=== PATIENT | male | born 1950 | race Caucasian/White ===

== ENCOUNTER → 2017-02-10 | Outpatient (CLI) | payer MEDICAID ==
[2017-02-10 12:23] LABS: CHCM 33.2; HCT 53.5 % (39.0-53.0); HDW 2.64; HGB 17.7 gm/dL (13.0-17.5); MCV 93.9 fL (80.0-100.0); RDW 13.4 % (11.5-15.5); WBC 8.7 k/uL (3.8-10.6)
[2017-02-10 12:38] LABS: ALT 35 U/L (21-72); AST 35 U/L (17-59); Alkaline Phosphatase 53 U/L (38-126); Anion Gap 10 mmol/L; Blood Urea Nitrogen 19 mg/dL (9-20); Calcium 9.7 mg/dL (8.4-10.2); Carbon Dioxide 26 mmol/L (22-30); Chloride 106 mmol/L (98-107); Cholesterol 259 mg/dL (<200); Glucose 112 mg/dL (74-99); HDL Cholesterol 76 mg/dL (40-60); Non-African American GFR(MDRD) >60 (>60 ml/min/1.73 sqM); Potassium 4.6 mmol/L (3.5-5.1); Sodium 142 mmol/L (137-145); Total Bilirubin 0.8 mg/dL (0.2-1.3); Triglycerides 206 mg/dL (<150)
== END ==
LOC: LABWHC1 12:04
PROVIDERS: ATTEND Nurse Practitioner Family
DX: E55.9 Vitamin D deficiency, unspecified (principal); R53.83 Other fatigue; E11.9 Type 2 diabetes mellitus without complications
CPT/HCPCS: 36415; 80053; 80061; 82306; 84439; 84443; 84481; 85027

== ENCOUNTER → 2017-03-01 | Outpatient (CLI) | payer MEDICAID ==
--- NOTE | 2017-03-02 11:13 | ECHOF ---
Referral Reason:R01.1 undiagnosed cardiac murmur MEASUREMENTS -------- HEIGHT: 170.2 cm WEIGHT: 108.9 kg BP: 120/80 RVIDd: 2.9 cm (< 3.3) IVSd: 1.4 cm (0.6 - 1.1) LVIDd: 4.9 cm (3.9 - 5.3) LVPWd: 1.3 cm (0.6 - 1.1) IVSs: 1.7 cm LVIDs: 3.5 cm LVPWs: 1.1 cm LA Diam: 4.0 cm (2.7 - 3.8) Ao Diam: 3.4 cm (2.0 - 3.7) AV Cusp: 1.0 cm (1.5 - 2.6) LA Diam: 4.0 cm (2.7 - 3.8) MV EXCURSION: 17.961 mm (> 18.000) MV EF SLOPE: 83 mm/s (70 - 150) EPSS: 0.6 cm MV E Bradley: 0.69 m/s MV A Bradley: 1.04 m/s MV E/A Ratio: 0.66 AV maxP.88 mmHg AV meanP.27 mmHg RAP: 5.00 mmHg RVSP: 18.48 mmHg FINDINGS -------- Sinus rhythm. This was a technically adequate study. There is moderate concentric left ventricular hypertrophy. Overall left ventricular systolic function is normal with, an EF between 55 - 60 %. The right ventricle is normal in size. The left atrial size is normal. The right atrial size is normal. Moderate to severe aortic stenosis with peak/mean pressure gradient of 67.88mmHg / 37.27mmHg, the aortic valve area by continuity equation is 1.0cm. Mild mitral annular calcification present. No mitral regurgitation. Mild tricuspid regurgitation present. There is no evidence of pulmonary hypertension. The right ventricular systolic pressure, as measured by Doppler, is 18.48mmHg. There is no pulmonic regurgitation present. The aortic root size is normal. There is no pericardial effusion. CONCLUSIONS -------- 1. There is moderate concentric left ventricular hypertrophy. 2. Moderate to severe aortic stenosis with peak/mean pressure gradient of 67.88mmHg / 37.27mmHg, the aortic valve area by continuity equation is 1.0cm. 3. Mild mitral annular calcification present. 4. No mitral regurgitation. 5. Mild tricuspid regurgitation present. 6. There is no evidence of pulmonary hypertension. 7. The right ventricular systolic pressure, as measured by Doppler, is 18.48mmHg. ECONOMIC SPECIALIST: Mila Mcclure RDCS
== END | disposition home or self-care (01) ==
LOC: RADECHMAIN 14:50
PROVIDERS: ATTEND Family Medicine
DX: I35.0 Nonrheumatic aortic (valve) stenosis (principal); I07.1 Rheumatic tricuspid insufficiency; I35.8 Other nonrheumatic aortic valve disorders
CPT/HCPCS: 93306

== ENCOUNTER → 2017-05-14 | Outpatient (CLI) | payer MEDICAID ==
[2017-05-14 17:59] LABS: Hepatitis C Virus IgG Ab Negative (Negative); Hepatitis C Virus IgG Index 0.08
[2017-05-14 18:08] LABS: Vitamin B12 >1000 pg/mL (239-931)
[2017-05-14 18:35] LABS: Hemoglobin A1C 6.5 % (4.2-6.1)
== END | disposition home or self-care (01) ==
LOC: LABWHC1 16:34
PROVIDERS: ATTEND Family Medicine
DX: Z00.01 Encounter for general adult medical examination with abnormal findings (principal); E11.9 Type 2 diabetes mellitus without complications; R53.83 Other fatigue; Z12.5 Encounter for screening for malignant neoplasm of prostate; Z13.818 Encounter for screening for other digestive system disorders
CPT/HCPCS: 86803; 82607; 83036; 36415; G0103

== ENCOUNTER → 2017-07-07 | Outpatient (CLI) | payer MEDICAID ==
[2017-07-07 09:04] LABS: CHCM 33.8; HCT 49.8 % (39.0-53.0); HDW 2.85; HGB 16.7 gm/dL (13.0-17.5); MCH 31.9 pg (25.0-35.0); MCHC 33.5 g/dL (31.0-37.0); MCV 95.2 fL (80.0-100.0); Mean Platelet Volume 8.8; RBC 5.24 m/uL (4.30-5.90); RDW 14.2 % (11.5-15.5); WBC 8.7 k/uL (3.8-10.6)
[2017-07-07 09:13] LABS: ALT 33 U/L (21-72); AST 25 U/L (17-59); Alkaline Phosphatase 64 U/L (38-126); Anion Gap 10 mmol/L; Blood Urea Nitrogen 11 mg/dL (9-20); Calcium 9.3 mg/dL (8.4-10.2); Carbon Dioxide 25 mmol/L (22-30); Chloride 105 mmol/L (98-107); Cholesterol 250 mg/dL (<200); Creatine Kinase 172 U/L (55-170); Glucose 162 mg/dL (74-99); HDL Cholesterol 75 mg/dL (40-60); Non-African American GFR(MDRD) >60 (>60 ml/min/1.73 sqM); Potassium 4.5 mmol/L (3.5-5.1); Sodium 140 mmol/L (137-145); Total Bilirubin 0.6 mg/dL (0.2-1.3); Total Protein 7.3 g/dL (6.3-8.2)
== END ==
LOC: LABWHC1 07:49
PROVIDERS: ATTEND Internal Medicine Cardiovascular Disease
DX: E78.2 Mixed hyperlipidemia (principal); I10 Essential (primary) hypertension; I25.118 Atherosclerotic heart disease of native coronary artery with other forms of angina pectoris; R00.2 Palpitations; R94.31 Abnormal electrocardiogram [ECG] [EKG]; I25.728 Atherosclerosis of autologous artery coronary artery bypass graft(s) with other forms of angina pectoris
CPT/HCPCS: 36415; 80053; 80061; 82550; 84443; 85027

== ENCOUNTER → 2017-09-07 | Outpatient (CLI) | payer MEDICAID ==
--- NOTE | 2017-09-07 10:06 | CT ---
EXAMINATION TYPE: CT sinus wo con DATE OF EXAM: 09/07/2017 COMPARISON: CT orbits dated 04/05/2010 HISTORY: Chronic sinusitis CT DLP: 593.60 mGycm. Automated Exposure Control for Dose Reduction was Utilized. TECHNIQUE: CT scan of the sinuses is performed without contrast, axial images are obtained, coronal r eformatted images are also reviewed. FINDINGS: Bilateral antrostomy defects are seen with patent ostiomeatal complexes. There is left midd le and inferior nasal turbinate mucosal hypertrophy that is nonobstructive. Postsurgical changes also seen of the maxilla with persistent maxillary spine nonunited fracture. Heterotopic ossification of the inferior lateral wall of the right maxillary sinuses likely from prior fracture. Small polypoid m ucosal thickening is present of the anterior right maxillary sinus emanating from the inferior orbita l wall measuring 4 mm. There is expansion of the left posterior ethmoid air cell with focal erosive c omponent superiorly on series 6 image 26 that have progressed from the prior exam of 2009. No gross evidence of current meningeal thickening or intracranial adjacent abscess. This soft tissue lesion is expansile measuring 1.4 x 1.8 x 1.1 cm and transverse by anterior posterior by craniocaudal dimensio n. This previously measured approximately 1.4 x 0.9 x 1.0 cm on the exam of 04/05/2010. Remaining para nasal sinuses are well aerated other than an aplastic left frontal sinus. Note is made of a left middle cranial fossa extra-axial fluid attenuated mass, probable arachnoid cys t with impression and mass effect upon the left temporal lobe. Incidental note is made of atheromatou s calcifications of the intracranial vasculature. IMPRESSION: 1. Expansile left posterior ethmoid air cell lesion measuring 1.4 x 1.8 x 1.1 cm with focal area of c ortical erosion of the calvarium. No gross evidence of current meningeal thickening or intracranial a djacent abscess. This most likely represents a mucocele although other etiologies are possible. 2. Postoperative changes of the maxillary bone and maxillary sinuses. Ostiomeatal complexes are paten t. 4 mm area of polypoid right maxillary mucosal thickening is seen. Remaining paranasal sinuses are well aerated. 3. Stable extra-axial middle cranial fossa fluid attenuated left probable arachnoid cyst. A [place] message has been communicated to John Castanon DO via the [employer] Critical Result system on 09/07/2017 10:04 AM, Message ID [id number].
== END ==
LOC: RADCTMAIN 08:53
PROVIDERS: ATTEND Otolaryngology
DX: J34.89 Other specified disorders of nose and nasal sinuses (principal); Z98.890 Other specified postprocedural states
CPT/HCPCS: 70486

== ENCOUNTER → 2017-11-15 | Outpatient (CLI) | payer MEDICAID ==
[2017-11-15 08:20] LABS: HGB 15.8 gm/dL (13.0-17.5); MCH 30.1 pg (25.0-35.0); MCHC 32.3 g/dL (31.0-37.0); MCV 93.3 fL (80.0-100.0); Mean Platelet Volume 8.2; Platelet Count 270 k/uL (150-450); RBC 5.25 m/uL (4.30-5.90); RDW 12.9 % (11.5-15.5); WBC 9.2 k/uL (3.8-10.6)
[2017-11-15 08:46] LABS: ALT 30 U/L (21-72); AST 25 U/L (17-59); Albumin 4.1 g/dL (3.5-5.0); Alkaline Phosphatase 70 U/L (38-126); Anion Gap 11 mmol/L; Blood Urea Nitrogen 13 mg/dL (9-20); Calcium 9.9 mg/dL (8.4-10.2); Carbon Dioxide 26 mmol/L (22-30); Chloride 103 mmol/L (98-107); Cholesterol 277 mg/dL (<200); Creatine Kinase 109 U/L (55-170); Glucose 165 mg/dL (74-99); HDL Cholesterol 74 mg/dL (40-60); LDL Cholesterol,Calculated 180 mg/dL (0-99); Potassium 4.6 mmol/L (3.5-5.1); Sodium 140 mmol/L (137-145); Total Bilirubin 0.5 mg/dL (0.2-1.3); Triglycerides 115 mg/dL (<150)
== END | disposition home or self-care (01) ==
LOC: LABWHC1 07:34
PROVIDERS: ATTEND Internal Medicine Cardiovascular Disease
DX: E78.2 Mixed hyperlipidemia (principal); E11.69 Type 2 diabetes mellitus with other specified complication; I25.728 Atherosclerosis of autologous artery coronary artery bypass graft(s) with other forms of angina pectoris; I10 Essential (primary) hypertension; R00.2 Palpitations
CPT/HCPCS: 36415; 80053; 80061; 82550; 84443; 85027

== ENCOUNTER → 2018-03-20 | Outpatient (CLI) | payer MEDICARE ==
[2018-03-20 14:14] LABS: HCT 46.8 % (39.0-53.0); HGB 15.6 gm/dL (13.0-17.5); MCH 30.2 pg (25.0-35.0); MCHC 33.4 g/dL (31.0-37.0); MCV 90.6 fL (80.0-100.0); Mean Platelet Volume 8.5; Platelet Count 218 k/uL (150-450); RBC 5.17 m/uL (4.30-5.90); RDW 13.2 % (11.5-15.5)
[2018-03-20 14:27] LABS: ALT 34 U/L (21-72); AST 24 U/L (17-59); Albumin 4.1 g/dL (3.5-5.0); Alkaline Phosphatase 63 U/L (38-126); Anion Gap 11 mmol/L; Blood Urea Nitrogen 12 mg/dL (9-20); Calcium 9.1 mg/dL (8.4-10.2); Carbon Dioxide 25 mmol/L (22-30); Chloride 102 mmol/L (98-107); Glucose 155 mg/dL (74-99); Potassium 4.2 mmol/L (3.5-5.1); Sodium 138 mmol/L (137-145); Total Bilirubin 0.6 mg/dL (0.2-1.3); Total Protein 6.6 g/dL (6.3-8.2)
[2018-03-20 22:28] LABS: Hemoglobin A1C 7.7 % (4.0-6.0)
== END | disposition home or self-care (01) ==
LOC: LABWHC1 12:48
PROVIDERS: ATTEND Internal Medicine Cardiovascular Disease
DX: E11.69 Type 2 diabetes mellitus with other specified complication (principal); I25.118 Atherosclerotic heart disease of native coronary artery with other forms of angina pectoris; E78.2 Mixed hyperlipidemia; I10 Essential (primary) hypertension; E55.9 Vitamin D deficiency, unspecified
CPT/HCPCS: 36415; 80053; 82306; 83036; 85027

== ENCOUNTER → 2018-04-17 | Outpatient (CLI) | payer MEDICARE ==
[2018-04-17 13:41] LABS: Cholesterol 236 mg/dL (<200); HDL Cholesterol 61 mg/dL (40-60); LDL Cholesterol,Calculated 137 mg/dL (0-99); Triglycerides 192 mg/dL (<150)
== END | disposition home or self-care (01) ==
LOC: LABWHC1 11:54
PROVIDERS: ATTEND Family Medicine
DX: Z00.01 Encounter for general adult medical examination with abnormal findings (principal); I25.10 Atherosclerotic heart disease of native coronary artery without angina pectoris; E78.5 Hyperlipidemia, unspecified; Z12.5 Encounter for screening for malignant neoplasm of prostate
CPT/HCPCS: 36415; 80061

== ENCOUNTER → 2019-02-24 | Outpatient (CLI) | payer MEDICARE ==
[2019-02-24 07:23] LABS: Basophils # (A) 0.1 k/uL (0-0.2); Basophils % (A) 1 %; Eosinophils # (A) 0.3 k/uL (0-0.7); Eosinophils % (A) 3 %; HCT 49.5 % (39.0-53.0); HGB 16.3 gm/dL (13.0-17.5); Lymphocytes # (A) 2.9 k/uL (1.0-4.8); Lymphocytes % (A) 32 %; MCH 30.7 pg (25.0-35.0); MCHC 32.9 g/dL (31.0-37.0); MCV 93.2 fL (80.0-100.0); Mean Platelet Volume 8.1; Monocytes # (A) 0.6 k/uL (0-1.0); Monocytes % (A) 7 %; Neutrophils # (A) 4.9 k/uL (1.3-7.7); Neutrophils % (A) 55 %; Platelet Count 234 k/uL (150-450); RBC 5.31 m/uL (4.30-5.90)
[2019-02-24 09:43] LABS: T4, Free (Free Thyroxine) 0.89 ng/dL (0.78-2.19)
== END | disposition home or self-care (01) ==
LOC: LABWHC1 06:54
PROVIDERS: ATTEND Psychiatry & Neurology Neurology
DX: E11.9 Type 2 diabetes mellitus without complications (principal); Z79.899 Other long term (current) drug therapy
CPT/HCPCS: 36415; 82306; 84439; 84443; 84481; 85025

== ENCOUNTER → 2019-07-07 | Outpatient (CLI) | payer MEDICARE ==
[2019-07-07 16:16] LABS: African American GFR (CKD) 106.4 (60.0-200.0); Albumin 4.5 g/dL (3.80-4.90); Albumin/Globulin Ratio 2.25 (1.60-3.17); BUN/Creat Ratio 16.25 Ratio (12.00-20.00); Calcium 9.7 mg/dL (8.7-10.3); Chol/HDL Ratio 3.44; LDL Cholesterol,Calculated 134.8 mg/dL (0.0-131.0); Potassium 4.4 mmol/L (3.5-5.5); Total Bilirubin 0.8 mg/dL (0.2-1.2); Total Protein 6.5 g/dL (6.2-8.2); VLDL Calculation 41.2 mg/dL (5.00-40.00)
[2019-07-07 19:48] LABS: Hemoglobin A1C 7.1 % (4.0-6.0)
== END | disposition home or self-care (01) ==
LOC: LABWHC1 07:16
PROVIDERS: ATTEND Family Medicine
DX: Z12.5 Encounter for screening for malignant neoplasm of prostate (principal); R53.83 Other fatigue; E55.9 Vitamin D deficiency, unspecified; Z00.01 Encounter for general adult medical examination with abnormal findings; E78.5 Hyperlipidemia, unspecified; E11.65 Type 2 diabetes mellitus with hyperglycemia; M54.5 Low back pain; I35.0 Nonrheumatic aortic (valve) stenosis; I25.10 Atherosclerotic heart disease of native coronary artery without angina pectoris
CPT/HCPCS: 36415; 80053; 80061; 82306; 82533; 83036; 84153; 84443

== ENCOUNTER 2019-09-06 09:04 | Inpatient (IN) | payer MEDICARE ==
[2019-09-06] MEDS ORDERED: SODIUM CHLORIDE 0.9% 1,000 ML IV STA (09:30)
[2019-09-06 10:02] LABS: Basophils # (A) 0.2 k/uL (0-0.2); Basophils % (A) 1 %; Eosinophils # (A) 0.5 k/uL (0-0.7); Eosinophils % (A) 4 %; HCT 47.2 % (39.0-53.0); HGB 15.7 gm/dL (13.0-17.5); Lymphocytes # (A) 2.7 k/uL (1.0-4.8); Lymphocytes % (A) 23 %; MCH 31.2 pg (25.0-35.0); MCHC 33.3 g/dL (31.0-37.0); MCV 93.8 fL (80.0-100.0); Mean Platelet Volume 8.5; Monocytes # (A) 0.9 k/uL (0-1.0); Monocytes % (A) 8 %; Neutrophils # (A) 7.4 k/uL (1.3-7.7); Neutrophils % (A) 62 %; Platelet Count 257 k/uL (150-450); RBC 5.03 m/uL (4.30-5.90); RDW 12.6 % (11.5-15.5); WBC 11.9 k/uL (3.8-10.6)
[2019-09-06 10:11] LABS: ALT 37 U/L (21-72); AST 29 U/L (17-59); African American GFR (CKD) >90 (>60 ml/min/1.73 sqM); Albumin 4.1 g/dL (3.5-5.0); Alkaline Phosphatase 55 U/L (38-126); Anion Gap 7 mmol/L; Blood Urea Nitrogen 15 mg/dL (9-20); Calcium 9.5 mg/dL (8.4-10.2); Carbon Dioxide 27 mmol/L (22-30); Chloride 105 mmol/L (98-107); Glucose 173 mg/dL (74-99); INR 0.9 (<1.2); Non-African American GFR(CKD) 86 (>60 ml/min/1.73 sqM); Potassium 4.1 mmol/L (3.5-5.1); Prothrombin Time 9.5 sec (9.0-12.0); Sodium 139 mmol/L (137-145); Total Bilirubin 0.5 mg/dL (0.2-1.3)
--- NOTE | 2019-09-06 10:25 | ED ---
Dizziness HPI - General Source: patient, RN notes reviewed, old records reviewed Mode of arrival: wheelchair Limitations: no limitations <Diana Hendrickson - Last Filed: 09/06/19 11:41> <Raheem Walters - Last Filed: 09/06/19 12:12> - General Chief Complaint: Syncope Stated Complaint: syncope Time Seen by Provider: 09/06/19 09:22 - History of Present Illness Initial Comments: This patient's a 69-year-old male with a history of coronary artery disease, CABG in 1999, splenectomy sinus surgery and jaw surgery. He presents today for frequent episodes of syncope. Patient reports that he had one last night where he was starting to feel dizzy and lightheaded, passed out landing on the ground for approximately 10 minutes. He complains that he's been having some headaches. He denies any chest pain prior to the syncopal episodes. He states that he does have a headache at that time and has some abnormal breathing. Patient reports that he has not followed with a clinical informatics educator since his CABG in 1999. He has a history of diabetes and is on metformin. Incidental note Patient states that he's also been dealing with "a parasite infection". Patient states that he has a open wound over his mid back which she believes he pulled a parasite from. Patient states that he's had this for 2 weeks. States his ever had any symptoms like this before. He also states that he thinks that there is a parasite infection over his right eye brow. (Diana Hendrickson) - Related Data Home Medications Medication Instructions Recorded Confirmed metFORMIN HCL 1,000 mg PO BID 10/11/14 09/06/19 Calcium Carbonate [Calcium] 600 mg PO DAILY 09/06/19 09/06/19 Cholecalciferol [Vitamin D3 (25 1,000 unit PO DAILY 09/06/19 09/06/19 Mcg = 1000 Iu)] Gelatin 650mg 1,300 mg PO DAILY 09/06/19 09/06/19 Krill Oil 500 mg PO DAILY 09/06/19 09/06/19 Magnesium 200 mg PO DAILY 09/06/19 09/06/19 Milk Thistle 150 mg PO DAILY 09/06/19 09/06/19 [place]-3 Fatty Acids [[place]-3] 1,000 mg PO DAILY 09/06/19 09/06/19 Ubidecarenone [Co Q-10] 100 mg PO DAILY 09/06/19 09/06/19 Vitamin B Complex 1 cap PO DAILY 09/06/19 09/06/19 Allergies Allergy/AdvReac Type Severity Reaction Status Date / Time No Known Allergies Allergy Verified 09/06/19 11:05 Review of Systems ROS Other: All systems not noted in ROS Statement are negative. <Diana Hendrickson - Last Filed: 09/06/19 11:41> ROS Other: All systems not noted in ROS Statement are negative. <Raheem Walters - Last Filed: 09/06/19 12:12> ROS Statement: Those systems with pertinent positive or pertinent negative responses have been documented in the HPI. Past Medical History Past Medical History: Coronary Artery Disease (CAD) Additional Past Medical History / Comment(s): itp, History of Any Multi-Drug Resistant Organisms: None Reported Past Surgical History: Appendectomy, Coronary Bypass/CABG Additional Past Surgical History / Comment(s): spleenectomy, sinus surgery, jaw surgery Past Psychological History: No Psychological Hx Reported Smoking Status: Never smoker <Diana Hendrickson - Last Filed: 09/06/19 11:41> General Exam Limitations: no limitations General appearance: alert, in no apparent distress Head exam: Present: atraumatic, normocephalic, normal inspection Eye exam: Present: normal appearance, PERRL, EOMI. Absent: scleral icterus, conjunctival injection, periorbital swelling ENT exam: Present: normal exam, mucous membranes moist Neck exam: Present: normal inspection Respiratory exam: Present: normal lung sounds bilaterally. Absent: respiratory distress, wheezes, rales, rhonchi, stridor Cardiovascular Exam: Present: normal rhythm, systolic murmur. Absent: regular rate (Systolic murmur), normal heart sounds, diastolic murmur, rubs, gallop, clicks GI/Abdominal exam: Present: soft, normal bowel sounds. Absent: distended, tenderness, guarding, rebound, rigid Extremities exam: Present: normal inspection, full ROM, normal capillary refill. Absent: tenderness, pedal edema, joint swelling, calf tenderness Back exam: Present: normal inspection, other (small area of open wound over lower thoracic and lumbar spine. No abscess or purulent drainage) Neurological exam: Present: alert, oriented X3, CN II-XII intact Psychiatric exam: Present: normal affect, normal mood Skin exam: Present: warm, dry, intact, normal color. Absent: rash <Diana Hendrickson - Last Filed: 09/06/19 11:41> - General Exam Comments Initial Comments: 69-year-old male. No distress. (Diana Hendrickson) Course <RomeoRaheem - Last Filed: 09/06/19 12:12> Vital Signs 09/06/19 09/06/19 09/06/19 09:06 09:43 10:09 Temperature 98.1 F 98.3 F Pulse Rate 88 87 Respiratory 16 20 20 Rate Blood Pressure 138/82 149/87 O2 Sat by Pulse 96 93 L Oximetry 09/06/19 11:30 Temperature Pulse Rate 74 Respiratory 18 Rate Blood Pressure 129/79 O2 Sat by Pulse 95 Oximetry - Reevaluation(s) Reevaluation #1: Physician medical support assistant supervision: I proceeded [id number] evaluation the patient patient did present with complaints of frequent syncopal episodes. Patient will be admitted he currently is awake alert oriented. I did discuss the case with Dr. Carolee flowers. Cardiology and neurology will be consulted. (Raheem Walters) Medical Decision Making - Lab Data Result diagrams: 09/06/19 09:35 09/06/19 09:35 - Radiology Data Radiology results: report reviewed <Diana Hendrickson - Last Filed: 09/06/19 11:41> - Lab Data Result diagrams: 09/06/19 09:35 09/06/19 09:35 <RomeoRaheem - Last Filed: 09/06/19 12:12> - Medical Decision Making is a 69-year-old male presents for his pharmacy of multiple syncopal episodes over the past few weeks. He reports that sometimes he is had a syncopal episode On the ground for a few minutes before he regained his strength to stand up again. He does report he had one yesterday and a positive loss consciousness. Patient CT of the brain was reviewed and negative for any acute process at this time. Evidence of sinus disease. EKG was performed shows no significant ST elevations at this time but some irregularity. No. The previous EKG to compare from. Blood work was reviewed. Evidence of an elevated troponin of 0.049. He denies any chest pain at this moment in time. Patient was started on heparin, given aspirin in the emergency department. He complained of some nausea today. He does have a history of CABG performed 1999 but does not members who his clinical informatics educator was. We discussed that we would admit the Patient with consult to cardiology and neurology for the syncopal episodes and NSTEMI. Patient is agreeable to this plan. (Diana Hendrickson) - Lab Data Lab Results 09/06/19 09/06/19 09/06/19 Range/Units 09:35 09:35 09:35 WBC 11.9 H (3.8-10.6) k/uL RBC 5.03 (4.30-5.90) m/uL Hgb 15.7 (13.0-17.5) gm/dL Hct 47.2 (39.0-53.0) % MCV 93.8 (80.0-100.0) fL MCH 31.2 (25.0-35.0) pg MCHC 33.3 (31.0-37.0) g/dL RDW 12.6 (11.5-15.5) % Plt Count 257 (150-450) k/uL Neutrophils % 62 % Lymphocytes % 23 % Monocytes % 8 % Eosinophils % 4 % Basophils % 1 % Neutrophils # 7.4 (1.3-7.7) k/uL Lymphocytes # 2.7 (1.0-4.8) k/uL Monocytes # 0.9 (0-1.0) k/uL Eosinophils # 0.5 (0-0.7) k/uL Basophils # 0.2 (0-0.2) k/uL PT 9.5 (9.0-12.0) sec INR 0.9 (<1.2) APTT 24.0 (22.0-30.0) sec Sodium 139 (137-145) mmol/L Potassium 4.1 (3.5-5.1) mmol/L Chloride 105 (98-107) mmol/L Carbon Dioxide 27 (22-30) mmol/L Anion Gap 7 mmol/L BUN 15 (9-20) mg/dL Creatinine 0.91 (0.66-1.25) mg/dL Est GFR (CKD-EPI)AfAm >90 (>60 ml/min/1.73 sqM) Est GFR (CKD-EPI)NonAf 86 (>60 ml/min/1.73 sqM) Glucose 173 H (74-99) mg/dL Calcium 9.5 (8.4-10.2) mg/dL Magnesium 2.0 (1.6-2.3) mg/dL Total Bilirubin 0.5 (0.2-1.3) mg/dL AST 29 (17-59) U/L ALT 37 (21-72) U/L Alkaline Phosphatase 55 (38-126) U/L Troponin I (0.000-0.034) ng/mL Total Protein 7.0 (6.3-8.2) g/dL Albumin 4.1 (3.5-5.0) g/dL Urine Color Urine Appearance (Clear) Urine pH (5.0-8.0) Ur Specific [place] (1.001-1.035) Urine Protein (Negative) Urine Glucose (UA) (Negative) Urine Ketones (Negative) Urine Blood (Negative) Urine Nitrite (Negative) Urine Bilirubin (Negative) Urine Urobilinogen (<2.0) mg/dL Ur Leukocyte Esterase (Negative) 09/06/19 09/06/19 Range/Units 09:35 09:43 WBC (3.8-10.6) k/uL RBC (4.30-5.90) m/uL Hgb (13.0-17.5) gm/dL Hct (39.0-53.0) % MCV (80.0-100.0) fL MCH (25.0-35.0) pg MCHC (31.0-37.0) g/dL RDW (11.5-15.5) % Plt Count (150-450) k/uL Neutrophils % % Lymphocytes % % Monocytes % % Eosinophils % % Basophils % % Neutrophils # (1.3-7.7) k/uL Lymphocytes # (1.0-4.8) k/uL Monocytes # (0-1.0) k/uL Eosinophils # (0-0.7) k/uL Basophils # (0-0.2) k/uL PT (9.0-12.0) sec INR (<1.2) APTT (22.0-30.0) sec Sodium (137-145) mmol/L Potassium (3.5-5.1) mmol/L Chloride (98-107) mmol/L Carbon Dioxide (22-30) mmol/L Anion Gap mmol/L BUN (9-20) mg/dL Creatinine (0.66-1.25) mg/dL Est GFR (CKD-EPI)AfAm (>60 ml/min/1.73 sqM) Est GFR (CKD-EPI)NonAf (>60 ml/min/1.73 sqM) Glucose (74-99) mg/dL Calcium (8.4-10.2) mg/dL Magnesium (1.6-2.3) mg/dL Total Bilirubin (0.2-1.3) mg/dL AST (17-59) U/L ALT (21-72) U/L Alkaline Phosphatase (38-126) U/L Troponin I 0.047 H* (0.000-0.034) ng/mL Total Protein (6.3-8.2) g/dL Albumin (3.5-5.0) g/dL Urine Color Yellow Urine Appearance Clear (Clear) Urine pH 5.5 (5.0-8.0) Ur Specific [place] 1.015 (1.001-1.035) Urine Protein Negative (Negative) Urine Glucose (UA) Negative (Negative) Urine Ketones Negative (Negative) Urine Blood Negative (Negative) Urine Nitrite Negative (Negative) Urine Bilirubin Negative (Negative) Urine Urobilinogen <2.0 (<2.0) mg/dL Ur Leukocyte Esterase Negative (Negative) 09/06/19 10:25 EKG shows normal sinus rhythm, inferior infarct age undetermined. Anterior infarct age undetermined. Ventricular rate of 91 bpm. Vitals 184 ms. QRS ration is 102 ms. QT QTc is 360/442 ms. (Diana Hendrickson) - Radiology Data Chest x-ray shows cardiomegaly. CT of the brain shows no acute intracranial abnormality. Probable arachnoid cyst in the anterior left middle cerebral canal fossa. Degenerative changes. Chronic mucoperiosteal thickening involving the ethmoid air cells. CT of the cervical spine shows no acute osseous lesion. Degenerative changes noted. (Diana Hendrickson) Critical Care Time Critical Care Time: Yes Total Critical Care Time: 30 <Diana Hendrickson - Last Filed: 09/06/19 11:41> Critical Care Time: Greater than 30 minutes was spent managing patient's care with critical care time used putting Patient on heparin after finding Patient has an unsteady interretptingg EKG and imaging reports. (Diana Hendrickson) Disposition Is patient prescribed a controlled substance at d/c from ED?: No Time of Disposition: 11:44 <Diana Hendrickson - Last Filed: 09/06/19 11:41> <Raheem Walters - Last Filed: 09/06/19 12:12> Clinical Impression: Syncope, NSTEMI (non-ST elevated myocardial infarction), Back wound, Diabetes Disposition: ADMITTED IP TO THIS HOSP Condition: Stable Referrals: Timo Mayorga III, MD [Primary Care Provider] - 1-2 days
[2019-09-06] MEDS ORDERED: ASPIRIN 81 MG PO STA (10:36)
[2019-09-06] MEDS ORDERED: ONDANSETRON 4 MG/2 ML VIAL IVP STA ×2 (10:36→11:48)
--- NOTE | 2019-09-06 10:53 | CT ---
EXAMINATION TYPE: CT brain lois cerna DATE OF EXAM: 09/06/2019 COMPARISON: NONE HISTORY: Syncopal episodes CT DLP: 1572 mGycm Automated exposure control for dose reduction was used. TECHNIQUE: CT scan of the head and cervical spine are performed without contrast. FINDINGS: BRAIN: There is a fluid collection anterior left temporal horn likely representing a arachnoid cyst. There is mild, generalized changes of sulcal prominence and ventriculomegaly, compatible with atrophi c change. There is mild, diffuse periventricular white matter lucency, compatible with chronic white matter ischemic change. There is no acute focal lesion, mass effect or midline shift identified. I do not see evidence of intracranial blood. There is mucoperiosteal thickening involving the ethmoid sinuses bilaterally. The mastoid air cells a re clear. The bony calvarium is intact. IMPRESSION: 1. NO ACUTE INTRACRANIAL ABNORMALITY. 2. PROBABLE ARACHNOID CYST IN THE ANTERIOR LEFT MIDDLE CRANIAL FOSSA. 3. DEGENERATIVE CHANGE. 4. CHRONIC MUCOPERIOSTEAL THICKENING INVOLVING THE ETHMOID AIR CELLS. CERVICAL SPINE: Visualized portions of the lungs are clear. Prevertebral soft tissues are normal. There is a reversal of the normal cervical lordosis. Vertebral body height and alignment are maintain ed. There is diffuse degenerative disc disease and hypertrophic spondylosis with relative sparing of C2-3 and C3-4. The vertebral joint disease present at these levels. There is facet arthropathy presen t bilaterally at C2-3 and C3-4 and to a lesser extent C4-5. No fractures are seen. IMPRESSION: 1. NO ACUTE OSSEOUS LESION. 2. DEGENERATIVE CHANGE.
[2019-09-06 10:57] LABS: Appearance,Urine Clear (Clear); Bilirubin,Urine Negative (Negative); Blood,Urine Negative (Negative); Color,Urine Yellow; Glucose,Urine (UA) Negative (Negative); Ketones,Urine Negative (Negative); Leukocyte Esterase,Urine Negative (Negative); Nitrite,Urine Negative (Negative); PH, Urine 5.5 (5.0-8.0); Protein,Urine Negative (Negative); Specific Gravity,Urine 1.015 (1.001-1.035); Urobilinogen,Urine <2.0 mg/dL (<2.0)
--- NOTE | 2019-09-06 11:16 | XR ---
EXAMINATION TYPE: XR chest 2V DATE OF EXAM: 09/06/2019 HISTORY: pain. REFERENCE: Previous study dated 07/07/2012. FINDINGS: The heart is enlarged. The lungs are clear. Pleural spaces are clear. IMPRESSION: CARDIOMEGALY.
[2019-09-06] MEDS ORDERED: HEPARIN SODIUM,PORCINE 5,000 UNIT/ML 1 ML VIAL IV PRN (11:18)
[2019-09-06] MEDS ORDERED: HEPARIN SODIUM,PORCINE 5,000 UNIT/ML 1 ML VIAL IV ONE (11:18)
[2019-09-06] MEDS: HEPARIN SOD,PORK IN 0.45% NACL 25,000 UNIT in 0.45% NACL 1 250ML.BAG IV SCH (11:43)
[2019-09-06] MEDS ORDERED: NITROGLYCERIN SL TABS 0.4 MG TAB SUBLINGUAL PRN (11:45)
[2019-09-06 13:40] LABS: Glucose,Whole Blood 114 mg/dL (75-99)
--- NOTE | 2019-09-06 14:35 | P.CRDCN ---
History of Present Illness Consult date: 09/06/19 History of present illness: This is a 69-year-old gentleman with history of coronary bypass surgery in 2000 with the MARTE graft to the LAD and known aortic stenosis, comes here with complaints of exertional syncopal episodes. Patient claims that when he does any exertional activity like climbing stairs, he feels lightheaded and passed out. He came to the emergency room today with an episode of syncope lasting about 510 minutes. His EKGs showed evidence of possible old myocardial infarction. Did not complain of any chest pain or palpitations. His cardiac enzymes showed abnormal troponin value. At the time of my examination patient is comfortable. He claims that for years ago he had a 3-D echocardiogram by a copy camera operator in [place] who told him that his valve was not significant enough at the time. Clinically he does have significant murmur in the aortic area consistent with severe aortic stenosis. An echocardiogram done in 2017 in this hospital showed evidence of at least moderate to severe aortic stenosis. We'll proceed with echo and if necessary DAMARI examination. Most probably may need a cardiac catheterization and possible aortic valve replacement. Review of Systems As per the chart Past Medical History Past Medical History: Coronary Artery Disease (CAD) Additional Past Medical History / Comment(s): itp, History of Any Multi-Drug Resistant Organisms: None Reported Past Surgical History: Appendectomy, Coronary Bypass/CABG Additional Past Surgical History / Comment(s): spleenectomy, sinus surgery, jaw surgery Past Psychological History: No Psychological Hx Reported Smoking Status: Never smoker Medications and Allergies Home Medications Medication Instructions Recorded Confirmed Type metFORMIN HCL 1,000 mg PO BID 10/11/14 09/06/19 History Calcium Carbonate [Calcium] 600 mg PO DAILY 09/06/19 09/06/19 History Cholecalciferol [Vitamin D3 (25 1,000 unit PO DAILY 09/06/19 09/06/19 History Mcg = 1000 Iu)] Gelatin 650mg 1,300 mg PO DAILY 09/06/19 09/06/19 History Krill Oil 500 mg PO DAILY 09/06/19 09/06/19 History Magnesium 200 mg PO DAILY 09/06/19 09/06/19 History Milk Thistle 150 mg PO DAILY 09/06/19 09/06/19 History Woody-3 Fatty Acids [Woody-3] 1,000 mg PO DAILY 09/06/19 09/06/19 History Ubidecarenone [Co Q-10] 100 mg PO DAILY 09/06/19 09/06/19 History Vitamin B Complex 1 cap PO DAILY 09/06/19 09/06/19 History Allergies Allergy/AdvReac Type Severity Reaction Status Date / Time No Known Allergies Allergy Verified 09/06/19 11:05 Physical Exam Vitals: Vital Signs Temp Pulse Resp BP Pulse Ox 09/06/19 13:00 79 122/74 95 09/06/19 12:30 79 121/72 93 L 09/06/19 12:00 77 118/68 95 09/06/19 11:30 74 18 129/79 95 09/06/19 10:09 20 09/06/19 09:43 98.3 F 87 20 149/87 93 L 09/06/19 09:06 98.1 F 88 16 138/82 96 Intake and Output 09/05/19 09/06/19 09/06/19 22:59 06:59 14:59 Other: Weight 106.594 kg GENERAL EXAM: Patient is alert and oriented and doesn't appear to be in any acute distress HEENT: Normocephalic. Normal reaction of pupils, equal size, normal range of extraocular motion. No erythema or exudates in the throat. NECK: No masses, no nuchal rigidity. CHEST: No chest wall deformity. LUNGS: Equal air entry with no crackles or wheeze. HEART: S1 and S2 normal. Loud systolic murmur in the aortic area ABDOMEN: No hepatosplenomegaly, normal bowel sounds, no guarding or rigidity. SKIN: No rashes CENTRAL NERVOUS SYSTEM: No focal deficits. EXTREMITIES: No cyanosis, clubbing or edema. Results 09/06/19 09:35 09/06/19 09:35 Cardiac Enzymes 09/06/19 09/06/19 Range/Units 09:35 09:35 AST 29 (17-59) U/L Troponin I 0.047 H* (0.000-0.034) ng/mL Coagulation 09/06/19 Range/Units 09:35 PT 9.5 (9.0-12.0) sec APTT 24.0 (22.0-30.0) sec CBC 09/06/19 Range/Units 09:35 WBC 11.9 H (3.8-10.6) k/uL RBC 5.03 (4.30-5.90) m/uL Hgb 15.7 (13.0-17.5) gm/dL Hct 47.2 (39.0-53.0) % Plt Count 257 (150-450) k/uL Comprehensive Metabolic Panel 09/06/19 Range/Units 09:35 Sodium 139 (137-145) mmol/L Potassium 4.1 (3.5-5.1) mmol/L Chloride 105 (98-107) mmol/L Carbon Dioxide 27 (22-30) mmol/L BUN 15 (9-20) mg/dL Creatinine 0.91 (0.66-1.25) mg/dL Glucose 173 H (74-99) mg/dL Calcium 9.5 (8.4-10.2) mg/dL AST 29 (17-59) U/L ALT 37 (21-72) U/L Alkaline Phosphatase 55 (38-126) U/L Total Protein 7.0 (6.3-8.2) g/dL Albumin 4.1 (3.5-5.0) g/dL Current Medications Generic Name Dose Route Start Last Admin Trade Name Freq PRN Reason Stop Dose Admin Aspirin 325 mg 09/07/19 09:00 Aspirin PO DAILY [facility] Heparin Sodium (Porcine) 0 unit 09/06/19 11:18 Heparin IV PER PROTOCOL PRN Low PTT Protocol Heparin Sodium/Sodium Chloride 250 mls @ 9.967 mls/hr 09/06/19 11:30 09/06/19 11:43 25,000 unit/ Sodium Chloride IV 9.35 units/kg/hr .Q24H MASSIMO 9.967 mls/hr Administration Protocol 9.35 UNITS/KG/HR Nitroglycerin 0.4 mg 09/06/19 11:45 Nitrostat SUBLINGUAL Q5M PRN Chest Pain Intake and Output 09/05/19 09/06/19 09/06/19 22:59 06:59 14:59 Other: Weight 106.594 kg Patient Weight 09/07/19 06:59 Weight 106.594 kg 09/06/19 09:35 09/06/19 09:35 EKG Interpretations (text) Sinus rhythm with possible old inferior wall FL Assessment and Plan (1) Recurrent syncope Current Visit: Yes Status: Acute Code(s): R55 - SYNCOPE AND COLLAPSE SNOMED Code(s): 119779813 (2) Severe aortic stenosis Current Visit: Yes Status: Acute Code(s): I35.0 - NONRHEUMATIC AORTIC (VALVE) STENOSIS SNOMED Code(s): 64369807 (3) Troponin level elevated Current Visit: Yes Status: Acute Code(s): R79.89 - OTHER SPECIFIED ABNORMAL FINDINGS OF BLOOD CHEMISTRY SNOMED Code(s): 481965608 Plan: We will continue to monitor him for any arrhythmias. We'll get an echocardiogram. Will follow [facility] enzymes studies. Most probably need a DAMARI and cardiac cath and possible aortic valve replacement
--- NOTE | 2019-09-06 15:52 | P.CNNES ---
History of Present Illness Consult date: 09/06/19 History of Present Illness: Mr. Joseph Nelson is a 69-year-old male who was seen in neurologic consultation regarding syncope, on 09/06/2019. The patient reports that his episodes of syncope have occurred following and associated with exertion. He notices that when he is climbing the stairs becomes short of breath. He then notices he feels as if everything goes limp. He sometimes falls to the floor. He does not always lose consciousness. Mr. Nelson notices that when he falls to the floor and often will take several minutes before he is able to move his arms and legs and actually get up. Other times when he passes out, he has awakened to found that he has lost control of his bowels. He denies loss of bladder control. He denies tongue biting. He denies postictal confusion. Mr. Nelson notes that he become short of breath and has pain with inspiration. The symptoms are prior to his loss of consciousness or falling to the floor. Mr. Dominick mobley notes that for the past couple of weeks he has been having headaches. He denies a history of headaches. He is also concerned about his neck. He reports having a bulging disc in his neck. He says he has been "squeezing" the muscles of his neck. He wonders if he has caused pinching of the nerve in his neck. Mr. Nelson denies visual changes. He denies difficulty swallowing. He does feel as if he is having difficulty with memory and word finding. Mr. Nelson reports having low back pain and knee pain, therefore he uses a cane for assistance with ambulation. He also reports difficulty with balance. Review of Systems In addition to that noted in history of chief complaint, the patient reports hiatal hernia and wonders if this is interfering with his breathing. He also complains of rashes on his low back and under his arms. He reports cysts on various locations of his body. Past Medical History Past Medical History: Coronary Artery Disease (CAD), Diabetes Mellitus, Hyperlipidemia, Sleep Apnea/CPAP/BIPAP Additional Past Medical History / Comment(s): itp, History of Any Multi-Drug Resistant Organisms: None Reported Past Surgical History: Appendectomy, Coronary Bypass/CABG Additional Past Surgical History / Comment(s): spleenectomy, sinus surgery, jaw surgery Past Psychological History: No Psychological Hx Reported Smoking Status: Never smoker Medications and Allergies Home Medications Medication Instructions Recorded Confirmed Type metFORMIN HCL 1,000 mg PO BID 10/11/14 09/06/19 History Calcium Carbonate [Calcium] 600 mg PO DAILY 09/06/19 09/06/19 History Cholecalciferol [Vitamin D3 (25 1,000 unit PO DAILY 09/06/19 09/06/19 History Mcg = 1000 Iu)] Gelatin 650mg 1,300 mg PO DAILY 09/06/19 09/06/19 History Krill Oil 500 mg PO DAILY 09/06/19 09/06/19 History Magnesium 200 mg PO DAILY 09/06/19 09/06/19 History Milk Thistle 150 mg PO DAILY 09/06/19 09/06/19 History [place]-3 Fatty Acids [[place]-3] 1,000 mg PO DAILY 09/06/19 09/06/19 History Ubidecarenone [Co Q-10] 100 mg PO DAILY 09/06/19 09/06/19 History Vitamin B Complex 1 cap PO DAILY 09/06/19 09/06/19 History Allergies Allergy/AdvReac Type Severity Reaction Status Date / Time No Known Allergies Allergy Verified 09/06/19 11:05 Physical Examination - Vital Signs Vital Signs: Vital Signs Temp Pulse Resp BP Pulse Ox 09/06/19 13:00 79 122/74 95 09/06/19 12:30 79 121/72 93 L 09/06/19 12:00 77 118/68 95 09/06/19 11:30 74 18 129/79 95 09/06/19 10:09 20 09/06/19 09:43 98.3 F 87 20 149/87 93 L 09/06/19 09:06 98.1 F 88 16 138/82 96 Intake and Output 09/06/19 09/06/19 09/06/19 06:59 14:59 22:59 Other: Weight 106.594 kg General: The patient is morbidly obese. He is in no acute distress. HEENT: Head is atraumatic, normocephalic. Fundus without papilledema. There is no scleral icterus. Mucous members are moist. Neck: Supple, without carotid bruits. Heart: Regular rate and rhythm with a grade 4/6 systolic murmur Lungs: Clear to auscultation Extremities: Without edema Neurological examination Mental status: The patient is awake, alert and oriented 3. His speech is clear. There is no dysarthria or aphasia Cranial nerves: Pupils are equal, round and reactive to light. Visual ferrrea are full to confrontation. Extraocular muscles are intact. There is no facial asymmetry. Facial sensations intact. Hearing is grossly intact. Uvula and palate are midline. Shoulder shrug is symmetric. Tongue protrudes midline. Motor: Strength is 5/5 throughout Sensation: There is distal gradient sensory loss in the bilateral lower extremities. Coordination: Finger to nose testing is intact. There is no dysmetria. There is no ataxia. Deep tendon reflexes: 1-2+/4+ throughout. Plantar responses are flexor bilaterally. Gait: Not assessed Results - Laboratory Findings CBC and BMP: 09/06/19 09:35 09/06/19 09:35 Abnormal Lab Findings: Abnormal Labs 09/06/19 09/06/19 09/06/19 09:35 09:35 09:35 WBC 11.9 H Glucose 173 H POC Glucose (mg/dL) Troponin I 0.047 H* 09/06/19 13:37 WBC Glucose POC Glucose (mg/dL) 114 H Troponin I Assessment and Plan Assessment: 1) Cardiogenic syncope 2) sensory loss consistent with peripheral neuropathy likely secondary to diabetes mellitus 3) computed tomography scan of the brain reveals arachnoid cyst (1) Recurrent syncope Current Visit: Yes Status: Acute Code(s): R55 - SYNCOPE AND COLLAPSE SNOMED Code(s): 646078454 Plan: 1) no further neurologic intervention is necessary at this time. Please call with questions or concerns Thank you for allowing me to participate in the care of this patient Time with Patient: Greater than 30
[2019-09-06 16:57] LABS: Glucose,Whole Blood 133 mg/dL (75-99)
--- NOTE | 2019-09-06 18:35 | P.HPIM ---
History of Present Illness H&P Date: 09/06/19 Chief Complaint: Syncope Mr. Nelson is a 69-year-old male with a past medical history of coronary artery disease status post CABG, aortic stenosis, type 2 diabetes mellitus, hyperlipidemia, obstructive sleep apnea on CPAP coming to the hospital with a chief complaint of syncope. Patient states for the past 1-2 months he has been having dizziness and feels lightheaded. Yesterday he felt dizzy and passed out for almost 5-10 minutes. Patient denies having any loss of bowel or bladder control. No tongue bites. He denies having any chest pain or palpitations. Patient states that he gets short of breath on taking a flight of stairs in the recent months. Patient has, motor that is consistent with severe aortic stenosis, he states that he has this murmur for a long period of time. Patient denies having any fevers chills or rigors. No cough or difficulty in breathing. No dysuria or hematuria. No alcohol pain nausea vomiting or diarrhea. No weakness of his extremities. No headaches or blurring of vision. No speech abnormalities. In the emergency room patient had a CT of the head that was showing no acute intracranial process. He also had a chest x-ray that is within normal limits and an EKG showing normal sinus rhythm. There is mild elevation of troponins at 0.047. The patient has been admitted for further management. Review of Systems REVIEW OF SYSTEMS: PSYCH: No anxiety or depression NEURO:No c/o weakness of the extremties, No facial droop, No speech abnormalities. VASCULAR: Peripheral nervous system within the normal limits no edema HEMATOLOGIC: No history of easy bleeding and bruising . No recent infections . RESPIRATORY: No cough, No SOB, No chest discomfort. IMMUNE: No infections INTEGUMENT: no rashes OPHTHALMOLOGIC: No blurry vision and no eye discharge : No dysuria or hematuria CARDIAC: As per HPI MUSCULOSKELETAL : No Aches or pains in the joints or muscles. GI: No abdominal pain, Nausea or vomiting. No constipation or diarrhea. Past Medical History Past Medical History: Coronary Artery Disease (CAD), Diabetes Mellitus, Hyperlipidemia, Sleep Apnea/CPAP/BIPAP Additional Past Medical History / Comment(s): itp, History of Any Multi-Drug Resistant Organisms: None Reported Past Surgical History: Appendectomy, Coronary Bypass/CABG Additional Past Surgical History / Comment(s): spleenectomy, sinus surgery, jaw surgery Past Psychological History: No Psychological Hx Reported Smoking Status: Never smoker - Past Family History Mother Family Medical History: Congestive Heart Failure (CHF) Father Family Medical History: Myocardial Infarction (DE) Medications and Allergies Home Medications Medication Instructions Recorded Confirmed Type metFORMIN HCL 1,000 mg PO BID 10/11/14 09/06/19 History Calcium Carbonate [Calcium] 600 mg PO DAILY 09/06/19 09/06/19 History Cholecalciferol [Vitamin D3 (25 1,000 unit PO DAILY 09/06/19 09/06/19 History Mcg = 1000 Iu)] Gelatin 650mg 1,300 mg PO DAILY 09/06/19 09/06/19 History Krill Oil 500 mg PO DAILY 09/06/19 09/06/19 History Magnesium 200 mg PO DAILY 09/06/19 09/06/19 History Milk Thistle 150 mg PO DAILY 09/06/19 09/06/19 History [place]-3 Fatty Acids [[place]-3] 1,000 mg PO DAILY 09/06/19 09/06/19 History Ubidecarenone [Co Q-10] 100 mg PO DAILY 09/06/19 09/06/19 History Vitamin B Complex 1 cap PO DAILY 09/06/19 09/06/19 History Allergies Allergy/AdvReac Type Severity Reaction Status Date / Time No Known Allergies Allergy Verified 09/06/19 11:05 Physical Exam Vitals: Vital Signs Temp Pulse Pulse Resp BP BP Pulse Ox 09/06/19 16:00 88 16 110/65 93 L 09/06/19 13:00 79 122/74 95 09/06/19 12:30 79 121/72 93 L 09/06/19 12:00 77 118/68 95 09/06/19 11:30 74 18 129/79 95 09/06/19 10:09 20 09/06/19 09:43 98.3 F 87 20 149/87 93 L 09/06/19 09:06 98.1 F 88 16 138/82 96 Intake and Output 09/06/19 09/06/19 09/06/19 06:59 14:59 22:59 Intake Total 63.623 Balance 63.623 Intake: Intake, IV Titration 63.623 Amount Heparin Sod,Pork in 0.45% 63.623 NaCl 25,000 unit In 0.45 % NaCl 1 250ml.bag @ 9.35 UNITS/KG/HR 9.967 mls/hr IV .Q24H [facility] Rx#: [id number] Other: # Voids 1 Weight 106.594 kg GEN. APPEARANCE: alert, in no apparent distress HEENT : No pallor. No icterus. Pupils equal and round and reactive to light. No thyromegaly. No JVD. RESPIRATORY EXAM: normal lung sounds bilaterally. Absent: respiratory distress, wheezes, rales, rhonchi, stridor CARDIOVASCULAR EXAM: regular rate, normal rhythm, normal heart sounds. Grade 3 systolic murmur. GI/ABDOMINAL EXAM: soft, normal bowel sounds. Nontender. No guarding or rigidity. EXTREMITIES EXAM: No peripheral edema. NEUROLOGICAL EXAM: alert, oriented X3, no focal neurological deficits. PSYCHIATRIC EXAM: normal affect, normal mood SKIN EXAM: warm, dry, intact, normal color. Absent: rash Results CBC & Chem 7: 09/06/19 09:35 09/06/19 09:35 Labs: Abnormal Lab Results - Last 24 Hours (Table) 09/06/19 09/06/19 09/06/19 Range/Units 09:35 09:35 09:35 WBC 11.9 H (3.8-10.6) k/uL APTT (22.0-30.0) sec Glucose 173 H (74-99) mg/dL POC Glucose (mg/dL) (75-99) mg/dL Troponin I 0.047 H* (0.000-0.034) ng/mL 09/06/19 09/06/19 09/06/19 Range/Units 13:37 16:37 17:03 WBC (3.8-10.6) k/uL APTT 21.6 L (22.0-30.0) sec Glucose (74-99) mg/dL POC Glucose (mg/dL) 114 H 133 H (75-99) mg/dL Troponin I (0.000-0.034) ng/mL Thrombosis Risk Factor Assmnt - Choose All That Apply Any of the Below Risk Factors Present?: No Assessment and Plan Assessment: ASSESSMENT Syncope-possible cardiac origin Non-ST elevation [place] Severe aortic stenosis Coronary artery disease status post CABG Type 2 diabetes mellitus Hypertension Hyperlipidemia Obstructive sleep apnea on CPAP PLAN: Patient has been started on heparin drip. Will continue to follow on serial troponins. Echocardiogram has been ordered by cardiology. Further recommendations to follow depending on the progress of the patient.
[2019-09-06 20:02] LABS: Glucose,Whole Blood 148 mg/dL (75-99)
[2019-09-06] MEDS: ACETAMINOPHEN TAB 325 MG TAB PO PRN (23:03)
[2019-09-07 05:27] LABS: Basophils # (A) 0.3 k/uL (0-0.2); Basophils % (A) 3 %; Eosinophils # (A) 0.9 k/uL (0-0.7); Eosinophils % (A) 7 %; HCT 45.2 % (39.0-53.0); HGB 14.3 gm/dL (13.0-17.5); Lymphocytes # (A) 4.1 k/uL (1.0-4.8); Lymphocytes % (A) 34 %; MCHC 31.7 g/dL (31.0-37.0); MCV 97.9 fL (80.0-100.0); Monocytes # (A) 0.7 k/uL (0-1.0); Monocytes % (A) 6 %; Neutrophils # (A) 5.6 k/uL (1.3-7.7); Neutrophils % (A) 47 %; Platelet Count 353 k/uL (150-450); RBC 4.61 m/uL (4.30-5.90); RDW 12.9 % (11.5-15.5); WBC 11.9 k/uL (3.8-10.6)
[2019-09-07 05:57] LABS: Potassium 4.5 mmol/L (3.5-5.1)
[2019-09-07 05:58] LABS: African American GFR (CKD) >90 (>60 ml/min/1.73 sqM); Anion Gap 7 mmol/L; Blood Urea Nitrogen 14 mg/dL (9-20); Calcium 8.9 mg/dL (8.4-10.2); Carbon Dioxide 23 mmol/L (22-30); Chloride 108 mmol/L (98-107); Cholesterol 203 mg/dL (<200); Glucose 136 mg/dL (74-99); HDL Cholesterol 74 mg/dL (40-60); LDL Cholesterol,Calculated 103 mg/dL (0-99); Non-African American GFR(CKD) >90 (>60 ml/min/1.73 sqM); Sodium 138 mmol/L (137-145); Triglycerides 131 mg/dL (<150)
[2019-09-07 06:16] LABS: Glucose,Whole Blood 140 mg/dL (75-99)
[2019-09-07] MEDS: ASPIRIN 325 MG TAB PO SCH (08:23)
[2019-09-07] MEDS: HEPARIN SOD,PORK IN 0.45% NACL 25,000 UNIT in 0.45% NACL 1 250ML.BAG IV SCH (08:23)
--- NOTE | 2019-09-07 11:28 | P.PN ---
Subjective Progress Note Date: 09/07/19 History of present illness: This is a 69-year-old gentleman with history of coronary bypass surgery in 2000 with the MARTE graft to the LAD and known aortic stenosis, comes here with complaints of exertional syncopal episodes. Patient claims that when he does any exertional activity like climbing stairs, he feels lightheaded and passed out. He came to the emergency room today with an episode of syncope lasting about 5-10 minutes. His EKGs showed evidence of possible old myocardial infarction. Did not complain of any chest pain or palpitations. His cardiac enzymes showed abnormal troponin value. He claims that four years ago he had a 3-D echocardiogram by a guard chief in [place] who told him that his valve was not significant enough at the time. An echocardiogram done in 2017 in this hospital showed evidence of at least moderate to severe aortic stenosis. The patient was seen and examined this morning sitting up in the chair at bedside. Complaining of some mild nausea. Blood pressure 120/60 with a heart rate of 70, 95% on room air. Orthostatics were obtained, 122/80 lying, 109/70 sitting, 102/70 standing. Heart rate remained unchanged. Echocardiogram with Doppler study has been ordered, this will be performed tomorrow morning. White blood cell count 11.9, hemoglobin 14.3, platelet count 353. Sodium 138, potassium 4.5, BUN 14 and creatinine 0.8. Cholesterol 203, LDL 103, HDL 74, triglycerides 131. Objective - Vital Signs Vital signs: Vital Signs Temp 97.7 F 09/07/19 03:59 Pulse 71 09/07/19 08:00 Resp 16 09/07/19 08:00 BP 120/64 09/07/19 08:00 Pulse Ox 95 09/07/19 08:00 Intake & Output 09/06/19 09/07/19 09/07/19 18:59 06:59 18:59 Intake Total 303.623 186.377 Balance 303.623 186.377 Weight 106.594 kg 107.4 kg Intake: Intake, IV Titration 63.623 186.377 Amount Heparin Sod,Pork in 0.45% 63.623 186.377 NaCl 25,000 unit In 0.45 % NaCl 1 250ml.bag @ 9.35 UNITS/KG/HR 9.967 mls/hr IV .Q24H [facility] Rx#: [id number] Oral 240 Other: Voiding Method Toilet Toilet # Voids 1 1 0 - Exam PHYSICAL EXAMINATION: GENERAL: 69-year-old gentleman in no acute distress at the time of my examination HEENT: Head is atraumatic, normocephalic. Pupils equal, round. Sclera anicteric. Conjunctiva are clear. Mucous membranes of the mouth are moist. Neck is supple. There is no elevated jugular venous pressure. No carotid bruit is heard. HEART EXAMINATION: S1 and S2 1 systolic ejection murmur is heard in the aortic area CHEST EXAMINATION: Lungs are clear to auscultation and precussion. No chest wall tenderness is noted on palpation or with deep breathing. ABDOMEN: Soft, nontender. Bowel sounds are heard. No organomegaly noted. EXTREMITIES: 2+ peripheral pulses with no evidence of peripheral edema and no calf tenderness noted. NEUROLOGIC patient is awake, alert and oriented 3 . . - Labs CBC & Chem 7: 09/07/19 04:37 09/07/19 04:37 Labs: Abnormal Lab Results - Last 24 Hours (Table) 09/06/19 09/06/19 09/06/19 Range/Units 13:37 16:37 17:03 WBC (3.8-10.6) k/uL Eosinophils # (0-0.7) k/uL Basophils # (0-0.2) k/uL APTT 21.6 L (22.0-30.0) sec Chloride (98-107) mmol/L Glucose (74-99) mg/dL POC Glucose (mg/dL) 114 H 133 H (75-99) mg/dL Troponin I (0.000-0.034) ng/mL Cholesterol (<200) mg/dL LDL Cholesterol, Calc (0-99) mg/dL HDL Cholesterol (40-60) mg/dL 09/06/19 09/06/19 09/06/19 Range/Units 17:03 20:00 20:52 WBC (3.8-10.6) k/uL Eosinophils # (0-0.7) k/uL Basophils # (0-0.2) k/uL APTT (22.0-30.0) sec Chloride (98-107) mmol/L Glucose (74-99) mg/dL POC Glucose (mg/dL) 148 H (75-99) mg/dL Troponin I 0.038 H* 0.040 H* (0.000-0.034) ng/mL Cholesterol (<200) mg/dL LDL Cholesterol, Calc (0-99) mg/dL HDL Cholesterol (40-60) mg/dL 09/07/19 09/07/19 09/07/19 Range/Units 00:20 04:37 04:37 WBC 11.9 H (3.8-10.6) k/uL Eosinophils # 0.9 H (0-0.7) k/uL Basophils # 0.3 H (0-0.2) k/uL APTT 46.3 H (22.0-30.0) sec Chloride 108 H (98-107) mmol/L Glucose 136 H (74-99) mg/dL POC Glucose (mg/dL) (75-99) mg/dL Troponin I (0.000-0.034) ng/mL Cholesterol 203 H (<200) mg/dL LDL Cholesterol, Calc 103 H (0-99) mg/dL HDL Cholesterol 74 H (40-60) mg/dL 09/07/19 09/07/19 Range/Units 04:37 06:15 WBC (3.8-10.6) k/uL Eosinophils # (0-0.7) k/uL Basophils # (0-0.2) k/uL APTT 41.2 H (22.0-30.0) sec Chloride (98-107) mmol/L Glucose (74-99) mg/dL POC Glucose (mg/dL) 140 H (75-99) mg/dL Troponin I (0.000-0.034) ng/mL Cholesterol (<200) mg/dL LDL Cholesterol, Calc (0-99) mg/dL HDL Cholesterol (40-60) mg/dL Assessment and Plan Plan: Assessment and plan #1 syncope #2 moderate to severe aortic stenosis #3 abnormal troponins, no significant rise and fall pattern. 0.04, 0.03, 0.04. Plan An echocardiogram with Doppler study will be performed tomorrow morning. We will also request a d-dimer to rule out the possibility of pulmonary embolism. If the echo cardiac gram with Doppler study to show severe aortic stenosis patient then will need to undergo DAMARI with subsequent cardiac catheterization. Further recommendations to follow. DNP note has been reviewed, I agree with a documented findings and plan of care. Patient was seen and examined.
--- NOTE | 2019-09-07 12:13 | P.PN ---
Subjective Progress Note Date: 09/07/19 Principal diagnosis: Syncope Mr. Nelson is a 69-year-old male with a past medical history of coronary artery disease status post CABG, aortic stenosis, type 2 diabetes mellitus, hyperlipidemia, obstructive sleep apnea on CPAP coming to the hospital with a chief complaint of syncope. Patient states for the past 1-2 months he has been having dizziness and feels lightheaded. Yesterday he felt dizzy and passed out for almost 5-10 minutes. Patient denies having any loss of bowel or bladder control. No tongue bites. He denies having any chest pain or palpitations. Patient states that he gets short of breath on taking a flight of stairs in the recent months. Patient has, motor that is consistent with severe aortic stenosis, he states that he has this murmur for a long period of time. Patient denies having any fevers chills or rigors. No cough or difficulty in breathing. No dysuria or hematuria. No alcohol pain nausea vomiting or diarrhea. No weakness of his extremities. No headaches or blurring of vision. No speech abnormalities. In the emergency room patient had a CT of the head that was showing no acute intracranial process. He also had a chest x-ray that is within normal limits and an EKG showing normal sinus rhythm. There is mild elevation of troponins at 0.047. The patient has been admitted for further management. On 09/07/2019 - patient is sitting up in a chair by the bedside comfortably. He states that he has been having headache and feeling nauseous since being on a heparin drip. He did not throw up. He still complains of mild dizziness. He denies having any chest pain. Mild shortness of breath. No cough. He denies having any fevers chills or rigors. No lower extremity swelling. Patient denies having any abdominal pain. Denies noticing any bleeding from any site. Patient's vitals have been stable. No acute events reported by nursing staff. Active Medications Acetaminophen (Tylenol Tab) 650 mg PO Q4HR PRN PRN Reason: Fever and/ or Pain Last Admin: 09/06/19 23:03 Dose: 650 mg Documented by: Aspirin (Aspirin) 325 mg PO DAILY [facility]ASSIMO Last Admin: 09/07/19 08:23 Dose: 325 mg Documented by: Heparin Sodium (Porcine) (Heparin) 0 unit IV PER PROTOCOL PRN; Protocol PRN Reason: Low PTT Last Admin: 09/06/19 18:05 Dose: 4,000 unit Documented by: Heparin Sodium/Sodium Chloride (25,000 unit/ Sodium Chloride) 250 mls @ 9.967 mls/hr IV .Q24H [facility]; Protocol Last Admin: 09/07/19 08:23 Dose: 13 units/kg/hr, 13.857 mls/hr Documented by: Nitroglycerin (Nitrostat) 0.4 mg SUBLINGUAL Q5M PRN PRN Reason: Chest Pain Ondansetron HCl (Zofran) 4 mg IVP Q6HR PRN PRN Reason: Nausea And Vomiting Objective - Vital Signs Vital signs: Vital Signs Temp 97.7 F 09/07/19 03:59 Pulse 71 09/07/19 08:00 Resp 16 09/07/19 08:00 BP 120/64 09/07/19 08:00 Pulse Ox 95 09/07/19 08:00 Intake & Output 09/06/19 09/07/19 09/07/19 18:59 06:59 18:59 Intake Total 303.623 186.377 Balance 303.623 186.377 Weight 106.594 kg 107.4 kg Intake: Intake, IV Titration 63.623 186.377 Amount Heparin Sod,Pork in 0.45% 63.623 186.377 NaCl 25,000 unit In 0.45 % NaCl 1 250ml.bag @ 9.35 UNITS/KG/HR 9.967 mls/hr IV .Q24H [facility] Rx#: [id number] Oral 240 Other: Voiding Method Toilet Toilet # Voids 1 1 0 - Exam GEN. APPEARANCE: alert, in no apparent distress HEENT : No pallor. No icterus. Pupils equal and round and reactive to light. No thyromegaly. No JVD. RESPIRATORY EXAM: normal lung sounds bilaterally. No wheezing or crackles. CARDIOVASCULAR EXAM: regular rate, normal rhythm, normal heart sounds. Grade 3 systolic murmur. GI/ABDOMINAL EXAM: soft, normal bowel sounds. Nontender. No guarding or rigidity. EXTREMITIES EXAM: No peripheral edema. NEUROLOGICAL EXAM: alert, oriented X3, no focal neurological deficits. - Labs CBC & Chem 7: 09/07/19 04:37 09/07/19 04:37 Labs: Abnormal Lab Results - Last 24 Hours (Table) 09/06/19 09/06/19 09/06/19 Range/Units 13:37 16:37 17:03 WBC (3.8-10.6) k/uL Eosinophils # (0-0.7) k/uL Basophils # (0-0.2) k/uL APTT 21.6 L (22.0-30.0) sec Chloride (98-107) mmol/L Glucose (74-99) mg/dL POC Glucose (mg/dL) 114 H 133 H (75-99) mg/dL Troponin I (0.000-0.034) ng/mL Cholesterol (<200) mg/dL LDL Cholesterol, Calc (0-99) mg/dL HDL Cholesterol (40-60) mg/dL 09/06/19 09/06/19 09/06/19 Range/Units 17:03 20:00 20:52 WBC (3.8-10.6) k/uL Eosinophils # (0-0.7) k/uL Basophils # (0-0.2) k/uL APTT (22.0-30.0) sec Chloride (98-107) mmol/L Glucose (74-99) mg/dL POC Glucose (mg/dL) 148 H (75-99) mg/dL Troponin I 0.038 H* 0.040 H* (0.000-0.034) ng/mL Cholesterol (<200) mg/dL LDL Cholesterol, Calc (0-99) mg/dL HDL Cholesterol (40-60) mg/dL 09/07/19 09/07/19 09/07/19 Range/Units 00:20 04:37 04:37 WBC 11.9 H (3.8-10.6) k/uL Eosinophils # 0.9 H (0-0.7) k/uL Basophils # 0.3 H (0-0.2) k/uL APTT 46.3 H (22.0-30.0) sec Chloride 108 H (98-107) mmol/L Glucose 136 H (74-99) mg/dL POC Glucose (mg/dL) (75-99) mg/dL Troponin I (0.000-0.034) ng/mL Cholesterol 203 H (<200) mg/dL LDL Cholesterol, Calc 103 H (0-99) mg/dL HDL Cholesterol 74 H (40-60) mg/dL 09/07/19 09/07/19 Range/Units 04:37 06:15 WBC (3.8-10.6) k/uL Eosinophils # (0-0.7) k/uL Basophils # (0-0.2) k/uL APTT 41.2 H (22.0-30.0) sec Chloride (98-107) mmol/L Glucose (74-99) mg/dL POC Glucose (mg/dL) 140 H (75-99) mg/dL Troponin I (0.000-0.034) ng/mL Cholesterol (<200) mg/dL LDL Cholesterol, Calc (0-99) mg/dL HDL Cholesterol (40-60) mg/dL Assessment and Plan Assessment: ASSESSMENT Syncope-possible cardiac origin Non-ST elevation [place] Severe aortic stenosis Coronary artery disease status post CABG Type 2 diabetes mellitus Hypertension Hyperlipidemia Obstructive sleep apnea on CPAP PLAN: Patient is being continued on a heparin drip. Serial troponins are 0.04, 0.03 and 0.04. Echocardiogram has been ordered by cardiology and still pending. Further recommendations to follow depending on the progress of the patient. The treatment plan was discussed in detail with the patient and his at bedside today.
[2019-09-07 12:22] LABS: Glucose,Whole Blood 194 mg/dL (75-99)
[2019-09-07] MEDS: ACETAMINOPHEN TAB 325 MG TAB PO PRN ×2 (13:23→23:24)
[2019-09-07] MEDS: ONDANSETRON 4 MG/2 ML VIAL IVP PRN (13:24)
[2019-09-07 17:10] LABS: Glucose,Whole Blood 112 mg/dL (75-99)
[2019-09-07 20:26] LABS: Glucose,Whole Blood 142 mg/dL (75-99)
[2019-09-08] MEDS: ONDANSETRON 4 MG/2 ML VIAL IVP PRN (04:50)
[2019-09-08] MEDS: ACETAMINOPHEN TAB 325 MG TAB PO PRN ×2 (04:53→19:48)
[2019-09-08 05:10] LABS: Basophils # (A) 0.2 k/uL (0-0.2); Basophils % (A) 1 %; Eosinophils # (A) 0.8 k/uL (0-0.7); Eosinophils % (A) 6 %; HGB 15.4 gm/dL (13.0-17.5); Lymphocytes # (A) 4.8 k/uL (1.0-4.8); Lymphocytes % (A) 40 %; MCH 31.2 pg (25.0-35.0); MCHC 32.7 g/dL (31.0-37.0); MCV 95.6 fL (80.0-100.0); Mean Platelet Volume 8.2; Monocytes # (A) 0.8 k/uL (0-1.0); Monocytes % (A) 6 %; Neutrophils # (A) 5.4 k/uL (1.3-7.7); Neutrophils % (A) 44 %; Platelet Count 247 k/uL (150-450); RBC 4.92 m/uL (4.30-5.90); RDW 12.8 % (11.5-15.5); WBC 12.1 k/uL (3.8-10.6)
[2019-09-08 05:29] LABS: African American GFR (CKD) >90 (>60 ml/min/1.73 sqM); Anion Gap 7 mmol/L; Blood Urea Nitrogen 15 mg/dL (9-20); Calcium 9.2 mg/dL (8.4-10.2); Carbon Dioxide 25 mmol/L (22-30); Chloride 106 mmol/L (98-107); Glucose 148 mg/dL (74-99); Non-African American GFR(CKD) 90 (>60 ml/min/1.73 sqM); Potassium 4.8 mmol/L (3.5-5.1); Sodium 138 mmol/L (137-145)
[2019-09-08 05:40] LABS: Glucose,Whole Blood 187 mg/dL (75-99)
[2019-09-08] MEDS: ASPIRIN 325 MG TAB PO SCH (09:54)
[2019-09-08] MEDS: HEPARIN SOD,PORK IN 0.45% NACL 25,000 UNIT in 0.45% NACL 1 250ML.BAG IV SCH (10:15)
--- NOTE | 2019-09-08 10:15 | P.PN ---
Subjective Progress Note Date: 09/08/19 Principal diagnosis: Aortic stenosis This is a 69-year-old gentleman with history of aortic stenosis was admitted to the hospital with a witnessed syncope. Beside that he has been experiencing shortness of breath with even minimal exertion. On follow-up with him today, he continues to have shortness of breath but no chest pain or chest discomfort. On examination he does have very significant right upper sternal border murmur was very diminished in the intensity of S2. The stenosis clinically at least in the moderate to severe range. An echocardiogram was performed and will follow-up with that. If the echo shows severe S 80 to have a DAMARI and heart catheterization Objective - Vital Signs Vital signs: Vital Signs Temp 97.6 F 09/08/19 04:00 Pulse 67 09/08/19 04:00 Resp 17 09/08/19 04:00 BP 138/77 09/08/19 04:00 Pulse Ox 96 09/08/19 04:00 Intake & Output 09/07/19 09/08/19 09/08/19 18:59 06:59 18:59 Intake Total 765.385 336.588 446.404 Output Total 1000 500 Balance -234.615 -163.412 446.404 Weight 107.9 kg Intake: Intake, IV Titration 295.385 114.588 26.404 Amount Heparin Sod,Pork in 0.45% 295.385 114.588 26.404 NaCl 25,000 unit In 0.45 % NaCl 1 250ml.bag @ 9.35 UNITS/KG/HR 9.967 mls/hr IV .Q24H [facility] Rx#: [id number] Oral 470 222 420 Output: Urine 1000 500 Other: Voiding Method Toilet Toilet # Voids 0 1 1 - Constitutional General appearance: Present: no acute distress - Respiratory Respiratory: bilateral: CTA - Cardiovascular Rhythm: regular Heart sounds: normal: S1 Abnormal Heart Sounds: Present: systolic murmur - Labs CBC & Chem 7: 09/08/19 04:42 09/08/19 04:42 Labs: Abnormal Lab Results - Last 24 Hours (Table) 09/07/19 09/07/19 09/07/19 Range/Units 12:07 17:02 20:24 WBC (3.8-10.6) k/uL Eosinophils # (0-0.7) k/uL APTT (22.0-30.0) sec Glucose (74-99) mg/dL POC Glucose (mg/dL) 194 H 112 H 142 H (75-99) mg/dL 09/07/19 09/08/19 09/08/19 Range/Units 21:25 04:42 04:42 WBC 12.1 H (3.8-10.6) k/uL Eosinophils # 0.8 H (0-0.7) k/uL APTT 41.5 H (22.0-30.0) sec Glucose 148 H (74-99) mg/dL POC Glucose (mg/dL) (75-99) mg/dL 09/08/19 09/08/19 Range/Units 04:42 05:39 WBC (3.8-10.6) k/uL Eosinophils # (0-0.7) k/uL APTT 41.5 H (22.0-30.0) sec Glucose (74-99) mg/dL POC Glucose (mg/dL) 187 H (75-99) mg/dL Assessment and Plan Assessment: Assessment #1 probably severe symptomatic aortic stenosis Plan #1 follow-up on the transthoracic echocardiogram #2 proceed with a DAMARI and cath if the echo showed severe aortic stenosis
[2019-09-08] MEDS ORDERED: ASPIRIN 325 MG TAB PO STA (10:30)
[2019-09-08] MEDS ORDERED: SODIUM CHLORIDE 0.9% 1,000 ML in EMPTY BAG 1 BAG IV ONE (10:30)
[2019-09-08] MEDS ORDERED: ALPRAZolam 0.25 MG TAB PO PRN (10:30)
[2019-09-08] MEDS ORDERED: ALPRAZolam 0.5 MG TAB PO PRN (10:30)
[2019-09-08] MEDS ORDERED: ATORVASTATIN 80 MG TAB PO STA (10:30)
[2019-09-08] MEDS ORDERED: NITROGLYCERIN SL TABS 0.4 MG TAB SUBLINGUAL PRN (10:30)
--- NOTE | 2019-09-08 11:01 | ECHOF ---
Referral Reason:syncope MEASUREMENTS -------- HEIGHT: 170.2 cm WEIGHT: 107.5 kg BP: 138/77 RVIDd: 3.6 cm (< 3.3) IVSd: 1.6 cm (0.6 - 1.1) LVIDd: 5.6 cm (3.9 - 5.3) LVPWd: 1.5 cm (0.6 - 1.1) IVSs: 2.1 cm LVIDs: 4.0 cm LVPWs: 2.5 cm LA Diam: 3.9 cm (2.7 - 3.8) LAESV Index (A-L): 29.60 ml/m Ao Diam: 3.4 cm (2.0 - 3.7) AV Cusp: 1.9 cm (1.5 - 2.6) MV EXCURSION: 14.230 mm (> 18.000) MV EF SLOPE: 48 mm/s (70 - 150) EPSS: 1.6 cm MV E Bradley: 1.35 m/s MV DecT: 260 ms MV A Bradley: 0.96 m/s MV E/A Ratio: 1.41 AV maxP.08 mmHg AV meanP.03 mmHg RAP: 5.00 mmHg RVSP: 26.68 mmHg FINDINGS -------- Sinus rhythm. This was a technically difficult study with suboptimal views. The left ventricular size is normal. There is moderate concentric left ventricular hypertrophy. O verall left ventricular systolic function is low-normal with, an EF between 50 - 55 %. The right ventricle is mildly enlarged. LA is midly dilated 29-33ml/m2. The right atrium is normal in size. xx ml of Lumason was utilized for enhancement of images. Interatrial and interventricular septum intact. There is moderate to severe aortic valve sclerosis. There is severe aortic stenosis present. Peak /mean gradient across the Aortic Valve is 68.08mmHg / 47.03mmHg. The mitral valve leaflets are mildly thickened. Mild mitral annular calcification present. [id number] tricuspid regurgitation present. Right ventricular systolic pressure is normal at < 35 mmHg. The pulmonic valve was not well visualized. The aortic root size is normal. Normal inferior vena cava with normal inspiratory collapse consistent with estimated right atrial pre ssure of 5 mmHg. There is no pericardial effusion. CONCLUSIONS -------- 1. Sinus rhythm. 2. This was a technically difficult study with suboptimal views. 3. The left ventricular size is normal. 4. There is moderate concentric left ventricular hypertrophy. 5. The right ventricle is mildly enlarged. 6. LA is midly dilated 29-33ml/m2. 7. The right atrium is normal in size. 8. xx ml of Lumason was utilized for enhancement of images. 9. Interatrial and interventricular septum intact. 10. There is moderate to severe aortic valve sclerosis. 11. There is severe aortic stenosis present. 12. Peak/mean gradient across the Aortic Valve is 68.08mmHg / 47.03mmHg. 13. The mitral valve leaflets are mildly thickened. 14. Mild mitral annular calcification present. 15. Pgls-ry-sciqzfzj tricuspid regurgitation present. 16. Right ventricular systolic pressure is normal at < 35 mmHg. 17. The pulmonic valve was not well visualized. 18. The aortic root size is normal. 19. Normal inferior vena cava with normal inspiratory collapse consistent with estimated right atrial pressure of 5 mmHg. 20. There is no pericardial effusion. FEATHER EDGER: Reanna Becker RDCS
--- NOTE | 2019-09-08 12:10 | P.PN ---
Subjective Progress Note Date: 09/08/19 Principal diagnosis: Syncope, Severe aortic stenosis Mr. Nelson is a 69-year-old male with a past medical history of coronary artery disease status post CABG, aortic stenosis, type 2 diabetes mellitus, hyperlipidemia, obstructive sleep apnea on CPAP coming to the hospital with a chief complaint of syncope. Patient states for the past 1-2 months he has been having dizziness and feels lightheaded. Yesterday he felt dizzy and passed out for almost 5-10 minutes. Patient denies having any loss of bowel or bladder control. No tongue bites. He denies having any chest pain or palpitations. Patient states that he gets short of breath on taking a flight of stairs in the recent months. Patient has, motor that is consistent with severe aortic stenosis, he states that he has this murmur for a long period of time. Patient denies having any fevers chills or rigors. No cough or difficulty in breathing. No dysuria or hematuria. No alcohol pain nausea vomiting or diarrhea. No weakness of his extremities. No headaches or blurring of vision. No speech abnormalities. In the emergency room patient had a CT of the head that was showing no acute intracranial process. He also had a chest x-ray that is within normal limits and an EKG showing normal sinus rhythm. There is mild elevation of troponins at 0.047. The patient has been admitted for further management. On 09/08/2019 - patient is sitting up in a chair by the bedside comfortably. He had an episode of dizziness this morning when he tried to get from the room to his bathroom. He did not have a fall. His headaches are much better. He denies having any chest pain. Mild shortness of breath. No cough. He denies having any fevers chills or rigors. No lower extremity swelling. Patient denies having any abdominal pain. Denies noticing any bleeding from any site. Patient's vitals have been stable. No acute events reported by nursing staff. Patient had an echocardiogram done this morning showing severe aortic stenosis. Active Medications Acetaminophen (Tylenol Tab) 650 mg PO Q4HR PRN PRN Reason: Fever and/ or Pain Last Admin: 09/08/19 04:53 Dose: 650 mg Documented by: Alprazolam (Xanax) 0.25 mg PO Q6HR PRN PRN Reason: Mild Anxiety Alprazolam (Xanax) 0.5 mg PO Q6HR PRN PRN Reason: Moderate Anxiety Aspirin (Aspirin) 325 mg PO DAILY [facility] Last Admin: 09/08/19 09:54 Dose: 325 mg Documented by: Heparin Sodium (Porcine) (Heparin) 0 unit IV PER PROTOCOL PRN; Protocol PRN Reason: Low PTT Last Admin: 09/06/19 18:05 Dose: 4,000 unit Documented by: Heparin Sodium/Sodium Chloride (25,000 unit/ Sodium Chloride) 250 mls @ 9.967 mls/hr IV .Q24H [facility]; Protocol Last Admin: 09/08/19 10:15 Dose: 19 units/kg/hr, 20.253 mls/hr Documented by: Sodium Chloride 1,000 ml/ IV (Solution) 1,000 mls @ 107.9 mls/hr IV .Q9H17M ONE Stop: 09/08/19 19:46 Nitroglycerin (Nitrostat) 0.4 mg SUBLINGUAL Q5M PRN PRN Reason: Chest Pain Nitroglycerin (Nitrostat) 0.4 mg SUBLINGUAL Q5M PRN PRN Reason: Chest Pain Ondansetron HCl (Zofran) 4 mg IVP Q6HR PRN PRN Reason: Nausea And Vomiting Last Admin: 09/08/19 04:50 Dose: 4 mg Documented by: Objective - Vital Signs Vital signs: Vital Signs Temp 97.8 F 09/08/19 08:00 Pulse 78 09/08/19 08:00 Resp 18 09/08/19 08:00 BP 100/59 09/08/19 08:00 Pulse Ox 94 L 09/08/19 08:00 Intake & Output 09/07/19 09/08/19 09/08/19 18:59 06:59 18:59 Intake Total 765.385 336.588 446.404 Output Total 1000 500 Balance -234.615 -163.412 446.404 Weight 107.9 kg Intake: Intake, IV Titration 295.385 114.588 26.404 Amount Heparin Sod,Pork in 0.45% 295.385 114.588 26.404 NaCl 25,000 unit In 0.45 % NaCl 1 250ml.bag @ 9.35 UNITS/KG/HR 9.967 mls/hr IV .Q24H [facility] Rx#: [id number] Oral 470 222 420 Output: Urine 1000 500 Other: Voiding Method Toilet Toilet # Voids 0 1 1 - Exam GEN. APPEARANCE: alert, in no apparent distress HEENT : No pallor. No icterus. Pupils equal and round and reactive to light. No thyromegaly. No JVD. RESPIRATORY EXAM: normal lung sounds bilaterally. No wheezing or crackles. CARDIOVASCULAR EXAM: regular rate, normal rhythm, normal heart sounds. Grade 3 systolic murmur, loudest at aortic area. GI/ABDOMINAL EXAM: soft, normal bowel sounds. Nontender. No guarding or rigidity. EXTREMITIES EXAM: No peripheral edema. NEUROLOGICAL EXAM: alert, oriented X3, no focal deficits. - Labs CBC & Chem 7: 09/08/19 04:42 09/08/19 04:42 Labs: Abnormal Lab Results - Last 24 Hours (Table) 09/07/19 09/07/19 09/07/19 Range/Units 12:07 17:02 20:24 WBC (3.8-10.6) k/uL Eosinophils # (0-0.7) k/uL APTT (22.0-30.0) sec Glucose (74-99) mg/dL POC Glucose (mg/dL) 194 H 112 H 142 H (75-99) mg/dL 09/07/19 09/08/19 09/08/19 Range/Units 21:25 04:42 04:42 WBC 12.1 H (3.8-10.6) k/uL Eosinophils # 0.8 H (0-0.7) k/uL APTT 41.5 H (22.0-30.0) sec Glucose 148 H (74-99) mg/dL POC Glucose (mg/dL) (75-99) mg/dL 09/08/19 09/08/19 Range/Units 04:42 05:39 WBC (3.8-10.6) k/uL Eosinophils # (0-0.7) k/uL APTT 41.5 H (22.0-30.0) sec Glucose (74-99) mg/dL POC Glucose (mg/dL) 187 H (75-99) mg/dL Assessment and Plan Assessment: ASSESSMENT Syncope-possible cardiac origin Non-ST elevation RI Severe aortic stenosis Coronary artery disease status post CABG Type 2 diabetes mellitus Hypertension Hyperlipidemia Obstructive sleep apnea on CPAP PLAN: Patient is being continued on a heparin drip. Serial troponins are 0.04, 0.03 and 0.04. Patient had an echocardiogram done this morning showing severe aortic stenosis. So the patient is scheduled for a DAMARI and cardiac cath tomorrow morning. Patient will be kept nothing by mouth tonight. Continue with the rest of his current medication regimen. Further recommendations to follow depending on the progress of the patient. The treatment plan was discussed in detail with the patient at bedside today.
[2019-09-08 12:11] LABS: Glucose,Whole Blood 116 mg/dL (75-99)
[2019-09-08 16:58] LABS: Glucose,Whole Blood 118 mg/dL (75-99)
[2019-09-08 20:55] LABS: Glucose,Whole Blood 122 mg/dL (75-99)
[2019-09-09] MEDS: ACETAMINOPHEN TAB 325 MG TAB PO PRN (03:34)
[2019-09-09 06:20] LABS: Glucose,Whole Blood 141 mg/dL (75-99)
[2019-09-09 06:26] LABS: Basophils # (A) 0.2 k/uL (0-0.2); Basophils % (A) 2 %; Eosinophils # (A) 0.6 k/uL (0-0.7); Eosinophils % (A) 6 %; HCT 46.1 % (39.0-53.0); HGB 15.3 gm/dL (13.0-17.5); Lymphocytes # (A) 3.3 k/uL (1.0-4.8); Lymphocytes % (A) 28 %; MCH 31.5 pg (25.0-35.0); MCHC 33.3 g/dL (31.0-37.0); MCV 94.7 fL (80.0-100.0); Mean Platelet Volume 9.2; Monocytes # (A) 0.9 k/uL (0-1.0); Monocytes % (A) 8 %; Neutrophils # (A) 6.4 k/uL (1.3-7.7); Neutrophils % (A) 55 %; Platelet Count 227 k/uL (150-450); RBC 4.87 m/uL (4.30-5.90); RDW 12.7 % (11.5-15.5); WBC 11.7 k/uL (3.8-10.6)
--- NOTE | 2019-09-09 10:53 | P.PN ---
Subjective Progress Note Date: 09/09/19 Principal diagnosis: Aortic stenosis This is a 69-year-old gentleman with history of aortic stenosis was admitted to the hospital with a witnessed syncope. Beside that he has been experiencing shortness of breath with even minimal exertion. The patient was seen today, September 092018, he continues to be symptomatic [employer] shortness of breath. The echo revealed normal LV function was evidence of moderate aortic stenosis. He is going to undergo today a DAMARI and heart catheterization for further clarification. If that revealed severe as the patient will need to have aortic valve replacement. Objective - Vital Signs Vital signs: Vital Signs Temp 98 F 09/09/19 03:35 Pulse 85 09/09/19 03:35 Resp 18 09/09/19 03:35 BP 136/71 09/09/19 03:35 Pulse Ox 98 09/09/19 03:35 Intake & Output 09/08/19 09/09/19 09/09/19 18:59 06:59 18:59 Intake Total 446.404 191.391 Balance 446.404 191.391 Weight 107.2 kg Intake: Intake, IV Titration 26.404 191.391 Amount Heparin Sod,Pork in 0.45% 26.404 191.391 NaCl 25,000 unit In 0.45 % NaCl 1 250ml.bag @ 9.35 UNITS/KG/HR 9.967 mls/hr IV .Q24H [facility] Rx#: [id number] Oral 420 Other: # Voids 1 1 - Constitutional General appearance: Present: no acute distress - Respiratory Respiratory: bilateral: CTA - Cardiovascular Rhythm: regular Heart sounds: normal: S1, S2 Abnormal Heart Sounds: Present: systolic murmur - Labs CBC & Chem 7: 09/09/19 05:37 09/08/19 04:42 Labs: Abnormal Lab Results - Last 24 Hours (Table) 09/08/19 09/08/19 09/08/19 Range/Units 11:59 16:52 17:55 WBC (3.8-10.6) k/uL APTT 53.9 H (22.0-30.0) sec POC Glucose (mg/dL) 116 H 118 H (75-99) mg/dL 09/08/19 09/09/19 09/09/19 Range/Units 20:45 05:37 05:37 WBC 11.7 H (3.8-10.6) k/uL APTT 64.7 H (22.0-30.0) sec POC Glucose (mg/dL) 122 H (75-99) mg/dL 09/09/19 Range/Units 06:19 WBC (3.8-10.6) k/uL APTT (22.0-30.0) sec POC Glucose (mg/dL) 141 H (75-99) mg/dL Assessment and Plan Assessment: Assessment #1 syncope #2 severe aortic stenosis Plan #1 continue current medical regimen #2 proceed with a DAMARI and heart catheterization
--- NOTE | 2019-09-09 11:10 | P.PN ---
Subjective 69-year-old male with a past medical history of coronary artery disease status post CABG, aortic stenosis, type 2 diabetes mellitus, hyperlipidemia, obstructive sleep apnea on CPAP coming to the hospital with a chief complaint of syncope. Patient states for the past 1-2 months he has been having dizziness and feels lightheaded. Yesterday he felt dizzy and passed out for almost 5-10 minutes. Patient denies having any loss of bowel or bladder control. No tongue bites. He denies having any chest pain or palpitations. Patient states that he gets short of breath on taking a flight of stairs in the recent months. Patient has, motor that is consistent with severe aortic stenosis, he states that he has this murmur for a long period of time. Patient denies having any fevers chills or rigors. No cough or difficulty in breathing. No dysuria or hematuria. No alcohol pain nausea vomiting or diarrhea. No weakness of his extremities. No headaches or blurring of vision. No speech abnormalities. In the emergency room patient had a CT of the head that was showing no acute intracranial process. He also had a chest x-ray that is within normal limits and an EKG showing normal sinus rhythm. There is mild elevation of troponins at 0.047. The patient has been admitted for further management. On 09/08/2019 - patient is sitting up in a chair by the bedside comfortably. He had an episode of dizziness this morning when he tried to get from the room to his bathroom. He did not have a fall. His headaches are much better. He denie s having any chest pain. Mild shortness of breath. No cough. He denies having any fevers chills or rigors. No lower extremity swelling. Patient denies having any abdominal pain. Denies noticing any bleeding from any site. Patient's vitals have been stable. No acute events reported by nursing staff. Patient had an echocardiogram done this morning showing severe aortic stenosis. 09/09/2019 Patient will undergo cardiac catheterization and DAMARI today. Further management and plan depending on the DAMARI results of recent cardiac catheterization findings. Patient is complaining of mild lightheadedness no other significant symptoms at this time Constitutional: Denied any fatigue denied any fever. Cardio vascular: denied any chest pain, palpitations Gastrointestinal denied any nausea vomiting Pulmonary: Denied any shortness of breath cough Neurologic denied any new focal deficits All inpatient medications were reviewed and appropriate changes in these medications as dictated in the interval history and assessment and plan. Objective - Vital Signs Vital signs: Vital Signs Temp 98 F 09/09/19 03:35 Pulse 85 09/09/19 03:35 Resp 18 09/09/19 03:35 BP 136/71 09/09/19 03:35 Pulse Ox 98 09/09/19 03:35 Intake & Output 09/08/19 09/09/19 09/09/19 18:59 06:59 18:59 Intake Total 446.404 191.391 Balance 446.404 191.391 Weight 107.2 kg Intake: Intake, IV Titration 26.404 191.391 Amount Heparin Sod,Pork in 0.45% 26.404 191.391 NaCl 25,000 unit In 0.45 % NaCl 1 250ml.bag @ 9.35 UNITS/KG/HR 9.967 mls/hr IV .Q24H [facility] Rx#: [id number] Oral 420 Other: # Voids 1 1 - Exam PHYSICAL EXAMINATION: GENERAL: The patient is alert and oriented x3, not in any acute distress. Well developed, well nourished. HEENT: Pupils are round and equally reacting to light. EOMI. No scleral icterus. No conjunctival pallor. Normocephalic, atraumatic. No pharyngeal erythema. No thyromegaly. CARDIOVASCULAR: S1 and S2 present. No rubs, or gallops. systolic murmur and aortic area PULMONARY: Chest is clear to auscultation, no wheezing or crackles. ABDOMEN: Soft, nontender, nondistended, normoactive bowel sounds. No palpable organomegaly. MUSCULOSKELETAL: No joint swelling or deformity. EXTREMITIES: No cyanosis, clubbing, or pedal edema. NEUROLOGICAL: Gross neurological examination did not reveal any focal deficits. SKIN: No rashes. - Labs CBC & Chem 7: 09/09/19 05:37 09/08/19 04:42 Labs: Abnormal Lab Results - Last 24 Hours (Table) 09/08/19 09/08/19 09/08/19 Range/Units 11:59 16:52 17:55 WBC (3.8-10.6) k/uL APTT 53.9 H (22.0-30.0) sec POC Glucose (mg/dL) 116 H 118 H (75-99) mg/dL 09/08/19 09/09/19 09/09/19 Range/Units 20:45 05:37 05:37 WBC 11.7 H (3.8-10.6) k/uL APTT 64.7 H (22.0-30.0) sec POC Glucose (mg/dL) 122 H (75-99) mg/dL 09/09/19 Range/Units 06:19 WBC (3.8-10.6) k/uL APTT (22.0-30.0) sec POC Glucose (mg/dL) 141 H (75-99) mg/dL Assessment and Plan Plan: -syncope possibly secondary to aortic stenosis, cardiac catheterization and transesophageal echocardiogram as mentioned above -Possibly of non-ST elevation microinfarction for which patient will undergo cardiac catheterization -Coronary artery disease with previous CABG -Type 2 diabetes mellitus -Hypertension -Hyperlipidemia -Obstructive sleep apnea on CPAP machine. Jarod is to continue present medications headache with radiation followed by DAMARI .patient's syncope is most probably from aortic stenosis
[2019-09-09 11:52] LABS: Glucose,Whole Blood 127 mg/dL (75-99)
[2019-09-09] MEDS: ASPIRIN 325 MG TAB PO SCH (12:44)
[2019-09-09] MEDS: ONDANSETRON 4 MG/2 ML VIAL IVP PRN (13:16)
[2019-09-09] MEDS: HEPARIN SOD,PORK IN 0.45% NACL 25,000 UNIT in 0.45% NACL 1 250ML.BAG IV SCH (13:22)
[2019-09-09] MEDS ORDERED: IV FLUID CONTINUATION 950 ML IV ONE (13:25)
[2019-09-09] MEDS: BENZOCAINE SPRAY 1 CAN MUCOUS MEM ONE ×2 (13:40→13:57)
[2019-09-09] MEDS ORDERED: MIDAZOLAM 2 MG/2 ML VIAL IV ONE (13:58)
[2019-09-09] MEDS ORDERED: fentaNYL (PF) 50 MCG/ML 2 ML AMP IV ONE (13:58)
[2019-09-09] MEDS ORDERED: IV FLUID CONTINUATION 1,000 ML IV ONE (14:20)
[2019-09-09] MEDS ORDERED: LIDOCAINE 1% INJ 10MG/ML (20 ML MDV) ONE ×2 (14:22→14:32)
[2019-09-09] MEDS ORDERED: LIDOCAINE 1% INJ 10MG/ML (20 ML MDV) SQ ONE (14:29)
[2019-09-09] MEDS ORDERED: HYDROmorphone 1 MG/ML 1 ML SYRINGE ONE (14:33)
[2019-09-09] MEDS ORDERED: HYDROmorphone 1 MG/ML 1 ML SYRINGE IVP ONE (14:35)
--- NOTE | 2019-09-09 14:42 | ECHOT ---
TRANSESOPHAGEAL ECHOCARDIOGRAM DATE OF SERVICE: 09/09/2019 PERFORMING PHYSICIAN: Chaitanya Post MD. PROCEDURE PERFORMED: Transesophageal echocardiogram. INDICATION: Aortic stenosis. COMPLICATION: None. LEVEL OF SEDATION: Moderate with sedation length of 15 minutes. PROCEDURE DESCRIPTION: After obtaining an informed consent, the patient was brought to the transesophageal echocardiogram suite. A pulse oximetry and heart rate monitors were attached to the patient. The patient was turned into left lateral position. A bite guard was placed after the throat was sprayed using lidocaine. Subsequently the transesophageal echocardiogram probe was advanced through the mid esophagus through the bite guard to the mid esophagus where 2D echocardiogram images as well as color Doppler images as well as pulse and continuous-wave Doppler images were obtained. Subsequently, the probe was advanced to the stomach where we obtained trans casing transgastric view including aortic valve gradient. After that, the procedure was completed without any complication. FINDINGS: The left ventricular dimension and systolic function appeared to be within normal limits. The ejection fraction appeared to be in the range of 55%. The right ventricle appeared to be mildly dilated. The left atrium and right atrium appeared to be mildly dilated. The interatrial septum appeared to be intact. The left atrial appendage appeared to be free from any thrombus. The aortic valve is trileaflet valve with evidence of aortic sclerosis by gradient with a mean gradient of 44 and peak of 64 mmHg. The mitral valve was mildly thickened with mild MR. There was mild tricuspid regurgitation and mild pulmonic insufficiency seen. No evidence of pericardial effusion seen. CONCLUSION: 1. Intact interatrial septum without any evidence of shunt. 2. Normal left atrial appendage without any evidence of thrombus. 3. Mild biatrial enlargement. 4. Normal left ventricular dimension and systolic function. 5. Trileaflet aortic sclerosis with severe stenosis with evidence of peak gradient of 64 and mean of 44 mmHg. 6. Thickened mitral valve leaflets with mild MR. 7. Mild to moderate tricuspid regurgitation. 8. Normal aortic root dimension. 9. No evidence of pericardial effusion. MMODL / IJN: [id number] /
[2019-09-09] MEDS ORDERED: IOPAMIDOL-370 100ML BTL INJ ONE ×2 (14:45→14:46)
[2019-09-09] MEDS ORDERED: RX INFO: IV CONTRAST WAS GIVEN 1 EACH MISC MISCELLANE PRN (14:50)
[2019-09-09] MEDS ORDERED: SODIUM CHLORIDE 0.9% 1,000 ML IV SCH (15:00)
[2019-09-09 16:58] LABS: Glucose,Whole Blood 129 mg/dL (75-99)
--- NOTE | 2019-09-09 17:06 | P.GSCN ---
History of Present Illness Consult date: 09/09/19 Reason for Consult: Severe aortic stenosis and triple-vessel coronary artery disease. Requesting physician: Chaitanya Post History of present illness: This is 69-year-old gentleman who follows with Dr. Enrrique Mayorga on an outpatient basis. He has a past medical history significant for coronary artery disease, status post coronary artery bypass grafting surgery in 1999 with his left internal mammary artery to left anterior descending coronary artery, known aortic valve stenosis, history of platelet disorder status post splenectomy, diabetes mellitus type 2, hyperlipidemia and a remote history of nicotine dependence which he quit smoking over 25 years ago. On 09/06/2019, the patient presented to the emergency department here at [facility] with complaints of episodes of chest tightness, lightheadedness, syncope, nausea, vomiting and loss of bowel function. He denies any recent fevers, chills, palpitations, or swelling to his lower extremities. The patient reports that he has known aortic valve disease and has recently been having episodes of lightheadedness since March 2019. Since June the patient also reports that he has had 3-4 syncopal episodes with loss of bowel function during these episodes. On 09/06/2019, he was walking out of his house and walk down 4 stairs when he started to have an episode of lightheadedness, he decided to go back and the host due to the lightheadedness and upon entering the house he reports that he passed out. He felt after this episode a feeling of impending doom. A 12-lead EKG was completed which showed evidence of possible old myocardial infarction. Serial troponins were completed and were as high as 0.047. His WBC count on admission was 11.9, hemoglobin 15.7, platelets 257, BUN 15, and creatinine 0.91. A chest x-ray was completed which showed no acute cardiopulmonary process although did demonstrate cardiomegaly. A 2-D echocardiogram was completed which demonstrated moderate concentric left ventricular hypertrophy, moderate to severe aortic valve sclerosis, severe aortic valve stenosis, a peak gradient across the aortic valve of 68.08 mmHg and a mean gradient of 47.03 mmHg, mild to moderate tricuspid valve regurgitation and an overall left ventricular systolic function to be low normal with an ejection fraction between 50 and 55%. Cardiology was consulted and recommendations were made for a transesophageal echocardiogram and cardiac catheterization. The cardiac catheterization demonstrated a 60% stenosis to his left main coronary artery, 90% stenosis to his right coronary artery, a 70% stenosis to his circumflex coronary artery, and 100% stenosis to his proximal left anterior descending coronary artery. The transesophageal echocardiogram results demonstrated a trileaflet aortic valve with severe aortic valve stenosis with evidence of a peak gradient of 64 mmHg and a mean gradient of 44 mmHg, mild to moderate tricuspid valve regurgitation and an ejection fraction in the range of 55%. Due to the patient's presenting symptoms, known history of aortic valve stenosis, cardiac catheterization and DAMARI findings a consult was placed to Dr. Barry Vela from cardiothoracic surgery for further evaluation and treatment recommendations. Review of Systems A 14 point review of systems was completed and was negative except as mentioned in HPI. 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 History of Any Multi-Drug Resistant Organisms: None Reported Past Surgical History: Appendectomy, Coronary Bypass/CABG Additional Past Surgical History / Comment(s): spleenectomy, sinus surgery, jaw surgery Past Anesthesia/Blood Transfusion Reactions: No Reported Reaction Past Psychological History: No Psychological Hx Reported Smoking Status: Former smoker Past Alcohol Use History: None Reported Past Drug Use History: None Reported - Past Family History Mother Family Medical History: Congestive Heart Failure (CHF) Father Family Medical History: Myocardial Infarction ([place]) Sister(s) Family Medical History: Coronary Artery Disease (CAD) Additional Family Medical History / Comment(s): Status post coronary artery bypass grafting surgery. Medications and Allergies Home Medications Medication Instructions Recorded Confirmed Type metFORMIN HCL 1,000 mg PO BID 10/11/14 09/06/19 History Calcium Carbonate [Calcium] 600 mg PO DAILY 09/06/19 09/06/19 History Cholecalciferol [Vitamin D3 (25 1,000 unit PO DAILY 09/06/19 09/06/19 History Mcg = 1000 Iu)] Gelatin 650mg 1,300 mg PO DAILY 09/06/19 09/06/19 History Krill Oil 500 mg PO DAILY 09/06/19 09/06/19 History Magnesium 200 mg PO DAILY 09/06/19 09/06/19 History Milk Thistle 150 mg PO DAILY 09/06/19 09/06/19 History [place]-3 Fatty Acids [[place]-3] 1,000 mg PO DAILY 09/06/19 09/06/19 History Ubidecarenone [Co Q-10] 100 mg PO DAILY 09/06/19 09/06/19 History Vitamin B Complex 1 cap PO DAILY 09/06/19 09/06/19 History Allergies Allergy/AdvReac Type Severity Reaction Status Date / Time No Known Allergies Allergy Verified 09/06/19 11:05 Surgical - Exam Vital Signs Temp Pulse Resp BP Pulse Ox 98.1 F 88 16 138/82 96 09/06/19 09:06 09/06/19 09:06 09/06/19 09:06 09/06/19 09:06 09/06/19 09:06 - General well developed, well nourished, no distress, no pain, obese - Eyes PERRL, normal ocular movement - ENT normal pinna, normal nares, normal mucosa, no hearing loss, no congestion - Neck Neck is supple, no lymphadenopathy. no masses, no bruits, trachea midline, no venous distension - Respiratory Lung sounds essentially clear throughout. No wheezes, rhonchi or crackles. Respirations are symmetrical and nonlabored. - Cardiovascular Regular rhythm and rate. S1 and S2 present, loud pansystolic murmur. No edema present. - Abdomen Abdomen is soft, nontender and nondistended. Active bowel sounds present all 4 abdominal quadrants. No organomegaly. - Genitourinary Deferred - Rectum Deferred - Integumentary Dry scab underneath his right eye. no rash, no growths, no abnormal pigmentation - Neurologic normal coordination, normal sensation - Musculoskeletal normal gait, normal posture - Psychiatric oriented to time, oriented to person, oriented to place, speech is normal, memory intact Results - Labs 09/09/19 05:37 09/08/19 04:42 Abnormal Lab Results - Last 24 Hours (Table) 09/08/19 09/08/19 09/08/19 Range/Units 16:52 17:55 20:45 WBC (3.8-10.6) k/uL APTT 53.9 H (22.0-30.0) sec POC Glucose (mg/dL) 118 H 122 H (75-99) mg/dL 09/09/19 09/09/19 09/09/19 Range/Units 05:37 05:37 06:19 WBC 11.7 H (3.8-10.6) k/uL APTT 64.7 H (22.0-30.0) sec POC Glucose (mg/dL) 141 H (75-99) mg/dL 09/09/19 Range/Units 11:51 WBC (3.8-10.6) k/uL APTT (22.0-30.0) sec POC Glucose (mg/dL) 127 H (75-99) mg/dL - Imaging Chest x-ray: report reviewed, image reviewed EKG: image reviewed Assessment and Plan Assessment: 1. Triple-vessel coronary artery disease 2. Severe aortic valve stenosis 3. Mild to moderate tricuspid valve regurgitation 4. Left ventricular systolic function to be within normal limits, ejection fraction per DAMARI 55% 5. Recurrent syncope 6. Elevated troponin level 7. Hyperlipidemia 8. History of coronary artery disease, status post coronary artery bypass grafting surgery in 1999 MARTE to LAD 9. Remote history of nicotine dependence quit smoking over 25 years ago Plan: The patient was seen and examined at his bedside on the cardiac stepdown unit. His chart and diagnostics were reviewed. His case was discussed in detail with Dr. Alba from cardiothoracic surgery. Preoperative testing and preoperative teaching was initiated. Once preoperative testing has been obtained and reviewed further discussions regarding aortic valve surgery/TAVR and myocardial revascularization/PCI. Continue to optimize his medical management. Medical management per primary care service. Discussed the importance of continued smoking cessation. More recommendations to follow based on patient's clinical course and preoperative testing. Thank you Dr. Post for this consult and we'll look forward to working with you in the care of your patient. Time with Patient: Greater than 30
--- NOTE | 2019-09-09 19:39 | CC ---
CARDIAC CATHETERIZATION REPORT DATE OF SERVICE: 09/09/2019 PERFORMING PHYSICIAN: Chaitanya Post MD. PROCEDURES PERFORMED: 1. Selective left and right coronary angiogram. 2. Left internal mammary artery angiogram. INDICATION: This is a very pleasant 69-year-old gentleman with history of coronary artery disease and prior MARTE to LAD as well as known aortic stenosis. He was admitted to the hospital with syncope. He underwent an echocardiogram which revealed evidence of severe aortic stenosis. He was scheduled to undergo a DAMARI and heart catheterization. It showed severe . APPROACH: Right common femoral artery. COMPLICATIONS: None. LEVEL OF SEDATION: Moderate, with sedation length of 20 minutes. PROCEDURE DESCRIPTION: After obtaining informed consent, the patient was brought to the cardiac maintenance shop laborer. The right common femoral artery was cannulated using micropuncture technique. The micropuncture wire passed easily. Then I placed a 6-[place]jiboutian sheath. After that I did selective left and right coronary angiogram. That was performed using JL4 and JR4 catheters. Left internal mammary artery angiogram was performed using JR4 catheter. The procedure was completed without any complication. SELECTIVE CORONARY ANGIOGRAM: 1. The RCA has a critical lesion in the mid portion that appeared to be in the range of 99.9%. 2. The left main has distal lesion that appeared to be in the range of 60% to 70%. It bifurcates into LCX and LAD. 3. The LCX is a large-caliber vessel. It is a codominant vessel. The ostial circ appeared to be involved from the lesion in the LAD. The proximal circumflex has another lesion that appeared to be in the range of 60% to 70%. It gives rise to OM1, which has an ostial lesion that appeared to be in the range of 70%. That OM itself has another lesion in the mid portion that appeared to be in the range of 80%. The circumflex continued after that as a medium-caliber vessel. 4. The LAD is chronically occluded in the proximal to mid portion. ANGIOGRAM OF CORONARY BYPASS: The MARTE to LAD is patent. CONCLUSION: 1. Severe triple-vessel coronary artery disease. 2. Patent MARTE to LAD. 3. Severe disease involving the left circumflex. 4. Critical disease involving the RCA. POST-PROCEDURE MANAGEMENT: Consult surgeon for evaluation of aortic valve replacement. MMODL / IJN: [id number] /
[2019-09-09 20:11] LABS: Glucose,Whole Blood 190 mg/dL (75-99)
[2019-09-09] MEDS: MUPIROCIN 2% OINT 22 GM TUBE NASAL SCH (20:45)
[2019-09-10] MEDS: ACETAMINOPHEN TAB 325 MG TAB PO PRN ×2 (03:32→08:14)
[2019-09-10] MEDS: ONDANSETRON 4 MG/2 ML VIAL IVP PRN (03:32)
[2019-09-10 06:23] LABS: Glucose,Whole Blood 148 mg/dL (75-99)
[2019-09-10 06:48] LABS: Basophils # (A) 0.2 k/uL (0-0.2); Basophils % (A) 2 %; Eosinophils # (A) 0.6 k/uL (0-0.7); Eosinophils % (A) 5 %; HCT 45.5 % (39.0-53.0); HGB 15.4 gm/dL (13.0-17.5); Lymphocytes # (A) 2.5 k/uL (1.0-4.8); Lymphocytes % (A) 23 %; MCHC 33.9 g/dL (31.0-37.0); MCV 94.5 fL (80.0-100.0); Mean Platelet Volume 7.9; Monocytes # (A) 0.7 k/uL (0-1.0); Monocytes % (A) 7 %; Neutrophils # (A) 6.7 k/uL (1.3-7.7); Neutrophils % (A) 62 %; Platelet Count 228 k/uL (150-450); RBC 4.81 m/uL (4.30-5.90); RDW 12.9 % (11.5-15.5); WBC 10.8 k/uL (3.8-10.6)
[2019-09-10 06:53] LABS: ALT 39 U/L (21-72); AST 34 U/L (17-59); African American GFR (CKD) >90 (>60 ml/min/1.73 sqM); Albumin 4.3 g/dL (3.5-5.0); Alkaline Phosphatase 56 U/L (38-126); Anion Gap 8 mmol/L; Blood Urea Nitrogen 12 mg/dL (9-20); Calcium 9.7 mg/dL (8.4-10.2); Carbon Dioxide 30 mmol/L (22-30); Chloride 104 mmol/L (98-107); Glucose 151 mg/dL (74-99); Magnesium 2.1 mg/dL (1.6-2.3); Non-African American GFR(CKD) 89 (>60 ml/min/1.73 sqM); Potassium 4.5 mmol/L (3.5-5.1); Sodium 142 mmol/L (137-145); Total Bilirubin 0.5 mg/dL (0.2-1.3); Total Protein 7.6 g/dL (6.3-8.2)
[2019-09-10 06:59] LABS: INR 0.9 (<1.2); Partial Thromboplastin Time 24.8 sec (22.0-30.0); Prothrombin Time 9.9 sec (9.0-12.0)
[2019-09-10] MEDS: MUPIROCIN 2% OINT 22 GM TUBE NASAL SCH ×2 (08:14→20:14)
[2019-09-10] MEDS: ASPIRIN 325 MG TAB PO SCH (08:14)
--- NOTE | 2019-09-10 09:02 | P.PN ---
Subjective Progress Note Date: 09/10/19 Principal diagnosis: Aortic stenosis This is a 69-year-old gentleman with history of aortic stenosis was admitted to the hospital with a witnessed syncope. Beside that he has been experiencing shortness of breath with even minimal exertion. The patient was seen today, 09/17/2019. He underwent a DAMARI yesterday which revealed severe aortic stenosis. He underwent heart catheterization which revealed severe triple vessel CAD with patent MARTE to LAD. He is in process of being seen by the cardiothoracic surgeon for possible surgical or percutaneous aortic valve replacement. Objective - Vital Signs Vital signs: Vital Signs Temp 98.8 F 09/10/19 08:00 Pulse 80 09/10/19 08:00 Resp 20 09/10/19 08:00 BP 127/71 09/10/19 08:00 Pulse Ox 92 L 09/10/19 08:00 Intake & Output 09/09/19 09/10/19 09/10/19 18:59 06:59 18:59 Intake Total 243 Balance 243 Weight 107.4 kg Intake: IV 125 Oral 118 Other: # Voids 0 1 # Bowel Movements 0 - Constitutional General appearance: Present: no acute distress - Respiratory Respiratory: bilateral: CTA - Cardiovascular Rhythm: regular Heart sounds: normal: S1 Abnormal Heart Sounds: Present: systolic murmur - Labs CBC & Chem 7: 09/10/19 06:29 09/10/19 06:29 Labs: Abnormal Lab Results - Last 24 Hours (Table) 09/09/19 09/09/19 09/09/19 Range/Units 11:51 16:56 20:10 WBC (3.8-10.6) k/uL Glucose (74-99) mg/dL POC Glucose (mg/dL) 127 H 129 H 190 H (75-99) mg/dL 09/10/19 09/10/19 09/10/19 Range/Units 06:22 06:29 06:29 WBC 10.8 H (3.8-10.6) k/uL Glucose 151 H (74-99) mg/dL POC Glucose (mg/dL) 148 H (75-99) mg/dL Assessment and Plan Assessment: Assessment #1 syncope #2 severe aortic stenosis Plan #1 continue current medical regimen #2 follow-up after the surgical consult
--- NOTE | 2019-09-10 10:39 | P.PN ---
Subjective 69-year-old male with a past medical history of coronary artery disease status post CABG, aortic stenosis, type 2 diabetes mellitus, hyperlipidemia, obstructive sleep apnea on CPAP coming to the hospital with a chief complaint of syncope. Patient states for the past 1-2 months he has been having dizziness and feels lightheaded. Yesterday he felt dizzy and passed out for almost 5-10 minutes. Patient denies having any loss of bowel or bladder control. No tongue bites. He denies having any chest pain or palpitations. Patient states that he gets short of breath on taking a flight of stairs in the recent months. Patient has, motor that is consistent with severe aortic stenosis, he states that he has this murmur for a long period of time. Patient denies having any fevers chills or rigors. No cough or difficulty in breathing. No dysuria or hematuria. No alcohol pain nausea vomiting or diarrhea. No weakness of his extremities. No headaches or blurring of vision. No speech abnormalities. In the emergency room patient had a CT of the head that was showing no acute intracranial process. He also had a chest x-ray that is within normal limits and an EKG showing normal sinus rhythm. There is mild elevation of troponins at 0.047. The patient has been admitted for further management. On 09/08/2019 - patient is sitting up in a chair by the bedside comfortably. He had an episode of dizziness this morning when he tried to get from the room to his bathroom. He did not have a fall. His headaches are much better. He denie s having any chest pain. Mild shortness of breath. No cough. He denies having any fevers chills or rigors. No lower extremity swelling. Patient denies having any abdominal pain. Denies noticing any bleeding from any site. Patient's vitals have been stable. No acute events reported by nursing staff. Patient had an echocardiogram done this morning showing severe aortic stenosis. 09/09/2019 Patient will undergo cardiac catheterization and DAMARI today. Further management and plan depending on the DAMARI results of recent cardiac catheterization findings. Patient is complaining of mild lightheadedness no other significant symptoms at this time 09/10/2019 Patient is clinically doing well is found that there was a disease patient is being evaluated for CABG and aortic valve replacement. Patient is alert and oriented 3 to me but patient apparently was having some hallucinations which I believe secondary to benzodiazepines which were discontinued and Dilaudid will be discontinued and patient will need some nonpharmacological measures including ambulating the hallways will open of the windows and I believe this is secondary to sundowners and due to prolonged hospitalization Constitutional: Denied any fatigue denied any fever. Cardio vascular: denied any chest pain, palpitations Gastrointestinal denied any nausea vomiting Pulmonary: Denied any shortness of breath cough Neurologic denied any new focal deficits All inpatient medications were reviewed and appropriate changes in these medications as dictated in the interval history and assessment and plan. Objective - Vital Signs Vital signs: Vital Signs Temp 98.8 F 09/10/19 08:00 Pulse 80 09/10/19 08:00 Resp 20 09/10/19 08:00 BP 127/71 09/10/19 08:00 Pulse Ox 92 L 09/10/19 08:00 Intake & Output 09/09/19 09/10/19 09/10/19 18:59 06:59 18:59 Intake Total 243 Balance 243 Weight 107.4 kg Intake: IV 125 Oral 118 Other: Voiding Method Toilet # Voids 0 1 # Bowel Movements 0 - Exam PHYSICAL EXAMINATION: GENERAL: The patient is alert and oriented x3, not in any acute distress. Well developed, well nourished. HEENT: Pupils are round and equally reacting to light. EOMI. No scleral icterus. No conjunctival pallor. Normocephalic, atraumatic. No pharyngeal erythema. No thyromegaly. CARDIOVASCULAR: S1 and S2 present. No rubs, or gallops. systolic murmur and aortic area PULMONARY: Chest is clear to auscultation, no wheezing or crackles. ABDOMEN: Soft, nontender, nondistended, normoactive bowel sounds. No palpable organomegaly. MUSCULOSKELETAL: No joint swelling or deformity. EXTREMITIES: No cyanosis, clubbing, or pedal edema. NEUROLOGICAL: Gross neurological examination did not reveal any focal deficits. SKIN: No rashes. - Labs CBC & Chem 7: 09/10/19 06:29 09/10/19 06:29 Labs: Abnormal Lab Results - Last 24 Hours (Table) 09/09/19 09/09/19 09/09/19 Range/Units 11:51 16:56 20:10 WBC (3.8-10.6) k/uL Glucose (74-99) mg/dL POC Glucose (mg/dL) 127 H 129 H 190 H (75-99) mg/dL 09/10/19 09/10/19 09/10/19 Range/Units 06:22 06:29 06:29 WBC 10.8 H (3.8-10.6) k/uL Glucose 151 H (74-99) mg/dL POC Glucose (mg/dL) 148 H (75-99) mg/dL Assessment and Plan Plan: -syncope possibly secondary to aortic stenosis, cardiac catheterization showed triple vessel disease patient probably will undergo CABG and aortic valve replacement -Mild hallucinations and confusion probably related to delirium from prolonged hospitalization further intervention as mentioned above - non-ST elevation myocardial infarction with triple vessel disease -Coronary artery disease with previous CABG -Type 2 diabetes mellitus -Hypertension -Hyperlipidemia -Obstructive sleep apnea on CPAP machine. Jarod is to continue present medications headache with radiation followed by DAMARI .patient's syncope is most probably from aortic stenosis
--- NOTE | 2019-09-10 10:53 | US ---
EXAMINATION TYPE: US carotid duplex BILAT DATE OF EXAM: 09/10/2019 COMPARISON: NONE CLINICAL HISTORY: Pre-Op Cardiac Surgery. PreCabg. No hx TIA, no HTN EXAM MEASUREMENTS: RIGHT: Peak Systolic Velocity (PSV) cm/sec ----- Right CCA: 71.6 ----- Right ICA: 86.6 ----- Right ECA: 103.2 ICA/CCA ratio: 1.2 RIGHT: End Diastole cm/sec ----- Right CCA: 15.5 ----- Right ICA: 18.0 ----- Right ECA: 12.8 LEFT: Peak Systolic Velocity (PSV) cm/sec ----- Left CCA: 83.8 ----- Left ICA: 100.0 ----- Left ECA: 95.1 ICA/CCA ratio: 1.2 LEFT: End Diastole cm/sec ----- Left CCA: 24.1 ----- Left ICA: 40.2 ----- Left ECA: 14.4 VERTEBRALS (direction of flow): Right Vertebral: Antegrade Left Vertebral: Antegrade Rhythm: Normal No plaque, significant stenosis, wall thickening or elevated velocities visualized. IMPRESSION: Mild degree of grayscale atheromatous plaquing with no sonographically evident hemodynam ically significant stenosis within either visualized carotid arterial system. Criteria for Assigning % of Stenosis / Diameter reduction (Estimation based on the indirect measurements of the internal carotid artery velocities (ICA PSV). 1. Normal (no stenosis)=ICA PSV < 125 cm/s: ratio < 2.0: ICA EDV<40 cm/s. 2. Less than 50% stenosis=ICA PSV < 125 cm/s: ratio < 2.0: ICA EDV<40 cm/s. 3. 50 to 69% stenosis=ICA PSV of 125 to 230 cm/s: ration 2.0 ? 4.0: ICA EDV 40-100 cm/s. 4. Greater than 70% stenosis to near occlusion= ICA PSV > 230 cm/s: ratio > 4.0: ICA EDV > 100 cm/s. 5. Near occlusion= ICA PSV velocities may be low or undetectable: variable ratio and ICA EDV. 6. Total occlusion=unable to detect flow.
[2019-09-10 11:55] LABS: Glucose,Whole Blood 111 mg/dL (75-99)
[2019-09-10 12:56] LABS: Hepatitis A Antibody IgM Non-Reactive (Non-Reactive); Hepatitis B Core IgM Non-Reactive (Non-Reactive); Hepatitis B Surface Antigen Non-Reactive (Non-Reactive); Hepatitis C IgG Antibody Non-Reactive (Non-Reactive)
[2019-09-10 13:57] LABS: Hemoglobin A1C 6.6 % (4.0-6.0)
--- NOTE | 2019-09-10 14:04 | P.PN ---
Subjective Progress Note Date: 09/10/19 Principal diagnosis: Severe aortic valve stenosis and triple-vessel coronary artery disease. Past medical history significant for coronary artery disease, status post coronary artery bypass grafting surgery in 1999 with his left internal mammary artery to left anterior descending coronary artery, known aortic valve stenosis, history of platelet disorder status post splenectomy, diabetes mellitus type 2, hyperlipidemia and a remote history of nicotine dependence which he quit smoking over 25 years ago. The patient is laying in bed on the cardiac stepdown unit. He is in no acute distress. Denies any complaints of pain or shortness of breath at this time. States he has been having episodes of lightheadedness off and on throughout the evening, denies any further episodes of syncope. Continues to report that he feels like he has some sort of parasitic infection surrounding his eyes and to his back and bilateral shoulders. Preoperative testing is in progress for a ortic valve surgery and myocardial revascularization surgery. Carotid duplex study was completed this morning which demonstrates no sonographically evidence of hemodynamically significant stenosis. Bedside FEV1 completed which demonstrated 54% predicted value. Oxygen saturation is 95% on room air and he is achieving 2000 mL on his incentive spirometry. Laboratory results this morning showed a WBC count of 10.8, BUN 12, creatinine 0.86 and TSH of 0.992. Preoperative teaching reinforced with the patient and his family member present at the bedside. Objective - Vital Signs Vital signs: Vital Signs Temp 98 F 09/10/19 11:59 Pulse 69 09/10/19 11:59 Resp 16 09/10/19 11:59 BP 154/84 09/10/19 11:59 Pulse Ox 94 L 09/10/19 11:59 Intake & Output 09/09/19 09/10/19 09/10/19 18:59 06:59 18:59 Intake Total 243 Balance 243 Weight 107.4 kg Intake: IV 125 Oral 118 Other: Voiding Method Toilet # Voids 0 1 # Bowel Movements 0 - Constitutional General appearance: Present: cooperative, no acute distress, obese - Respiratory Details: Lungs are essentially clear throughout, few scattered crackles to his bilateral bases. No wheezes or rhonchi. Respirations are symmetrical and nonlabored. Oxygen saturation 95% on room air. Keeping 2000 mL on his incentive spirometry. Bedside FEV1 completed which showed a 54% of predicted value. - Cardiovascular Details: Regular rhythm and rate. S1 and S2 present, negative for S3, pansystolic murmur present. No edema present. - Gastrointestinal Gastrointestinal Comment(s): Abdomen is soft, nontender nondistended. Active bowel sounds present in all 4 abdominal quadrants. No guarding or rigidity. No organomegaly appreciated. - Integumentary Integumentary Comment(s): Skin is warm and dry. No clubbing or cyanosis is present. No rash or abnormal pigmentation is present. Dry scabbed area to his right periorbital area. No drainage present. - Neurologic Neurologic: Present: CNII-XII intact - Musculoskeletal Musculoskeletal: Present: gait normal, strength equal bilaterally - Psychiatric Psychiatric Comment(s): Occasional hallucinations and delusional thoughts. Psychiatric: Present: A&O x's 3, appropriate affect, intact judgment & insight - Allied health notes Allied health notes reviewed: nursing - Labs CBC & Chem 7: 09/10/19 06:29 09/10/19 06:29 Labs: Abnormal Lab Results - Last 24 Hours (Table) 09/09/19 09/09/19 09/10/19 Range/Units 16:56 20:10 06:22 WBC (3.8-10.6) k/uL Glucose (74-99) mg/dL POC Glucose (mg/dL) 129 H 190 H 148 H (75-99) mg/dL 09/10/19 09/10/19 09/10/19 Range/Units 06:29 06:29 11:49 WBC 10.8 H (3.8-10.6) k/uL Glucose 151 H (74-99) mg/dL POC Glucose (mg/dL) 111 H (75-99) mg/dL - Imaging and Cardiology Carotid duplex study results reviewed. Vein mapping results are reviewed. Assessment and Plan Assessment: 1. Triple-vessel coronary artery disease 2. Severe aortic valve stenosis 3. Mild to moderate tricuspid valve regurgitation 4. Left ventricular systolic function to be within normal limits, ejection fraction per DAMARI 55% 5. Recurrent syncope 6. Non-STEMI this admission 7. Hyperlipidemia 8. History of coronary artery disease, status post coronary artery bypass grafting surgery in 1999 MARTE to LAD 9. Remote history of nicotine dependence quit smoking over 25 years ago Plan: 1. Continue to optimize medical management with aspirin, statin and beta robin. Increase beta robin as tolerated. 2. Encourage use of his incentive spirometry every hour while awake. 3. CTA of his thoracic aorta tomorrow 09/11/2019. 4. Consult pulmonary critical care medicine for preoperative clearance for cardiac surgery. 5. Consult hematology, history of ITP status post splenectomy. 6. Consult infectious disease, history of splenectomy and patient reports that he feels like he has a parasitic infection. 7. Consult psychiatry, rule out delusions regarding systemic parasitic infection. 8. 5 m walk test was completed by cardiac rehab, time 1:5.74 seconds, time 2: 4.89 seconds, time 3: 5.05 seconds. 9. Once his preoperative testing has been obtained a STS risk score will be calculated and discussed with the patient by Dr. Barry Vela. 10. Medical management and other comorbidities per primary care service. 11. Once his preoperative workup has been completed and dental clearance has been obtained he will be scheduled for an urgent aortic valve replacement and myocardial revascularization surgery to be performed by Dr. Barry Vela. This is been discussed with the patient, his family member present at the bedside and with Dr. Post from [facility]. The patient is in agreement and wishes to proceed with aortic valve replacement surgery and my cardiovascular position surgery. 12. Dr. Ingram has been consulted for dental clearance preoperative cardiac surgery. 13. Obtain a CT scan facial bones without contrast, panoramic reconstruction preoperative valve surgery. 14. More recommendations to follow based on patient's clinical course. Time with Patient: Greater than 30
--- NOTE | 2019-09-10 14:54 | CT ---
EXAMINATION TYPE: CT facial bones wo con DATE OF EXAM: 09/10/2019 HISTORY: Dental Clearance CT DLP: 611.2 mGycm. Automated Exposure Control for Dose Reduction was Utilized. TECHNIQUE: CT scan of the head is performed without contrast. Additionally Panorex view was obtained. COMPARISON: CT Sinus dated 09/07/2017. FINDINGS: Panorex view was obtained there are numerous dental implants of the maxilla and mandible. Some of the se are metallic with implanted metallic roots. No gross evidence of periapical loosening on the Panor ex view. Wallace artifact obscures evaluation however no gross evidence of cortical erosion is seen in the mandible or maxilla. There is redemonstration of a similar-appearing opacified ethmoid air cell o n coronal images in bone algorithm such as image 205 image 39 with some dehiscence of the roof of the ethmoid sinuses and the performed plate. This is unchanged from the prior of 2016. Surgical change o f the ostia medial complexes. 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 Orbits are symmetric. Low-density in the left temporal lobe is partially visualized either representing encephalomalacia or arachnoid cyst, suboptimally evaluated given technique. Cereb ral atrophy is also partially visualized. IMPRESSION: 1. Multiple metallic mandibular and maxillary dental implants with no gross evidence of cortical eros ion or periapical lucency. 2. Opacification of the superior ethmoid air cell with focal dehiscence of the curve formed plate unc hanged from 2017. Again mucocele is possible.
[2019-09-10] MEDS: METOPROLOL TARTRATE 25 MG TAB PO SCH ×2 (14:58→20:14)
[2019-09-10] MEDS: ATORVASTATIN 80 MG TAB PO SCH (14:58)
--- NOTE | 2019-09-10 16:07 | P.GSCN ---
History of Present Illness Consult date: 09/10/19 Reason for Consult: Dental Clearance for surgery 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 History of Any Multi-Drug Resistant Organisms: None Reported Past Surgical History: Appendectomy, Coronary Bypass/CABG Additional Past Surgical History / Comment(s): spleenectomy, sinus surgery, jaw surgery Past Anesthesia/Blood Transfusion Reactions: No Reported Reaction Past Psychological History: No Psychological Hx Reported Smoking Status: Former smoker Past Alcohol Use History: None Reported Past Drug Use History: None Reported - Past Family History Mother Family Medical History: Congestive Heart Failure (CHF) Father Family Medical History: Myocardial Infarction ([place]) Sister(s) Family Medical History: Coronary Artery Disease (CAD) Additional Family Medical History / Comment(s): Status post coronary artery bypass grafting surgery. Medications and Allergies Home Medications Medication Instructions Recorded Confirmed Type metFORMIN HCL 1,000 mg PO BID 10/11/14 09/06/19 History Calcium Carbonate [Calcium] 600 mg PO DAILY 09/06/19 09/06/19 History Cholecalciferol [Vitamin D3 (25 1,000 unit PO DAILY 09/06/19 09/06/19 History Mcg = 1000 Iu)] Gelatin 650mg 1,300 mg PO DAILY 09/06/19 09/06/19 History Krill Oil 500 mg PO DAILY 09/06/19 09/06/19 History Magnesium 200 mg PO DAILY 09/06/19 09/06/19 History Milk Thistle 150 mg PO DAILY 09/06/19 09/06/19 History Hobbs-3 Fatty Acids [Hobbs-3] 1,000 mg PO DAILY 09/06/19 09/06/19 History Ubidecarenone [Co Q-10] 100 mg PO DAILY 09/06/19 09/06/19 History Vitamin B Complex 1 cap PO DAILY 09/06/19 09/06/19 History Allergies Allergy/AdvReac Type Severity Reaction Status Date / Time No Known Allergies Allergy Verified 09/06/19 11:05 Surgical - Exam Vital Signs Temp Pulse Resp BP Pulse Ox 98.1 F 88 16 138/82 96 09/06/19 09:06 09/06/19 09:06 09/06/19 09:06 09/06/19 09:06 09/06/19 09:06 Results Pt had no signs of intra or extra oral swelling. No gross caries detected clinically. No pain on percussion or palpation. Pt did report history of pain lower right lingual. Upon examination, an aphthous ulcer was noted lingual #30- 31 implant area about 2mm in length and 1mm in width. No need for treatment at this time. Some bone loss noted on tooth #31 implant. Instructed patient to see dentist after sugery. Patient is cleared dentally for surgery - Labs 09/10/19 06:29 09/10/19 06:29 Abnormal Lab Results - Last 24 Hours (Table) 09/09/19 09/09/19 09/10/19 Range/Units 16:56 20:10 06:22 WBC (3.8-10.6) k/uL Glucose (74-99) mg/dL POC Glucose (mg/dL) 129 H 190 H 148 H (75-99) mg/dL Hemoglobin A1c (4.0-6.0) % 09/10/19 09/10/19 09/10/19 Range/Units 06:29 06:29 06:29 WBC 10.8 H (3.8-10.6) k/uL Glucose 151 H (74-99) mg/dL POC Glucose (mg/dL) (75-99) mg/dL Hemoglobin A1c 6.6 H (4.0-6.0) % 09/10/19 Range/Units 11:49 WBC (3.8-10.6) k/uL Glucose (74-99) mg/dL POC Glucose (mg/dL) 111 H (75-99) mg/dL Hemoglobin A1c (4.0-6.0) % Diabetes panel 09/10/19 09/10/19 Range/Units 06:29 06:29 Sodium 142 (137-145) mmol/L Potassium 4.5 (3.5-5.1) mmol/L Chloride 104 (98-107) mmol/L Carbon Dioxide 30 (22-30) mmol/L BUN 12 (9-20) mg/dL Creatinine 0.86 (0.66-1.25) mg/dL Glucose 151 H (74-99) mg/dL Hemoglobin A1c 6.6 H (4.0-6.0) % Calcium 9.7 (8.4-10.2) mg/dL AST 34 (17-59) U/L ALT 39 (21-72) U/L Alkaline Phosphatase 56 (38-126) U/L Total Protein 7.6 (6.3-8.2) g/dL Albumin 4.3 (3.5-5.0) g/dL Thyroid panel 09/10/19 Range/Units 06:29 TSH 0.992 (0.465-4.680) mIU/L Calcium panel 09/10/19 Range/Units 06:29 Calcium 9.7 (8.4-10.2) mg/dL Albumin 4.3 (3.5-5.0) g/dL Pituitary panel 09/10/19 Range/Units 06:29 Sodium 142 (137-145) mmol/L Potassium 4.5 (3.5-5.1) mmol/L Chloride 104 (98-107) mmol/L Carbon Dioxide 30 (22-30) mmol/L BUN 12 (9-20) mg/dL Creatinine 0.86 (0.66-1.25) mg/dL Glucose 151 H (74-99) mg/dL Calcium 9.7 (8.4-10.2) mg/dL TSH 0.992 (0.465-4.680) mIU/L Adrenal panel 09/10/19 Range/Units 06:29 Sodium 142 (137-145) mmol/L Potassium 4.5 (3.5-5.1) mmol/L Chloride 104 (98-107) mmol/L Carbon Dioxide 30 (22-30) mmol/L BUN 12 (9-20) mg/dL Creatinine 0.86 (0.66-1.25) mg/dL Glucose 151 H (74-99) mg/dL Calcium 9.7 (8.4-10.2) mg/dL Total Bilirubin 0.5 (0.2-1.3) mg/dL AST 34 (17-59) U/L ALT 39 (21-72) U/L Alkaline Phosphatase 56 (38-126) U/L Total Protein 7.6 (6.3-8.2) g/dL Albumin 4.3 (3.5-5.0) g/dL
[2019-09-10 17:19] LABS: Glucose,Whole Blood 133 mg/dL (75-99)
[2019-09-10] MEDS: HEPARIN SODIUM,PORCINE 5,000 UNIT/ML 1 ML VIAL SQ SCH ×2 (17:24→22:54)
[2019-09-10 21:01] LABS: Glucose,Whole Blood 193 mg/dL (75-99)
--- NOTE | 2019-09-10 21:15 | P.CONS ---
History of Present Illness - Reason for Consult Consult date: 09/10/19 - Chief Complaint Syncope - History of Present Illness 69 -year-old male who has a known history of coronary artery disease with history of a prior coronary artery bypass grafting procedure 19 years prior. He has a known history of aortic valve stenosis that apparently has now critically worse. 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 The patient relates too many symptoms including seeing a worm on his right leg the dorsum of the foot to the ankle which when he exposed to sunlight burned it up and it went away. He often feels like there are worms from his face going into his sinuses and he can feel a stinging sensation. Is an area on his back that itches chronically picks at it, he uses his thumb nail to take out chunks of flush to remove the difficulty. He did have a cyst on his right upper buttocks that he manipulated for quite some time and is now resolved. He also has some difficulties with some pick injury to his right face at the inferior orbital area He relates that he spends a lot of time outdoors, he is eating a lot of wild meets. He relates too many episodes when he was a child of exposures in cluding once drinking water from the family cow trough and it was found that there was a raccoon floating of the top of the tank that he had drank water from again when he was a child. He is concerned that he has some type of internal parasitic infection. Is also concerned about internal fungal infection through his whole system. As noted admission the patient was having difficulties with chest pain and shortness of breath dyspnea with exertion and poor exercise tolerance and episodes of syncope. He has been evaluated by cardiology as well as cardiovascular surgery has been thought evidence of a critical aortic valve stenosis with need for surgical repair. He has been seen by the dentist without need for any specific surgical treatment before his aortic valve surgery. Dentist does not see evidence of oral fungal infection. Review of Systems HEENT: Without acute headaches or visual change but has had the episodes of loss of consciousness. His some intermittent discomfort of his oral cavity small aphthous ulcers been noted recently Lungs: Chronic shortness of breath chronic cough no hemoptysis Cardiovascular: Dyspnea with exertion some chest pain syncope occurring Gastrointestinal:Denies nausea, vomiting, diarrhea, constipation, hematemesis, melena, hematochezia. No no significant change of bowel habit noticed. Musculoskeletal: denies significant myalgias or arthralgias. No new joint swelling. Denies new back pain. Skin Per the HPI many skin concerns. Neuro: Denies headache or visual change. Denies any new onset weakness or difficulty with ambulation. Denies falls or seizures. 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 Has been seen by dermatology without evidence of any significant skin disorder that appears that there was referral in the past to psychiatry, patient however has not seen a psychiatrist. Smoking Status: Former smoker Past Alcohol Use History: None Reported Past Drug Use History: None Reported - Past Family History Mother Family Medical History: Congestive Heart Failure (CHF) Father Family Medical History: Myocardial Infarction (PA) Sister(s) Family Medical History: Coronary Artery Disease (CAD) Additional Family Medical History / Comment(s): Status post coronary artery bypass grafting surgery. Medications and Allergies Home Medications and Allergies Comment(s): Current Medications Acetaminophen (Tylenol Tab) 650 mg PO Q4HR PRN PRN Reason: Fever and/ or Pain Last Admin: 09/10/19 08:14 Dose: 650 mg Documented by: Aspirin (Aspirin) 325 mg PO DAILY [facility] Last Admin: 09/10/19 08:14 Dose: 325 mg Documented by: Atorvastatin Calcium (Lipitor) 80 mg PO DAILY [facility] Last Admin: 09/10/19 14:58 Dose: 80 mg Documented by: Heparin Sodium (Porcine) (Heparin) 5,000 unit SQ Q8HR [facility] Last Admin: 09/10/19 17:24 Dose: 5,000 unit Documented by: Metoprolol Tartrate (Lopressor) 25 mg PO BID [facility] Last Admin: 09/10/19 20:14 Dose: 25 mg Documented by: Miscellaneous Information (Rx Info: Iv Contrast Was Given) 1 each MISCELLANE DAILY PRN PRN Reason: Per Protocol Stop: 09/11/19 14:50 Mupirocin (Bactroban Oint) 1 applic NASAL BID [place] Stop: 09/14/19 21:01 Last Admin: 09/10/19 20:14 Dose: 1 applic Documented by: Nitroglycerin (Nitrostat) 0.4 mg SUBLINGUAL Q5M PRN PRN Reason: Chest Pain Nitroglycerin (Nitrostat) 0.4 mg SUBLINGUAL Q5M PRN PRN Reason: Chest Pain Ondansetron HCl (Zofran) 4 mg IVP Q6HR PRN PRN Reason: Nausea And Vomiting Last Admin: 09/10/19 03:32 Dose: 4 mg Documented by: Home Medications Medication Instructions Recorded Confirmed Type metFORMIN HCL 1,000 mg PO BID 10/11/14 09/06/19 History Calcium Carbonate [Calcium] 600 mg PO DAILY 09/06/19 09/06/19 History Cholecalciferol [Vitamin D3 (25 1,000 unit PO DAILY 09/06/19 09/06/19 History Mcg = 1000 Iu)] Gelatin 650mg 1,300 mg PO DAILY 09/06/19 09/06/19 History Krill Oil 500 mg PO DAILY 09/06/19 09/06/19 History Magnesium 200 mg PO DAILY 09/06/19 09/06/19 History Milk Thistle 150 mg PO DAILY 09/06/19 09/06/19 History Stella-3 Fatty Acids [Stella-3] 1,000 mg PO DAILY 09/06/19 09/06/19 History Ubidecarenone [Co Q-10] 100 mg PO DAILY 09/06/19 09/06/19 History Vitamin B Complex 1 cap PO DAILY 09/06/19 09/06/19 History Allergies Allergy/AdvReac Type Severity Reaction Status Date / Time No Known Allergies Allergy Verified 09/06/19 11:05 Physical Exam Vitals: Vital Signs Temp Pulse Resp BP Pulse Ox 09/10/19 20:00 98.2 F 74 18 138/88 95 09/10/19 15:15 98.3 F 92 18 122/69 93 L 09/10/19 11:59 98 F 64 16 154/84 94 L 09/10/19 08:00 98.8 F 80 20 127/71 92 L 09/10/19 03:53 98 F 82 18 172/73 95 09/09/19 23:36 84 18 130/71 93 L Intake and Output 09/10/19 09/10/19 09/10/19 06:59 14:59 22:59 Intake Total 460 180 Balance 460 180 Intake: Oral 460 180 Other: Voiding Method Toilet Toilet # Voids 1 3 Weight 107.4 kg 61-year-old male who was obese but comfortable at this point in time. HEENT: Anicteric conjunctiva are pink and moist nasal mucosa grossly intact without significant lesions, there is no thrush. Neck: The neck is supple without significant lymphadenopathy or thyromegaly. Lungs: Good bilateral air entry without significant crackles or wheezing. There is no significant bronchial sounds. There is no egophony or dullness. Heart: Regular loud 3/6 systolic murmur left sternal border radiates to the carotids bilaterally it is holosystolic. Abdomen: Positive bowel sounds soft and nontender without palpable masses or organomegaly. There was no guarding or rebound. Extremities: The upper extremities have excellent pulses they are symmetric, no significant petechiae or telangiectasia. No splinter hemorrhages were noted. Blood sugars have evidence of some chronic edema but no snacking open ulcers are seen Neuro: Awake alert oriented to person place and time. There are no acute new gross focal sensory motor deficits. Skin: The patient is evidence of a few areas of chronic PICC irritation including to the inferior lateral aspect of the right orbit as well as to the L4-L5 area of the spine where he is able to reach with his thumbs bilaterally. The right buttocks has a well-healed area of prior irritation. No other areas are fluctuant. There is no residual scarring onto the right foot where the worm was burned by the sunlight. Results CBC & Chem 7: 09/10/19 06:29 09/10/19 06:29 Labs: Abnormal Lab Results - Last 24 Hours (Table) 09/10/19 09/10/19 09/10/19 Range/Units 06:22 06:29 06:29 WBC 10.8 H (3.8-10.6) k/uL Glucose (74-99) mg/dL POC Glucose (mg/dL) 148 H (75-99) mg/dL Hemoglobin A1c 6.6 H (4.0-6.0) % 09/10/19 09/10/19 09/10/19 Range/Units 06:29 11:49 17:09 WBC (3.8-10.6) k/uL Glucose 151 H (74-99) mg/dL POC Glucose (mg/dL) 111 H 133 H (75-99) mg/dL Hemoglobin A1c (4.0-6.0) % Microbiology - Last 24 Hours (Table) 09/10/19 08:20 Nasal Screen MRSA/MSSA - Preliminary Nasal Swab Laboratory Results WBC 10.8 k/uL (3.8-10.6) H 09/10/19 06:29 RBC 4.81 m/uL (4.30-5.90) 09/10/19 06:29 Hgb 15.4 gm/dL (13.0-17.5) 09/10/19 06:29 Hct 45.5 % (39.0-53.0) 09/10/19 06:29 MCV 94.5 fL (80.0-100.0) 09/10/19 06:29 MCH 32.0 pg (25.0-35.0) 09/10/19 06:29 MCHC 33.9 g/dL (31.0-37.0) 09/10/19 06:29 RDW 12.9 % (11.5-15.5) 09/10/19 06:29 Plt Count 228 k/uL (150-450) 09/10/19 06:29 Neutrophils % 62 % 09/10/19 06:29 Lymphocytes % 23 % 09/10/19 06:29 Monocytes % 7 % 09/10/19 06:29 Eosinophils % 5 % 09/10/19 06:29 Basophils % 2 % 09/10/19 06:29 Neutrophils # 6.7 k/uL (1.3-7.7) 09/10/19 06:29 Lymphocytes # 2.5 k/uL (1.0-4.8) 09/10/19 06:29 Monocytes # 0.7 k/uL (0-1.0) 09/10/19 06:29 Eosinophils # 0.6 k/uL (0-0.7) 09/10/19 06:29 Basophils # 0.2 k/uL (0-0.2) 09/10/19 06:29 PT 9.9 sec (9.0-12.0) 09/10/19 06:29 INR 0.9 (<1.2) 09/10/19 06:29 APTT 24.8 sec (22.0-30.0) 09/10/19 06:29 D-Dimer 0.32 mg/L FEU (<0.60) 09/07/19 10:12 Sodium 142 mmol/L (137-145) 09/10/19 06:29 Potassium 4.5 mmol/L (3.5-5.1) 09/10/19 06:29 Chloride 104 mmol/L (98-107) 09/10/19 06:29 Carbon Dioxide 30 mmol/L (22-30) 09/10/19 06:29 Anion Gap 8 mmol/L 09/10/19 06:29 BUN 12 mg/dL (9-20) 09/10/19 06:29 Creatinine 0.86 mg/dL (0.66-1.25) 09/10/19 06:29 Est GFR (CKD-EPI)AfAm >90 (>60 ml/min/1.73 sqM) 09/10/19 06:29 Est GFR (CKD-EPI)NonAf 89 (>60 ml/min/1.73 sqM) 09/10/19 06:29 Glucose 151 mg/dL (74-99) H 09/10/19 06:29 POC Glucose (mg/dL) 193 mg/dL (75-99) H 09/10/19 21:00 POC Glu Supply Assistant ID Mague Sandoval Candy 09/10/19 21:[address] Glu mg/dL 143 09/10/19 06:29 Hemoglobin A1c 6.6 % (4.0-6.0) H 09/10/19 06:29 Calcium 9.7 mg/dL (8.4-10.2) 09/10/19 06:29 Magnesium 2.1 mg/dL (1.6-2.3) 09/10/19 06:29 Total Bilirubin 0.5 mg/dL (0.2-1.3) 09/10/19 06:29 AST 34 U/L (17-59) 09/10/19 06:29 ALT 39 U/L (21-72) 09/10/19 06:29 Alkaline Phosphatase 56 U/L (38-126) 09/10/19 06:29 Troponin I 0.040 ng/mL (0.000-0.034) H* 09/06/19 20:52 Total Protein 7.6 g/dL (6.3-8.2) 09/10/19 06:29 Albumin 4.3 g/dL (3.5-5.0) 09/10/19 06:29 Triglycerides 131 mg/dL (<150) 09/07/19 04:37 Cholesterol 203 mg/dL (<200) H 09/07/19 04:37 LDL Cholesterol, Calc 103 mg/dL (0-99) H 09/07/19 04:37 HDL Cholesterol 74 mg/dL (40-60) H 09/07/19 04:37 TSH 0.992 mIU/L (0.465-4.680) 09/10/19 06:29 Urine Color Yellow 09/06/19 09:43 Urine Appearance Clear (Clear) 09/06/19 09:43 Urine pH 5.5 (5.0-8.0) 09/06/19 09:43 Ur Specific [place] 1.015 (1.001-1.035) 09/06/19 09:43 Urine Protein Negative (Negative) 09/06/19 09:43 Urine Glucose (UA) Negative (Negative) 09/06/19 09:43 Urine Ketones Negative (Negative) 09/06/19 09:43 Urine Blood Negative (Negative) 09/06/19 09:43 Urine Nitrite Negative (Negative) 09/06/19 09:43 Urine Bilirubin Negative (Negative) 09/06/19 09:43 Urine Urobilinogen <2.0 mg/dL (<2.0) 09/06/19 09:43 Ur Leukocyte Esterase Negative (Negative) 09/06/19 09:43 Hepatitis A IgM Ab Non-Reactive (Non-Reactive) 09/10/19 06:29 Hep Bs Antigen Non-Reactive (Non-Reactive) 09/10/19 06:29 Hep B Core IgM Ab Non-Reactive (Non-Reactive) 09/10/19 06:29 Hep C IgG Ab Non-Reactive (Non-Reactive) 09/10/19 06:29 Microbiology 09/10/19 08:20 Nasal Swab Nasal Screen MRSA/MSSA - Preliminary Assessment and Plan (1) Delusion of infestation Narrative/Plan: 69-year-old male who has a history of significant coronary artery disease who presents with episodes of syncope and some chest pain find evidence of severe aortic stenosis with evidence of some ongoing coronary artery disease. He is a candidate for coronary artery bypass grafting procedure. The patient is concerned about multiple parasitic infestations. He discusses his childhood with its many exposures and his activities of eating deer meat and other types of game throughout his adult life. We discussed that he was in [place] while he was in the and the rest of his life he has been here in [place]. We have very few parasites in the started climate, and most animal-based parasites cause gastroenteritis here. They are self-limited and do not cause lifelong difficulties. Once his discussed the patient relates that he has a systemic fungal infection, he has fungus throughout his entire body and shows that he has some minimal discoloration to his bilateral axilla. He relates that darkness is the fungus intubating him. We discussed that he is obese, he is diabetic and has some minimal skin color changes that are not open draining are consistent with fungal infection in the axilla area. This far as systemic fungal infection the patient is not ill without fever chills or sepsis and consequently systemic fungal infection is not even a consideration. If the patient needs cardiovascular surgery he has no significant infectious diseases reasons not to proceed. If he continues to have ongoing delusions of infestations and fungal infections could be seen by psychiatry in the outpatient setting. Current Visit: Yes Status: Acute Code(s): F22 - DELUSIONAL DISORDERS SNOMED Code(s): 606624510 (2) Severe aortic stenosis Current Visit: Yes Status: Acute Code(s): I35.0 - NONRHEUMATIC AORTIC (VALVE) STENOSIS SNOMED Code(s): 55389060
[2019-09-11] MEDS: ACETAMINOPHEN TAB 325 MG TAB PO PRN (03:36)
[2019-09-11 06:36] LABS: HCT 42.5 % (39.0-53.0); HGB 14.2 gm/dL (13.0-17.5); MCHC 33.5 g/dL (31.0-37.0); MCV 95.8 fL (80.0-100.0); Mean Platelet Volume 8.2; Platelet Count 191 k/uL (150-450); RBC 4.44 m/uL (4.30-5.90); WBC 10.8 k/uL (3.8-10.6)
[2019-09-11 06:49] LABS: African American GFR (CKD) >90 (>60 ml/min/1.73 sqM); Anion Gap 6 mmol/L; Blood Urea Nitrogen 13 mg/dL (9-20); Calcium 9.2 mg/dL (8.4-10.2); Carbon Dioxide 29 mmol/L (22-30); Chloride 106 mmol/L (98-107); Glucose 150 mg/dL (74-99); Non-African American GFR(CKD) >90 (>60 ml/min/1.73 sqM); Potassium 4.6 mmol/L (3.5-5.1); Sodium 141 mmol/L (137-145)
[2019-09-11 07:14] LABS: Glucose,Whole Blood 141 mg/dL (75-99)
[2019-09-11] MEDS: HEPARIN SODIUM,PORCINE 5,000 UNIT/ML 1 ML VIAL SQ SCH ×3 (08:03→23:25)
[2019-09-11] MEDS: MUPIROCIN 2% OINT 22 GM TUBE NASAL SCH ×2 (08:04→20:14)
[2019-09-11] MEDS: METOPROLOL TARTRATE 25 MG TAB PO SCH ×2 (08:04→20:14)
[2019-09-11] MEDS: ASPIRIN 325 MG TAB PO SCH (08:04)
[2019-09-11] MEDS: ATORVASTATIN 80 MG TAB PO SCH (08:04)
--- NOTE | 2019-09-11 08:04 | P.PN ---
Subjective Progress Note Date: 09/11/19 Principal diagnosis: Severe aortic valve stenosis and triple-vessel coronary artery disease. Past medical history significant for coronary artery disease, status post coronary artery bypass grafting surgery in 1999 with his left internal mammary artery to left anterior descending coronary artery, known aortic valve stenosis, history of platelet disorder status post splenectomy, diabetes mellitus type 2, hyperlipidemia and a remote history of nicotine dependence which he quit smoking over 25 years ago. The patient is sitting up in the chair eating breakfast on the cardiac stepdown unit. He is in no acute distress. Denies any complaints of chest pain or shortness of breath at this time. States he has a headache today that he has been taking Tylenol for, denies any further episodes of syncope. Continues to report that he feels like he has some sort of parasitic infection surrounding his eyes and to his back and bilateral shoulders. Preoperative testing is in [facility] for aortic valve surgery and myocardial revascularization surgery. Carotid duplex study was completed 09/10/19 which demonstrates no sonographically evidence of hemodynamically significant stenosis. Bedside FEV1 completed which demonstrated 54% predicted value. Oxygen saturation is 95% on room air and he is achieving 1500 mL on his incentive spirometry. Preoperative teaching reinforced with the patient. Objective - Vital Signs Vital signs: Vital Signs Temp 98 F 09/11/19 03:38 Pulse 65 09/11/19 03:38 Resp 18 09/11/19 03:38 BP 112/65 09/11/19 03:38 Pulse Ox 95 09/11/19 03:38 Intake & Output 09/10/19 09/11/19 09/11/19 18:59 06:59 18:59 Intake Total 460 180 Balance 460 180 Weight 107.8 kg Intake: Oral 460 180 Other: Voiding Method Toilet Toilet # Voids 3 1 - Constitutional Constitutional Comment(s): Alert and oriented, calm and cooperative, no distress noted - Respiratory Details: Lungs are essentially clear throughout, diminished bilateral bases. No wheezes or rhonchi. Respirations are symmetrical and nonlabored. Oxygen saturation 95% on room air. Able to achieve 1500mL on his incentive spirometry. - Cardiovascular Details: Regular rhythm and rate. S1 and S2 present, negative for S3, pansystolic murmur present. Trace bilateral lower extremity edema present. +2 pedal pulses. - Gastrointestinal Gastrointestinal Comment(s): Abdomen obese, soft, non-tender, non-distended. Normoactive bowel sounds present in all 4 quadrants. LBM this morning. No nausea or vomiting today. - Genitourinary Genitourinary Comment(s): Voiding per urinal - Integumentary Integumentary Comment(s): Skin warm and dry. No clubbing or cyanosis is present. No rash or abnormal pigmentation is present. Dry scabbed area to his right periorbital area. No drainage present. - Neurologic Neurologic Comment(s): Alert and oriented x 3. CNII-XII grossly intact - Psychiatric Psychiatric: Present: A&O x's 3, appropriate affect, intact judgment & insight - Allied health notes Allied health notes reviewed: nursing - Labs CBC & Chem 7: 09/11/19 06:00 09/11/19 06:00 Labs: Abnormal Lab Results - Last 24 Hours (Table) 09/10/19 09/10/19 09/10/19 Range/Units 06:29 11:49 17:09 WBC (3.8-10.6) k/uL Glucose (74-99) mg/dL POC Glucose (mg/dL) 111 H 133 H (75-99) mg/dL Hemoglobin A1c 6.6 H (4.0-6.0) % 09/10/19 09/11/19 09/11/19 Range/Units 21:00 06:00 06:00 WBC 10.8 H (3.8-10.6) k/uL Glucose 150 H (74-99) mg/dL POC Glucose (mg/dL) 193 H (75-99) mg/dL Hemoglobin A1c (4.0-6.0) % 09/11/19 Range/Units 07:09 WBC (3.8-10.6) k/uL Glucose (74-99) mg/dL POC Glucose (mg/dL) 141 H (75-99) mg/dL Hemoglobin A1c (4.0-6.0) % Microbiology - Last 24 Hours (Table) 09/10/19 08:20 Nasal Screen MRSA/MSSA - Preliminary Nasal Swab - Imaging and Cardiology Venous US: report reviewed Assessment and Plan Assessment: 1. Triple-vessel coronary artery disease 2. Severe aortic valve stenosis 3. Mild to moderate tricuspid valve regurgitation 4. Left ventricular systolic function to be within normal limits, ejection fraction per DAMARI 55% 5. Recurrent syncope 6. Non-STEMI this admission 7. Hyperlipidemia 8. History of coronary artery disease, status post coronary artery bypass grafting surgery in 1999 MARTE to LAD 9. Remote history of nicotine dependence quit smoking over 25 years ago, FEV1 54% 10. Diabetes history, HgbA1c 6.6%. Plan: 1. Continue to optimize medical management with aspirin, statin and beta robin. Increase beta robin as tolerated. 2. Encourage use of his incentive spirometry every hour while awake. 3. CTA of his thoracic aorta today. 4. Consult pulmonary critical care medicine for preoperative clearance for cardiac surgery. 5. Consult hematology, history of ITP status post splenectomy. 6. Consult infectious disease, history of splenectomy and patient reports that he feels like he has a parasitic infection. 7. Consult psychiatry, rule out delusions regarding systemic parasitic infection. 8. Once his preoperative testing has been obtained a STS risk score will be calculated and discussed with the patient by Dr. Barry Vela. 9. Medical management and other comorbidities per primary care service. 10. Once his preoperative workup is completed he will be scheduled for an urgent aortic valve replacement and myocardial revascularization surgery to be performed by Dr. Barry Vela. 11. Dr. Ervin has given dental clearance for cardiac surgery. 12. More recommendations to follow based on patient's clinical course. Time with Patient: Greater than 30
[2019-09-11] MEDS ORDERED: MD COMMUNICATION TO PHARMACY 1 EACH MISC PO ONE (10:33)
--- NOTE | 2019-09-11 11:15 | CT ---
EXAMINATION TYPE: CT angio chest DATE OF EXAM: 09/11/2019 COMPARISON: None HISTORY: 69-year-old male NSTEMI, Syncope, CTA thoracic aorta TECHNIQUE: Contiguous axial scanning of the chest performed without and with IV Contrast, patient inj ected with 100 ml mL of Isovue 370. Coronal/sagittal MIP reconstructions performed. 3-D reconstructio ns generated on a dedicated workstation. CT DLP: 1729 mGycm Automated exposure control for dose reduction was used. FINDINGS: Heart is enlarged with trace anterior basilar pericardial fluid. Extensive three-vessel coronary mari ry calcifications are present. Dense aortic valvular calcifications. Initial noncontrast images show no evidence for acute intramural hematoma. Aortic root normal caliber at 3.4 cm. Ascending aorta 3.3 cm. Conventional branching anatomy. Upper descending thoracic aorta 2.8 cm. No evidence for aortic dissection. No significant atherosclerotic calcifications are seen. Borderline and mildly enlarged mediastinal lymph nodes measure up to 1.0 cm right paratracheal, 1.1 c m precarinal, 1.2 cm left tracheobronchial angle, 9 mm bilateral hilar, and 1.5 cm subcarinal. Scattered mosaic attenuation and diffuse bronchial wall thickening. Some septal lines suggested in th e lower lungs. Scattered strandy areas of atelectasis are also noted. No james consolidation or pleur al effusion. Tiny hiatal hernia. Multiple splenules, possibly post traumatic sequela. 4 mm nonobstructive left r enal calculus BONES: Moderate degenerative disc disease mid to lower thoracic spine and visualized upper lumbar spi ne. IMPRESSION: 1. NO EVIDENCE FOR AORTIC ANEURYSM OR AORTIC DISSECTION. 2. EXTENSIVE THREE-VESSEL CORONARY ARTERY CALCIFICATIONS. ADDITIONAL DENSE AORTIC VALVULAR CALCIFICAT IONS. 3. BORDERLINE AND MILDLY ENLARGED MEDIASTINAL LYMPH NODES MEASURING UP TO 1.5 CM. FINDINGS MAY BE JAYE CTIVE/POST INFLAMMATORY. 3 MONTH FOLLOW-UP CT RECOMMENDED TO ENSURE STABILITY/RESOLUTION. 4. SCATTERED MOSAIC ATTENUATION AND DIFFUSE BRONCHIAL WALL THICKENING IN THE LUNGS. CORRELATE FOR POS SIBLE BRONCHITIS OR ASTHMA AND SMALL AIRWAYS DISEASE WITH AREAS OF AIR TRAPPING. 5. TINY HIATAL HERNIA AND A 4 MM NONOBSTRUCTIVE LEFT RENAL CALCULUS. MULTIPLE LEFT UPPER QUADRANT SPL ENULES, POSSIBLY CHRONIC POSTTRAUMATIC SEQUELA. CLINICALLY CORRELATE.
--- NOTE | 2019-09-11 11:40 | P.PN ---
Subjective Progress Note Date: 09/11/19 Principal diagnosis: Aortic stenosis This is a 69-year-old gentleman with history of aortic stenosis was admitted to the hospital with a witnessed syncope. He underwent a transesophageal echo cardiac gram which revealed severe aortic stenosis and a heart catheterization which revealed severe triple-vessel CAD was patent MARTE to LAD. He was seen this morning. Overall he is feeling better. No chest pain or chest discomfort or shortness of breath at this point. The plan is to proceed with open heart and possibly tomorrow. Objective - Vital Signs Vital signs: Vital Signs Temp 96.1 F L 09/11/19 08:00 Pulse 65 09/11/19 08:00 Resp 16 09/11/19 08:00 BP 104/56 09/11/19 08:00 Pulse Ox 93 L 09/11/19 08:00 Intake & Output 09/10/19 09/11/19 09/11/19 18:59 06:59 18:59 Intake Total 460 180 480 Balance 460 180 480 Weight 107.8 kg Intake: Oral 460 180 480 Other: Voiding Method Toilet Toilet Toilet # Voids 3 1 # Bowel Movements 1 - Constitutional General appearance: Present: no acute distress - Respiratory Respiratory: bilateral: CTA - Cardiovascular Rhythm: regular Heart sounds: normal: S1, S2 Abnormal Heart Sounds: Present: systolic murmur - Labs CBC & Chem 7: 09/11/19 06:00 09/11/19 06:00 Labs: Abnormal Lab Results - Last 24 Hours (Table) 09/10/19 09/10/19 09/10/19 Range/Units 06:29 11:49 17:09 WBC (3.8-10.6) k/uL Glucose (74-99) mg/dL POC Glucose (mg/dL) 111 H 133 H (75-99) mg/dL Hemoglobin A1c 6.6 H (4.0-6.0) % 09/10/19 09/11/19 09/11/19 Range/Units 21:00 06:00 06:00 WBC 10.8 H (3.8-10.6) k/uL Glucose 150 H (74-99) mg/dL POC Glucose (mg/dL) 193 H (75-99) mg/dL Hemoglobin A1c (4.0-6.0) % 09/11/19 Range/Units 07:09 WBC (3.8-10.6) k/uL Glucose (74-99) mg/dL POC Glucose (mg/dL) 141 H (75-99) mg/dL Hemoglobin A1c (4.0-6.0) % Microbiology - Last 24 Hours (Table) 09/10/19 08:20 Nasal Screen MRSA/MSSA - Preliminary Nasal Swab Assessment and Plan Assessment: Assessment #1 severe triple-vessel CAD #2 severe aortic stenosis Plan #1 continue current medical regimen #2 proceed with open heart surgery tomorrow
[2019-09-11 11:57] LABS: Glucose,Whole Blood 114 mg/dL (75-99)
--- NOTE | 2019-09-11 14:57 | P.CN ---
Psychiatric Consult - . Consult date: 09/11/19 Consult:: Reason for consultation: "hallucinations" Identifying data: Patient is a 69-year-old male who has no history of psychiatric diagnosis, but has history of multiple medical problems including coronary artery disease, diabetes, hyperlipidemia, and obstructive sleep apnea. The patient was seen while h was at medical floor. Chief complaint and history of present illness: The patient was admitted to medical service because of syncope related to cardiac problems and he is scheduled for heart surgery tomorrow. The reason for the consult that patient has reported he believes he has parasitic infection. Patient presents with organized thoughts and appropriate behavior was no symptoms or signs of psychosis or thought disturbances. Patient did not present hourly sign language interpreter preoccupied or responding to internal stimuli. According to the patient's and the treatment team there is no psychotic symptoms and depressed besides he reports he feels that has parasitic infection around his eyes. The patient admitted for having symptoms of acute chart pain in the skin around his eyes and feels like something is trying to penetrate the skin. He reports these symptoms a started more than 20 years ago and has been on and off with times get worse, and usually have severe itching accompanying the pain. Pt. reports has been seen by manager loss prevention and roustabout crew and has been told that nothing is wrong with him, but because the symptoms still coming and he never had any testing for his skin "biopsy", he still think he might have a skin condition or certain infection that not diagnosed. Pt reports soreness of skin accompanying the pain and these symptoms usually happen in the skin around his eyes, but it could happen at any other parts of his body. Patient denies symptoms of depression including depressed mood, hopelessness, helplessness, worthlessness, suicidal thoughts, suicidal intent, suicidal plan, diminished motivation, lack of interest, feeling guilty, crying spells, sleep disturbances, or appetite disturbances.He denies any symptoms of severe anxiety, racing thoughts, or panic attacks. Patient denies any manic symptoms including feeling inflated self-esteem, a euphoric mood, unusual increased level of energy, lack need to sleep due to increased activities, or impulsive and irrational behavior.He denies psychotic symptoms including auditory/visual hallucinations, paranoid ideation, delusions.Patient denies any symptoms of PTSD including nightmares or flashbacks. Past psychiatric history: Patient denies any history of previous psychiatric diagnosis, previous inpatient psychiatric hospitalization or taking any psychiatric medications. Substance use history: Quitted smoking more than 20 years ago. Denies using any alcohol or street drugs. Family history of psychiatric illness: Denies any family history of mental illness, suicide, or addiction problems. Brief social history: Currently lives with his , unemployed. Mental status examination: Appearance: The patient appears stated age, adequately groomed and dressed in hospital gown, no specific features. Gait/posture Patient was lying in bed Attitude and behavior: engaged, cooperative, eye contact. Motor activity: Normal psychomotor activity Speech: Normal rate, tone. Mood: Anxious Affect: Constricted Thought form: goal-directed, linear, coherent. Thought content: Non-delusional, denies suicidal thoughts, denies homicidal thoughts, denies intentions or plans. Perception: Denies any auditory or visual hallucinations Attention: No impairment. Orientation: Patient patient was fully oriented to time place person and situation. Insight: Patient has fair insight about his psychiatric disorder. Judgment: Patient has fair judgment about his psychiatric treatment. Assessment: No [place] I diagnosis. Rule out psychosomatic disorder. Recommendations: Addressed and ensured patient's safety, patient i not actively suicidal, and no active plan or intent of suicide. Patient is psychiatrically stable, and does not meet the criteria for psychiatric hospitalization. At this time there is no need for further follow-up by psychiatric team. Medication management: No medication recommended at this time. Disposition, aftercare follow-up and referral requests to be communicated to the unit social service director: Refer the patient to roustabout crew for further assessment of his skin condition. Patient might benefit from referral to counselling/therapy for further assessment of psychosomatic disorder. Discussed the treatment plan with the requesting physician/service. Psycho-education was provided to the patient. Thank you for permitting me to assist in this patient's treatment. Please call psychiatry department if you have any question or need further help with this case. 09/11/19 14:41
--- NOTE | 2019-09-11 15:46 | P.PN ---
Subjective Progress Note Date: 09/11/19 Principal diagnosis: 69-year-old male with a past medical history of coronary artery disease status post CABG, aortic stenosis, type 2 diabetes mellitus, hyperlipidemia, obstructive sleep apnea on CPAP coming to the hospital with a chief complaint of syncope. Patient states for the past 1-2 months he has been having dizziness and feels lightheaded. Yesterday he felt dizzy and passed out for almost 5-10 minutes. Patient denies having any loss of bowel or bladder control. No tongue bites. He denies having any chest pain or palpitations. Patient states that he gets short of breath on taking a flight of stairs in the recent months. Patient has, motor that is consistent with severe aortic stenosis, he states that he has this murmur for a long period of time. Patient denies having any fevers chills or rigors. No cough or difficulty in breathing. No dysuria or hematuria. No alcohol pain nausea vomiting or diarrhea. No weakness of his extremities. No headaches or blurring of vision. No speech abnormalities. In the emergency room patient had a CT of the head that was showing no acute intracranial process. He also had a chest x-ray that is within normal limits and an EKG showing normal sinus rhythm. There is mild elevation of troponins at 0.047. The patient has been admitted for further management. On 09/08/2019 - patient is sitting up in a chair by the bedside comfortably. He had an episode of dizziness this morning when he tried to get from the room to his bathroom. He did not have a fall. His headaches are much better. He denies having any chest pain. Mild shortness of breath. No cough. He denies having any fevers chills or rigors. No lower extremity swelling. Patient denies having any abdominal pain. Denies noticing any bleeding from any site. Patient's vitals have been stable. No acute events reported by nursing staff. Patient had an echocardiogram done this morning showing severe aortic stenosis. 09/09/2019 Patient will undergo cardiac catheterization and DAMARI today. Further management and plan depending on the DAMARI results of recent cardiac catheterization findings. Patient is complaining of mild lightheadedness no other significant symptoms at this time 09/10/2019 Patient is clinically doing well is found that there was a disease patient is being evaluated for CABG and aortic valve replacement. Patient is alert and oriented 3 to me but patient apparently was having some hallucinations which I believe secondary to benzodiazepines which were discontinued and Dilaudid will be discontinued and patient will need some nonpharmacological measures including ambulating the hallways will open of the windows and I believe this is secondary to sundowners and due to prolonged hospitalization Constitutional: Denied any fatigue denied any fever. Cardio vascular: denied any chest pain, palpitations Gastrointestinal denied any nausea vomiting Pulmonary: Denied any shortness of breath cough Neurologic denied any new focal deficits All inpatient medications were reviewed and appropriate changes in these medi cations as dictated in the interval history and assessment and plan. 09/11/2019 Patient is sitting up in the chair in no acute distress with no acute overnight issues. Cardiology and cardiothoracic surgery is following closely. Patient is currently in the screening process of open-heart surgery. Patient is awaiting to undergo open-heart surgery possibly tomorrow per the patient. Patient denies any chest pain, shortness of breath, or palpitations. Patient is afebrile. Patient denies any nausea or vomiting and has been tolerating diet. Patient states that he has been reading up on the surgery from the information that was provided by cardiothoracic surgery. Currently patient is not having any hallucinations and was seen by psychiatry and not requiring any inpatient hospitalization or medication adjustments at this time. Will continue to monitor closely. Objective - Vital Signs Vital signs: Vital Signs Temp 96.1 F L 09/11/19 08:00 Pulse 67 09/11/19 12:00 Resp 16 09/11/19 12:00 BP 126/77 09/11/19 12:00 Pulse Ox 97 09/11/19 12:00 Intake & Output 09/10/19 09/11/19 09/11/19 18:59 06:59 18:59 Intake Total 460 180 480 Balance 460 180 480 Weight 107.8 kg Intake: Oral 460 180 480 Other: Voiding Method Toilet Toilet Toilet # Voids 3 1 # Bowel Movements 1 - Exam GENERAL: The patient is sitting up in the chair, alert and oriented x3, not in any acute distress. Well developed, well nourished. HEENT: Pupils are round and equally reacting to light. EOMI. No scleral icterus. No conjunctival pallor. Normocephalic, atraumatic. No pharyngeal erythema. No thyromegaly. CARDIOVASCULAR: S1 and S2 present. No rubs, or gallops. systolic murmur and aortic area PULMONARY: Chest is clear to auscultation, no wheezing or crackles. ABDOMEN: Soft, nontender, nondistended, normoactive bowel sounds. No palpable organomegaly. MUSCULOSKELETAL: No joint swelling or deformity. EXTREMITIES: No cyanosis, clubbing, or pedal edema. NEUROLOGICAL: Gross neurological examination did not reveal any focal deficits. SKIN: No rashes. - Labs CBC & Chem 7: 09/11/19 06:00 09/11/19 06:00 Labs: Abnormal Lab Results - Last 24 Hours (Table) 09/10/19 09/10/19 09/11/19 Range/Units 17:09 21:00 06:00 WBC 10.8 H (3.8-10.6) k/uL Glucose (74-99) mg/dL POC Glucose (mg/dL) 133 H 193 H (75-99) mg/dL Crossmatch 09/11/19 09/11/19 09/11/19 Range/Units 06:00 07:09 11:31 WBC (3.8-10.6) k/uL Glucose 150 H (74-99) mg/dL POC Glucose (mg/dL) 141 H (75-99) mg/dL Crossmatch See Detail 09/11/19 Range/Units 11:47 WBC (3.8-10.6) k/uL Glucose (74-99) mg/dL POC Glucose (mg/dL) 114 H (75-99) mg/dL Crossmatch Microbiology - Last 24 Hours (Table) 09/10/19 08:20 Nasal Screen MRSA/MSSA - Preliminary Nasal Swab Assessment and Plan Assessment: -syncope possibly secondary to aortic stenosis, cardiac catheterization showed triple vessel disease patient probably will undergo CABG and aortic valve replacement. -Mild hallucinations and confusion probably related to delirium from prolonged hospitalization further intervention as mentioned above; patient was seen by psychiatry and cleared and may follow-up in the outpatient setting as needed - non-ST elevation myocardial infarction with triple vessel disease -Coronary artery disease with previous CABG -Type 2 diabetes mellitus -Hypertension -Hyperlipidemia -Obstructive sleep apnea on CPAP machine.
[2019-09-11 17:01] LABS: Glucose,Whole Blood 136 mg/dL (75-99)
--- NOTE | 2019-09-11 19:00 | CONS ---
CONSULTATION PULMONARY/CRITICAL CARE CONSULTATION: DATE OF SERVICE: 09/11/2019 This is a patient who was admitted through the emergency department on September 06. He has a history of coronary artery disease and had bypass grafting in 1999. Anyway, the patient is currently scheduled for bypass grafting tomorrow as well as aortic valve replacement for aortic stenosis. We were asked to see the patient preoperatively for our evaluation. He was a smoker in the past; does not smoke currently. He did have pulmonary function tests showing an FEV1% of 54. This puts him in the category of moderate to severe COPD. He does not take any oxygen at home. He does use any inhalers or updrafts. Anyway, the patient is very stable. He was to be done on Sunday, but apparently they moved the surgery up to tomorrow. CURRENT HOME MEDICATIONS: His current home medications include metformin, calcium carbonate, vitamin D3, gelatin, Krill oil, magnesium, milk thistle, coenzyme Q, omega-3 fatty acids and vitamin B complex. ALLERGIES: DENIED. MEDICAL AND SURGICAL HISTORY: His medical history includes primarily diabetes and CAD with previous bypass grafting. Previous surgery was also done by Dr. Alba in the past. Surgical history includes in addition appendectomy, splenectomy, sinus surgery, jaw surgery and some other minor procedures. SOCIAL HISTORY: Positive for previous tobacco use. He does not smoke currently. He does have some underlying COPD as reflected in his lung function. FAMILY HISTORY: Family history is unremarkable. Both mother and father apparently were relatively healthy, according to him. Currently he is resting comfortably. He has no complaints. He denies any chest pain or chest discomfort. His cardiac catheterization that was done on September [address] Post showed severe triple-vessel coronary artery disease, patent MARTE to LAD bypass, severe disease involving the left circumflex coronary artery, and critical disease involving the right coronary artery. In addition, an echocardiogram revealed severe aortic stenosis. The gradient across the aortic valve was quite high. REVIEW OF SYSTEMS: CONSTITUTIONAL: Negative. NEUROLOGIC: Negative. HEENT: Negative. CARDIOVASCULAR: Negative. PULMONARY: Shortness of breath. GI: Negative. : Negative. RHEUMATOLOGIC: Negative. IMMUNOLOGIC: Negative. ENDOCRINOLOGIC: Negative. DERMATOLOGIC: Negative. PHYSICAL EXAMINATION: VITAL SIGNS: Current vital signs are reviewed. Temperature is 96.1, heart rate 67, respiratory rate 16, blood pressure 126/77, mean 93, room-air saturation 97%. GENERAL APPEARANCE: Appears in no acute distress. HEENT: HEENT examination is grossly unremarkable. Mucous membranes are moist. No oral lesions. NECK: Supple. Full range of motion. No adenopathy or thyromegaly. Neck veins are flat. CARDIOVASCULAR: Cardiovascular examination reveals regular rhythm and rate. S1, S2 normal. There is a very harsh systolic murmur. It is probably grade 3 to 4 over 6. It is consistent with aortic stenosis. LUNGS: Lungs reveal mostly clear breath sounds. No wheezes, rhonchi or crackles. Breath sounds are equal bilaterally. ABDOMEN: Soft. Bowel sounds are heard. EXTREMITIES: Extremities are intact. No cyanosis, clubbing or edema. SKIN: Without rash. NEUROLOGIC: Neurologic examination is brief but nonfocal. LABS/IMAGING: White count 10.8, hemoglobin 14.2, hematocrit 42.5, platelet count 191,000. Sodium 141, potassium 4.6, chloride 106, CO2 29, anion gap 6. BUN and creatinine were 13 and 0.84. Calcium 9.2. The rest of his data is reviewed, including a chest x-ray done on the day of admission which showed only cardiomegaly. Medications are reviewed. Microbiology, including nasal screen, thus far negative. ASSESSMENT: 1. Severe triple-vessel coronary artery disease with severe aortic stenosis. 2. Previous bypass grafting done [place] [address] Alba. 3. History of severe aortic stenosis. 4. Diabetes mellitus. 5. Previous tobacco use, with moderately severe chronic obstructive pulmonary disease. PLAN: From our perspective, the patient is cleared for surgery. We do talk about him using breathing medications after surgery. That will be both on the ventilator and once he is extubated. We will hopefully get the patient extubated within 6 hours. We talked about the importance of deep breathing, coughing, clearing his secretions and use of the incentive spirometer hourly. Additional recommendations and suggestions are forthcoming. Prognosis is guarded. MMODL / IJN: [id number] /
--- NOTE | 2019-09-11 19:11 | P.PN ---
Progress Note - Text Progress Note Date: 09/11/19 Asked to see pt for cardiac surgical clearance. I was unable to see pt but, reviewed history from chart and reviewed with [employer]. Pt had splenectomy prior to 2013-that is the earliest documentation in this EMR and splenectomy is documented. His platelet counts have been normal in this medical record since that time and are currently normal. He is cleared for his cardiac procedures from a Hematology/ITP standpoint. Will do formal consult AMAN. Will monitor platelet counts while i npatient. Thank you for consult
[2019-09-11 20:46] LABS: Glucose,Whole Blood 163 mg/dL (75-99)
[2019-09-12] MEDS ORDERED: ALBUMIN HUMAN 25% 50 ML in EMPTY BAG 1 BAG IVPB ONE (05:00)
[2019-09-12] MEDS ORDERED: DILTIAZEM 125 MG in SODIUM CHLORIDE 0.9% 100 ML IV SCH (05:00)
[2019-09-12] MEDS ORDERED: MANNITOL 25% 12.5 GM/50 ML VIAL IV ONE ×2 (05:00)
[2019-09-12] MEDS ORDERED: ATORVASTATIN 10 MG TAB PO ONE (05:00)
[2019-09-12] MEDS ORDERED: MAGNESIUM SULFATE SYG 4.06 MEQ/ML SYRINGE IV ONE (05:00)
[2019-09-12] MEDS ORDERED: HEPARIN SODIUM 1,000 UN/ML (10ML VL) IV ONE (05:00)
[2019-09-12] MEDS ORDERED: ASPIRIN 325 MG TAB PO ONE (05:00)
[2019-09-12] MEDS ORDERED: PAPAVERINE 360 MG in SODIUM CHLORIDE 0.9% 90 ML IV ONE (05:00)
[2019-09-12] MEDS ORDERED: DEXTROSE 5% IN WATER 1,000 ML with POTASSIUM CHLORIDE 25 MEQ, SODIUM CHLORIDE 2.5MEQ/ML... IV SCH ×6 (05:00)
[2019-09-12] MEDS ORDERED: PROTAMINE SULFATE 250 MG in EMPTY BAG 1 BAG IV ONE (05:00)
[2019-09-12] MEDS ORDERED: ALBUMIN HUMAN 5% 500 ML in EMPTY BAG 1 BAG IVPB ONE ×6 (05:00)
[2019-09-12] MEDS ORDERED: ceFAZolin 1,000 MG in SODIUM CHLORIDE 0.9% IRRIGATIO 1,000 ML IRRIGATION ONE (05:00)
[2019-09-12] MEDS ORDERED: NITROGLYCERIN-D5W PMX 25 MG/250 ML BTL IV ONE (05:00)
[2019-09-12] MEDS ORDERED: HEPARIN SODIUM,PORCINE 5,000 UNIT in SODIUM CHLORIDE 0.9% 500 ML 500 ML IV ONE (05:00)
[2019-09-12] MEDS ORDERED: ceFAZolin 2,000 MG in SODIUM CHLORIDE 0.9% 30 ML IVPB ONE (05:00)
[2019-09-12] MEDS ORDERED: TRANEXAMIC ACID 2,000 MG in SODIUM CHLORIDE 0.9% 80 ML IV ONE ×4 (05:00)
[2019-09-12] MEDS ORDERED: SODIUM CHLORIDE 0.9% 1,000 ML IV SCH ×2 (05:00→18:45)
[2019-09-12] MEDS ORDERED: CALCIUM CHLORIDE 100 MG/ML 10 ML SYRINGE IVP ONE (05:00)
[2019-09-12] MEDS ORDERED: CLEVIDIPINE BUTYRATE 25 MG in EMPTY BAG 1 BAG IV SCH (05:00)
[2019-09-12] MEDS ORDERED: NOREPINEPHRINE 4 MG in SODIUM CHLORIDE 0.9% 250 ML IV SCH ×2 (05:00→18:45)
[2019-09-12] MEDS ORDERED: CHLORHEXIDINE GLUCONATE 15 ML CUP MUCOUS MEM ONE (05:00)
[2019-09-12] MEDS ORDERED: PHENYLEPHRINE 10 MG/ML VIAL IV ONE (05:00)
[2019-09-12] MEDS ORDERED: PROPOFOL 1,000 MG in EMPTY BAG 1 BAG IV PRN (05:00)
[2019-09-12] MEDS ORDERED: PROTAMINE SULFATE 10 MG/ML 25 ML VIAL IV ONE ×2 (05:00→07:54)
[2019-09-12] MEDS ORDERED: SODIUM BICARB 8.4% 50 ML SYR (1 MEQ/ML) IV ONE (05:00)
[2019-09-12] MEDS ORDERED: ceFAZolin 2 GM in SODIUM CHLORIDE 0.9% 30 ML IVPB ONE (05:00)
[2019-09-12] MEDS ORDERED: PHENYLEPHRINE 40 MG in SODIUM CHLORIDE 0.9% 250 ML IV ONE (05:00)
[2019-09-12] MEDS ORDERED: METOPROLOL TARTRATE 12.5 MG TAB PO ONE (05:00)
[2019-09-12] MEDS ORDERED: DEXTROSE 5% IN WATER 1,000 ML with POTASSIUM CHLORIDE 110 MEQ, MAGNESIUM SULFATE 16 MEQ... IV SCH ×5 (05:00)
[2019-09-12 05:19] LABS: Basophils # (A) 0.3 k/uL (0-0.2); Basophils % (A) 3 %; Eosinophils # (A) 0.7 k/uL (0-0.7); Eosinophils % (A) 7 %; HGB 14.7 gm/dL (13.0-17.5); Lymphocytes # (A) 2.4 k/uL (1.0-4.8); Lymphocytes % (A) 22 %; MCH 30.2 pg (25.0-35.0); MCHC 31.9 g/dL (31.0-37.0); MCV 94.8 fL (80.0-100.0); Monocytes # (A) 0.8 k/uL (0-1.0); Monocytes % (A) 8 %; Neutrophils # (A) 6.3 k/uL (1.3-7.7); Neutrophils % (A) 59 %; Platelet Count 210 k/uL (150-450); RBC 4.85 m/uL (4.30-5.90); RDW 12.9 % (11.5-15.5); WBC 10.8 k/uL (3.8-10.6)
[2019-09-12 05:39] LABS: ALT 42 U/L (21-72); AST 30 U/L (17-59); African American GFR (CKD) >90 (>60 ml/min/1.73 sqM); Albumin 3.7 g/dL (3.5-5.0); Alkaline Phosphatase 54 U/L (38-126); Anion Gap 5 mmol/L; Blood Urea Nitrogen 12 mg/dL (9-20); Calcium 9.2 mg/dL (8.4-10.2); Carbon Dioxide 27 mmol/L (22-30); Chloride 108 mmol/L (98-107); Glucose 158 mg/dL (74-99); Non-African American GFR(CKD) >90 (>60 ml/min/1.73 sqM); Potassium 4.6 mmol/L (3.5-5.1); Sodium 140 mmol/L (137-145); Total Bilirubin 0.5 mg/dL (0.2-1.3); Total Protein 6.5 g/dL (6.3-8.2)
[2019-09-12 06:12] LABS: Glucose,Whole Blood 145 mg/dL (75-99)
[2019-09-12] MEDS ORDERED: IV FLUID CONTINUATION 1,000 ML IV ONE (06:42)
[2019-09-12] MEDS ORDERED: NITROGLYCERIN-D5W PMX 50 MG/250 ML BOTTLE IV ONE (07:54)
[2019-09-12] MEDS ORDERED: PROPOFOL 10 MG/ML 20 ML VIAL IV ONE (07:54)
[2019-09-12] MEDS ORDERED: MAGNESIUM SULFATE 4 MEQ/ML 10ML VIAL ONE (07:54)
[2019-09-12] MEDS ORDERED: SODIUM CHLORIDE 0.9% IRRIG 1,000 ML BTL IRRIGATION ONE (07:54)
[2019-09-12] MEDS ORDERED: INSULIN REGULAR 100 UNIT/ML VIAL ONE (07:54)
[2019-09-12] MEDS ORDERED: fentaNYL (PF) 50 MCG/ML 2 ML AMP ONE (07:54)
[2019-09-12] MEDS ORDERED: SODIUM CHLORIDE 0.9% 250 ML BAG ONE (07:54)
[2019-09-12] MEDS ORDERED: TRANEXAMIC ACID 1,000 MG/10 ML VIAL ONE (07:54)
[2019-09-12] MEDS ORDERED: ELECTROLYTE-R (PH 7.4) 1,000 ML IV.SOLN IV ONE (07:54)
[2019-09-12] MEDS ORDERED: MIDAZOLAM 2 MG/2 ML VIAL ONE (07:54)
[2019-09-12] MEDS ORDERED: LIDOCAINE 2% SYG (PF) 100 MG/5 ML ONE (07:54)
[2019-09-12] MEDS ORDERED: HEPARIN SODIUM,PORCINE 10,000 UNIT/ML 1 ML VIAL ONE (07:54)
[2019-09-12] MEDS ORDERED: VECURONIUM 10 MG VIAL IV ONE (07:54)
[2019-09-12] MEDS ORDERED: fentaNYL (PF) 50 MCG/ML 50 ML VIAL ONE (07:54)
[2019-09-12 08:55] LABS: ABG Base Excess 2.2 mmol/L; ABG Glucose Whole Blood 131 mg/dL (75-99); ABG HCO3 28 mmol/L (21-25); ABG Hematocrit 44 % (34.0-46.0); ABG Ionized Calcium 4.7 mg/dL (4.5-5.3); ABG Lactic Acid Whole Blood 0.7 mmol/L (0.5-1.6); ABG Oxygen Saturation 95.8 % (94-97); ABG PCO2 48 mmHg (35-45); ABG PH 7.38 (7.35-7.45); ABG PO2 77 mmHg (83-108); ABG Potassium Whole Blood 4.3 mmol/L (3.4-4.5); ABG Sodium Whole Blood 142 mmol/L (135-146); ABG TCO2 30 mmol/L (19-24)
[2019-09-12 11:34] LABS: ABG Base Excess 1.6 mmol/L; ABG Glucose Whole Blood 146 mg/dL (75-99); ABG HCO3 28 mmol/L (21-25); ABG Hematocrit 43 % (34.0-46.0); ABG Ionized Calcium 4.6 mg/dL (4.5-5.3); ABG Lactic Acid Whole Blood 0.8 mmol/L (0.5-1.6); ABG Oxygen Saturation 98.5 % (94-97); ABG PCO2 51 mmHg (35-45); ABG PH 7.35 (7.35-7.45); ABG PO2 123 mmHg (83-108); ABG Potassium Whole Blood 4.5 mmol/L (3.4-4.5); ABG Sodium Whole Blood 141 mmol/L (135-146); ABG TCO2 30 mmol/L (19-24)
[2019-09-12 12:17] LABS: ABG Base Excess 0.8 mmol/L; ABG Glucose Whole Blood 147 mg/dL (75-99); ABG HCO3 25 mmol/L (21-25); ABG Hematocrit 34 % (34.0-46.0); ABG Ionized Calcium 4.1 mg/dL (4.5-5.3); ABG Lactic Acid Whole Blood 1.1 mmol/L (0.5-1.6); ABG PCO2 38 mmHg (35-45); ABG PH 7.43 (7.35-7.45); ABG Sodium Whole Blood 138 mmol/L (135-146); ABG TCO2 26 mmol/L (19-24)
[2019-09-12 12:45] LABS: ABG Base Excess 1.1 mmol/L; ABG Glucose Whole Blood 160 mg/dL (75-99); ABG HCO3 26 mmol/L (21-25); ABG Hematocrit 35 % (34.0-46.0); ABG Ionized Calcium 4.3 mg/dL (4.5-5.3); ABG Lactic Acid Whole Blood 1.3 mmol/L (0.5-1.6); ABG Oxygen Saturation 99.8 % (94-97); ABG PCO2 43 mmHg (35-45); ABG PO2 315 mmHg (83-108); ABG Potassium Whole Blood 4.4 mmol/L (3.4-4.5); ABG Sodium Whole Blood 139 mmol/L (135-146); ABG TCO2 28 mmol/L (19-24)
[2019-09-12 13:18] LABS: ABG Base Excess 0.6 mmol/L; ABG Glucose Whole Blood 226 mg/dL (75-99); ABG HCO3 26 mmol/L (21-25); ABG Hematocrit 32 % (34.0-46.0); ABG Ionized Calcium 4.2 mg/dL (4.5-5.3); ABG Lactic Acid Whole Blood 1.6 mmol/L (0.5-1.6); ABG PCO2 43 mmHg (35-45); ABG PH 7.39 (7.35-7.45); ABG PO2 289 mmHg (83-108); ABG Sodium Whole Blood 137 mmol/L (135-146); ABG TCO2 27 mmol/L (19-24)
[2019-09-12 14:02] LABS: ABG Base Excess -1.2 mmol/L; ABG Glucose Whole Blood 214 mg/dL (75-99); ABG HCO3 25 mmol/L (21-25); ABG Hematocrit 30 % (34.0-46.0); ABG Ionized Calcium 4.2 mg/dL (4.5-5.3); ABG Oxygen Saturation 99.8 % (94-97); ABG PCO2 44 mmHg (35-45); ABG PH 7.35 (7.35-7.45); ABG PO2 248 mmHg (83-108); ABG Potassium Whole Blood 4.6 mmol/L (3.4-4.5); ABG Sodium Whole Blood 138 mmol/L (135-146); ABG TCO2 26 mmol/L (19-24)
[2019-09-12 14:43] LABS: ABG Base Excess -3.5 mmol/L; ABG Glucose Whole Blood 202 mg/dL (75-99); ABG HCO3 25 mmol/L (21-25); ABG Hematocrit 30 % (34.0-46.0); ABG Ionized Calcium 4.2 mg/dL (4.5-5.3); ABG Oxygen Saturation 99.1 % (94-97); ABG PCO2 61 mmHg (35-45); ABG PH 7.22 (7.35-7.45); ABG PO2 179 mmHg (83-108); ABG Potassium Whole Blood 4.3 mmol/L (3.4-4.5); ABG Sodium Whole Blood 140 mmol/L (135-146); ABG TCO2 27 mmol/L (19-24)
[2019-09-12 15:00] LABS: ABG Base Excess -3.3 mmol/L; ABG Glucose Whole Blood 211 mg/dL (75-99); ABG HCO3 24 mmol/L (21-25); ABG Hematocrit 27 % (34.0-46.0); ABG Ionized Calcium 4.1 mg/dL (4.5-5.3); ABG PCO2 53 mmHg (35-45); ABG PH 7.26 (7.35-7.45); ABG Potassium Whole Blood 4.6 mmol/L (3.4-4.5); ABG Sodium Whole Blood 137 mmol/L (135-146); ABG TCO2 25 mmol/L (19-24)
[2019-09-12 15:45] LABS: ABG Base Excess -4.7 mmol/L; ABG Glucose Whole Blood 201 mg/dL (75-99); ABG HCO3 21 mmol/L (21-25); ABG Ionized Calcium 3.9 mg/dL (4.5-5.3); ABG PCO2 39 mmHg (35-45); ABG PH 7.34 (7.35-7.45); ABG PO2 392 mmHg (83-108); ABG Potassium Whole Blood 4.4 mmol/L (3.4-4.5); ABG Sodium Whole Blood 138 mmol/L (135-146); ABG TCO2 22 mmol/L (19-24)
[2019-09-12 16:04] LABS: ABG Base Excess -3.6 mmol/L; ABG Glucose Whole Blood 187 mg/dL (75-99); ABG HCO3 22 mmol/L (21-25); ABG Ionized Calcium 4.4 mg/dL (4.5-5.3); ABG Oxygen Saturation 99.9 % (94-97); ABG PCO2 39 mmHg (35-45); ABG PH 7.36 (7.35-7.45); ABG PO2 262 mmHg (83-108); ABG Potassium Whole Blood 4.1 mmol/L (3.4-4.5); ABG Sodium Whole Blood 140 mmol/L (135-146); ABG TCO2 23 mmol/L (19-24)
--- NOTE | 2019-09-12 16:20 | P.PN ---
Progress Note - Text Progress Note Date: 09/12/19 attempted to do consult on patient today, he is still in surgery. Discussed the case with the RN. CBC will be ordered daily, report any abnormal platelet counts to hematology
[2019-09-12 17:14] LABS: ABG Glucose Whole Blood 151 mg/dL (75-99); ABG HCO3 23 mmol/L (21-25); ABG Ionized Calcium 3.7 mg/dL (4.5-5.3); ABG Oxygen Saturation 99.9 % (94-97); ABG PCO2 42 mmHg (35-45); ABG PH 7.35 (7.35-7.45); ABG PO2 221 mmHg (83-108); ABG Potassium Whole Blood 3.7 mmol/L (3.4-4.5); ABG Sodium Whole Blood 144 mmol/L (135-146); ABG TCO2 25 mmol/L (19-24)
[2019-09-12 17:23] LABS: ABG PO2 >420 mmHg (83-108)
[2019-09-12 17:25] LABS: ABG Lactic Acid Whole Blood 2.4 mmol/L (0.5-1.6)
[2019-09-12 17:27] LABS: ABG Lactic Acid Whole Blood 2.8 mmol/L (0.5-1.6)
[2019-09-12 17:28] LABS: ABG Lactic Acid Whole Blood 2.9 mmol/L (0.5-1.6); ABG PO2 >420 mmHg (83-108)
[2019-09-12 17:30] LABS: ABG Lactic Acid Whole Blood 5.9 mmol/L (0.5-1.6)
[2019-09-12 17:30] LABS: ABG Hematocrit 24 % (34.0-46.0); ABG Lactic Acid Whole Blood 4.4 mmol/L (0.5-1.6)
[2019-09-12 17:31] LABS: ABG Hematocrit 21 % (34.0-46.0); ABG Lactic Acid Whole Blood 5.2 mmol/L (0.5-1.6)
[2019-09-12 17:31] LABS: ABG Hematocrit 22 % (34.0-46.0)
[2019-09-12 18:31] LABS: ABG Glucose Whole Blood 117 mg/dL (75-99); ABG HCO3 24 mmol/L (21-25); ABG Ionized Calcium 4.2 mg/dL (4.5-5.3); ABG Oxygen Saturation 99.7 % (94-97); ABG PCO2 39 mmHg (35-45); ABG PH 7.39 (7.35-7.45); ABG PO2 205 mmHg (83-108); ABG Potassium Whole Blood 3.9 mmol/L (3.4-4.5); ABG Sodium Whole Blood 145 mmol/L (135-146); ABG TCO2 25 mmol/L (19-24)
[2019-09-12 18:37] LABS: ABG Hematocrit 24 % (34.0-46.0)
[2019-09-12] MEDS ORDERED: Phosphorus Replacement Protoco 1 EACH MISC MISCELLANE PRN (18:39)
[2019-09-12] MEDS ORDERED: AMIODARONE 300 MG in DEXTROSE 5% IN WATER 250 ML IV PRN ×2 (18:39)
[2019-09-12] MEDS ORDERED: Potassium Replacement Protocol 1 EACH MISC MISCELLANE PRN (18:39)
[2019-09-12] MEDS ORDERED: AMIODARONE 360 MG in DEXTROSE 5% IN WATER 200 ML IV PRN ×2 (18:39)
[2019-09-12] MEDS ORDERED: Magnesium Replacement Protocol 1 EACH MISC MISCELLANE PRN (18:39)
[2019-09-12] MEDS ORDERED: BENZOCAINE/MENTHOL LOZENG 1 EACH LOZENGE MUCOUS MEM PRN (18:39)
[2019-09-12] MEDS ORDERED: CALCIUM GLUCONATE 2 GM in SODIUM CHLORIDE 0.9% 100 ML IVPB PRN (18:39)
[2019-09-12] MEDS ORDERED: DEXTROSE 5% IN WATER 100 ML with AMIODARONE 150 MG IV PRN (18:39)
[2019-09-12] MEDS ORDERED: ALBUMIN HUMAN 5% 250 ML in EMPTY BAG 1 BAG IVPB PRN (18:39)
[2019-09-12] MEDS ORDERED: MORPHINE SULFATE 2 MG/ML SYRINGE IVP PRN (18:39)
[2019-09-12] MEDS ORDERED: IPRATROPIUM-ALBUTEROL 3 ML NEB INHALATION PRN (18:39)
[2019-09-12] MEDS ORDERED: METOCLOPRAMIDE 5 MG/ML 2 ML VIAL IVP PRN (18:39)
--- NOTE | 2019-09-12 18:43 | P.PN ---
Progress Note - Text Progress Note Date: 09/12/19 Patient was taken to surgery earlier this morning and unable to assess the patient. Will continue to follow and monitor closely once patient has returned from surgery.
[2019-09-12] MEDS: PROPOFOL 1,000 MG in EMPTY BAG 1 BAG IV SCH (19:00)
[2019-09-12] MEDS: INSULIN REGULAR 100 UNIT in SODIUM CHLORIDE 0.9% 100 ML IV SCH (19:00)
[2019-09-12] MEDS: NITROGLYCERIN-D5W PMX 50 MG in DEXTROSE/WATER 1 250ML.BAG IV SCH (19:00)
[2019-09-12] MEDS: MILRINONE-D5W PMX 20 MG in DEXTROSE/WATER 1 100ML.BAG IV SCH ×2 (19:00→23:11)
[2019-09-12 19:24] LABS: Glucose,Whole Blood 145 mg/dL (75-99)
[2019-09-12 19:25] LABS: ABG HCO3 23 mmol/L (21-25); ABG Oxygen Saturation 99.6 % (94-97); ABG PCO2 50 mmHg (35-45); ABG PH 7.27 (7.35-7.45); ABG PO2 267 mmHg (83-108); ABG TCO2 24 mmol/L (19-24)
[2019-09-12] MEDS: IPRATROPIUM-ALBUTEROL 3 ML NEB INHALATION SCH ×3 (19:28→23:06)
[2019-09-12 19:33] LABS: Ionized Calcium 4.2 mg/dL (4.5-5.3)
[2019-09-12 19:41] LABS: ALT 24 U/L (21-72); AST 42 U/L (17-59); African American GFR (CKD) >90 (>60 ml/min/1.73 sqM); Albumin 3.1 g/dL (3.5-5.0); Alkaline Phosphatase <20 U/L (38-126); Anion Gap 8 mmol/L; Blood Urea Nitrogen 11 mg/dL (9-20); Calcium 7.1 mg/dL (8.4-10.2); Carbon Dioxide 24 mmol/L (22-30); Chloride 111 mmol/L (98-107); Glucose 130 mg/dL (74-99); Non-African American GFR(CKD) >90 (>60 ml/min/1.73 sqM); Potassium 3.9 mmol/L (3.5-5.1); Sodium 143 mmol/L (137-145); Total Bilirubin 1.4 mg/dL (0.2-1.3); Total Protein 4.7 g/dL (6.3-8.2)
[2019-09-12] MEDS ORDERED: CALCIUM GLUCONATE 1 GM in SODIUM CHLORIDE 0.9% 100 ML IVPB ONE (19:44)
[2019-09-12 19:54] LABS: INR 1.2 (<1.2)
[2019-09-12 19:55] LABS: Partial Thromboplastin Time 32.9 sec (22.0-30.0); Prothrombin Time 12.5 sec (9.0-12.0)
[2019-09-12 19:59] LABS: Glucose,Whole Blood 144 mg/dL (75-99)
[2019-09-12 20:03] LABS: Allen Test Performed? no
--- NOTE | 2019-09-12 20:06 | XR ---
EXAMINATION: XR chest 1V portable DATE AND TIME: 09/12/2019 7:24 PM CLINICAL INDICATION: PH[facility]; Post Operative Cardiac Surgery TECHNIQUE: AP portable supine COMPARISON: 09/06/2019 radiograph FINDINGS: Sternal sutures and mediastinal clips noted. ET tube tip superimposed over the mid trachea. NG tube superimposed over the expected position of the thoracic esophagus, with the tip of the NG tub e superimposed over the expected position of the distal thoracic esophagus. NG tube may be better placed 12 cm distally. Right IJ Bradner tip superimposed over the RPA. Mediastinal drains and two left chest tubes noted. The the right lung appears well-expanded and clear. The left lung shows scattered ill-defined bands o f added opacity throughout the left mid and lower lung zone consistent with noninflation. There is no mediastinal shift. There are spaces appear negative as seen on this supine radiograph. No definite visualized abnormal g as collections. Bilateral enlarged cardiac silhouette redemonstrated. Bones and soft tissues without acute findings. IMPRESSION: 1. Post operative cardiac surgery oral AP supine chest radiograph. 2. NG tube comments. 3. Partial airlessness of the left mid and lower lung zones.
[2019-09-12 20:14] LABS: Basophils # (A) 0.1 k/uL (0-0.2); Basophils % (A) 1 %; Eosinophils % (A) 0 %; HCT 22.1 % (39.0-53.0); Lymphocytes % (A) 9 %; MCH 32.9 pg (25.0-35.0); MCV 96.6 fL (80.0-100.0); Mean Platelet Volume 7.9; Monocytes % (A) 9 %; Neutrophils # (A) 8.2 k/uL (1.3-7.7); Neutrophils % (A) 79 %; RBC 2.29 m/uL (4.30-5.90); RDW 13.5 % (11.5-15.5); WBC 10.3 k/uL (3.8-10.6)
[2019-09-12 20:15] LABS: Glucose,Whole Blood 148 mg/dL (75-99)
[2019-09-12 20:16] LABS: HGB 7.5 gm/dL (13.0-17.5)
[2019-09-12 20:18] LABS: ABG HCO3 22 mmol/L (21-25); ABG Oxygen Saturation 98.7 % (94-97); ABG PCO2 46 mmHg (35-45); ABG PH 7.28 (7.35-7.45); ABG PO2 129 mmHg (83-108); ABG TCO2 23 mmol/L (19-24)
[2019-09-12 20:20] LABS: Allen Test Performed? no
--- NOTE | 2019-09-12 20:20 | OP ---
OPERATIVE REPORT DATE OF SURGERY: 09/12/2019 SURGEON: Dr. Barry Vela. BUILDING ILLUMINATING ENGINEER: GONZALEZ Faulkner PREOPERATIVE DIAGNOSES: 1. Coronary artery disease, status post prior mid CAB with MARTE/LAD. 2. Hypertension. 3. Obesity. 4. Ex-smoker. 5. Evidence of chronic obstructive pulmonary disease clinically. POSTOPERATIVE DIAGNOSES: 1. Coronary artery disease, status post mid CAB with MARTE/LAD. 2. Hypertension. 3. Obesity. 4. Ex-smoker. 5. Evidence of chronic obstructive pulmonary disease clinically. 6. Calcified coronary artery disease. PROCEDURES: 1. Redo Median sternotomy with double coronary artery bypass grafting using the left radial artery from the aorta to the right coronary artery, reverse saphenous vein graft from the aorta to the obtuse marginal artery. 2. Aortic valve replacement using a 25 mm pericardial bioprosthesis Inspiris. 3. Endoscopic harvesting of the left radial artery. 4. Endoscopic harvesting of the left greater saphenous vein. 5. Intraoperative graft flow measurements using the [employer] system. 6. Intraoperative transesophageal echocardiogram and epiaortic scan. INDICATION FOR SURGERY: The patient is a 69-year-old gentleman with the above risk factors who underwent in the year [address] Jake Alba mid CAB with left internal mammary artery to the left anterior descending artery. The patient at this point was admitted to the hospital with complaint of shortness of breath and workup included cardiac catheterization and a DAMARI that showed severe aortic valve stenosis on the tricuspid valve and evidence of significant disease in the proximal circumflex artery and the mid right coronary artery. Left internal mammary artery is patent. The left ventricular function is around 40%. The patient is being considered at this point for aortic valve replacement and redo coronary artery bypass grafting. The STS risk was discussed with him and his ; they understood them and agreed to proceed. DESCRIPTION OF THE PROCEDURE: With the patient in supine position, right internal jugular [place]-Hakeem catheter and right radial arterial line were placed. PA pressure was 54/25 and cardiac index was 2.5. Subsequently he was brought to the operating room, where general endotracheal anesthesia was induced uneventfully. A Richmond catheter was inserted. The chest, abdomen and both lower extremities were prepped and draped using ChloraPrep after application of defibrillation patches. The patient received 2 grams of cefazolin intravenously. Transesophageal echocardiogram showed moderate left ventricular dysfunction with mild mitral valve regurgitation, severe aortic valve stenosis, trivial aortic valve regurgitation. A midline sternotomy was performed with a regular saw. We used Ostene initially but had to use bone wax in view of profuse sternal bleeding at the end of the case. Mediastinal fat was transected between 2 ties and epiaortic scanning revealed normal ascending aorta. The pericardium was opened over the aorta. There were some adhesions which were lysed, and using finger blunt dissection I was able to open the pericardium in the middle initially. Dissection proceeded sharply to lyse the adhesions between the right atrium and the pericardium. The aorta and the right side of the heart were freed. The inferior aspect of the RV also was freed. In the same setting, the left radial artery was harvested endoscopically. It was initially exposed at the wrist and a clamping trial revealed preserved signal in the left index oxygen saturation probe. Forearm incision was closed over a drain. The radial artery was prepared by incising the fascia all along its volar aspect and clipping all the branches. It was of good quality, around 2.5 mm in diameter. It was, however, short in view of the patient's short forearm. Also in the same setting, the left greater saphenous vein was harvested endoscopically after administration of 2000 units of heparin between groin and above-ankle level. That took some time in view of very fatty tissues. The leg incisions were closed over a drain. The vein was prepared and appeared to be a reasonable usable segment from the ankle to the mid thigh, as the upper segment was varicose. It was around 4 mm in diameter. After systemic heparinization, after placement of respective pledgeted pursestrings, aortic cannulation with a 21-American Softflow cannula in the proximal arch and venous cannulation via the right atrial appendage was performed. Antegrade as well as retrograde cardioplegia catheters were placed. It was hard to do any dissection on the left side with the heart full. We knew that the mammary artery had been harvested up to the intercostal space only as per the operative report and on the CT scan it looked like it was diving straight to the anastomotic area. Cardiopulmonary bypass was initiated, and with the heart bypassed and emptied to a certain extent, we proceeded with a combination of blunt and sharp dissection, liberating the lateral aspect of the left ventricle and the apex. We proceeded dissecting carefully and finally identified the mammary artery anastomosis and the mammary artery inside the pericardium. It was followed a little bit outside the pericardium in the mediastinal fat. We lysed the adhesions between the lung and the chest wall to allow a 19-American Miguel drain that was placed in the left chest atypically. At this point, we applied a metal bulldog on the mammary pedicle and clamped the aorta and protected the myocardium with an initial dose of 900 mL of antegrade cold blood cardioplegia followed by 400 mL of retrograde cold blood cardioplegia. Subsequent doses were given retrograde, initially at 30 minutes but subsequently at 15- minute intervals. We explored the inferior wall. The posterior descending artery and the right coronary artery system were intramyocardial. However, I was feeling calcification in the posterior descending artery and dissected over it and followed it actually proximally to a softer area that turned out to be the distal aspect of the right coronary artery which anteriorly had a soft wall. That would be the site for bypass. On the lateral wall, we were very fortunate to find a totally intramyocardial obtuse marginal artery which was around 2 mm in diameter and thin-walled. The first distal anastomosis was between a segment of reverse saphenous vein graft, as the radial artery would not reach to the left side, and the obtuse marginal artery using Prolene 7-0 in continuous fashion. The heel and toe were probed before completion. That vein was passed behind the mammary pedicle and suspended. The second distal anastomosis was between the left radial artery and the distal aspect of the right coronary artery, which was opened and was around 2 mm in diameter, using Prolene 7-0 in continuous fashion. We had just enough length for the radial artery to reach the aorta and that was planned prior to the anastomosis. The left atrial appendage was really behind the heart, and in view of his short mammary artery limiting the excessive medial displacement of the heart, I did not clip it. Attention was moved at this point. I performed the aortic valve replacement part. The aorta was opened transversely. Exploration revealed a trileaflet, heavily calcified aortic valve and calcification extending throughout the whole anulus. It took a while to excise it and debride the anulus to satisfaction. Thorough irrigation with around 500 mL of cold saline was done to make sure there was no debris. We were giving cardioplegia retrograde and had backflow from both coronary ostia. Both coronary ostia positions were normal. I placed a total of 16 Ti-Cron 2-0 sutures in a horizontal mattress fashion with the pledgets on the ventricular side. The anulus was sized to a 25 mm pericardial bioprosthesis Inspdelfins, which was selected, brought into the field, and all the sutures passed symmetrically into the cuff. It seated nicely in a supra-annular position. All the needles were cut and the sutures tied using the Corknot device. Both coronary ostia were clear. Thorough irrigation one more time was performed. We proceeded to close the aortotomy using Prolene 4-0 in 2 layers pledgeted at the corner with the first layer in horizontal mattress and the second layer in an [id number] technique. Rewarming at this point was started as we punched out 2 buttons of 4 mm each from the ascending aorta and performed the 2 proximal anastomoses of the vein graft and the radial artery above the aortotomy using Prolene 6-0 for the vein, Prolene 7-0 for the radial artery. The patient was given half-load Primacor. De-airing maneuvers were done. He was also given lidocaine and magnesium. The aorta was unclamped. The patient regained spontaneous sinus rhythm after initial slow junctional rhythm. The anastomoses were hemostatic. There was perfuse venous bleeding from the apex of the heart, and at that level I applied a TachoSil and eventually a pledgeted 4-0 Prolene and over it another TachoSil, and that helped tremendously. The patient was very oozy at this point and we ordered some platelets and fresh frozen plasma. The DAMARI showed good functioning aortic valve with no paravalvular leak. De-airing was adequate. With that, and after around 25 minutes of re-perfusion, we weaned off cardiopulmonary bypass with the need of moderate-dose Primacor and moderate-dose vasopressors. Test- dose, then full-dose protamine was given. Decannulation followed. Two monopolar atrial pacing wires were affixed to the right atrial pursestrings and one ventricular pacing wire was driven via the inferior aspect of the right ventricle. The patient was given 6 units of platelets and 2 units of FFP initially. Hemostasis took a while to achieve. I placed a Rultract retractor in the left upper left hemisternum to better check the area of the mammary artery and there was no bleeding at that level. Two 19-American Miguel drains were placed, one substernally and one in the posterior pericardium. Patient was given an additional 2 units of FFP and cryoprecipitate. With that, hemostasis was satisfactory. The mediastinal fat was approximated over the aorta. There was paucity of pericardial fat, but we did approximate some tissues to cover basically the radial artery graft that passes in the AV groove. After ensuring adequate hemostasis and hemodynamics and after correct sponge, instrument and needle counts, the sternum was closed using 5 [id number] pineal cables after interposing Fibrillar between the sternal edges. Thorough irrigation with cefazolin followed. The rest of the closure proceeded in layers. Skin glue was applied. The patient received 2 units of packed red blood cells, 4 units of FFP, 6 units of platelets and 10 units of cryoprecipitate. He also received 1.5 L of Cell Saver blood. He was transferred to the ICU with a cardiac index of 2.2 on 0.3 mcg/kg per minute of Primacor and he was on low-dose vasopressor. His PA pressure was 32/18. He was in normal sinus rhythm at 70. MMODL / IJN: [id number] / [facility]IE[facility] CENTEROlga
--- NOTE | 2019-09-12 20:32 | PCN ---
PROCEDURE NOTE DATE OF PROCEDURE: 09/12/2019. PROCEDURE: Intraoperative graft flow measurements using the [employer] system. INDICATION FOR SURGERY: Patient underwent redo coronary artery bypass grafting and aortic valve replacement. The procedure was performed for chief quality officer of the constructed graft. DESCRIPTION OF THE PROCEDURE: After completing the double bypass with the right radial artery to the right coronary artery and vein graft to the obtuse marginal artery, and after replacement of the aortic valve and coming off bypass with good hemodynamics, we selected the 4 mm probe. The flow into the radial artery going to the RCA was 62 mL/minute, pulsatility index of 3.3, diastolic filling of 70%, showing an excellent functioning graft. The flow into the vein graft going to the obtuse marginal artery was 67 mL/minute, pulsatility index of 2.9, diastolic filling of 69%, also showing an excellent functioning graft. The procedure was terminated. JEREMIAS / ANGELIKA: [id number] /
[2019-09-12 20:47] LABS: Platelet Count 49 k/uL (150-450)
[2019-09-12 20:57] LABS: Glucose,Whole Blood 116 mg/dL (75-99)
[2019-09-12] MEDS ORDERED: SODIUM BICARB 8.4% 50 ML SYR (1 MEQ/ML) IV STA ×2 (21:09→23:17)
[2019-09-12] MEDS ORDERED: POTASSIUM BICARBONATE/CIT AC 20 MEQ TABLET.EFF NG-TUBE SCH (22:00)
[2019-09-12] MEDS: CALCIUM GLUCONATE 1 GM in SODIUM CHLORIDE 0.9% 100 ML IVPB ONE ×2 (22:28→22:36)
[2019-09-12] MEDS: SODIUM CHLORIDE 0.9% 150 ML with VASOPRESSIN 60 UNIT IV SCH ×2 (22:34)
[2019-09-12] MEDS: MUPIROCIN 2% OINT 22 GM TUBE NASAL SCH (22:35)
[2019-09-12] MEDS: CHLORHEXIDINE GLUCONATE 15 ML CUP MUCOUS MEM SCH (22:37)
[2019-09-12] MEDS: CLEVIDIPINE BUTYRATE 25 MG in EMPTY BAG 1 BAG IV SCH (22:40)
[2019-09-12] MEDS: PHENYLEPHRINE 40 MG in SODIUM CHLORIDE 0.9% 250 ML IV SCH (22:41)
[2019-09-12 22:54] LABS: Glucose,Whole Blood 161 mg/dL (75-99)
[2019-09-12 23:51] LABS: Glucose,Whole Blood 162 mg/dL (75-99)
[2019-09-13] MEDS: PHENYLEPHRINE 40 MG in SODIUM CHLORIDE 0.9% 250 ML IV SCH ×7 (00:15→22:22)
[2019-09-13] MEDS: NOREPINEPHRINE 32 MG in SODIUM CHLORIDE 0.9% 218 ML IV SCH ×4 (00:15→19:10)
[2019-09-13 00:21] LABS: ABG HCO3 16 mmol/L (21-25); ABG PCO2 40 mmHg (35-45); ABG PH 7.22 (7.35-7.45); ABG PO2 89 mmHg (83-108); Allen Test Performed? no
[2019-09-13 00:22] LABS: ABG Base Excess -11.6 mmol/L
[2019-09-13 00:23] LABS: ABG Base Excess -11.9 mmol/L; ABG HCO3 15 mmol/L (21-25); ABG PCO2 35 mmHg (35-45); ABG PH 7.25 (7.35-7.45); ABG PO2 97 mmHg (83-108); Allen Test Performed? no
[2019-09-13] MEDS ORDERED: SODIUM BICARB 8.4% 50 ML SYR (1 MEQ/ML) IV STA ×7 (00:31→11:40)
[2019-09-13] MEDS: ACETAMINOPHEN IV (For NPO) 1,000 MG in EMPTY BAG 1 BAG IVPB SCH ×2 (00:35→09:44)
[2019-09-13] MEDS ORDERED: SODIUM BICARB 8.4% 50 ML SYR (1 MEQ/ML) ONE ×4 (00:42→03:40)
[2019-09-13 01:00] LABS: Glucose,Whole Blood 160 mg/dL (75-99)
[2019-09-13] MEDS ORDERED: Kcentra PER PHARMACY 1 EACH MISC MISCELLANE PRN (01:54)
[2019-09-13 02:10] LABS: ABG HCO3 15 mmol/L (21-25); ABG Oxygen Saturation 98.2 % (94-97); ABG PCO2 31 mmHg (35-45); ABG PH 7.28 (7.35-7.45); ABG PO2 104 mmHg (83-108); ABG TCO2 16 mmol/L (19-24)
[2019-09-13 02:11] LABS: Allen Test Performed? no
[2019-09-13 02:12] LABS: INR 1.1 (<1.2); Partial Thromboplastin Time 32.5 sec (22.0-30.0); Prothrombin Time 11.8 sec (9.0-12.0)
[2019-09-13] MEDS ORDERED: HUMAN PROTHROMBIN COMPLX IV ONE ×4 (02:15→02:45)
[2019-09-13] MEDS ORDERED: HEPARIN SODIUM,PORCINE 5,000 UNIT/ML 1 ML VIAL SQ SCH (02:30)
[2019-09-13 02:52] LABS: Glucose,Whole Blood 145 mg/dL (75-99)
[2019-09-13 02:57] LABS: Basophils # (A) 0.1 k/uL (0-0.2); Basophils % (A) 1 %; Eosinophils % (A) 0 %; HCT 27.6 % (39.0-53.0); Lymphocytes # (A) 0.8 k/uL (1.0-4.8); Lymphocytes % (A) 8 %; MCH 31.9 pg (25.0-35.0); MCHC 33.3 g/dL (31.0-37.0); MCV 95.9 fL (80.0-100.0); Mean Platelet Volume 10.3; Monocytes # (A) 0.9 k/uL (0-1.0); Monocytes % (A) 9 %; Neutrophils # (A) 8.4 k/uL (1.3-7.7); Neutrophils % (A) 81 %; RBC 2.87 m/uL (4.30-5.90); RDW 14.3 % (11.5-15.5); WBC 10.4 k/uL (3.8-10.6)
[2019-09-13] MEDS ORDERED: HUMAN PROTHROMBIN COMPLX 500 UNIT/16 ML VIAL IV ONE (03:02)
[2019-09-13 03:03] LABS: HGB 9.2 gm/dL (13.0-17.5); Ionized Calcium 4.1 mg/dL (4.5-5.3); Platelet Count 78 k/uL (150-450)
[2019-09-13 03:12] LABS: Albumin 2.8 g/dL (3.5-5.0); Calcium 7.6 mg/dL (8.4-10.2); Magnesium 1.9 mg/dL (1.6-2.3); Potassium 4.4 mmol/L (3.5-5.1); Total Bilirubin 0.8 mg/dL (0.2-1.3); Total Protein 4.2 g/dL (6.3-8.2)
--- NOTE | 2019-09-13 03:25 | XR ---
EXAMINATION TYPE: XR chest 1V portable DATE OF EXAM: 09/13/2019 COMPARISON: Yesterday HISTORY: Postop cardiac surgery TECHNIQUE: Single frontal view of the chest is obtained. FINDINGS: Endotracheal tube is 4 cm from the paulino. There is no obvious heart failure. There is savana e patchy atelectasis and infiltrate left lower lobe. There is right jugular catheter with the tip in the right pulmonary artery. There is nasogastric tube in the stomach. There is a left-sided chest tub e. No pneumothorax. Trachea is midline. Cardiac silhouette is enlarged. IMPRESSION: Enlarged cardiac silhouette compared to yesterday that could relate to pericardial effus ion. There is some infiltrate and atelectasis left lower lobe unchanged. No obvious heart failure. No pneumothorax.
[2019-09-13] MEDS ORDERED: PHENYLEPHRINE-0.9% NACL SYG 1 MG/10 ML SYRINGE ONE (03:40)
[2019-09-13] MEDS ORDERED: POTASSIUM CHLORIDE OPEN HEART 20 MEQ/50 ML BAG IVPB ONE (03:40)
[2019-09-13] MEDS ORDERED: EPINEPHrine 10 ML SYRINGE (0.1 MG/ML) ONE (03:40)
[2019-09-13] MEDS ORDERED: MIDAZOLAM 2 MG/2 ML VIAL ONE (03:40)
[2019-09-13] MEDS ORDERED: CALCIUM CHLORIDE 100 MG/ML 10 ML SYRINGE ONE (03:40)
[2019-09-13] MEDS ORDERED: ALBUMIN HUMAN 5% (25gm) 500 ML VIAL IVPB ONE (03:40)
[2019-09-13] MEDS ORDERED: VECURONIUM 10 MG VIAL IV ONE (03:40)
[2019-09-13] MEDS ORDERED: PROPOFOL 10 MG/ML 20 ML VIAL IV ONE (03:40)
[2019-09-13] MEDS ORDERED: fentaNYL (PF) 50 MCG/ML 50 ML VIAL ONE (03:40)
[2019-09-13] MEDS ORDERED: ROCURONIUM BROMIDE 10 MG/ML 10 ML VIAL IV ONE (03:43)
[2019-09-13 03:56] LABS: Allen Test Performed? no
[2019-09-13 03:57] LABS: ABG Base Excess -12.3 mmol/L; ABG HCO3 14 mmol/L (21-25); ABG PCO2 30 mmHg (35-45); ABG PH 7.29 (7.35-7.45); ABG PO2 145 mmHg (83-108); ABG TCO2 15 mmol/L (19-24)
[2019-09-13 04:37] LABS: ABG Base Excess -12.1 mmol/L; ABG Glucose Whole Blood 193 mg/dL (75-99); ABG HCO3 17 mmol/L (21-25); ABG Ionized Calcium 3.9 mg/dL (4.5-5.3); ABG PCO2 56 mmHg (35-45); ABG PO2 102 mmHg (83-108); ABG Potassium Whole Blood 3.2 mmol/L (3.4-4.5); ABG Sodium Whole Blood 154 mmol/L (135-146); ABG TCO2 19 mmol/L (19-24)
[2019-09-13 05:04] LABS: ABG Base Excess -9.9 mmol/L; ABG Glucose Whole Blood 181 mg/dL (75-99); ABG HCO3 19 mmol/L (21-25); ABG Ionized Calcium 4.2 mg/dL (4.5-5.3); ABG Oxygen Saturation 98.5 % (94-97); ABG PCO2 59 mmHg (35-45); ABG PO2 128 mmHg (83-108); ABG Potassium Whole Blood 4.2 mmol/L (3.4-4.5); ABG Sodium Whole Blood 154 mmol/L (135-146); ABG TCO2 21 mmol/L (19-24)
[2019-09-13 05:57] LABS: ABG Hematocrit 23 % (34.0-46.0); ABG PH 7.09 (7.35-7.45)
[2019-09-13 05:58] LABS: ABG Hematocrit 24 % (34.0-46.0); ABG PH 7.12 (7.35-7.45)
[2019-09-13 06:23] LABS: ABG Base Excess -8.8 mmol/L; ABG HCO3 19 mmol/L (21-25); ABG Oxygen Saturation 92.9 % (94-97); ABG PCO2 46 mmHg (35-45); ABG PH 7.22 (7.35-7.45); ABG PO2 68 mmHg (83-108); ABG TCO2 20 mmol/L (19-24)
[2019-09-13] MEDS ORDERED: HYDROcodone/APAP 5-325MG 1 EACH TAB PO PRN ×2 (06:26)
[2019-09-13 06:28] LABS: Allen Test Performed? no
[2019-09-13 06:49] LABS: Ionized Calcium 4.2 mg/dL (4.5-5.3)
[2019-09-13] MEDS: NITROGLYCERIN-D5W PMX 50 MG in DEXTROSE/WATER 1 250ML.BAG IV SCH (06:55)
[2019-09-13 06:56] LABS: Albumin 2.8 g/dL (3.5-5.0); Calcium 7.5 mg/dL (8.4-10.2); Magnesium 1.8 mg/dL (1.6-2.3); Potassium 4.1 mmol/L (3.5-5.1); Total Bilirubin 0.7 mg/dL (0.2-1.3); Total Protein 4.2 g/dL (6.3-8.2)
[2019-09-13 06:56] LABS: Glucose,Whole Blood 135 mg/dL (75-99)
[2019-09-13] MEDS: SODIUM CHLORIDE 0.9% 150 ML with VASOPRESSIN 60 UNIT IV SCH ×4 (06:56→07:01)
--- NOTE | 2019-09-13 06:57 | XR ---
EXAMINATION TYPE: XR chest 1V portable DATE OF EXAM: 09/13/2019 COMPARISON: 09/13/2019 HISTORY: Cardiac surgery TECHNIQUE: Single frontal view of the chest is obtained. FINDINGS: Endotracheal tube is 4.5 cm from the paulino. There is right jugular catheter with the tip in the right pulmonary artery. There is no gross heart failure. Heart appears enlarged. There is some mild atelectasis left lower lobe. IMPRESSION: There is improved aeration of the lungs compared to recent exam in the left lower lobe. No gross heart failure.
[2019-09-13 07:01] LABS: Basophils # (A) 0.1 k/uL (0-0.2); Basophils % (A) 1 %; Eosinophils % (A) 0 %; HCT 25.1 % (39.0-53.0); HGB 8.5 gm/dL (13.0-17.5); Lymphocytes # (A) 0.9 k/uL (1.0-4.8); Lymphocytes % (A) 9 %; MCH 32.1 pg (25.0-35.0); MCV 94.5 fL (80.0-100.0); Mean Platelet Volume 10.8; Monocytes # (A) 0.7 k/uL (0-1.0); Monocytes % (A) 7 %; Neutrophils # (A) 8.8 k/uL (1.3-7.7); Neutrophils % (A) 83 %; RBC 2.66 m/uL (4.30-5.90); RDW 14.2 % (11.5-15.5); WBC 10.6 k/uL (3.8-10.6)
[2019-09-13] MEDS: IPRATROPIUM-ALBUTEROL 3 ML NEB INHALATION SCH ×4 (07:11→18:52)
[2019-09-13 07:40] LABS: Anisocytosis (M) Present; Hypochromasia (M) Present; Platelet Count 74 k/uL (150-450); Poikilocytosis (M) Present
[2019-09-13 07:45] LABS: ABG Base Excess -8.6 mmol/L; ABG HCO3 18 mmol/L (21-25); ABG Oxygen Saturation 98.6 % (94-97); ABG PCO2 38 mmHg (35-45); ABG PH 7.28 (7.35-7.45); ABG PO2 126 mmHg (83-108); ABG TCO2 19 mmol/L (19-24)
[2019-09-13] MEDS: PROPOFOL 1,000 MG in EMPTY BAG 1 BAG IV SCH ×4 (08:00→22:23)
[2019-09-13 08:22] LABS: Glucose,Whole Blood 102 mg/dL (75-99)
--- NOTE | 2019-09-13 08:50 | P.PN ---
Subjective Progress Note Date: 09/13/19 Principal diagnosis: Severe aortic valve stenosis and triple-vessel calcified coronary artery disease. Past medical history significant for coronary artery disease, status post MID CAB in 1999 with his left internal mammary artery to left anterior descending coronary artery, known aortic valve stenosis, hypertension, hyperlipidemia, history of platelet disorder status post splenectomy, diabetes mellitus type 2, obesity and previous tobacco dependance. POD #1 urgent median sternotomy with redo double coronary artery bypass grafting using the left radial artery from the aorta to the right coronary artery, reverse saphenous vein graft from the aorta to the obtuse marginal artery, aortic valve replacement using a 25 mm Inspiris pericardial bioprosthesis, endoscopic harvesting of the left radial artery, endoscopic harvesting of the left greater saphenous vein in the groin to above the ankle level, intraoperative graft flow measurements using the [employer] system, intraoperative transesophageal echocardiogram and epi-aortic scanning Postoperative lactic acidosis, unexpected Postoperative thrombocytopenia, expected Postoperative acute blood loss anemia, expected from hemodilution and cardiopulmonary bypass, with postoperative bleeding which was unexpected POD #0 re-operation, sternal exploration with evacuation of clots The patient is currently laying in the intensive care unit, remains sedated on mechanical ventilation in critical condition. Recently returned from the operating room, he was taken back for postoperative bleeding, chest was explored and clots were evacuated without any evidence of continued bleeding. Remains in sinus rhythm to sinus tach, currently on IV Levophed, phenylephrine, vasopressin, Primacor. Patient has received multiple blood products. Ventilator changes per Dr. Oquendo. Output from chest tubes has slowed down. Urine output has remained adequate. Family has been updated continuously. Patient remains critical but seems to be stabilizing. Objective - Vital Signs Vital signs: Vital Signs Temp 97.6 F 09/13/19 08:00 Pulse 101 H 09/13/19 08:00 Resp 24 09/13/19 08:00 BP 86/38 09/12/19 16:52 Pulse Ox 98 09/13/19 08:00 Intake & Output 09/12/19 09/13/19 09/13/19 18:59 06:59 18:59 Intake Total 2200 2945.776 296.55 Output Total 5300 700 Balance -3100 2245.776 296.55 Intake: IV 34 671.5 ACETAMINOPHEN IV (For NPO 100 ) 1,000 mg In Empty Bag 1 bag @ 400 mls/hr IVPB Q6HR PENDING SALE TO [facility] Rx#:[id number] Calcium Gluconate 1 gm In 200 Sodium Chloride 0.9% 100 ml @ 100 mls/hr IVPB ONCE ONE Rx#:[id number] Calcium Gluconate 1 gm In 200 Sodium Chloride 0.9% 100 ml @ 100 mls/hr IVPB ONCE ONE Rx#:[id number] Nitroglycerin-D5w Pmx 50 1.5 mg In Dextrose/Water 1 250ml.bag @ 5 MCG/MIN 1.5 mls/hr IV .Q24H PENDING SALE TO [facility] Rx#: [id number] Pressure bag 9 Sodium Chloride 0.9% 1, 50 000 ml @ 50 mls/hr IV . Q20H PENDING SALE TO [facility] Rx#:[id number] ceFAZolin 2 gm In Sodium 50 Chloride 0.9% 50 ml @ 100 mls/hr IVPB Q8H PENDING SALE TO [facility] Rx#: [id number] co/ci 30 Intake, IV Titration 393.276 17.55 Amount Insulin Regular 100 unit 18.533 17.55 In Sodium Chloride 0.9% 100 ml @ Titrate IV .Q0M PENDING SALE TO [facility] Rx#:[id number] Milrinone-D5w Pmx 20 mg 40.285 In Dextrose/Water 1 100ml .bag @ Per Protocol IV . Q0M PENDING SALE TO [facility] Rx#:[id number] Norepinephrine 32 mg In 80.458 Sodium Chloride 0.9% 218 ml @ 0.5 MCG/KG/MIN 25. 078 mls/hr IV .Q9H59M PENDING SALE TO [facility] Rx#:[id number] Phenylephrine 40 mg In 254.000 Sodium Chloride 0.9% 250 ml @ 0.5 MCG/KG/MIN 20. 384 mls/hr IV .H08F32C PENDING SALE TO [facility] Rx#:[id number] Blood Product 2166 1881 279 Ffp 24 Cpd Unit 330 [id number] Ffp 24 Cpd Unit 314 [id number] Ffp 24 Cpd Unit 303 [id number] Ffp 24 Cpd Unit 305 [id number] Ffp 24 Cpd Unit 312 [id number] Platelet Irr Pheresis 3 205 Acda Unit [id number] Platelet Irr Pheresis 3 203 Acda Unit [id number] Platelet Irr Pheresis Pas 0 279 -C Unit [id number] Pooled Cryoprecipitate 108 Unit [id number] Pooled Cryoprecipitate 107 Unit [id number] Rc As-1 Unit 310 [id number] Rc As-1 Unit 310 [id number] Rc As-1 Unit 310 [id number] Rc As-1 Unit 310 [id number] Rc As-1 Unit 310 [id number] Rc As-1 Unit 310 [id number] Output: Urine 1300 100 Estimated Blood Loss 4000 600 ABP, PAP, CO, CI - Last Documented Arterial Blood Pressure 107/57 Pulmonary Artery Pressure 24/17 Cardiac Output 8.8 Cardiac Index 4.1 - Constitutional General appearance: Present: no acute distress, obese - Respiratory Details: Lungs sounds diminished bilaterally with coarse breath sounds in the bases. Respirations even, nonlabored. Remains on mechanical ventilation, current settings assist control mode, FiO2 70%, tidal volume 550, respiratory rate 22, PEEP 10. 8.5 ET tube present, 25 at the lip. Mediastinal chest tube present to continuous wall suction, 200 mL serosanguineous drainage since return from surgery this morning, no air leak present. Left pleural chest tube to continuous wall suction, 5 mL serosanguineous drainage since return from surgery this morning, no air leak present. - Cardiovascular Details: S1, S2 present. Tachycardic but regular rate and rhythm, sinus tach on telemetry. Sternum stable. A/V epicardial pacemaker wires present, connected to generator, DDD mode with backup rate 60 bpm. Palpable peripheral pulses bilaterally. Trace generalized edema present. Right internal jugular [place]/Co rdis, right radial arterial line present. Last CO/CI 8.8/4.1. Remains on IV Levophed, phenylephrine, vasopressin, Primacor. Heart hugger, antiembolism stockings, SCDs present. - Gastrointestinal Gastrointestinal Comment(s): Abdomen soft, nondistended, obese. Hypoactive bowel sounds present. OG tube present to low intermittent suction with minimal output. - Genitourinary Genitourinary Comment(s): [place] present draining clear, yellow urine. Urine output 35-75 mL per hour overnight. - Integumentary Integumentary Comment(s): Skin is warm and dry. Anterior chest incision well approximated covered with dry intact dressing. Left radial artery harvest site well approximated, CHUNG drain present with minimal serosanguineous drainage. Left lower extremity EVH site well approximated, CHUNG drain present with minimal serosanguineous drainage - Neurologic Neurologic Comment(s): Unable to assess, currently sedated with propofol - Allied health notes Allied health notes reviewed: nursing - Labs CBC & Chem 7: 09/13/19 06:30 09/13/19 06:30 Labs: Abnormal Lab Results - Last 24 Hours (Table) 09/11/19 09/12/19 09/12/19 Range/Units 11:31 08:55 11:34 RBC (4.30-5.90) m/uL Hgb (13.0-17.5) gm/dL Hct (39.0-53.0) % Plt Count (150-450) k/uL Neutrophils # (1.3-7.7) k/uL Lymphocytes # (1.0-4.8) k/uL PT (9.0-12.0) sec INR (<1.2) APTT (22.0-30.0) sec ABG pH (7.35-7.45) ABG pCO2 48 H 51 H (35-45) mmHg ABG pO2 77 L 123 H (83-108) mmHg ABG HCO3 28 H 28 H (21-25) mmol/L ABG Total CO2 30 H 30 H (19-24) mmol/L ABG O2 Saturation 98.5 H (94-97) % ABG Hematocrit (34.0-46.0) % ABG Sodium (135-146) mmol/L ABG Potassium (3.4-4.5) mmol/L ABG Ionized Calcium (4.5-5.3) mg/dL ABG Glucose 131 H 146 H (75-99) mg/dL ABG Lactic Acid (0.5-1.6) mmol/L Hemoglobin (13.0-17.5) gm/dL Sodium (137-145) mmol/L Chloride (98-107) mmol/L Carbon Dioxide (22-30) mmol/L Glucose (74-99) mg/dL POC Glucose (mg/dL) (75-99) mg/dL Plasma Lactic Acid Srini (0.7-2.0) mmol/L Calcium (8.4-10.2) mg/dL Ionized Calcium [place] (4.5-5.3) mg/dL Total Bilirubin (0.2-1.3) mg/dL AST (17-59) U/L ALT (21-72) U/L Alkaline Phosphatase (38-126) U/L Total Protein (6.3-8.2) g/dL Albumin (3.5-5.0) g/dL Arterial Blood Potassium (3.4-4.5) mmol/L Arterial Blood Glucose 131 H 146 H (75-99) mg/dL Crossmatch See Detail 09/12/19 09/12/19 09/12/19 Range/Units 12:17 12:45 13:18 RBC (4.30-5.90) m/uL Hgb (13.0-17.5) gm/dL Hct (39.0-53.0) % Plt Count (150-450) k/uL Neutrophils # (1.3-7.7) k/uL Lymphocytes # (1.0-4.8) k/uL PT (9.0-12.0) sec INR (<1.2) APTT (22.0-30.0) sec ABG pH (7.35-7.45) ABG pCO2 (35-45) mmHg ABG pO2 >420 H 315 H 289 H (83-108) mmHg ABG HCO3 26 H 26 H (21-25) mmol/L ABG Total CO2 26 H 28 H 27 H (19-24) mmol/L ABG O2 Saturation 100.0 H 99.8 H 100.0 H (94-97) % ABG Hematocrit 32 L (34.0-46.0) % ABG Sodium (135-146) mmol/L ABG Potassium 5.0 H (3.4-4.5) mmol/L ABG Ionized Calcium 4.1 L 4.3 L 4.2 L (4.5-5.3) mg/dL ABG Glucose 147 H 160 H 226 H (75-99) mg/dL ABG Lactic Acid (0.5-1.6) mmol/L Hemoglobin 11.2 L 11.5 L 10.3 L (13.0-17.5) gm/dL Sodium (137-145) mmol/L Chloride (98-107) mmol/L Carbon Dioxide (22-30) mmol/L Glucose (74-99) mg/dL POC Glucose (mg/dL) (75-99) mg/dL Plasma Lactic Acid Srini (0.7-2.0) mmol/L Calcium (8.4-10.2) mg/dL Ionized Calcium [place] (4.5-5.3) mg/dL Total Bilirubin (0.2-1.3) mg/dL AST (17-59) U/L ALT (21-72) U/L Alkaline Phosphatase (38-126) U/L Total Protein (6.3-8.2) g/dL Albumin (3.5-5.0) g/dL Arterial Blood Potassium 5.0 H (3.4-4.5) mmol/L Arterial Blood Glucose 147 H 160 H 226 H (75-99) mg/dL Crossmatch 09/12/19 09/12/19 09/12/19 Range/Units 14:02 14:43 15:00 RBC (4.30-5.90) m/uL Hgb (13.0-17.5) gm/dL Hct (39.0-53.0) % Plt Count (150-450) k/uL Neutrophils # (1.3-7.7) k/uL Lymphocytes # (1.0-4.8) k/uL PT (9.0-12.0) sec INR (<1.2) APTT (22.0-30.0) sec ABG pH 7.22 L 7.26 L (7.35-7.45) ABG pCO2 61 H 53 H (35-45) mmHg ABG pO2 248 H 179 H >420 H (83-108) mmHg ABG HCO3 (21-25) mmol/L ABG Total CO2 26 H 27 H 25 H (19-24) mmol/L ABG O2 Saturation 99.8 H 99.1 H 100.0 H (94-97) % ABG Hematocrit 30 L 30 L 27 L (34.0-46.0) % ABG Sodium (135-146) mmol/L ABG Potassium 4.6 H 4.6 H (3.4-4.5) mmol/L ABG Ionized Calcium 4.2 L 4.2 L 4.1 L (4.5-5.3) mg/dL ABG Glucose 214 H 202 H 211 H (75-99) mg/dL ABG Lactic Acid 2.4 H* 2.8 H* 2.9 H* (0.5-1.6) mmol/L Hemoglobin 9.6 L 9.8 L 8.7 L (13.0-17.5) gm/dL Sodium (137-145) mmol/L Chloride (98-107) mmol/L Carbon Dioxide (22-30) mmol/L Glucose (74-99) mg/dL POC Glucose (mg/dL) (75-99) mg/dL Plasma Lactic Acid Srini (0.7-2.0) mmol/L Calcium (8.4-10.2) mg/dL Ionized Calcium [place] (4.5-5.3) mg/dL Total Bilirubin (0.2-1.3) mg/dL AST (17-59) U/L ALT (21-72) U/L Alkaline Phosphatase (38-126) U/L Total Protein (6.3-8.2) g/dL Albumin (3.5-5.0) g/dL Arterial Blood Potassium 4.6 H 4.6 H (3.4-4.5) mmol/L Arterial Blood Glucose 214 H 202 H 211 H (75-99) mg/dL Crossmatch 09/12/19 09/12/19 09/12/19 Range/Units 15:45 16:04 17:14 RBC (4.30-5.90) m/uL Hgb (13.0-17.5) gm/dL Hct (39.0-53.0) % Plt Count (150-450) k/uL Neutrophils # (1.3-7.7) k/uL Lymphocytes # (1.0-4.8) k/uL PT (9.0-12.0) sec INR (<1.2) APTT (22.0-30.0) sec ABG pH 7.34 L (7.35-7.45) ABG pCO2 (35-45) mmHg ABG pO2 392 H 262 H 221 H (83-108) mmHg ABG HCO3 (21-25) mmol/L ABG Total CO2 25 H (19-24) mmol/L ABG O2 Saturation 100.0 H 99.9 H 99.9 H (94-97) % ABG Hematocrit 24 L 22 L 21 L (34.0-46.0) % ABG Sodium (135-146) mmol/L ABG Potassium (3.4-4.5) mmol/L ABG Ionized Calcium 3.9 L 4.4 L 3.7 L (4.5-5.3) mg/dL ABG Glucose 201 H 187 H 151 H (75-99) mg/dL ABG Lactic Acid 4.4 H* 5.9 H* 5.2 H* (0.5-1.6) mmol/L Hemoglobin 7.7 L 7.3 L 6.8 L* (13.0-17.5) gm/dL Sodium (137-145) mmol/L Chloride (98-107) mmol/L Carbon Dioxide (22-30) mmol/L Glucose (74-99) mg/dL POC Glucose (mg/dL) (75-99) mg/dL Plasma Lactic Acid Srini (0.7-2.0) mmol/L Calcium (8.4-10.2) mg/dL Ionized Calcium [place] (4.5-5.3) mg/dL Total Bilirubin (0.2-1.3) mg/dL AST (17-59) U/L ALT (21-72) U/L Alkaline Phosphatase (38-126) U/L Total Protein (6.3-8.2) g/dL Albumin (3.5-5.0) g/dL Arterial Blood Potassium (3.4-4.5) mmol/L Arterial Blood Glucose 201 H 187 H 151 H (75-99) mg/dL Crossmatch 09/12/19 09/12/19 09/12/19 Range/Units 18:31 19:22 19:24 RBC (4.30-5.90) m/uL Hgb (13.0-17.5) gm/dL Hct (39.0-53.0) % Plt Count (150-450) k/uL Neutrophils # (1.3-7.7) k/uL Lymphocytes # (1.0-4.8) k/uL PT (9.0-12.0) sec INR (<1.2) APTT (22.0-30.0) sec ABG pH 7.27 L (7.35-7.45) ABG pCO2 50 H (35-45) mmHg ABG pO2 205 H 267 H (83-108) mmHg ABG HCO3 (21-25) mmol/L ABG Total CO2 25 H (19-24) mmol/L ABG O2 Saturation 99.7 H 99.6 H (94-97) % ABG Hematocrit 24 L (34.0-46.0) % ABG Sodium (135-146) mmol/L ABG Potassium (3.4-4.5) mmol/L ABG Ionized Calcium 4.2 L (4.5-5.3) mg/dL ABG Glucose 117 H (75-99) mg/dL ABG Lactic Acid 5.0 H* (0.5-1.6) mmol/L Hemoglobin 7.9 L (13.0-17.5) gm/dL Sodium (137-145) mmol/L Chloride (98-107) mmol/L Carbon Dioxide (22-30) mmol/L Glucose (74-99) mg/dL POC Glucose (mg/dL) 145 H (75-99) mg/dL Plasma Lactic Acid Srini (0.7-2.0) mmol/L Calcium (8.4-10.2) mg/dL Ionized Calcium [place] (4.5-5.3) mg/dL Total Bilirubin (0.2-1.3) mg/dL AST (17-59) U/L ALT (21-72) U/L Alkaline Phosphatase (38-126) U/L Total Protein (6.3-8.2) g/dL Albumin (3.5-5.0) g/dL Arterial Blood Potassium (3.4-4.5) mmol/L Arterial Blood Glucose 117 H (75-99) mg/dL Crossmatch 09/12/19 09/12/19 09/12/19 Range/Units 19:58 20:14 20:16 RBC (4.30-5.90) m/uL Hgb (13.0-17.5) gm/dL Hct (39.0-53.0) % Plt Count (150-450) k/uL Neutrophils # (1.3-7.7) k/uL Lymphocytes # (1.0-4.8) k/uL PT (9.0-12.0) sec INR (<1.2) APTT (22.0-30.0) sec ABG pH 7.28 L (7.35-7.45) ABG pCO2 46 H (35-45) mmHg ABG pO2 129 H (83-108) mmHg ABG HCO3 (21-25) mmol/L ABG Total CO2 (19-24) mmol/L ABG O2 Saturation 98.7 H (94-97) % ABG Hematocrit (34.0-46.0) % ABG Sodium (135-146) mmol/L ABG Potassium (3.4-4.5) mmol/L ABG Ionized Calcium (4.5-5.3) mg/dL ABG Glucose (75-99) mg/dL ABG Lactic Acid (0.5-1.6) mmol/L Hemoglobin (13.0-17.5) gm/dL Sodium (137-145) mmol/L Chloride (98-107) mmol/L Carbon Dioxide (22-30) mmol/L Glucose (74-99) mg/dL POC Glucose (mg/dL) 144 H 148 H (75-99) mg/dL Plasma Lactic Acid Srini (0.7-2.0) mmol/L Calcium (8.4-10.2) mg/dL Ionized Calcium [place] (4.5-5.3) mg/dL Total Bilirubin (0.2-1.3) mg/dL AST (17-59) U/L ALT (21-72) U/L Alkaline Phosphatase (38-126) U/L Total Protein (6.3-8.2) g/dL Albumin (3.5-5.0) g/dL Arterial Blood Potassium (3.4-4.5) mmol/L Arterial Blood Glucose (75-99) mg/dL Crossmatch 09/12/19 09/12/19 09/12/19 Range/Units 20:56 22:53 22:57 RBC (4.30-5.90) m/uL Hgb (13.0-17.5) gm/dL Hct (39.0-53.0) % Plt Count (150-450) k/uL Neutrophils # (1.3-7.7) k/uL Lymphocytes # (1.0-4.8) k/uL PT (9.0-12.0) sec INR (<1.2) APTT (22.0-30.0) sec ABG pH 7.22 L (7.35-7.45) ABG pCO2 (35-45) mmHg ABG pO2 (83-108) mmHg ABG HCO3 16 L (21-25) mmol/L ABG Total CO2 (19-24) mmol/L ABG O2 Saturation (94-97) % ABG Hematocrit (34.0-46.0) % ABG Sodium (135-146) mmol/L ABG Potassium (3.4-4.5) mmol/L ABG Ionized Calcium (4.5-5.3) mg/dL ABG Glucose (75-99) mg/dL ABG Lactic Acid (0.5-1.6) mmol/L Hemoglobin (13.0-17.5) gm/dL Sodium (137-145) mmol/L Chloride (98-107) mmol/L Carbon Dioxide (22-30) mmol/L Glucose (74-99) mg/dL POC Glucose (mg/dL) 116 H 161 H (75-99) mg/dL Plasma Lactic Acid Srini (0.7-2.0) mmol/L Calcium (8.4-10.2) mg/dL Ionized Calcium [place] (4.5-5.3) mg/dL Total Bilirubin (0.2-1.3) mg/dL AST (17-59) U/L ALT (21-72) U/L Alkaline Phosphatase (38-126) U/L Total Protein (6.3-8.2) g/dL Albumin (3.5-5.0) g/dL Arterial Blood Potassium (3.4-4.5) mmol/L Arterial Blood Glucose (75-99) mg/dL Crossmatch 09/12/19 09/12/19 09/12/19 Range/Units 23:21 23:50 Unknown RBC (4.30-5.90) m/uL Hgb (13.0-17.5) gm/dL Hct (39.0-53.0) % Plt Count (150-450) k/uL Neutrophils # (1.3-7.7) k/uL Lymphocytes # (1.0-4.8) k/uL PT 12.5 H (9.0-12.0) sec INR 1.2 H (<1.2) APTT 32.9 H (22.0-30.0) sec ABG pH (7.35-7.45) ABG pCO2 (35-45) mmHg ABG pO2 (83-108) mmHg ABG HCO3 (21-25) mmol/L ABG Total CO2 (19-24) mmol/L ABG O2 Saturation (94-97) % ABG Hematocrit (34.0-46.0) % ABG Sodium (135-146) mmol/L ABG Potassium (3.4-4.5) mmol/L ABG Ionized Calcium (4.5-5.3) mg/dL ABG Glucose (75-99) mg/dL ABG Lactic Acid 12.6 H* (0.5-1.6) mmol/L Hemoglobin (13.0-17.5) gm/dL Sodium (137-145) mmol/L Chloride (98-107) mmol/L Carbon Dioxide (22-30) mmol/L Glucose (74-99) mg/dL POC Glucose (mg/dL) 162 H (75-99) mg/dL Plasma Lactic Acid Srini (0.7-2.0) mmol/L Calcium (8.4-10.2) mg/dL Ionized Calcium [place] (4.5-5.3) mg/dL Total Bilirubin (0.2-1.3) mg/dL AST (17-59) U/L ALT (21-72) U/L Alkaline Phosphatase (38-126) U/L Total Protein (6.3-8.2) g/dL Albumin (3.5-5.0) g/dL Arterial Blood Potassium (3.4-4.5) mmol/L Arterial Blood Glucose (75-99) mg/dL Crossmatch 09/12/19 09/12/19 09/13/19 Range/Units Unknown Unknown 00:11 RBC 2.29 L (4.30-5.90) m/uL Hgb 7.5 L D (13.0-17.5) gm/dL Hct 22.1 L (39.0-53.0) % Plt Count 49 L D (150-450) k/uL Neutrophils # 8.2 H (1.3-7.7) k/uL Lymphocytes # (1.0-4.8) k/uL PT (9.0-12.0) sec INR (<1.2) APTT (22.0-30.0) sec ABG pH 7.25 L (7.35-7.45) ABG pCO2 (35-45) mmHg ABG pO2 (83-108) mmHg ABG HCO3 15 L (21-25) mmol/L ABG Total CO2 (19-24) mmol/L ABG O2 Saturation 98.0 H (94-97) % ABG Hematocrit (34.0-46.0) % ABG Sodium (135-146) mmol/L ABG Potassium (3.4-4.5) mmol/L ABG Ionized Calcium (4.5-5.3) mg/dL ABG Glucose (75-99) mg/dL ABG Lactic Acid (0.5-1.6) mmol/L Hemoglobin (13.0-17.5) gm/dL Sodium (137-145) mmol/L Chloride 111 H (98-107) mmol/L Carbon Dioxide (22-30) mmol/L Glucose 130 H (74-99) mg/dL POC Glucose (mg/dL) (75-99) mg/dL Plasma Lactic Acid Srini (0.7-2.0) mmol/L Calcium 7.1 L (8.4-10.2) mg/dL Ionized Calcium [place] 4.2 L (4.5-5.3) mg/dL Total Bilirubin 1.4 H (0.2-1.3) mg/dL AST (17-59) U/L ALT (21-72) U/L Alkaline Phosphatase <20 L (38-126) U/L Total Protein 4.7 L (6.3-8.2) g/dL Albumin 3.1 L (3.5-5.0) g/dL Arterial Blood Potassium (3.4-4.5) mmol/L Arterial Blood Glucose (75-99) mg/dL Crossmatch 09/13/19 09/13/19 09/13/19 Range/Units 00:57 02:00 02:06 RBC (4.30-5.90) m/uL Hgb (13.0-17.5) gm/dL Hct (39.0-53.0) % Plt Count (150-450) k/uL Neutrophils # (1.3-7.7) k/uL Lymphocytes # (1.0-4.8) k/uL PT (9.0-12.0) sec INR (<1.2) APTT 32.5 H (22.0-30.0) sec ABG pH 7.28 L (7.35-7.45) ABG pCO2 31 L (35-45) mmHg ABG pO2 (83-108) mmHg ABG HCO3 15 L (21-25) mmol/L ABG Total CO2 16 L (19-24) mmol/L ABG O2 Saturation 98.2 H (94-97) % ABG Hematocrit (34.0-46.0) % ABG Sodium (135-146) mmol/L ABG Potassium (3.4-4.5) mmol/L ABG Ionized Calcium (4.5-5.3) mg/dL ABG Glucose (75-99) mg/dL ABG Lactic Acid (0.5-1.6) mmol/L Hemoglobin (13.0-17.5) gm/dL Sodium (137-145) mmol/L Chloride (98-107) mmol/L Carbon Dioxide (22-30) mmol/L Glucose (74-99) mg/dL POC Glucose (mg/dL) 160 H (75-99) mg/dL Plasma Lactic Acid Srini (0.7-2.0) mmol/L Calcium (8.4-10.2) mg/dL Ionized Calcium [place] (4.5-5.3) mg/dL Total Bilirubin (0.2-1.3) mg/dL AST (17-59) U/L ALT (21-72) U/L Alkaline Phosphatase (38-126) U/L Total Protein (6.3-8.2) g/dL Albumin (3.5-5.0) g/dL Arterial Blood Potassium (3.4-4.5) mmol/L Arterial Blood Glucose (75-99) mg/dL Crossmatch 09/13/19 09/13/19 09/13/19 Range/Units 02:45 02:45 02:45 RBC 2.87 L (4.30-5.90) m/uL Hgb 9.2 L D (13.0-17.5) gm/dL Hct 27.6 L (39.0-53.0) % Plt Count 78 L D (150-450) k/uL Neutrophils # 8.4 H (1.3-7.7) k/uL Lymphocytes # 0.8 L (1.0-4.8) k/uL PT (9.0-12.0) sec INR (<1.2) APTT (22.0-30.0) sec ABG pH (7.35-7.45) ABG pCO2 (35-45) mmHg ABG pO2 (83-108) mmHg ABG HCO3 (21-25) mmol/L ABG Total CO2 (19-24) mmol/L ABG O2 Saturation (94-97) % ABG Hematocrit (34.0-46.0) % ABG Sodium (135-146) mmol/L ABG Potassium (3.4-4.5) mmol/L ABG Ionized Calcium (4.5-5.3) mg/dL ABG Glucose (75-99) mg/dL ABG Lactic Acid (0.5-1.6) mmol/L Hemoglobin (13.0-17.5) gm/dL Sodium 146 H (137-145) mmol/L Chloride 111 H (98-107) mmol/L Carbon Dioxide 15 L (22-30) mmol/L Glucose 175 H (74-99) mg/dL POC Glucose (mg/dL) (75-99) mg/dL Plasma Lactic Acid Srini 17.6 H* (0.7-2.0) mmol/L Calcium 7.6 L (8.4-10.2) mg/dL Ionized Calcium [place] 4.1 L (4.5-5.3) mg/dL Total Bilirubin (0.2-1.3) mg/dL AST 67 H (17-59) U/L ALT (21-72) U/L Alkaline Phosphatase 25 L (38-126) U/L Total Protein 4.2 L (6.3-8.2) g/dL Albumin 2.8 L (3.5-5.0) g/dL Arterial Blood Potassium (3.4-4.5) mmol/L Arterial Blood Glucose (75-99) mg/dL Crossmatch 09/13/19 09/13/19 09/13/19 Range/Units 02:45 02:51 03:30 RBC (4.30-5.90) m/uL Hgb (13.0-17.5) gm/dL Hct (39.0-53.0) % Plt Count (150-450) k/uL Neutrophils # (1.3-7.7) k/uL Lymphocytes # (1.0-4.8) k/uL PT (9.0-12.0) sec INR (<1.2) APTT (22.0-30.0) sec ABG pH 7.29 L (7.35-7.45) ABG pCO2 30 L (35-45) mmHg ABG pO2 145 H (83-108) mmHg ABG HCO3 14 L (21-25) mmol/L ABG Total CO2 15 L (19-24) mmol/L ABG O2 Saturation 99.0 H (94-97) % ABG Hematocrit (34.0-46.0) % ABG Sodium (135-146) mmol/L ABG Potassium (3.4-4.5) mmol/L ABG Ionized Calcium (4.5-5.3) mg/dL ABG Glucose (75-99) mg/dL ABG Lactic Acid 17.6 H* (0.5-1.6) mmol/L Hemoglobin (13.0-17.5) gm/dL Sodium (137-145) mmol/L Chloride (98-107) mmol/L Carbon Dioxide (22-30) mmol/L Glucose (74-99) mg/dL POC Glucose (mg/dL) 145 H (75-99) mg/dL Plasma Lactic Acid Srini (0.7-2.0) mmol/L Calcium (8.4-10.2) mg/dL Ionized Calcium [place] (4.5-5.3) mg/dL Total Bilirubin (0.2-1.3) mg/dL AST (17-59) U/L ALT (21-72) U/L Alkaline Phosphatase (38-126) U/L Total Protein (6.3-8.2) g/dL Albumin (3.5-5.0) g/dL Arterial Blood Potassium (3.4-4.5) mmol/L Arterial Blood Glucose (75-99) mg/dL Crossmatch 09/13/19 09/13/19 09/13/19 Range/Units 04:37 05:04 06:24 RBC (4.30-5.90) m/uL Hgb (13.0-17.5) gm/dL Hct (39.0-53.0) % Plt Count (150-450) k/uL Neutrophils # (1.3-7.7) k/uL Lymphocytes # (1.0-4.8) k/uL PT (9.0-12.0) sec INR (<1.2) APTT (22.0-30.0) sec ABG pH 7.09 L* 7.12 L* 7.22 L (7.35-7.45) ABG pCO2 56 H 59 H 46 H (35-45) mmHg ABG pO2 128 H 68 L (83-108) mmHg ABG HCO3 17 L 19 L 19 L (21-25) mmol/L ABG Total CO2 (19-24) mmol/L ABG O2 Saturation 98.5 H 92.9 L (94-97) % ABG Hematocrit 23 L 24 L (34.0-46.0) % ABG Sodium 154 H 154 H (135-146) mmol/L ABG Potassium 3.2 L (3.4-4.5) mmol/L ABG Ionized Calcium 3.9 L 4.2 L (4.5-5.3) mg/dL ABG Glucose 193 H 181 H (75-99) mg/dL ABG Lactic Acid 19.0 H* 18.0 H* (0.5-1.6) mmol/L Hemoglobin 7.5 L 7.7 L (13.0-17.5) gm/dL Sodium (137-145) mmol/L Chloride (98-107) mmol/L Carbon Dioxide (22-30) mmol/L Glucose (74-99) mg/dL POC Glucose (mg/dL) (75-99) mg/dL Plasma Lactic Acid Srini (0.7-2.0) mmol/L Calcium (8.4-10.2) mg/dL Ionized Calcium [place] (4.5-5.3) mg/dL Total Bilirubin (0.2-1.3) mg/dL AST (17-59) U/L ALT (21-72) U/L Alkaline Phosphatase (38-126) U/L Total Protein (6.3-8.2) g/dL Albumin (3.5-5.0) g/dL Arterial Blood Potassium 3.2 L (3.4-4.5) mmol/L Arterial Blood Glucose 193 H 181 H (75-99) mg/dL Crossmatch 09/13/19 09/13/19 09/13/19 Range/Units 06:30 06:30 06:53 RBC 2.66 L (4.30-5.90) m/uL Hgb 8.5 L (13.0-17.5) gm/dL Hct 25.1 L (39.0-53.0) % Plt Count 74 L (150-450) k/uL Neutrophils # 8.8 H (1.3-7.7) k/uL Lymphocytes # 0.9 L (1.0-4.8) k/uL PT (9.0-12.0) sec INR (<1.2) APTT (22.0-30.0) sec ABG pH (7.35-7.45) ABG pCO2 (35-45) mmHg ABG pO2 (83-108) mmHg ABG HCO3 (21-25) mmol/L ABG Total CO2 (19-24) mmol/L ABG O2 Saturation (94-97) % ABG Hematocrit (34.0-46.0) % ABG Sodium (135-146) mmol/L ABG Potassium (3.4-4.5) mmol/L ABG Ionized Calcium (4.5-5.3) mg/dL ABG Glucose (75-99) mg/dL ABG Lactic Acid (0.5-1.6) mmol/L Hemoglobin (13.0-17.5) gm/dL Sodium 153 H (137-145) mmol/L Chloride 112 H (98-107) mmol/L Carbon Dioxide 20 L (22-30) mmol/L Glucose 122 H (74-99) mg/dL POC Glucose (mg/dL) 135 H (75-99) mg/dL Plasma Lactic Acid Srini (0.7-2.0) mmol/L Calcium 7.5 L (8.4-10.2) mg/dL Ionized Calcium [place] 4.2 L (4.5-5.3) mg/dL Total Bilirubin (0.2-1.3) mg/dL AST 165 H (17-59) U/L ALT 98 H (21-72) U/L Alkaline Phosphatase 22 L (38-126) U/L Total Protein 4.2 L (6.3-8.2) g/dL Albumin 2.8 L (3.5-5.0) g/dL Arterial Blood Potassium (3.4-4.5) mmol/L Arterial Blood Glucose (75-99) mg/dL Crossmatch 09/13/19 Range/Units 07:43 RBC (4.30-5.90) m/uL Hgb (13.0-17.5) gm/dL Hct (39.0-53.0) % Plt Count (150-450) k/uL Neutrophils # (1.3-7.7) k/uL Lymphocytes # (1.0-4.8) k/uL PT (9.0-12.0) sec INR (<1.2) APTT (22.0-30.0) sec ABG pH 7.28 L (7.35-7.45) ABG pCO2 (35-45) mmHg ABG pO2 126 H (83-108) mmHg ABG HCO3 18 L (21-25) mmol/L ABG Total CO2 (19-24) mmol/L ABG O2 Saturation 98.6 H (94-97) % ABG Hematocrit (34.0-46.0) % ABG Sodium (135-146) mmol/L ABG Potassium (3.4-4.5) mmol/L ABG Ionized Calcium (4.5-5.3) mg/dL ABG Glucose (75-99) mg/dL ABG Lactic Acid (0.5-1.6) mmol/L Hemoglobin (13.0-17.5) gm/dL Sodium (137-145) mmol/L Chloride (98-107) mmol/L Carbon Dioxide (22-30) mmol/L Glucose (74-99) mg/dL POC Glucose (mg/dL) (75-99) mg/dL Plasma Lactic Acid Srini (0.7-2.0) mmol/L Calcium (8.4-10.2) mg/dL Ionized Calcium [place] (4.5-5.3) mg/dL Total Bilirubin (0.2-1.3) mg/dL AST (17-59) U/L ALT (21-72) U/L Alkaline Phosphatase (38-126) U/L Total Protein (6.3-8.2) g/dL Albumin (3.5-5.0) g/dL Arterial Blood Potassium (3.4-4.5) mmol/L Arterial Blood Glucose (75-99) mg/dL Crossmatch - Imaging and Cardiology Chest x-ray: report reviewed, image reviewed Assessment and Plan Assessment: 1. Triple-vessel calcified coronary artery disease, non-STEMI in this admission, status post urgent two-vessel bypass 2. Severe aortic valve stenosis, status post bioprosthetic aortic valve replacement 3. Mild to moderate tricuspid valve regurgitation 4. Hypertension 5. Hyperlipidemia 6. History of ITP status post splenectomy 7. Type 2 diabetes mellitus, hemoglobin A1c 6.6% 8. Obesity 9. Previous tobacco dependence, moderate COPD with FEV1 54% of predicted 10. Postoperative lactic acidosis 11. Postoperative thrombocytopenia 12. Postoperative acute blood loss anemia with postoperative bleeding, status post reoperation with sternal exploration and evacuation of clots Plan: 1. Continue to optimize medical management with statin and beta robin. Will hold aspirin, Plavix for now secondary to thrombocytopenia 2. Mechanical ventilation management per Dr. Oquendo, bronchodilators per pulmonology 3. Will wean pressors as tolerated. 4. Will monitor daily x-rays and labs. Electrolyte replacement per protocol. No further transfusions at this time 5. Insulin management per primary care service 6. Pain control, sedation with current medication regimen 7. GI prophylaxis with Protonix. SCDs for DVT prophylaxis, hold SQ heparin for now secondary to thrombocytopenia 8. Once able to extubate, will encourage incentive spirometry 10 times every hour while awake, increase activity as tolerated 9. Will continue to monitor chest tube output closely 10. Keep [place] catheter for strict accurate intake and output 11. More recommendations to follow based on patient's clinical course. Time with Patient: Greater than 30
[2019-09-13] MEDS ORDERED: ASPIRIN 325 MG TAB PO SCH (09:00)
[2019-09-13] MEDS ORDERED: CLOPIDOGREL 75 MG TAB PO SCH (09:00)
[2019-09-13] MEDS: CHLORHEXIDINE GLUCONATE 15 ML CUP MUCOUS MEM SCH ×2 (09:09→20:04)
[2019-09-13] MEDS: PANTOPRAZOLE 40 MG/10 ML VIAL IVP SCH (09:09)
[2019-09-13] MEDS: ATORVASTATIN 40 MG TAB PO SCH (09:10)
[2019-09-13] MEDS: DEXTROSE 5% IN WATER 1,000 ML IV SCH (09:10)
[2019-09-13] MEDS: MAGNESIUM SULFATE-D5W PMX 1 GM in DEXTROSE/WATER 1 100ML.BAG IVPB SCH ×2 (09:22→10:36)
[2019-09-13] MEDS: METOPROLOL TARTRATE 12.5 MG TAB PO SCH ×2 (09:27→20:04)
[2019-09-13 09:35] LABS: Glucose,Whole Blood 109 mg/dL (75-99)
[2019-09-13] MEDS: MUPIROCIN 2% OINT 22 GM TUBE NASAL SCH ×2 (09:45→20:05)
[2019-09-13] MEDS: MILRINONE-D5W PMX 20 MG in DEXTROSE/WATER 1 100ML.BAG IV SCH ×2 (09:46→10:27)
--- NOTE | 2019-09-13 10:03 | P.PN ---
Subjective 69-year-old male with a past medical history of coronary artery disease status post CABG, aortic stenosis, type 2 diabetes mellitus, hyperlipidemia, obstructive sleep apnea on CPAP coming to the hospital with a chief complaint of syncope. Patient states for the past 1-2 months he has been having dizziness and feels lightheaded. Yesterday he felt dizzy and passed out for almost 5-10 minutes. Patient denies having any loss of bowel or bladder control. No tongue bites. He denies having any chest pain or palpitations. Patient states that he gets short of breath on taking a flight of stairs in the recent months. Patient has, motor that is consistent with severe aortic stenosis, he states that he has this murmur for a long period of time. Patient denies having any fevers chills or rigors. No cough or difficulty in breathing. No dysuria or hematuria. No alcohol pain nausea vomiting or diarrhea. No weakness of his extremities. No headaches or blurring of vision. No speech abnormalities. In the emergency room patient had a CT of the head that was showing no acute intracranial process. He also had a chest x-ray that is within normal limits and an EKG showing normal sinus rhythm. There is mild elevation of troponins at 0.047. The patient has been admitted for further management. On 09/08/2019 - patient is sitting up in a chair by the bedside comfortably. He had an episode of dizziness this morning when he tried to get from the room to his bathroom. He did not have a fall. His headaches are much better. He denie s having any chest pain. Mild shortness of breath. No cough. He denies having any fevers chills or rigors. No lower extremity swelling. Patient denies having any abdominal pain. Denies noticing any bleeding from any site. Patient's vitals have been stable. No acute events reported by nursing staff. Patient had an echocardiogram done this morning showing severe aortic stenosis. 09/09/2019 Patient will undergo cardiac catheterization and DAMARI today. Further management and plan depending on the DAMARI results of recent cardiac catheterization findings. Patient is complaining of mild lightheadedness no other significant symptoms at this time 09/10/2019 Patient is clinically doing well is found that there was a disease patient is being evaluated for CABG and aortic valve replacement. Patient is alert and oriented 3 to me but patient apparently was having some hallucinations which I believe secondary to benzodiazepines which were discontinued and Dilaudid will be discontinued and patient will need some nonpharmacological measures including ambulating the hallways will open of the windows and I believe this is secondary to sundowners and due to prolonged hospitalization 09/13/2019 Patient underwent coronary artery bypass grafting yesterday along with Arctic valve replacement patient the head bleeding and operative site area retro- cardiac bleeding for which patient has to borrow to go to or again for extubation and evacuation of clots patient received multiple blood product transfusion including PRBC transfusion. Patient is prior presently on multiple pressors including norepinephrine and vasopressin and Fco-Synephrine. Patient is also on milrinone and is receiving metoprolol as well. Patient is on patient is presently intubated sedated FiO2 of around 35% area patient is on D5W because of hypernatremia Review of systems: Unable to obtain due to his clinical condition All inpatient medications were reviewed and appropriate changes in these medications as dic tated in the interval history and assessment and plan. Objective - Vital Signs Vital signs: Vital Signs Temp 97.0 F L 09/13/19 08:15 Pulse 93 09/13/19 09:30 Resp 22 09/13/19 09:30 BP 86/38 09/12/19 16:52 Pulse Ox 97 09/13/19 09:30 Intake & Output 09/12/19 09/13/19 09/13/19 18:59 06:59 18:59 Intake Total 2200 3814.631 1164.805 Output Total 5300 2987 435 Balance -3100 827.631 729.805 Intake: IV 34 1305.0 88 ACETAMINOPHEN IV (For NPO 100 ) 1,000 mg In Empty Bag 1 bag @ 400 mls/hr IVPB Q6HR [facility] Rx#:[id number] Calcium Gluconate 1 gm In 200 Sodium Chloride 0.9% 100 ml @ 100 mls/hr IVPB ONCE ONE Rx#:[id number] Calcium Gluconate 1 gm In 200 Sodium Chloride 0.9% 100 ml @ 100 mls/hr IVPB ONCE ONE Rx#:[id number] Nitroglycerin-D5w Pmx 50 12.0 mg In Dextrose/Water 1 250ml.bag @ 5 MCG/MIN 1.5 mls/hr IV .Q24H [facility] Rx#: [id number] Pressure bag 72 18 Sodium Chloride 0.9% 1, 400 50 000 ml @ 50 mls/hr IV . Q20H [facility] Rx#:[id number] ceFAZolin 2 gm In Sodium 50 Chloride 0.9% 50 ml @ 100 mls/hr IVPB Q8H [facility] Rx#: [id number] co/ci 240 20 Intake, IV Titration 628.631 797.805 Amount Albumin Human 5% 250 ml 250 In Empty Bag 1 bag @ 250 mls/hr IVPB Q1HR PRN Rx#: [id number] Dextrose 5% in Water 1, 50 000 ml @ 50 mls/hr IV . Q20H [facility] Rx#:[id number] Insulin Regular 100 unit 18.533 20.55 In Sodium Chloride 0.9% 100 ml @ Titrate IV .Q0M [facility] Rx#:[id number] Milrinone-D5w Pmx 20 mg 40.285 100 In Dextrose/Water 1 100ml .bag @ Per Protocol IV . Q0M [facility] Rx#:[id number] Norepinephrine 32 mg In 238.452 11.548 Sodium Chloride 0.9% 218 ml @ 0.5 MCG/KG/MIN 25. 078 mls/hr IV .[id number] [facility] Rx#:[id number] Phenylephrine 40 mg In 80 Sodium Chloride 0.9% 250 ml @ 0.5 MCG/KG/MIN 20. 384 mls/hr IV .[id number] [facility] Rx#:[id number] Phenylephrine 40 mg In 254.000 237.808 Sodium Chloride 0.9% 250 ml @ 0.5 MCG/KG/MIN 20. 384 mls/hr IV .[id number] [facility] Rx#:[id number] Propofol 1,000 mg In 77.361 41.899 Empty Bag 1 bag @ Titrate IV .Q0M [facility] Rx#: [id number] Sodium Chloride 0.9% 150 6 ml @ 0.03 UNITS/MIN 4.59 mls/hr IV .Q24H [facility] with Vasopressin 60 unit Rx#: [id number] Blood Product 2166 6981 279 Ffp 24 Cpd Unit 330 [id number] Ffp 24 Cpd Unit 314 [id number] Ffp 24 Cpd Unit 303 [id number] Ffp 24 Cpd Unit 305 [id number] Ffp 24 Cpd Unit 312 [id number] Platelet Irr Pheresis 3 205 Acda Unit [id number] Platelet Irr Pheresis 3 203 Acda Unit [id number] Platelet Irr Pheresis Pas 0 279 -C Unit [id number] Pooled Cryoprecipitate 108 Unit [id number] Pooled Cryoprecipitate 107 Unit [id number] Rc As-1 Unit 310 [id number] Rc As-1 Unit 310 [id number] Rc As-1 Unit 310 [id number] Rc As-1 Unit 310 [id number] Rc As-1 Unit 310 [id number] Rc As-1 Unit 310 [id number] Output: Chest Tube Drainage 1897 60 Bilateral Mediastinal 60 Left Pleural/Mediastinal 397 Mediastinal 1500 left pleural 0 Urine 1300 490 375 Estimated Blood Loss 4000 600 Other: Voiding Method Indwelling Catheter ABP, PAP, CO, CI - Last Documented Arterial Blood Pressure 115/50 Pulmonary Artery Pressure 27/18 Cardiac Output 6.5 Cardiac Index 3.0 - Exam PHYSICAL EXAMINATION: GENERAL: Patient is intubated sedated HEENT: Pupils are round and equally reacting to light. EOMI. No scleral icterus. No conjunctival pallor. Normocephalic, atraumatic. No pharyngeal erythema. No thyromegaly. CARDIOVASCULAR: S1 and S2 present. No rubs, or gallops. systolic murmur and aortic area PULMONARY: Chest is clear to auscultation, no wheezing or crackles. Patient has 2 mediastinal and left pleural chest tubes, [place] in place ABDOMEN: Soft, nontender, nondistended, normoactive bowel sounds. No palpable organomegaly. MUSCULOSKELETAL: No joint swelling or deformity. EXTREMITIES: No cyanosis, clubbing, or pedal edema. NEUROLOGICAL: Moving all 4 limbs and sedated at this time SKIN: No rashes. - Labs CBC & Chem 7: 09/13/19 06:30 09/13/19 06:30 Labs: Abnormal Lab Results - Last 24 Hours (Table) 09/11/19 09/12/19 09/12/19 Range/Units 11:31 08:55 11:34 RBC (4.30-5.90) m/uL Hgb (13.0-17.5) gm/dL Hct (39.0-53.0) % Plt Count (150-450) k/uL Neutrophils # (1.3-7.7) k/uL Lymphocytes # (1.0-4.8) k/uL PT (9.0-12.0) sec INR (<1.2) APTT (22.0-30.0) sec ABG pH (7.35-7.45) ABG pCO2 48 H 51 H (35-45) mmHg ABG pO2 77 L 123 H (83-108) mmHg ABG HCO3 28 H 28 H (21-25) mmol/L ABG Total CO2 30 H 30 H (19-24) mmol/L ABG O2 Saturation 98.5 H (94-97) % ABG Hematocrit (34.0-46.0) % ABG Sodium (135-146) mmol/L ABG Potassium (3.4-4.5) mmol/L ABG Ionized Calcium (4.5-5.3) mg/dL ABG Glucose 131 H 146 H (75-99) mg/dL ABG Lactic Acid (0.5-1.6) mmol/L Hemoglobin (13.0-17.5) gm/dL Sodium (137-145) mmol/L Chloride (98-107) mmol/L Carbon Dioxide (22-30) mmol/L Glucose (74-99) mg/dL POC Glucose (mg/dL) (75-99) mg/dL Plasma Lactic Acid Srini (0.7-2.0) mmol/L Calcium (8.4-10.2) mg/dL Ionized Calcium [place] (4.5-5.3) mg/dL Total Bilirubin (0.2-1.3) mg/dL AST (17-59) U/L ALT (21-72) U/L Alkaline Phosphatase (38-126) U/L Total Protein (6.3-8.2) g/dL Albumin (3.5-5.0) g/dL Arterial Blood Potassium (3.4-4.5) mmol/L Arterial Blood Glucose 131 H 146 H (75-99) mg/dL Crossmatch See Detail 09/12/19 09/12/19 09/12/19 Range/Units 12:17 12:45 13:18 RBC (4.30-5.90) m/uL Hgb (13.0-17.5) gm/dL Hct (39.0-53.0) % Plt Count (150-450) k/uL Neutrophils # (1.3-7.7) k/uL Lymphocytes # (1.0-4.8) k/uL PT (9.0-12.0) sec INR (<1.2) APTT (22.0-30.0) sec ABG pH (7.35-7.45) ABG pCO2 (35-45) mmHg ABG pO2 >420 H 315 H 289 H (83-108) mmHg ABG HCO3 26 H 26 H (21-25) mmol/L ABG Total CO2 26 H 28 H 27 H (19-24) mmol/L ABG O2 Saturation 100.0 H 99.8 H 100.0 H (94-97) % ABG Hematocrit 32 L (34.0-46.0) % ABG Sodium (135-146) mmol/L ABG Potassium 5.0 H (3.4-4.5) mmol/L ABG Ionized Calcium 4.1 L 4.3 L 4.2 L (4.5-5.3) mg/dL ABG Glucose 147 H 160 H 226 H (75-99) mg/dL ABG Lactic Acid (0.5-1.6) mmol/L Hemoglobin 11.2 L 11.5 L 10.3 L (13.0-17.5) gm/dL Sodium (137-145) mmol/L Chloride (98-107) mmol/L Carbon Dioxide (22-30) mmol/L Glucose (74-99) mg/dL POC Glucose (mg/dL) (75-99) mg/dL Plasma Lactic Acid Srini (0.7-2.0) mmol/L Calcium (8.4-10.2) mg/dL Ionized Calcium [place] (4.5-5.3) mg/dL Total Bilirubin (0.2-1.3) mg/dL AST (17-59) U/L ALT (21-72) U/L Alkaline Phosphatase (38-126) U/L Total Protein (6.3-8.2) g/dL Albumin (3.5-5.0) g/dL Arterial Blood Potassium 5.0 H (3.4-4.5) mmol/L Arterial Blood Glucose 147 H 160 H 226 H (75-99) mg/dL Crossmatch 09/12/19 09/12/19 09/12/19 Range/Units 14:02 14:43 15:00 RBC (4.30-5.90) m/uL Hgb (13.0-17.5) gm/dL Hct (39.0-53.0) % Plt Count (150-450) k/uL Neutrophils # (1.3-7.7) k/uL Lymphocytes # (1.0-4.8) k/uL PT (9.0-12.0) sec INR (<1.2) APTT (22.0-30.0) sec ABG pH 7.22 L 7.26 L (7.35-7.45) ABG pCO2 61 H 53 H (35-45) mmHg ABG pO2 248 H 179 H >420 H (83-108) mmHg ABG HCO3 (21-25) mmol/L ABG Total CO2 26 H 27 H 25 H (19-24) mmol/L ABG O2 Saturation 99.8 H 99.1 H 100.0 H (94-97) % ABG Hematocrit 30 L 30 L 27 L (34.0-46.0) % ABG Sodium (135-146) mmol/L ABG Potassium 4.6 H 4.6 H (3.4-4.5) mmol/L ABG Ionized Calcium 4.2 L 4.2 L 4.1 L (4.5-5.3) mg/dL ABG Glucose 214 H 202 H 211 H (75-99) mg/dL ABG Lactic Acid 2.4 H* 2.8 H* 2.9 H* (0.5-1.6) mmol/L Hemoglobin 9.6 L 9.8 L 8.7 L (13.0-17.5) gm/dL Sodium (137-145) mmol/L Chloride (98-107) mmol/L Carbon Dioxide (22-30) mmol/L Glucose (74-99) mg/dL POC Glucose (mg/dL) (75-99) mg/dL Plasma Lactic Acid Srini (0.7-2.0) mmol/L Calcium (8.4-10.2) mg/dL Ionized Calcium [place] (4.5-5.3) mg/dL Total Bilirubin (0.2-1.3) mg/dL AST (17-59) U/L ALT (21-72) U/L Alkaline Phosphatase (38-126) U/L Total Protein (6.3-8.2) g/dL Albumin (3.5-5.0) g/dL Arterial Blood Potassium 4.6 H 4.6 H (3.4-4.5) mmol/L Arterial Blood Glucose 214 H 202 H 211 H (75-99) mg/dL Crossmatch 09/12/19 09/12/19 09/12/19 Range/Units 15:45 16:04 17:14 RBC (4.30-5.90) m/uL Hgb (13.0-17.5) gm/dL Hct (39.0-53.0) % Plt Count (150-450) k/uL Neutrophils # (1.3-7.7) k/uL Lymphocytes # (1.0-4.8) k/uL PT (9.0-12.0) sec INR (<1.2) APTT (22.0-30.0) sec ABG pH 7.34 L (7.35-7.45) ABG pCO2 (35-45) mmHg ABG pO2 392 H 262 H 221 H (83-108) mmHg ABG HCO3 (21-25) mmol/L ABG Total CO2 25 H (19-24) mmol/L ABG O2 Saturation 100.0 H 99.9 H 99.9 H (94-97) % ABG Hematocrit 24 L 22 L 21 L (34.0-46.0) % ABG Sodium (135-146) mmol/L ABG Potassium (3.4-4.5) mmol/L ABG Ionized Calcium 3.9 L 4.4 L 3.7 L (4.5-5.3) mg/dL ABG Glucose 201 H 187 H 151 H (75-99) mg/dL ABG Lactic Acid 4.4 H* 5.9 H* 5.2 H* (0.5-1.6) mmol/L Hemoglobin 7.7 L 7.3 L 6.8 L* (13.0-17.5) gm/dL Sodium (137-145) mmol/L Chloride (98-107) mmol/L Carbon Dioxide (22-30) mmol/L Glucose (74-99) mg/dL POC Glucose (mg/dL) (75-99) mg/dL Plasma Lactic Acid Srini (0.7-2.0) mmol/L Calcium (8.4-10.2) mg/dL Ionized Calcium [place] (4.5-5.3) mg/dL Total Bilirubin (0.2-1.3) mg/dL AST (17-59) U/L ALT (21-72) U/L Alkaline Phosphatase (38-126) U/L Total Protein (6.3-8.2) g/dL Albumin (3.5-5.0) g/dL Arterial Blood Potassium (3.4-4.5) mmol/L Arterial Blood Glucose 201 H 187 H 151 H (75-99) mg/dL Crossmatch 09/12/19 09/12/19 09/12/19 Range/Units 18:31 19:22 19:24 RBC (4.30-5.90) m/uL Hgb (13.0-17.5) gm/dL Hct (39.0-53.0) % Plt Count (150-450) k/uL Neutrophils # (1.3-7.7) k/uL Lymphocytes # (1.0-4.8) k/uL PT (9.0-12.0) sec INR (<1.2) APTT (22.0-30.0) sec ABG pH 7.27 L (7.35-7.45) ABG pCO2 50 H (35-45) mmHg ABG pO2 205 H 267 H (83-108) mmHg ABG HCO3 (21-25) mmol/L ABG Total CO2 25 H (19-24) mmol/L ABG O2 Saturation 99.7 H 99.6 H (94-97) % ABG Hematocrit 24 L (34.0-46.0) % ABG Sodium (135-146) mmol/L ABG Potassium (3.4-4.5) mmol/L ABG Ionized Calcium 4.2 L (4.5-5.3) mg/dL ABG Glucose 117 H (75-99) mg/dL ABG Lactic Acid 5.0 H* (0.5-1.6) mmol/L Hemoglobin 7.9 L (13.0-17.5) gm/dL Sodium (137-145) mmol/L Chloride (98-107) mmol/L Carbon Dioxide (22-30) mmol/L Glucose (74-99) mg/dL POC Glucose (mg/dL) 145 H (75-99) mg/dL Plasma Lactic Acid Srini (0.7-2.0) mmol/L Calcium (8.4-10.2) mg/dL Ionized Calcium [place] (4.5-5.3) mg/dL Total Bilirubin (0.2-1.3) mg/dL AST (17-59) U/L ALT (21-72) U/L Alkaline Phosphatase (38-126) U/L Total Protein (6.3-8.2) g/dL Albumin (3.5-5.0) g/dL Arterial Blood Potassium (3.4-4.5) mmol/L Arterial Blood Glucose 117 H (75-99) mg/dL Crossmatch 09/12/19 09/12/19 09/12/19 Range/Units 19:58 20:14 20:16 RBC (4.30-5.90) m/uL Hgb (13.0-17.5) gm/dL Hct (39.0-53.0) % Plt Count (150-450) k/uL Neutrophils # (1.3-7.7) k/uL Lymphocytes # (1.0-4.8) k/uL PT (9.0-12.0) sec INR (<1.2) APTT (22.0-30.0) sec ABG pH 7.28 L (7.35-7.45) ABG pCO2 46 H (35-45) mmHg ABG pO2 129 H (83-108) mmHg ABG HCO3 (21-25) mmol/L ABG Total CO2 (19-24) mmol/L ABG O2 Saturation 98.7 H (94-97) % ABG Hematocrit (34.0-46.0) % ABG Sodium (135-146) mmol/L ABG Potassium (3.4-4.5) mmol/L ABG Ionized Calcium (4.5-5.3) mg/dL ABG Glucose (75-99) mg/dL ABG Lactic Acid (0.5-1.6) mmol/L Hemoglobin (13.0-17.5) gm/dL Sodium (137-145) mmol/L Chloride (98-107) mmol/L Carbon Dioxide (22-30) mmol/L Glucose (74-99) mg/dL POC Glucose (mg/dL) 144 H 148 H (75-99) mg/dL Plasma Lactic Acid Srini (0.7-2.0) mmol/L Calcium (8.4-10.2) mg/dL Ionized Calcium [place] (4.5-5.3) mg/dL Total Bilirubin (0.2-1.3) mg/dL AST (17-59) U/L ALT (21-72) U/L Alkaline Phosphatase (38-126) U/L Total Protein (6.3-8.2) g/dL Albumin (3.5-5.0) g/dL Arterial Blood Potassium (3.4-4.5) mmol/L Arterial Blood Glucose (75-99) mg/dL Crossmatch 09/12/19 09/12/19 09/12/19 Range/Units 20:56 22:53 22:57 RBC (4.30-5.90) m/uL Hgb (13.0-17.5) gm/dL Hct (39.0-53.0) % Plt Count (150-450) k/uL Neutrophils # (1.3-7.7) k/uL Lymphocytes # (1.0-4.8) k/uL PT (9.0-12.0) sec INR (<1.2) APTT (22.0-30.0) sec ABG pH 7.22 L (7.35-7.45) ABG pCO2 (35-45) mmHg ABG pO2 (83-108) mmHg ABG HCO3 16 L (21-25) mmol/L ABG Total CO2 (19-24) mmol/L ABG O2 Saturation (94-97) % ABG Hematocrit (34.0-46.0) % ABG Sodium (135-146) mmol/L ABG Potassium (3.4-4.5) mmol/L ABG Ionized Calcium (4.5-5.3) mg/dL ABG Glucose (75-99) mg/dL ABG Lactic Acid (0.5-1.6) mmol/L Hemoglobin (13.0-17.5) gm/dL Sodium (137-145) mmol/L Chloride (98-107) mmol/L Carbon Dioxide (22-30) mmol/L Glucose (74-99) mg/dL POC Glucose (mg/dL) 116 H 161 H (75-99) mg/dL Plasma Lactic Acid Srini (0.7-2.0) mmol/L Calcium (8.4-10.2) mg/dL Ionized Calcium [place] (4.5-5.3) mg/dL Total Bilirubin (0.2-1.3) mg/dL AST (17-59) U/L ALT (21-72) U/L Alkaline Phosphatase (38-126) U/L Total Protein (6.3-8.2) g/dL Albumin (3.5-5.0) g/dL Arterial Blood Potassium (3.4-4.5) mmol/L Arterial Blood Glucose (75-99) mg/dL Crossmatch 09/12/19 09/12/19 09/12/19 Range/Units 23:21 23:50 Unknown RBC (4.30-5.90) m/uL Hgb (13.0-17.5) gm/dL Hct (39.0-53.0) % Plt Count (150-450) k/uL Neutrophils # (1.3-7.7) k/uL Lymphocytes # (1.0-4.8) k/uL PT 12.5 H (9.0-12.0) sec INR 1.2 H (<1.2) APTT 32.9 H (22.0-30.0) sec ABG pH (7.35-7.45) ABG pCO2 (35-45) mmHg ABG pO2 (83-108) mmHg ABG HCO3 (21-25) mmol/L ABG Total CO2 (19-24) mmol/L ABG O2 Saturation (94-97) % ABG Hematocrit (34.0-46.0) % ABG Sodium (135-146) mmol/L ABG Potassium (3.4-4.5) mmol/L ABG Ionized Calcium (4.5-5.3) mg/dL ABG Glucose (75-99) mg/dL ABG Lactic Acid 12.6 H* (0.5-1.6) mmol/L Hemoglobin (13.0-17.5) gm/dL Sodium (137-145) mmol/L Chloride (98-107) mmol/L Carbon Dioxide (22-30) mmol/L Glucose (74-99) mg/dL POC Glucose (mg/dL) 162 H (75-99) mg/dL Plasma Lactic Acid Srini (0.7-2.0) mmol/L Calcium (8.4-10.2) mg/dL Ionized Calcium [place] (4.5-5.3) mg/dL Total Bilirubin (0.2-1.3) mg/dL AST (17-59) U/L ALT (21-72) U/L Alkaline Phosphatase (38-126) U/L Total Protein (6.3-8.2) g/dL Albumin (3.5-5.0) g/dL Arterial Blood Potassium (3.4-4.5) mmol/L Arterial Blood Glucose (75-99) mg/dL Crossmatch 09/12/19 09/12/19 09/13/19 Range/Units Unknown Unknown 00:11 RBC 2.29 L (4.30-5.90) m/uL Hgb 7.5 L D (13.0-17.5) gm/dL Hct 22.1 L (39.0-53.0) % Plt Count 49 L D (150-450) k/uL Neutrophils # 8.2 H (1.3-7.7) k/uL Lymphocytes # (1.0-4.8) k/uL PT (9.0-12.0) sec INR (<1.2) APTT (22.0-30.0) sec ABG pH 7.25 L (7.35-7.45) ABG pCO2 (35-45) mmHg ABG pO2 (83-108) mmHg ABG HCO3 15 L (21-25) mmol/L ABG Total CO2 (19-24) mmol/L ABG O2 Saturation 98.0 H (94-97) % ABG Hematocrit (34.0-46.0) % ABG Sodium (135-146) mmol/L ABG Potassium (3.4-4.5) mmol/L ABG Ionized Calcium (4.5-5.3) mg/dL ABG Glucose (75-99) mg/dL ABG Lactic Acid (0.5-1.6) mmol/L Hemoglobin (13.0-17.5) gm/dL Sodium (137-145) mmol/L Chloride 111 H (98-107) mmol/L Carbon Dioxide (22-30) mmol/L Glucose 130 H (74-99) mg/dL POC Glucose (mg/dL) (75-99) mg/dL Plasma Lactic Acid Srini (0.7-2.0) mmol/L Calcium 7.1 L (8.4-10.2) mg/dL Ionized Calcium [place] 4.2 L (4.5-5.3) mg/dL Total Bilirubin 1.4 H (0.2-1.3) mg/dL AST (17-59) U/L ALT (21-72) U/L Alkaline Phosphatase <20 L (38-126) U/L Total Protein 4.7 L (6.3-8.2) g/dL Albumin 3.1 L (3.5-5.0) g/dL Arterial Blood Potassium (3.4-4.5) mmol/L Arterial Blood Glucose (75-99) mg/dL Crossmatch 09/13/19 09/13/19 09/13/19 Range/Units 00:57 02:00 02:06 RBC (4.30-5.90) m/uL Hgb (13.0-17.5) gm/dL Hct (39.0-53.0) % Plt Count (150-450) k/uL Neutrophils # (1.3-7.7) k/uL Lymphocytes # (1.0-4.8) k/uL PT (9.0-12.0) sec INR (<1.2) APTT 32.5 H (22.0-30.0) sec ABG pH 7.28 L (7.35-7.45) ABG pCO2 31 L (35-45) mmHg ABG pO2 (83-108) mmHg ABG HCO3 15 L (21-25) mmol/L ABG Total CO2 16 L (19-24) mmol/L ABG O2 Saturation 98.2 H (94-97) % ABG Hematocrit (34.0-46.0) % ABG Sodium (135-146) mmol/L ABG Potassium (3.4-4.5) mmol/L ABG Ionized Calcium (4.5-5.3) mg/dL ABG Glucose (75-99) mg/dL ABG Lactic Acid (0.5-1.6) mmol/L Hemoglobin (13.0-17.5) gm/dL Sodium (137-145) mmol/L Chloride (98-107) mmol/L Carbon Dioxide (22-30) mmol/L Glucose (74-99) mg/dL POC Glucose (mg/dL) 160 H (75-99) mg/dL Plasma Lactic Acid Srini (0.7-2.0) mmol/L Calcium (8.4-10.2) mg/dL Ionized Calcium [place] (4.5-5.3) mg/dL Total Bilirubin (0.2-1.3) mg/dL AST (17-59) U/L ALT (21-72) U/L Alkaline Phosphatase (38-126) U/L Total Protein (6.3-8.2) g/dL Albumin (3.5-5.0) g/dL Arterial Blood Potassium (3.4-4.5) mmol/L Arterial Blood Glucose (75-99) mg/dL Crossmatch 09/13/19 09/13/19 09/13/19 Range/Units 02:45 02:45 02:45 RBC 2.87 L (4.30-5.90) m/uL Hgb 9.2 L D (13.0-17.5) gm/dL Hct 27.6 L (39.0-53.0) % Plt Count 78 L D (150-450) k/uL Neutrophils # 8.4 H (1.3-7.7) k/uL Lymphocytes # 0.8 L (1.0-4.8) k/uL PT (9.0-12.0) sec INR (<1.2) APTT (22.0-30.0) sec ABG pH (7.35-7.45) ABG pCO2 (35-45) mmHg ABG pO2 (83-108) mmHg ABG HCO3 (21-25) mmol/L ABG Total CO2 (19-24) mmol/L ABG O2 Saturation (94-97) % ABG Hematocrit (34.0-46.0) % ABG Sodium (135-146) mmol/L ABG Potassium (3.4-4.5) mmol/L ABG Ionized Calcium (4.5-5.3) mg/dL ABG Glucose (75-99) mg/dL ABG Lactic Acid (0.5-1.6) mmol/L Hemoglobin (13.0-17.5) gm/dL Sodium 146 H (137-145) mmol/L Chloride 111 H (98-107) mmol/L Carbon Dioxide 15 L (22-30) mmol/L Glucose 175 H (74-99) mg/dL POC Glucose (mg/dL) (75-99) mg/dL Plasma Lactic Acid Srini 17.6 H* (0.7-2.0) mmol/L Calcium 7.6 L (8.4-10.2) mg/dL Ionized Calcium [place] 4.1 L (4.5-5.3) mg/dL Total Bilirubin (0.2-1.3) mg/dL AST 67 H (17-59) U/L ALT (21-72) U/L Alkaline Phosphatase 25 L (38-126) U/L Total Protein 4.2 L (6.3-8.2) g/dL Albumin 2.8 L (3.5-5.0) g/dL Arterial Blood Potassium (3.4-4.5) mmol/L Arterial Blood Glucose (75-99) mg/dL Crossmatch 09/13/19 09/13/19 09/13/19 Range/Units 02:45 02:51 03:30 RBC (4.30-5.90) m/uL Hgb (13.0-17.5) gm/dL Hct (39.0-53.0) % Plt Count (150-450) k/uL Neutrophils # (1.3-7.7) k/uL Lymphocytes # (1.0-4.8) k/uL PT (9.0-12.0) sec INR (<1.2) APTT (22.0-30.0) sec ABG pH 7.29 L (7.35-7.45) ABG pCO2 30 L (35-45) mmHg ABG pO2 145 H (83-108) mmHg ABG HCO3 14 L (21-25) mmol/L ABG Total CO2 15 L (19-24) mmol/L ABG O2 Saturation 99.0 H (94-97) % ABG Hematocrit (34.0-46.0) % ABG Sodium (135-146) mmol/L ABG Potassium (3.4-4.5) mmol/L ABG Ionized Calcium (4.5-5.3) mg/dL ABG Glucose (75-99) mg/dL ABG Lactic Acid 17.6 H* (0.5-1.6) mmol/L Hemoglobin (13.0-17.5) gm/dL Sodium (137-145) mmol/L Chloride (98-107) mmol/L Carbon Dioxide (22-30) mmol/L Glucose (74-99) mg/dL POC Glucose (mg/dL) 145 H (75-99) mg/dL Plasma Lactic Acid Srini (0.7-2.0) mmol/L Calcium (8.4-10.2) mg/dL Ionized Calcium [place] (4.5-5.3) mg/dL Total Bilirubin (0.2-1.3) mg/dL AST (17-59) U/L ALT (21-72) U/L Alkaline Phosphatase (38-126) U/L Total Protein (6.3-8.2) g/dL Albumin (3.5-5.0) g/dL Arterial Blood Potassium (3.4-4.5) mmol/L Arterial Blood Glucose (75-99) mg/dL Crossmatch 09/13/19 09/13/19 09/13/19 Range/Units 04:37 05:04 06:24 RBC (4.30-5.90) m/uL Hgb (13.0-17.5) gm/dL Hct (39.0-53.0) % Plt Count (150-450) k/uL Neutrophils # (1.3-7.7) k/uL Lymphocytes # (1.0-4.8) k/uL PT (9.0-12.0) sec INR (<1.2) APTT (22.0-30.0) sec ABG pH 7.09 L* 7.12 L* 7.22 L (7.35-7.45) ABG pCO2 56 H 59 H 46 H (35-45) mmHg ABG pO2 128 H 68 L (83-108) mmHg ABG HCO3 17 L 19 L 19 L (21-25) mmol/L ABG Total CO2 (19-24) mmol/L ABG O2 Saturation 98.5 H 92.9 L (94-97) % ABG Hematocrit 23 L 24 L (34.0-46.0) % ABG Sodium 154 H 154 H (135-146) mmol/L ABG Potassium 3.2 L (3.4-4.5) mmol/L ABG Ionized Calcium 3.9 L 4.2 L (4.5-5.3) mg/dL ABG Glucose 193 H 181 H (75-99) mg/dL ABG Lactic Acid 19.0 H* 18.0 H* (0.5-1.6) mmol/L Hemoglobin 7.5 L 7.7 L (13.0-17.5) gm/dL Sodium (137-145) mmol/L Chloride (98-107) mmol/L Carbon Dioxide (22-30) mmol/L Glucose (74-99) mg/dL POC Glucose (mg/dL) (75-99) mg/dL Plasma Lactic Acid Srini (0.7-2.0) mmol/L Calcium (8.4-10.2) mg/dL Ionized Calcium [place] (4.5-5.3) mg/dL Total Bilirubin (0.2-1.3) mg/dL AST (17-59) U/L ALT (21-72) U/L Alkaline Phosphatase (38-126) U/L Total Protein (6.3-8.2) g/dL Albumin (3.5-5.0) g/dL Arterial Blood Potassium 3.2 L (3.4-4.5) mmol/L Arterial Blood Glucose 193 H 181 H (75-99) mg/dL Crossmatch 09/13/19 09/13/19 09/13/19 Range/Units 06:30 06:30 06:53 RBC 2.66 L (4.30-5.90) m/uL Hgb 8.5 L (13.0-17.5) gm/dL Hct 25.1 L (39.0-53.0) % Plt Count 74 L (150-450) k/uL Neutrophils # 8.8 H (1.3-7.7) k/uL Lymphocytes # 0.9 L (1.0-4.8) k/uL PT (9.0-12.0) sec INR (<1.2) APTT (22.0-30.0) sec ABG pH (7.35-7.45) ABG pCO2 (35-45) mmHg ABG pO2 (83-108) mmHg ABG HCO3 (21-25) mmol/L ABG Total CO2 (19-24) mmol/L ABG O2 Saturation (94-97) % ABG Hematocrit (34.0-46.0) % ABG Sodium (135-146) mmol/L ABG Potassium (3.4-4.5) mmol/L ABG Ionized Calcium (4.5-5.3) mg/dL ABG Glucose (75-99) mg/dL ABG Lactic Acid (0.5-1.6) mmol/L Hemoglobin (13.0-17.5) gm/dL Sodium 153 H (137-145) mmol/L Chloride 112 H (98-107) mmol/L Carbon Dioxide 20 L (22-30) mmol/L Glucose 122 H (74-99) mg/dL POC Glucose (mg/dL) 135 H (75-99) mg/dL Plasma Lactic Acid Srini (0.7-2.0) mmol/L Calcium 7.5 L (8.4-10.2) mg/dL Ionized Calcium [place] 4.2 L (4.5-5.3) mg/dL Total Bilirubin (0.2-1.3) mg/dL AST 165 H (17-59) U/L ALT 98 H (21-72) U/L Alkaline Phosphatase 22 L (38-126) U/L Total Protein 4.2 L (6.3-8.2) g/dL Albumin 2.8 L (3.5-5.0) g/dL Arterial Blood Potassium (3.4-4.5) mmol/L Arterial Blood Glucose (75-99) mg/dL Crossmatch 09/13/19 09/13/19 09/13/19 Range/Units 07:43 08:21 09:32 RBC (4.30-5.90) m/uL Hgb (13.0-17.5) gm/dL Hct (39.0-53.0) % Plt Count (150-450) k/uL Neutrophils # (1.3-7.7) k/uL Lymphocytes # (1.0-4.8) k/uL PT (9.0-12.0) sec INR (<1.2) APTT (22.0-30.0) sec ABG pH 7.28 L (7.35-7.45) ABG pCO2 (35-45) mmHg ABG pO2 126 H (83-108) mmHg ABG HCO3 18 L (21-25) mmol/L ABG Total CO2 (19-24) mmol/L ABG O2 Saturation 98.6 H (94-97) % ABG Hematocrit (34.0-46.0) % ABG Sodium (135-146) mmol/L ABG Potassium (3.4-4.5) mmol/L ABG Ionized Calcium (4.5-5.3) mg/dL ABG Glucose (75-99) mg/dL ABG Lactic Acid (0.5-1.6) mmol/L Hemoglobin (13.0-17.5) gm/dL Sodium (137-145) mmol/L Chloride (98-107) mmol/L Carbon Dioxide (22-30) mmol/L Glucose (74-99) mg/dL POC Glucose (mg/dL) 102 H 109 H (75-99) mg/dL Plasma Lactic Acid [place]ini (0.7-2.0) mmol/L Calcium (8.4-10.2) mg/dL Ionized Calcium [place] (4.5-5.3) mg/dL Total Bilirubin (0.2-1.3) mg/dL AST (17-59) U/L ALT (21-72) U/L Alkaline Phosphatase (38-126) U/L Total Protein (6.3-8.2) g/dL Albumin (3.5-5.0) g/dL Arterial Blood Potassium (3.4-4.5) mmol/L Arterial Blood Glucose (75-99) mg/dL Crossmatch Assessment and Plan Plan: -Triple vessel coronary artery disease with a non-ST elevation myocardial infarction on admission status post CABG. [place]-severe aortic stenosis status post bioprosthetic valve replacement. -Mild to moderate tricuspid regurgitation -Postoperative bleeding status post exploration and evacuation of blood clots -Respiratory failure postoperatively patient is on ventilatory support at this time -Hyponatremia because of multiple IV fluid transfusion as patient is on D5w at this time. -Postoperative shock probably hypovolemic patient is on multiple pressors as mentioned above dysuria multiple units of blood transfusion - non-ST elevation myocardial infarction with triple vessel disease -Type 2 diabetes mellitus -Hypertension -Hyperlipidemia #Obstructive sleep apnea
[2019-09-13 10:20] LABS: Glucose,Whole Blood 162 mg/dL (75-99)
[2019-09-13 10:43] LABS: INR 1.1 (<1.2); Partial Thromboplastin Time 26.3 sec (22.0-30.0); Prothrombin Time 11.8 sec (9.0-12.0)
[2019-09-13 10:44] LABS: HCT 23.4 % (39.0-53.0); HGB 7.8 gm/dL (13.0-17.5); MCH 31.1 pg (25.0-35.0); MCHC 33.4 g/dL (31.0-37.0); MCV 93.1 fL (80.0-100.0); Mean Platelet Volume 9.1; RBC 2.51 m/uL (4.30-5.90); RDW 14.7 % (11.5-15.5); WBC 12.5 k/uL (3.8-10.6)
[2019-09-13 10:45] LABS: Albumin 2.9 g/dL (3.5-5.0); Calcium 7.4 mg/dL (8.4-10.2); Potassium 4.7 mmol/L (3.5-5.1); Total Bilirubin 0.6 mg/dL (0.2-1.3); Total Protein 4.3 g/dL (6.3-8.2)
[2019-09-13] MEDS ORDERED: ALBUMIN HUMAN 5% 250 ML in EMPTY BAG 1 BAG IVPB ONE (10:45)
--- NOTE | 2019-09-13 10:50 | PN ---
PROGRESS NOTE Mr. Nelson is a 69-year-old male, status post coronary artery bypass grafting, underwent redo coronary bypass grafting and aortic valve placement yesterday, had to be taken back to the operating room early in the morning because of recurrent bleeding from the mediastinal tube. He remains intubated on vasopressors in sinus mechanism with good urinary output. He has underwent aortic valve replacement with coronary artery bypass grafting to the RCA into the left circumflex. He is at this time on vasopressin, norepinephrine, Milrinone and the dose of his pressors have been decreased gradually. PHYSICAL EXAMINATION: Blood pressure in the 90s with a heart rate in the 90s and low 100s. LUNGS: Clear to auscultation anteriorly. HEART: Regular rate and rhythm S1, S2 with systolic murmur no rub. ABDOMEN: Soft. Hypoactive bowel sounds. EXTREMITIES: Dressing in place. Neurologically he is sedated and intubated. LAB DATA: Revealed a pH of 7.28, PO2 of 126, pCO2 of 38. His BUN and creatinine 12 and 1.1. IMPRESSION: 1. Status post redo coronary bypass grafting with aortic valve replacement and coronary artery bypass grafting. 2. Postoperative mediastinal bleed requiring returned to the operating room. 3. Hypotension requiring multiple vasopressor. 4. History of diabetes. 5. History of chronic obstructive lung disease. RECOMMENDATION: From the cardiac standpoint, will continue present therapy. Hopefully continue to wean the vasopressors gradually and follow his renal function. Depending on his progress, further recommendation will be made. MMODL / IJN: [id number] /
[2019-09-13 11:16] LABS: Glucose,Whole Blood 156 mg/dL (75-99)
[2019-09-13 11:18] LABS: ABG Base Excess -8.3 mmol/L; ABG HCO3 18 mmol/L (21-25); ABG Oxygen Saturation 98.2 % (94-97); ABG PCO2 37 mmHg (35-45); ABG PO2 106 mmHg (83-108); ABG TCO2 19 mmol/L (19-24)
--- NOTE | 2019-09-13 11:28 | PN ---
PROGRESS NOTE PULMONARY/CRITICAL CARE PROGRESS NOTE: DATE OF SERVICE: 09/13/2019 This is a patient who is 69 years of age. He was seen in consultation by our service on September 11. The patient underwent aortic valve replacement, coronary artery bypass grafting x2 and left atrial appendage excision yesterday. He is postop day #1. Unfortunately, the patient had complications after surgery, had to go back to the operating room for bleeding and so forth. Anyway, the details of that can be seen in the note by Cardiothoracic Surgery and the nursing notes. Anyway, he finally came out of the OR this morning. He is currently on the volume assist-control mode rate of 22, tidal volume 550, FiO2 is 70% to be dropped to 60%, and PEEP of 10. Blood gases show a pO2 of 126, pCO2 of 38, pH 7.28. With those blood gases, he did receive 2 amps of sodium bicarbonate. Currently, he is on multiple drips including a propofol at 30 mcg/kg per minute, norepinephrine at 40 mcg/minute, vasopressin at 0.02 units/minute, Fco-Synephrine at 214 mcg/minute, Primacor 0.2 mcg/kg per minute and insulin is currently on hold. His saline IV is at 50 mL an hour. During the course of the episode last night, where he was found to be bleeding, he did receive 4 units of PRBCs, 2 units of platelets and 1 unit of FFP. In addition, he received multiple amps of sodium bicarbonate for persistent metabolic acidosis. Currently, he seems to be relatively stable back in the ICU. I did speak to Dr. Vela about the case this morning. Current vital signs are reviewed. His current temperature is 97.6, heart rate is 100, respiratory rate is 12 to 22, blood pressure is 107/57. His pulmonary artery pressure is 24/17 and his saturations are 98%. That is on FiO2 of 60% and 10 of PEEP. The patient is currently sedated. He is in the ICU in room 253 on the ventilator. HEENT: Examination is grossly unremarkable. An oral endotracheal tube is noted. NECK: Supple. CARDIOVASCULAR: Examination reveals regular rhythm and rate. Heart rate is 100. S1, S2 normal. Heart sounds are distant. LUNGS: Reveal some diffuse rhonchi. Breath sounds equal bilaterally. ABDOMEN: Soft. EXTREMITIES: Intact. No edema. SKIN: Without rash. NEUROLOGIC: Examination could not be properly assessed. LABS: Reviewed. White count is 10.6, hemoglobin 8.5, hematocrit 25.1, platelet count 74,000. Blood gases have been noted. Sodium 153, potassium 4.1, chloride 112, CO2 is 20, BUN and creatinine are 12 and 1.12, anion gap is 21, calcium 7.5, ionized calcium 4.2. AST, ALT were 165 and 98 respectively. Albumin 2.8. Microbiology is pending or negative. Chest x-ray shows postsurgical changes. Endotracheal tube is about 4.5 cm above the tracheal paulino. PA catheter seems to be in good position. There is some minimal diffuse infiltrates more on the left than on the right lung, which could relate to just plain atelectasis and/or fluid. Medications are reviewed. ASSESSMENT: 1. Postoperative day #1 status post aortic valve replacement for aortic stenosis, 2 vessel bypass grafting and left atrial appendage excision. 2. Postoperative ventilator management. 3. Postoperative mediastinal bleeding, requiring a trip back to the operating room. 4. History of severe triple-vessel coronary artery disease. 5. Previous bypass grafting [place] [address] Alba. 6. History of severe aortic stenosis. 7. Diabetes mellitus. 8. Moderately severe chronic obstructive pulmonary disease. 9. Anion gap metabolic acidosis. 10.Hypernatremia. PLAN: The patient obviously is very critically ill. Will continue to monitor him here in the ICU. I will make mention to Cardiothoracic Surgery about changing his saline to D5W given his hypernatremia. FiO2 is dropped from 70% to 60%. The patient is on multiple vasopressors including norepinephrine, vasopressin and Fco-Synephrine. Will continue to follow. I did tell the respiratory therapist to continue to wean his FiO2 based on his saturations. Additional recommendations and suggestions are forthcoming. Prognosis is guarded. Critical care time 35 minutes. MMODL / IJN: [id number] /
[2019-09-13 11:29] LABS: Anisocytosis (M) Present; Band Neutrophils % 18 %; Lymphocytes # (M) 1.88 k/uL (1.0-4.8); Metamyelocytes # (M) 0.75 k/uL (0); Metamyelocytes % 6 %; Monocytes # (M) 0.38 k/uL (0-1.0); Myelocytes # (M) 0.25 k/uL (0); Myelocytes % 2 %; Neutrophils % (M) 57 %; Nucleated Red Blood Cells 0 /100 WBC (0-0); Platelet Count 95 k/uL (150-450); Poikilocytosis (M) Present; Polychromasia Present; Total Cells Counted 200
[2019-09-13] MEDS ORDERED: CALCIUM GLUCONATE 2 GM in SODIUM CHLORIDE 0.9% 100 ML IVPB ONE (11:30)
[2019-09-13 12:29] LABS: Glucose,Whole Blood 141 mg/dL (75-99)
[2019-09-13 13:32] LABS: Glucose,Whole Blood 142 mg/dL (75-99)
[2019-09-13 14:07] LABS: ABG Base Excess -3.2 mmol/L; ABG HCO3 22 mmol/L (21-25); ABG Oxygen Saturation 95.8 % (94-97); ABG PCO2 36 mmHg (35-45); ABG PH 7.39 (7.35-7.45); ABG PO2 71 mmHg (83-108); ABG TCO2 23 mmol/L (19-24)
[2019-09-13 14:08] LABS: Glucose,Whole Blood 195 mg/dL (75-99)
[2019-09-13 15:18] LABS: Glucose,Whole Blood 161 mg/dL (75-99)
[2019-09-13 16:25] LABS: Glucose,Whole Blood 147 mg/dL (75-99)
[2019-09-13 17:15] LABS: Glucose,Whole Blood 143 mg/dL (75-99)
[2019-09-13] MEDS: CLEVIDIPINE BUTYRATE 25 MG in EMPTY BAG 1 BAG IV SCH (17:59)
[2019-09-13 18:09] LABS: Glucose,Whole Blood 191 mg/dL (75-99)
[2019-09-13] MEDS: INSULIN REGULAR 100 UNIT in SODIUM CHLORIDE 0.9% 100 ML IV SCH (18:11)
[2019-09-13 19:06] LABS: Glucose,Whole Blood 160 mg/dL (75-99)
[2019-09-13 20:01] LABS: Glucose,Whole Blood 173 mg/dL (75-99)
[2019-09-13] MEDS: SENNOSIDES-DOCUSATE SODIUM 1 EACH TAB PO SCH (20:05)
--- NOTE | 2019-09-13 20:23 | OP ---
OPERATIVE REPORT DATE OF THE SURGERY: 09/13/2019. SURGEON: Dr. Barry Vela. [employer] RESOURCE MANAGER: LIANNE Garcia. PREOPERATIVE DIAGNOSES: Status post redo coronary artery bypass grafting and aortic valve replacement, mediastinal bleeding with early tamponade. POSTOPERATIVE DIAGNOSES: Status post redo coronary artery bypass grafting and aortic valve replacement, mediastinal bleeding with early tamponade. No obvious source of bleeding. PROCEDURE PERFORMED: Mediastinal exploration and evacuation of pericardial clots. INDICATION FOR SURGERY: Patient is status post redo coronary artery bypass grafting and aortic valve replacement of around 12 hours ago. The patient on and on mediastinal bleeding. He started to show signs of early tamponade with increased vasopressor requirement. That was despite correcting his coagulopathy. Decision was made to proceed with urgent reexploration. DESCRIPTION OF PROCEDURE: The patient was transferred to the operating room on vasopressors and Primacor with a systolic blood pressure of around 110 leaving the intensive care unit. He was put in on the table, prepped and draped. His pressure precipitously went down as we were about to open the chest. The chest was opened expeditiously by incising the skin, cutting all the suture material and removing all sternal wires. As soon as the sternum was spread, the hemodynamics improved. We proceeded at evacuating the mediastinal clot. All the clots were on the inferior aspect of the pericardium by the diaphragmatic surface of the right ventricle and in the posterolateral pericardium. Hemodynamics improved to the point that I was able albeit with some difficulty to move the heart medially. The apex was not bleeding and that was an area that we addressed during the first surgery. The lateral wall appeared to be intact as well as the venous graft without obvious source of bleeding. Again, there was a large amount of clot though posterolaterally. Once we removed the clot, there was no blood noticed in the posterior pericardium or posterolaterally despite waiting quite a while. I sprayed some Surgicel in the back of the heart. Drains were clean and one 19-Anguillan Miguel drain that was placed during the initial surgery was placed in the posterior pericardium and the other was left substernally. The ventricular pacing wire that had been dislodged was affixed to the anterior aspect of the right ventricle with a Prolene 6-0. After ensuring adequate hemostasis and hemodynamics and after correct sponge, instrument, and needle count, the sternum was closed with 5 [id number] pionneer cable. Thorough irrigation performed. The rest of the closure proceeded in layers. The cardiac index was 3, mean artery pressure was 95 and PA pressure was 45/33 at the end of the case. DAMARI had shown good LV and RV function throughout. The aortic valve was functioning well. The vein graft and radial artery appeared to be well pressurized in the case. MMODL / IJN: [id number] / [facility] MEDICAL CENTEROlga
[2019-09-13 21:19] LABS: Glucose,Whole Blood 168 mg/dL (75-99)
[2019-09-13 22:21] LABS: Glucose,Whole Blood 169 mg/dL (75-99)
[2019-09-13 22:35] LABS: HCT 21.1 % (39.0-53.0); HGB 7.2 gm/dL (13.0-17.5); MCV 91.1 fL (80.0-100.0); Mean Platelet Volume 10.5; Poikilocytosis Slight; RBC 2.32 m/uL (4.30-5.90); RDW 15.3 % (11.5-15.5); WBC 12.5 k/uL (3.8-10.6)
[2019-09-13 22:45] LABS: ALT 238 U/L (21-72); AST 419 U/L (17-59); African American GFR (CKD) >90 (>60 ml/min/1.73 sqM); Albumin 2.8 g/dL (3.5-5.0); Alkaline Phosphatase 27 U/L (38-126); Anion Gap 11 mmol/L; Blood Urea Nitrogen 16 mg/dL (9-20); Calcium 7.8 mg/dL (8.4-10.2); Carbon Dioxide 26 mmol/L (22-30); Chloride 112 mmol/L (98-107); Glucose 169 mg/dL (74-99); Magnesium 2.1 mg/dL (1.6-2.3); Non-African American GFR(CKD) 83 (>60 ml/min/1.73 sqM); Potassium 4.2 mmol/L (3.5-5.1); Sodium 149 mmol/L (137-145); Total Bilirubin 0.4 mg/dL (0.2-1.3); Total Protein 4.4 g/dL (6.3-8.2)
[2019-09-13 22:57] LABS: Platelet Count 84 k/uL (150-450)
[2019-09-13 23:08] LABS: Glucose,Whole Blood 179 mg/dL (75-99)
[2019-09-13 23:55] LABS: Glucose,Whole Blood 157 mg/dL (75-99)
[2019-09-14] MEDS: PHENYLEPHRINE 40 MG in SODIUM CHLORIDE 0.9% 250 ML IV SCH (01:24)
[2019-09-14 01:59] LABS: Glucose,Whole Blood 170 mg/dL (75-99)
[2019-09-14] MEDS: PROPOFOL 1,000 MG in EMPTY BAG 1 BAG IV SCH ×2 (02:32→06:43)
[2019-09-14 02:59] LABS: Glucose,Whole Blood 146 mg/dL (75-99)
[2019-09-14] MEDS: MILRINONE-D5W PMX 20 MG in DEXTROSE/WATER 1 100ML.BAG IV SCH ×2 (03:05→19:07)
[2019-09-14 04:00] LABS: Glucose,Whole Blood 136 mg/dL (75-99)
[2019-09-14 04:19] LABS: ABG HCO3 30 mmol/L (21-25); ABG Oxygen Saturation 97.8 % (94-97); ABG PCO2 36 mmHg (35-45); ABG PH 7.52 (7.35-7.45); ABG PO2 92 mmHg (83-108); ABG TCO2 31 mmol/L (19-24); Allen Test Performed? Yes
[2019-09-14] MEDS: DEXTROSE 5% IN WATER 1,000 ML IV SCH (04:54)
[2019-09-14] MEDS: SODIUM CHLORIDE 0.9% 150 ML with VASOPRESSIN 60 UNIT IV SCH ×2 (04:54)
[2019-09-14 04:55] LABS: Basophils # (A) 0.1 k/uL (0-0.2); Basophils % (A) 1 %; Eosinophils # (A) 0.1 k/uL (0-0.7); Eosinophils % (A) 1 %; Lymphocytes # (A) 1.3 k/uL (1.0-4.8); Lymphocytes % (A) 10 %; MCH 32.2 pg (25.0-35.0); MCHC 35.9 g/dL (31.0-37.0); MCV 89.7 fL (80.0-100.0); Monocytes # (A) 1.2 k/uL (0-1.0); Monocytes % (A) 9 %; Neutrophils % (A) 79 %; Poikilocytosis Slight; RBC 2.14 m/uL (4.30-5.90); RDW 15.7 % (11.5-15.5)
[2019-09-14 05:01] LABS: Glucose,Whole Blood 154 mg/dL (75-99)
[2019-09-14 05:01] LABS: Glucose,Whole Blood 153 mg/dL (75-99)
[2019-09-14 05:01] LABS: Ionized Calcium 4.5 mg/dL (4.5-5.3)
[2019-09-14 05:10] LABS: ALT 304 U/L (21-72); AST 500 U/L (17-59); African American GFR (CKD) >90 (>60 ml/min/1.73 sqM); Albumin 2.6 g/dL (3.5-5.0); Alkaline Phosphatase 34 U/L (38-126); Anion Gap 3 mmol/L; Blood Urea Nitrogen 18 mg/dL (9-20); Calcium 7.7 mg/dL (8.4-10.2); Carbon Dioxide 31 mmol/L (22-30); Chloride 113 mmol/L (98-107); Glucose 144 mg/dL (74-99); Magnesium 2.2 mg/dL (1.6-2.3); Non-African American GFR(CKD) >90 (>60 ml/min/1.73 sqM); Potassium 3.9 mmol/L (3.5-5.1); Sodium 147 mmol/L (137-145); Total Bilirubin 0.4 mg/dL (0.2-1.3); Total Protein 4.3 g/dL (6.3-8.2)
[2019-09-14 05:15] LABS: Platelet Count 77 k/uL (150-450)
[2019-09-14 05:17] LABS: HCT 19.2 % (39.0-53.0); HGB 6.9 gm/dL (13.0-17.5)
[2019-09-14] MEDS ORDERED: POTASSIUM CHLORIDE ER 20 MEQ TAB.ER PO SCH (06:00)
[2019-09-14] MEDS: PHENYLEPHRINE IV SCH ×4 (06:02→10:55)
[2019-09-14] MEDS: WATER IV SCH ×4 (06:02→10:55)
[2019-09-14] MEDS: DEXTROSE 5% IV SCH ×4 (06:02→10:55)
[2019-09-14] MEDS: POTASSIUM CHLORIDE 10 MEQ in WATER FOR INJECTION 1 100ML.BAG IVPB SCH ×4 (06:06→18:25)
[2019-09-14] MEDS ORDERED: CALCIUM GLUCONATE 1 GM in SODIUM CHLORIDE 0.9% 100 ML IVPB ONE (06:30)
[2019-09-14 06:50] LABS: Glucose,Whole Blood 127 mg/dL (75-99)
[2019-09-14 07:36] LABS: Appearance,Urine Cloudy (Clear); Bacteria,Urine Rare /hpf; Bilirubin,Urine Negative (Negative); Blood,Urine Moderate (Negative); Color,Urine Light Red; Glucose,Urine (UA) Negative (Negative); Ketones,Urine Negative (Negative); Leukocyte Esterase,Urine Negative (Negative); Mucus,Urine Rare /hpf; Nitrite,Urine Negative (Negative); Protein,Urine 1+ (Negative); RBC,Urine 81 /hpf (0-5); Specific Gravity,Urine 1.027 (1.001-1.035); Urobilinogen,Urine <2.0 mg/dL (<2.0)
[2019-09-14] MEDS: IPRATROPIUM-ALBUTEROL 3 ML NEB INHALATION SCH ×4 (07:58→20:38)
[2019-09-14 08:07] LABS: Glucose,Whole Blood 110 mg/dL (75-99)
[2019-09-14] MEDS: PANTOPRAZOLE 40 MG/10 ML VIAL IVP SCH (08:07)
[2019-09-14] MEDS: ATORVASTATIN 40 MG TAB PO SCH ×2 (08:08→20:33)
[2019-09-14] MEDS: METOPROLOL TARTRATE 12.5 MG TAB PO SCH ×2 (08:08→20:33)
[2019-09-14] MEDS: CHLORHEXIDINE GLUCONATE 15 ML CUP MUCOUS MEM SCH (08:08)
--- NOTE | 2019-09-14 08:10 | XR ---
EXAMINATION TYPE: XR chest 1V portable DATE OF EXAM: 09/14/2019 Comparison: 09/13/2019 Clinical History: 69-year-old male Post Operative Cardiac Surgery Findings: Median sternotomy wires are present. NG tube courses below the diaphragm. ET tube is satisfactory. Ri ght IJ Presto-Hakeem catheter in the region of the proximal right main pulmonary artery. Left-sided chest tube. Diffuse interstitial densities persist with small effusions and retrocardiac opacity. Impression: 1. Continued CHF with interstitial edema. 2. Continued small effusions with adjacent atelectasis and/or consolidation. 3. Lines and catheters as above.
--- NOTE | 2019-09-14 08:16 | PN ---
PROGRESS NOTE DATE OF SERVICE: September 14, 2019 This is a pulmonary/critical care progress note. Critical care time 36 minutes. This is a 69-year-old gentleman who is postop day #2, status post aortic valve replacement for aortic stenosis and 2-vessel bypass grafting. He also had a left atrial appendage excision. The patient had a somewhat kushal postoperative course requiring reexploration. This is because of bleeding. Currently, the patient is seemingly improved. The patient is currently on the volume assist-control mode rate of 14, tidal volume 550, FiO2 of 50%, PEEP of 10. Blood gases show pO2 of 92, pCO2 of 36 and a pH 7.52. Blood gases are consistent with normoxemia and a very mild to moderate respiratory and metabolic alkalosis. Currently, he remains on Fco-Synephrine, which is at 150 mcg/minute. Both Levophed and vasopressin are both DC'd. He remains on Primacor at about 14 mics per minute. In addition, he is on propofol at 25 mcg/kg per minute. His IV is D5W at 50 mL an hour. Chest x-ray shows mild CHF. The patient, since he has been here, he has received 7 units of PRBCs, 5 units of fresh frozen plasma, 2 units of cryoprecipitate and 3 units of platelets. Overall, compared to where he was yesterday, there has been significant improvement in my opinion. In addition, the patient has a history of severe triple-vessel coronary artery disease, previous bypass grafting done by Dr. Alba in 2000m severe aortic stenosis, diabetes mellitus, moderately severe COPD with an FEV1 that is 54% of predicted, and severe anion gap metabolic acidosis, which is resolved. In addition, he had a significant hyponatremia yesterday and a saline IV was discontinued in favor of D5W and currently his sodium is down to 147. PHYSICAL EXAMINATION: VITAL SIGNS: Current vital signs are reviewed. Temperature 99.7, heart rate 90, respiratory rate 17, blood pressure 117/50, mean 72, saturations are in the mid 90s. His pulmonary artery pressure is 28/13. Central venous pressure is 10. GENERAL: Currently appears in no acute distress. He is currently sedated on propofol. He has an orally placed endotracheal tube and NG tube. HEENT: Examination is grossly unremarkable. NECK: Supple. Full range of motion. No adenopathy. Central line noted. CARDIOVASCULAR examination reveals regular rhythm rate. Heart rate about mid to high 80s to low 90s. LUNGS: A few scattered rhonchi. No wheezes or crackles. Breath sounds equal. ABDOMEN: Soft. No bowel sounds. EXTREMITIES are intact. No significant edema. SKIN: Without rash. NEUROLOGIC: Examination could not be assessed. LABS: Reviewed. White count 19634, hemoglobin 6.9, hematocrit 19.2, platelet count 77,000, sodium 147, potassium 3.9, chloride 113, CO2 31 anion gap is 3. BUN and creatinine were 18 and 0.81. Lactic acid is 4. Calcium 7.7, but ionized calcium is normal. AST is 500, ALT 304. Microbiology is negative. Chest x-ray shows some mild fluid overload with some bibasilar atelectasis and small effusions. Tubes and lines seem to be appropriate. Medications are reviewed. ASSESSMENT: 1. Postoperative day number two status post aortic valve replacement for aortic stenosis, 2 vessel bypass grafting and left atrial appendage excision. 2. Routine postoperative ventilator management, with improved air exchange and acid- base status. 3. Postoperative mediastinal bleeding, requiring reexploration. 4. History of severe triple-vessel coronary artery disease. 5. Previous bypass grafting, 1999, by Dr. Alba. 6. History of severe aortic stenosis. 7. Diabetes mellitus. 8. Moderately severe chronic obstructive pulmonary disease. 9. Anion gap metabolic acidosis, resolved. 10.Hypernatremia, improved. PLAN: The patient has been weaned off both the norepinephrine and vasopressin. He remains on Fco-Synephrine at 150 mics per minute. The patient remains on Primacor 0.125 mcg/kg per minute or 14 mcg/minute. The patient remains on sedation with propofol at 25 mcg/kg per minute. Vent settings are appropriate. He has developed a respiratory and metabolic alkalosis. That could be corrected by getting the potassium up above 4.5. He has received a total of 7 units of PRBCs, 5 units of fresh frozen plasma, 2 units of cryoprecipitate and 3 units of platelets since being here. He is getting blood transfused currently. Overall prognosis remains guarded. In my opinion, though, in the last 24 hours, he has shown significant improvement. Critical care time 36 minutes. MMODL / IJN: [id number] /
[2019-09-14] MEDS: MUPIROCIN 2% OINT 22 GM TUBE NASAL SCH ×2 (08:25→20:33)
[2019-09-14] MEDS: NOREPINEPHRINE 32 MG in SODIUM CHLORIDE 0.9% 218 ML IV SCH ×2 (08:26→13:36)
[2019-09-14 09:04] LABS: Glucose,Whole Blood 170 mg/dL (75-99)
--- NOTE | 2019-09-14 09:05 | P.PN ---
Subjective Progress Note Date: 09/14/19 Principal diagnosis: Severe aortic valve stenosis and triple-vessel calcified coronary artery disease. Past medical history significant for coronary artery disease, status post MID CAB in 1999 with his left internal mammary artery to left anterior descending coronary artery, known aortic valve stenosis, hypertension, hyperlipidemia, history of platelet disorder status post splenectomy, diabetes mellitus type 2, obesity and previous tobacco dependance. POD #2 urgent median sternotomy with redo double coronary artery bypass grafting using the left radial artery from the aorta to the right coronary artery, reverse saphenous vein graft from the aorta to the obtuse marginal artery, aortic valve replacement using a 25 mm Inspiris pericardial bioprosthesis, endoscopic harvesting of the left radial artery, endoscopic harvesting of the left greater saphenous vein in the groin to above the ankle level, intraoperative graft flow measurements using the [employer] system, intraoperative transesophageal echocardiogram and epi-aortic scanning Postoperative lactic acidosis with metabolic acidosis, unexpected Postoperative thrombocytopenia, expected Postoperative hypotension, unexpected Postoperative hypernatremia, unexpected Postoperative acute blood loss anemia, expected from hemodilution and cardiopulmonary bypass, with postoperative bleeding which was unexpected POD #1 re-operation, sternal exploration with evacuation of clots Postoperative transaminitis, somewhat expected due to hypotension The patient is remains in the intensive care unit, sedated on mechanical ventilation. Continues to make improvements, currently off Levophed and vasopressin, remains on small dose of phenylephrine and Primacor. Vital signs are stabilizing, remains in normal sinus rhythm. Hemoglobin was low this morning, currently receiving 1 unit packed red blood cells. Acidosis has corrected, patient has metabolic alkalosis. Continues to have adequate urine output. T-max this morning 101F. Mediastinal and left pleural chest tubes remain with decreasing output and the mediastinal chest tube. Objective - Vital Signs Vital signs: Vital Signs Temp 99.3 F 09/14/19 08:00 Pulse 90 09/14/19 08:00 Resp 14 09/14/19 08:00 BP 117/50 09/14/19 07:05 Pulse Ox 98 09/14/19 08:00 Intake & Output 09/13/19 09/14/19 09/14/19 18:59 06:59 18:59 Intake Total 3317.322 2452.974 542.767 Output Total 2570 1385 110 Balance 804.794 1308.974 432.767 Weight 119.3 kg Intake: IV 240 897 79 Dextrose 5% in Water 1, 600 50 000 ml @ 50 mls/hr IV . Q20H [facility] Rx#:[id number] Pressure bag 90 117 9 Sodium Chloride 0.9% 1, 50 000 ml @ 50 mls/hr IV . Q20H [facility] Rx#:[id number] co/ci 100 180 20 Intake, IV Titration 2798.322 1555.974 153.767 Amount Albumin Human 5% 250 ml 250 In Empty Bag 1 bag @ 250 mls/hr IVPB ONCE ONE Rx#: [id number] Albumin Human 5% 250 ml 250 In Empty Bag 1 bag @ 250 mls/hr IVPB Q1HR PRN Rx#: [id number] Calcium Gluconate 2 gm In 100 Sodium Chloride 0.9% 100 ml @ 100 mls/hr IVPB ONCE ONE Rx#:[id number] Dextrose 5% in Water 1, 500 50 000 ml @ 50 mls/hr IV . Q20H [facility] Rx#:[id number] Insulin Regular 100 unit 36.416 59.092 18.7 In Sodium Chloride 0.9% 100 ml @ Titrate IV .Q0M [facility] Rx#:[id number] Magnesium Sulfate-D5w Pmx 200 1 gm In Dextrose/Water 1 100ml.bag @ 100 mls/hr IVPB Q1H [facility] Rx#: [id number] Milrinone-D5w Pmx 20 mg 112.103 32.706 In Dextrose/Water 1 100ml .bag @ 0.125 MCG/KG/MIN 4 .013 mls/hr IV .Q24H [facility] Rx#:[id number] Milrinone-D5w Pmx 20 mg 100 In Dextrose/Water 1 100ml .bag @ Per Protocol IV . Q0M [facility] Rx#:[id number] Norepinephrine 32 mg In 156.074 85.936 Sodium Chloride 0.9% 218 ml @ 0.5 MCG/KG/MIN 25. 078 mls/hr IV .[id number] [facility] Rx#:[id number] Phenylephrine 40 mg In 62.577 9.716 Dextrose 5% in Water 250 ml @ 0.5 MCG/KG/MIN 20. 384 mls/hr IV .[id number] [facility] Rx#:[id number] Phenylephrine 40 mg In 80 Sodium Chloride 0.9% 250 ml @ 0.5 MCG/KG/MIN 20. 384 mls/hr IV .[id number] [facility] Rx#:[id number] Phenylephrine 40 mg In 739.128 990.410 Sodium Chloride 0.9% 250 ml @ 0.5 MCG/KG/MIN 20. 384 mls/hr IV .[id number] [facility] Rx#:[id number] Potassium Chloride 10 meq 100 In Water For Injection 1 100ml.bag @ 100 mls/hr IVPB Q1H [facility] Rx#: [id number] Propofol 1,000 mg In 205.136 260.386 25.351 Empty Bag 1 bag @ Titrate IV .Q0M [facility] Rx#: [id number] Sodium Chloride 0.9% 150 69.465 14.867 ml @ 0.01 UNITS/MIN 1.53 mls/hr IV .Q24H [facility] with Vasopressin 60 unit Rx#: [id number] Blood Product 279 0 310 Platelet Irr Pheresis Pas 279 -C Unit [id number] Rc As-1 Unit 0 310 [id number] Output: Chest Tube Drainage 320 330 10 Bilateral Mediastinal 320 175 10 left pleural 0 155 0 Drainage 50 10 Left Arm 25 5 Left Calf 25 5 Urine 2200 1045 100 Other: Voiding Method Indwelling Catheter Indwelling Catheter ABP, PAP, CO, CI - Last Documented Arterial Blood Pressure 91/50 Pulmonary Artery Pressure 30/16 Cardiac Output 6.3 Cardiac Index 2.9 - Constitutional General appearance: Present: no acute distress, obese - Respiratory Details: Lungs sounds diminished bilaterally with coarse breath sounds in the bases. Respirations even, nonlabored. Remains on mechanical ventilation, current set tings assist control mode, FiO2 50%, tidal volume 550, respiratory rate 14, PEEP 10. ABGs this morning 7.52/36/92/30/97%/7.0 with FiO2 50%, PEEP 10, respiratory rate 22, respiratory rate decreased to 14. 8.5 ET tube present, 25 at the lip. Mediastinal chest tube present to continuous wall suction, 100 mL serosanguineous drainage overnight, 600 mL in the last 24 hours, no air leak present. Left pleural chest tube to continuous wall suction, 55 mL serosanguineous drainage overnight, 160 mL in the last 24 hours, no air leak present. - Cardiovascular Details: S1, S2 present. Regular rate and rhythm, sinus rhythm on telemetry. Sternum stable. A/V epicardial pacemaker wires present, connected to generator, generator turned off Palpable peripheral pulses bilaterally. Generalized edema present. Right internal jugular [place], right radial arterial line present. Last CO/CI 6.3/2.9. Remains on IV phenylephrine, Primacor. Heart hugger, antiembolism stockings, SCDs present. - Gastrointestinal Gastrointestinal Comment(s): Abdomen soft, nondistended, obese. Active bowel sounds present x 4 quadrants. OG tube present to low intermittent suction with minimal output. - Genitourinary Genitourinary Comment(s): [place] present draining clear, yellow urine. Urine output 60-90 mL per hour overnight. - Integumentary Integumentary Comment(s): Skin is warm and dry. Anterior chest incision well approximated covered with dry intact dressing. Left radial artery harvest site well approximated, CHUNG drain present with minimal serosanguineous drainage. Left lower extremity EVH site well approximated, CHUNG drain present with minimal serosanguineous drainage - Neurologic Neurologic Comment(s): Unable to assess, currently sedated with propofol - Allied health notes Allied health notes reviewed: nursing - Labs CBC & Chem 7: 09/14/19 04:46 09/14/19 04:46 Labs: Abnormal Lab Results - Last 24 Hours (Table) 09/11/19 09/13/19 09/13/19 Range/Units 11:31 08:21 09:32 WBC (3.8-10.6) k/uL RBC (4.30-5.90) m/uL Hgb (13.0-17.5) gm/dL Hct (39.0-53.0) % RDW (11.5-15.5) % Plt Count (150-450) k/uL Neutrophils # (1.3-7.7) k/uL Neutrophils # (Manual) (1.3-7.7) k/uL Monocytes # (0-1.0) k/uL Metamyelocytes # (Man) (0) k/uL Myelocytes # (Manual) (0) k/uL ABG pH (7.35-7.45) ABG pO2 (83-108) mmHg ABG HCO3 (21-25) mmol/L ABG Total CO2 (19-24) mmol/L ABG O2 Saturation (94-97) % Sodium (137-145) mmol/L Chloride (98-107) mmol/L Carbon Dioxide (22-30) mmol/L Glucose (74-99) mg/dL POC Glucose (mg/dL) 102 H 109 H (75-99) mg/dL Plasma Lactic Acid Srini (0.7-2.0) mmol/L Calcium (8.4-10.2) mg/dL AST (17-59) U/L ALT (21-72) U/L Alkaline Phosphatase (38-126) U/L Total Protein (6.3-8.2) g/dL Albumin (3.5-5.0) g/dL Urine Protein (Negative) Urine Blood (Negative) Urine RBC (0-5) /hpf Urine WBC (0-5) /hpf Urine WBC Clumps (None) /hpf Urine Bacteria (None) /hpf Urine Mucus (None) /hpf Crossmatch See Detail 09/13/19 09/13/19 09/13/19 Range/Units 10:15 10:15 10:15 WBC 12.5 H (3.8-10.6) k/uL RBC 2.51 L (4.30-5.90) m/uL Hgb 7.8 L (13.0-17.5) gm/dL Hct 23.4 L (39.0-53.0) % RDW (11.5-15.5) % Plt Count 95 L (150-450) k/uL Neutrophils # (1.3-7.7) k/uL Neutrophils # (Manual) 9.30 H (1.3-7.7) k/uL Monocytes # (0-1.0) k/uL Metamyelocytes # (Man) 0.75 H (0) k/uL Myelocytes # (Manual) 0.25 H (0) k/uL ABG pH (7.35-7.45) ABG pO2 (83-108) mmHg ABG HCO3 (21-25) mmol/L ABG Total CO2 (19-24) mmol/L ABG O2 Saturation (94-97) % Sodium 151 H (137-145) mmol/L Chloride 111 H (98-107) mmol/L Carbon Dioxide 20 L (22-30) mmol/L Glucose 153 H (74-99) mg/dL POC Glucose (mg/dL) (75-99) mg/dL Plasma Lactic Acid Srini 16.9 H* (0.7-2.0) mmol/L Calcium 7.4 L (8.4-10.2) mg/dL AST 305 H (17-59) U/L ALT 182 H (21-72) U/L Alkaline Phosphatase 21 L (38-126) U/L Total Protein 4.3 L (6.3-8.2) g/dL Albumin 2.9 L (3.5-5.0) g/dL Urine Protein (Negative) Urine Blood (Negative) Urine RBC (0-5) /hpf Urine WBC (0-5) /hpf Urine WBC Clumps (None) /hpf Urine Bacteria (None) /hpf Urine Mucus (None) /hpf Crossmatch 09/13/19 09/13/19 09/13/19 Range/Units 10:18 11:15 11:16 WBC (3.8-10.6) k/uL RBC (4.30-5.90) m/uL Hgb (13.0-17.5) gm/dL Hct (39.0-53.0) % RDW (11.5-15.5) % Plt Count (150-450) k/uL Neutrophils # (1.3-7.7) k/uL Neutrophils # (Manual) (1.3-7.7) k/uL Monocytes # (0-1.0) k/uL Metamyelocytes # (Man) (0) k/uL Myelocytes # (Manual) (0) k/uL ABG pH 7.30 L (7.35-7.45) ABG pO2 (83-108) mmHg ABG HCO3 18 L (21-25) mmol/L ABG Total CO2 (19-24) mmol/L ABG O2 Saturation 98.2 H (94-97) % Sodium (137-145) mmol/L Chloride (98-107) mmol/L Carbon Dioxide (22-30) mmol/L Glucose (74-99) mg/dL POC Glucose (mg/dL) 162 H 156 H (75-99) mg/dL Plasma Lactic Acid Srini (0.7-2.0) mmol/L Calcium (8.4-10.2) mg/dL AST (17-59) U/L ALT (21-72) U/L Alkaline Phosphatase (38-126) U/L Total Protein (6.3-8.2) g/dL Albumin (3.5-5.0) g/dL Urine Protein (Negative) Urine Blood (Negative) Urine RBC (0-5) /hpf Urine WBC (0-5) /hpf Urine WBC Clumps (None) /hpf Urine Bacteria (None) /hpf Urine Mucus (None) /hpf Crossmatch 09/13/19 09/13/19 09/13/19 Range/Units 12:27 13:30 13:59 WBC (3.8-10.6) k/uL RBC (4.30-5.90) m/uL Hgb (13.0-17.5) gm/dL Hct (39.0-53.0) % RDW (11.5-15.5) % Plt Count (150-450) k/uL Neutrophils # (1.3-7.7) k/uL Neutrophils # (Manual) (1.3-7.7) k/uL Monocytes # (0-1.0) k/uL Metamyelocytes # (Man) (0) k/uL Myelocytes # (Manual) (0) k/uL ABG pH (7.35-7.45) ABG pO2 71 L (83-108) mmHg ABG HCO3 (21-25) mmol/L ABG Total CO2 (19-24) mmol/L ABG O2 Saturation (94-97) % Sodium (137-145) mmol/L Chloride (98-107) mmol/L Carbon Dioxide (22-30) mmol/L Glucose (74-99) mg/dL POC Glucose (mg/dL) 141 H 142 H (75-99) mg/dL Plasma Lactic Acid Srini (0.7-2.0) mmol/L Calcium (8.4-10.2) mg/dL AST (17-59) U/L ALT (21-72) U/L Alkaline Phosphatase (38-126) U/L Total Protein (6.3-8.2) g/dL Albumin (3.5-5.0) g/dL Urine Protein (Negative) Urine Blood (Negative) Urine RBC (0-5) /hpf Urine WBC (0-5) /hpf Urine WBC Clumps (None) /hpf Urine Bacteria (None) /hpf Urine Mucus (None) /hpf Crossmatch 09/13/19 09/13/19 09/13/19 Range/Units 14:05 14:06 15:15 WBC (3.8-10.6) k/uL RBC (4.30-5.90) m/uL Hgb (13.0-17.5) gm/dL Hct (39.0-53.0) % RDW (11.5-15.5) % Plt Count (150-450) k/uL Neutrophils # (1.3-7.7) k/uL Neutrophils # (Manual) (1.3-7.7) k/uL Monocytes # (0-1.0) k/uL Metamyelocytes # (Man) (0) k/uL Myelocytes # (Manual) (0) k/uL ABG pH (7.35-7.45) ABG pO2 (83-108) mmHg ABG HCO3 (21-25) mmol/L ABG Total CO2 (19-24) mmol/L ABG O2 Saturation (94-97) % Sodium (137-145) mmol/L Chloride (98-107) mmol/L Carbon Dioxide (22-30) mmol/L Glucose (74-99) mg/dL POC Glucose (mg/dL) 195 H 161 H (75-99) mg/dL Plasma Lactic Acid Srini 14.0 H* (0.7-2.0) mmol/L Calcium (8.4-10.2) mg/dL AST (17-59) U/L ALT (21-72) U/L Alkaline Phosphatase (38-126) U/L Total Protein (6.3-8.2) g/dL Albumin (3.5-5.0) g/dL Urine Protein (Negative) Urine Blood (Negative) Urine RBC (0-5) /hpf Urine WBC (0-5) /hpf Urine WBC Clumps (None) /hpf Urine Bacteria (None) /hpf Urine Mucus (None) /hpf Crossmatch 09/13/19 09/13/19 09/13/19 Range/Units 16:23 17:14 18:00 WBC (3.8-10.6) k/uL RBC (4.30-5.90) m/uL Hgb (13.0-17.5) gm/dL Hct (39.0-53.0) % RDW (11.5-15.5) % Plt Count (150-450) k/uL Neutrophils # (1.3-7.7) k/uL Neutrophils # (Manual) (1.3-7.7) k/uL Monocytes # (0-1.0) k/uL Metamyelocytes # (Man) (0) k/uL Myelocytes # (Manual) (0) k/uL ABG pH (7.35-7.45) ABG pO2 (83-108) mmHg ABG HCO3 (21-25) mmol/L ABG Total CO2 (19-24) mmol/L ABG O2 Saturation (94-97) % Sodium (137-145) mmol/L Chloride (98-107) mmol/L Carbon Dioxide (22-30) mmol/L Glucose (74-99) mg/dL POC Glucose (mg/dL) 147 H 143 H (75-99) mg/dL Plasma Lactic Acid Srini 11.6 H* (0.7-2.0) mmol/L Calcium (8.4-10.2) mg/dL AST (17-59) U/L ALT (21-72) U/L Alkaline Phosphatase (38-126) U/L Total Protein (6.3-8.2) g/dL Albumin (3.5-5.0) g/dL Urine Protein (Negative) Urine Blood (Negative) Urine RBC (0-5) /hpf Urine WBC (0-5) /hpf Urine WBC Clumps (None) /hpf Urine Bacteria (None) /hpf Urine Mucus (None) /hpf Crossmatch 09/13/19 09/13/19 09/13/19 Range/Units 18:07 19:05 19:59 WBC (3.8-10.6) k/uL RBC (4.30-5.90) m/uL Hgb (13.0-17.5) gm/dL Hct (39.0-53.0) % RDW (11.5-15.5) % Plt Count (150-450) k/uL Neutrophils # (1.3-7.7) k/uL Neutrophils # (Manual) (1.3-7.7) k/uL Monocytes # (0-1.0) k/uL Metamyelocytes # (Man) (0) k/uL Myelocytes # (Manual) (0) k/uL ABG pH (7.35-7.45) ABG pO2 (83-108) mmHg ABG HCO3 (21-25) mmol/L ABG Total CO2 (19-24) mmol/L ABG O2 Saturation (94-97) % Sodium (137-145) mmol/L Chloride (98-107) mmol/L Carbon Dioxide (22-30) mmol/L Glucose (74-99) mg/dL POC Glucose (mg/dL) 191 H 160 H 173 H (75-99) mg/dL Plasma Lactic Acid Srini (0.7-2.0) mmol/L Calcium (8.4-10.2) mg/dL AST (17-59) U/L ALT (21-72) U/L Alkaline Phosphatase (38-126) U/L Total Protein (6.3-8.2) g/dL Albumin (3.5-5.0) g/dL Urine Protein (Negative) Urine Blood (Negative) Urine RBC (0-5) /hpf Urine WBC (0-5) /hpf Urine WBC Clumps (None) /hpf Urine Bacteria (None) /hpf Urine Mucus (None) /hpf Crossmatch 09/13/19 09/13/19 09/13/19 Range/Units 21:18 22:18 22:18 WBC 12.5 H (3.8-10.6) k/uL RBC 2.32 L (4.30-5.90) m/uL Hgb 7.2 L (13.0-17.5) gm/dL Hct 21.1 L (39.0-53.0) % RDW (11.5-15.5) % Plt Count 84 L (150-450) k/uL Neutrophils # (1.3-7.7) k/uL Neutrophils # (Manual) (1.3-7.7) k/uL Monocytes # (0-1.0) k/uL Metamyelocytes # (Man) (0) k/uL Myelocytes # (Manual) (0) k/uL ABG pH (7.35-7.45) ABG pO2 (83-108) mmHg ABG HCO3 (21-25) mmol/L ABG Total CO2 (19-24) mmol/L ABG O2 Saturation (94-97) % Sodium (137-145) mmol/L Chloride (98-107) mmol/L Carbon Dioxide (22-30) mmol/L Glucose (74-99) mg/dL POC Glucose (mg/dL) 168 H (75-99) mg/dL Plasma Lactic Acid Srini 9.5 H* (0.7-2.0) mmol/L Calcium (8.4-10.2) mg/dL AST (17-59) U/L ALT (21-72) U/L Alkaline Phosphatase (38-126) U/L Total Protein (6.3-8.2) g/dL Albumin (3.5-5.0) g/dL Urine Protein (Negative) Urine Blood (Negative) Urine RBC (0-5) /hpf Urine WBC (0-5) /hpf Urine WBC Clumps (None) /hpf Urine Bacteria (None) /hpf Urine Mucus (None) /hpf Crossmatch 09/13/19 09/13/19 09/13/19 Range/Units 22:18 22:20 23:06 WBC (3.8-10.6) k/uL RBC (4.30-5.90) m/uL Hgb (13.0-17.5) gm/dL Hct (39.0-53.0) % RDW (11.5-15.5) % Plt Count (150-450) k/uL Neutrophils # (1.3-7.7) k/uL Neutrophils # (Manual) (1.3-7.7) k/uL Monocytes # (0-1.0) k/uL Metamyelocytes # (Man) (0) k/uL Myelocytes # (Manual) (0) k/uL ABG pH (7.35-7.45) ABG pO2 (83-108) mmHg ABG HCO3 (21-25) mmol/L ABG Total CO2 (19-24) mmol/L ABG O2 Saturation (94-97) % Sodium 149 H (137-145) mmol/L Chloride 112 H (98-107) mmol/L Carbon Dioxide (22-30) mmol/L Glucose 169 H (74-99) mg/dL POC Glucose (mg/dL) 169 H 179 H (75-99) mg/dL Plasma Lactic Acid Srini (0.7-2.0) mmol/L Calcium 7.8 L (8.4-10.2) mg/dL AST 419 H (17-59) U/L ALT 238 H (21-72) U/L Alkaline Phosphatase 27 L (38-126) U/L Total Protein 4.4 L (6.3-8.2) g/dL Albumin 2.8 L (3.5-5.0) g/dL Urine Protein (Negative) Urine Blood (Negative) Urine RBC (0-5) /hpf Urine WBC (0-5) /hpf Urine WBC Clumps (None) /hpf Urine Bacteria (None) /hpf Urine Mucus (None) /hpf Crossmatch 09/13/19 09/14/19 09/14/19 Range/Units 23:53 01:59 02:58 WBC (3.8-10.6) k/uL RBC (4.30-5.90) m/uL Hgb (13.0-17.5) gm/dL Hct (39.0-53.0) % RDW (11.5-15.5) % Plt Count (150-450) k/uL Neutrophils # (1.3-7.7) k/uL Neutrophils # (Manual) (1.3-7.7) k/uL Monocytes # (0-1.0) k/uL Metamyelocytes # (Man) (0) k/uL Myelocytes # (Manual) (0) k/uL ABG pH (7.35-7.45) ABG pO2 (83-108) mmHg ABG HCO3 (21-25) mmol/L ABG Total CO2 (19-24) mmol/L ABG O2 Saturation (94-97) % Sodium (137-145) mmol/L Chloride (98-107) mmol/L Carbon Dioxide (22-30) mmol/L Glucose (74-99) mg/dL POC Glucose (mg/dL) 157 H 170 H 146 H (75-99) mg/dL Plasma Lactic Acid Srini (0.7-2.0) mmol/L Calcium (8.4-10.2) mg/dL AST (17-59) U/L ALT (21-72) U/L Alkaline Phosphatase (38-126) U/L Total Protein (6.3-8.2) g/dL Albumin (3.5-5.0) g/dL Urine Protein (Negative) Urine Blood (Negative) Urine RBC (0-5) /hpf Urine WBC (0-5) /hpf Urine WBC Clumps (None) /hpf Urine Bacteria (None) /hpf Urine Mucus (None) /hpf Crossmatch 09/14/19 09/14/19 09/14/19 Range/Units 03:58 04:15 04:46 WBC 14.0 H (3.8-10.6) k/uL RBC 2.14 L (4.30-5.90) m/uL Hgb 6.9 L* (13.0-17.5) gm/dL Hct 19.2 L* (39.0-53.0) % RDW 15.7 H (11.5-15.5) % Plt Count 77 L (150-450) k/uL Neutrophils # 11.0 H (1.3-7.7) k/uL Neutrophils # (Manual) (1.3-7.7) k/uL Monocytes # 1.2 H (0-1.0) k/uL Metamyelocytes # (Man) (0) k/uL Myelocytes # (Manual) (0) k/uL ABG pH 7.52 H (7.35-7.45) ABG pO2 (83-108) mmHg ABG HCO3 30 H (21-25) mmol/L ABG Total CO2 31 H (19-24) mmol/L ABG O2 Saturation 97.8 H (94-97) % Sodium (137-145) mmol/L Chloride (98-107) mmol/L Carbon Dioxide (22-30) mmol/L Glucose (74-99) mg/dL POC Glucose (mg/dL) 136 H (75-99) mg/dL Plasma Lactic Acid Srini (0.7-2.0) mmol/L Calcium (8.4-10.2) mg/dL AST (17-59) U/L ALT (21-72) U/L Alkaline Phosphatase (38-126) U/L Total Protein (6.3-8.2) g/dL Albumin (3.5-5.0) g/dL Urine Protein (Negative) Urine Blood (Negative) Urine RBC (0-5) /hpf Urine WBC (0-5) /hpf Urine WBC Clumps (None) /hpf Urine Bacteria (None) /hpf Urine Mucus (None) /hpf Crossmatch 09/14/19 09/14/19 09/14/19 Range/Units 04:46 04:46 04:57 WBC (3.8-10.6) k/uL RBC (4.30-5.90) m/uL Hgb (13.0-17.5) gm/dL Hct (39.0-53.0) % RDW (11.5-15.5) % Plt Count (150-450) k/uL Neutrophils # (1.3-7.7) k/uL Neutrophils # (Manual) (1.3-7.7) k/uL Monocytes # (0-1.0) k/uL Metamyelocytes # (Man) (0) k/uL Myelocytes # (Manual) (0) k/uL ABG pH (7.35-7.45) ABG pO2 (83-108) mmHg ABG HCO3 (21-25) mmol/L ABG Total CO2 (19-24) mmol/L ABG O2 Saturation (94-97) % Sodium 147 H (137-145) mmol/L Chloride 113 H (98-107) mmol/L Carbon Dioxide 31 H (22-30) mmol/L Glucose 144 H (74-99) mg/dL POC Glucose (mg/dL) 154 H (75-99) mg/dL Plasma Lactic Acid Srini 4.0 H* (0.7-2.0) mmol/L Calcium 7.7 L (8.4-10.2) mg/dL AST 500 H (17-59) U/L ALT 304 H (21-72) U/L Alkaline Phosphatase 34 L (38-126) U/L Total Protein 4.3 L (6.3-8.2) g/dL Albumin 2.6 L (3.5-5.0) g/dL Urine Protein (Negative) Urine Blood (Negative) Urine RBC (0-5) /hpf Urine WBC (0-5) /hpf Urine WBC Clumps (None) /hpf Urine Bacteria (None) /hpf Urine Mucus (None) /hpf Crossmatch 09/14/19 09/14/19 09/14/19 Range/Units 04:59 06:48 07:05 WBC (3.8-10.6) k/uL RBC (4.30-5.90) m/uL Hgb (13.0-17.5) gm/dL Hct (39.0-53.0) % RDW (11.5-15.5) % Plt Count (150-450) k/uL Neutrophils # (1.3-7.7) k/uL Neutrophils # (Manual) (1.3-7.7) k/uL Monocytes # (0-1.0) k/uL Metamyelocytes # (Man) (0) k/uL Myelocytes # (Manual) (0) k/uL ABG pH (7.35-7.45) ABG pO2 (83-108) mmHg ABG HCO3 (21-25) mmol/L ABG Total CO2 (19-24) mmol/L ABG O2 Saturation (94-97) % Sodium (137-145) mmol/L Chloride (98-107) mmol/L Carbon Dioxide (22-30) mmol/L Glucose (74-99) mg/dL POC Glucose (mg/dL) 153 H 127 H (75-99) mg/dL Plasma Lactic Acid Srini (0.7-2.0) mmol/L Calcium (8.4-10.2) mg/dL AST (17-59) U/L ALT (21-72) U/L Alkaline Phosphatase (38-126) U/L Total Protein (6.3-8.2) g/dL Albumin (3.5-5.0) g/dL Urine Protein 1+ H (Negative) Urine Blood Moderate H (Negative) Urine RBC 81 H (0-5) /hpf Urine WBC 42 H (0-5) /hpf Urine WBC Clumps Many H (None) /hpf Urine Bacteria Rare H (None) /hpf Urine Mucus Rare H (None) /hpf Crossmatch 09/14/19 Range/Units 08:05 WBC (3.8-10.6) k/uL RBC (4.30-5.90) m/uL Hgb (13.0-17.5) gm/dL Hct (39.0-53.0) % RDW (11.5-15.5) % Plt Count (150-450) k/uL Neutrophils # (1.3-7.7) k/uL Neutrophils # (Manual) (1.3-7.7) k/uL Monocytes # (0-1.0) k/uL Metamyelocytes # (Man) (0) k/uL Myelocytes # (Manual) (0) k/uL ABG pH (7.35-7.45) ABG pO2 (83-108) mmHg ABG HCO3 (21-25) mmol/L ABG Total CO2 (19-24) mmol/L ABG O2 Saturation (94-97) % Sodium (137-145) mmol/L Chloride (98-107) mmol/L Carbon Dioxide (22-30) mmol/L Glucose (74-99) mg/dL POC Glucose (mg/dL) 110 H (75-99) mg/dL Plasma Lactic Acid Srini (0.7-2.0) mmol/L Calcium (8.4-10.2) mg/dL AST (17-59) U/L ALT (21-72) U/L Alkaline Phosphatase (38-126) U/L Total Protein (6.3-8.2) g/dL Albumin (3.5-5.0) g/dL Urine Protein (Negative) Urine Blood (Negative) Urine RBC (0-5) /hpf Urine WBC (0-5) /hpf Urine WBC Clumps (None) /hpf Urine Bacteria (None) /hpf Urine Mucus (None) /hpf Crossmatch - Imaging and Cardiology Chest x-ray: report reviewed, image reviewed Assessment and Plan Assessment: 1. Triple-vessel calcified coronary artery disease, non-STEMI in this admissio n, status post urgent two-vessel bypass 2. Severe aortic valve stenosis, status post bioprosthetic aortic valve replacement 3. Mild to moderate tricuspid valve regurgitation 4. Hypertension 5. Hyperlipidemia 6. History of ITP status post splenectomy 7. Type 2 diabetes mellitus, hemoglobin A1c 6.6% 8. Obesity 9. Previous tobacco dependence, moderate COPD with FEV1 54% of predicted 10. Postoperative lactic acidosis with metabolic acidosis 11. Postoperative thrombocytopenia 12. Postoperative hypotension 13. Postoperative hypernatremia 14. Postoperative acute blood loss anemia with postoperative bleeding, status post reoperation with sternal exploration and evacuation of clots 15. Postoperative transaminitis Plan: 1. Continue to optimize medical management with statin and beta robin. Will restart low-dose aspirin, Plavix. Will increase beta robin as able. 2. Mechanical ventilation management per Dr. Oquendo, bronchodilators per pulmonology 3. Will wean pressors as tolerated. 4. Will monitor daily x-rays and labs. Electrolyte replacement per protocol. One unit packed red blood cells transfused, potassium and calcium replaced 5. Insulin management per primary care service 6. Pain control, sedation with current medication regimen 7. GI/DVT prophylaxis 8. Once able to extubate, will encourage incentive spirometry 10 times every ho ur while awake, increase activity as tolerated 9. Will continue to monitor chest tube output closely 10. Keep [place] catheter for strict accurate intake and output 11. More recommendations to follow based on patient's clinical course. Time with Patient: Greater than 30
[2019-09-14] MEDS: INSULIN REGULAR 100 UNIT in SODIUM CHLORIDE 0.9% 100 ML IV SCH (09:08)
[2019-09-14 09:14] LABS: Basophils # (A) 0.1 k/uL (0-0.2); Basophils % (A) 1 %; Eosinophils # (A) 0.3 k/uL (0-0.7); Eosinophils % (A) 2 %; HCT 22.9 % (39.0-53.0); HGB 8.2 gm/dL (13.0-17.5); Lymphocytes # (A) 1.5 k/uL (1.0-4.8); Lymphocytes % (A) 10 %; MCH 32.3 pg (25.0-35.0); MCV 89.6 fL (80.0-100.0); Mean Platelet Volume 9.6; Monocytes # (A) 1.2 k/uL (0-1.0); Monocytes % (A) 8 %; Neutrophils # (A) 12.3 k/uL (1.3-7.7); Neutrophils % (A) 79 %; Poikilocytosis Slight; RBC 2.56 m/uL (4.30-5.90); RDW 15.8 % (11.5-15.5); WBC 15.7 k/uL (3.8-10.6)
--- NOTE | 2019-09-14 09:24 | P.PN ---
Subjective 69-year-old male with a past medical history of coronary artery disease status post CABG, aortic stenosis, type 2 diabetes mellitus, hyperlipidemia, obstructive sleep apnea on CPAP coming to the hospital with a chief complaint of syncope. Patient states for the past 1-2 months he has been having dizziness and feels lightheaded. Yesterday he felt dizzy and passed out for almost 5-10 minutes. Patient denies having any loss of bowel or bladder control. No tongue bites. He denies having any chest pain or palpitations. Patient states that he gets short of breath on taking a flight of stairs in the recent months. Patient has, motor that is consistent with severe aortic stenosis, he states that he has this murmur for a long period of time. Patient denies having any fevers chills or rigors. No cough or difficulty in breathing. No dysuria or hematuria. No alcohol pain nausea vomiting or diarrhea. No weakness of his extremities. No headaches or blurring of vision. No speech abnormalities. In the emergency room patient had a CT of the head that was showing no acute intracranial process. He also had a chest x-ray that is within normal limits and an EKG showing normal sinus rhythm. There is mild elevation of troponins at 0.047. The patient has been admitted for further management. On 09/08/2019 - patient is sitting up in a chair by the bedside comfortably. He had an episode of dizziness this morning when he tried to get from the room to his bathroom. He did not have a fall. His headaches are much better. He denie s having any chest pain. Mild shortness of breath. No cough. He denies having any fevers chills or rigors. No lower extremity swelling. Patient denies having any abdominal pain. Denies noticing any bleeding from any site. Patient's vitals have been stable. No acute events reported by nursing staff. Patient had an echocardiogram done this morning showing severe aortic stenosis. 09/09/2019 Patient will undergo cardiac catheterization and DAMARI today. Further management and plan depending on the DAMARI results of recent cardiac catheterization findings. Patient is complaining of mild lightheadedness no other significant symptoms at this time 09/10/2019 Patient is clinically doing well is found that there was a disease patient is being evaluated for CABG and aortic valve replacement. Patient is alert and oriented 3 to me but patient apparently was having some hallucinations which I believe secondary to benzodiazepines which were discontinued and Dilaudid will be discontinued and patient will need some nonpharmacological measures including ambulating the hallways will open of the windows and I believe this is secondary to owners and due to prolonged hospitalization 09/13/2019 Patient underwent coronary artery bypass grafting yesterday along with Arctic valve replacement patient the head bleeding and operative site area retro- cardiac bleeding for which patient has to borrow to go to or again for extubation and evacuation of clots patient received multiple blood product transfusion including PRBC transfusion. Patient is prior presently on multiple pressors including norepinephrine and vasopressin and Fco-Synephrine. Patient is also on milrinone and is receiving metoprolol as well. Patient is on patient is presently intubated sedated FiO2 of around 35% area patient is on D5W because of hypernatremia 09/14/2019 No overnight events patient is clinically doing better than yesterday patient is only and Fco-Synephrine now , Levothroid and vasopressin were discontinued and patient is on milrinone and IV insulin. Patient still has the chest tube patient is off sedation doing well and minimal vent settings 6 of PEEP of 10. Patient probably will be extubated today. Review of systems: Unable to obtain due to his clinical condition All inpatient medications were reviewed and appropriate changes in these medications as dictated in the interval history and assessment and plan. Objective - Vital Signs Vital signs: Vital Signs Temp 99.3 F 09/14/19 08:00 Pulse 86 09/14/19 09:00 Resp 18 09/14/19 09:00 BP 117/50 09/14/19 07:05 Pulse Ox 99 09/14/19 09:00 Intake & Output 09/13/19 09/14/19 09/14/19 18:59 06:59 18:59 Intake Total 3317.322 2452.974 614.320 Output Total 2570 1385 190 Balance 756.323 4076.974 424.320 Weight 119.3 kg Intake: IV 240 897 138 Dextrose 5% in Water 1, 600 100 000 ml @ 50 mls/hr IV . Q20H [facility] Rx#:[id number] Pressure bag 90 117 18 Sodium Chloride 0.9% 1, 50 000 ml @ 50 mls/hr IV . Q20H [facility] Rx#:[id number] co/ci 100 180 20 Intake, IV Titration 2798.322 1555.974 166.320 Amount Albumin Human 5% 250 ml 250 In Empty Bag 1 bag @ 250 mls/hr IVPB ONCE ONE Rx#: [id number] Albumin Human 5% 250 ml 250 In Empty Bag 1 bag @ 250 mls/hr IVPB Q1HR PRN Rx#: [id number] Calcium Gluconate 2 gm In 100 Sodium Chloride 0.9% 100 ml @ 100 mls/hr IVPB ONCE ONE Rx#:[id number] Dextrose 5% in Water 1, 500 50 000 ml @ 50 mls/hr IV . Q20H [facility] Rx#:[id number] Insulin Regular 100 unit 36.416 59.092 19.025 In Sodium Chloride 0.9% 100 ml @ Titrate IV .Q0M [facility] Rx#:[id number] Magnesium Sulfate-D5w Pmx 200 1 gm In Dextrose/Water 1 100ml.bag @ 100 mls/hr IVPB Q1H [facility] Rx#: [id number] Milrinone-D5w Pmx 20 mg 112.103 32.706 In Dextrose/Water 1 100ml .bag @ 0.125 MCG/KG/MIN 4 .013 mls/hr IV .Q24H [facility] Rx#:[id number] Milrinone-D5w Pmx 20 mg 100 In Dextrose/Water 1 100ml .bag @ Per Protocol IV . Q0M [facility] Rx#:[id number] Norepinephrine 32 mg In 156.074 85.936 Sodium Chloride 0.9% 218 ml @ 0.5 MCG/KG/MIN 25. 078 mls/hr IV .[id number] [facility] Rx#:[id number] Phenylephrine 40 mg In 62.577 9.716 Dextrose 5% in Water 250 ml @ 0.5 MCG/KG/MIN 20. 384 mls/hr IV .[id number] [facility] Rx#:[id number] Phenylephrine 40 mg In 80 Sodium Chloride 0.9% 250 ml @ 0.5 MCG/KG/MIN 20. 384 mls/hr IV .[id number] [facility] Rx#:[id number] Phenylephrine 40 mg In 739.128 990.410 Sodium Chloride 0.9% 250 ml @ 0.5 MCG/KG/MIN 20. 384 mls/hr IV .[id number] [facility] Rx#:[id number] Potassium Chloride 10 meq 100 In Water For Injection 1 100ml.bag @ 100 mls/hr IVPB Q1H [facility] Rx#: [id number] Propofol 1,000 mg In 205.136 260.386 37.579 Empty Bag 1 bag @ Titrate IV .Q0M [facility] Rx#: [id number] Sodium Chloride 0.9% 150 69.465 14.867 ml @ 0.01 UNITS/MIN 1.53 mls/hr IV .Q24H [facility] with Vasopressin 60 unit Rx#: [id number] Blood Product 279 0 310 Platelet Irr Pheresis Pas 279 -C Unit [id number] Rc As-1 Unit 0 310 [id number] Output: Chest Tube Drainage 320 330 30 Bilateral Mediastinal 320 175 30 left pleural 0 155 0 Drainage 50 10 Left Arm 25 5 Left Calf 25 5 Urine 2200 1045 160 Other: Voiding Method Indwelling Catheter Indwelling Catheter Indwelling Catheter ABP, PAP, CO, CI - Last Documented Arterial Blood Pressure 109/48 Pulmonary Artery Pressure 33/17 Cardiac Output 6.3 Cardiac Index 2.9 - Exam PHYSICAL EXAMINATION: GENERAL: Patient is intubated, off sedation a week HEENT: Pupils are round and equally reacting to light. EOMI. No scleral icterus. No conjunctival pallor. Normocephalic, atraumatic. No pharyngeal erythema. No thyromegaly. CARDIOVASCULAR: S1 and S2 present. No rubs, or gallops. systolic murmur and aortic area PULMONARY: Chest is clear to auscultation, no wheezing or crackles. Patient has 2 mediastinal and left pleural chest tubes, [place] in place ABDOMEN: Soft, nontender, nondistended, normoactive bowel sounds. No palpable organomegaly. MUSCULOSKELETAL: No joint swelling or deformity. EXTREMITIES: No cyanosis, clubbing, or pedal edema. NEUROLOGICAL: Moving all 4 limbs, off sedation SKIN: No rashes. - Labs CBC & Chem 7: 09/14/19 04:46 09/14/19 04:46 Labs: Abnormal Lab Results - Last 24 Hours (Table) 09/11/19 09/13/19 09/13/19 Range/Units 11:31 09:32 10:15 WBC (3.8-10.6) k/uL RBC (4.30-5.90) m/uL Hgb (13.0-17.5) gm/dL Hct (39.0-53.0) % RDW (11.5-15.5) % Plt Count (150-450) k/uL Neutrophils # (1.3-7.7) k/uL Neutrophils # (Manual) (1.3-7.7) k/uL Monocytes # (0-1.0) k/uL Metamyelocytes # (Man) (0) k/uL Myelocytes # (Manual) (0) k/uL ABG pH (7.35-7.45) ABG pO2 (83-108) mmHg ABG HCO3 (21-25) mmol/L ABG Total CO2 (19-24) mmol/L ABG O2 Saturation (94-97) % Sodium (137-145) mmol/L Chloride (98-107) mmol/L Carbon Dioxide (22-30) mmol/L Glucose (74-99) mg/dL POC Glucose (mg/dL) 109 H (75-99) mg/dL Plasma Lactic Acid Srini 16.9 H* (0.7-2.0) mmol/L Calcium (8.4-10.2) mg/dL AST (17-59) U/L ALT (21-72) U/L Alkaline Phosphatase (38-126) U/L Total Protein (6.3-8.2) g/dL Albumin (3.5-5.0) g/dL Urine Protein (Negative) Urine Blood (Negative) Urine RBC (0-5) /hpf Urine WBC (0-5) /hpf Urine WBC Clumps (None) /hpf Urine Bacteria (None) /hpf Urine Mucus (None) /hpf Crossmatch See Detail 09/13/19 09/13/19 09/13/19 Range/Units 10:15 10:15 10:18 WBC 12.5 H (3.8-10.6) k/uL RBC 2.51 L (4.30-5.90) m/uL Hgb 7.8 L (13.0-17.5) gm/dL Hct 23.4 L (39.0-53.0) % RDW (11.5-15.5) % Plt Count 95 L (150-450) k/uL Neutrophils # (1.3-7.7) k/uL Neutrophils # (Manual) 9.30 H (1.3-7.7) k/uL Monocytes # (0-1.0) k/uL Metamyelocytes # (Man) 0.75 H (0) k/uL Myelocytes # (Manual) 0.25 H (0) k/uL ABG pH (7.35-7.45) ABG pO2 (83-108) mmHg ABG HCO3 (21-25) mmol/L ABG Total CO2 (19-24) mmol/L ABG O2 Saturation (94-97) % Sodium 151 H (137-145) mmol/L Chloride 111 H (98-107) mmol/L Carbon Dioxide 20 L (22-30) mmol/L Glucose 153 H (74-99) mg/dL POC Glucose (mg/dL) 162 H (75-99) mg/dL Plasma Lactic Acid Srini (0.7-2.0) mmol/L Calcium 7.4 L (8.4-10.2) mg/dL AST 305 H (17-59) U/L ALT 182 H (21-72) U/L Alkaline Phosphatase 21 L (38-126) U/L Total Protein 4.3 L (6.3-8.2) g/dL Albumin 2.9 L (3.5-5.0) g/dL Urine Protein (Negative) Urine Blood (Negative) Urine RBC (0-5) /hpf Urine WBC (0-5) /hpf Urine WBC Clumps (None) /hpf Urine Bacteria (None) /hpf Urine Mucus (None) /hpf Crossmatch 09/13/19 09/13/19 09/13/19 Range/Units 11:15 11:16 12:27 WBC (3.8-10.6) k/uL RBC (4.30-5.90) m/uL Hgb (13.0-17.5) gm/dL Hct (39.0-53.0) % RDW (11.5-15.5) % Plt Count (150-450) k/uL Neutrophils # (1.3-7.7) k/uL Neutrophils # (Manual) (1.3-7.7) k/uL Monocytes # (0-1.0) k/uL Metamyelocytes # (Man) (0) k/uL Myelocytes # (Manual) (0) k/uL ABG pH 7.30 L (7.35-7.45) ABG pO2 (83-108) mmHg ABG HCO3 18 L (21-25) mmol/L ABG Total CO2 (19-24) mmol/L ABG O2 Saturation 98.2 H (94-97) % Sodium (137-145) mmol/L Chloride (98-107) mmol/L Carbon Dioxide (22-30) mmol/L Glucose (74-99) mg/dL POC Glucose (mg/dL) 156 H 141 H (75-99) mg/dL Plasma Lactic Acid Srini (0.7-2.0) mmol/L Calcium (8.4-10.2) mg/dL AST (17-59) U/L ALT (21-72) U/L Alkaline Phosphatase (38-126) U/L Total Protein (6.3-8.2) g/dL Albumin (3.5-5.0) g/dL Urine Protein (Negative) Urine Blood (Negative) Urine RBC (0-5) /hpf Urine WBC (0-5) /hpf Urine WBC Clumps (None) /hpf Urine Bacteria (None) /hpf Urine Mucus (None) /hpf Crossmatch 09/13/19 09/13/19 09/13/19 Range/Units 13:30 13:59 14:05 WBC (3.8-10.6) k/uL RBC (4.30-5.90) m/uL Hgb (13.0-17.5) gm/dL Hct (39.0-53.0) % RDW (11.5-15.5) % Plt Count (150-450) k/uL Neutrophils # (1.3-7.7) k/uL Neutrophils # (Manual) (1.3-7.7) k/uL Monocytes # (0-1.0) k/uL Metamyelocytes # (Man) (0) k/uL Myelocytes # (Manual) (0) k/uL ABG pH (7.35-7.45) ABG pO2 71 L (83-108) mmHg ABG HCO3 (21-25) mmol/L ABG Total CO2 (19-24) mmol/L ABG O2 Saturation (94-97) % Sodium (137-145) mmol/L Chloride (98-107) mmol/L Carbon Dioxide (22-30) mmol/L Glucose (74-99) mg/dL POC Glucose (mg/dL) 142 H (75-99) mg/dL Plasma Lactic Acid Srini 14.0 H* (0.7-2.0) mmol/L Calcium (8.4-10.2) mg/dL AST (17-59) U/L ALT (21-72) U/L Alkaline Phosphatase (38-126) U/L Total Protein (6.3-8.2) g/dL Albumin (3.5-5.0) g/dL Urine Protein (Negative) Urine Blood (Negative) Urine RBC (0-5) /hpf Urine WBC (0-5) /hpf Urine WBC Clumps (None) /hpf Urine Bacteria (None) /hpf Urine Mucus (None) /hpf Crossmatch 09/13/19 09/13/19 09/13/19 Range/Units 14:06 15:15 16:23 WBC (3.8-10.6) k/uL RBC (4.30-5.90) m/uL Hgb (13.0-17.5) gm/dL Hct (39.0-53.0) % RDW (11.5-15.5) % Plt Count (150-450) k/uL Neutrophils # (1.3-7.7) k/uL Neutrophils # (Manual) (1.3-7.7) k/uL Monocytes # (0-1.0) k/uL Metamyelocytes # (Man) (0) k/uL Myelocytes # (Manual) (0) k/uL ABG pH (7.35-7.45) ABG pO2 (83-108) mmHg ABG HCO3 (21-25) mmol/L ABG Total CO2 (19-24) mmol/L ABG O2 Saturation (94-97) % Sodium (137-145) mmol/L Chloride (98-107) mmol/L Carbon Dioxide (22-30) mmol/L Glucose (74-99) mg/dL POC Glucose (mg/dL) 195 H 161 H 147 H (75-99) mg/dL Plasma Lactic Acid Srini (0.7-2.0) mmol/L Calcium (8.4-10.2) mg/dL AST (17-59) U/L ALT (21-72) U/L Alkaline Phosphatase (38-126) U/L Total Protein (6.3-8.2) g/dL Albumin (3.5-5.0) g/dL Urine Protein (Negative) Urine Blood (Negative) Urine RBC (0-5) /hpf Urine WBC (0-5) /hpf Urine WBC Clumps (None) /hpf Urine Bacteria (None) /hpf Urine Mucus (None) /hpf Crossmatch 09/13/19 09/13/19 09/13/19 Range/Units 17:14 18:00 18:07 WBC (3.8-10.6) k/uL RBC (4.30-5.90) m/uL Hgb (13.0-17.5) gm/dL Hct (39.0-53.0) % RDW (11.5-15.5) % Plt Count (150-450) k/uL Neutrophils # (1.3-7.7) k/uL Neutrophils # (Manual) (1.3-7.7) k/uL Monocytes # (0-1.0) k/uL Metamyelocytes # (Man) (0) k/uL Myelocytes # (Manual) (0) k/uL ABG pH (7.35-7.45) ABG pO2 (83-108) mmHg ABG HCO3 (21-25) mmol/L ABG Total CO2 (19-24) mmol/L ABG O2 Saturation (94-97) % Sodium (137-145) mmol/L Chloride (98-107) mmol/L Carbon Dioxide (22-30) mmol/L Glucose (74-99) mg/dL POC Glucose (mg/dL) 143 H 191 H (75-99) mg/dL Plasma Lactic Acid Srini 11.6 H* (0.7-2.0) mmol/L Calcium (8.4-10.2) mg/dL AST (17-59) U/L ALT (21-72) U/L Alkaline Phosphatase (38-126) U/L Total Protein (6.3-8.2) g/dL Albumin (3.5-5.0) g/dL Urine Protein (Negative) Urine Blood (Negative) Urine RBC (0-5) /hpf Urine WBC (0-5) /hpf Urine WBC Clumps (None) /hpf Urine Bacteria (None) /hpf Urine Mucus (None) /hpf Crossmatch 09/13/19 09/13/19 09/13/19 Range/Units 19:05 19:59 21:18 WBC (3.8-10.6) k/uL RBC (4.30-5.90) m/uL Hgb (13.0-17.5) gm/dL Hct (39.0-53.0) % RDW (11.5-15.5) % Plt Count (150-450) k/uL Neutrophils # (1.3-7.7) k/uL Neutrophils # (Manual) (1.3-7.7) k/uL Monocytes # (0-1.0) k/uL Metamyelocytes # (Man) (0) k/uL Myelocytes # (Manual) (0) k/uL ABG pH (7.35-7.45) ABG pO2 (83-108) mmHg ABG HCO3 (21-25) mmol/L ABG Total CO2 (19-24) mmol/L ABG O2 Saturation (94-97) % Sodium (137-145) mmol/L Chloride (98-107) mmol/L Carbon Dioxide (22-30) mmol/L Glucose (74-99) mg/dL POC Glucose (mg/dL) 160 H 173 H 168 H (75-99) mg/dL Plasma Lactic Acid Srini (0.7-2.0) mmol/L Calcium (8.4-10.2) mg/dL AST (17-59) U/L ALT (21-72) U/L Alkaline Phosphatase (38-126) U/L Total Protein (6.3-8.2) g/dL Albumin (3.5-5.0) g/dL Urine Protein (Negative) Urine Blood (Negative) Urine RBC (0-5) /hpf Urine WBC (0-5) /hpf Urine WBC Clumps (None) /hpf Urine Bacteria (None) /hpf Urine Mucus (None) /hpf Crossmatch 09/13/19 09/13/19 09/13/19 Range/Units 22:18 22:18 22:18 WBC 12.5 H (3.8-10.6) k/uL RBC 2.32 L (4.30-5.90) m/uL Hgb 7.2 L (13.0-17.5) gm/dL Hct 21.1 L (39.0-53.0) % RDW (11.5-15.5) % Plt Count 84 L (150-450) k/uL Neutrophils # (1.3-7.7) k/uL Neutrophils # (Manual) (1.3-7.7) k/uL Monocytes # (0-1.0) k/uL Metamyelocytes # (Man) (0) k/uL Myelocytes # (Manual) (0) k/uL ABG pH (7.35-7.45) ABG pO2 (83-108) mmHg ABG HCO3 (21-25) mmol/L ABG Total CO2 (19-24) mmol/L ABG O2 Saturation (94-97) % Sodium 149 H (137-145) mmol/L Chloride 112 H (98-107) mmol/L Carbon Dioxide (22-30) mmol/L Glucose 169 H (74-99) mg/dL POC Glucose (mg/dL) (75-99) mg/dL Plasma Lactic Acid Srini 9.5 H* (0.7-2.0) mmol/L Calcium 7.8 L (8.4-10.2) mg/dL AST 419 H (17-59) U/L ALT 238 H (21-72) U/L Alkaline Phosphatase 27 L (38-126) U/L Total Protein 4.4 L (6.3-8.2) g/dL Albumin 2.8 L (3.5-5.0) g/dL Urine Protein (Negative) Urine Blood (Negative) Urine RBC (0-5) /hpf Urine WBC (0-5) /hpf Urine WBC Clumps (None) /hpf Urine Bacteria (None) /hpf Urine Mucus (None) /hpf Crossmatch 09/13/19 09/13/19 09/13/19 Range/Units 22:20 23:06 23:53 WBC (3.8-10.6) k/uL RBC (4.30-5.90) m/uL Hgb (13.0-17.5) gm/dL Hct (39.0-53.0) % RDW (11.5-15.5) % Plt Count (150-450) k/uL Neutrophils # (1.3-7.7) k/uL Neutrophils # (Manual) (1.3-7.7) k/uL Monocytes # (0-1.0) k/uL Metamyelocytes # (Man) (0) k/uL Myelocytes # (Manual) (0) k/uL ABG pH (7.35-7.45) ABG pO2 (83-108) mmHg ABG HCO3 (21-25) mmol/L ABG Total CO2 (19-24) mmol/L ABG O2 Saturation (94-97) % Sodium (137-145) mmol/L Chloride (98-107) mmol/L Carbon Dioxide (22-30) mmol/L Glucose (74-99) mg/dL POC Glucose (mg/dL) 169 H 179 H 157 H (75-99) mg/dL Plasma Lactic Acid Srini (0.7-2.0) mmol/L Calcium (8.4-10.2) mg/dL AST (17-59) U/L ALT (21-72) U/L Alkaline Phosphatase (38-126) U/L Total Protein (6.3-8.2) g/dL Albumin (3.5-5.0) g/dL Urine Protein (Negative) Urine Blood (Negative) Urine RBC (0-5) /hpf Urine WBC (0-5) /hpf Urine WBC Clumps (None) /hpf Urine Bacteria (None) /hpf Urine Mucus (None) /hpf Crossmatch 09/14/19 09/14/19 09/14/19 Range/Units 01:59 02:58 03:58 WBC (3.8-10.6) k/uL RBC (4.30-5.90) m/uL Hgb (13.0-17.5) gm/dL Hct (39.0-53.0) % RDW (11.5-15.5) % Plt Count (150-450) k/uL Neutrophils # (1.3-7.7) k/uL Neutrophils # (Manual) (1.3-7.7) k/uL Monocytes # (0-1.0) k/uL Metamyelocytes # (Man) (0) k/uL Myelocytes # (Manual) (0) k/uL ABG pH (7.35-7.45) ABG pO2 (83-108) mmHg ABG HCO3 (21-25) mmol/L ABG Total CO2 (19-24) mmol/L ABG O2 Saturation (94-97) % Sodium (137-145) mmol/L Chloride (98-107) mmol/L Carbon Dioxide (22-30) mmol/L Glucose (74-99) mg/dL POC Glucose (mg/dL) 170 H 146 H 136 H (75-99) mg/dL Plasma Lactic Acid Srini (0.7-2.0) mmol/L Calcium (8.4-10.2) mg/dL AST (17-59) U/L ALT (21-72) U/L Alkaline Phosphatase (38-126) U/L Total Protein (6.3-8.2) g/dL Albumin (3.5-5.0) g/dL Urine Protein (Negative) Urine Blood (Negative) Urine RBC (0-5) /hpf Urine WBC (0-5) /hpf Urine WBC Clumps (None) /hpf Urine Bacteria (None) /hpf Urine Mucus (None) /hpf Crossmatch 09/14/19 09/14/19 09/14/19 Range/Units 04:15 04:46 04:46 WBC 14.0 H (3.8-10.6) k/uL RBC 2.14 L (4.30-5.90) m/uL Hgb 6.9 L* (13.0-17.5) gm/dL Hct 19.2 L* (39.0-53.0) % RDW 15.7 H (11.5-15.5) % Plt Count 77 L (150-450) k/uL Neutrophils # 11.0 H (1.3-7.7) k/uL Neutrophils # (Manual) (1.3-7.7) k/uL Monocytes # 1.2 H (0-1.0) k/uL Metamyelocytes # (Man) (0) k/uL Myelocytes # (Manual) (0) k/uL ABG pH 7.52 H (7.35-7.45) ABG pO2 (83-108) mmHg ABG HCO3 30 H (21-25) mmol/L ABG Total CO2 31 H (19-24) mmol/L ABG O2 Saturation 97.8 H (94-97) % Sodium 147 H (137-145) mmol/L Chloride 113 H (98-107) mmol/L Carbon Dioxide 31 H (22-30) mmol/L Glucose 144 H (74-99) mg/dL POC Glucose (mg/dL) (75-99) mg/dL Plasma Lactic Acid Srini (0.7-2.0) mmol/L Calcium 7.7 L (8.4-10.2) mg/dL AST 500 H (17-59) U/L ALT 304 H (21-72) U/L Alkaline Phosphatase 34 L (38-126) U/L Total Protein 4.3 L (6.3-8.2) g/dL Albumin 2.6 L (3.5-5.0) g/dL Urine Protein (Negative) Urine Blood (Negative) Urine RBC (0-5) /hpf Urine WBC (0-5) /hpf Urine WBC Clumps (None) /hpf Urine Bacteria (None) /hpf Urine Mucus (None) /hpf Crossmatch 09/14/19 09/14/19 09/14/19 Range/Units 04:46 04:57 04:59 WBC (3.8-10.6) k/uL RBC (4.30-5.90) m/uL Hgb (13.0-17.5) gm/dL Hct (39.0-53.0) % RDW (11.5-15.5) % Plt Count (150-450) k/uL Neutrophils # (1.3-7.7) k/uL Neutrophils # (Manual) (1.3-7.7) k/uL Monocytes # (0-1.0) k/uL Metamyelocytes # (Man) (0) k/uL Myelocytes # (Manual) (0) k/uL ABG pH (7.35-7.45) ABG pO2 (83-108) mmHg ABG HCO3 (21-25) mmol/L ABG Total CO2 (19-24) mmol/L ABG O2 Saturation (94-97) % Sodium (137-145) mmol/L Chloride (98-107) mmol/L Carbon Dioxide (22-30) mmol/L Glucose (74-99) mg/dL POC Glucose (mg/dL) 154 H 153 H (75-99) mg/dL Plasma Lactic Acid Srini 4.0 H* (0.7-2.0) mmol/L Calcium (8.4-10.2) mg/dL AST (17-59) U/L ALT (21-72) U/L Alkaline Phosphatase (38-126) U/L Total Protein (6.3-8.2) g/dL Albumin (3.5-5.0) g/dL Urine Protein (Negative) Urine Blood (Negative) Urine RBC (0-5) /hpf Urine WBC (0-5) /hpf Urine WBC Clumps (None) /hpf Urine Bacteria (None) /hpf Urine Mucus (None) /hpf Crossmatch 09/14/19 09/14/19 09/14/19 Range/Units 06:48 07:05 08:05 WBC (3.8-10.6) k/uL RBC (4.30-5.90) m/uL Hgb (13.0-17.5) gm/dL Hct (39.0-53.0) % RDW (11.5-15.5) % Plt Count (150-450) k/uL Neutrophils # (1.3-7.7) k/uL Neutrophils # (Manual) (1.3-7.7) k/uL Monocytes # (0-1.0) k/uL Metamyelocytes # (Man) (0) k/uL Myelocytes # (Manual) (0) k/uL ABG pH (7.35-7.45) ABG pO2 (83-108) mmHg ABG HCO3 (21-25) mmol/L ABG Total CO2 (19-24) mmol/L ABG O2 Saturation (94-97) % Sodium (137-145) mmol/L Chloride (98-107) mmol/L Carbon Dioxide (22-30) mmol/L Glucose (74-99) mg/dL POC Glucose (mg/dL) 127 H 110 H (75-99) mg/dL Plasma Lactic Acid Srini (0.7-2.0) mmol/L Calcium (8.4-10.2) mg/dL AST (17-59) U/L ALT (21-72) U/L Alkaline Phosphatase (38-126) U/L Total Protein (6.3-8.2) g/dL Albumin (3.5-5.0) g/dL Urine Protein 1+ H (Negative) Urine Blood Moderate H (Negative) Urine RBC 81 H (0-5) /hpf Urine WBC 42 H (0-5) /hpf Urine WBC Clumps Many H (None) /hpf Urine Bacteria Rare H (None) /hpf Urine Mucus Rare H (None) /hpf Crossmatch 09/14/19 Range/Units 09:02 WBC (3.8-10.6) k/uL RBC (4.30-5.90) m/uL Hgb (13.0-17.5) gm/dL Hct (39.0-53.0) % RDW (11.5-15.5) % Plt Count (150-450) k/uL Neutrophils # (1.3-7.7) k/uL Neutrophils # (Manual) (1.3-7.7) k/uL Monocytes # (0-1.0) k/uL Metamyelocytes # (Man) (0) k/uL Myelocytes # (Manual) (0) k/uL ABG pH (7.35-7.45) ABG pO2 (83-108) mmHg ABG HCO3 (21-25) mmol/L ABG Total CO2 (19-24) mmol/L ABG O2 Saturation (94-97) % Sodium (137-145) mmol/L Chloride (98-107) mmol/L Carbon Dioxide (22-30) mmol/L Glucose (74-99) mg/dL POC Glucose (mg/dL) 170 H (75-99) mg/dL Plasma Lactic Acid Srini (0.7-2.0) mmol/L Calcium (8.4-10.2) mg/dL AST (17-59) U/L ALT (21-72) U/L Alkaline Phosphatase (38-126) U/L Total Protein (6.3-8.2) g/dL Albumin (3.5-5.0) g/dL Urine Protein (Negative) Urine Blood (Negative) Urine RBC (0-5) /hpf Urine WBC (0-5) /hpf Urine WBC Clumps (None) /hpf Urine Bacteria (None) /hpf Urine Mucus (None) /hpf Crossmatch Assessment and Plan Plan: -Triple vessel coronary artery disease with a non-ST elevation myocardial infarction on admission status post CABG. -severe aortic stenosis status post bioprosthetic valve replacement. -Mild to moderate tricuspid regurgitation -Postoperative bleeding status post exploration and evacuation of blood clots -Respiratory failure postoperatively patient is on ventilatory support at this time -Hyponatremia because of multiple IV fluid transfusion as patient is on D5w at this time. -Postoperative shock probably hypovolemic patient is on multiple pressors as mentioned above dysuria multiple units of blood transfusion - non-ST elevation myocardial infarction with triple vessel disease -Type 2 diabetes mellitus -Hypertension -Hyperlipidemia #Obstructive sleep apnea
--- NOTE | 2019-09-14 09:46 | PN ---
PROGRESS NOTE Mr. Nelson is a 69-year-old male who has underwent redo coronary bypass grafting yesterday and aortic valve replacement. He had to be taken back to the operating room yesterday because of recurrent bleeding. He was on large amount of pressors that have been decreased. He remains in sinus mechanism, intubated and sedated. He has good urinary output. He has received the bypass to the left circumflex with the aortic valve replacement. He is today on the lower dose off Milrinone. Off the vasopressin. He had received transfusion because of low hemoglobin. His drainage from the chest tube has decreased. PHYSICAL EXAMINATION: Blood pressure 114/50 with a heart rate in the 80s. LUNGS: Clear anteriorly. HEART: Regular rate and rhythm, S1, S2. No S3. No rub. ABDOMEN: Soft. Hypoactive bowel sounds. EXTREMITIES: ERIKA wrapping in place. No significant edema. Chest x-ray revealed mild congestion. No clear pneumothorax. LAB DATA: Lab data revealed a hemoglobin of 6.9 that was prior to transfusion. His platelet count 77,000, BUN creatinine of 18 and 0.8. His plasma lactic was 4, which has improved compared to yesterday. His AST and ALT are elevated at 500 and 304. IMPRESSION: 1. Status post redo coronary bypass grafting and aortic valve replacement. 2. Severe anemia with bleeding requiring return to the operating room, improving. 3. Postoperative lactic acidosis, improving. 4. Anemia. 5. Diabetes. 6. History of chronic obstructive lung disease. RECOMMENDATION: The patient is doing better overall. Hemodynamically, he is more stable, on less pressors. We will continue to follow his renal function. Continue to wean the pressors as tolerated and depending on his progress, further recommendations will be made. MMODL / IJN: [id number] /
[2019-09-14 09:56] LABS: Anisocytosis (M) Present; Hypochromasia (M) Present; Platelet Count 75 k/uL (150-450); Poikilocytosis (M) Present; Polychromasia Present
[2019-09-14 10:12] LABS: Glucose,Whole Blood 142 mg/dL (75-99)
[2019-09-14] MEDS: CLOPIDOGREL 75 MG TAB PO SCH (10:15)
[2019-09-14] MEDS: ASPIRIN 81 MG PO SCH (10:15)
[2019-09-14 11:03] LABS: Glucose,Whole Blood 161 mg/dL (75-99)
[2019-09-14 12:05] LABS: Glucose,Whole Blood 144 mg/dL (75-99)
[2019-09-14 13:09] LABS: Glucose,Whole Blood 152 mg/dL (75-99)
[2019-09-14 14:01] LABS: Glucose,Whole Blood 162 mg/dL (75-99)
[2019-09-14 15:05] LABS: Glucose,Whole Blood 156 mg/dL (75-99)
[2019-09-14 16:09] LABS: Glucose,Whole Blood 159 mg/dL (75-99)
[2019-09-14] MEDS: HEPARIN SODIUM,PORCINE 5,000 UNIT/ML 1 ML VIAL SQ SCH (16:56)
[2019-09-14 16:57] LABS: Magnesium 2.3 mg/dL (1.6-2.3); Potassium 3.9 mmol/L (3.5-5.1)
[2019-09-14] MEDS: CLEVIDIPINE BUTYRATE 25 MG in EMPTY BAG 1 BAG IV SCH (17:10)
[2019-09-14 17:16] LABS: Glucose,Whole Blood 147 mg/dL (75-99)
[2019-09-14 18:29] LABS: Glucose,Whole Blood 158 mg/dL (75-99)
[2019-09-14 19:15] LABS: Glucose,Whole Blood 134 mg/dL (75-99)
[2019-09-14] MEDS: SENNOSIDES-DOCUSATE SODIUM 1 EACH TAB PO SCH (20:33)
[2019-09-14 20:49] LABS: Glucose,Whole Blood 139 mg/dL (75-99)
[2019-09-14 22:59] LABS: Glucose,Whole Blood 137 mg/dL (75-99)
[2019-09-15] MEDS: HEPARIN SODIUM,PORCINE 5,000 UNIT/ML 1 ML VIAL SQ SCH (00:45)
[2019-09-15 01:27] LABS: Glucose,Whole Blood 154 mg/dL (75-99)
[2019-09-15] MEDS: DEXTROSE 5% IN WATER 1,000 ML IV SCH ×2 (03:03→21:18)
[2019-09-15] MEDS: NOREPINEPHRINE 32 MG in SODIUM CHLORIDE 0.9% 218 ML IV SCH (03:04)
[2019-09-15 03:05] LABS: Glucose,Whole Blood 138 mg/dL (75-99)
[2019-09-15 04:23] LABS: Glucose,Whole Blood 143 mg/dL (75-99)
[2019-09-15 05:44] LABS: Ionized Calcium 4.5 mg/dL (4.5-5.3)
[2019-09-15 05:46] LABS: Anisocytosis Slight; HCT 22.8 % (39.0-53.0); HGB 7.6 gm/dL (13.0-17.5); MCH 30.6 pg (25.0-35.0); MCHC 33.3 g/dL (31.0-37.0); MCV 91.8 fL (80.0-100.0); Mean Platelet Volume 11.1; Platelet Count 56 k/uL (150-450); Poikilocytosis Slight; RBC 2.48 m/uL (4.30-5.90); RDW 16.1 % (11.5-15.5)
[2019-09-15 05:52] LABS: ALT 384 U/L (21-72); AST 319 U/L (17-59); African American GFR (CKD) >90 (>60 ml/min/1.73 sqM); Albumin 2.6 g/dL (3.5-5.0); Alkaline Phosphatase 65 U/L (38-126); Anion Gap 1 mmol/L; Blood Urea Nitrogen 24 mg/dL (9-20); Calcium 7.6 mg/dL (8.4-10.2); Carbon Dioxide 33 mmol/L (22-30); Chloride 109 mmol/L (98-107); Glucose 123 mg/dL (74-99); Magnesium 2.3 mg/dL (1.6-2.3); Non-African American GFR(CKD) >90 (>60 ml/min/1.73 sqM); Potassium 4.2 mmol/L (3.5-5.1); Sodium 143 mmol/L (137-145); Total Bilirubin 0.7 mg/dL (0.2-1.3); Total Protein 4.5 g/dL (6.3-8.2)
[2019-09-15 06:09] LABS: Glucose,Whole Blood 117 mg/dL (75-99)
[2019-09-15 06:14] LABS: Band Neutrophils % 2 %; Eosinophils # (M) 0.16 k/uL (0-0.7); Neutrophils % (M) 81 %; Nucleated Red Blood Cells 4 /100 WBC (0-0); Total Cells Counted 200
[2019-09-15 06:15] LABS: Large Platelets Present; Lymphocytes # (M) 1.74 k/uL (1.0-4.8); Monocytes # (M) 1.11 k/uL (0-1.0); WBC 15.8 k/uL (3.8-10.6)
[2019-09-15] MEDS: INSULIN REGULAR 100 UNIT in SODIUM CHLORIDE 0.9% 100 ML IV SCH (06:28)
[2019-09-15] MEDS: SODIUM CHLORIDE 0.9% 150 ML with VASOPRESSIN 60 UNIT IV SCH ×2 (06:29)
[2019-09-15] MEDS: IPRATROPIUM-ALBUTEROL 3 ML NEB INHALATION SCH ×4 (07:10→20:42)
--- NOTE | 2019-09-15 07:26 | XR ---
EXAMINATION TYPE: XR chest 1V portable DATE OF EXAM: 09/15/2019 COMPARISON: 09/14/2019 INDICATION: Post cardiac surgery TECHNIQUE: Single frontal view of the chest is obtained. FINDINGS: The heart size is mildly prominent. The pulmonary vasculature is normal. Right lower lobe infiltrate is present. Left basilar infiltrate is present. Endotracheal tube and nasogastric tube is been removed. Mora-Hakeem catheter remains present with the t ip in the main pulmonary artery region. IMPRESSION: 1. Worsening bibasilar infiltrates. 2. Mora-Hakeem catheter stable in position.
[2019-09-15] MEDS ORDERED: CALCIUM GLUCONATE 1 GM in SODIUM CHLORIDE 0.9% 100 ML IVPB ONE (07:30)
--- NOTE | 2019-09-15 07:38 | PN ---
PROGRESS NOTE Mr. Nelson is a 69-year-old male status post coronary artery bypass grafting who underwent redo surgery and underwent aortic valve replacement with bypass to the left circumflex and the right coronary artery. He was taken back to the operating room on the same day because of evidence of bleeding. He was on large amount of pressors. He is doing much better now. He continues to have dyspnea, but he is on much less amount of pressors. He had episode of atrial fibrillation and was bolused with amiodarone and he is back in sinus mechanism. His urine output has been stable. He has no ventricular ectopic activity. Hemodynamically, he is stable on a much lower dose of pressors that been weaned off. He continues to be otherwise on the IV amiodarone, Lipitor 40 mg daily, aspirin once a day, Plavix 75 mg daily, Milrinone, metoprolol tartrate 12.5 mg twice a day and vasopressin. PHYSICAL EXAMINATION: Blood pressure running in the 90s with a heart rate in the 80s. LUNGS: With decreased air exchange at the bases. No wheezes. HEART: Regular rate and rhythm. S1, S2 with systolic murmur. No rub. ABDOMEN: Soft, obese, nontender. EXTREMITIES: No significant edema. LAB DATA: Lab data revealed white blood cells of 15.8, hemoglobin of 7.6, platelet count 56,000. BUN and creatinine 24 and 0.75. Potassium 4.2. His AST 319 and his ALT is 384. IMPRESSION: 1. Status post coronary artery bypass grafting with redo and aortic valve replacement. 2. Postoperative bleeding with persistent anemia. 3. Thrombocytopenia. 4. Paroxysmal atrial fibrillation back in sinus mechanism. 5. History of diabetes. 6. Mild severe chronic obstructive lung disease. RECOMMENDATION: From the cardiac standpoint, we will continue to wean his pressors off. Follow his CBC. Continue incentive spirometry. I will continue on the amiodarone at this point and depending on his progress further condition will be made. He is doing much better and there is significant improvement in his status. MMODL / IJN: [id number] /
[2019-09-15] MEDS ORDERED: FUROSEMIDE 10 MG/ML 4 ML VIAL IV STA (07:58)
[2019-09-15 08:06] LABS: ABG Base Excess 6.5 mmol/L; ABG HCO3 31 mmol/L (21-25); ABG Oxygen Saturation 98.2 % (94-97); ABG PCO2 47 mmHg (35-45); ABG PH 7.43 (7.35-7.45); ABG PO2 107 mmHg (83-108); ABG TCO2 32 mmol/L (19-24); Allen Test Performed? Yes
--- NOTE | 2019-09-15 08:06 | P.PN ---
Subjective Progress Note Date: 09/15/19 Principal diagnosis: Severe aortic valve stenosis and triple-vessel calcified coronary artery disease. Past medical history significant for coronary artery disease, status post MID CAB in 1999 with his left internal mammary artery to left anterior descending coronary artery, known aortic valve stenosis, hypertension, hyperlipidemia, history of platelet disorder status post splenectomy, diabetes mellitus type 2, obesity and previous tobacco dependance. POD #3 urgent median sternotomy with redo double coronary artery bypass grafting using the left radial artery from the aorta to the right coronary artery, reverse saphenous vein graft from the aorta to the obtuse marginal artery, aortic valve replacement using a 25 mm Inspiris pericardial bioprosthesis, endoscopic harvesting of the left radial artery, endoscopic harvesting of the left greater saphenous vein in the groin to above the ankle level, intraoperative graft flow measurements using the JRapid system, intraoperative transesophageal echocardiogram and epi-aortic scanning Postoperative prolonged mechanical ventilation secondary to re-operation and acidosis, unexpected Postoperative lactic acidosis with metabolic acidosis, unexpected Postoperative thrombocytopenia, expected Postoperative hypotension, unexpected Postoperative hypernatremia, unexpected Postoperative acute blood loss anemia, expected from hemodilution and cardiopulmonary bypass, with postoperative bleeding which was unexpected POD #1 re-operation, sternal exploration with evacuation of clots Postoperative transaminitis, somewhat expected due to hypotension Postoperative atrial fibrillation, unexpected but common occurance after open heart surgery The patient is currently sitting up in bed in the intensive care unit in no acute distress. Was successfully extubated to bipap yesterday at 10:35. States pain is mostly controlled, does complain of some shortness of breath and weakness. States he feels "rough". Continues to make improvements clinically, continues to be off Levophed and vasopressin, remains on small dose of phenylephrine and Primacor. Vital signs are stabilizing. Went into afib last night, started on amio, currently in normal sinus rhythm. Urine output starting to decrease. Received 7th unit PRBCs yesterday. Generalized edema present. Mediastinal, left pleural chest tubes remain with decreasing output. Objective - Vital Signs Vital signs: Vital Signs Temp 97.4 F L 09/15/19 00:00 Pulse 86 09/15/19 07:11 Resp 17 09/15/19 06:00 BP 87/58 09/15/19 06:00 Pulse Ox 96 09/15/19 06:00 Intake & Output 09/14/19 09/15/19 09/15/19 18:59 06:59 18:59 Intake Total 1826.630 699.259 Output Total 771 614 Balance 1055.630 85.259 Weight 123 kg Intake: IV 769 658 Dextrose 5% in Water 1, 550 500 000 ml @ 50 mls/hr IV . Q20H MASSIMO Rx#:[id number] Pressure bag 99 108 co/ci 120 50 Intake, IV Titration 747.630 41.259 Amount Insulin Regular 100 unit 77.766 41.259 In Sodium Chloride 0.9% 100 ml @ Titrate IV .Q0M [facility] Rx#:[id number] Phenylephrine 40 mg In 332.285 Dextrose 5% in Water 250 ml @ 0.5 MCG/KG/MIN 20. 384 mls/hr IV .[id number] [facility]IMO Rx#:[id number] Potassium Chloride 10 meq 100 In Water For Injection 1 100ml.bag @ 100 mls/hr IVPB Q1H [facility]IMO Rx#: [id number] Potassium Chloride 10 meq 200 In Water For Injection 1 100ml.bag @ 100 mls/hr IVPB Q1H [facility]IMO Rx#: [id number] Propofol 1,000 mg In 37.579 Empty Bag 1 bag @ Titrate IV .Q0M MASSIMO Rx#: [id number] Blood Product 310 Rc As-1 Unit 310 [id number] Output: Chest Tube Drainage 266 240 Bilateral Mediastinal 120 100 left pleural 146 140 Urine 505 374 Other: Voiding Method Indwelling Catheter Indwelling Catheter ABP, PAP, CO, CI - Last Documented Arterial Blood Pressure 105/57 Pulmonary Artery Pressure 40/17 Cardiac Output 5.3 Cardiac Index 2.4 - Constitutional General appearance: Present: cooperative, no acute distress, obese - Respiratory Details: Lung sounds diminished bilaterally with crackles in the bases. Respirations even, non-labored. Currently on 5L NC with oxygen saturation 96%. Only able to achieve 500 mL on his incentive spirometry. Strong productive cough. Mediastinal chest tube to continuous wall suction, 80 mL serosanguinous drainage overnight, 200 mL in the last 24 hours, no air leak present. Left pleural chest tube to continuous wall suction, 100 mL serosanguinous drainage overnight, 300 mL in the last 24 hours, no air leak present. - Cardiovascular Details: S1, S2 present. Regular rate and rhythm, sinus rhythm on telemetry. Sternum stable. A/V epicardial pacemaker wires present, connected to generator, generator turned off. Palpable peripheral pulses bilaterally. Generalized edema present. Right internal jugular Crete/Cordis, right radial arterial line present. Last CO/CI 5.3/2.4. Remains on small dose IV phenylephrine, Primacor. Heart hugger in place with patient unable to use appropriately secondary to edema in his hands, antiembolism stockings, SCDs present. - Gastrointestinal Gastrointestinal Comment(s): Abdomen soft, non-tender, non-distended, obese. Active bowel sounds present x 4 quadrants. Tolerating ice chips, clear liquids. Denies flatus, positive nausea. - Genitourinary Genitourinary Comment(s): Richmond present draining cloudy, yellow urine. Urine output 30-35 mL per hour overnight. - Integumentary Integumentary Comment(s): Skin is warm and dry. Anterior chest incision well approximated covered with dry intact dressing. Left radial artery harvest site well approximated, good cap refill, pt denies numbness/tingling, able to move fingers. Left lower extremity EVH site well approximated - Neurologic Neurologic: Present: CNII-XII intact - Musculoskeletal Musculoskeletal: Present: generalized weakness, strength equal bilaterally - Psychiatric Psychiatric: Present: A&O x's 3, appropriate affect, intact judgment & insight - Allied health notes Allied health notes reviewed: nursing - Labs CBC & Chem 7: 09/15/19 05:00 09/15/19 05:00 Labs: Abnormal Lab Results - Last 24 Hours (Table) 09/11/19 09/14/19 09/14/19 Range/Units 11:31 07:05 08:05 WBC (3.8-10.6) k/uL RBC (4.30-5.90) m/uL Hgb (13.0-17.5) gm/dL Hct (39.0-53.0) % RDW (11.5-15.5) % Plt Count (150-450) k/uL Neutrophils # (1.3-7.7) k/uL Neutrophils # (Manual) (1.3-7.7) k/uL Monocytes # (0-1.0) k/uL Monocytes # (Manual) (0-1.0) k/uL Nucleated RBCs (0-0) /100 WBC ABG Lactic Acid (0.5-1.6) mmol/L Chloride (98-107) mmol/L Carbon Dioxide (22-30) mmol/L BUN (9-20) mg/dL Glucose (74-99) mg/dL POC Glucose (mg/dL) 110 H (75-99) mg/dL Calcium (8.4-10.2) mg/dL AST (17-59) U/L ALT (21-72) U/L Total Protein (6.3-8.2) g/dL Albumin (3.5-5.0) g/dL Urine Protein 1+ H (Negative) Urine Blood Moderate H (Negative) Urine RBC 81 H (0-5) /hpf Urine WBC 42 H (0-5) /hpf Urine WBC Clumps Many H (None) /hpf Urine Bacteria Rare H (None) /hpf Urine Mucus Rare H (None) /hpf Crossmatch See Detail 09/14/19 09/14/19 09/14/19 Range/Units 09:00 09:00 09:02 WBC 15.7 H (3.8-10.6) k/uL RBC 2.56 L (4.30-5.90) m/uL Hgb 8.2 L (13.0-17.5) gm/dL Hct 22.9 L (39.0-53.0) % RDW 15.8 H (11.5-15.5) % Plt Count 75 L (150-450) k/uL Neutrophils # 12.3 H (1.3-7.7) k/uL Neutrophils # (Manual) (1.3-7.7) k/uL Monocytes # 1.2 H (0-1.0) k/uL Monocytes # (Manual) (0-1.0) k/uL Nucleated RBCs (0-0) /100 WBC ABG Lactic Acid 2.3 H* (0.5-1.6) mmol/L Chloride (98-107) mmol/L Carbon Dioxide (22-30) mmol/L BUN (9-20) mg/dL Glucose (74-99) mg/dL POC Glucose (mg/dL) 170 H (75-99) mg/dL Calcium (8.4-10.2) mg/dL AST (17-59) U/L ALT (21-72) U/L Total Protein (6.3-8.2) g/dL Albumin (3.5-5.0) g/dL Urine Protein (Negative) Urine Blood (Negative) Urine RBC (0-5) /hpf Urine WBC (0-5) /hpf Urine WBC Clumps (None) /hpf Urine Bacteria (None) /hpf Urine Mucus (None) /hpf Crossmatch 09/14/19 09/14/19 09/14/19 Range/Units 10:11 11:02 12:04 WBC (3.8-10.6) k/uL RBC (4.30-5.90) m/uL Hgb (13.0-17.5) gm/dL Hct (39.0-53.0) % RDW (11.5-15.5) % Plt Count (150-450) k/uL Neutrophils # (1.3-7.7) k/uL Neutrophils # (Manual) (1.3-7.7) k/uL Monocytes # (0-1.0) k/uL Monocytes # (Manual) (0-1.0) k/uL Nucleated RBCs (0-0) /100 WBC ABG Lactic Acid (0.5-1.6) mmol/L Chloride (98-107) mmol/L Carbon Dioxide (22-30) mmol/L BUN (9-20) mg/dL Glucose (74-99) mg/dL POC Glucose (mg/dL) 142 H 161 H 144 H (75-99) mg/dL Calcium (8.4-10.2) mg/dL AST (17-59) U/L ALT (21-72) U/L Total Protein (6.3-8.2) g/dL Albumin (3.5-5.0) g/dL Urine Protein (Negative) Urine Blood (Negative) Urine RBC (0-5) /hpf Urine WBC (0-5) /hpf Urine WBC Clumps (None) /hpf Urine Bacteria (None) /hpf Urine Mucus (None) /hpf Crossmatch 09/14/19 09/14/19 09/14/19 Range/Units 13:08 13:59 14:00 WBC (3.8-10.6) k/uL RBC (4.30-5.90) m/uL Hgb (13.0-17.5) gm/dL Hct (39.0-53.0) % RDW (11.5-15.5) % Plt Count (150-450) k/uL Neutrophils # (1.3-7.7) k/uL Neutrophils # (Manual) (1.3-7.7) k/uL Monocytes # (0-1.0) k/uL Monocytes # (Manual) (0-1.0) k/uL Nucleated RBCs (0-0) /100 WBC ABG Lactic Acid 2.3 H* (0.5-1.6) mmol/L Chloride (98-107) mmol/L Carbon Dioxide (22-30) mmol/L BUN (9-20) mg/dL Glucose (74-99) mg/dL POC Glucose (mg/dL) 152 H 162 H (75-99) mg/dL Calcium (8.4-10.2) mg/dL AST (17-59) U/L ALT (21-72) U/L Total Protein (6.3-8.2) g/dL Albumin (3.5-5.0) g/dL Urine Protein (Negative) Urine Blood (Negative) Urine RBC (0-5) /hpf Urine WBC (0-5) /hpf Urine WBC Clumps (None) /hpf Urine Bacteria (None) /hpf Urine Mucus (None) /hpf Crossmatch 09/14/19 09/14/19 09/14/19 Range/Units 15:02 16:07 17:13 WBC (3.8-10.6) k/uL RBC (4.30-5.90) m/uL Hgb (13.0-17.5) gm/dL Hct (39.0-53.0) % RDW (11.5-15.5) % Plt Count (150-450) k/uL Neutrophils # (1.3-7.7) k/uL Neutrophils # (Manual) (1.3-7.7) k/uL Monocytes # (0-1.0) k/uL Monocytes # (Manual) (0-1.0) k/uL Nucleated RBCs (0-0) /100 WBC ABG Lactic Acid (0.5-1.6) mmol/L Chloride (98-107) mmol/L Carbon Dioxide (22-30) mmol/L BUN (9-20) mg/dL Glucose (74-99) mg/dL POC Glucose (mg/dL) 156 H 159 H 147 H (75-99) mg/dL Calcium (8.4-10.2) mg/dL AST (17-59) U/L ALT (21-72) U/L Total Protein (6.3-8.2) g/dL Albumin (3.5-5.0) g/dL Urine Protein (Negative) Urine Blood (Negative) Urine RBC (0-5) /hpf Urine WBC (0-5) /hpf Urine WBC Clumps (None) /hpf Urine Bacteria (None) /hpf Urine Mucus (None) /hpf Crossmatch 09/14/19 09/14/19 09/14/19 Range/Units 18:26 19:12 20:48 WBC (3.8-10.6) k/uL RBC (4.30-5.90) m/uL Hgb (13.0-17.5) gm/dL Hct (39.0-53.0) % RDW (11.5-15.5) % Plt Count (150-450) k/uL Neutrophils # (1.3-7.7) k/uL Neutrophils # (Manual) (1.3-7.7) k/uL Monocytes # (0-1.0) k/uL Monocytes # (Manual) (0-1.0) k/uL Nucleated RBCs (0-0) /100 WBC ABG Lactic Acid (0.5-1.6) mmol/L Chloride (98-107) mmol/L Carbon Dioxide (22-30) mmol/L BUN (9-20) mg/dL Glucose (74-99) mg/dL POC Glucose (mg/dL) 158 H 134 H 139 H (75-99) mg/dL Calcium (8.4-10.2) mg/dL AST (17-59) U/L ALT (21-72) U/L Total Protein (6.3-8.2) g/dL Albumin (3.5-5.0) g/dL Urine Protein (Negative) Urine Blood (Negative) Urine RBC (0-5) /hpf Urine WBC (0-5) /hpf Urine WBC Clumps (None) /hpf Urine Bacteria (None) /hpf Urine Mucus (None) /hpf Crossmatch 09/14/19 09/15/19 09/15/19 Range/Units 22:58 01:25 03:03 WBC (3.8-10.6) k/uL RBC (4.30-5.90) m/uL Hgb (13.0-17.5) gm/dL Hct (39.0-53.0) % RDW (11.5-15.5) % Plt Count (150-450) k/uL Neutrophils # (1.3-7.7) k/uL Neutrophils # (Manual) (1.3-7.7) k/uL Monocytes # (0-1.0) k/uL Monocytes # (Manual) (0-1.0) k/uL Nucleated RBCs (0-0) /100 WBC ABG Lactic Acid (0.5-1.6) mmol/L Chloride (98-107) mmol/L Carbon Dioxide (22-30) mmol/L BUN (9-20) mg/dL Glucose (74-99) mg/dL POC Glucose (mg/dL) 137 H 154 H 138 H (75-99) mg/dL Calcium (8.4-10.2) mg/dL AST (17-59) U/L ALT (21-72) U/L Total Protein (6.3-8.2) g/dL Albumin (3.5-5.0) g/dL Urine Protein (Negative) Urine Blood (Negative) Urine RBC (0-5) /hpf Urine WBC (0-5) /hpf Urine WBC Clumps (None) /hpf Urine Bacteria (None) /hpf Urine Mucus (None) /hpf Crossmatch 09/15/19 09/15/19 09/15/19 Range/Units 04:22 05:00 05:00 WBC 15.8 H (3.8-10.6) k/uL RBC 2.48 L (4.30-5.90) m/uL Hgb 7.6 L (13.0-17.5) gm/dL Hct 22.8 L (39.0-53.0) % RDW 16.1 H (11.5-15.5) % Plt Count 56 L (150-450) k/uL Neutrophils # (1.3-7.7) k/uL Neutrophils # (Manual) 13.10 H (1.3-7.7) k/uL Monocytes # (0-1.0) k/uL Monocytes # (Manual) 1.11 H (0-1.0) k/uL Nucleated RBCs 4 H (0-0) /100 WBC ABG Lactic Acid (0.5-1.6) mmol/L Chloride 109 H (98-107) mmol/L Carbon Dioxide 33 H (22-30) mmol/L BUN 24 H (9-20) mg/dL Glucose 123 H (74-99) mg/dL POC Glucose (mg/dL) 143 H (75-99) mg/dL Calcium 7.6 L (8.4-10.2) mg/dL AST 319 H (17-59) U/L ALT 384 H (21-72) U/L Total Protein 4.5 L (6.3-8.2) g/dL Albumin 2.6 L (3.5-5.0) g/dL Urine Protein (Negative) Urine Blood (Negative) Urine RBC (0-5) /hpf Urine WBC (0-5) /hpf Urine WBC Clumps (None) /hpf Urine Bacteria (None) /hpf Urine Mucus (None) /hpf Crossmatch 09/15/19 Range/Units 06:08 WBC (3.8-10.6) k/uL RBC (4.30-5.90) m/uL Hgb (13.0-17.5) gm/dL Hct (39.0-53.0) % RDW (11.5-15.5) % Plt Count (150-450) k/uL Neutrophils # (1.3-7.7) k/uL Neutrophils # (Manual) (1.3-7.7) k/uL Monocytes # (0-1.0) k/uL Monocytes # (Manual) (0-1.0) k/uL Nucleated RBCs (0-0) /100 WBC ABG Lactic Acid (0.5-1.6) mmol/L Chloride (98-107) mmol/L Carbon Dioxide (22-30) mmol/L BUN (9-20) mg/dL Glucose (74-99) mg/dL POC Glucose (mg/dL) 117 H (75-99) mg/dL Calcium (8.4-10.2) mg/dL AST (17-59) U/L ALT (21-72) U/L Total Protein (6.3-8.2) g/dL Albumin (3.5-5.0) g/dL Urine Protein (Negative) Urine Blood (Negative) Urine RBC (0-5) /hpf Urine WBC (0-5) /hpf Urine WBC Clumps (None) /hpf Urine Bacteria (None) /hpf Urine Mucus (None) /hpf Crossmatch Microbiology - Last 24 Hours (Table) 09/14/19 00:17 Gram Stain - Preliminary Sputum Sputum Culture - Preliminary 09/14/19 07:05 Urine Culture - Preliminary Urine,Voided - Imaging and Cardiology Chest x-ray: image reviewed Assessment and Plan Assessment: 1. Triple-vessel calcified coronary artery disease, non-STEMI in this admission, status post urgent two-vessel bypass 2. Severe aortic valve stenosis, status post bioprosthetic aortic valve replacement 3. Mild to moderate tricuspid valve regurgitation 4. Hypertension 5. Hyperlipidemia 6. History of ITP status post splenectomy 7. Type 2 diabetes mellitus, hemoglobin A1c 6.6% 8. Obesity 9. Previous tobacco dependence, moderate COPD with FEV1 54% of predicted 10. Postoperative lactic acidosis with metabolic acidosis, resolving 11. Postoperative thrombocytopenia 12. Postoperative hypotension, resolving 13. Postoperative hypernatremia, resolved 14. Postoperative acute blood loss anemia with postoperative bleeding, status post reoperation with sternal exploration and evacuation of clots 15. Postoperative transaminitis 16. Postoperative prolonged mechanical ventilation 17. Postoperative atrial fibrillation, currently in normal sinus rhythm Plan: 1. Continue to optimize medical management with low dose aspirin, plavix, statin and beta robin. Will increase beta robin as able. 2. Continue amiodarone. Will transition to oral. No anticoagulation unless afib >24 hours. 3. Wean oxygen as tolerated. Encourage incentive spirometry as tolerated. Bronchodilators per pulmonology, will discuss steroid based inhaler with pulmonary 4. Continue primacor. Wean/stop phenylephrine as tolerated 5. Increase activity as tolerated, out of bed to chair. PT/OT/cardiac rehab following 6. Will monitor daily x-rays and labs. Electrolyte replacement per protocol. Calcium replaced 7. Insulin management per primary care service 8. Pain control per current medication regimen 9. GI/DVT prophylaxis. Will stop SQ heparin and start Arixtra 10. Keep Richmond catheter for strict accurate intake and output. Will give 40 mg IV lasix today 11. Keep mediastinal, pleural chest tubes for another 24 hours. Keep swan today. 12. Will obtain ABG to eval CO2 13. More recommendations to follow based on patient's clinical course. Time with Patient: Greater than 30
[2019-09-15 08:13] LABS: Glucose,Whole Blood 119 mg/dL (75-99)
[2019-09-15] MEDS: PANTOPRAZOLE 40 MG/10 ML VIAL IVP SCH (08:18)
[2019-09-15] MEDS: ONDANSETRON 4 MG/2 ML VIAL IVP PRN ×2 (08:18→14:03)
[2019-09-15] MEDS: MUPIROCIN 2% OINT 22 GM TUBE NASAL SCH ×2 (08:19→21:19)
[2019-09-15] MEDS: CLOPIDOGREL 75 MG TAB PO SCH (08:19)
[2019-09-15] MEDS: ASPIRIN 81 MG PO SCH (08:19)
[2019-09-15] MEDS: METOPROLOL TARTRATE 12.5 MG TAB PO SCH ×2 (08:19→21:18)
[2019-09-15] MEDS: FONDAPARINUX 2.5 MG/0.5 ML SYRINGE SQ SCH (08:26)
[2019-09-15 09:04] LABS: Glucose,Whole Blood 121 mg/dL (75-99)
[2019-09-15 09:58] LABS: Glucose,Whole Blood 111 mg/dL (75-99)
--- NOTE | 2019-09-15 10:08 | P.PN ---
Subjective Progress Note Date: 09/15/19 On today's evaluation of 09/15/2019 I'm seeing this patient for a follow-up. The patient is looking better. He is awake and alert. He is hemodynamically doing better. He is currently on milrinone at 0.125 g per KG per minute and his cardiac output is at X.7 with an index of 3.1. PA diastolic is 21 mm. CVP is around 14. The patient was given Lasix 40 mg and is producing excellent amount of urine output. Chest x-ray showing better pleural effusion. [place] catheter is in good location. Sternum stable clean and intact. He has a congested cough. Bringing up minimal amount of sputum. He is afebrile for now. Infection is doubtful. The patient has increased edema both in upper and lower extremities. Platelet count is stable at 49. Chest tubes are in place. No evidence of any air leak. No evidence of any significant bleeding from the chest tube sites. He is postop day #3. Objective - Vital Signs Vital signs: Vital Signs Temp 97.8 F 09/15/19 08:00 Pulse 90 09/15/19 09:00 Resp 11 L 09/15/19 09:00 BP 87/58 09/15/19 09:00 Pulse Ox 95 09/15/19 09:00 Intake & Output 09/14/19 09/15/19 09/15/19 18:59 06:59 18:59 Intake Total 1826.630 699.259 275.992 Output Total 771 614 690 Balance 1055.630 85.259 -414.008 Weight 123 kg Intake: IV 769 658 266 Dextrose 5% in Water 1, 550 500 200 000 ml @ 20 mls/hr IV . Q24H [facility] Rx#:[id number] Pressure bag 99 108 36 co/ci 120 50 30 Intake, IV Titration 747.630 41.259 9.992 Amount Insulin Regular 100 unit 77.766 41.259 9.992 In Sodium Chloride 0.9% 100 ml @ Titrate IV .Q0M [facility] Rx#:[id number] Phenylephrine 40 mg In 332.285 Dextrose 5% in Water 250 ml @ 0.5 MCG/KG/MIN 20. 384 mls/hr IV .[id number] [facility] Rx#:[id number] Potassium Chloride 10 meq 100 In Water For Injection 1 100ml.bag @ 100 mls/hr IVPB Q1H [facility] Rx#: [id number] Potassium Chloride 10 meq 200 In Water For Injection 1 100ml.bag @ 100 mls/hr IVPB Q1H [facility] Rx#: [id number] Propofol 1,000 mg In 37.579 Empty Bag 1 bag @ Titrate IV .Q0M [facility] Rx#: [id number] Blood Product 310 Rc As-1 Unit 310 [id number] Output: Chest Tube Drainage 266 240 70 Bilateral Mediastinal 120 100 20 left pleural 146 140 50 Urine 505 374 620 Other: Voiding Method Indwelling Catheter Indwelling Catheter Indwelling Catheter ABP, PAP, CO, CI - Last Documented Arterial Blood Pressure 127/63 Pulmonary Artery Pressure 54/29 Cardiac Output 6.7 Cardiac Index 3.1 - Exam - Constitutional General appearance: Present: cooperative, no acute distress, obese - Respiratory Details: Lung sounds diminished bilaterally with crackles in the bases. Respirations even, non-labored. Currently on 4L NC with oxygen saturation 96%. Only able to achieve 500 mL on his incentive spirometry. Strong productive cough. Mediastinal chest tube to continuous wall suction, 80 mL serosanguinous drainage overnight, 200 mL in the last 24 hours, no air leak present. Left pleural chest tube to continuous wall suction, 100 mL serosanguinous drainage overnight, 300 mL in the last 24 hours, no air leak present. - Cardiovascular Details: S1, S2 present. Regular rate and rhythm, sinus rhythm on telemetry. Sternum stable. A/V epicardial pacemaker wires present, connected to generator, generator turned off. Palpable peripheral pulses bilaterally. Generalized edema present. Right internal jugular [place]ordis, right radial arterial line present. Last CO/CI 5.3/2.4. Remains on small dose IV phenylephrine, Primacor. Heart hugger in place with patient unable to use appropriately secondary to edema in his hands, antiembolism stockings, SCDs present. - Gastrointestinal Gastrointestinal Comment(s): Abdomen soft, non-tender, non-distended, obese. Active bowel sounds present x 4 quadrants. Tolerating ice chips, clear liquids. Denies flatus, positive nausea. - Genitourinary Genitourinary Comment(s): [place] present draining cloudy, yellow urine. Urine output 30-35 mL per hour overnight. - Integumentary Integumentary Comment(s): Skin is warm and dry. Anterior chest incision well approximated covered with dry intact dressing. Left radial artery harvest site well approximated, good cap refill, pt denies numbness/tingling, able to move fingers. Left lower extremity EVH site well approximated - Neurologic Neurologic: Present: CNII-XII intact - Musculoskeletal Musculoskeletal: Present: generalized weakness, strength equal bilaterally - Psychiatric Psychiatric: Present: A&O x's 3, appropriate affect, intact judgment & insight - Labs CBC & Chem 7: 09/15/19 05:00 09/15/19 05:00 Labs: Abnormal Lab Results - Last 24 Hours (Table) 09/11/19 09/14/19 09/14/19 Range/Units 11:31 10:11 11:02 WBC (3.8-10.6) k/uL RBC (4.30-5.90) m/uL Hgb (13.0-17.5) gm/dL Hct (39.0-53.0) % RDW (11.5-15.5) % Plt Count (150-450) k/uL Neutrophils # (Manual) (1.3-7.7) k/uL Monocytes # (Manual) (0-1.0) k/uL Nucleated RBCs (0-0) /100 WBC ABG pCO2 (35-45) mmHg ABG HCO3 (21-25) mmol/L ABG Total CO2 (19-24) mmol/L ABG O2 Saturation (94-97) % ABG Lactic Acid (0.5-1.6) mmol/L Chloride (98-107) mmol/L Carbon Dioxide (22-30) mmol/L BUN (9-20) mg/dL Glucose (74-99) mg/dL POC Glucose (mg/dL) 142 H 161 H (75-99) mg/dL Calcium (8.4-10.2) mg/dL AST (17-59) U/L ALT (21-72) U/L Total Protein (6.3-8.2) g/dL Albumin (3.5-5.0) g/dL Crossmatch See Detail 09/14/19 09/14/19 09/14/19 Range/Units 12:04 13:08 13:59 WBC (3.8-10.6) k/uL RBC (4.30-5.90) m/uL Hgb (13.0-17.5) gm/dL Hct (39.0-53.0) % RDW (11.5-15.5) % Plt Count (150-450) k/uL Neutrophils # (Manual) (1.3-7.7) k/uL Monocytes # (Manual) (0-1.0) k/uL Nucleated RBCs (0-0) /100 WBC ABG pCO2 (35-45) mmHg ABG HCO3 (21-25) mmol/L ABG Total CO2 (19-24) mmol/L ABG O2 Saturation (94-97) % ABG Lactic Acid (0.5-1.6) mmol/L Chloride (98-107) mmol/L Carbon Dioxide (22-30) mmol/L BUN (9-20) mg/dL Glucose (74-99) mg/dL POC Glucose (mg/dL) 144 H 152 H 162 H (75-99) mg/dL Calcium (8.4-10.2) mg/dL AST (17-59) U/L ALT (21-72) U/L Total Protein (6.3-8.2) g/dL Albumin (3.5-5.0) g/dL Crossmatch 09/14/19 09/14/19 09/14/19 Range/Units 14:00 15:02 16:07 WBC (3.8-10.6) k/uL RBC (4.30-5.90) m/uL Hgb (13.0-17.5) gm/dL Hct (39.0-53.0) % RDW (11.5-15.5) % Plt Count (150-450) k/uL Neutrophils # (Manual) (1.3-7.7) k/uL Monocytes # (Manual) (0-1.0) k/uL Nucleated RBCs (0-0) /100 WBC ABG pCO2 (35-45) mmHg ABG HCO3 (21-25) mmol/L ABG Total CO2 (19-24) mmol/L ABG O2 Saturation (94-97) % ABG Lactic Acid 2.3 H* (0.5-1.6) mmol/L Chloride (98-107) mmol/L Carbon Dioxide (22-30) mmol/L BUN (9-20) mg/dL Glucose (74-99) mg/dL POC Glucose (mg/dL) 156 H 159 H (75-99) mg/dL Calcium (8.4-10.2) mg/dL AST (17-59) U/L ALT (21-72) U/L Total Protein (6.3-8.2) g/dL Albumin (3.5-5.0) g/dL Crossmatch 09/14/19 09/14/19 09/14/19 Range/Units 17:13 18:26 19:12 WBC (3.8-10.6) k/uL RBC (4.30-5.90) m/uL Hgb (13.0-17.5) gm/dL Hct (39.0-53.0) % RDW (11.5-15.5) % Plt Count (150-450) k/uL Neutrophils # (Manual) (1.3-7.7) k/uL Monocytes # (Manual) (0-1.0) k/uL Nucleated RBCs (0-0) /100 WBC ABG pCO2 (35-45) mmHg ABG HCO3 (21-25) mmol/L ABG Total CO2 (19-24) mmol/L ABG O2 Saturation (94-97) % ABG Lactic Acid (0.5-1.6) mmol/L Chloride (98-107) mmol/L Carbon Dioxide (22-30) mmol/L BUN (9-20) mg/dL Glucose (74-99) mg/dL POC Glucose (mg/dL) 147 H 158 H 134 H (75-99) mg/dL Calcium (8.4-10.2) mg/dL AST (17-59) U/L ALT (21-72) U/L Total Protein (6.3-8.2) g/dL Albumin (3.5-5.0) g/dL Crossmatch 09/14/19 09/14/19 09/15/19 Range/Units 20:48 22:58 01:25 WBC (3.8-10.6) k/uL RBC (4.30-5.90) m/uL Hgb (13.0-17.5) gm/dL Hct (39.0-53.0) % RDW (11.5-15.5) % Plt Count (150-450) k/uL Neutrophils # (Manual) (1.3-7.7) k/uL Monocytes # (Manual) (0-1.0) k/uL Nucleated RBCs (0-0) /100 WBC ABG pCO2 (35-45) mmHg ABG HCO3 (21-25) mmol/L ABG Total CO2 (19-24) mmol/L ABG O2 Saturation (94-97) % ABG Lactic Acid (0.5-1.6) mmol/L Chloride (98-107) mmol/L Carbon Dioxide (22-30) mmol/L BUN (9-20) mg/dL Glucose (74-99) mg/dL POC Glucose (mg/dL) 139 H 137 H 154 H (75-99) mg/dL Calcium (8.4-10.2) mg/dL AST (17-59) U/L ALT (21-72) U/L Total Protein (6.3-8.2) g/dL Albumin (3.5-5.0) g/dL Crossmatch 09/15/19 09/15/19 09/15/19 Range/Units 03:03 04:22 05:00 WBC 15.8 H (3.8-10.6) k/uL RBC 2.48 L (4.30-5.90) m/uL Hgb 7.6 L (13.0-17.5) gm/dL Hct 22.8 L (39.0-53.0) % RDW 16.1 H (11.5-15.5) % Plt Count 56 L (150-450) k/uL Neutrophils # (Manual) 13.10 H (1.3-7.7) k/uL Monocytes # (Manual) 1.11 H (0-1.0) k/uL Nucleated RBCs 4 H (0-0) /100 WBC ABG pCO2 (35-45) mmHg ABG HCO3 (21-25) mmol/L ABG Total CO2 (19-24) mmol/L ABG O2 Saturation (94-97) % ABG Lactic Acid (0.5-1.6) mmol/L Chloride (98-107) mmol/L Carbon Dioxide (22-30) mmol/L BUN (9-20) mg/dL Glucose (74-99) mg/dL POC Glucose (mg/dL) 138 H 143 H (75-99) mg/dL Calcium (8.4-10.2) mg/dL AST (17-59) U/L ALT (21-72) U/L Total Protein (6.3-8.2) g/dL Albumin (3.5-5.0) g/dL Crossmatch 09/15/19 09/15/19 09/15/19 Range/Units 05:00 06:08 08:05 WBC (3.8-10.6) k/uL RBC (4.30-5.90) m/uL Hgb (13.0-17.5) gm/dL Hct (39.0-53.0) % RDW (11.5-15.5) % Plt Count (150-450) k/uL Neutrophils # (Manual) (1.3-7.7) k/uL Monocytes # (Manual) (0-1.0) k/uL Nucleated RBCs (0-0) /100 WBC ABG pCO2 47 H (35-45) mmHg ABG HCO3 31 H (21-25) mmol/L ABG Total CO2 32 H (19-24) mmol/L ABG O2 Saturation 98.2 H (94-97) % ABG Lactic Acid (0.5-1.6) mmol/L Chloride 109 H (98-107) mmol/L Carbon Dioxide 33 H (22-30) mmol/L BUN 24 H (9-20) mg/dL Glucose 123 H (74-99) mg/dL POC Glucose (mg/dL) 117 H (75-99) mg/dL Calcium 7.6 L (8.4-10.2) mg/dL AST 319 H (17-59) U/L ALT 384 H (21-72) U/L Total Protein 4.5 L (6.3-8.2) g/dL Albumin 2.6 L (3.5-5.0) g/dL Crossmatch 09/15/19 09/15/19 09/15/19 Range/Units 08:11 09:03 09:57 WBC (3.8-10.6) k/uL RBC (4.30-5.90) m/uL Hgb (13.0-17.5) gm/dL Hct (39.0-53.0) % RDW (11.5-15.5) % Plt Count (150-450) k/uL Neutrophils # (Manual) (1.3-7.7) k/uL Monocytes # (Manual) (0-1.0) k/uL Nucleated RBCs (0-0) /100 WBC ABG pCO2 (35-45) mmHg ABG HCO3 (21-25) mmol/L ABG Total CO2 (19-24) mmol/L ABG O2 Saturation (94-97) % ABG Lactic Acid (0.5-1.6) mmol/L Chloride (98-107) mmol/L Carbon Dioxide (22-30) mmol/L BUN (9-20) mg/dL Glucose (74-99) mg/dL POC Glucose (mg/dL) 119 H 121 H 111 H (75-99) mg/dL Calcium (8.4-10.2) mg/dL AST (17-59) U/L ALT (21-72) U/L Total Protein (6.3-8.2) g/dL Albumin (3.5-5.0) g/dL Crossmatch Microbiology - Last 24 Hours (Table) 09/14/19 07:05 Blood Culture - Preliminary Blood No Growth after 24 hours 09/14/19 00:17 Gram Stain - Preliminary Sputum Sputum Culture - Preliminary 09/14/19 07:05 Urine Culture - Preliminary Urine,Voided Assessment and Plan Plan: 1 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 Postop day #3 2 coronary valve stenosis post aortic valve withabioprostheticvalve.Patientispostopday#3. 3 bleeding postoperatively, multifactorial including consumptive thrombocytopenia and the patient required a total of 7 units of packed RBCs, 5 units of fresh frozen plasma, 2 units of platelets and 2 units of cryoprecipitate. Currently platelet counts are stable and the patient is not showing any signs of bleeding 4. Shock related to above with bleeding and tamponade physiology, post reexploration and evacuation of blood clots around the pericardium. 5 history of ITP postsplenectomy. Platelet counts are stable 6 diabetes mellitus currently on insulin drip for blood sugar control 7 obesity 8 obstructive sleep apnea not utilizing any form of CPAP therapy on outpatient basis due to poor tolerability currently off BiPAP and currently on 4 L about 2 by nasal cannula 9 acute hypoxic respiratory failure, expected outcome of surgery 10 bilateral pleural effusions, expected outcome of surgery 11 blood loss anemia, acute, postop, expected outcome of surgery Plan Agree on diuretics. Monitor hemodynamics. Wean off milrinone and Fco- Synephrine which are currently at minimal dose. I think it would respond nicely to diuretics. Encourage use of incentive spirometer. The patient has bilateral pleural effusion. Platelet counts are stable. Hemoglobin is stable. Anticipate further recovery. Wean down the FiO2. We'll follow. Infection is doubtful.
[2019-09-15] MEDS: PHENYLEPHRINE IV SCH ×4 (10:25→21:23)
[2019-09-15] MEDS: DEXTROSE 5% IV SCH ×4 (10:25→21:23)
[2019-09-15] MEDS: WATER IV SCH ×4 (10:25→21:23)
[2019-09-15] MEDS: MILRINONE-D5W PMX 20 MG in DEXTROSE/WATER 1 100ML.BAG IV SCH (10:25)
[2019-09-15 11:01] LABS: Glucose,Whole Blood 121 mg/dL (75-99)
[2019-09-15 11:57] LABS: Glucose,Whole Blood 140 mg/dL (75-99)
[2019-09-15 13:09] LABS: Glucose,Whole Blood 133 mg/dL (75-99)
[2019-09-15 14:14] LABS: Glucose,Whole Blood 132 mg/dL (75-99)
--- NOTE | 2019-09-15 14:17 | P.PN ---
Subjective Progress Note Date: 09/15/19 Principal diagnosis: 69-year-old male with a past medical history of coronary artery disease status post CABG, aortic stenosis, type 2 diabetes mellitus, hyperlipidemia, obstructive sleep apnea on CPAP coming to the hospital with a chief complaint of syncope. Patient states for the past 1-2 months he has been having dizziness and feels lightheaded. Yesterday he felt dizzy and passed out for almost 5-10 minutes. Patient denies having any loss of bowel or bladder control. No tongue bites. He denies having any chest pain or palpitations. Patient states that he gets short of breath on taking a flight of stairs in the recent months. Patient has, motor that is consistent with severe aortic stenosis, he states that he has this murmur for a long period of time. Patient denies having any fevers chills or rigors. No cough or difficulty in breathing. No dysuria or hematuria. No alcohol pain nausea vomiting or diarrhea. No weakness of his extremities. No headaches or blurring of vision. No speech abnormalities. In the emergency room patient had a CT of the head that was showing no acute intracranial process. He also had a chest x-ray that is within normal limits and an EKG showing normal sinus rhythm. There is mild elevation of troponins at 0.047. The patient has been admitted for further management. On 09/08/2019 - patient is sitting up in a chair by the bedside comfortably. He had an episode of dizziness this morning when he tried to get from the room to his bathroom. He did not have a fall. His headaches are much better. He denies having any chest pain. Mild shortness of breath. No cough. He denies having any fevers chills or rigors. No lower extremity swelling. Patient denies having any abdominal pain. Denies noticing any bleeding from any site. Patient's vitals have been stable. No acute events reported by nursing staff. Patient had an echocardiogram done this morning showing severe aortic stenosis. 09/09/2019 Patient will undergo cardiac catheterization and DAMARI today. Further management and plan depending on the DAMARI results of recent cardiac catheterization findings. Patient is complaining of mild lightheadedness no other significant symptoms at this time 09/10/2019 Patient is clinically doing well is found that there was a disease patient is being evaluated for CABG and aortic valve replacement. Patient is alert and oriented 3 to me but patient apparently was having some hallucinations which I believe secondary to benzodiazepines which were discontinued and Dilaudid will be discontinued and patient will need some nonpharmacological measures including ambulating the hallways will open of the windows and I believe this is secondary to owners and due to prolonged hospitalization 09/13/2019 Patient underwent coronary artery bypass grafting yesterday along with Arctic valve replacement patient the head bleeding and operative site area retro- cardiac bleeding for which patient has to borrow to go to or again for extubation and evacuation of clots patient received multiple blood product transfusion including PRBC transfusion. Patient is prior presently on multiple pressors including norepinephrine and vasopressin and Fco-Synephrine. Patient is also on milrinone and is receiving metoprolol as well. Patient is on patient is presently intubated sedated FiO2 of around 35% area patient is on D5W because of hypernatremia 09/14/2019 No overnight events patient is clinically doing better than yesterday patient is only and Fco-Synephrine now , Levothroid and vasopressin were discontinued and patient is on milrinone and IV insulin. Patient still has the chest tube patient is off sedation doing well and minimal vent settings 6 of PEEP of 10. Patient probably will be extubated today. Review of systems: Unable to obtain due to his clinical condition All inpatient medications were reviewed and appropriate changes in these medications as dictated in the interval history and assessment and plan. 09/15/2019 Patient is sitting up in bed in no acute distress . Patient is lethargic but easily arousable. Patient is currently being closely monitored in the ICU. Patient was extubated yesterday and is currently on milrinone, phenylephrine, amiodarone, and insulin drips. Yesterday patient had a brief period of atrial fibrillation and was placed on an amiodarone drip and is currently normal sinus at this time. Patient will likely be transitioned to oral amiodarone. Patient continues to have generalized edema noted to the upper and lower extremities and has been given IV Lasix. Patient's urine output has increased. Patient currently denies any chest pain or palpitations. Patient states that he does have some shortness of breath but has improved since yesterday. Patient also has a cough that is causing some chest discomfort with some phlegm production but has been unable to expectorate. Encouraged coughing and deep breathing along with incentive spirometer use at least 10 times every hour while awake. Patient currently remains on an insulin drip for tight glycemic control and will continue at this time until patient is eating. Patient was requesting PT/OT. Will continue to monitor closely. Objective - Vital Signs Vital signs: Vital Signs Temp 98.1 F 09/15/19 12:00 Pulse 87 09/15/19 12:00 Resp 14 09/15/19 12:00 BP 87/58 09/15/19 09:00 Pulse Ox 95 09/15/19 12:00 Intake & Output 09/14/19 09/15/19 09/15/19 18:59 06:59 18:59 Intake Total 1826.630 889.002 345.542 Output Total 771 614 955 Balance 1055.630 275.002 -609.458 Weight 123 kg Intake: IV 769 658 324 Dextrose 5% in Water 1, 550 500 240 000 ml @ 20 mls/hr IV . Q24H [facility] Rx#:[id number] Pressure bag 99 108 54 co/ci 120 50 30 Intake, IV Titration 747.630 231.002 21.542 Amount Insulin Regular 100 unit 77.766 41.259 21.542 In Sodium Chloride 0.9% 100 ml @ Titrate IV .Q0M [facility] Rx#:[id number] Milrinone-D5w Pmx 20 mg 100 In Dextrose/Water 1 100ml .bag @ 0.125 MCG/KG/MIN 4 .013 mls/hr IV .Q24H [facility] Rx#:[id number] Phenylephrine 40 mg In 332.285 89.743 Dextrose 5% in Water 250 ml @ 0.5 MCG/KG/MIN 20. 384 mls/hr IV .[id number] [facility] Rx#:[id number] Potassium Chloride 10 meq 100 In Water For Injection 1 100ml.bag @ 100 mls/hr IVPB Q1H [facility] Rx#: [id number] Potassium Chloride 10 meq 200 In Water For Injection 1 100ml.bag @ 100 mls/hr IVPB Q1H [facility] Rx#: [id number] Propofol 1,000 mg In 37.579 Empty Bag 1 bag @ Titrate IV .Q0M [facility] Rx#: [id number] Blood Product 310 Rc As-1 Unit 310 [id number] Output: Chest Tube Drainage 266 240 110 Bilateral Mediastinal 120 100 40 left pleural 146 140 70 Urine 505 374 845 Other: Voiding Method Indwelling Catheter Indwelling Catheter Indwelling Catheter ABP, PAP, CO, CI - Last Documented Arterial Blood Pressure 107/52 Pulmonary Artery Pressure 45/24 Cardiac Output 6.7 Cardiac Index 3.1 - Exam GENERAL: Patient is sitting up in bed sleeping but easily arousable in no acute distress. HEENT: Pupils are round and equally reacting to light. EOMI. No scleral icterus. No conjunctival pallor. Normocephalic, atraumatic. No pharyngeal erythema. No thyromegaly. CARDIOVASCULAR: S1 and S2 present. No rubs, or gallops. systolic murmur PULMONARY: Diminished breath sounds at the bases with a few scattered crackles noted. Patient has 2 mediastinal and left pleural chest tubes, [place] in place on the right. ABDOMEN: Soft, obese, nontender, nondistended, hypoactive bowel sounds. No palpable organomegaly. MUSCULOSKELETAL: No joint swelling or deformity. EXTREMITIES: No cyanosis, clubbing, or pedal edema. Generalized edema noted to bilateral upper extremities with 2+ pitting edema NEUROLOGICAL: Moving all 4 limbs, off sedation SKIN: No rashes. - Labs CBC & Chem 7: 09/15/19 05:00 09/15/19 05:00 Labs: Abnormal Lab Results - Last 24 Hours (Table) 09/11/19 09/14/19 09/14/19 Range/Units 11:31 13:59 14:00 WBC (3.8-10.6) k/uL RBC (4.30-5.90) m/uL Hgb (13.0-17.5) gm/dL Hct (39.0-53.0) % RDW (11.5-15.5) % Plt Count (150-450) k/uL Neutrophils # (Manual) (1.3-7.7) k/uL Monocytes # (Manual) (0-1.0) k/uL Nucleated RBCs (0-0) /100 WBC ABG pCO2 (35-45) mmHg ABG HCO3 (21-25) mmol/L ABG Total CO2 (19-24) mmol/L ABG O2 Saturation (94-97) % ABG Lactic Acid 2.3 H* (0.5-1.6) mmol/L Chloride (98-107) mmol/L Carbon Dioxide (22-30) mmol/L BUN (9-20) mg/dL Glucose (74-99) mg/dL POC Glucose (mg/dL) 162 H (75-99) mg/dL Calcium (8.4-10.2) mg/dL AST (17-59) U/L ALT (21-72) U/L Total Protein (6.3-8.2) g/dL Albumin (3.5-5.0) g/dL Crossmatch See Detail 09/14/19 09/14/19 09/14/19 Range/Units 15:02 16:07 17:13 WBC (3.8-10.6) k/uL RBC (4.30-5.90) m/uL Hgb (13.0-17.5) gm/dL Hct (39.0-53.0) % RDW (11.5-15.5) % Plt Count (150-450) k/uL Neutrophils # (Manual) (1.3-7.7) k/uL Monocytes # (Manual) (0-1.0) k/uL Nucleated RBCs (0-0) /100 WBC ABG pCO2 (35-45) mmHg ABG HCO3 (21-25) mmol/L ABG Total CO2 (19-24) mmol/L ABG O2 Saturation (94-97) % ABG Lactic Acid (0.5-1.6) mmol/L Chloride (98-107) mmol/L Carbon Dioxide (22-30) mmol/L BUN (9-20) mg/dL Glucose (74-99) mg/dL POC Glucose (mg/dL) 156 H 159 H 147 H (75-99) mg/dL Calcium (8.4-10.2) mg/dL AST (17-59) U/L ALT (21-72) U/L Total Protein (6.3-8.2) g/dL Albumin (3.5-5.0) g/dL Crossmatch 09/14/19 09/14/19 09/14/19 Range/Units 18:26 19:12 20:48 WBC (3.8-10.6) k/uL RBC (4.30-5.90) m/uL Hgb (13.0-17.5) gm/dL Hct (39.0-53.0) % RDW (11.5-15.5) % Plt Count (150-450) k/uL Neutrophils # (Manual) (1.3-7.7) k/uL Monocytes # (Manual) (0-1.0) k/uL Nucleated RBCs (0-0) /100 WBC ABG pCO2 (35-45) mmHg ABG HCO3 (21-25) mmol/L ABG Total CO2 (19-24) mmol/L ABG O2 Saturation (94-97) % ABG Lactic Acid (0.5-1.6) mmol/L Chloride (98-107) mmol/L Carbon Dioxide (22-30) mmol/L BUN (9-20) mg/dL Glucose (74-99) mg/dL POC Glucose (mg/dL) 158 H 134 H 139 H (75-99) mg/dL Calcium (8.4-10.2) mg/dL AST (17-59) U/L ALT (21-72) U/L Total Protein (6.3-8.2) g/dL Albumin (3.5-5.0) g/dL Crossmatch 09/14/19 09/15/19 09/15/19 Range/Units 22:58 01:25 03:03 WBC (3.8-10.6) k/uL RBC (4.30-5.90) m/uL Hgb (13.0-17.5) gm/dL Hct (39.0-53.0) % RDW (11.5-15.5) % Plt Count (150-450) k/uL Neutrophils # (Manual) (1.3-7.7) k/uL Monocytes # (Manual) (0-1.0) k/uL Nucleated RBCs (0-0) /100 WBC ABG pCO2 (35-45) mmHg ABG HCO3 (21-25) mmol/L ABG Total CO2 (19-24) mmol/L ABG O2 Saturation (94-97) % ABG Lactic Acid (0.5-1.6) mmol/L Chloride (98-107) mmol/L Carbon Dioxide (22-30) mmol/L BUN (9-20) mg/dL Glucose (74-99) mg/dL POC Glucose (mg/dL) 137 H 154 H 138 H (75-99) mg/dL Calcium (8.4-10.2) mg/dL AST (17-59) U/L ALT (21-72) U/L Total Protein (6.3-8.2) g/dL Albumin (3.5-5.0) g/dL Crossmatch 09/15/19 09/15/19 09/15/19 Range/Units 04:22 05:00 05:00 WBC 15.8 H (3.8-10.6) k/uL RBC 2.48 L (4.30-5.90) m/uL Hgb 7.6 L (13.0-17.5) gm/dL Hct 22.8 L (39.0-53.0) % RDW 16.1 H (11.5-15.5) % Plt Count 56 L (150-450) k/uL Neutrophils # (Manual) 13.10 H (1.3-7.7) k/uL Monocytes # (Manual) 1.11 H (0-1.0) k/uL Nucleated RBCs 4 H (0-0) /100 WBC ABG pCO2 (35-45) mmHg ABG HCO3 (21-25) mmol/L ABG Total CO2 (19-24) mmol/L ABG O2 Saturation (94-97) % ABG Lactic Acid (0.5-1.6) mmol/L Chloride 109 H (98-107) mmol/L Carbon Dioxide 33 H (22-30) mmol/L BUN 24 H (9-20) mg/dL Glucose 123 H (74-99) mg/dL POC Glucose (mg/dL) 143 H (75-99) mg/dL Calcium 7.6 L (8.4-10.2) mg/dL AST 319 H (17-59) U/L ALT 384 H (21-72) U/L Total Protein 4.5 L (6.3-8.2) g/dL Albumin 2.6 L (3.5-5.0) g/dL Crossmatch 09/15/19 09/15/19 09/15/19 Range/Units 06:08 08:05 08:11 WBC (3.8-10.6) k/uL RBC (4.30-5.90) m/uL Hgb (13.0-17.5) gm/dL Hct (39.0-53.0) % RDW (11.5-15.5) % Plt Count (150-450) k/uL Neutrophils # (Manual) (1.3-7.7) k/uL Monocytes # (Manual) (0-1.0) k/uL Nucleated RBCs (0-0) /100 WBC ABG pCO2 47 H (35-45) mmHg ABG HCO3 31 H (21-25) mmol/L ABG Total CO2 32 H (19-24) mmol/L ABG O2 Saturation 98.2 H (94-97) % ABG Lactic Acid (0.5-1.6) mmol/L Chloride (98-107) mmol/L Carbon Dioxide (22-30) mmol/L BUN (9-20) mg/dL Glucose (74-99) mg/dL POC Glucose (mg/dL) 117 H 119 H (75-99) mg/dL Calcium (8.4-10.2) mg/dL AST (17-59) U/L ALT (21-72) U/L Total Protein (6.3-8.2) g/dL Albumin (3.5-5.0) g/dL Crossmatch 09/15/19 09/15/19 09/15/19 Range/Units 09:03 09:57 10:59 WBC (3.8-10.6) k/uL RBC (4.30-5.90) m/uL Hgb (13.0-17.5) gm/dL Hct (39.0-53.0) % RDW (11.5-15.5) % Plt Count (150-450) k/uL Neutrophils # (Manual) (1.3-7.7) k/uL Monocytes # (Manual) (0-1.0) k/uL Nucleated RBCs (0-0) /100 WBC ABG pCO2 (35-45) mmHg ABG HCO3 (21-25) mmol/L ABG Total CO2 (19-24) mmol/L ABG O2 Saturation (94-97) % ABG Lactic Acid (0.5-1.6) mmol/L Chloride (98-107) mmol/L Carbon Dioxide (22-30) mmol/L BUN (9-20) mg/dL Glucose (74-99) mg/dL POC Glucose (mg/dL) 121 H 111 H 121 H (75-99) mg/dL Calcium (8.4-10.2) mg/dL AST (17-59) U/L ALT (21-72) U/L Total Protein (6.3-8.2) g/dL Albumin (3.5-5.0) g/dL Crossmatch 09/15/19 09/15/19 Range/Units 11:56 13:08 WBC (3.8-10.6) k/uL RBC (4.30-5.90) m/uL Hgb (13.0-17.5) gm/dL Hct (39.0-53.0) % RDW (11.5-15.5) % Plt Count (150-450) k/uL Neutrophils # (Manual) (1.3-7.7) k/uL Monocytes # (Manual) (0-1.0) k/uL Nucleated RBCs (0-0) /100 WBC ABG pCO2 (35-45) mmHg ABG HCO3 (21-25) mmol/L ABG Total CO2 (19-24) mmol/L ABG O2 Saturation (94-97) % ABG Lactic Acid (0.5-1.6) mmol/L Chloride (98-107) mmol/L Carbon Dioxide (22-30) mmol/L BUN (9-20) mg/dL Glucose (74-99) mg/dL POC Glucose (mg/dL) 140 H 133 H (75-99) mg/dL Calcium (8.4-10.2) mg/dL AST (17-59) U/L ALT (21-72) U/L Total Protein (6.3-8.2) g/dL Albumin (3.5-5.0) g/dL Crossmatch Microbiology - Last 24 Hours (Table) 09/14/19 00:17 Gram Stain - Preliminary Sputum Sputum Culture - Preliminary 09/14/19 07:05 Urine Culture - Final Urine,Voided 09/14/19 07:05 Blood Culture - Preliminary Blood No Growth after 24 hours Assessment and Plan Assessment: -Triple vessel coronary artery disease with a non-ST elevation myocardial infarction on admission status post CABG. -severe aortic stenosis status post bioprosthetic valve replacement. -Mild to moderate tricuspid regurgitation -Postoperative bleeding status post exploration and evacuation of blood clots -Respiratory failure postoperatively patient is off ventilatory support at this time and on 4 L via nasal cannula -Hyponatremia because of multiple IV fluid transfusion as patient is on D5w at this time. -Postoperative shock probably hypovolemic patient was on multiple pressors as mentioned above and has received multiple units of blood transfusions -non-ST elevation myocardial infarction with triple vessel disease -Type 2 diabetes mellitus -Hypertension -Hyperlipidemia -Obstructive sleep apnea
[2019-09-15] MEDS: CLEVIDIPINE BUTYRATE 25 MG in EMPTY BAG 1 BAG IV SCH (14:56)
[2019-09-15 14:58] LABS: Glucose,Whole Blood 144 mg/dL (75-99)
[2019-09-15 16:30] LABS: Glucose,Whole Blood 128 mg/dL (75-99)
[2019-09-15] MEDS: AMIODARONE 200 MG TAB PO SCH ×2 (16:35→21:18)
[2019-09-15 17:22] LABS: Glucose,Whole Blood 151 mg/dL (75-99)
--- NOTE | 2019-09-15 17:51 | P.CONS ---
History of Present Illness - Reason for Consult Consult date: 09/15/19 ITP Hx Requesting physician: Lavon Clark - Chief Complaint NSTEMI, syncopy - History of Present Illness We have been asked to follow along with pt for Hx of ITP, treated with splencectomy quite a few years ago, no recurrent episodes of ITP. Pt is s/p aortic valve replacement and CABG. He is sitting up in bed, is feeding him a Popsicle, he gives one word answers but he smiles a lot. Review of Systems 10 point ROS is negative except as stated in HPI 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 History of Any Multi-Drug Resistant Organisms: None Reported Past Surgical History: Appendectomy, Coronary Bypass/CABG Additional Past Surgical History / Comment(s): spleenectomy, sinus surgery, jaw surgery Past Anesthesia/Blood Transfusion Reactions: No Reported Reaction Past Psychological History: No Psychological Hx Reported Additional Psychological History / Comment(s): Patient does not relate to any psychiatric hospitalizations or psychiatric care. Has been seen by dermatology without evidence of any significant skin disorder that appears that there was referral in the past to psychiatry, patient however has not seen a psychiatrist. Smoking Status: Former smoker Past Alcohol Use History: None Reported Past Drug Use History: None Reported - Past Family History Mother Family Medical History: Congestive Heart Failure (CHF) Father Family Medical History: Myocardial Infarction (CT) Sister(s) Family Medical History: Coronary Artery Disease (CAD) Additional Family Medical History / Comment(s): Status post coronary artery bypass grafting surgery. Medications and Allergies Home Medications Medication Instructions Recorded Confirmed Type metFORMIN HCL 1,000 mg PO BID 10/11/14 09/06/19 History Calcium Carbonate [Calcium] 600 mg PO DAILY 09/06/19 09/06/19 History Cholecalciferol [Vitamin D3 (25 1,000 unit PO DAILY 09/06/19 09/06/19 History Mcg = 1000 Iu)] Gelatin 650mg 1,300 mg PO DAILY 09/06/19 09/06/19 History Krill Oil 500 mg PO DAILY 09/06/19 09/06/19 History Magnesium 200 mg PO DAILY 09/06/19 09/06/19 History Milk Thistle 150 mg PO DAILY 09/06/19 09/06/19 History [place]-3 Fatty Acids [[place]-3] 1,000 mg PO DAILY 09/06/19 09/06/19 History Ubidecarenone [Co Q-10] 100 mg PO DAILY 09/06/19 09/06/19 History Vitamin B Complex 1 cap PO DAILY 09/06/19 09/06/19 History Allergies Allergy/AdvReac Type Severity Reaction Status Date / Time No Known Allergies Allergy Verified 09/06/19 11:05 Physical Exam Vitals: Vital Signs Temp Pulse Resp BP Pulse Ox 09/15/19 17:00 83 26 H 100 09/15/19 16:58 84 09/15/19 16:49 84 09/15/19 16:00 98.1 F 85 22 99 09/15/19 15:00 88 16 95 09/15/19 14:00 85 16 94 L 09/15/19 13:00 84 12 96 09/15/19 12:00 98.1 F 87 14 95 09/15/19 11:07 85 09/15/19 11:00 86 20 98 09/15/19 10:58 88 09/15/19 10:00 90 19 96 09/15/19 09:00 90 11 L 87/58 95 09/15/19 08:00 97.8 F 85 13 87/58 96 09/15/19 07:25 88 09/15/19 07:11 86 09/15/19 07:00 86 11 L 87/58 96 09/15/19 06:00 85 17 87/58 96 09/15/19 05:00 86 18 87/58 97 09/15/19 04:00 85 17 87/58 97 09/15/19 03:00 86 17 87/58 97 09/15/19 02:00 85 17 87/58 98 09/15/19 01:00 85 18 87/58 98 09/15/19 00:00 97.4 F L 85 17 87/58 97 09/14/19 23:17 98 09/14/19 23:00 87 14 87/58 98 09/14/19 22:00 90 15 87/58 97 09/14/19 21:00 91 15 87/58 98 09/14/19 20:49 93 09/14/19 20:39 90 09/14/19 20:00 93 14 87/58 97 09/14/19 19:03 94 19 97 09/14/19 19:00 98.6 F 96 20 97 09/14/19 18:31 98 18 97 09/14/19 18:00 98.6 F 98 16 97 Intake and Output 09/15/19 09/15/19 09/15/19 06:59 14:59 22:59 Intake Total 612.844 444.292 131.5 Output Total 434 1095 90 Balance 178.844 -650.708 41.5 Intake: IV 402 403 117 Dextrose 5% in Water 1, 300 280 60 000 ml @ 20 mls/hr IV . Q24H [facility] Rx#:[id number] Pressure bag 72 63 27 co/ci 30 60 30 Intake, IV Titration 210.844 41.292 14.5 Amount Insulin Regular 100 unit 21.101 41.292 14.5 In Sodium Chloride 0.9% 100 ml @ Titrate IV .Q0M [facility] Rx#:[id number] Milrinone-D5w Pmx 20 mg 100 In Dextrose/Water 1 100ml .bag @ 0.125 MCG/KG/MIN 4 .013 mls/hr IV .Q24H [facility] Rx#:[id number] Phenylephrine 40 mg In 89.743 Dextrose 5% in Water 250 ml @ 0.5 MCG/KG/MIN 20. 384 mls/hr IV .[id number] M[facility]IMO Rx#:[id number] Output: Chest Tube Drainage 180 150 30 Bilateral Mediastinal 80 60 10 left pleural 100 90 20 Urine 254 945 60 Other: Voiding Method Indwelling Catheter Indwelling Catheter Indwelling Catheter Weight 123 kg ABP, PAP, CO, CI - Last 8 Hours Arterial Blood Pressure 108/58 Arterial Blood Pressure 111/57 Arterial Blood Pressure 108/56 Arterial Blood Pressure 94/53 Arterial Blood Pressure 108/61 Arterial Blood Pressure 107/52 Arterial Blood Pressure 113/59 Arterial Blood Pressure 105/56 Pulmonary Artery Pressure 37/18 Pulmonary Artery Pressure 41/18 Pulmonary Artery Pressure 37/18 Pulmonary Artery Pressure 39/18 Pulmonary Artery Pressure 49/26 Pulmonary Artery Pressure 45/24 Pulmonary Artery Pressure 41/19 Pulmonary Artery Pressure 42/21 Cardiac Output 9.4 Cardiac Output 9.4 Cardiac Output 9.4 Cardiac Output 9.4 Cardiac Output 6.7 Cardiac Output 6.7 Cardiac Output 6.7 Cardiac Index 4.3 Cardiac Index 4.3 Cardiac Index 4.3 Cardiac Index 4.3 Cardiac Index 3.1 Cardiac Index 3.1 Cardiac Index 3.1 - Constitutional General appearance: cooperative, mild distress, obese - EENT Eyes: anicteric sclerae, EOMI ENT: hearing grossly normal - Neck Neck: no lymphadenopathy - Respiratory weak inspiratory effort - Cardiovascular anasarca Heart sounds: normal: S1, S2 - Gastrointestinal General gastrointestinal: normal bowel sounds, soft - Psychiatric Psychiatric: A&O x's 3 Results CBC & Chem 7: 09/15/19 05:00 09/15/19 05:00 Labs: Abnormal Lab Results - Last 24 Hours (Table) 09/11/19 09/14/19 09/14/19 Range/Units 11:31 18:26 19:12 WBC (3.8-10.6) k/uL RBC (4.30-5.90) m/uL Hgb (13.0-17.5) gm/dL Hct (39.0-53.0) % RDW (11.5-15.5) % Plt Count (150-450) k/uL Neutrophils # (Manual) (1.3-7.7) k/uL Monocytes # (Manual) (0-1.0) k/uL Nucleated RBCs (0-0) /100 WBC ABG pCO2 (35-45) mmHg ABG HCO3 (21-25) mmol/L ABG Total CO2 (19-24) mmol/L ABG O2 Saturation (94-97) % Chloride (98-107) mmol/L Carbon Dioxide (22-30) mmol/L BUN (9-20) mg/dL Glucose (74-99) mg/dL POC Glucose (mg/dL) 158 H 134 H (75-99) mg/dL Calcium (8.4-10.2) mg/dL AST (17-59) U/L ALT (21-72) U/L Total Protein (6.3-8.2) g/dL Albumin (3.5-5.0) g/dL Crossmatch See Detail 09/14/19 09/14/19 09/15/19 Range/Units 20:48 22:58 01:25 WBC (3.8-10.6) k/uL RBC (4.30-5.90) m/uL Hgb (13.0-17.5) gm/dL Hct (39.0-53.0) % RDW (11.5-15.5) % Plt Count (150-450) k/uL Neutrophils # (Manual) (1.3-7.7) k/uL Monocytes # (Manual) (0-1.0) k/uL Nucleated RBCs (0-0) /100 WBC ABG pCO2 (35-45) mmHg ABG HCO3 (21-25) mmol/L ABG Total CO2 (19-24) mmol/L ABG O2 Saturation (94-97) % Chloride (98-107) mmol/L Carbon Dioxide (22-30) mmol/L BUN (9-20) mg/dL Glucose (74-99) mg/dL POC Glucose (mg/dL) 139 H 137 H 154 H (75-99) mg/dL Calcium (8.4-10.2) mg/dL AST (17-59) U/L ALT (21-72) U/L Total Protein (6.3-8.2) g/dL Albumin (3.5-5.0) g/dL Crossmatch 09/15/19 09/15/19 09/15/19 Range/Units 03:03 04:22 05:00 WBC 15.8 H (3.8-10.6) k/uL RBC 2.48 L (4.30-5.90) m/uL Hgb 7.6 L (13.0-17.5) gm/dL Hct 22.8 L (39.0-53.0) % RDW 16.1 H (11.5-15.5) % Plt Count 56 L (150-450) k/uL Neutrophils # (Manual) 13.10 H (1.3-7.7) k/uL Monocytes # (Manual) 1.11 H (0-1.0) k/uL Nucleated RBCs 4 H (0-0) /100 WBC ABG pCO2 (35-45) mmHg ABG HCO3 (21-25) mmol/L ABG Total CO2 (19-24) mmol/L ABG O2 Saturation (94-97) % Chloride (98-107) mmol/L Carbon Dioxide (22-30) mmol/L BUN (9-20) mg/dL Glucose (74-99) mg/dL POC Glucose (mg/dL) 138 H 143 H (75-99) mg/dL Calcium (8.4-10.2) mg/dL AST (17-59) U/L ALT (21-72) U/L Total Protein (6.3-8.2) g/dL Albumin (3.5-5.0) g/dL Crossmatch 09/15/19 09/15/19 09/15/19 Range/Units 05:00 06:08 08:05 WBC (3.8-10.6) k/uL RBC (4.30-5.90) m/uL Hgb (13.0-17.5) gm/dL Hct (39.0-53.0) % RDW (11.5-15.5) % Plt Count (150-450) k/uL Neutrophils # (Manual) (1.3-7.7) k/uL Monocytes # (Manual) (0-1.0) k/uL Nucleated RBCs (0-0) /100 WBC ABG pCO2 47 H (35-45) mmHg ABG HCO3 31 H (21-25) mmol/L ABG Total CO2 32 H (19-24) mmol/L ABG O2 Saturation 98.2 H (94-97) % Chloride 109 H (98-107) mmol/L Carbon Dioxide 33 H (22-30) mmol/L BUN 24 H (9-20) mg/dL Glucose 123 H (74-99) mg/dL POC Glucose (mg/dL) 117 H (75-99) mg/dL Calcium 7.6 L (8.4-10.2) mg/dL AST 319 H (17-59) U/L ALT 384 H (21-72) U/L Total Protein 4.5 L (6.3-8.2) g/dL Albumin 2.6 L (3.5-5.0) g/dL Crossmatch 09/15/19 09/15/19 09/15/19 Range/Units 08:11 09:03 09:57 WBC (3.8-10.6) k/uL RBC (4.30-5.90) m/uL Hgb (13.0-17.5) gm/dL Hct (39.0-53.0) % RDW (11.5-15.5) % Plt Count (150-450) k/uL Neutrophils # (Manual) (1.3-7.7) k/uL Monocytes # (Manual) (0-1.0) k/uL Nucleated RBCs (0-0) /100 WBC ABG pCO2 (35-45) mmHg ABG HCO3 (21-25) mmol/L ABG Total CO2 (19-24) mmol/L ABG O2 Saturation (94-97) % Chloride (98-107) mmol/L Carbon Dioxide (22-30) mmol/L BUN (9-20) mg/dL Glucose (74-99) mg/dL POC Glucose (mg/dL) 119 H 121 H 111 H (75-99) mg/dL Calcium (8.4-10.2) mg/dL AST (17-59) U/L ALT (21-72) U/L Total Protein (6.3-8.2) g/dL Albumin (3.5-5.0) g/dL Crossmatch 09/15/19 09/15/19 09/15/19 Range/Units 10:59 11:56 13:08 WBC (3.8-10.6) k/uL RBC (4.30-5.90) m/uL Hgb (13.0-17.5) gm/dL Hct (39.0-53.0) % RDW (11.5-15.5) % Plt Count (150-450) k/uL Neutrophils # (Manual) (1.3-7.7) k/uL Monocytes # (Manual) (0-1.0) k/uL Nucleated RBCs (0-0) /100 WBC ABG pCO2 (35-45) mmHg ABG HCO3 (21-25) mmol/L ABG Total CO2 (19-24) mmol/L ABG O2 Saturation (94-97) % Chloride (98-107) mmol/L Carbon Dioxide (22-30) mmol/L BUN (9-20) mg/dL Glucose (74-99) mg/dL POC Glucose (mg/dL) 121 H 140 H 133 H (75-99) mg/dL Calcium (8.4-10.2) mg/dL AST (17-59) U/L ALT (21-72) U/L Total Protein (6.3-8.2) g/dL Albumin (3.5-5.0) g/dL Crossmatch 09/15/19 09/15/19 09/15/19 Range/Units 14:11 14:57 16:28 WBC (3.8-10.6) k/uL RBC (4.30-5.90) m/uL Hgb (13.0-17.5) gm/dL Hct (39.0-53.0) % RDW (11.5-15.5) % Plt Count (150-450) k/uL Neutrophils # (Manual) (1.3-7.7) k/uL Monocytes # (Manual) (0-1.0) k/uL Nucleated RBCs (0-0) /100 WBC ABG pCO2 (35-45) mmHg ABG HCO3 (21-25) mmol/L ABG Total CO2 (19-24) mmol/L ABG O2 Saturation (94-97) % Chloride (98-107) mmol/L Carbon Dioxide (22-30) mmol/L BUN (9-20) mg/dL Glucose (74-99) mg/dL POC Glucose (mg/dL) 132 H 144 H 128 H (75-99) mg/dL Calcium (8.4-10.2) mg/dL AST (17-59) U/L ALT (21-72) U/L Total Protein (6.3-8.2) g/dL Albumin (3.5-5.0) g/dL Crossmatch 09/15/19 Range/Units 17:21 WBC (3.8-10.6) k/uL RBC (4.30-5.90) m/uL Hgb (13.0-17.5) gm/dL Hct (39.0-53.0) % RDW (11.5-15.5) % Plt Count (150-450) k/uL Neutrophils # (Manual) (1.3-7.7) k/uL Monocytes # (Manual) (0-1.0) k/uL Nucleated RBCs (0-0) /100 WBC ABG pCO2 (35-45) mmHg ABG HCO3 (21-25) mmol/L ABG Total CO2 (19-24) mmol/L ABG O2 Saturation (94-97) % Chloride (98-107) mmol/L Carbon Dioxide (22-30) mmol/L BUN (9-20) mg/dL Glucose (74-99) mg/dL POC Glucose (mg/dL) 151 H (75-99) mg/dL Calcium (8.4-10.2) mg/dL AST (17-59) U/L ALT (21-72) U/L Total Protein (6.3-8.2) g/dL Albumin (3.5-5.0) g/dL Crossmatch Microbiology - Last 24 Hours (Table) 09/14/19 00:17 Gram Stain - Preliminary Sputum Sputum Culture - Preliminary 09/14/19 07:05 Urine Culture - Final Urine,Voided 09/14/19 07:05 Blood Culture - Preliminary Blood No Growth after 24 hours Assessment and Plan (1) Chronic ITP (idiopathic thrombocytopenia) Narrative/Plan: Chronic ITP, 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 Antiplatelet therapy, DVT prophylaxis, transfuse to keep platelets >50,000 Current Visit: Yes Status: Chronic Priority: Medium Code(s): D69.3 - IMMUNE THROMBOCYTOPENIC PURPURA SNOMED Code(s): 45395040
[2019-09-15 18:03] LABS: Glucose,Whole Blood 146 mg/dL (75-99)
[2019-09-15 19:01] LABS: Glucose,Whole Blood 147 mg/dL (75-99)
[2019-09-15 20:12] LABS: Glucose,Whole Blood 118 mg/dL (75-99)
[2019-09-15] MEDS: SENNOSIDES-DOCUSATE SODIUM 1 EACH TAB PO SCH (21:18)
[2019-09-15] MEDS: ATORVASTATIN 40 MG TAB PO SCH (21:18)
[2019-09-15 22:05] LABS: Glucose,Whole Blood 126 mg/dL (75-99)
[2019-09-16 05:02] LABS: Glucose,Whole Blood 125 mg/dL (75-99)
[2019-09-16 05:02] LABS: Glucose,Whole Blood 142 mg/dL (75-99)
[2019-09-16 05:02] LABS: Glucose,Whole Blood 147 mg/dL (75-99)
[2019-09-16 05:02] LABS: Glucose,Whole Blood 151 mg/dL (75-99)
[2019-09-16 05:02] LABS: Glucose,Whole Blood 133 mg/dL (75-99)
[2019-09-16] MEDS: DEXTROSE 5% IV SCH ×2 (05:40)
[2019-09-16] MEDS: WATER IV SCH ×2 (05:40)
[2019-09-16] MEDS: MILRINONE-D5W PMX 20 MG in DEXTROSE/WATER 1 100ML.BAG IV SCH (05:40)
[2019-09-16] MEDS: PHENYLEPHRINE IV SCH ×2 (05:40)
[2019-09-16 06:38] LABS: Glucose,Whole Blood 96 mg/dL (75-99)
[2019-09-16 07:19] LABS: Anisocytosis Slight; HCT 23.1 % (39.0-53.0); HGB 7.7 gm/dL (13.0-17.5); MCH 31.5 pg (25.0-35.0); MCHC 33.6 g/dL (31.0-37.0); MCV 93.8 fL (80.0-100.0); Mean Platelet Volume 10.6; Poikilocytosis Slight; RBC 2.46 m/uL (4.30-5.90); RDW 16.5 % (11.5-15.5)
[2019-09-16 07:22] LABS: Platelet Count 81 k/uL (150-450)
[2019-09-16 07:36] LABS: Ionized Calcium 4.4 mg/dL (4.5-5.3)
[2019-09-16 07:47] LABS: ALT 324 U/L (21-72); AST 143 U/L (17-59); African American GFR (CKD) >90 (>60 ml/min/1.73 sqM); Albumin 2.7 g/dL (3.5-5.0); Alkaline Phosphatase 143 U/L (38-126); Anion Gap 2 mmol/L; Blood Urea Nitrogen 31 mg/dL (9-20); Calcium 7.7 mg/dL (8.4-10.2); Carbon Dioxide 33 mmol/L (22-30); Chloride 106 mmol/L (98-107); Glucose 92 mg/dL (74-99); Magnesium 2.4 mg/dL (1.6-2.3); Non-African American GFR(CKD) >90 (>60 ml/min/1.73 sqM); Potassium 4.2 mmol/L (3.5-5.1); Sodium 141 mmol/L (137-145); Total Bilirubin 0.9 mg/dL (0.2-1.3); Total Protein 4.8 g/dL (6.3-8.2)
[2019-09-16] MEDS: IPRATROPIUM-ALBUTEROL 3 ML NEB INHALATION SCH ×4 (07:53→19:05)
[2019-09-16] MEDS ORDERED: FUROSEMIDE 10 MG/ML 2 ML VIAL IV ONE ×2 (08:08→16:41)
--- NOTE | 2019-09-16 08:16 | XR ---
EXAMINATION TYPE: XR chest 1V portable DATE OF EXAM: 09/16/2019 HISTORY: Post Op CABG COMPARISON: 09/15/2019 TECHNIQUE: Single view of the chest is submitted. FINDINGS: SG catheter, mediastinal drains and chest tubes are appropriately placed. Post operative changes of CABG. No sizeable pneumothorax. Scattered Pleural-parenchymal opacities may reflect atelectasis. Pulmonary venous congestion and smal l effusions. The heart is mildly enlarged. IMPRESSION: 1. Post operative changes of CABG.
--- NOTE | 2019-09-16 08:28 | P.PN ---
Subjective Progress Note Date: 09/16/19 On today's evaluation of 09/15/2019 I'm seeing this patient for a follow-up. The patient is looking better. He is awake and alert. He is hemodynamically doing better. He is currently on milrinone at 0.125 g per KG per minute and his cardiac output is at X.7 with an index of 3.1. PA diastolic is 21 mm. CVP is around 14. The patient was given Lasix 40 mg and is producing excellent amount of urine output. Chest x-ray showing better pleural effusion. [place] catheter is in good location. Sternum stable clean and intact. He has a congested cough. Bringing up minimal amount of sputum. He is afebrile for now. Infection is doubtful. The patient has increased edema both in upper and lower extremities. Platelet count is stable at 49. Chest tubes are in place. No evidence of any air leak. No evidence of any significant bleeding from the chest tube sites. He is postop day #3. 09/16/2019 I'm seeing the patient for a follow-up. He is awake and alert. Hemodynamically he was taken off the Fco-Synephrine and he remains on a low dose milrinone 0.125 g per KG per minute. Most recent cardiac output is at 5.5 with an index of 2.5. Pulmonary artery pressures of 44/26. Chest x-ray from today showing bilateral pleural effusion and cardiomegaly and pulmonary vessel congestion. Is producing excellent urine output and his urine output was in order of 3 L yesterday and the neck fluid balance was -1.4 L. He is going to receive another 20 mg of IV Lasix. His cardiac rhythm is sinus however overnight he is going back and forth into atrial fibrillation. He is on oral amiodarone. He is going to be started on Cardizem also here chest tubes are in place. There is no evidence of air leak. Output is minimal. The patient is a mediastinal and left pleural chest tube. The edema is still present in all 4 extremities although it is improving. No fever. No chills. Is postop day #4. Platelet counts are improving and it up to 81 and the patient is currently on Arixtra. Objective - Vital Signs Vital signs: Vital Signs Temp 97.3 F L 09/16/19 00:00 Pulse 87 09/16/19 07:54 Resp 22 09/16/19 07:00 BP 87/58 09/16/19 07:00 Pulse Ox 93 L 09/16/19 07:54 Intake & Output 09/15/19 09/16/19 09/16/19 18:59 06:59 18:59 Intake Total 070.166 5953.208 29 Output Total 1265 1810 60 Balance -631.208 -786.792 -31 Weight 121.2 kg Intake: IV 578 379 29 Dextrose 5% in Water 1, 380 220 20 000 ml @ 20 mls/hr IV . Q24H [facility] Rx#:[id number] Pressure bag 108 99 9 co/ci 90 60 Intake, IV Titration 55.792 44.208 Amount Insulin Regular 100 unit 55.792 44.208 In Sodium Chloride 0.9% 100 ml @ Titrate IV .Q0M [facility] Rx#:[id number] Oral 600 Output: Chest Tube Drainage 200 Bilateral Mediastinal 70 left pleural 130 Urine 1065 1810 60 Other: Voiding Method Indwelling Catheter Indwelling Catheter # Voids 1 # Bowel Movements 1 ABP, PAP, CO, CI - Last Documented Arterial Blood Pressure 119/65 Pulmonary Artery Pressure 48/27 Cardiac Output 5.5 Cardiac Index 2.5 - Exam - Constitutional General appearance: Present: cooperative, no acute distress, obese - Respiratory Details: Lung sounds diminished bilaterally with crackles in the bases. Respirations even, non-labored. Currently on 2L NC with oxygen saturation 96%. Only able to achieve 500 mL on his incentive spirometry. Strong productive cough. Pleural c hest tube has put out 1 30 mL over the past 24 hours in the mediastinal chest tube was put out 70 mL. There is no evidence of any air leak. - Cardiovascular Details: S1, S2 present. Regular rate and rhythm, sinus rhythm on telemetry. Sternum stable. A/V epicardial pacemaker wires present, connected to generator, generator turned off. Palpable peripheral pulses bilaterally. Generalized edema present. Right internal jugular [place]/Cordis, right radial arterial line present. Last CO/CI 5.5 with a index of 2.1. Remains on small dose , Primacor. Heart hugger in place with patient unable to use appropriately secondary to edema in his hands, antiembolism stockings, SCDs present. - Gastrointestinal Gastrointestinal Comment(s): Abdomen soft, non-tender, non-distended, obese. Active bowel sounds present x 4 quadrants. Tolerating ice chips, clear liquids. Denies flatus, positive nausea. - Genitourinary Genitourinary Comment(s): [place] present draining cloudy, yellow urine. Urine output 50 mL per hour overnight. - Integumentary Integumentary Comment(s): Skin is warm and dry. Anterior chest incision well approximated covered with dry intact dressing. Left radial artery harvest site well approximated, good cap refill, pt denies numbness/tingling, able to move fingers. Left lower extremity EVH site well approximated - Neurologic Neurologic: Present: CNII-XII intact - Musculoskeletal Musculoskeletal: Present: generalized weakness, strength equal bilaterally - Psychiatric Psychiatric: Present: A&O x's 3, appropriate affect, intact judgment & insight - Labs CBC & Chem 7: 09/16/19 06:00 09/16/19 06:00 Labs: Abnormal Lab Results - Last 24 Hours (Table) 09/15/19 09/15/19 09/15/19 Range/Units 09:03 09:57 10:59 WBC (3.8-10.6) k/uL RBC (4.30-5.90) m/uL Hgb (13.0-17.5) gm/dL Hct (39.0-53.0) % RDW (11.5-15.5) % Plt Count (150-450) k/uL Carbon Dioxide (22-30) mmol/L BUN (9-20) mg/dL POC Glucose (mg/dL) 121 H 111 H 121 H (75-99) mg/dL Calcium (8.4-10.2) mg/dL Ionized Calcium [place] (4.5-5.3) mg/dL Magnesium (1.6-2.3) mg/dL AST (17-59) U/L ALT (21-72) U/L Alkaline Phosphatase (38-126) U/L Total Protein (6.3-8.2) g/dL Albumin (3.5-5.0) g/dL 09/15/19 09/15/19 09/15/19 Range/Units 11:56 13:08 14:11 WBC (3.8-10.6) k/uL RBC (4.30-5.90) m/uL Hgb (13.0-17.5) gm/dL Hct (39.0-53.0) % RDW (11.5-15.5) % Plt Count (150-450) k/uL Carbon Dioxide (22-30) mmol/L BUN (9-20) mg/dL POC Glucose (mg/dL) 140 H 133 H 132 H (75-99) mg/dL Calcium (8.4-10.2) mg/dL Ionized Calcium [place] (4.5-5.3) mg/dL Magnesium (1.6-2.3) mg/dL AST (17-59) U/L ALT (21-72) U/L Alkaline Phosphatase (38-126) U/L Total Protein (6.3-8.2) g/dL Albumin (3.5-5.0) g/dL 09/15/19 09/15/19 09/15/19 Range/Units 14:57 16:28 17:21 WBC (3.8-10.6) k/uL RBC (4.30-5.90) m/uL Hgb (13.0-17.5) gm/dL Hct (39.0-53.0) % RDW (11.5-15.5) % Plt Count (150-450) k/uL Carbon Dioxide (22-30) mmol/L BUN (9-20) mg/dL POC Glucose (mg/dL) 144 H 128 H 151 H (75-99) mg/dL Calcium (8.4-10.2) mg/dL Ionized Calcium [place] (4.5-5.3) mg/dL Magnesium (1.6-2.3) mg/dL AST (17-59) U/L ALT (21-72) U/L Alkaline Phosphatase (38-126) U/L Total Protein (6.3-8.2) g/dL Albumin (3.5-5.0) g/dL 09/15/19 09/15/19 09/15/19 Range/Units 18:01 19:00 20:11 WBC (3.8-10.6) k/uL RBC (4.30-5.90) m/uL Hgb (13.0-17.5) gm/dL Hct (39.0-53.0) % RDW (11.5-15.5) % Plt Count (150-450) k/uL Carbon Dioxide (22-30) mmol/L BUN (9-20) mg/dL POC Glucose (mg/dL) 146 H 147 H 118 H (75-99) mg/dL Calcium (8.4-10.2) mg/dL Ionized Calcium [place] (4.5-5.3) mg/dL Magnesium (1.6-2.3) mg/dL AST (17-59) U/L ALT (21-72) U/L Alkaline Phosphatase (38-126) U/L Total Protein (6.3-8.2) g/dL Albumin (3.5-5.0) g/dL 09/15/19 09/15/19 09/16/19 Range/Units 22:04 23:05 00:12 WBC (3.8-10.6) k/uL RBC (4.30-5.90) m/uL Hgb (13.0-17.5) gm/dL Hct (39.0-53.0) % RDW (11.5-15.5) % Plt Count (150-450) k/uL Carbon Dioxide (22-30) mmol/L BUN (9-20) mg/dL POC Glucose (mg/dL) 126 H 147 H 151 H (75-99) mg/dL Calcium (8.4-10.2) mg/dL Ionized Calcium [place] (4.5-5.3) mg/dL Magnesium (1.6-2.3) mg/dL AST (17-59) U/L ALT (21-72) U/L Alkaline Phosphatase (38-126) U/L Total Protein (6.3-8.2) g/dL Albumin (3.5-5.0) g/dL 09/16/19 09/16/19 09/16/19 Range/Units 01:54 03:28 04:42 WBC (3.8-10.6) k/uL RBC (4.30-5.90) m/uL Hgb (13.0-17.5) gm/dL Hct (39.0-53.0) % RDW (11.5-15.5) % Plt Count (150-450) k/uL Carbon Dioxide (22-30) mmol/L BUN (9-20) mg/dL POC Glucose (mg/dL) 142 H 125 H 133 H (75-99) mg/dL Calcium (8.4-10.2) mg/dL Ionized Calcium [place] (4.5-5.3) mg/dL Magnesium (1.6-2.3) mg/dL AST (17-59) U/L ALT (21-72) U/L Alkaline Phosphatase (38-126) U/L Total Protein (6.3-8.2) g/dL Albumin (3.5-5.0) g/dL 09/16/19 09/16/19 Range/Units 06:00 06:00 WBC 19.0 H (3.8-10.6) k/uL RBC 2.46 L (4.30-5.90) m/uL Hgb 7.7 L (13.0-17.5) gm/dL Hct 23.1 L (39.0-53.0) % RDW 16.5 H (11.5-15.5) % Plt Count 81 L (150-450) k/uL Carbon Dioxide 33 H (22-30) mmol/L BUN 31 H (9-20) mg/dL POC Glucose (mg/dL) (75-99) mg/dL Calcium 7.7 L (8.4-10.2) mg/dL Ionized Calcium [place] 4.4 L (4.5-5.3) mg/dL Magnesium 2.4 H (1.6-2.3) mg/dL AST 143 H (17-59) U/L ALT 324 H (21-72) U/L Alkaline Phosphatase 143 H (38-126) U/L Total Protein 4.8 L (6.3-8.2) g/dL Albumin 2.7 L (3.5-5.0) g/dL Microbiology - Last 24 Hours (Table) 09/14/19 00:17 Gram Stain - Preliminary Sputum Sputum Culture - Preliminary 09/14/19 07:05 Urine Culture - Final Urine,Voided 09/14/19 07:05 Blood Culture - Preliminary Blood No Growth after 24 hours Assessment and Plan Plan: 1 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 Postop day #4 2 coronary valve stenosis post aortic valve withabioprostheticvalve. Postop day #4 3 bleeding postoperatively, multifactorial including consumptive thrombocytopenia and the patient required a total of 7 units of packed RBCs, 5 units of fresh frozen plasma, 2 units of platelets and 2 units of cryoprecip itate. Currently platelet counts are stable is improving. Platelet count is up to 81 and a hemoglobin is up to 1.7. 4. Shock related to above with bleeding and tamponade physiology, post reexplor ation and evacuation of blood clots around the pericardium. She is currently doing well. He is off the Fco-Synephrine drip. His receiving low-dose Primacor for blood pressure and hemodynamic support. 5 history of ITP postsplenectomy. Platelet counts are stable, improving on Arixtra 6 diabetes mellitus currently on insulin drip for blood sugar control 7 obesity 8 obstructive sleep apnea not utilizing any form of CPAP therapy on outpatient basis due to poor tolerability currently off BiPAP and currently on 2 L about 2 by nasal cannula 9 acute hypoxic respiratory failure, expected outcome of surgery 10 bilateral pleural effusions, expected outcome of surgery 11 blood loss anemia, acute, postop, expected outcome of surgery 12 paroxysmal atrial fibrillation alternating with sinus rhythm Plan The plan is to wean off the Primacor. Monitor hemodynamics. He is off the Fco-Synephrine. He is going to receive another 20 mg IV Lasix. Urine output is order of 50 mL an hour. Monitor hemoglobin. Monitor platelet count. He is on Arixtra. Platelet counts are stable and there are improving. No evidence of any bleeding. 30 moving the chest tubes today and this will be discussed with the surgeon. Patient is postop day #4. He is afebrile. Encourage using incentive spirometer. We'll continue to follow.
[2019-09-16] MEDS ORDERED: CALCIUM GLUCONATE 1 GM in SODIUM CHLORIDE 0.9% 100 ML IVPB ONE (08:30)
[2019-09-16 08:37] LABS: Band Neutrophils % 2 %; Basophils # (M) 0.17 k/uL (0-0.2); Lymphocytes # (M) 3.02 k/uL (1.0-4.8); Metamyelocytes # (M) 0.17 k/uL (0); Metamyelocytes % 1 %; Monocytes # (M) 1.18 k/uL (0-1.0); Myelocytes # (M) 0.17 k/uL (0); Myelocytes % 1 %; Neutrophils % (M) 69 %; Nucleated Red Blood Cells 13 /100 WBC (0-0); Total Cells Counted 200; WBC 16.8 k/uL (3.8-10.6)
--- NOTE | 2019-09-16 08:37 | PN ---
PROGRESS NOTE Mr. Nelson is a 69-year-old male who underwent redo coronary bypass grafting with bypass to the circumflex and the RCA, aortic valve replacement. He is extubated on a lower dose of Fco-Synephrine and continues to be on Milrinone. He with a loosely otherwise he is stable. He is in sinus mechanism. He had no significant tach. He has no evidence of ventricular tachycardia. He has short bursts of atrial fibrillation. His urine output is being stable. He complains of generalized decrease in soreness. He continues to be on oral amiodarone in Lipitor at 400 mg twice a day aspirin 81 mg daily, Lipitor 40 mg daily Plavix 75 mg daily, metoprolol tartrate 12 and 0.5 mg twice a day. PHYSICAL EXAMINATION: Blood pressure 119/60 with a heart rate in the 80s. His PA pressure is 48. The lungs with decreased breath sounds at the bases no wheezes heart is rhythm S1, S2. No S3. No rub with a systolic murmur. ABDOMEN: Soft nontender extremities no significant edema. LAB DATA: Was hemoglobin 7.7. White of his platelets of 81,000. BUN and creatinine [birth year]1929 and 0.82. He has AST is 143, which is improved compared to yesterday. He has ALT is 324, improved as well. IMPRESSION: 1. Status post redo of open-heart with aortic valve replacement, bypass to the right and circumflex to postoperative bleeding stable. 2. Thrombocytopenia, improving. 3. Paroxysmal atrial fibrillation. Remains in sinus mechanism. 4. History of diabetes. 5. History of chronic obstructive lung disease. RECOMMENDATION: We will continue to wean his pressors is calmer increase his physical activity. Continue incentive spirometry. Hemodynamically, he is doing much better. Neurologically he is stable. The importance of the incentive spirometry was discussed with the patient in detail. MMODL / IJN: [id number] /
[2019-09-16 08:39] LABS: Large Platelets Present; Polychromasia Present
--- NOTE | 2019-09-16 08:43 | P.PN ---
Subjective Progress Note Date: 09/16/19 Principal diagnosis: Severe aortic valve stenosis and triple-vessel calcified coronary artery disease. Past medical history significant for coronary artery disease, status post MID CAB in 1999 with his left internal mammary artery to left anterior descending coronary artery, known aortic valve stenosis, hypertension, hyperlipidemia, history of platelet disorder status post splenectomy, diabetes mellitus type 2, obesity and previous tobacco dependance. POD #4 Urgent median sternotomy with redo double coronary artery bypass grafting using the left radial artery from the aorta to the right coronary artery, reverse saphenous vein graft from the aorta to the obtuse marginal artery, aortic valve replacement using a 25 mm Inspiris pericardial bioprosthesis, endoscopic harvesting of the left radial artery, endoscopic harvesting of the left greater saphenous vein in the groin to above the ankle level, intraoperative graft flow measurements using the [employer] system, intraoperative transesophageal echocardiogram and epi-aortic scanning Postoperative prolonged mechanical ventilation secondary to re-operation and acidosis, unexpected Postoperative lactic acidosis with metabolic acidosis, unexpected Postoperative thrombocytopenia, expected Postoperative hypotension, unexpected Postoperative hypernatremia, unexpected Postoperative acute blood loss anemia, expected from hemodilution and cardiopulmonary bypass, with postoperative bleeding which was unexpected POD #3 re-operation, sternal exploration with evacuation of clots Postoperative transaminitis, somewhat expected due to hypotension Postoperative atrial fibrillation, unexpected but common occurance after open heart surgery The patient is currently sitting up in bed in the intensive care unit eating his breakfast, no acute distress noted. Was successfully extubated to bipap 09/14/19, currently on 2L NC. States pain is mostly controlled with current pain regimen, does complain of some shortness of breath and weakness. States he feels "terrible". Continues to make improvements clinically, continues to be off Levophed and vasopressin, remains on small dose of phenylephrine and Primacor. Vital signs are stable. Patient had brief episodes of A fib last night, however mostly in sinus rhythm. Generalized edema present. Mediastinal x 2 and left pleural chest tubes remain with decreasing output. Objective - Vital Signs Vital signs: Vital Signs Temp 97.3 F L 09/16/19 00:00 Pulse 89 09/16/19 07:00 Resp 22 09/16/19 07:00 BP 87/58 09/16/19 07:00 Pulse Ox 92 L 09/16/19 07:00 Intake & Output 09/15/19 09/16/19 09/16/19 18:59 06:59 18:59 Intake Total 548.376 8708.208 29 Output Total 1265 1810 60 Balance -631.208 -786.792 -31 Weight 121.2 kg Intake: IV 578 379 29 Dextrose 5% in Water 1, 380 220 20 000 ml @ 20 mls/hr IV . Q24H MASSIMO Rx#:[id number] Pressure bag 108 99 9 co/ci 90 60 Intake, IV Titration 55.792 44.208 Amount Insulin Regular 100 unit 55.792 44.208 In Sodium Chloride 0.9% 100 ml @ Titrate IV .Q0M MASSIMO Rx#:[id number] Oral 600 Output: Chest Tube Drainage 200 Bilateral Mediastinal 70 left pleural 130 Urine 1065 1810 60 Other: Voiding Method Indwelling Catheter # Voids 1 # Bowel Movements 1 ABP, PAP, CO, CI - Last Documented Arterial Blood Pressure 119/65 Pulmonary Artery Pressure 48/27 Cardiac Output 5.5 Cardiac Index 2.5 - Exam Patient awake, calm, and cooperative. No distress noted, obese. - Constitutional General appearance: Present: cooperative, no acute distress - Respiratory Details: Lungs sound coarse throughout, crackles to bilateral bases. Respirations even, slightly labored, currently on 2L NC with a SPO2 92%. Only able to achieve 500 ml on incentive spirometer. Strong productive cough. Mediastinal chest tubes x 2 and 1 left pleural chest tube to -20cm H2O suction, no airleak noted. Mediastinal chest tubes with 100cc serosanguinous drainage overnight with a total of 150cc out. Left pleural chest tube with 100cc with a total of 200cc out. - Cardiovascular Details: S1, S2 present. Regular rate and rhythm, sinus rhythm on telemetry. Intermittent short bursts of A fib noted last night and this morning. Sternum stable. A/V epicardial pacemaker wires present and not connected to the generator. Palpable peripheral pulses bilaterally. + 2 generalized edema present. Right internal jugular [place], right radial arterial line present. Last CO/CI 5.5, CO/2.5 CI. Remains on small dose IV phenylephrine, Primacor. Heart hugger in place with patient unable to use appropriately secondary to edema in his hands, antiembolism stockings, SCDs present. - Gastrointestinal Gastrointestinal Comment(s): Abdomen soft, non-tender, non-distended, obese. Active bowel sounds present x 4 quadrants. No nausea or vomiting. Positive flatus. - Genitourinary Genitourinary Comment(s): [place] catheter present and draining clear, michaela urine. 1400ml output throughout the night. - Integumentary Integumentary Comment(s): Skin is warm and dry. Anterior chest incision well approximated covered with dry intact dressing. Left radial artery harvest site well approximated, good cap refill, pt denies numbness/tingling, able to move fingers. Left lower extremity EVH site well approximated - Neurologic Neurologic Comment(s): Patient alert and oriented x 3. CNII-XII grossly intact - Musculoskeletal Musculoskeletal: Present: generalized weakness, strength equal bilaterally - Psychiatric Psychiatric Comment(s): Appropriate affect, intact judgment & insight - Allied health notes Allied health notes reviewed: nursing - Labs CBC & Chem 7: 09/16/19 06:00 09/16/19 06:00 Labs: Abnormal Lab Results - Last 24 Hours (Table) 09/15/19 09/15/19 09/15/19 Range/Units 08:05 08:11 09:03 WBC (3.8-10.6) k/uL RBC (4.30-5.90) m/uL Hgb (13.0-17.5) gm/dL Hct (39.0-53.0) % RDW (11.5-15.5) % Plt Count (150-450) k/uL ABG pCO2 47 H (35-45) mmHg ABG HCO3 31 H (21-25) mmol/L ABG Total CO2 32 H (19-24) mmol/L ABG O2 Saturation 98.2 H (94-97) % Carbon Dioxide (22-30) mmol/L BUN (9-20) mg/dL POC Glucose (mg/dL) 119 H 121 H (75-99) mg/dL Calcium (8.4-10.2) mg/dL Ionized Calcium [place] (4.5-5.3) mg/dL Magnesium (1.6-2.3) mg/dL AST (17-59) U/L ALT (21-72) U/L Alkaline Phosphatase (38-126) U/L Total Protein (6.3-8.2) g/dL Albumin (3.5-5.0) g/dL 09/15/19 09/15/19 09/15/19 Range/Units 09:57 10:59 11:56 WBC (3.8-10.6) k/uL RBC (4.30-5.90) m/uL Hgb (13.0-17.5) gm/dL Hct (39.0-53.0) % RDW (11.5-15.5) % Plt Count (150-450) k/uL ABG pCO2 (35-45) mmHg ABG HCO3 (21-25) mmol/L ABG Total CO2 (19-24) mmol/L ABG O2 Saturation (94-97) % Carbon Dioxide (22-30) mmol/L BUN (9-20) mg/dL POC Glucose (mg/dL) 111 H 121 H 140 H (75-99) mg/dL Calcium (8.4-10.2) mg/dL Ionized Calcium [place] (4.5-5.3) mg/dL Magnesium (1.6-2.3) mg/dL AST (17-59) U/L ALT (21-72) U/L Alkaline Phosphatase (38-126) U/L Total Protein (6.3-8.2) g/dL Albumin (3.5-5.0) g/dL 09/15/19 09/15/19 09/15/19 Range/Units 13:08 14:11 14:57 WBC (3.8-10.6) k/uL RBC (4.30-5.90) m/uL Hgb (13.0-17.5) gm/dL Hct (39.0-53.0) % RDW (11.5-15.5) % Plt Count (150-450) k/uL ABG pCO2 (35-45) mmHg ABG HCO3 (21-25) mmol/L ABG Total CO2 (19-24) mmol/L ABG O2 Saturation (94-97) % Carbon Dioxide (22-30) mmol/L BUN (9-20) mg/dL POC Glucose (mg/dL) 133 H 132 H 144 H (75-99) mg/dL Calcium (8.4-10.2) mg/dL Ionized Calcium [place] (4.5-5.3) mg/dL Magnesium (1.6-2.3) mg/dL AST (17-59) U/L ALT (21-72) U/L Alkaline Phosphatase (38-126) U/L Total Protein (6.3-8.2) g/dL Albumin (3.5-5.0) g/dL 09/15/19 09/15/19 09/15/19 Range/Units 16:28 17:21 18:01 WBC (3.8-10.6) k/uL RBC (4.30-5.90) m/uL Hgb (13.0-17.5) gm/dL Hct (39.0-53.0) % RDW (11.5-15.5) % Plt Count (150-450) k/uL ABG pCO2 (35-45) mmHg ABG HCO3 (21-25) mmol/L ABG Total CO2 (19-24) mmol/L ABG O2 Saturation (94-97) % Carbon Dioxide (22-30) mmol/L BUN (9-20) mg/dL POC Glucose (mg/dL) 128 H 151 H 146 H (75-99) mg/dL Calcium (8.4-10.2) mg/dL Ionized Calcium [place] (4.5-5.3) mg/dL Magnesium (1.6-2.3) mg/dL AST (17-59) U/L ALT (21-72) U/L Alkaline Phosphatase (38-126) U/L Total Protein (6.3-8.2) g/dL Albumin (3.5-5.0) g/dL 09/15/19 09/15/19 09/15/19 Range/Units 19:00 20:11 22:04 WBC (3.8-10.6) k/uL RBC (4.30-5.90) m/uL Hgb (13.0-17.5) gm/dL Hct (39.0-53.0) % RDW (11.5-15.5) % Plt Count (150-450) k/uL ABG pCO2 (35-45) mmHg ABG HCO3 (21-25) mmol/L ABG Total CO2 (19-24) mmol/L ABG O2 Saturation (94-97) % Carbon Dioxide (22-30) mmol/L BUN (9-20) mg/dL POC Glucose (mg/dL) 147 H 118 H 126 H (75-99) mg/dL Calcium (8.4-10.2) mg/dL Ionized Calcium [place] (4.5-5.3) mg/dL Magnesium (1.6-2.3) mg/dL AST (17-59) U/L ALT (21-72) U/L Alkaline Phosphatase (38-126) U/L Total Protein (6.3-8.2) g/dL Albumin (3.5-5.0) g/dL 09/15/19 09/16/19 09/16/19 Range/Units 23:05 00:12 01:54 WBC (3.8-10.6) k/uL RBC (4.30-5.90) m/uL Hgb (13.0-17.5) gm/dL Hct (39.0-53.0) % RDW (11.5-15.5) % Plt Count (150-450) k/uL ABG pCO2 (35-45) mmHg ABG HCO3 (21-25) mmol/L ABG Total CO2 (19-24) mmol/L ABG O2 Saturation (94-97) % Carbon Dioxide (22-30) mmol/L BUN (9-20) mg/dL POC Glucose (mg/dL) 147 H 151 H 142 H (75-99) mg/dL Calcium (8.4-10.2) mg/dL Ionized Calcium [place] (4.5-5.3) mg/dL Magnesium (1.6-2.3) mg/dL AST (17-59) U/L ALT (21-72) U/L Alkaline Phosphatase (38-126) U/L Total Protein (6.3-8.2) g/dL Albumin (3.5-5.0) g/dL 09/16/19 09/16/19 09/16/19 Range/Units 03:28 04:42 06:00 WBC 19.0 H (3.8-10.6) k/uL RBC 2.46 L (4.30-5.90) m/uL Hgb 7.7 L (13.0-17.5) gm/dL Hct 23.1 L (39.0-53.0) % RDW 16.5 H (11.5-15.5) % Plt Count 81 L (150-450) k/uL ABG pCO2 (35-45) mmHg ABG HCO3 (21-25) mmol/L ABG Total CO2 (19-24) mmol/L ABG O2 Saturation (94-97) % Carbon Dioxide (22-30) mmol/L BUN (9-20) mg/dL POC Glucose (mg/dL) 125 H 133 H (75-99) mg/dL Calcium (8.4-10.2) mg/dL Ionized Calcium [place] (4.5-5.3) mg/dL Magnesium (1.6-2.3) mg/dL AST (17-59) U/L ALT (21-72) U/L Alkaline Phosphatase (38-126) U/L Total Protein (6.3-8.2) g/dL Albumin (3.5-5.0) g/dL 09/16/19 Range/Units 06:00 WBC (3.8-10.6) k/uL RBC (4.30-5.90) m/uL Hgb (13.0-17.5) gm/dL Hct (39.0-53.0) % RDW (11.5-15.5) % Plt Count (150-450) k/uL ABG pCO2 (35-45) mmHg ABG HCO3 (21-25) mmol/L ABG Total CO2 (19-24) mmol/L ABG O2 Saturation (94-97) % Carbon Dioxide 33 H (22-30) mmol/L BUN 31 H (9-20) mg/dL POC Glucose (mg/dL) (75-99) mg/dL Calcium 7.7 L (8.4-10.2) mg/dL Ionized Calcium [place] 4.4 L (4.5-5.3) mg/dL Magnesium 2.4 H (1.6-2.3) mg/dL AST 143 H (17-59) U/L ALT 324 H (21-72) U/L Alkaline Phosphatase 143 H (38-126) U/L Total Protein 4.8 L (6.3-8.2) g/dL Albumin 2.7 L (3.5-5.0) g/dL Microbiology - Last 24 Hours (Table) 09/14/19 00:17 Gram Stain - Preliminary Sputum Sputum Culture - Preliminary 09/14/19 07:05 Urine Culture - Final Urine,Voided 09/14/19 07:05 Blood Culture - Preliminary Blood No Growth after 24 hours - Imaging and Cardiology Chest x-ray: report reviewed, image reviewed Assessment and Plan Assessment: 1. Triple-vessel calcified coronary artery disease, NSTEMI in this admission, status post urgent two-vessel bypass 2. Severe aortic valve stenosis, status post bioprosthetic aortic valve replacement 3. Mild to moderate tricuspid valve regurgitation 4. Hypertension 5. Hyperlipidemia 6. History of ITP status post splenectomy 7. Type 2 diabetes mellitus, hemoglobin A1c 6.6% 8. Obesity 9. Previous tobacco dependence, moderate COPD with FEV1 54% of predicted 10. Postoperative lactic acidosis with metabolic acidosis, resolving 11. Postoperative thrombocytopenia, resolving 12. Postoperative hypotension, resolving 13. Postoperative hypernatremia, resolved 14. Postoperative acute blood loss anemia with postoperative bleeding, status post reoperation with sternal exploration and evacuation of clots 15. Postoperative transaminitis 16. Postoperative prolonged mechanical ventilation 17. Postoperative atrial fibrillation, currently in normal sinus rhythm Plan: 1. Optimize medical management with full strength aspirin, plavix, statin and beta robin. Will increase beta robin as able. 2. Continue oral amiodarone. Start Cardizem PO 30mg every 8 hours for radial artery prophylaxis. No anticoagulation unless afib >24 hours. 3. Wean oxygen as tolerated. Encourage incentive spirometry as tolerated. Bronchodilators per pulmonology, no steroid based inhaler per pulmonary 4. Discontinue primacor 30 minutes after PO Cardizem. Discontinue phenylephrine as tolerated 5. Increase activity as tolerated, out of bed to chair. PT/OT/cardiac rehab following 6. Will monitor daily x-rays and labs. Electrolyte replacement per protocol. Calcium Gluconate 1mg IV x 1 today. 7. Insulin management per primary care service 8. Pain control per current medication regimen 9. GI/DVT prophylaxis. Continue Arixtra 10. Keep [place] catheter for strict accurate intake and output. Will give 20 mg IV Lasix today 11. Keep mediastinal, pleural chest tubes for another 24 hours. 12. Discontinue swan-shira today. 13. More recommendations to follow based on patient's clinical course. Time with Patient: Greater than 30
[2019-09-16] MEDS: AMIODARONE 200 MG TAB PO SCH ×2 (08:50→20:52)
[2019-09-16] MEDS: PANTOPRAZOLE 40 MG TABLET PO SCH (08:50)
[2019-09-16] MEDS: DILTIAZEM ORAL 30 MG TAB PO SCH ×3 (08:50→23:55)
[2019-09-16] MEDS: METOPROLOL TARTRATE 12.5 MG TAB PO SCH ×2 (08:51→20:52)
[2019-09-16] MEDS: FONDAPARINUX 2.5 MG/0.5 ML SYRINGE SQ SCH (08:51)
[2019-09-16] MEDS: ASPIRIN 325 MG TAB PO SCH (08:51)
[2019-09-16] MEDS: CLOPIDOGREL 75 MG TAB PO SCH (08:51)
[2019-09-16 09:31] LABS: Glucose,Whole Blood 159 mg/dL (75-99)
[2019-09-16] MEDS: INSULIN REGULAR 100 UNIT in SODIUM CHLORIDE 0.9% 100 ML IV SCH (09:34)
[2019-09-16 11:12] LABS: Glucose,Whole Blood 149 mg/dL (75-99)
[2019-09-16 12:19] LABS: Glucose,Whole Blood 141 mg/dL (75-99)
[2019-09-16 14:36] LABS: Glucose,Whole Blood 132 mg/dL (75-99)
[2019-09-16] MEDS: KETOROLAC 30 MG/ML 1 ML VIAL IVP SCH ×2 (14:47→20:52)
[2019-09-16] MEDS: CLEVIDIPINE BUTYRATE 25 MG in EMPTY BAG 1 BAG IV SCH (16:15)
--- NOTE | 2019-09-16 16:35 | P.PN ---
Subjective Progress Note Date: 09/16/19 Principal diagnosis: 69-year-old male with a past medical history of coronary artery disease status post CABG, aortic stenosis, type 2 diabetes mellitus, hyperlipidemia, obstructive sleep apnea on CPAP coming to the hospital with a chief complaint of syncope. Patient states for the past 1-2 months he has been having dizziness and feels lightheaded. Yesterday he felt dizzy and passed out for almost 5-10 minutes. Patient denies having any loss of bowel or bladder control. No tongue bites. He denies having any chest pain or palpitations. Patient states that he gets short of breath on taking a flight of stairs in the recent months. Patient has, motor that is consistent with severe aortic stenosis, he states that he has this murmur for a long period of time. Patient denies having any fevers chills or rigors. No cough or difficulty in breathing. No dysuria or hematuria. No alcohol pain nausea vomiting or diarrhea. No weakness of his extremities. No headaches or blurring of vision. No speech abnormalities. In the emergency room patient had a CT of the head that was showing no acute intracranial process. He also had a chest x-ray that is within normal limits and an EKG showing normal sinus rhythm. There is mild elevation of troponins at 0.047. The patient has been admitted for further management. On 09/08/2019 - patient is sitting up in a chair by the bedside comfortably. He had an episode of dizziness this morning when he tried to get from the room to his bathroom. He did not have a fall. His headaches are much better. He denies having any chest pain. Mild shortness of breath. No cough. He denies having any fevers chills or rigors. No lower extremity swelling. Patient denies having any abdominal pain. Denies noticing any bleeding from any site. Patient's vitals have been stable. No acute events reported by nursing staff. Patient had an echocardiogram done this morning showing severe aortic stenosis. 09/09/2019 Patient will undergo cardiac catheterization and DAMARI today. Further management and plan depending on the DAMARI results of recent cardiac catheterization findings. Patient is complaining of mild lightheadedness no other significant symptoms at this time 09/10/2019 Patient is clinically doing well is found that there was a disease patient is being evaluated for CABG and aortic valve replacement. Patient is alert and oriented 3 to me but patient apparently was having some hallucinations which I believe secondary to benzodiazepines which were discontinued and Dilaudid will be discontinued and patient will need some nonpharmacological measures including ambulating the hallways will open of the windows and I believe this is secondary to owners and due to prolonged hospitalization 09/13/2019 Patient underwent coronary artery bypass grafting yesterday along with Arctic valve replacement patient the head bleeding and operative site area retro- cardiac bleeding for which patient has to borrow to go to or again for extubation and evacuation of clots patient received multiple blood product transfusion including PRBC transfusion. Patient is prior presently on multiple pressors including norepinephrine and vasopressin and Fco-Synephrine. Patient is also on milrinone and is receiving metoprolol as well. Patient is on patient is presently intubated sedated FiO2 of around 35% area patient is on D5W because of hypernatremia 09/14/2019 No overnight events patient is clinically doing better than yesterday patient is only and Fco-Synephrine now , Levothroid and vasopressin were discontinued and patient is on milrinone and IV insulin. Patient still has the chest tube patient is off sedation doing well and minimal vent settings 6 of PEEP of 10. Patient probably will be extubated today. Review of systems: Unable to obtain due to his clinical condition All inpatient medications were reviewed and appropriate changes in these medications as dictated in the interval history and assessment and plan. 09/15/2019 Patient is sitting up in bed in no acute distress . Patient is lethargic but easily arousable. Patient is currently being closely monitored in the ICU. Patient was extubated yesterday and is currently on milrinone, phenylephrine, amiodarone, and insulin drips. Yesterday patient had a brief period of atrial fibrillation and was placed on an amiodarone drip and is currently normal sinus at this time. Patient will likely be transitioned to oral amiodarone. Patient continues to have generalized edema noted to the upper and lower extremities and has been given IV Lasix. Patient's urine output has increased. Patient currently denies any chest pain or palpitations. Patient states that he does have some shortness of breath but has improved since yesterday. Patient also has a cough that is causing some chest discomfort with some phlegm production but has been unable to expectorate. Encouraged coughing and deep breathing along with incentive spirometer use at least 10 times every hour while awake. Patient currently remains on an insulin drip for tight glycemic control and will continue at this time until patient is eating. Patient was requesting PT/OT. Will continue to monitor closely. 09/16/2019 Patient is sitting up in the bed in no acute distress. Family is at the bedside. Patient is currently being monitored closely in the ICU. Multiple medical consultations are following closely. Patient continues to be on milrinone. Patient is being transitioned to oral amiodarone along with Cardizem for atrial fibrillation. Patient was started on a diet and insulin drip has been discontinued. Patient will continue with sliding scale. [place] Hakeem ca theter is being removed today and will continue with chest tubes at this time. Patient states that his shortness of breath has slightly improved and has a strong productive cough. Patient continues to have upper and lower extremity swelling and has a hard time using the Heart hugger due to the bilateral hand edema. Patient was given a dose of IV Lasix and is diuresing well. Will continue to monitor closely. Objective - Vital Signs Vital signs: Vital Signs Temp 97.9 F 09/16/19 16:00 Pulse 85 09/16/19 16:00 Resp 16 09/16/19 16:00 BP 87/58 09/16/19 07:00 Pulse Ox 95 09/16/19 16:00 Intake & Output 09/15/19 09/16/19 09/16/19 18:59 06:59 18:59 Intake Total 288.117 1441.208 563.868 Output Total 1265 1810 1230 Balance -631.208 -786.792 -666.132 Weight 121.2 kg 121.2 kg Intake: IV 578 379 425 Calcium Gluconate 1 gm In 100 Sodium Chloride 0.9% 100 ml @ 100 mls/hr IVPB ONCE ONE Rx#:[id number] Dextrose 5% in Water 1, 380 220 200 000 ml @ 20 mls/hr IV . Q24H [facility] [place] Rx#:[id number] Pressure bag 108 99 75 co/ci 90 60 50 Intake, IV Titration 55.792 44.208 138.868 Amount Insulin Regular 100 unit 55.792 44.208 46.034 In Sodium Chloride 0.9% 100 ml @ Titrate IV .Q0M [facility] Rx#:[id number] Milrinone-D5w Pmx 20 mg 92.834 In Dextrose/Water 1 100ml .bag @ 0.125 MCG/KG/MIN 4 .013 mls/hr IV .Q24H [facility] [place] Rx#:[id number] Oral 600 Output: Chest Tube Drainage 200 200 Bilateral Mediastinal 70 80 left pleural 130 120 Urine 1065 1810 1030 Other: Voiding Method Indwelling Catheter Indwelling Catheter Indwelling Catheter # Voids 1 # Bowel Movements 1 ABP, PAP, CO, CI - Last Documented Arterial Blood Pressure 104/51 Pulmonary Artery Pressure 41/24 Cardiac Output 5.5 Cardiac Index 2.5 - Exam GENERAL: Patient is sitting up in bed lethargic but easily arousable in no acute distress. HEENT: Pupils are round and equally reacting to light. EOMI. No scleral icterus. No conjunctival pallor. Normocephalic, atraumatic. No pharyngeal erythema. No thyromegaly. CARDIOVASCULAR: S1 and S2 present. No rubs, or gallops. systolic murmur PULMONARY: Diminished breath sounds at the bases with a few scattered crackles noted. Patient has 2 mediastinal and left pleural chest tubes, [place]-Hakeem was removed today ABDOMEN: Soft, obese, nontender, nondistended, hypoactive bowel sounds. No palpable organomegaly. MUSCULOSKELETAL: No joint swelling or deformity. EXTREMITIES: No cyanosis, clubbing, or pedal edema. Generalized edema noted to bilateral upper and lower extremities with 2+ pitting edema in the hands NEUROLOGICAL: Moving all 4 limbs, off sedation SKIN: No rashes. - Labs CBC & Chem 7: 09/16/19 06:00 09/16/19 06:00 Labs: Abnormal Lab Results - Last 24 Hours (Table) 09/15/19 09/15/19 09/15/19 Range/Units 16:28 17:21 18:01 WBC (3.8-10.6) k/uL RBC (4.30-5.90) m/uL Hgb (13.0-17.5) gm/dL Hct (39.0-53.0) % RDW (11.5-15.5) % Plt Count (150-450) k/uL Neutrophils # (Manual) (1.3-7.7) k/uL Monocytes # (Manual) (0-1.0) k/uL Metamyelocytes # (Man) (0) k/uL Myelocytes # (Manual) (0) k/uL Nucleated RBCs (0-0) /100 WBC Carbon Dioxide (22-30) mmol/L BUN (9-20) mg/dL POC Glucose (mg/dL) 128 H 151 H 146 H (75-99) mg/dL Calcium (8.4-10.2) mg/dL Ionized Calcium [place] (4.5-5.3) mg/dL Magnesium (1.6-2.3) mg/dL AST (17-59) U/L ALT (21-72) U/L Alkaline Phosphatase (38-126) U/L Total Protein (6.3-8.2) g/dL Albumin (3.5-5.0) g/dL 09/15/19 09/15/19 09/15/19 Range/Units 19:00 20:11 22:04 WBC (3.8-10.6) k/uL RBC (4.30-5.90) m/uL Hgb (13.0-17.5) gm/dL Hct (39.0-53.0) % RDW (11.5-15.5) % Plt Count (150-450) k/uL Neutrophils # (Manual) (1.3-7.7) k/uL Monocytes # (Manual) (0-1.0) k/uL Metamyelocytes # (Man) (0) k/uL Myelocytes # (Manual) (0) k/uL Nucleated RBCs (0-0) /100 WBC Carbon Dioxide (22-30) mmol/L BUN (9-20) mg/dL POC Glucose (mg/dL) 147 H 118 H 126 H (75-99) mg/dL Calcium (8.4-10.2) mg/dL Ionized Calcium [place] (4.5-5.3) mg/dL Magnesium (1.6-2.3) mg/dL AST (17-59) U/L ALT (21-72) U/L Alkaline Phosphatase (38-126) U/L Total Protein (6.3-8.2) g/dL Albumin (3.5-5.0) g/dL 09/15/19 09/16/19 09/16/19 Range/Units 23:05 00:12 01:54 WBC (3.8-10.6) k/uL RBC (4.30-5.90) m/uL Hgb (13.0-17.5) gm/dL Hct (39.0-53.0) % RDW (11.5-15.5) % Plt Count (150-450) k/uL Neutrophils # (Manual) (1.3-7.7) k/uL Monocytes # (Manual) (0-1.0) k/uL Metamyelocytes # (Man) (0) k/uL Myelocytes # (Manual) (0) k/uL Nucleated RBCs (0-0) /100 WBC Carbon Dioxide (22-30) mmol/L BUN (9-20) mg/dL POC Glucose (mg/dL) 147 H 151 H 142 H (75-99) mg/dL Calcium (8.4-10.2) mg/dL Ionized Calcium [place] (4.5-5.3) mg/dL Magnesium (1.6-2.3) mg/dL AST (17-59) U/L ALT (21-72) U/L Alkaline Phosphatase (38-126) U/L Total Protein (6.3-8.2) g/dL Albumin (3.5-5.0) g/dL 09/16/19 09/16/19 09/16/19 Range/Units 03:28 04:42 06:00 WBC 16.8 H (3.8-10.6) k/uL RBC 2.46 L (4.30-5.90) m/uL Hgb 7.7 L (13.0-17.5) gm/dL Hct 23.1 L (39.0-53.0) % RDW 16.5 H (11.5-15.5) % Plt Count 81 L (150-450) k/uL Neutrophils # (Manual) 11.90 H (1.3-7.7) k/uL Monocytes # (Manual) 1.18 H (0-1.0) k/uL Metamyelocytes # (Man) 0.17 H (0) k/uL Myelocytes # (Manual) 0.17 H (0) k/uL Nucleated RBCs 13 H (0-0) /100 WBC Carbon Dioxide (22-30) mmol/L BUN (9-20) mg/dL POC Glucose (mg/dL) 125 H 133 H (75-99) mg/dL Calcium (8.4-10.2) mg/dL Ionized Calcium [place] (4.5-5.3) mg/dL Magnesium (1.6-2.3) mg/dL AST (17-59) U/L ALT (21-72) U/L Alkaline Phosphatase (38-126) U/L Total Protein (6.3-8.2) g/dL Albumin (3.5-5.0) g/dL 09/16/19 09/16/19 09/16/19 Range/Units 06:00 09:30 10:52 WBC (3.8-10.6) k/uL RBC (4.30-5.90) m/uL Hgb (13.0-17.5) gm/dL Hct (39.0-53.0) % RDW (11.5-15.5) % Plt Count (150-450) k/uL Neutrophils # (Manual) (1.3-7.7) k/uL Monocytes # (Manual) (0-1.0) k/uL Metamyelocytes # (Man) (0) k/uL Myelocytes # (Manual) (0) k/uL Nucleated RBCs (0-0) /100 WBC Carbon Dioxide 33 H (22-30) mmol/L BUN 31 H (9-20) mg/dL POC Glucose (mg/dL) 159 H 149 H (75-99) mg/dL Calcium 7.7 L (8.4-10.2) mg/dL Ionized Calcium [place] 4.4 L (4.5-5.3) mg/dL Magnesium 2.4 H (1.6-2.3) mg/dL AST 143 H (17-59) U/L ALT 324 H (21-72) U/L Alkaline Phosphatase 143 H (38-126) U/L Total Protein 4.8 L (6.3-8.2) g/dL Albumin 2.7 L (3.5-5.0) g/dL 09/16/19 09/16/19 Range/Units 12:01 14:16 WBC (3.8-10.6) k/uL RBC (4.30-5.90) m/uL Hgb (13.0-17.5) gm/dL Hct (39.0-53.0) % RDW (11.5-15.5) % Plt Count (150-450) k/uL Neutrophils # (Manual) (1.3-7.7) k/uL Monocytes # (Manual) (0-1.0) k/uL Metamyelocytes # (Man) (0) k/uL Myelocytes # (Manual) (0) k/uL Nucleated RBCs (0-0) /100 WBC Carbon Dioxide (22-30) mmol/L BUN (9-20) mg/dL POC Glucose (mg/dL) 141 H 132 H (75-99) mg/dL Calcium (8.4-10.2) mg/dL Ionized Calcium [place] (4.5-5.3) mg/dL Magnesium (1.6-2.3) mg/dL AST (17-59) U/L ALT (21-72) U/L Alkaline Phosphatase (38-126) U/L Total Protein (6.3-8.2) g/dL Albumin (3.5-5.0) g/dL Microbiology - Last 24 Hours (Table) 09/14/19 07:05 Blood Culture - Preliminary Blood No Growth after 48 hours 09/14/19 00:17 Gram Stain - Final Sputum Sputum Culture - Final 09/14/19 07:05 Urine Culture - Final Urine,Voided Assessment and Plan Assessment: -Triple vessel coronary artery disease with a non-ST elevation myocardial infarction on admission status post CABG. -severe aortic stenosis status post bioprosthetic valve replacement. -Mild to moderate tricuspid regurgitation -Postoperative bleeding status post exploration and evacuation of blood clots -Respiratory failure postoperatively patient is off ventilatory support at this time and on 4 L via nasal cannula -Hyponatremia because of multiple IV fluid transfusion as patient is on D5w at this time. -Postoperative shock probably hypovolemic patient was on multiple pressors as mentioned above and has received multiple units of blood transfusions -non-ST elevation myocardial infarction with triple vessel disease -Type 2 diabetes mellitus -Hypertension -Hyperlipidemia -Obstructive sleep apnea
[2019-09-16 17:07] LABS: Glucose,Whole Blood 118 mg/dL (75-99)
[2019-09-16] MEDS: INSULIN ASPART (NovoLOG) 100 UNIT/ML VIAL SQ SCH ×2 (18:30→21:02)
[2019-09-16] MEDS: ASCORBIC ACID 500 MG TAB PO SCH (18:32)
[2019-09-16] MEDS: FERROUS SULFATE 325 MG TAB PO SCH (18:32)
[2019-09-16] MEDS: SENNOSIDES-DOCUSATE SODIUM 1 EACH TAB PO SCH (20:51)
[2019-09-16] MEDS: ATORVASTATIN 40 MG TAB PO SCH (20:52)
[2019-09-16] MEDS: DEXTROSE 5% IN WATER 1,000 ML IV SCH (20:53)
[2019-09-16 21:05] LABS: Glucose,Whole Blood 148 mg/dL (75-99)
[2019-09-17 02:18] LABS: Glucose,Whole Blood 135 mg/dL (75-99)
[2019-09-17] MEDS: INSULIN ASPART (NovoLOG) 100 UNIT/ML VIAL SQ SCH ×5 (02:22→20:55)
[2019-09-17] MEDS: KETOROLAC 30 MG/ML 1 ML VIAL IVP SCH ×4 (02:40→20:54)
[2019-09-17 05:13] LABS: Ionized Calcium 4.6 mg/dL (4.5-5.3)
[2019-09-17 05:26] LABS: ALT 252 U/L (21-72); AST 77 U/L (17-59); African American GFR (CKD) >90 (>60 ml/min/1.73 sqM); Albumin 2.8 g/dL (3.5-5.0); Alkaline Phosphatase 208 U/L (38-126); Anion Gap 2 mmol/L; Blood Urea Nitrogen 43 mg/dL (9-20); Calcium 7.7 mg/dL (8.4-10.2); Carbon Dioxide 31 mmol/L (22-30); Chloride 103 mmol/L (98-107); Glucose 136 mg/dL (74-99); Magnesium 2.4 mg/dL (1.6-2.3); Non-African American GFR(CKD) 83 (>60 ml/min/1.73 sqM); Potassium 4.7 mmol/L (3.5-5.1); Sodium 136 mmol/L (137-145); Total Bilirubin 0.9 mg/dL (0.2-1.3)
--- NOTE | 2019-09-17 06:35 | XR ---
EXAMINATION TYPE: XR chest 1V portable DATE OF EXAM: 09/17/2019 CLINICAL HISTORY: Difficulty breathing progress study. Postoperative cardiac surgery. TECHNIQUE: Single AP portable upright view of the chest is obtained. COMPARISON: Chest x-ray from one day earlier and older studies. CTA chest September 11, 2019. FINDINGS: Persistent lateral left apical chest tube. Mediastinal drainage catheter is felt stable. I nterval removal of right internal jugular [place]-Hakeem catheter with persistent cordis sheath. Overlying sternal wires are redemonstrated. There is cardiomegaly with central vascular congestion and bibasilar opacities. No pleural effusion or pneumothorax is noted. Osseous structures are intact. IMPRESSION: Cardiomegaly and central vascular congestion with patchy bibasilar atelectasis and/or inf iltrate are all redemonstrated. No significant interval change.
[2019-09-17 06:36] LABS: Anisocytosis Slight; HCT 24.8 % (39.0-53.0); HGB 8.2 gm/dL (13.0-17.5); Hypochromasia Slight; MCH 31.3 pg (25.0-35.0); MCHC 32.9 g/dL (31.0-37.0); MCV 95.2 fL (80.0-100.0); Mean Platelet Volume 10.4; Platelet Count 108 k/uL (150-450); RBC 2.61 m/uL (4.30-5.90)
[2019-09-17 06:58] LABS: Glucose,Whole Blood 140 mg/dL (75-99)
[2019-09-17] MEDS: PANTOPRAZOLE 40 MG TABLET PO SCH (07:03)
[2019-09-17] MEDS: ASCORBIC ACID 500 MG TAB PO SCH ×2 (07:03→16:48)
[2019-09-17] MEDS: FERROUS SULFATE 325 MG TAB PO SCH ×2 (07:03→16:48)
--- NOTE | 2019-09-17 07:44 | PN ---
PROGRESS NOTE Mr. Nelson is a 69-year-old male who underwent redo coronary artery bypass grafting with bypass to the circumflex and the right coronary artery and aortic valve replacement. He is feeling better today. He remains tired but overall better. He has chest soreness. He has mild dyspnea. No dizziness. He is in sinus mechanism. His urine output has been stable. He continued to be on amiodarone 40 mg twice a day, aspirin once a day, Lipitor 40 mg daily, Plavix 75 mg daily, diltiazem 30 mg q.8 hours, metoprolol tartrate 12.5 mg twice a day. PHYSICAL EXAMINATION: Blood pressure 101/50 with the heart rate in the 70s. LUNGS: With few crackles at the bases. HEART: Regular rate and rhythm. S1, S2. No S3. No rub appreciated. ABDOMEN: Soft, nontender. EXTREMITIES: With minimal edema. LAB DATA: Lab data revealed BUN and creatinine 43 and 0.94. Hemoglobin 8.2. Chest x-ray revealed mild congestion. IMPRESSION: 1. Status post aortic valve replacement with redo open heart with bypass to the left circumflex and the right coronary artery. 2. Postoperative bleeding requiring repeat surgical intervention, stabilizing. 3. Anemia, improved. 4. Thrombocytopenia, resolved. 5. Paroxysmal atrial fibrillation, remains in sinus mechanism. 6. History of diabetes. 7. History of chronic obstructive lung disease. RECOMMENDATION: From the cardiac standpoint, we will continue on the present therapy. Increase his activity gradually. Continue incentive spirometry. Depending on the trend of his blood pressure, his regimen will be adjusted. MMODL / IJN: [id number] /
[2019-09-17] MEDS: ASPIRIN 325 MG TAB PO SCH (08:29)
[2019-09-17] MEDS: DILTIAZEM ORAL 30 MG TAB PO SCH ×2 (08:29→15:13)
[2019-09-17] MEDS: AMIODARONE 200 MG TAB PO SCH ×2 (08:29→20:53)
[2019-09-17] MEDS: CLOPIDOGREL 75 MG TAB PO SCH (08:30)
[2019-09-17] MEDS: FONDAPARINUX 2.5 MG/0.5 ML SYRINGE SQ SCH (08:30)
[2019-09-17] MEDS: METOPROLOL TARTRATE 12.5 MG TAB PO SCH ×2 (08:31→20:53)
[2019-09-17] MEDS: IPRATROPIUM-ALBUTEROL 3 ML NEB INHALATION SCH ×4 (08:42→20:25)
--- NOTE | 2019-09-17 09:00 | P.PN ---
Subjective Progress Note Date: 09/17/19 Principal diagnosis: Severe aortic valve stenosis and triple-vessel calcified coronary artery disease. Past medical history significant for coronary artery disease, status post MID CAB in 1999 with his left internal mammary artery to left anterior descending coronary artery, known aortic valve stenosis, hypertension, hyperlipidemia, history of platelet disorder status post splenectomy, diabetes mellitus type 2, obesity and previous tobacco dependance. POD #5 Urgent median sternotomy with redo double coronary artery bypass grafting using the left radial artery from the aorta to the right coronary artery, reverse saphenous vein graft from the aorta to the obtuse marginal artery, aortic valve replacement using a 25 mm Inspiris pericardial bioprosthesis, endoscopic harvesting of the left radial artery, endoscopic harvesting of the left greater saphenous vein in the groin to above the ankle level, intraoperative graft flow measurements using the SP3H system, intraoperative transesophageal echocardiogram and epi-aortic scanning Postoperative prolonged mechanical ventilation secondary to re-operation and acidosis, unexpected Postoperative lactic acidosis with metabolic acidosis, unexpected Postoperative thrombocytopenia, expected Postoperative hypotension, unexpected Postoperative hypernatremia, unexpected Postoperative acute blood loss anemia, expected from hemodilution and cardiopulmonary bypass, with postoperative bleeding which was unexpected POD #4 re-operation, sternal exploration with evacuation of clots Postoperative transaminitis, somewhat expected due to hypotension Postoperative atrial fibrillation, unexpected but common occurance after open heart surgery The patient is currently sitting up in the chair in the intensive care unit eating his breakfast, no acute distress noted. Currently on 3L NC, SPO2 97%. States pain is mostly controlled with current pain regimen, does complain of some shortness of breath and weakness. States he feels "better today". Continues to make improvements clinically. Vital signs are stable. Generalized edema present. Mediastinal x 2 and left pleural chest tubes remain with decreasing output. Objective - Vital Signs Vital signs: Vital Signs Temp 97.7 F 09/17/19 08:00 Pulse 77 09/17/19 08:00 Resp 22 09/17/19 08:00 BP 97/55 09/16/19 17:00 Pulse Ox 96 09/17/19 08:00 Intake & Output 09/16/19 09/17/19 09/17/19 18:59 06:59 18:59 Intake Total 615.868 312 292 Output Total 1300 580 70 Balance -684.132 -268 222 Weight 121.2 kg 126.1 kg Intake: IV 477 312 52 Calcium Gluconate 1 gm In 100 Sodium Chloride 0.9% 100 ml @ 100 mls/hr IVPB ONCE ONE Rx#:[id number] Dextrose 5% in Water 1, 240 240 40 000 ml @ 20 mls/hr IV . Q24H [facility] Rx#:[id number] Pressure bag 87 72 12 co/ci 50 Intake, IV Titration 138.868 Amount Insulin Regular 100 unit 46.034 In Sodium Chloride 0.9% 100 ml @ Titrate IV .Q0M [facility] Rx#:[id number] Milrinone-D5w Pmx 20 mg 92.834 In Dextrose/Water 1 100ml .bag @ 0.125 MCG/KG/MIN 4 .013 mls/hr IV .Q24H [facility] Rx#:[id number] Oral 240 Output: Chest Tube Drainage 200 150 10 Bilateral Mediastinal 80 90 10 left pleural 120 60 0 Urine 1100 430 60 Other: Voiding Method Indwelling Catheter Indwelling Catheter ABP, PAP, CO, CI - Last Documented Arterial Blood Pressure 113/57 Pulmonary Artery Pressure 41/24 Cardiac Output 5.5 Cardiac Index 2.5 - Constitutional Constitutional Comment(s): Patient awake, calm, and cooperative. No distress noted, obese. - Respiratory Details: Lungs sound coarse throughout, crackles to bilateral bases. Respirations even, slightly labored, currently on 3L NC with a SPO2 97%. Only able to achieve 500 ml on incentive spirometer. Strong productive cough. Mediastinal chest tubes x 2 and 1 left pleural chest tube to -20cm H2O suction, no airleak noted. Mediastinal chest tubes with 70cc serosanguinous drainage overnight. Left p leural chest tube with 30cc serosanguinous drainage out overnight. - Cardiovascular Details: S1, S2 present. Regular rate and rhythm, sinus rhythm on telemetry. Sternum stable. A/V epicardial pacemaker wires present and not connected to the generator. Palpable peripheral pulses bilaterally. + 2 generalized edema present. Right internal jugular Cordis, right radial arterial line present. Heart hugger in place with patient unable to use appropriately secondary to edema in his hands, antiembolism stockings, SCDs present - Gastrointestinal Gastrointestinal Comment(s): Abdomen soft, non-tender, non-distended, obese. Active bowel sounds present x 4 quadrants. No nausea or vomiting. Positive flatus. - Genitourinary Genitourinary Comment(s): Richmond catheter present and draining clear, michaela urine. 570ml output throughout the night. - Integumentary Integumentary Comment(s): Skin is warm and dry. Anterior chest incision well approximated covered with dry intact dressing. Left radial artery harvest site well approximated, good cap refill, pt denies numbness/tingling, able to move fingers. Left lower extremity EVH site well approximated - Neurologic Neurologic Comment(s): Patient alert and oriented x 3. CNII-XII grossly intact - Musculoskeletal Musculoskeletal: Present: generalized weakness, strength equal bilaterally - Psychiatric Psychiatric: Present: A&O x's 3, appropriate affect, intact judgment & insight - Allied health notes Allied health notes reviewed: nursing - Labs CBC & Chem 7: 09/17/19 04:05 09/17/19 04:05 Labs: Abnormal Lab Results - Last 24 Hours (Table) 09/16/19 09/16/19 09/16/19 Range/Units 06:00 09:30 10:52 WBC 16.8 H (3.8-10.6) k/uL RBC (4.30-5.90) m/uL Hgb (13.0-17.5) gm/dL Hct (39.0-53.0) % RDW (11.5-15.5) % Plt Count (150-450) k/uL Neutrophils # (Manual) 11.90 H (1.3-7.7) k/uL Monocytes # (Manual) 1.18 H (0-1.0) k/uL Metamyelocytes # (Man) 0.17 H (0) k/uL Myelocytes # (Manual) 0.17 H (0) k/uL Nucleated RBCs 13 H (0-0) /100 WBC Sodium (137-145) mmol/L Carbon Dioxide (22-30) mmol/L BUN (9-20) mg/dL Glucose (74-99) mg/dL POC Glucose (mg/dL) 159 H 149 H (75-99) mg/dL Calcium (8.4-10.2) mg/dL Magnesium (1.6-2.3) mg/dL AST (17-59) U/L ALT (21-72) U/L Alkaline Phosphatase (38-126) U/L Total Protein (6.3-8.2) g/dL Albumin (3.5-5.0) g/dL 09/16/19 09/16/19 09/16/19 Range/Units 12:01 14:16 17:06 WBC (3.8-10.6) k/uL RBC (4.30-5.90) m/uL Hgb (13.0-17.5) gm/dL Hct (39.0-53.0) % RDW (11.5-15.5) % Plt Count (150-450) k/uL Neutrophils # (Manual) (1.3-7.7) k/uL Monocytes # (Manual) (0-1.0) k/uL Metamyelocytes # (Man) (0) k/uL Myelocytes # (Manual) (0) k/uL Nucleated RBCs (0-0) /100 WBC Sodium (137-145) mmol/L Carbon Dioxide (22-30) mmol/L BUN (9-20) mg/dL Glucose (74-99) mg/dL POC Glucose (mg/dL) 141 H 132 H 118 H (75-99) mg/dL Calcium (8.4-10.2) mg/dL Magnesium (1.6-2.3) mg/dL AST (17-59) U/L ALT (21-72) U/L Alkaline Phosphatase (38-126) U/L Total Protein (6.3-8.2) g/dL Albumin (3.5-5.0) g/dL 09/16/19 09/17/19 09/17/19 Range/Units 20:56 02:16 04:05 WBC 19.2 H (3.8-10.6) k/uL RBC 2.61 L (4.30-5.90) m/uL Hgb 8.2 L (13.0-17.5) gm/dL Hct 24.8 L (39.0-53.0) % RDW 16.0 H (11.5-15.5) % Plt Count 108 L (150-450) k/uL Neutrophils # (Manual) (1.3-7.7) k/uL Monocytes # (Manual) (0-1.0) k/uL Metamyelocytes # (Man) (0) k/uL Myelocytes # (Manual) (0) k/uL Nucleated RBCs (0-0) /100 WBC Sodium (137-145) mmol/L Carbon Dioxide (22-30) mmol/L BUN (9-20) mg/dL Glucose (74-99) mg/dL POC Glucose (mg/dL) 148 H 135 H (75-99) mg/dL Calcium (8.4-10.2) mg/dL Magnesium (1.6-2.3) mg/dL AST (17-59) U/L ALT (21-72) U/L Alkaline Phosphatase (38-126) U/L Total Protein (6.3-8.2) g/dL Albumin (3.5-5.0) g/dL 09/17/19 09/17/19 Range/Units 04:05 06:56 WBC (3.8-10.6) k/uL RBC (4.30-5.90) m/uL Hgb (13.0-17.5) gm/dL Hct (39.0-53.0) % RDW (11.5-15.5) % Plt Count (150-450) k/uL Neutrophils # (Manual) (1.3-7.7) k/uL Monocytes # (Manual) (0-1.0) k/uL Metamyelocytes # (Man) (0) k/uL Myelocytes # (Manual) (0) k/uL Nucleated RBCs (0-0) /100 WBC Sodium 136 L (137-145) mmol/L Carbon Dioxide 31 H (22-30) mmol/L BUN 43 H (9-20) mg/dL Glucose 136 H (74-99) mg/dL POC Glucose (mg/dL) 140 H (75-99) mg/dL Calcium 7.7 L (8.4-10.2) mg/dL Magnesium 2.4 H (1.6-2.3) mg/dL AST 77 H (17-59) U/L ALT 252 H (21-72) U/L Alkaline Phosphatase 208 H (38-126) U/L Total Protein 5.0 L (6.3-8.2) g/dL Albumin 2.8 L (3.5-5.0) g/dL Microbiology - Last 24 Hours (Table) 09/14/19 07:05 Blood Culture - Preliminary Blood No Growth after 48 hours 09/14/19 00:17 Gram Stain - Final Sputum Sputum Culture - Final - Imaging and Cardiology Chest x-ray: report reviewed, image reviewed Assessment and Plan Assessment: 1. Triple-vessel calcified coronary artery disease, NSTEMI in this admission, status post urgent two-vessel bypass 2. Severe aortic valve stenosis, status post bioprosthetic aortic valve replacement 3. Mild to moderate tricuspid valve regurgitation 4. Hypertension 5. Hyperlipidemia 6. History of ITP status post splenectomy 7. Type 2 diabetes mellitus, hemoglobin A1c 6.6% 8. Obesity 9. Previous tobacco dependence, moderate COPD with FEV1 54% of predicted 10. Postoperative lactic acidosis with metabolic acidosis, resolving 11. Postoperative thrombocytopenia, resolving 12. Postoperative hypotension, resolved 13. Postoperative hypernatremia, resolved 14. Postoperative acute blood loss anemia with postoperative bleeding, status post reoperation with sternal exploration and evacuation of clots 15. Postoperative transaminitis 16. Postoperative prolonged mechanical ventilation 17. Postoperative atrial fibrillation, currently in normal sinus rhythm Plan: 1. Optimize medical management with full strength aspirin, plavix, statin and beta robin. Will increase beta robin as able. 2. Continue oral amiodarone and Cardizem PO 30mg every 8 hours for radial artery prophylaxis. No anticoagulation unless afib >24 hours. 3. Wean oxygen as tolerated. Encourage incentive spirometry as tolerated. Bronchodilators per pulmonology, no steroid based inhaler per pulmonary 4. Discontinuation of cordis after lasix and diuresis. Discontinue arterial l ine 5. Increase activity as tolerated, out of bed to chair. PT/OT/cardiac rehab following 6. Will monitor daily x-rays and labs. Electrolyte replacement per protocol. Will give 1gm Calcium IV. 7. Insulin management per primary care service 8. Pain control per current medication regimen 9. GI/DVT prophylaxis. Continue Arixtra 10. Discontinue Richmond catheter after diuresis. Bladderscan every 6 hours, may straight cath for > 300 ml. 11. Discontinue of chest tubes today. 12. Discontinue epicardial pacemaker wires. Patient to remain bedrest for one hour post removal. 13. More recommendations to follow based on patient's clinical course. Time with Patient: Greater than 30
--- NOTE | 2019-09-17 09:23 | P.PN ---
Subjective Progress Note Date: 09/17/19 On today's evaluation of 09/15/2019 I'm seeing this patient for a follow-up. The patient is looking better. He is awake and alert. He is hemodynamically doing better. He is currently on milrinone at 0.125 g per KG per minute and his cardiac output is at X.7 with an index of 3.1. PA diastolic is 21 mm. CVP is around 14. The patient was given Lasix 40 mg and is producing excellent amount of urine output. Chest x-ray showing better pleural effusion. Nickerson-Hakeem catheter is in good location. Sternum stable clean and intact. He has a congested cough. Bringing up minimal amount of sputum. He is afebrile for now. Infection is doubtful. The patient has increased edema both in upper and lower extremities. Platelet count is stable at 49. Chest tubes are in place. No evidence of any air leak. No evidence of any significant bleeding from the chest tube sites. He is postop day #3. 09/16/2019 I'm seeing the patient for a follow-up. He is awake and alert. Hemodynamically he was taken off the Fco-Synephrine and he remains on a low dose milrinone 0.125 g per KG per minute. Most recent cardiac output is at 5.5 with an index of 2.5. Pulmonary artery pressures of 44/26. Chest x-ray from today showing bilateral pleural effusion and cardiomegaly and pulmonary vessel congestion. Is producing excellent urine output and his urine output was in order of 3 L yesterday and the neck fluid balance was -1.4 L. He is going to receive another 20 mg of IV Lasix. His cardiac rhythm is sinus however overnight he is going back and forth into atrial fibrillation. He is on oral amiodarone. He is going to be started on Cardizem also here chest tubes are in place. There is no evidence of air leak. Output is minimal. The patient is a mediastinal and left pleural chest tube. The edema is still present in all 4 extremities although it is improving. No fever. No chills. Is postop day #4. Platelet counts are improving and it up to 81 and the patient is currently on Arixtra. On 09/17/2019 the patient is sitting up on a chair and is calm and comfortable and hemodynamically stable. This morning he is on oxygen at 2 L per minute nasal cannula. Chest x-ray still showing evidence of cardiomegaly and bilateral pleural effusions. The Nickerson-Hakeem catheter was removed yesterday and the cordis is still in place. He was given a dose of Lasix yesterday. He remains in a negative fluid balance. He was supposed to get a second dose later on that afternoon, however he became slightly hypotensive and the second dose was not given. This morning his BP is 120/60 with a normal sinus rhythm in the mid 70s. He still has increased swelling in the upper and lower extremities. Output from the chest tube has been in the order of 70 mL from the mediastinal tubes and 30 mL from the left pleural chest tube and output was serosanguineous in nature without evidence of any air leak. Note that the patient has no evidence of pneumothorax on his chest x-ray. Otherwise, is looking well. No specific complaints. Is awake and alert. His white cell count is at 19.2 which is compatible compared to yesterday. Hemoglobin is at 8.2 and the plated count is gradually improving is up to 108. Renal function stable. Electrodes are all within normal limits. LFTs are slightly off. There is gradually improving and today descending trends. Objective - Vital Signs Vital signs: Vital Signs Temp 97.7 F 09/17/19 08:00 Pulse 76 09/17/19 08:53 Resp 22 09/17/19 08:00 BP 97/55 09/16/19 17:00 Pulse Ox 96 09/17/19 08:00 Intake & Output 09/16/19 09/17/19 09/17/19 18:59 06:59 18:59 Intake Total 615.868 312 292 Output Total 1300 580 70 Balance -684.132 -268 222 Weight 121.2 kg 126.1 kg Intake: IV 477 312 52 Calcium Gluconate 1 gm In 100 Sodium Chloride 0.9% 100 ml @ 100 mls/hr IVPB ONCE ONE Rx#:[id number] Dextrose 5% in Water 1, 240 240 40 000 ml @ 20 mls/hr IV . Q24H [facility] Rx#:[id number] Pressure bag 87 72 12 co/ci 50 Intake, IV Titration 138.868 Amount Insulin Regular 100 unit 46.034 In Sodium Chloride 0.9% 100 ml @ Titrate IV .Q0M [facility] Rx#:[id number] Milrinone-D5w Pmx 20 mg 92.834 In Dextrose/Water 1 100ml .bag @ 0.125 MCG/KG/MIN 4 .013 mls/hr IV .Q24H [facility] Rx#:[id number] Oral 240 Output: Chest Tube Drainage 200 150 10 Bilateral Mediastinal 80 90 10 left pleural 120 60 0 Urine 1100 430 60 Other: Voiding Method Indwelling Catheter Indwelling Catheter Indwelling Catheter ABP, PAP, CO, CI - Last Documented Arterial Blood Pressure 113/57 Pulmonary Artery Pressure 41/24 Cardiac Output 5.5 Cardiac Index 2.5 - Exam - Constitutional General appearance: Present: cooperative, no acute distress, obese - Respiratory Details: Lung sounds diminished bilaterally with crackles in the bases. Respirations even, non-labored. Currently on 2L NC with oxygen saturation 96%. Only able to achieve 750 mL on his incentive spirometry. Strong productive cough. Pleural chest tube has put out 70mL over the past 30 hours in the mediastinal chest tube was put out 70 mL. There is no evidence of any air leak. - Cardiovascular Details: S1, S2 present. Regular rate and rhythm, sinus rhythm on telemetry. Sternum stable. A/V epicardial pacemaker wires present, connected to generator, generator turned off. Heart hugger in place with patient unable to use appropriately secondary to edema in his hands, antiembolism stockings, SCDs present. - Gastrointestinal Gastrointestinal Comment(s): Abdomen soft, non-tender, non-distended, obese. Active bowel sounds present x 4 quadrants. Tolerating ice chips, clear liquids. Denies flatus, positive nausea. - Genitourinary Genitourinary Comment(s): Richmond present draining cloudy, yellow urine. Urine output 50 mL per hour overnight. - Integumentary Integumentary Comment(s): Skin is warm and dry. Anterior chest incision well approximated covered with dry intact dressing. Left radial artery harvest site well approximated, good ca p refill, pt denies numbness/tingling, able to move fingers. Left lower extremity EVH site well approximated - Neurologic Neurologic: Present: CNII-XII intact - Musculoskeletal Musculoskeletal: Present: generalized weakness, strength equal bilaterally - Psychiatric Psychiatric: Present: A&O x's 3, appropriate affect, intact judgment & insight - Labs CBC & Chem 7: 09/17/19 04:05 09/17/19 04:05 Labs: Abnormal Lab Results - Last 24 Hours (Table) 09/16/19 09/16/19 09/16/19 Range/Units 09:30 10:52 12:01 WBC (3.8-10.6) k/uL RBC (4.30-5.90) m/uL Hgb (13.0-17.5) gm/dL Hct (39.0-53.0) % RDW (11.5-15.5) % Plt Count (150-450) k/uL Sodium (137-145) mmol/L Carbon Dioxide (22-30) mmol/L BUN (9-20) mg/dL Glucose (74-99) mg/dL POC Glucose (mg/dL) 159 H 149 H 141 H (75-99) mg/dL Calcium (8.4-10.2) mg/dL Magnesium (1.6-2.3) mg/dL AST (17-59) U/L ALT (21-72) U/L Alkaline Phosphatase (38-126) U/L Total Protein (6.3-8.2) g/dL Albumin (3.5-5.0) g/dL 09/16/19 09/16/19 09/16/19 Range/Units 14:16 17:06 20:56 WBC (3.8-10.6) k/uL RBC (4.30-5.90) m/uL Hgb (13.0-17.5) gm/dL Hct (39.0-53.0) % RDW (11.5-15.5) % Plt Count (150-450) k/uL Sodium (137-145) mmol/L Carbon Dioxide (22-30) mmol/L BUN (9-20) mg/dL Glucose (74-99) mg/dL POC Glucose (mg/dL) 132 H 118 H 148 H (75-99) mg/dL Calcium (8.4-10.2) mg/dL Magnesium (1.6-2.3) mg/dL AST (17-59) U/L ALT (21-72) U/L Alkaline Phosphatase (38-126) U/L Total Protein (6.3-8.2) g/dL Albumin (3.5-5.0) g/dL 09/17/19 09/17/19 09/17/19 Range/Units 02:16 04:05 04:05 WBC 19.2 H (3.8-10.6) k/uL RBC 2.61 L (4.30-5.90) m/uL Hgb 8.2 L (13.0-17.5) gm/dL Hct 24.8 L (39.0-53.0) % RDW 16.0 H (11.5-15.5) % Plt Count 108 L (150-450) k/uL Sodium 136 L (137-145) mmol/L Carbon Dioxide 31 H (22-30) mmol/L BUN 43 H (9-20) mg/dL Glucose 136 H (74-99) mg/dL POC Glucose (mg/dL) 135 H (75-99) mg/dL Calcium 7.7 L (8.4-10.2) mg/dL Magnesium 2.4 H (1.6-2.3) mg/dL AST 77 H (17-59) U/L ALT 252 H (21-72) U/L Alkaline Phosphatase 208 H (38-126) U/L Total Protein 5.0 L (6.3-8.2) g/dL Albumin 2.8 L (3.5-5.0) g/dL 09/17/19 Range/Units 06:56 WBC (3.8-10.6) k/uL RBC (4.30-5.90) m/uL Hgb (13.0-17.5) gm/dL Hct (39.0-53.0) % RDW (11.5-15.5) % Plt Count (150-450) k/uL Sodium (137-145) mmol/L Carbon Dioxide (22-30) mmol/L BUN (9-20) mg/dL Glucose (74-99) mg/dL POC Glucose (mg/dL) 140 H (75-99) mg/dL Calcium (8.4-10.2) mg/dL Magnesium (1.6-2.3) mg/dL AST (17-59) U/L ALT (21-72) U/L Alkaline Phosphatase (38-126) U/L Total Protein (6.3-8.2) g/dL Albumin (3.5-5.0) g/dL Microbiology - Last 24 Hours (Table) 09/14/19 07:05 Blood Culture - Preliminary Blood No Growth after 48 hours 09/14/19 00:17 Gram Stain - Final Sputum Sputum Culture - Final Assessment and Plan Plan: 1 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 Postop day #5 2 coronary valve stenosis post aortic valve withabioprostheticvalve. Postop day #5 3 bleeding postoperatively, multifactorial including consumptive thrombocytopenia and the patient required a total of 7 units of packed RBCs, 5 units of fresh frozen plasma, 2 units of platelets and 2 units of cryoprecipitate. Currently platelet counts are stable is improving. Platelet count is up to 81 and a hemoglobin is up to 1.7. 4. Shock related to above with bleeding and tamponade physiology, post reexploration and evacuation of blood clots around the pericardium, recovered and output from the chest tube is currently minimal for now. 5 history of ITP postsplenectomy. Platelet counts are stable, improving on Arixtra 6 diabetes mellitus currently on insulin sliding scale coverage 7 obesity 8 obstructive sleep apnea not utilizing any form of CPAP therapy on outpatient basis due to poor tolerability currently off BiPAP and currently on 3 L by nasal cannula 9 acute hypoxic respiratory failure, expected outcome of surgery 10 bilateral pleural effusions, expected outcome of surgery 11 blood loss anemia, acute, postop, expected outcome of surgery 12 paroxysmal atrial fibrillation alternating with sinus rhythm Plan We'll give another dose of Lasix 20 mg IV push and he is able to tolerate diuretics will continue diuresing him. Continue using incentive spirometer. Monitor the white count. Monitor the platelet count. Output from the chest tubes are minimal and will have a discussion with cardiothoracic surgery regarding the possibility of removing the mediastinal chest tube. There are bilateral pleural effusion and some findings consistent with edema and/or going to monitor the chest x-ray. He is on aspirin. He is on oral amiodarone. His cardiac rhythm is sinus. He is off milrinone. He is on oral Cardizem. He is on Arixtra for DVT prophylaxis. We'll continue to follow.
[2019-09-17] MEDS ORDERED: FUROSEMIDE 10 MG/ML 2 ML VIAL IV SCH (09:30)
[2019-09-17] MEDS ORDERED: FUROSEMIDE 10 MG/ML 2 ML VIAL IV ONE (09:44)
[2019-09-17] MEDS ORDERED: CALCIUM GLUCONATE 1 GM in SODIUM CHLORIDE 0.9% 100 ML IVPB ONE (09:44)
--- NOTE | 2019-09-17 10:55 | P.ARTDOP ---
Arterial Doppler LOWER EXTREMITY ARTERIAL DOPPLER: DATE OF SERVICE: 09/10/2019 Reason for study: Pre-CABG. Doppler waveforms: Multiphasic bilaterally throughout. Pulse volume recording: []. Pressure gradients: None. Ankle-brachial indices: Greater than 1 bilaterally. Toe pressures: [] on the right, [] on the left Impression: Normal study.
--- NOTE | 2019-09-17 11:01 | P.VSCSTY ---
Greater Saphenous Vein Mapping This is bilateral lower extremity greater saphenous vein mapping. Date of service: 09/10/2019 Vein quality and ultrasound appearance: We see no endoluminal thrombus or wall changes. Multiple substantial branches bilaterally. Vein size groin right : 6.5 x 7.6 groin left: 8.2 x 7 High thigh right: 4.4 x 4.2 high thigh left: 4.4 x 4.0 Mid thigh right: 5.0 x 4.6 mid thigh left: 4.7 x 3.6 Above-knee right: 4.0 x 3.8 above- knee left: 3.6 x 3.4 Below knee right: 3.8 x 2.1 below-knee left: 3.2 x 2.9 Mid calf right: 2.2 x 2.2 mid calf left: 3.8 x 2.6 Ankle right: 2.3 x 1.6 ankle left: 2.8 x 2.4 Impression: Usable bilateral greater saphenous vein. Right may be a bit small towards the ankle..
[2019-09-17 11:15] LABS: Band Neutrophils % 1 %; Metamyelocytes % 1 %; Myelocytes % 1 %; Neutrophils % (M) 65 %; Nucleated Red Blood Cells 20 /100 WBC (0-0); Total Cells Counted 200
[2019-09-17 11:16] LABS: Eosinophils # (M) 0.64 k/uL (0-0.7); Lymphocytes # (M) 3.52 k/uL (1.0-4.8); Metamyelocytes # (M) 0.16 k/uL (0); Monocytes # (M) 1.44 k/uL (0-1.0); Myelocytes # (M) 0.16 k/uL (0)
[2019-09-17 11:17] LABS: Polychromasia Present
[2019-09-17 11:43] LABS: Glucose,Whole Blood 176 mg/dL (75-99)
[2019-09-17] MEDS: MAGNESIUM HYDROXIDE 2,400 MG/10 ML CUP PO PRN (14:00)
--- NOTE | 2019-09-17 14:12 | P.PN ---
Subjective Progress Note Date: 09/17/19 Principal diagnosis: 69-year-old male with a past medical history of coronary artery disease status post CABG, aortic stenosis, type 2 diabetes mellitus, hyperlipidemia, obstructive sleep apnea on CPAP coming to the hospital with a chief complaint of syncope. Patient states for the past 1-2 months he has been having dizziness and feels lightheaded. Yesterday he felt dizzy and passed out for almost 5-10 minutes. Patient denies having any loss of bowel or bladder control. No tongue bites. He denies having any chest pain or palpitations. Patient states that he gets short of breath on taking a flight of stairs in the recent months. Patient has, motor that is consistent with severe aortic stenosis, he states that he has this murmur for a long period of time. Patient denies having any fevers chills or rigors. No cough or difficulty in breathing. No dysuria or hematuria. No alcohol pain nausea vomiting or diarrhea. No weakness of his extremities. No headaches or blurring of vision. No speech abnormalities. In the emergency room patient had a CT of the head that was showing no acute intracranial process. He also had a chest x-ray that is within normal limits and an EKG showing normal sinus rhythm. There is mild elevation of troponins at 0.047. The patient has been admitted for further management. On 09/08/2019 - patient is sitting up in a chair by the bedside comfortably. He had an episode of dizziness this morning when he tried to get from the room to his bathroom. He did not have a fall. His headaches are much better. He denies having any chest pain. Mild shortness of breath. No cough. He denies having any fevers chills or rigors. No lower extremity swelling. Patient denies having any abdominal pain. Denies noticing any bleeding from any site. Patient's vitals have been stable. No acute events reported by nursing staff. Patient had an echocardiogram done this morning showing severe aortic stenosis. 09/09/2019 Patient will undergo cardiac catheterization and DAMARI today. Further management and plan depending on the DAMARI results of recent cardiac catheterization findings. Patient is complaining of mild lightheadedness no other significant symptoms at this time 09/10/2019 Patient is clinically doing well is found that there was a disease patient is being evaluated for CABG and aortic valve replacement. Patient is alert and oriented 3 to me but patient apparently was having some hallucinations which I believe secondary to benzodiazepines which were discontinued and Dilaudid will be discontinued and patient will need some nonpharmacological measures including ambulating the hallways will open of the windows and I believe this is secondary to owners and due to prolonged hospitalization 09/13/2019 Patient underwent coronary artery bypass grafting yesterday along with Arctic valve replacement patient the head bleeding and operative site area retro- cardiac bleeding for which patient has to borrow to go to or again for extubation and evacuation of clots patient received multiple blood product transfusion including PRBC transfusion. Patient is prior presently on multiple pressors including norepinephrine and vasopressin and Fco-Synephrine. Patient is also on milrinone and is receiving metoprolol as well. Patient is on patient is presently intubated sedated FiO2 of around 35% area patient is on D5W because of hypernatremia 09/14/2019 No overnight events patient is clinically doing better than yesterday patient is only and Fco-Synephrine now , Levothroid and vasopressin were discontinued and patient is on milrinone and IV insulin. Patient still has the chest tube patient is off sedation doing well and minimal vent settings 6 of PEEP of 10. Patient probably will be extubated today. Review of systems: Unable to obtain due to his clinical condition All inpatient medications were reviewed and appropriate changes in these medications as dictated in the interval history and assessment and plan. 09/15/2019 Patient is sitting up in bed in no acute distress . Patient is lethargic but easily arousable. Patient is currently being closely monitored in the ICU. Patient was extubated yesterday and is currently on milrinone, phenylephrine, amiodarone, and insulin drips. Yesterday patient had a brief period of atrial fibrillation and was placed on an amiodarone drip and is currently normal sinus at this time. Patient will likely be transitioned to oral amiodarone. Patient continues to have generalized edema noted to the upper and lower extremities and has been given IV Lasix. Patient's urine output has increased. Patient currently denies any chest pain or palpitations. Patient states that he does have some shortness of breath but has improved since yesterday. Patient also has a cough that is causing some chest discomfort with some phlegm production but has been unable to expectorate. Encouraged coughing and deep breathing along with incentive spirometer use at least 10 times every hour while awake. Patient currently remains on an insulin drip for tight glycemic control and will continue at this time until patient is eating. Patient was requesting PT/OT. Will continue to monitor closely. 09/16/2019 Patient is sitting up in the bed in no acute distress. Family is at the bedside. Patient is currently being monitored closely in the ICU. Multiple medical consultations are following closely. Patient continues to be on milrinone. Patient is being transitioned to oral amiodarone along with Cardizem for atrial fibrillation. Patient was started on a diet and insulin drip has been discontinued. Patient will continue with sliding scale. Swans Hakeem ca theter is being removed today and will continue with chest tubes at this time. Patient states that his shortness of breath has slightly improved and has a strong productive cough. Patient continues to have upper and lower extremity swelling and has a hard time using the Heart hugger due to the bilateral hand edema. Patient was given a dose of IV Lasix and is diuresing well. Will continue to monitor closely. 09/17/2019 Patient is sitting up in the chair in no acute distress with bilateral legs elevated and SCDs noted. Patient is currently being closely monitored in the ICU. Patient is much more alert and awake today and is currently sitting up eating no overnight issues. Patient continues to have mild shortness of breath but states has improved from yesterday. Patient states that he has been using his incentive spirometer along with coughing and deep breathing. Per nursing staff the plan is to possibly remove the chest tubes and the [place] later today. Patient continues to have bilateral hand edema and lower extremity edema but has improved. Blood sugars are well-controlled and being maintained on the sliding scale. Patient has been transitioned oral amiodarone along with oral Cardizem. Will continue to monitor closely. Objective - Vital Signs Vital signs: Vital Signs Temp 97.5 F L 09/17/19 12:00 Pulse 76 09/17/19 13:01 Resp 21 09/17/19 13:00 BP 108/65 09/17/19 13:00 Pulse Ox 94 L 09/17/19 13:00 Intake & Output 09/16/19 09/17/19 09/17/19 18:59 06:59 18:59 Intake Total 615.868 312 756 Output Total 1300 580 765 Balance -684.132 -268 -9 Weight 121.2 kg 126.1 kg Intake: IV 477 312 276 Calcium Gluconate 1 gm In 100 Sodium Chloride 0.9% 100 ml @ 100 mls/hr IVPB ONCE ONE Rx#:[id number] Calcium Gluconate 1 gm In 100 Sodium Chloride 0.9% 100 ml @ 100 mls/hr IVPB ONCE ONE Rx#:[id number] Dextrose 5% in Water 1, 240 240 140 000 ml @ 20 mls/hr IV . Q24H [facility] Rx#:[id number] Pressure bag 87 72 36 co/ci 50 Intake, IV Titration 138.868 Amount Insulin Regular 100 unit 46.034 In Sodium Chloride 0.9% 100 ml @ Titrate IV .Q0M [facility] Rx#:[id number] Milrinone-D5w Pmx 20 mg 92.834 In Dextrose/Water 1 100ml .bag @ 0.125 MCG/KG/MIN 4 .013 mls/hr IV .Q24H [facility] Rx#:[id number] Oral 480 Output: Chest Tube Drainage 200 150 30 Bilateral Mediastinal 80 90 20 left pleural 120 60 10 Urine 1100 430 735 Other: Voiding Method Indwelling Catheter Indwelling Catheter Indwelling Catheter ABP, PAP, CO, CI - Last Documented Arterial Blood Pressure 119/71 Pulmonary Artery Pressure 41/24 Cardiac Output 5.5 Cardiac Index 2.5 - Exam GENERAL: Patient is sitting up in the chair eating breakfast in no acute distress. HEENT: Pupils are round and equally reacting to light. EOMI. No scleral icterus. No conjunctival pallor. Normocephalic, atraumatic. No pharyngeal erythema. No thyromegaly. CARDIOVASCULAR: S1 and S2 present. No rubs, or gallops. systolic murmur PULMONARY: Diminished breath sounds at the bases with a few scattered crackles noted. Patient has 2 mediastinal and left pleural chest tubes ABDOMEN: Soft, obese, non-tender, non-distended, hypoactive bowel sounds. No palpable organomegaly. MUSCULOSKELETAL: No joint swelling or deformity. EXTREMITIES: No cyanosis, clubbing, or pedal edema. Generalized edema noted to bilateral upper and lower extremities with 2+ pitting edema in the hands, slight improvement NEUROLOGICAL: Moving all 4 limbs, off sedation SKIN: No rashes. - Labs CBC & Chem 7: 09/17/19 04:05 09/17/19 04:05 Labs: Abnormal Lab Results - Last 24 Hours (Table) 09/16/19 09/16/19 09/16/19 Range/Units 14:16 17:06 20:56 WBC (3.8-10.6) k/uL RBC (4.30-5.90) m/uL Hgb (13.0-17.5) gm/dL Hct (39.0-53.0) % RDW (11.5-15.5) % Plt Count (150-450) k/uL Neutrophils # (Manual) (1.3-7.7) k/uL Monocytes # (Manual) (0-1.0) k/uL Metamyelocytes # (Man) (0) k/uL Myelocytes # (Manual) (0) k/uL Nucleated RBCs (0-0) /100 WBC Sodium (137-145) mmol/L Carbon Dioxide (22-30) mmol/L BUN (9-20) mg/dL Glucose (74-99) mg/dL POC Glucose (mg/dL) 132 H 118 H 148 H (75-99) mg/dL Calcium (8.4-10.2) mg/dL Magnesium (1.6-2.3) mg/dL AST (17-59) U/L ALT (21-72) U/L Alkaline Phosphatase (38-126) U/L Total Protein (6.3-8.2) g/dL Albumin (3.5-5.0) g/dL 09/17/19 09/17/19 09/17/19 Range/Units 02:16 04:05 04:05 WBC 16.0 H (3.8-10.6) k/uL RBC 2.61 L (4.30-5.90) m/uL Hgb 8.2 L (13.0-17.5) gm/dL Hct 24.8 L (39.0-53.0) % RDW 16.0 H (11.5-15.5) % Plt Count 108 L (150-450) k/uL Neutrophils # (Manual) 10.50 H (1.3-7.7) k/uL Monocytes # (Manual) 1.44 H (0-1.0) k/uL Metamyelocytes # (Man) 0.16 H (0) k/uL Myelocytes # (Manual) 0.16 H (0) k/uL Nucleated RBCs 20 H (0-0) /100 WBC Sodium 136 L (137-145) mmol/L Carbon Dioxide 31 H (22-30) mmol/L BUN 43 H (9-20) mg/dL Glucose 136 H (74-99) mg/dL POC Glucose (mg/dL) 135 H (75-99) mg/dL Calcium 7.7 L (8.4-10.2) mg/dL Magnesium 2.4 H (1.6-2.3) mg/dL AST 77 H (17-59) U/L ALT 252 H (21-72) U/L Alkaline Phosphatase 208 H (38-126) U/L Total Protein 5.0 L (6.3-8.2) g/dL Albumin 2.8 L (3.5-5.0) g/dL 09/17/19 09/17/19 Range/Units 06:56 11:40 WBC (3.8-10.6) k/uL RBC (4.30-5.90) m/uL Hgb (13.0-17.5) gm/dL Hct (39.0-53.0) % RDW (11.5-15.5) % Plt Count (150-450) k/uL Neutrophils # (Manual) (1.3-7.7) k/uL Monocytes # (Manual) (0-1.0) k/uL Metamyelocytes # (Man) (0) k/uL Myelocytes # (Manual) (0) k/uL Nucleated RBCs (0-0) /100 WBC Sodium (137-145) mmol/L Carbon Dioxide (22-30) mmol/L BUN (9-20) mg/dL Glucose (74-99) mg/dL POC Glucose (mg/dL) 140 H 176 H (75-99) mg/dL Calcium (8.4-10.2) mg/dL Magnesium (1.6-2.3) mg/dL AST (17-59) U/L ALT (21-72) U/L Alkaline Phosphatase (38-126) U/L Total Protein (6.3-8.2) g/dL Albumin (3.5-5.0) g/dL Microbiology - Last 24 Hours (Table) 09/14/19 07:05 Blood Culture - Preliminary Blood No Growth after 72 hours Assessment and Plan Assessment: -Triple vessel coronary artery disease with a non-ST elevation myocardial infarction on admission status post CABG. -severe aortic stenosis status post bioprosthetic valve replacement. -Mild to moderate tricuspid regurgitation -Postoperative bleeding status post exploration and evacuation of blood clots -Respiratory failure postoperatively patient is off ventilatory support at this time and on 2 L via nasal cannula -Hyponatremia because of multiple IV fluid transfusion, improved -Postoperative shock probably hypovolemic patient was on multiple pressors as mentioned above and has received multiple units of blood transfusions -non-ST elevation myocardial infarction with triple vessel disease -Type 2 diabetes mellitus -Hypertension -Hyperlipidemia -Obstructive sleep apnea
[2019-09-17 16:38] LABS: Glucose,Whole Blood 143 mg/dL (75-99)
[2019-09-17] MEDS: ONDANSETRON 4 MG/2 ML VIAL IVP PRN (19:22)
[2019-09-17 20:35] LABS: Glucose,Whole Blood 166 mg/dL (75-99)
[2019-09-17] MEDS: SENNOSIDES-DOCUSATE SODIUM 1 EACH TAB PO SCH (20:53)
[2019-09-17] MEDS: ATORVASTATIN 40 MG TAB PO SCH (20:53)
[2019-09-17] MEDS: ACETAMINOPHEN TAB 500 MG TAB PO PRN (21:45)
[2019-09-18 03:58] LABS: Glucose,Whole Blood 135 mg/dL (75-99)
[2019-09-18] MEDS: DILTIAZEM ORAL 30 MG TAB PO SCH ×4 (04:02→23:31)
[2019-09-18] MEDS: KETOROLAC 30 MG/ML 1 ML VIAL IVP SCH ×4 (04:02→21:26)
[2019-09-18] MEDS: INSULIN ASPART (NovoLOG) 100 UNIT/ML VIAL SQ SCH ×5 (04:03→21:35)
[2019-09-18] MEDS: PANTOPRAZOLE 40 MG TABLET PO SCH ×2 (06:55→07:01)
[2019-09-18 07:01] LABS: Glucose,Whole Blood 122 mg/dL (75-99)
[2019-09-18] MEDS: FERROUS SULFATE 325 MG TAB PO SCH ×2 (07:01→17:11)
[2019-09-18] MEDS: ASCORBIC ACID 500 MG TAB PO SCH ×2 (07:01→17:11)
--- NOTE | 2019-09-18 07:16 | XR ---
EXAMINATION TYPE: XR chest 1V portable DATE OF EXAM: 09/18/2019 CLINICAL HISTORY: Difficulty breathing progress study. Postopen cardiac surgery. TECHNIQUE: Single AP portable upright view of the chest is obtained. COMPARISON: Chest x-ray from one day earlier and older studies. FINDINGS: Current study is suboptimal as does not include entire lung apices Interval removal of lef t chest tube and Mediastinal drainage catheter suspected which is not well seen. Interval removal of right internal jugular Gu[place]-Hakeem cordis sheath thought present. Overlying sternal wires are redemons trated. There is cardiomegaly with central vascular congestion and bibasilar opacities redemonstrated. No new pneumothorax is noted. Osseous structures are intact. IMPRESSION: Interval removal of left-sided chest tube without pneumothorax. Persistent cardiomegaly w ith moderate central vascular congestion and bibasilar opacities suggesting small pleural effusions a nd associated bibasilar atelectasis and/or infiltrate.
[2019-09-18 07:42] LABS: Anisocytosis Slight; HCT 25.4 % (39.0-53.0); HGB 8.4 gm/dL (13.0-17.5); Hypochromasia Slight; MCH 31.3 pg (25.0-35.0); MCHC 33.2 g/dL (31.0-37.0); MCV 94.4 fL (80.0-100.0); Macrocytosis Slight; Mean Platelet Volume 8.9; Platelet Count 158 k/uL (150-450); Poikilocytosis Slight; RBC 2.69 m/uL (4.30-5.90); RDW 17.1 % (11.5-15.5)
[2019-09-18 07:49] LABS: ALT 176 U/L (21-72); AST 58 U/L (17-59); African American GFR (CKD) >90 (>60 ml/min/1.73 sqM); Albumin 3.1 g/dL (3.5-5.0); Alkaline Phosphatase 185 U/L (38-126); Anion Gap 6 mmol/L; Blood Urea Nitrogen 45 mg/dL (9-20); Calcium 8.2 mg/dL (8.4-10.2); Carbon Dioxide 28 mmol/L (22-30); Chloride 105 mmol/L (98-107); Glucose 123 mg/dL (74-99); Non-African American GFR(CKD) 89 (>60 ml/min/1.73 sqM); Sodium 139 mmol/L (137-145); Total Bilirubin 1.2 mg/dL (0.2-1.3); Total Protein 5.6 g/dL (6.3-8.2)
[2019-09-18 07:51] LABS: Potassium 4.8 mmol/L (3.5-5.1)
[2019-09-18] MEDS: IPRATROPIUM-ALBUTEROL 3 ML NEB INHALATION SCH ×4 (08:00→19:07)
[2019-09-18] MEDS: METOPROLOL TARTRATE 12.5 MG TAB PO SCH (08:59)
[2019-09-18] MEDS: CLOPIDOGREL 75 MG TAB PO SCH (08:59)
[2019-09-18] MEDS: ASPIRIN 325 MG TAB PO SCH (08:59)
[2019-09-18] MEDS: AMIODARONE 200 MG TAB PO SCH ×2 (08:59→21:23)
--- NOTE | 2019-09-18 09:23 | P.PN ---
Subjective Progress Note Date: 09/18/19 On today's evaluation of 09/15/2019 I'm seeing this patient for a follow-up. The patient is looking better. He is awake and alert. He is hemodynamically doing better. He is currently on milrinone at 0.125 g per KG per minute and his cardiac output is at X.7 with an index of 3.1. PA diastolic is 21 mm. CVP is around 14. The patient was given Lasix 40 mg and is producing excellent amount of urine output. Chest x-ray showing better pleural effusion. Madison-Hakeem catheter is in good location. Sternum stable clean and intact. He has a congested cough. Bringing up minimal amount of sputum. He is afebrile for now. Infection is doubtful. The patient has increased edema both in upper and lower extremities. Platelet count is stable at 49. Chest tubes are in place. No evidence of any air leak. No evidence of any significant bleeding from the chest tube sites. He is postop day #3. 09/16/2019 I'm seeing the patient for a follow-up. He is awake and alert. Hemodynamically he was taken off the Fco-Synephrine and he remains on a low dose milrinone 0.125 g per KG per minute. Most recent cardiac output is at 5.5 with an index of 2.5. Pulmonary artery pressures of 44/26. Chest x-ray from today showing bilateral pleural effusion and cardiomegaly and pulmonary vessel congestion. Is producing excellent urine output and his urine output was in order of 3 L yesterday and the neck fluid balance was -1.4 L. He is going to receive another 20 mg of IV Lasix. His cardiac rhythm is sinus however overnight he is going back and forth into atrial fibrillation. He is on oral amiodarone. He is going to be started on Cardizem also here chest tubes are in place. There is no evidence of air leak. Output is minimal. The patient is a mediastinal and left pleural chest tube. The edema is still present in all 4 extremities although it is improving. No fever. No chills. Is postop day #4. Platelet counts are improving and it up to 81 and the patient is currently on Arixtra. On 09/17/2019 the patient is sitting up on a chair and is calm and comfortable and hemodynamically stable. This morning he is on oxygen at 2 L per minute nasal cannula. Chest x-ray still showing evidence of cardiomegaly and bilateral pleural effusions. The Madison-Hakeem catheter was removed yesterday and the cordis is still in place. He was given a dose of Lasix yesterday. He remains in a negative fluid balance. He was supposed to get a second dose later on that afternoon, however he became slightly hypotensive and the second dose was not given. This morning his BP is 120/60 with a normal sinus rhythm in the mid 70s. He still has increased swelling in the upper and lower extremities. Output from the chest tube has been in the order of 70 mL from the mediastinal tubes and 30 mL from the left pleural chest tube and output was serosanguineous in nature without evidence of any air leak. Note that the patient has no evidence of pneumothorax on his chest x-ray. Otherwise, is looking well. No specific complaints. Is awake and alert. His white cell count is at 19.2 which is compatible compared to yesterday. Hemoglobin is at 8.2 and the plated count is gradually improving is up to 108. Renal function stable. Electrodes are all within normal limits. LFTs are slightly off. There is gradually improving and today descending trends. The 2018 I'm seeing the patient for a follow-up. The patient is post bypass surgery and today he is postop day #5. The patient is feeling better as his Madison-Hakeem catheter and the chest tubes are out. His pacemaker was also removed. He is doing well. Is in a normal sinus rhythm. He is hemodynamically stable. He is on oxygen at 2 L per minute nasal cannula. Chest x-ray from today showing improvement in the volume status. The patient is cardiomegaly. Sternal wires are in place. There are bilateral pleural effusions [id number] erate patient was given Lasix yesterday. The net fluid balance over the past 24 hours has been an active 9 52 mL. The blood work from today shows a hemoglobin of 8.4 which is stable compared to yesterday. White cell count still elevated at 19.0. Renal function stable with a BUN of 45 and a creatinine 0.8. Rest of the electrodes are all within normal limits. He is awake and alert. Is followi ng commands. He is using incentive spirometer and is pulling approximately thousand. Objective - Vital Signs Vital signs: Vital Signs Temp 97.9 F 09/18/19 08:00 Pulse 82 09/18/19 08:00 Resp 20 09/18/19 08:00 BP 102/68 09/18/19 08:00 Pulse Ox 97 09/18/19 08:00 Intake & Output 09/17/19 09/18/19 09/18/19 18:59 06:59 18:59 Intake Total 1116 250 240 Output Total 795 600 250 Balance 321 -350 -10 Intake: IV 276 Calcium Gluconate 1 gm In 100 Sodium Chloride 0.9% 100 ml @ 100 mls/hr IVPB ONCE ONE Rx#:[id number] Dextrose 5% in Water 1, 140 000 ml @ 20 mls/hr IV . Q24H [facility] Rx#:[id number] Pressure bag 36 Oral 840 250 240 Output: Chest Tube Drainage 60 Bilateral Mediastinal 30 left pleural 30 Urine 735 600 250 Other: Voiding Method Indwelling Catheter Urinal # Voids 1 # Bowel Movements 1 ABP, PAP, CO, CI - Last Documented Arterial Blood Pressure 119/71 Pulmonary Artery Pressure 41/24 Cardiac Output 5.5 Cardiac Index 2.5 - Exam - Constitutional General appearance: Present: cooperative, no acute distress, obese - Respiratory Details: Lung sounds diminished bilaterally with crackles in the bases. Respirations even, non-labored. Currently on 3L NC with oxygen saturation 96%. Chest tubes have been removed and the exit site is dry clean and intact. - Cardiovascular Details: S1, S2 present. Regular rate and rhythm, sinus rhythm on telemetry. Sternum stable. - Gastrointestinal Gastrointestinal Comment(s): Abdomen soft, non-tender, non-distended, obese. Active bowel sounds present x 4 quadrants. Tolerating ice chips, clear liquids. Denies flatus, positive nausea. - Genitourinary Genitourinary Comment(s): [place] present draining cloudy, yellow urine. Urine output 50 mL per hour overni ght. - Integumentary Integumentary Comment(s): Skin is warm and dry. Anterior chest incision well approximated covered with dry intact dressing. Left radial artery harvest site well approximated, good cap refill, pt denies numbness/tingling, able to move fingers. Left lower extremity EVH site well approximated - Neurologic Neurologic: Present: CNII-XII intact - Musculoskeletal Musculoskeletal: Present: generalized weakness, strength equal bilaterally - Psychiatric Psychiatric: Present: A&O x's 3, appropriate affect, intact judgment & insight - Labs CBC & Chem 7: 09/18/19 07:09 09/18/19 07:09 Labs: Abnormal Lab Results - Last 24 Hours (Table) 09/17/19 09/17/19 09/17/19 Range/Units 04:05 11:40 16:36 WBC 16.0 H (3.8-10.6) k/uL RBC (4.30-5.90) m/uL Hgb (13.0-17.5) gm/dL Hct (39.0-53.0) % RDW (11.5-15.5) % Neutrophils # (Manual) 10.50 H (1.3-7.7) k/uL Monocytes # (Manual) 1.44 H (0-1.0) k/uL Metamyelocytes # (Man) 0.16 H (0) k/uL Myelocytes # (Manual) 0.16 H (0) k/uL Nucleated RBCs 20 H (0-0) /100 WBC BUN (9-20) mg/dL Glucose (74-99) mg/dL POC Glucose (mg/dL) 176 H 143 H (75-99) mg/dL Calcium (8.4-10.2) mg/dL ALT (21-72) U/L Alkaline Phosphatase (38-126) U/L Total Protein (6.3-8.2) g/dL Albumin (3.5-5.0) g/dL 09/17/19 09/18/19 09/18/19 Range/Units 20:33 03:57 06:59 WBC (3.8-10.6) k/uL RBC (4.30-5.90) m/uL Hgb (13.0-17.5) gm/dL Hct (39.0-53.0) % RDW (11.5-15.5) % Neutrophils # (Manual) (1.3-7.7) k/uL Monocytes # (Manual) (0-1.0) k/uL Metamyelocytes # (Man) (0) k/uL Myelocytes # (Manual) (0) k/uL Nucleated RBCs (0-0) /100 WBC BUN (9-20) mg/dL Glucose (74-99) mg/dL POC Glucose (mg/dL) 166 H 135 H 122 H (75-99) mg/dL Calcium (8.4-10.2) mg/dL ALT (21-72) U/L Alkaline Phosphatase (38-126) U/L Total Protein (6.3-8.2) g/dL Albumin (3.5-5.0) g/dL 09/18/19 09/18/19 Range/Units 07:09 07:09 WBC 19.0 H (3.8-10.6) k/uL RBC 2.69 L (4.30-5.90) m/uL Hgb 8.4 L (13.0-17.5) gm/dL Hct 25.4 L (39.0-53.0) % RDW 17.1 H (11.5-15.5) % Neutrophils # (Manual) (1.3-7.7) k/uL Monocytes # (Manual) (0-1.0) k/uL Metamyelocytes # (Man) (0) k/uL Myelocytes # (Manual) (0) k/uL Nucleated RBCs (0-0) /100 WBC BUN 45 H (9-20) mg/dL Glucose 123 H (74-99) mg/dL POC Glucose (mg/dL) (75-99) mg/dL Calcium 8.2 L (8.4-10.2) mg/dL ALT 176 H (21-72) U/L Alkaline Phosphatase 185 H (38-126) U/L Total Protein 5.6 L (6.3-8.2) g/dL Albumin 3.1 L (3.5-5.0) g/dL Microbiology - Last 24 Hours (Table) 09/14/19 07:05 Blood Culture - Preliminary Blood No Growth after 72 hours Assessment and Plan Plan: 1 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 Postop day #6 2 coronary valve stenosis post aortic valve with a bioprostheticvalve. Postop day #6 3 bleeding postoperatively, multifactorial including consumptive throm bocytopenia and the patient required a total of 7 units of packed RBCs, 5 units of fresh frozen plasma, 2 units of platelets and 2 units of cryoprecipitate. The hemoglobin is at 8.4 with a platelet count of 158 and the numbers are stable and there are improving. 4. Shock related to above with bleeding and tamponade physiology, post reexploration and evacuation of blood clots around the pericardium, recovered and output from the chest tube is currently minimal for now. 5 history of ITP postsplenectomy. Platelet counts are stable, improving on Arixtra 6 diabetes mellitus currently on insulin sliding scale coverage 7 obesity 8 obstructive sleep apnea not utilizing any form of CPAP therapy on outpatient basis due to poor tolerability currently off BiPAP and currently on 3 L by nasal cannula 9 acute hypoxic respiratory failure, expected outcome of surgery, improving and currently on 3 L of oxygen by nasal cannula 10 bilateral pleural effusions, expected outcome of surgery, improving 11 blood loss anemia, acute, postop, expected outcome of surgery, stable 12 paroxysmal atrial fibrillation alternating with sinus rhythm 13 leukocytosis. There is a concern that the patient may be infected however he does not have any fever or any focus of infection. He is postsplenectomy. I will check a pro-calcitonin level. We are also consulting with infectious disease regarding this issue of elevated white count. Plan Continue on IV Lasix. Chest x-ray from today was reviewed. Monitor hemoglobin. Monitor white count. Obtain a pro-calcitonin level. Antibiotic treatment for now. Monitor the fever pattern. Platelet counts are improving. He is recovering reasonably well. He is doing limited amount of activity with few steps done yesterday. He'll be kept in ICU for today. Chest tubes are out. We'll follow.
[2019-09-18] MEDS: FONDAPARINUX 2.5 MG/0.5 ML SYRINGE SQ SCH (09:27)
[2019-09-18] MEDS: FUROSEMIDE 10 MG/ML 4 ML VIAL IV SCH ×2 (09:27→21:24)
--- NOTE | 2019-09-18 10:42 | P.PN ---
Subjective Progress Note Date: 09/18/19 Principal diagnosis: Severe aortic valve stenosis and triple-vessel coronary artery disease. Past medical history significant for coronary artery disease, status post coronary artery bypass grafting surgery in 1999 with his left internal mammary artery to left anterior descending coronary artery, known aortic valve stenosis, history of platelet disorder status post splenectomy, diabetes mellitus type 2, hyperlipidemia, hypertension, obesity and a remote history of nicotine d ependence which he quit smoking over 25 years ago. POD #6 Urgent median sternotomy with redo double coronary artery bypass grafting using the left radial artery from the aorta to the right coronary artery, reverse saphenous vein graft from the aorta to the obtuse marginal artery, aortic valve replacement using a 25 mm Inspiris pericardial bioprosthesis, endoscopic harvesting of the left radial artery, endoscopic harvesting of the left greater saphenous vein in the groin to above the ankle level, intraoperative graft flow measurements using the Vibeaseim system, intraoperative transesophageal echocardiogram and epi-aortic scanning. Postoperative prolonged mechanical ventilation secondary to re-operation and acidosis, unexpected. Postoperative lactic acidosis with metabolic acidosis, resolved. Postoperative thrombocytopenia, expected. Postoperative hypotension, unexpected. Postoperative hypernatremia, unexpected. Postoperative acute blood loss anemia, expected from hemodilution and cardiopulmonary bypass, with postoperative bleeding which was unexpected. POD #5 re-operation, sternal exploration with evacuation of clots. Postoperative transaminitis, somewhat expected due to hypotension. Postoperative atrial fibrillation, unexpected but common occurance after open heart surgery. The patient is sitting up to the bedside chair in the intensive care unit. He is in no acute distress. Tolerated around 50% of his breakfast. Denies any complaints of pain or shortness of breath. Remained hemodynamically stable and is currently on no inotropic or pressor support. He remains afebrile although this morning his labs demonstrated a WBC count of 19.0. Oxygen saturations are 97% on 3 L nasal cannula and he is achieving 750 mL on his incentive spirometry. +2 generalized edema. He reports he is having some continued generalized weakness and only walk about 10 steps in his room yesterday. Objective - Vital Signs Vital signs: Vital Signs Temp 97.9 F 09/18/19 08:00 Pulse 83 09/18/19 09:00 Resp 14 09/18/19 09:00 BP 102/68 09/18/19 09:00 Pulse Ox 97 09/18/19 09:00 Intake & Output 09/17/19 09/18/19 09/18/19 18:59 06:59 18:59 Intake Total 1116 250 340 Output Total 795 600 250 Balance 321 -350 90 Intake: IV 276 Calcium Gluconate 1 gm In 100 Sodium Chloride 0.9% 100 ml @ 100 mls/hr IVPB ONCE ONE Rx#:[id number] Dextrose 5% in Water 1, 140 000 ml @ 20 mls/hr IV . Q24H [facility] Rx#:[id number] Pressure bag 36 Oral 840 250 340 Output: Chest Tube Drainage 60 Bilateral Mediastinal 30 left pleural 30 Urine 735 600 250 Other: Voiding Method Indwelling Catheter Urinal # Voids 1 # Bowel Movements 1 ABP, PAP, CO, CI - Last Documented Arterial Blood Pressure 119/71 Pulmonary Artery Pressure 41/24 Cardiac Output 5.5 Cardiac Index 2.5 - Constitutional General appearance: Present: cooperative, morbidly obese, no acute distress - Respiratory Details: Lung sounds essentially clear and diminished to his bilateral upper lobe, few s cattered crackles to his bilateral bases. Respirations are symmetrical and nonlabored. Oxygen saturation are 97% on 3 L nasal cannula. Achieving 750 mL on his incentive spirometry. - Cardiovascular Details: Regular rhythm and rate. S1 and S2 present, negative for S3, gallop or murmur. Sternum is stable. Generalized +2 edema. Heart hugger is in place and he is demonstrating appropriate use. Knee-high KORTNEY hose and sequential compression devices in place to his bilateral lower extremities. - Gastrointestinal Gastrointestinal Comment(s): Abdomen is soft, nontender and nondistended. Active bowel sounds present all 4 abdominal quadrants. No guarding or rigidity. Tolerating oral intake. Passing flatus. - Genitourinary Genitourinary Comment(s): Voiding clear yellow urine. 550 mL output in the last 8 hours. - Integumentary Integumentary Comment(s): Skin is warm and dry. No clubbing or cyanosis is present. Midline sternal incision is clean, dry and approximated. No drainage or redness is present. Gauze dressing is clean and dry. Left radial harvest site is clean, dry and approximated. No drainage or redness is present. Palpable ulnar pulse. Left lower extremity EVH site is clean, dry and approximated. - Neurologic Neurologic: Present: CNII-XII intact - Musculoskeletal Musculoskeletal: Present: gait normal, generalized weakness, strength equal bilaterally - Psychiatric Psychiatric: Present: A&O x's 3, appropriate affect, intact judgment & insight - Allied health notes Allied health notes reviewed: nursing - Labs CBC & Chem 7: 09/18/19 07:09 09/18/19 07:09 Labs: Abnormal Lab Results - Last 24 Hours (Table) 09/17/19 09/17/19 09/17/19 Range/Units 04:05 11:40 16:36 WBC 16.0 H (3.8-10.6) k/uL RBC (4.30-5.90) m/uL Hgb (13.0-17.5) gm/dL Hct (39.0-53.0) % RDW (11.5-15.5) % Neutrophils # (Manual) 10.50 H (1.3-7.7) k/uL Monocytes # (Manual) 1.44 H (0-1.0) k/uL Metamyelocytes # (Man) 0.16 H (0) k/uL Myelocytes # (Manual) 0.16 H (0) k/uL Nucleated RBCs 20 H (0-0) /100 WBC BUN (9-20) mg/dL Glucose (74-99) mg/dL POC Glucose (mg/dL) 176 H 143 H (75-99) mg/dL Calcium (8.4-10.2) mg/dL ALT (21-72) U/L Alkaline Phosphatase (38-126) U/L Total Protein (6.3-8.2) g/dL Albumin (3.5-5.0) g/dL 09/17/19 09/18/19 09/18/19 Range/Units 20:33 03:57 06:59 WBC (3.8-10.6) k/uL RBC (4.30-5.90) m/uL Hgb (13.0-17.5) gm/dL Hct (39.0-53.0) % RDW (11.5-15.5) % Neutrophils # (Manual) (1.3-7.7) k/uL Monocytes # (Manual) (0-1.0) k/uL Metamyelocytes # (Man) (0) k/uL Myelocytes # (Manual) (0) k/uL Nucleated RBCs (0-0) /100 WBC BUN (9-20) mg/dL Glucose (74-99) mg/dL POC Glucose (mg/dL) 166 H 135 H 122 H (75-99) mg/dL Calcium (8.4-10.2) mg/dL ALT (21-72) U/L Alkaline Phosphatase (38-126) U/L Total Protein (6.3-8.2) g/dL Albumin (3.5-5.0) g/dL 09/18/19 09/18/19 Range/Units 07:09 07:09 WBC 19.0 H (3.8-10.6) k/uL RBC 2.69 L (4.30-5.90) m/uL Hgb 8.4 L (13.0-17.5) gm/dL Hct 25.4 L (39.0-53.0) % RDW 17.1 H (11.5-15.5) % Neutrophils # (Manual) (1.3-7.7) k/uL Monocytes # (Manual) (0-1.0) k/uL Metamyelocytes # (Man) (0) k/uL Myelocytes # (Manual) (0) k/uL Nucleated RBCs (0-0) /100 WBC BUN 45 H (9-20) mg/dL Glucose 123 H (74-99) mg/dL POC Glucose (mg/dL) (75-99) mg/dL Calcium 8.2 L (8.4-10.2) mg/dL ALT 176 H (21-72) U/L Alkaline Phosphatase 185 H (38-126) U/L Total Protein 5.6 L (6.3-8.2) g/dL Albumin 3.1 L (3.5-5.0) g/dL Microbiology - Last 24 Hours (Table) 09/14/19 07:05 Blood Culture - Preliminary Blood No Growth after 96 hours - Imaging and Cardiology Chest x-ray: report reviewed, image reviewed Assessment and Plan Assessment: 1. Triple-vessel calcified coronary artery disease, NSTEMI in this admission, status post urgent two-vessel bypass 2. Severe aortic valve stenosis, status post bioprosthetic aortic valve replacement 3. Mild to moderate tricuspid valve regurgitation 4. Hypertension 5. Hyperlipidemia 6. History of ITP status post splenectomy 7. Type 2 diabetes mellitus, hemoglobin A1c 6.6% 8. Morbid obesity 9. Previous tobacco dependence, moderate COPD with FEV1 54% of predicted 10. Postoperative lactic acidosis with metabolic acidosis, resolving 11. Postoperative thrombocytopenia, resolving 12. Postoperative hypotension, resolved 13. Postoperative hypernatremia, resolved 14. Postoperative acute blood loss anemia with postoperative bleeding, status post reoperation with sternal exploration and evacuation of clots 15. Postoperative transaminitis 16. Postoperative prolonged mechanical ventilation 17. Postoperative atrial fibrillation, currently in normal sinus rhythm Plan: 1. Continue to optimize medical management with full strength aspirin, plavix, statin and beta robin. Will increase metoprolol tartrate to 25 mg by mouth twice a day. 2. Continue oral amiodarone and Cardizem PO 30mg every 8 hours for radial artery prophylaxis. No anticoagulation unless afib >24 hours. 3. Wean oxygen as tolerated. Encourage incentive spirometry as tolerated. Bronchodilators per pulmonology, no steroid based inhaler per pulmonary 4. Lasix 40 mg IV twice a day. 5. Increase activity as tolerated, out of bed to chair. PT/OT/cardiac rehab following 6. Will monitor daily x-rays and labs. Electrolyte replacement per protocol. 7. Insulin management per primary care service. 8. Pain control per current medication regimen. 9. GI/DVT prophylaxis. Continue Arixtra. 10. Due to patient's WBC count of 19.0 today we will send a pro-calcitonin level, sputum culture for Gram stain and C&S and blood cultures. Please have Dr. Ferguson see the patient from infectious disease due to the patient's increase in WBC and patient's history of splenectomy. 11. Encourage use of incentive spirometry every hour while awake. 12. More recommendations to follow based on patient's clinical course. Time with Patient: Greater than 30
[2019-09-18 11:38] LABS: Glucose,Whole Blood 147 mg/dL (75-99)
--- NOTE | 2019-09-18 13:29 | PN ---
PROGRESS NOTE Mr. Pereyra is a 69-year-old gentleman with CAD status post redo bypass surgery with aortic valve replacement. The patient has had prolonged mechanical ventilation but is making steady improvement. He is currently on amiodarone 400 b.i.d., aspirin, Lipitor, Plavix 75 mg daily, Cardizem 30 q8, Lasix 40 IV b.i.d., insulin, Toradol, Lopressor 25 b.i.d., Protonix, and Zofran. EXAM: Comfortable at rest. Vital signs are stable. Chest exam reveals diminished air entry bilaterally. Heart exam reveals first and second heart sounds. No gallop. Exam of the extremities reveals mild edema. Peripheral pulses are palpable. LABS: Showed that the hemoglobin is 8.4, platelet count is 158, creatinine is 0.8, potassium is 4.8. ASSESSMENT: 1. Coronary artery disease status post CABG, status post aortic stenosis, status post aortic valve replacement. 2. Paroxysmal atrial fibrillation. PLAN: Patient is doing better. We will continue with his current medications. MMODL / IJN: [id number] /
[2019-09-18 16:54] LABS: Glucose,Whole Blood 497 mg/dL (75-99)
[2019-09-18 16:57] LABS: Glucose,Whole Blood 195 mg/dL (75-99)
[2019-09-18 20:57] LABS: Glucose,Whole Blood 130 mg/dL (75-99)
[2019-09-18] MEDS: METOPROLOL TARTRATE 25 MG TAB PO SCH (21:23)
[2019-09-18] MEDS: ATORVASTATIN 40 MG TAB PO SCH (21:24)
[2019-09-18] MEDS: SENNOSIDES-DOCUSATE SODIUM 1 EACH TAB PO SCH (21:27)
[2019-09-19 02:42] LABS: Glucose,Whole Blood 165 mg/dL (75-99)
[2019-09-19] MEDS: INSULIN ASPART (NovoLOG) 100 UNIT/ML VIAL SQ SCH ×5 (02:45→22:03)
[2019-09-19] MEDS: KETOROLAC 30 MG/ML 1 ML VIAL IVP SCH ×4 (02:46→22:05)
[2019-09-19 05:19] LABS: Anisocytosis Slight; HCT 26.1 % (39.0-53.0); HGB 8.2 gm/dL (13.0-17.5); Hypochromasia Slight; MCH 30.9 pg (25.0-35.0); MCHC 31.5 g/dL (31.0-37.0); MCV 98.1 fL (80.0-100.0); Macrocytosis Slight; Mean Platelet Volume 8.6; Platelet Count 240 k/uL (150-450); Poikilocytosis Slight; RBC 2.66 m/uL (4.30-5.90); RDW 17.4 % (11.5-15.5)
[2019-09-19 05:28] LABS: ALT 131 U/L (21-72); AST 39 U/L (17-59); African American GFR (CKD) >90 (>60 ml/min/1.73 sqM); Albumin 2.9 g/dL (3.5-5.0); Alkaline Phosphatase 142 U/L (38-126); Anion Gap 4 mmol/L; Blood Urea Nitrogen 38 mg/dL (9-20); Calcium 7.9 mg/dL (8.4-10.2); Carbon Dioxide 35 mmol/L (22-30); Chloride 103 mmol/L (98-107); Glucose 154 mg/dL (74-99); Non-African American GFR(CKD) >90 (>60 ml/min/1.73 sqM); Potassium 4.3 mmol/L (3.5-5.1); Sodium 142 mmol/L (137-145); Total Bilirubin 1.2 mg/dL (0.2-1.3); Total Protein 5.3 g/dL (6.3-8.2)
[2019-09-19 06:20] LABS: Band Neutrophils % 5 %; Eosinophils # (M) 0.77 k/uL (0-0.7); Lymphocytes # (M) 1.99 k/uL (1.0-4.8); Metamyelocytes # (M) 0.15 k/uL (0); Metamyelocytes % 1 %; Monocytes # (M) 0.92 k/uL (0-1.0); Neutrophils % (M) 71 %; Nucleated Red Blood Cells 9 /100 WBC (0-0); Total Cells Counted 200; WBC 15.3 k/uL (3.8-10.6)
[2019-09-19 06:21] LABS: Polychromasia Present
[2019-09-19 06:23] LABS: Large Platelets Present
[2019-09-19] MEDS: FERROUS SULFATE 325 MG TAB PO SCH ×2 (06:34→17:51)
[2019-09-19] MEDS: ASCORBIC ACID 500 MG TAB PO SCH ×2 (06:34→17:51)
[2019-09-19] MEDS: PANTOPRAZOLE 40 MG TABLET PO SCH (06:38)
--- NOTE | 2019-09-19 06:48 | XR ---
EXAMINATION TYPE: XR chest 1V portable DATE OF EXAM: 09/19/2019 CLINICAL HISTORY: Difficulty breathing progress study. TECHNIQUE: Single AP portable upright view of the chest is obtained. COMPARISON: Chest x-ray from one day earlier and older studies. CTA chest September 11, 2019 FINDINGS: Overlying sternal wires are redemonstrated. Overlying EKG leads again seen. Persistent car diomegaly an central vascular congestion with bibasilar opacities felt to reflect small bilateral ple ural effusions and associated bibasilar atelectasis and/or infiltrate. Some [place] B lines or interst itial edema redemonstrated left lung periphery. IMPRESSION: Findings consistent with CHF exacerbation remain present as there is cardiomegaly with ce ntral vascular congestion and interstitial edema along with small bilateral pleural effusions all are redemonstrated. Associated bibasilar acute atelectasis and/or infiltrate are all noted.
[2019-09-19 06:52] LABS: Glucose,Whole Blood 141 mg/dL (75-99)
[2019-09-19] MEDS: IPRATROPIUM-ALBUTEROL 3 ML NEB INHALATION SCH ×4 (07:48→19:45)
[2019-09-19] MEDS: DILTIAZEM ORAL 30 MG TAB PO SCH ×2 (08:27→16:20)
[2019-09-19] MEDS: AMIODARONE 200 MG TAB PO SCH ×2 (08:27→22:04)
[2019-09-19] MEDS: CLOPIDOGREL 75 MG TAB PO SCH (08:28)
[2019-09-19] MEDS: METOPROLOL TARTRATE 25 MG TAB PO SCH ×2 (08:28→22:05)
[2019-09-19] MEDS: ASPIRIN 325 MG TAB PO SCH (08:28)
[2019-09-19] MEDS: FONDAPARINUX 2.5 MG/0.5 ML SYRINGE SQ SCH (08:29)
[2019-09-19] MEDS: FUROSEMIDE 10 MG/ML 4 ML VIAL IV SCH ×2 (08:30→22:05)
--- NOTE | 2019-09-19 09:46 | P.PN ---
Subjective Progress Note Date: 09/19/19 On 09/18/2019 I'm seeing the patient for a follow-up. Is postop day #7. He is doing some limited ambulation today. He is still weak. Chest x-ray shows thyromegaly and pulmonary vessel congestion. Atelectatic changes in lung bases. All of the chest is a been removed and the patient is currently on 2 L of oxygen by nasal cannula. White sock is slightly improved compared to yesterday's down to 15. Renal function remains stable. Sternum stable clean and intact. Limited edema in lower extremities bilaterally. Using incentive spirometer and is pulling more than 1000 mL. No other significant events overnight. Objective - Vital Signs Vital signs: Vital Signs Temp 97.6 F 09/19/19 08:00 Pulse 80 09/19/19 09:00 Resp 14 09/19/19 09:00 BP 115/77 09/19/19 09:00 Pulse Ox 96 09/19/19 09:00 Intake & Output 09/18/19 09/19/19 09/19/19 18:59 06:59 18:59 Intake Total 640 150 Output Total 1150 1250 250 Balance -510 -1100 -250 Weight 121.1 kg Intake: Oral 640 150 Output: Urine 1150 1250 250 Other: Voiding Method Urinal Urinal # Voids 1 # Bowel Movements 1 ABP, PAP, CO, CI - Last Documented Arterial Blood Pressure 119/71 Pulmonary Artery Pressure 41/24 Cardiac Output 5.5 Cardiac Index 2.5 - Exam - Constitutional General appearance: Present: cooperative, no acute distress, obese - Respiratory Details: Lung sounds diminished bilaterally with crackles in the bases. Respirations even, non-labored. Currently on 2L NC with oxygen saturation 96%. Chest tubes have been removed and the exit site is dry clean and intact. - Cardiovascular Details: S1, S2 present. Regular rate and rhythm, sinus rhythm on telemetry. Sternum stable. - Gastrointestinal Gastrointestinal Comment(s): Abdomen soft, non-tender, non-distended, obese. Active bowel sounds present x 4 quadrants. Tolerating ice chips, clear liquids. Denies flatus, positive nausea. - Genitourinary Genitourinary Comment(s): [place] present draining cloudy, yellow urine. Urine output 50 mL per hour overnight. - Integumentary Integumentary Comment(s): Skin is warm and dry. Anterior chest incision well approximated covered with dry intact dressing. Left radial artery harvest site well approximated, good cap refill, pt denies numbness/tingling, able to move fingers. Left lower extremity EVH site well approximated - Neurologic Neurologic: Present: CNII-XII intact - Musculoskeletal Musculoskeletal: Present: generalized weakness, strength equal bilaterally - Psychiatric Psychiatric: Present: A&O x's 3, appropriate affect, intact judgment & insight - Labs CBC & Chem 7: 09/19/19 04:55 09/19/19 04:55 Labs: Abnormal Lab Results - Last 24 Hours (Table) 09/18/19 09/18/19 09/18/19 Range/Units 11:37 16:52 16:55 WBC (3.8-10.6) k/uL RBC (4.30-5.90) m/uL Hgb (13.0-17.5) gm/dL Hct (39.0-53.0) % RDW (11.5-15.5) % Neutrophils # (Manual) (1.3-7.7) k/uL Eosinophils # (Manual) (0-0.7) k/uL Metamyelocytes # (Man) (0) k/uL Nucleated RBCs (0-0) /100 WBC Carbon Dioxide (22-30) mmol/L BUN (9-20) mg/dL Glucose (74-99) mg/dL POC Glucose (mg/dL) 147 H 497 H 195 H (75-99) mg/dL Calcium (8.4-10.2) mg/dL ALT (21-72) U/L Alkaline Phosphatase (38-126) U/L Total Protein (6.3-8.2) g/dL Albumin (3.5-5.0) g/dL 09/18/19 09/19/19 09/19/19 Range/Units 20:56 02:40 04:55 WBC 15.3 H (3.8-10.6) k/uL RBC 2.66 L (4.30-5.90) m/uL Hgb 8.2 L (13.0-17.5) gm/dL Hct 26.1 L (39.0-53.0) % RDW 17.4 H (11.5-15.5) % Neutrophils # (Manual) 11.60 H (1.3-7.7) k/uL Eosinophils # (Manual) 0.77 H (0-0.7) k/uL Metamyelocytes # (Man) 0.15 H (0) k/uL Nucleated RBCs 9 H (0-0) /100 WBC Carbon Dioxide (22-30) mmol/L BUN (9-20) mg/dL Glucose (74-99) mg/dL POC Glucose (mg/dL) 130 H 165 H (75-99) mg/dL Calcium (8.4-10.2) mg/dL ALT (21-72) U/L Alkaline Phosphatase (38-126) U/L Total Protein (6.3-8.2) g/dL Albumin (3.5-5.0) g/dL 09/19/19 09/19/19 Range/Units 04:55 06:51 WBC (3.8-10.6) k/uL RBC (4.30-5.90) m/uL Hgb (13.0-17.5) gm/dL Hct (39.0-53.0) % RDW (11.5-15.5) % Neutrophils # (Manual) (1.3-7.7) k/uL Eosinophils # (Manual) (0-0.7) k/uL Metamyelocytes # (Man) (0) k/uL Nucleated RBCs (0-0) /100 WBC Carbon Dioxide 35 H (22-30) mmol/L BUN 38 H (9-20) mg/dL Glucose 154 H (74-99) mg/dL POC Glucose (mg/dL) 141 H (75-99) mg/dL Calcium 7.9 L (8.4-10.2) mg/dL ALT 131 H (21-72) U/L Alkaline Phosphatase 142 H (38-126) U/L Total Protein 5.3 L (6.3-8.2) g/dL Albumin 2.9 L (3.5-5.0) g/dL Microbiology - Last 24 Hours (Table) 09/14/19 07:05 Blood Culture - Preliminary Blood No Growth after 120 hours 09/18/19 10:15 Gram Stain - Preliminary Sputum Sputum Culture - Preliminary Assessment and Plan Plan: 1 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 Postop day #7 2 coronary valve stenosis post aortic valve with a bioprostheticvalve. Postop day #7 3 bleeding postoperatively, multifactorial including consumptive thrombocytopenia and the patient required a total of 7 units of packed RBCs, 5 units of fresh frozen plasma, 2 units of platelets and 2 units of cryoprecipitate. The hemoglobin is at 8.2 4. Shock related to above with bleeding and tamponade physiology, post reexploration and evacuation of blood clots around the pericardium, recovered and output from the chest tube is currently minimal for now. 5 history of ITP postsplenectomy. Platelet counts are stable, improving on Arixtra 6 diabetes mellitus currently on insulin sliding scale coverage 7 obesity 8 obstructive sleep apnea not utilizing any form of CPAP therapy on outpatient basis due to poor tolerability currently off BiPAP and currently on 3 L by nasal cannula 9 acute hypoxic respiratory failure, expected outcome of surgery, improving and currently on 2 L of oxygen by nasal cannula 10 bilateral pleural effusions, expected outcome of surgery, improving 11 blood loss anemia, acute, postop, expected outcome of surgery, stable 12 paroxysmal atrial fibrillation alternating with sinus rhythm 13 leukocytosis, improving, infection is doubtful at age Plan Continue the diuretics with Lasix 40 mg twice a day. Increased level of activity as tolerated. Hemoglobin is at 8.2. Platelet counts are stable. The white cell count is improving. Doubt infection. We'll continue to follow.
--- NOTE | 2019-09-19 10:26 | P.PN ---
Subjective Progress Note Date: 09/19/19 Principal diagnosis: Severe aortic valve stenosis and triple-vessel coronary artery disease. Past medical history significant for coronary artery disease, status post coronary artery bypass grafting surgery in 1999 with his left internal mammary artery to left anterior descending coronary artery, known aortic valve stenosis, history of platelet disorder status post splenectomy, diabetes mellitus type 2, hyperlipidemia, hypertension, obesity and a remote history of nicotine d ependence which he quit smoking over 25 years ago. POD #7 Urgent median sternotomy with redo double coronary artery bypass grafting using the left radial artery from the aorta to the right coronary artery, reverse saphenous vein graft from the aorta to the obtuse marginal artery, aortic valve replacement using a 25 mm Inspiris pericardial bioprosthesis, endoscopic harvesting of the left radial artery, endoscopic harvesting of the left greater saphenous vein in the groin to above the ankle level, intraoperative graft flow measurements using the Adventiim system, intraoperative transesophageal echocardiogram and epi-aortic scanning. Postoperative prolonged mechanical ventilation secondary to re-operation and acidosis, unexpected. Postoperative lactic acidosis with metabolic acidosis, resolved. Postoperative thrombocytopenia, expected. Postoperative hypotension, unexpected. Postoperative hypernatremia, unexpected. Postoperative acute blood loss anemia, expected from hemodilution and cardiopulmonary bypass, with postoperative bleeding which was unexpected. POD #6 re-operation, sternal exploration with evacuation of clots. Postoperative transaminitis, somewhat expected due to hypotension. Postoperative atrial fibrillation, unexpected but common occurance after open heart surgery. The patient is sitting up to the bedside chair in the intensive care unit. He is in no acute distress. Reports that he is feeling better on a daily basis. Denies any complaints of pain or shortness of breath. He is complaining of generalized weakness which he relates to his edema to his upper and lower extremities. The patient reports that he tolerated ambulating to the nurse's station just outside his room yesterday and back with minimal assistance from nursing staff. He remains hemodynamically stable and is currently on no inotropic or pressor support. Oxygen saturations are 95% on 2 L nasal cannula. Achieving 750-1000 mL on his incentive spirometry with encouragement. Due to some complaints of nausea after having his breathing treatments, he has been refusing the nebulizer treatments that have been ordered. Objective - Vital Signs Vital signs: Vital Signs Temp 97.6 F 09/19/19 08:00 Pulse 83 09/19/19 07:00 Resp 24 09/19/19 08:00 BP 122/69 09/19/19 08:00 Pulse Ox 98 09/19/19 08:00 Intake & Output 09/18/19 09/19/19 09/19/19 18:59 06:59 18:59 Intake Total 640 150 Output Total 1150 1250 250 Balance -510 -1100 -250 Weight 121.1 kg Intake: Oral 640 150 Output: Urine 1150 1250 250 Other: Voiding Method Urinal Urinal # Voids 1 # Bowel Movements 1 ABP, PAP, CO, CI - Last Documented Arterial Blood Pressure 119/71 Pulmonary Artery Pressure 41/24 Cardiac Output 5.5 Cardiac Index 2.5 - Constitutional General appearance: Present: cooperative, morbidly obese, no acute distress - Respiratory Details: Lung sounds with expiratory wheezes throughout, diminished to his bilateral bases. Respirations are symmetrical and nonlabored. Oxygen saturation are 95% on 2 L nasal cannula. Achieving 750-1000 mL on his incentive spirometry. - Cardiovascular Details: Regular rhythm and rate. S1 and S2 present, negative for S3, gallop or murmur. Sternum is stable. Bedside telemetry showing normal sinus rhythm heart rate 78. Heart hugger is in place and he is demonstrating appropriate use. Knee-high KORTNEY hose and sequential compression devices in place to his bilateral lower extremities. Generalized +2 edema. - Gastrointestinal Gastrointestinal Comment(s): Abdomen is soft, nontender and nondistended. Active bowel sounds present all 4 abdominal quadrants. No guarding or rigidity. No organomegaly appreciated. Passing flatus. Tolerating oral intake. - Genitourinary Genitourinary Comment(s): Voiding clear yellow urine. 750 mL output in the last 8 hours. - Integumentary Integumentary Comment(s): Skin is warm and dry. No clubbing or cyanosis is present. Midline sternal incision is clean, dry and approximated. No drainage or redness is present. Gauze dressing is clean, dry and intact. Left radial harvest sites clean, dry and approximated. No drainage or redness present. Palpable ulnar pulse present. Left lower extremity EVH site clean, dry and approximated. No drainage or redness is present. - Neurologic Neurologic: Present: CNII-XII intact - Musculoskeletal Musculoskeletal: Present: gait normal, generalized weakness, strength equal bilaterally - Psychiatric Psychiatric: Present: A&O x's 3, appropriate affect, intact judgment & insight - Allied health notes Allied health notes reviewed: nursing - Labs CBC & Chem 7: 09/19/19 04:55 09/19/19 04:55 Labs: Abnormal Lab Results - Last 24 Hours (Table) 09/18/19 09/18/19 09/18/19 Range/Units 11:37 16:52 16:55 WBC (3.8-10.6) k/uL RBC (4.30-5.90) m/uL Hgb (13.0-17.5) gm/dL Hct (39.0-53.0) % RDW (11.5-15.5) % Neutrophils # (Manual) (1.3-7.7) k/uL Eosinophils # (Manual) (0-0.7) k/uL Metamyelocytes # (Man) (0) k/uL Nucleated RBCs (0-0) /100 WBC Carbon Dioxide (22-30) mmol/L BUN (9-20) mg/dL Glucose (74-99) mg/dL POC Glucose (mg/dL) 147 H 497 H 195 H (75-99) mg/dL Calcium (8.4-10.2) mg/dL ALT (21-72) U/L Alkaline Phosphatase (38-126) U/L Total Protein (6.3-8.2) g/dL Albumin (3.5-5.0) g/dL 09/18/19 09/19/19 09/19/19 Range/Units 20:56 02:40 04:55 WBC 15.3 H (3.8-10.6) k/uL RBC 2.66 L (4.30-5.90) m/uL Hgb 8.2 L (13.0-17.5) gm/dL Hct 26.1 L (39.0-53.0) % RDW 17.4 H (11.5-15.5) % Neutrophils # (Manual) 11.60 H (1.3-7.7) k/uL Eosinophils # (Manual) 0.77 H (0-0.7) k/uL Metamyelocytes # (Man) 0.15 H (0) k/uL Nucleated RBCs 9 H (0-0) /100 WBC Carbon Dioxide (22-30) mmol/L BUN (9-20) mg/dL Glucose (74-99) mg/dL POC Glucose (mg/dL) 130 H 165 H (75-99) mg/dL Calcium (8.4-10.2) mg/dL ALT (21-72) U/L Alkaline Phosphatase (38-126) U/L Total Protein (6.3-8.2) g/dL Albumin (3.5-5.0) g/dL 09/19/19 09/19/19 Range/Units 04:55 06:51 WBC (3.8-10.6) k/uL RBC (4.30-5.90) m/uL Hgb (13.0-17.5) gm/dL Hct (39.0-53.0) % RDW (11.5-15.5) % Neutrophils # (Manual) (1.3-7.7) k/uL Eosinophils # (Manual) (0-0.7) k/uL Metamyelocytes # (Man) (0) k/uL Nucleated RBCs (0-0) /100 WBC Carbon Dioxide 35 H (22-30) mmol/L BUN 38 H (9-20) mg/dL Glucose 154 H (74-99) mg/dL POC Glucose (mg/dL) 141 H (75-99) mg/dL Calcium 7.9 L (8.4-10.2) mg/dL ALT 131 H (21-72) U/L Alkaline Phosphatase 142 H (38-126) U/L Total Protein 5.3 L (6.3-8.2) g/dL Albumin 2.9 L (3.5-5.0) g/dL Microbiology - Last 24 Hours (Table) 09/18/19 10:15 Gram Stain - Preliminary Sputum Sputum Culture - Preliminary 09/14/19 07:05 Blood Culture - Preliminary Blood No Growth after 96 hours - Imaging and Cardiology Chest x-ray: report reviewed, image reviewed Assessment and Plan Assessment: 1. Triple-vessel calcified coronary artery disease, NSTEMI in this admission, status post urgent two-vessel bypass 2. Severe aortic valve stenosis, status post bioprosthetic aortic valve replac ement 3. Mild to moderate tricuspid valve regurgitation 4. Hypertension 5. Hyperlipidemia 6. History of ITP status post splenectomy 7. Type 2 diabetes mellitus, hemoglobin A1c 6.6% 8. Morbid obesity 9. Previous tobacco dependence, moderate COPD with FEV1 54% of predicted 10. Postoperative lactic acidosis with metabolic acidosis, resolving 11. Postoperative thrombocytopenia, resolving 12. Postoperative hypotension, resolved 13. Postoperative hypernatremia, resolved 14. Postoperative acute blood loss anemia with postoperative bleeding, status post reoperation with sternal exploration and evacuation of clots 15. Postoperative transaminitis 16. Postoperative prolonged mechanical ventilation 17. Postoperative atrial fibrillation, currently in normal sinus rhythm Plan: 1. Continue to optimize medical management with full strength aspirin, plavix, statin and beta robin. Will increase metoprolol tartrate as tolerated. 2. Continue oral amiodarone and Cardizem PO 30mg every 8 hours for radial artery spasm prophylaxis. 3. Wean oxygen as tolerated. Encourage incentive spirometry as tolerated. Bronchodilators per pulmonology, no steroid based inhaler per pulmonary 4. Continue Lasix 40 mg IV twice a day. 5. Increase activity as tolerated, out of bed to chair for all meals. PT/OT/cardiac rehab following 6. Will monitor daily chest x-rays and labs. Electrolyte replacement per protocol. 7. Insulin management per primary care service. 8. Pain control per current medication regimen. Avoid opioids. 9. GI/DVT prophylaxis. Continue Arixtra. 10. Blood culture results pending. Sputum sent for Gram stain and C&S yesterday with preliminary results showing many polymorphonuclear leukocytes, rare epithelial cells, few gram-positive cocci, multiple morphologies present, rare gram-positive bacilli. He remains afebrile and his WBC count today was 15.3 with positive bandemia of 5. 11. Encourage use of incentive spirometry every hour while awake. 12. We will transfer the patient to the cardiac stepdown unit today for further rehabilitation needs. 13. More recommendations to follow based on patient's clinical course. Time with Patient: Greater than 30
[2019-09-19 11:44] LABS: Glucose,Whole Blood 126 mg/dL (75-99)
--- NOTE | 2019-09-19 12:09 | PN ---
PROGRESS NOTE Joseph is a 69-year-old gentleman with coronary artery disease, status post redo bypass and aortic valve replacement. This morning, patient appears better. He is sitting up, stable hemodynamically and is not complaining of shortness of breath. PHYSICAL EXAMINATION: On exam, patient is comfortable at rest. O2 saturation is 95% on 2 L. Doing well on incentive spirometry. There is no jugular venous distention. Chest exam reveals diminished air entry at the bases. Heart exam reveals first and second heart sounds. No gallop. No murmur. Abdomen is soft. Exam of the extremities reveals 2+ edema. Peripheral pulses are felt. LABS: Labs show that hemoglobin is 8.2, platelet count is 240. Potassium is 4.3. Creatinine is 0.8. ASSESSMENT: Coronary artery disease, status post redo coronary artery bypass grafting, status post aortic valve replacement. PLAN: The patient is doing much better. I am going to change the amiodarone to 200 b.i.d. from tomorrow. Continue the aspirin, Lipitor, Plavix, Lasix, Lopressor. MMODL / IJN: [id number] /
--- NOTE | 2019-09-19 12:17 | P.PN ---
Subjective 69-year-old male with a past medical history of coronary artery disease status post CABG, aortic stenosis, type 2 diabetes mellitus, hyperlipidemia, obstructive sleep apnea on CPAP coming to the hospital with a chief complaint of syncope. Patient states for the past 1-2 months he has been having dizziness and feels lightheaded. Yesterday he felt dizzy and passed out for almost 5-10 minutes. Patient denies having any loss of bowel or bladder control. No tongue bites. He denies having any chest pain or palpitations. Patient states that he gets short of breath on taking a flight of stairs in the recent months. Patient has, motor that is consistent with severe aortic stenosis, he states that he has this murmur for a long period of time. Patient denies having any fevers chills or rigors. No cough or difficulty in breathing. No dysuria or hematuria. No alcohol pain nausea vomiting or diarrhea. No weakness of his extremities. No headaches or blurring of vision. No speech abnormalities. In the emergency room patient had a CT of the head that was showing no acute intracranial process. He also had a chest x-ray that is within normal limits and an EKG showing normal sinus rhythm. There is mild elevation of troponins at 0.047. The patient has been admitted for further management. On 09/08/2019 - patient is sitting up in a chair by the bedside comfortably. He had an episode of dizziness this morning when he tried to get from the room to his bathroom. He did not have a fall. His headaches are much better. He denie s having any chest pain. Mild shortness of breath. No cough. He denies having any fevers chills or rigors. No lower extremity swelling. Patient denies having any abdominal pain. Denies noticing any bleeding from any site. Patient's vitals have been stable. No acute events reported by nursing staff. Patient had an echocardiogram done this morning showing severe aortic stenosis. 09/09/2019 Patient will undergo cardiac catheterization and DAMARI today. Further management and plan depending on the DAMARI results of recent cardiac catheterization findings. Patient is complaining of mild lightheadedness no other significant symptoms at this time 09/10/2019 Patient is clinically doing well is found that there was a disease patient is being evaluated for CABG and aortic valve replacement. Patient is alert and oriented 3 to me but patient apparently was having some hallucinations which I believe secondary to benzodiazepines which were discontinued and Dilaudid will be discontinued and patient will need some nonpharmacological measures including ambulating the hallways will open of the windows and I believe this is secondary to owners and due to prolonged hospitalization 09/13/2019 Patient underwent coronary artery bypass grafting yesterday along with Arctic valve replacement patient the head bleeding and operative site area retro- cardiac bleeding for which patient has to borrow to go to or again for extubation and evacuation of clots patient received multiple blood product transfusion including PRBC transfusion. Patient is prior presently on multiple pressors including norepinephrine and vasopressin and Fco-Synephrine. Patient is also on milrinone and is receiving metoprolol as well. Patient is on patient is presently intubated sedated FiO2 of around 35% area patient is on D5W because of hypernatremia 09/14/2019 No overnight events patient is clinically doing better than yesterday patient is only and Fco-Synephrine now , Levothroid and vasopressin were discontinued and patient is on milrinone and IV insulin. Patient still has the chest tube patient is off sedation doing well and minimal vent settings 6 of PEEP of 10. Patient probably will be extubated today. Review of systems: Unable to obtain due to his clinical condition All inpatient medications were reviewed and appropriate changes in these medications as dictated in the interval history and assessment and plan. 09/19/2019 Patient's chest tubes are out patient is looking much better patient is on amiodarone, Cardizem for A. fib Lasix 40 IV twice a day for pulmonary edema. No significant overnight events. Patient has history of ITP. Constitutional: Denied any fatigue denied any fever. Cardio vascular: denied any chest pain, palpitations Gastrointestinal denied any nausea vomiting Pulmonary: Denied any shortness of breath cough Neurologic denied any new focal deficits All inpatient medications were reviewed and appropriate changes in these medications as dictated in the interval history and assessment and plan. Objective - Vital Signs Vital signs: Vital Signs Temp 97.6 F 09/19/19 08:00 Pulse 86 09/19/19 10:05 Resp 14 09/19/19 09:00 BP 115/77 09/19/19 09:00 Pulse Ox 98 09/19/19 10:05 Intake & Output 09/18/19 09/19/19 09/19/19 18:59 06:59 18:59 Intake Total 640 150 Output Total 1150 1250 250 Balance -510 1100 -250 Weight 121.1 kg Intake: Oral 640 150 Output: Urine 1150 1250 250 Other: Voiding Method Urinal Urinal Urinal # Voids 1 # Bowel Movements 1 ABP, PAP, CO, CI - Last Documented Arterial Blood Pressure 119/71 Pulmonary Artery Pressure 41/24 Cardiac Output 5.5 Cardiac Index 2.5 - Exam PHYSICAL EXAMINATION: GENERAL: The patient is alert and oriented x3, not in any acute distress. Obese HEENT: Pupils are round and equally reacting to light. EOMI. No scleral icterus. No conjunctival pallor. Normocephalic, atraumatic. No pharyngeal erythema. No thyromegaly. CARDIOVASCULAR: S1 and S2 present. No murmurs, rubs, or gallops. PULMONARY: Normal crackles bilaterally. ABDOMEN: Soft, nontender, nondistended, normoactive bowel sounds. No palpable organomegaly. MUSCULOSKELETAL: No joint swelling or deformity. EXTREMITIES: No cyanosis, clubbing, or pedal edema. NEUROLOGICAL: Gross neurological examination did not reveal any focal deficits. SKIN: No rashes. - Labs CBC & Chem 7: 09/19/19 04:55 09/19/19 04:55 Labs: Abnormal Lab Results - Last 24 Hours (Table) 09/18/19 09/18/19 09/18/19 Range/Units 16:52 16:55 20:56 WBC (3.8-10.6) k/uL RBC (4.30-5.90) m/uL Hgb (13.0-17.5) gm/dL Hct (39.0-53.0) % RDW (11.5-15.5) % Neutrophils # (Manual) (1.3-7.7) k/uL Eosinophils # (Manual) (0-0.7) k/uL Metamyelocytes # (Man) (0) k/uL Nucleated RBCs (0-0) /100 WBC Carbon Dioxide (22-30) mmol/L BUN (9-20) mg/dL Glucose (74-99) mg/dL POC Glucose (mg/dL) 497 H 195 H 130 H (75-99) mg/dL Calcium (8.4-10.2) mg/dL ALT (21-72) U/L Alkaline Phosphatase (38-126) U/L Total Protein (6.3-8.2) g/dL Albumin (3.5-5.0) g/dL 09/19/19 09/19/19 09/19/19 Range/Units 02:40 04:55 04:55 WBC 15.3 H (3.8-10.6) k/uL RBC 2.66 L (4.30-5.90) m/uL Hgb 8.2 L (13.0-17.5) gm/dL Hct 26.1 L (39.0-53.0) % RDW 17.4 H (11.5-15.5) % Neutrophils # (Manual) 11.60 H (1.3-7.7) k/uL Eosinophils # (Manual) 0.77 H (0-0.7) k/uL Metamyelocytes # (Man) 0.15 H (0) k/uL Nucleated RBCs 9 H (0-0) /100 WBC Carbon Dioxide 35 H (22-30) mmol/L BUN 38 H (9-20) mg/dL Glucose 154 H (74-99) mg/dL POC Glucose (mg/dL) 165 H (75-99) mg/dL Calcium 7.9 L (8.4-10.2) mg/dL ALT 131 H (21-72) U/L Alkaline Phosphatase 142 H (38-126) U/L Total Protein 5.3 L (6.3-8.2) g/dL Albumin 2.9 L (3.5-5.0) g/dL 09/19/19 09/19/19 Range/Units 06:51 11:42 WBC (3.8-10.6) k/uL RBC (4.30-5.90) m/uL Hgb (13.0-17.5) gm/dL Hct (39.0-53.0) % RDW (11.5-15.5) % Neutrophils # (Manual) (1.3-7.7) k/uL Eosinophils # (Manual) (0-0.7) k/uL Metamyelocytes # (Man) (0) k/uL Nucleated RBCs (0-0) /100 WBC Carbon Dioxide (22-30) mmol/L BUN (9-20) mg/dL Glucose (74-99) mg/dL POC Glucose (mg/dL) 141 H 126 H (75-99) mg/dL Calcium (8.4-10.2) mg/dL ALT (21-72) U/L Alkaline Phosphatase (38-126) U/L Total Protein (6.3-8.2) g/dL Albumin (3.5-5.0) g/dL Microbiology - Last 24 Hours (Table) 09/18/19 08:56 Blood Culture - Preliminary Blood No Growth after 24 hours 09/14/19 07:05 Blood Culture - Preliminary Blood No Growth after 120 hours 09/18/19 10:15 Gram Stain - Preliminary Sputum Sputum Culture - Preliminary Assessment and Plan Plan: -Triple vessel coronary artery disease with a non-ST elevation myocardial infarction on admission status post CABG. -severe aortic stenosis status post bioprosthetic valve replacement. -Mild to moderate tricuspid regurgitation -Postoperative bleeding status post exploration and evacuation of blood clots -History of idiopathic thrombocytopenic purpura -Respiratory failure postoperatively patient is on ventilatory support at this time --Bilateral pleural effusions, pulmonary edema due to IV fluids he received and a transurethral received Lasix as needed -Proximal A. fib on amiodarone as mentioned above -Postoperative shock probably hypovolemic patient is on multiple pressors as mentioned above dysuria multiple units of blood transfusion, resolved now patient is in volume overload now - non-ST elevation myocardial infarction with triple vessel disease -Type 2 diabetes mellitus -Hypertension -Hyperlipidemia #Obstructive sleep apnea
[2019-09-19 16:39] LABS: Glucose,Whole Blood 169 mg/dL (75-99)
[2019-09-19 20:37] LABS: Glucose,Whole Blood 151 mg/dL (75-99)
[2019-09-19 21:41] LABS: Glucose,Whole Blood 140 mg/dL (75-99)
[2019-09-19] MEDS: SENNOSIDES-DOCUSATE SODIUM 1 EACH TAB PO SCH (22:05)
[2019-09-19] MEDS: ATORVASTATIN 40 MG TAB PO SCH (22:05)
[2019-09-20] MEDS: DILTIAZEM ORAL 30 MG TAB PO SCH ×3 (00:58→15:42)
[2019-09-20 01:05] LABS: Glucose,Whole Blood 143 mg/dL (75-99)
[2019-09-20] MEDS: INSULIN ASPART (NovoLOG) 100 UNIT/ML VIAL SQ SCH ×5 (01:05→19:50)
[2019-09-20 06:18] LABS: Glucose,Whole Blood 142 mg/dL (75-99)
[2019-09-20] MEDS: ASCORBIC ACID 500 MG TAB PO SCH ×2 (06:29→17:59)
[2019-09-20] MEDS: FERROUS SULFATE 325 MG TAB PO SCH ×2 (06:29→17:59)
[2019-09-20] MEDS: KETOROLAC 30 MG/ML 1 ML VIAL IVP SCH ×4 (06:30→22:30)
[2019-09-20 06:45] LABS: Anisocytosis Slight; HCT 26.3 % (39.0-53.0); HGB 8.7 gm/dL (13.0-17.5); Hypochromasia Slight; MCH 31.9 pg (25.0-35.0); MCHC 33.1 g/dL (31.0-37.0); MCV 96.4 fL (80.0-100.0); Macrocytosis Slight; Mean Platelet Volume 8.6; Platelet Count 347 k/uL (150-450); Poikilocytosis Slight; RBC 2.73 m/uL (4.30-5.90); RDW 17.5 % (11.5-15.5)
--- NOTE | 2019-09-20 06:50 | XR ---
EXAMINATION TYPE: XR chest 2V DATE OF EXAM: 09/20/2019 COMPARISON: Chest x-ray from yesterday and older studies HISTORY: Post open cardiac surgery progress study. TECHNIQUE: Frontal and lateral views of the chest are obtained. FINDINGS: Overlying sternal wires are redemonstrated. Overlying EKG leads are again seen. Persistent cardiomegaly and central vascular congestion with left greater than right bibasilar opacities on cur rent study. Right basilar findings slightly improved from prior. Keyonna B lines left lung periphery remain present but improved. Metallic aortic valve is noted. IMPRESSION: Improving interstitial edema and right basilar opacity. Persistent cardiomegaly with mil d central vascular congestion and small bilateral pleural effusions with left greater than right biba silar acute atelectasis and/or infiltrate are all redemonstrated.
[2019-09-20 07:09] LABS: ALT 101 U/L (21-72); AST 38 U/L (17-59); African American GFR (CKD) >90 (>60 ml/min/1.73 sqM); Alkaline Phosphatase 117 U/L (38-126); Anion Gap 8 mmol/L; Blood Urea Nitrogen 36 mg/dL (9-20); Calcium 8.1 mg/dL (8.4-10.2); Carbon Dioxide 33 mmol/L (22-30); Chloride 104 mmol/L (98-107); Glucose 133 mg/dL (74-99); Non-African American GFR(CKD) 90 (>60 ml/min/1.73 sqM); Potassium 4.2 mmol/L (3.5-5.1); Sodium 145 mmol/L (137-145); Total Bilirubin 1.2 mg/dL (0.2-1.3); Total Protein 5.8 g/dL (6.3-8.2)
[2019-09-20] MEDS: ASPIRIN 325 MG TAB PO SCH ×2 (07:48→08:48)
[2019-09-20] MEDS: ATORVASTATIN 80 MG TAB PO SCH (07:48)
[2019-09-20] MEDS: HEPARIN SODIUM,PORCINE 5,000 UNIT/ML 1 ML VIAL SQ SCH (07:48)
[2019-09-20] MEDS: MUPIROCIN 2% OINT 22 GM TUBE NASAL SCH (07:49)
[2019-09-20] MEDS: PHENYLEPHRINE 40 MG in SODIUM CHLORIDE 0.9% 250 ML IV SCH (07:49)
[2019-09-20] MEDS: METOPROLOL TARTRATE 25 MG TAB PO SCH ×3 (07:49→19:51)
[2019-09-20] MEDS: IPRATROPIUM-ALBUTEROL 3 ML NEB INHALATION SCH ×4 (08:14→19:57)
[2019-09-20 08:23] LABS: Neutrophils % (M) 67 %; Nucleated Red Blood Cells 1 /100 WBC (0-0); Total Cells Counted 200
[2019-09-20 08:24] LABS: Eosinophils # (M) 1.58 k/uL (0-0.7); Lymphocytes # (M) 2.02 k/uL (1.0-4.8); Monocytes # (M) 1.15 k/uL (0-1.0); Neutrophils # (M) 9.65 k/uL (1.3-7.7); WBC 14.4 k/uL (3.8-10.6)
[2019-09-20 08:27] LABS: Polychromasia Present
[2019-09-20 08:28] LABS: Large Platelets Present
[2019-09-20] MEDS: CLOPIDOGREL 75 MG TAB PO SCH (08:48)
[2019-09-20] MEDS: AMIODARONE 200 MG TAB PO SCH ×2 (08:48→19:51)
[2019-09-20] MEDS: FUROSEMIDE 10 MG/ML 4 ML VIAL IV SCH ×2 (08:49→19:51)
[2019-09-20] MEDS: FONDAPARINUX 2.5 MG/0.5 ML SYRINGE SQ SCH (08:49)
--- NOTE | 2019-09-20 09:56 | PN ---
PROGRESS NOTE FOLLOW-UP NOTE: Joseph is a 70-year-old gentleman who was admitted to hospital with coronary artery disease for redo CABG and aortic valve replacement. He is making slow but steady recovery. This morning he is about to get his first shower. Denies any difficulty in breathing. Has some leg and arm edema. Denies chest pain. Remains in regular rhythm. PHYSICAL EXAMINATION: Heart rate is 87 beats per minute. Blood pressure is 124/63, respiratory rate 18. Chest exam reveals diminished air entry bilaterally. Heart exam reveals first and second heart sounds. No gallop. Examination of the extremities reveals bilateral mild edema. LABS: Hemoglobin 8.7. Platelet count is 347. Potassium is 4.2. Creatinine is 0.85. ASSESSMENT: Coronary artery disease, status post coronary artery bypass grafting, status post aortic valve replacement. PLAN: Patient is doing better. Increase his activity. Continue with aggressive incentive spirometry. Continue current medications, including amiodarone, which I am going to decrease to 200 b.i.d., aspirin, Lipitor, Plavix, oral Cardizem, Lopressor. Will continue with the IV Lasix at this time. MMODL / IJN: [id number] /
--- NOTE | 2019-09-20 11:27 | P.PN ---
Subjective Progress Note Date: 09/20/19 Principal diagnosis: Severe aortic valve stenosis and triple-vessel coronary artery disease. Past medical history significant for coronary artery disease, status post coronary artery bypass grafting surgery in 1999 with his left internal mammary artery to left anterior descending coronary artery, known aortic valve stenosis, history of platelet disorder status post splenectomy, diabetes mellitus type 2, hyperlipidemia, hypertension, obesity and a remote history of nicotine d ependence which he quit smoking over 25 years ago. POD #8 Urgent median sternotomy with redo double coronary artery bypass grafting using the left radial artery from the aorta to the right coronary artery, reverse saphenous vein graft from the aorta to the obtuse marginal artery, aortic valve replacement using a 25 mm Inspiris pericardial bioprosthesis, endoscopic harvesting of the left radial artery, endoscopic harvesting of the left greater saphenous vein in the groin to above the ankle level, intraoperative graft flow measurements using the iRewindim system, intraoperative transesophageal echocardiogram and epi-aortic scanning. Postoperative prolonged mechanical ventilation secondary to re-operation and acidosis, unexpected. Postoperative lactic acidosis with metabolic acidosis, resolved. Postoperative thrombocytopenia, expected. Postoperative hypotension, unexpected. Postoperative hypernatremia, unexpected. Postoperative acute blood loss anemia, expected from hemodilution and cardiopulmonary bypass, with postoperative bleeding which was unexpected. POD #7 re-operation, sternal exploration with evacuation of clots. Postoperative transaminitis, somewhat expected due to hypotension. Postoperative atrial fibrillation, unexpected but common occurance after open heart surgery. The patient is sitting up to the bedside chair on the cardiac stepdown unit. He is in no acute distress. Reports that he is feeling better on a daily basis. Denies any complaints of pain, although complaining of shortness of breath with activity. He continues to complain of generalized weakness which he relates to his edema to his upper and lower extremities. He remains hemodynamically stable and is currently on no inotropic or pressor support. Oxygen saturations are 98% on 2 L nasal cannula. Achieving 750 mL on his incentive spirometry with encouragement. He remains afebrile and his WBC count continues to trend down, today it is 14.5. Objective - Vital Signs Vital signs: Vital Signs Temp 98.9 F 09/20/19 08:00 Pulse 87 09/20/19 08:00 Resp 20 09/20/19 08:00 BP 124/63 09/20/19 08:00 Pulse Ox 98 09/20/19 08:00 Intake & Output 09/19/19 09/20/19 09/20/19 18:59 06:59 18:59 Intake Total 240 360 Output Total 251 650 Balance -251 -410 360 Weight 120.6 kg Intake: Oral 240 360 Output: Urine 250 650 Urine/Stool Mix 1 Other: Voiding Method Urinal Urinal # Voids 2 1 # Bowel Movements 1 ABP, PAP, CO, CI - Last Documented Arterial Blood Pressure 119/71 Pulmonary Artery Pressure 41/24 Cardiac Output 5.5 Cardiac Index 2.5 - Constitutional General appearance: Present: cooperative, no acute distress, obese - Respiratory Details: Lungs sounds essentially clear to his bilateral upper lobes, diminished to his bilateral bases. No wheezes, rhonchi or crackles present. Respirations are symmetrical and nonlabored. Oxygen saturation are 98% on 2 L nasal cannula. Achieving 750 mL on his incentive spirometry. - Cardiovascular Details: Regular rhythm and rate. S1 and S2 present, negative for S3, gallop or murmur. Generalized +2 edema. Sternum is stable. Heart hugger is in place and he is demonstrating appropriate use. Knee-high KORTNEY hose and sequential compression devices in place to his bilateral lower extremities. - Gastrointestinal Gastrointestinal Comment(s): Abdomen is soft, nontender and nondistended. Active bowel sounds present in all 4 abdominal quadrants. No guarding or rigidity. No organomegaly appreciated. Bowel movement yesterday. - Genitourinary Genitourinary Comment(s): Voiding clear michaela urine. - Integumentary Integumentary Comment(s): Skin is warm and dry. No clubbing or cyanosis is present. Midline sternal in cision is clean, dry and approximated. No drainage or redness is present. Gauze dressing is clean, dry and intact. Left radial harvest sites clean, dry and approximated. No drainage or redness present. Palpable ulnar pulse present. Left lower extremity EVH site clean, dry and approximated. No drainage or redness is present. - Neurologic Neurologic: Present: CNII-XII intact - Musculoskeletal Musculoskeletal: Present: gait normal, generalized weakness, strength equal bilaterally - Psychiatric Psychiatric: Present: A&O x's 3, appropriate affect, intact judgment & insight - Allied health notes Allied health notes reviewed: nursing - Labs CBC & Chem 7: 09/20/19 06:21 09/20/19 06:21 Labs: Abnormal Lab Results - Last 24 Hours (Table) 09/18/19 09/19/19 09/19/19 Range/Units 08:05 11:42 16:38 WBC (3.8-10.6) k/uL RBC (4.30-5.90) m/uL Hgb (13.0-17.5) gm/dL Hct (39.0-53.0) % RDW (11.5-15.5) % Neutrophils # (Manual) (1.3-7.7) k/uL Monocytes # (Manual) (0-1.0) k/uL Eosinophils # (Manual) (0-0.7) k/uL Nucleated RBCs (0-0) /100 WBC Carbon Dioxide (22-30) mmol/L BUN (9-20) mg/dL Glucose (74-99) mg/dL POC Glucose (mg/dL) 126 H 169 H (75-99) mg/dL Calcium (8.4-10.2) mg/dL ALT (21-72) U/L Total Protein (6.3-8.2) g/dL Albumin (3.5-5.0) g/dL Procalcitonin 0.80 H (0.02-0.09) ng/mL 09/19/19 09/19/19 09/20/19 Range/Units 20:36 21:39 01:03 WBC (3.8-10.6) k/uL RBC (4.30-5.90) m/uL Hgb (13.0-17.5) gm/dL Hct (39.0-53.0) % RDW (11.5-15.5) % Neutrophils # (Manual) (1.3-7.7) k/uL Monocytes # (Manual) (0-1.0) k/uL Eosinophils # (Manual) (0-0.7) k/uL Nucleated RBCs (0-0) /100 WBC Carbon Dioxide (22-30) mmol/L BUN (9-20) mg/dL Glucose (74-99) mg/dL POC Glucose (mg/dL) 151 H 140 H 143 H (75-99) mg/dL Calcium (8.4-10.2) mg/dL ALT (21-72) U/L Total Protein (6.3-8.2) g/dL Albumin (3.5-5.0) g/dL Procalcitonin (0.02-0.09) ng/mL 09/20/19 09/20/19 09/20/19 Range/Units 06:17 06:21 06:21 WBC 14.4 H (3.8-10.6) k/uL RBC 2.73 L (4.30-5.90) m/uL Hgb 8.7 L (13.0-17.5) gm/dL Hct 26.3 L (39.0-53.0) % RDW 17.5 H (11.5-15.5) % Neutrophils # (Manual) 9.65 H (1.3-7.7) k/uL Monocytes # (Manual) 1.15 H (0-1.0) k/uL Eosinophils # (Manual) 1.58 H (0-0.7) k/uL Nucleated RBCs 1 H (0-0) /100 WBC Carbon Dioxide 33 H (22-30) mmol/L BUN 36 H (9-20) mg/dL Glucose 133 H (74-99) mg/dL POC Glucose (mg/dL) 142 H (75-99) mg/dL Calcium 8.1 L (8.4-10.2) mg/dL ALT 101 H (21-72) U/L Total Protein 5.8 L (6.3-8.2) g/dL Albumin 3.0 L (3.5-5.0) g/dL Procalcitonin (0.02-0.09) ng/mL Microbiology - Last 24 Hours (Table) 09/18/19 08:56 Blood Culture - Preliminary Blood No Growth after 48 hours 09/14/19 07:05 Blood Culture - Final Blood No Growth after 144 hours 09/18/19 10:15 Gram Stain - Final Sputum Sputum Culture - Final - Imaging and Cardiology Chest x-ray: report reviewed, image reviewed Assessment and Plan Assessment: 1. Triple-vessel calcified coronary artery disease, NSTEMI in this admission, status post urgent two-vessel bypass 2. Severe aortic valve stenosis, status post bioprosthetic aortic valve replacement 3. Mild to moderate tricuspid valve regurgitation 4. Hypertension 5. Hyperlipidemia 6. History of ITP status post splenectomy 7. Type 2 diabetes mellitus, hemoglobin A1c 6.6% 8. Morbid obesity 9. Previous tobacco dependence, moderate COPD with FEV1 54% of predicted 10. Postoperative lactic acidosis with metabolic acidosis, resolving 11. Postoperative thrombocytopenia, resolving 12. Postoperative hypotension, resolved 13. Postoperative hypernatremia, resolved 14. Postoperative acute blood loss anemia with postoperative bleeding, status post reoperation with sternal exploration and evacuation of clots 15. Postoperative transaminitis 16. Postoperative prolonged mechanical ventilation 17. Postoperative atrial fibrillation, currently in normal sinus rhythm Plan: 1. Continue to optimize medical management with full strength aspirin, plavix, statin and beta robin. Will increase metoprolol tartrate as tolerated. 2. Continue oral amiodarone and Cardizem PO 30mg every 8 hours for radial artery spasm prophylaxis. 3. Wean oxygen as tolerated. Encourage incentive spirometry as tolerated. Bronchodilators per pulmonology, no steroid based inhaler per pulmonary 4. Continue Lasix 40 mg IV twice a day. 5. Increase activity as tolerated, out of bed to chair for all meals. PT/OT /cardiac rehab following 6. Will monitor daily chest x-rays and labs. Electrolyte replacement per protocol. 7. Insulin management per primary care service. 8. Pain control per current medication regimen. Avoid opioids. 9. GI/DVT prophylaxis. Continue Arixtra. 10. Blood culture results showing no growth after 48 hours. Sputum culture final results showing many normal respiratory tessie. 11. Encourage use of incentive spirometry every hour while awake. 12. Anticipate discharge to [facility] on 09/22/2019. 13. Shower daily. Discharge instructions reviewed with the patient. 14. More recommendations to follow based on patient's clinical course. Time with Patient: Greater than 30
[2019-09-20 12:20] LABS: Glucose,Whole Blood 167 mg/dL (75-99)
[2019-09-20] MEDS: MAGNESIUM HYDROXIDE 2,400 MG/10 ML CUP PO PRN (14:14)
--- NOTE | 2019-09-20 15:10 | P.PN ---
Subjective Progress Note Date: 09/20/19 69 -year-old male who has a known history of coronary artery disease with history of a prior coronary artery bypass grafting procedure 19 years prior. He has a known history of aortic valve stenosis that apparently has now critically worse. 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 The patient relates too many symptoms including seeing a worm on his right leg the dorsum of the foot to the ankle which when he exposed to sunlight burned it up and it went away. He often feels like there are worms from his face going into his sinuses and he can feel a stinging sensation. Is an area on his back that itches chronically picks at it, he uses his thumb nail to take out chunks of flush to remove the difficulty. He did have a cyst on his right upper buttocks that he manipulated for quite some time and is now resolved. He also has some difficulties with some pick injury to his right face at the inferior orbital area He relates that he spends a lot of time outdoors, he is eating a lot of wild meets. He relates too many episodes when he was a child of exposures including once drinking water from the [employer] cow trough and it was found that there was a raccoon floating of the top of the tank that he had drank water from again when he was a child. He is concerned that he has some type of internal parasitic infection. Is also concerned about internal fungal infection through his whole system. As noted admission the patient was having difficulties with chest pain and shortness of breath dyspnea with exertion and poor exercise tolerance and episodes of syncope. He has been evaluated by cardiology as well as cardi ovascular surgery has been thought evidence of a critical aortic valve stenosis with need for surgical repair. He has been seen by the dentist without need for any specific surgical treatment before his aortic valve surgery. Dentist does not see evidence of oral fungal infection. 09/20/2019 the patient is now day 7 post aortic valve replacement, mitral valve repair in CABG and is doing relatively well. There was some postoperative bleeding that did require a reoperation. He is now out of intensive care unit sitting upright doing relatively well but there is concerns to his ongoing leukocytosis. At this time other than his ongoing shortness of breath relates he is feeling modestly well. He is requiring oxygen therapy. The patient denies fevers or chills. He does have a known history of prior ITP with splenectomy. Objective - Vital Signs Vital signs: Vital Signs Temp 98.6 F 09/20/19 11:42 Pulse 73 09/20/19 11:42 Resp 22 09/20/19 11:42 BP 111/67 09/20/19 11:42 Pulse Ox 99 09/20/19 11:42 Intake & Output 09/19/19 09/20/19 09/20/19 18:59 06:59 18:59 Intake Total 240 720 Output Total 251 650 Balance -251 -410 720 Weight 120.6 kg Intake: Oral 240 720 Output: Urine 250 650 Urine/Stool Mix 1 Other: Voiding Method Urinal Urinal Toilet # Voids 2 1 # Bowel Movements 1 ABP, PAP, CO, CI - Last Documented Arterial Blood Pressure 119/71 Pulmonary Artery Pressure 41/24 Cardiac Output 5.5 Cardiac Index 2.5 - Exam 7-year-old male who was obese but comfortable at this point in time. HEENT: Anicteric conjunctiva are pink and moist nasal mucosa grossly intact without significant lesions, there is no thrush. Neck: The neck is supple without significant lymphadenopathy or thyromegaly. Lungs: Symmetrical air entry is noted there are bibasilar crackles Heart: The prior holosystolic murmur is resolved Abdomen: Positive bowel sounds soft and nontender without palpable masses or organomegaly. There was no guarding or rebound. Extremities: The upper extremities have excellent pulses they are symmetric, no significant petechiae or telangiectasia. No splinter hemorrhages were noted. Blood sugars have evidence of some chronic edema but no snacking open ulcers are seen Neuro: Awake alert oriented to person place and time. There are no acute new gross focal sensory motor deficits. Skin: The patient is evidence of a few areas of chronic irritation There is no residual scarring onto the right foot where the worm was burned by the sunlight. The surgical wounds are healing well at this time without drainage - Labs CBC & Chem 7: 09/20/19 06:21 09/20/19 06:21 Labs: Abnormal Lab Results - Last 24 Hours (Table) 09/19/19 09/19/19 09/19/19 Range/Units 16:38 20:36 21:39 WBC (3.8-10.6) k/uL RBC (4.30-5.90) m/uL Hgb (13.0-17.5) gm/dL Hct (39.0-53.0) % RDW (11.5-15.5) % Neutrophils # (Manual) (1.3-7.7) k/uL Monocytes # (Manual) (0-1.0) k/uL Eosinophils # (Manual) (0-0.7) k/uL Nucleated RBCs (0-0) /100 WBC Carbon Dioxide (22-30) mmol/L BUN (9-20) mg/dL Glucose (74-99) mg/dL POC Glucose (mg/dL) 169 H 151 H 140 H (75-99) mg/dL Calcium (8.4-10.2) mg/dL ALT (21-72) U/L Total Protein (6.3-8.2) g/dL Albumin (3.5-5.0) g/dL 09/20/19 09/20/19 09/20/19 Range/Units 01:03 06:17 06:21 WBC 14.4 H (3.8-10.6) k/uL RBC 2.73 L (4.30-5.90) m/uL Hgb 8.7 L (13.0-17.5) gm/dL Hct 26.3 L (39.0-53.0) % RDW 17.5 H (11.5-15.5) % Neutrophils # (Manual) 9.65 H (1.3-7.7) k/uL Monocytes # (Manual) 1.15 H (0-1.0) k/uL Eosinophils # (Manual) 1.58 H (0-0.7) k/uL Nucleated RBCs 1 H (0-0) /100 WBC Carbon Dioxide (22-30) mmol/L BUN (9-20) mg/dL Glucose (74-99) mg/dL POC Glucose (mg/dL) 143 H 142 H (75-99) mg/dL Calcium (8.4-10.2) mg/dL ALT (21-72) U/L Total Protein (6.3-8.2) g/dL Albumin (3.5-5.0) g/dL 09/20/19 09/20/19 Range/Units 06:21 12:04 WBC (3.8-10.6) k/uL RBC (4.30-5.90) m/uL Hgb (13.0-17.5) gm/dL Hct (39.0-53.0) % RDW (11.5-15.5) % Neutrophils # (Manual) (1.3-7.7) k/uL Monocytes # (Manual) (0-1.0) k/uL Eosinophils # (Manual) (0-0.7) k/uL Nucleated RBCs (0-0) /100 WBC Carbon Dioxide 33 H (22-30) mmol/L BUN 36 H (9-20) mg/dL Glucose 133 H (74-99) mg/dL POC Glucose (mg/dL) 167 H (75-99) mg/dL Calcium 8.1 L (8.4-10.2) mg/dL ALT 101 H (21-72) U/L Total Protein 5.8 L (6.3-8.2) g/dL Albumin 3.0 L (3.5-5.0) g/dL Microbiology - Last 24 Hours (Table) 09/18/19 08:56 Blood Culture - Preliminary Blood No Growth after 48 hours 09/14/19 07:05 Blood Culture - Final Blood No Growth after 144 hours 09/18/19 10:15 Gram Stain - Final Sputum Sputum Culture - Final Laboratory Results WBC 14.4 k/uL (3.8-10.6) H 09/20/19 06:21 RBC 2.73 m/uL (4.30-5.90) L 09/20/19 06:21 Hgb 8.7 gm/dL (13.0-17.5) L 09/20/19 06:21 Hct 26.3 % (39.0-53.0) L 09/20/19 06:21 MCV 96.4 fL (80.0-100.0) 09/20/19 06:21 MCH 31.9 pg (25.0-35.0) 09/20/19 06:21 MCHC 33.1 g/dL (31.0-37.0) 09/20/19 06:21 RDW 17.5 % (11.5-15.5) H 09/20/19 06:21 Plt Count 347 k/uL (150-450) 09/20/19 06:21 Neutrophils % 79 % 09/14/19 09:00 Neutrophils % (Manual) 67 % 09/20/19 06:21 Band Neutrophils % 5 % 09/19/19 04:55 Lymphocytes % 10 % 09/14/19 09:00 Lymphocytes % (Manual) 14 % 09/20/19 06:21 Monocytes % 8 % 09/14/19 09:00 Monocytes % (Manual) 8 % 09/20/19 06:21 Eosinophils % 2 % 09/14/19 09:00 Eosinophils % (Manual) 11 % 09/20/19 06:21 Basophils % 1 % 09/14/19 09:00 Basophils % (Manual) 1 % 09/16/19 06:00 Metamyelocytes % 1 % 09/19/19 04:55 Myelocytes % 1 % 09/17/19 04:05 Neutrophils # 12.3 k/uL (1.3-7.7) H 09/14/19 09:00 Neutrophils # (Manual) 9.65 k/uL (1.3-7.7) H 09/20/19 06:21 Lymphocytes # 1.5 k/uL (1.0-4.8) 09/14/19 09:00 Lymphocytes # (Manual) 2.02 k/uL (1.0-4.8) 09/20/19 06:21 Monocytes # 1.2 k/uL (0-1.0) H 09/14/19 09:00 Monocytes # (Manual) 1.15 k/uL (0-1.0) H 09/20/19 06:21 Eosinophils # 0.3 k/uL (0-0.7) 09/14/19 09:00 Eosinophils # (Manual) 1.58 k/uL (0-0.7) H 09/20/19 06:21 Basophils # 0.1 k/uL (0-0.2) 09/14/19 09:00 Basophils # (Manual) 0.17 k/uL (0-0.2) 09/16/19 06:00 Metamyelocytes # (Man) 0.15 k/uL (0) H 09/19/19 04:55 Myelocytes # (Manual) 0.16 k/uL (0) H 09/17/19 04:05 Nucleated RBCs 1 /100 WBC (0-0) H 09/20/19 06:21 Manual Slide Review Performed 09/20/19 06:21 Large Platelets Present 09/20/19 06:21 Polychromasia Present 09/20/19 06:21 Hypochromasia Slight 09/20/19 06:21 Hypochromasia (manual) Present 09/14/19 09:00 Poikilocytosis Slight 09/20/19 06:21 Poikilocytosis (manual Present 09/14/19 09:00 Anisocytosis Slight 09/20/19 06:21 Anisocytosis (manual) Present 09/14/19 09:00 Macrocytosis Slight 09/20/19 06:21 PT 11.8 sec (9.0-12.0) 09/13/19 10:15 INR 1.1 (<1.2) 09/13/19 10:15 APTT 26.3 sec (22.0-30.0) 09/13/19 10:15 Fibrinogen 200 mg/dL (200-500) 09/12/19 Unknown D-Dimer 0.32 mg/L FEU (<0.60) 09/07/19 10:12 Sample Site [place] 09/15/19 08:05 ABG pH 7.43 (7.35-7.45) 09/15/19 08:05 ABG pCO2 47 mmHg (35-45) H 09/15/19 08:05 ABG pO2 107 mmHg (83-108) 09/15/19 08:05 ABG HCO3 31 mmol/L (21-25) H 09/15/19 08:05 ABG Total CO2 32 mmol/L (19-24) H 09/15/19 08:05 ABG O2 Saturation 98.2 % (94-97) H 09/15/19 08:05 ABG Base Excess 6.5 mmol/L 09/15/19 08:05 ABG Hematocrit 24 % (34.0-46.0) L 09/13/19 05:04 [place] Test Yes 09/15/19 08:05 ABG Sodium 154 mmol/L (135-146) H 09/13/19 05:04 ABG Potassium 4.2 mmol/L (3.4-4.5) 09/13/19 05:04 ABG Ionized Calcium 4.2 mg/dL (4.5-5.3) L 09/13/19 05:04 ABG Glucose 181 mg/dL (75-99) H 09/13/19 05:04 ABG Lactic Acid 2.3 mmol/L (0.5-1.6) H* 09/14/19 14:00 Hemoglobin 7.7 gm/dL (13.0-17.5) L 09/13/19 05:04 FiO2 40 % 09/15/19 08:05 Sodium 145 mmol/L (137-145) 09/20/19 06:21 Potassium 4.2 mmol/L (3.5-5.1) 09/20/19 06:21 Chloride 104 mmol/L (98-107) 09/20/19 06:21 Carbon Dioxide 33 mmol/L (22-30) H 09/20/19 06:21 Anion Gap 8 mmol/L 09/20/19 06:21 BUN 36 mg/dL (9-20) H 09/20/19 06:21 Creatinine 0.85 mg/dL (0.66-1.25) 09/20/19 06:21 Est GFR (CKD-EPI)AfAm >90 (>60 ml/min/1.73 sqM) 09/20/19 06:21 Est GFR (CKD-EPI)NonAf 90 (>60 ml/min/1.73 sqM) 09/20/19 06:21 Glucose 133 mg/dL (74-99) H 09/20/19 06:21 POC Glucose (mg/dL) 167 mg/dL (75-99) H 09/20/19 12:04 POC Glu [employer] Manager ID Matthias Trevino 09/20/19 12:[address] Glu mg/dL 143 09/10/19 06:29 Hemoglobin A1c 6.6 % (4.0-6.0) H 09/10/19 06:29 Lactic Ac Sepsis Rflx Y 09/14/19 14:16 Plasma Lactic Acid [place] 1.7 mmol/L (0.7-2.0) 09/14/19 18:25 Calcium 8.1 mg/dL (8.4-10.2) L 09/20/19 06:21 Ionized Calcium [place] 4.6 mg/dL (4.5-5.3) 09/17/19 04:05 Magnesium 2.4 mg/dL (1.6-2.3) H 09/17/19 04:05 Total Bilirubin 1.2 mg/dL (0.2-1.3) 09/20/19 06:21 AST 38 U/L (17-59) 09/20/19 06:21 ALT 101 U/L (21-72) H 09/20/19 06:21 Alkaline Phosphatase 117 U/L (38-126) 09/20/19 06:21 Troponin I 0.040 ng/mL (0.000-0.034) H* 09/06/19 20:52 Total Protein 5.8 g/dL (6.3-8.2) L 09/20/19 06:21 Albumin 3.0 g/dL (3.5-5.0) L 09/20/19 06:21 Triglycerides 131 mg/dL (<150) 09/07/19 04:37 Cholesterol 203 mg/dL (<200) H 09/07/19 04:37 LDL Cholesterol, Calc 103 mg/dL (0-99) H 09/07/19 04:37 HDL Cholesterol 74 mg/dL (40-60) H 09/07/19 04:37 Procalcitonin 0.80 ng/mL (0.02-0.09) H 09/18/19 08:05 TSH 0.992 mIU/L (0.465-4.680) 09/10/19 06:29 Arterial Blood Potassium 4.2 mmol/L (3.4-4.5) 09/13/19 05:04 Arterial Blood Glucose 181 mg/dL (75-99) H 09/13/19 05:04 Urine Color Light Red 09/14/19 07:05 Urine Appearance Cloudy (Clear) 09/14/19 07:05 Urine pH 7.0 (5.0-8.0) 09/14/19 07:05 Ur Specific [place] 1.027 (1.001-1.035) 09/14/19 07:05 Urine Protein 1+ (Negative) H 09/14/19 07:05 Urine Glucose (UA) Negative (Negative) 09/14/19 07:05 Urine Ketones Negative (Negative) 09/14/19 07:05 Urine Blood Moderate (Negative) H 09/14/19 07:05 Urine Nitrite Negative (Negative) 09/14/19 07:05 Urine Bilirubin Negative (Negative) 09/14/19 07:05 Urine Urobilinogen <2.0 mg/dL (<2.0) 09/14/19 07:05 Ur Leukocyte Esterase Negative (Negative) 09/14/19 07:05 Urine RBC 81 /hpf (0-5) H 09/14/19 07:05 Urine WBC 42 /hpf (0-5) H 09/14/19 07:05 Urine WBC Clumps Many /hpf (None) H 09/14/19 07:05 Urine Bacteria Rare /hpf (None) H 09/14/19 07:05 Urine Mucus Rare /hpf (None) H 09/14/19 07:05 Hepatitis A IgM Ab Non-Reactive (Non-Reactive) 09/10/19 06:29 Hep Bs Antigen Non-Reactive (Non-Reactive) 09/10/19 06:29 Hep B Core IgM Ab Non-Reactive (Non-Reactive) 09/10/19 06:29 Hep C IgG Ab Non-Reactive (Non-Reactive) 09/10/19 06:29 Blood Type A Positive 09/11/19 11:31 Blood Type Recheck A Pos 09/11/19 11:31 Bld Type Recheck Status No 09/11/19 11:31 Antibody Screen NEGATIVE 09/11/19 11:31 Crossmatch See Detail 09/11/19 11:31 Transfuse Cryo 09/13/2019 09/13/19 03:15 Transfuse Plasma 09/13/2019 09/13/19 01:50 Transfuse Platelets 09/13/19 09/13/19 05:50 Spec Expiration Date 09/14/2019 - 233009/11/19 11:31 Microbiology 09/18/19 08:56 Blood Blood Culture - Preliminary No Growth after 48 hours 09/14/19 07:05 Blood Blood Culture - Final No Growth after 144 hours 09/18/19 10:15 Sputum Gram Stain - Final 09/18/19 10:15 Sputum Sputum Culture - Final 09/14/19 00:17 Sputum Gram Stain - Final 09/14/19 00:17 Sputum Sputum Culture - Final 09/14/19 07:05 Urine,Voided Urine Culture - Final 09/10/19 08:20 Nasal Swab Nasal Screen MRSA/MSSA - Final Assessment and Plan (1) Delusion of infestation Current Visit: Yes Status: Acute Code(s): F22 - DELUSIONAL DISORDERS SNOMED Code(s): 566286246 (2) Severe aortic stenosis Narrative/Plan: 69-year-old male presented hospital with syncope but evidence of significant worsening of his aortic stenosis is now status post the aortic valve replacement, mitral valve repair and CABG. He did have a redo procedure because of some bleeding. He's been having ongoing improvements except he does have some residual shortness of breath that seems to be improving but slowly. There is a notation of the leukocytosis. It has varied between 19 and 14.4 today. Review of old data shows that is not unusual and white count of 12.3 in his postsplenectomy state. He is without fevers or other acute evidence of infla mmation at this time and will continue to monitor. Is on his computed tomography scan he does have some splenule's which will give him some immune function. Current Visit: Yes Status: Acute Code(s): I35.0 - NONRHEUMATIC AORTIC (VALVE) STENOSIS SNOMED Code(s): 79391473
--- NOTE | 2019-09-20 15:37 | P.PN ---
Subjective Progress Note Date: 09/20/19 On today's evaluation of 09/20/2019 I'm seeing the patient for a follow-up. Is sitting up on a chair. He is calm and comfortable. No cervical respiratory distress. He is complaining of overall weakness. No nausea or vomiting. He is on 2 L of oxygen by nasal cannula. Pulse oximetry 98%. He continues to use incentive spirometer and he is pulling approximately 1500. His current white cell count is down to 14.5. He is postop day #8.. The chest x-ray showing improvement in interstitial edema in the right basilar opacity. There is ongoing cardiomegaly for now. White cell count is down to 14.4. He is still on Lasix 40 mg IV every 12 hours. Objective - Vital Signs Vital signs: Vital Signs Temp 98.6 F 09/20/19 11:42 Pulse 73 09/20/19 11:42 Resp 22 09/20/19 11:42 BP 111/67 09/20/19 11:42 Pulse Ox 99 09/20/19 11:42 Intake & Output 09/19/19 09/20/19 09/20/19 18:59 06:59 18:59 Intake Total 240 720 Output Total 251 650 Balance -251 -410 720 Weight 120.6 kg Intake: Oral 240 720 Output: Urine 250 650 Urine/Stool Mix 1 Other: Voiding Method Urinal Urinal Toilet # Voids 2 1 # Bowel Movements 1 ABP, PAP, CO, CI - Last Documented Arterial Blood Pressure 119/71 Pulmonary Artery Pressure 41/24 Cardiac Output 5.5 Cardiac Index 2.5 - Exam - Constitutional General appearance: Present: cooperative, no acute distress, obese - Respiratory Details: Lung sounds diminished bilaterally with crackles in the bases. Respirations even, non-labored. Currently on 2L NC with oxygen saturation 96%. Chest tubes have been removed and the exit site is dry clean and intact. - Cardiovascular Details: S1, S2 present. Regular rate and rhythm, sinus rhythm on telemetry. Sternum stable. - Gastrointestinal Gastrointestinal Comment(s): Abdomen soft, non-tender, non-distended, obese. Active bowel sounds present x 4 quadrants. Tolerating ice chips, clear liquids. Denies flatus, positive nausea. - Genitourinary Genitourinary Comment(s): [place] present draining cloudy, yellow urine. Urine output 50 mL per hour overnight. - Integumentary Integumentary Comment(s): Skin is warm and dry. Anterior chest incision well approximated covered with dry intact dressing. Left radial artery harvest site well approximated, good cap refill, pt denies numbness/tingling, able to move fingers. Left lower extremity EVH site well approximated - Neurologic Neurologic: Present: CNII-XII intact - Musculoskeletal Musculoskeletal: Present: generalized weakness, strength equal bilaterally - Psychiatric Psychiatric: Present: A&O x's 3, appropriate affect, intact judgment & insight - Labs CBC & Chem 7: 09/20/19 06:21 09/20/19 06:21 Labs: Abnormal Lab Results - Last 24 Hours (Table) 09/19/19 09/19/19 09/19/19 Range/Units 16:38 20:36 21:39 WBC (3.8-10.6) k/uL RBC (4.30-5.90) m/uL Hgb (13.0-17.5) gm/dL Hct (39.0-53.0) % RDW (11.5-15.5) % Neutrophils # (Manual) (1.3-7.7) k/uL Monocytes # (Manual) (0-1.0) k/uL Eosinophils # (Manual) (0-0.7) k/uL Nucleated RBCs (0-0) /100 WBC Carbon Dioxide (22-30) mmol/L BUN (9-20) mg/dL Glucose (74-99) mg/dL POC Glucose (mg/dL) 169 H 151 H 140 H (75-99) mg/dL Calcium (8.4-10.2) mg/dL ALT (21-72) U/L Total Protein (6.3-8.2) g/dL Albumin (3.5-5.0) g/dL 09/20/19 09/20/19 09/20/19 Range/Units 01:03 06:17 06:21 WBC 14.4 H (3.8-10.6) k/uL RBC 2.73 L (4.30-5.90) m/uL Hgb 8.7 L (13.0-17.5) gm/dL Hct 26.3 L (39.0-53.0) % RDW 17.5 H (11.5-15.5) % Neutrophils # (Manual) 9.65 H (1.3-7.7) k/uL Monocytes # (Manual) 1.15 H (0-1.0) k/uL Eosinophils # (Manual) 1.58 H (0-0.7) k/uL Nucleated RBCs 1 H (0-0) /100 WBC Carbon Dioxide (22-30) mmol/L BUN (9-20) mg/dL Glucose (74-99) mg/dL POC Glucose (mg/dL) 143 H 142 H (75-99) mg/dL Calcium (8.4-10.2) mg/dL ALT (21-72) U/L Total Protein (6.3-8.2) g/dL Albumin (3.5-5.0) g/dL 09/20/19 09/20/19 Range/Units 06:21 12:04 WBC (3.8-10.6) k/uL RBC (4.30-5.90) m/uL Hgb (13.0-17.5) gm/dL Hct (39.0-53.0) % RDW (11.5-15.5) % Neutrophils # (Manual) (1.3-7.7) k/uL Monocytes # (Manual) (0-1.0) k/uL Eosinophils # (Manual) (0-0.7) k/uL Nucleated RBCs (0-0) /100 WBC Carbon Dioxide 33 H (22-30) mmol/L BUN 36 H (9-20) mg/dL Glucose 133 H (74-99) mg/dL POC Glucose (mg/dL) 167 H (75-99) mg/dL Calcium 8.1 L (8.4-10.2) mg/dL ALT 101 H (21-72) U/L Total Protein 5.8 L (6.3-8.2) g/dL Albumin 3.0 L (3.5-5.0) g/dL Microbiology - Last 24 Hours (Table) 09/18/19 08:56 Blood Culture - Preliminary Blood No Growth after 48 hours 09/14/19 07:05 Blood Culture - Final Blood No Growth after 144 hours 09/18/19 10:15 Gram Stain - Final Sputum Sputum Culture - Final Assessment and Plan Plan: 1 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 Postop day #8 2 coronary valve stenosis post aortic valve with a bioprostheticvalve. Postop day #8 3 bleeding postoperatively, multifactorial including consumptive thrombocytopenia and the patient required a total of 7 units of packed RBCs, 5 units of fresh frozen plasma, 2 units of platelets and 2 units of c ryoprecipitate. The hemoglobin is at 8.7 4. Shock related to above with bleeding and tamponade physiology, post reexploration and evacuation of blood clots around the pericardium, recovered and output from the chest tube is currently minimal for now. 5 history of ITP postsplenectomy. Platelet counts are stable, improving on Arixtra 6 diabetes mellitus currently on insulin sliding scale coverage 7 obesity 8 obstructive sleep apnea not utilizing any form of CPAP therapy on outpatient basis due to poor tolerability currently off BiPAP and currently on 3 L by nasal cannula 9 acute hypoxic respiratory failure, expected outcome of surgery, improving and currently on 2 L of oxygen by nasal cannula 10 bilateral pleural effusions, expected outcome of surgery, improving 11 blood loss anemia, acute, postop, expected outcome of surgery, stable 12 paroxysmal atrial fibrillation alternating with sinus rhythm 13 leukocytosis, improving, infection is doubtful at age Plan Continue same treatment for now. Chest x-ray reviewed. Hemoglobin is stable. White cell count is. Clinically stable..
[2019-09-20 16:53] LABS: Glucose,Whole Blood 176 mg/dL (75-99)
--- NOTE | 2019-09-20 17:08 | P.PN ---
Subjective Progress Note Date: 09/20/19 Principal diagnosis: Severe aortic stenosis status post CABG and aortic wall replacement Mr. Nelson is a 69-year-old male with a past medical history of coronary artery disease status post CABG, aortic stenosis, type 2 diabetes mellitus, hyperlipidemia, obstructive sleep apnea on CPAP coming to the hospital with a chief complaint of syncope. Patient underwent cardiac catheterization and DAMARI was found to have severe aortic stenosis. Patient had coronary artery bypass grafting along with aortic wall replacement on 09/12/2019. Postop patient had bleeding in the retrocardiac area so he was taken again for evacuation of the clots. Patient received multiple blood products during the procedure. He had a very rough postoperative recovery. On 09/20/2019: Patient is post op day #8. Sitting up in a chair by the bedside. He still complains of difficulty in breathing and lower extremity edema. No significant issues reported by nursing staff overnight. Patient had a chest x- ray showing improvement in the interstitial edema and the right basilar opacity. Patient denies having any fevers chills or rigors. No complaints of chest pain or palpitations. No abdominal pain nausea vomiting or diarrhea. Patient had a bowel movement yesterday. No dysuria or hematuria. Patient's medications and labs have been reviewed. Active Medications Acetaminophen (Tylenol Tab) 1,000 mg PO Q6HR PRN PRN Reason: Fever and/ or Pain Last Admin: 09/17/19 21:45 Dose: 1,000 mg Documented by: Albuterol/Ipratropium (Duoneb 0.5 Mg-3 Mg/3 Ml Soln) 3 ml INHALATION RT-Q2H PRN PRN Reason: Shortness Of Breath Or Wheezing Albuterol/Ipratropium (Duoneb 0.5 Mg-3 Mg/3 Ml Soln) 3 ml INHALATION RT-QID [facility] Last Admin: 09/20/19 15:29 Dose: Not Given Documented by: Amiodarone HCl (Cordarone) 200 mg PO BID [facility] Ascorbic Acid (Vitamin C) 500 mg PO BID-W/MEALS [facility] Last Admin: 09/20/19 06:29 Dose: 500 mg Documented by: Aspirin (Aspirin) 325 mg PO DAILY [facility] Last Admin: 09/20/19 08:48 Dose: 325 mg Documented by: Atorvastatin Calcium (Lipitor) 40 mg PO HS [facility] Last Admin: 09/19/19 22:05 Dose: 40 mg Documented by: Benzocaine/Menthol (Cepacol Lozenge) 1 each MUCOUS MEM Q2H PRN PRN Reason: Sore Throat Clopidogrel Bisulfate (Plavix) 75 mg PO DAILY [facility] Last Admin: 09/20/19 08:48 Dose: 75 mg Documented by: Diltiazem HCl (Cardizem Oral) 30 mg PO Q8HR [facility] Last Admin: 09/20/19 15:42 Dose: 30 mg Documented by: Ferrous Sulfate (Feosol) 325 mg PO BID-W/MEALS [facility] Last Admin: 09/20/19 06:29 Dose: 325 mg Documented by: Fondaparinux (Arixtra) 2.5 mg SQ DAILY [facility] Last Admin: 09/20/19 08:49 Dose: 2.5 mg Documented by: Furosemide (Lasix) 40 mg IV BID [facility] Last Admin: 09/20/19 08:49 Dose: 40 mg Documented by: Amiodarone HCl 150 mg/ (Dextrose/Water) 103 mls @ 618 mls/hr IV .Q10M PRN; Protocol PRN Reason: A.FIB/FLUTTER Last Admin: 09/14/19 16:50 Dose: 618 mls/hr Documented by: Insulin Aspart (Novolog) 0 unit SQ [id number] [facility]; Protocol Last Admin: 09/20/19 12:16 Dose: 2 unit Documented by: Ketorolac Tromethamine (Toradol) 15 mg IVP Q6H [facility] Stop: 09/21/19 15:01 Last Admin: 09/20/19 15:41 Dose: 15 mg Documented by: Magnesium Hydroxide (Milk Of Magnesia) 2,400 mg PO DAILY PRN PRN Reason: Constipation Last Admin: 09/20/19 14:14 Dose: 2,400 mg Documented by: Metoclopramide HCl (Reglan) 10 mg IVP Q4H PRN PRN Reason: Nausea And Vomiting Metoprolol Tartrate (Lopressor) 25 mg PO BID [facility] Last Admin: 09/20/19 08:49 Dose: 25 mg Documented by: Miscellaneous Information (Potassium Per Protocol) 1 each MISCELLANE DAILY PRN; Protocol PRN Reason: Per Protocol Miscellaneous Information (Magnesium Per Protocol) 1 each MISCELLANE DAILY PRN; Protocol PRN Reason: Per Protocol Miscellaneous Information (Phosphorus Per Protocol) 1 each MISCELLANE DAILY PRN; Protocol PRN Reason: Per Protocol Ondansetron HCl (Zofran) 4 mg IVP Q6HR PRN PRN Reason: Nausea And Vomiting Last Admin: 09/17/19 19:22 Dose: 4 mg Documented by: Pantoprazole Sodium (Protonix) 40 mg PO AC-BRKFST [facility] Last Admin: 09/19/19 06:38 Dose: 40 mg Documented by: Senna/Docusate Sodium (Senokot-S) 2 each PO HS [facility] Last Admin: 09/19/19 22:05 Dose: 2 each Documented by: Sodium Chloride (Saline Flush) 10 ml IV BID [facility] Last Admin: 09/20/19 08:53 Dose: 10 ml Documented by: Objective - Vital Signs Vital signs: Vital Signs Temp 98.6 F 09/20/19 15:48 Pulse 89 09/20/19 15:48 Resp 22 09/20/19 16:00 BP 119/67 09/20/19 15:48 Pulse Ox 98 09/20/19 15:48 Intake & Output 09/19/19 09/20/19 09/20/19 18:59 06:59 18:59 Intake Total 240 720 Output Total 251 650 Balance -251 -410 720 Weight 120.6 kg Intake: Oral 240 720 Output: Urine 250 650 Urine/Stool Mix 1 Other: Voiding Method Urinal Urinal Toilet # Voids 2 1 # Bowel Movements 1 ABP, PAP, CO, CI - Last Documented Arterial Blood Pressure 119/71 Pulmonary Artery Pressure 41/24 Cardiac Output 5.5 Cardiac Index 2.5 - Exam GEN. APPEARANCE: alert, in no apparent distress HEENT : No pallor. No icterus. Pupils equal and round and reactive to light. No thyromegaly. RESPIRATORY EXAM: normal lung sounds bilaterally. Few crackles at the lower lung bases. CARDIOVASCULAR EXAM: regular rate, normal rhythm, normal heart sounds. Grade 3 systolic murmur, loudest at aortic area. GI/ABDOMINAL EXAM: soft, normal bowel sounds. Nontender. No guarding or rigidity. EXTREMITIES EXAM: Pitting edema bilaterally. NEUROLOGICAL EXAM: alert, oriented X3, no focal deficits. - Labs CBC & Chem 7: 09/20/19 06:21 09/20/19 06:21 Labs: Abnormal Lab Results - Last 24 Hours (Table) 09/19/19 09/19/19 09/20/19 Range/Units 20:36 21:39 01:03 WBC (3.8-10.6) k/uL RBC (4.30-5.90) m/uL Hgb (13.0-17.5) gm/dL Hct (39.0-53.0) % RDW (11.5-15.5) % Neutrophils # (Manual) (1.3-7.7) k/uL Monocytes # (Manual) (0-1.0) k/uL Eosinophils # (Manual) (0-0.7) k/uL Nucleated RBCs (0-0) /100 WBC Carbon Dioxide (22-30) mmol/L BUN (9-20) mg/dL Glucose (74-99) mg/dL POC Glucose (mg/dL) 151 H 140 H 143 H (75-99) mg/dL Calcium (8.4-10.2) mg/dL ALT (21-72) U/L Total Protein (6.3-8.2) g/dL Albumin (3.5-5.0) g/dL 09/20/19 09/20/19 09/20/19 Range/Units 06:17 06:21 06:21 WBC 14.4 H (3.8-10.6) k/uL RBC 2.73 L (4.30-5.90) m/uL Hgb 8.7 L (13.0-17.5) gm/dL Hct 26.3 L (39.0-53.0) % RDW 17.5 H (11.5-15.5) % Neutrophils # (Manual) 9.65 H (1.3-7.7) k/uL Monocytes # (Manual) 1.15 H (0-1.0) k/uL Eosinophils # (Manual) 1.58 H (0-0.7) k/uL Nucleated RBCs 1 H (0-0) /100 WBC Carbon Dioxide 33 H (22-30) mmol/L BUN 36 H (9-20) mg/dL Glucose 133 H (74-99) mg/dL POC Glucose (mg/dL) 142 H (75-99) mg/dL Calcium 8.1 L (8.4-10.2) mg/dL ALT 101 H (21-72) U/L Total Protein 5.8 L (6.3-8.2) g/dL Albumin 3.0 L (3.5-5.0) g/dL 09/20/19 09/20/19 Range/Units 12:04 16:47 WBC (3.8-10.6) k/uL RBC (4.30-5.90) m/uL Hgb (13.0-17.5) gm/dL Hct (39.0-53.0) % RDW (11.5-15.5) % Neutrophils # (Manual) (1.3-7.7) k/uL Monocytes # (Manual) (0-1.0) k/uL Eosinophils # (Manual) (0-0.7) k/uL Nucleated RBCs (0-0) /100 WBC Carbon Dioxide (22-30) mmol/L BUN (9-20) mg/dL Glucose (74-99) mg/dL POC Glucose (mg/dL) 167 H 176 H (75-99) mg/dL Calcium (8.4-10.2) mg/dL ALT (21-72) U/L Total Protein (6.3-8.2) g/dL Albumin (3.5-5.0) g/dL Microbiology - Last 24 Hours (Table) 09/18/19 08:56 Blood Culture - Preliminary Blood No Growth after 48 hours 09/14/19 07:05 Blood Culture - Final Blood No Growth after 144 hours 09/18/19 10:15 Gram Stain - Final Sputum Sputum Culture - Final Assessment and Plan Assessment: ASSESSMENT Severe aortic stenosis status post CABG and bioprosthetic wall replacement - postop day #8 Non-ST elevation ND Severe aortic stenosis Mild to moderate tricuspid regurgitation Postoperative bleeding status post exploration and evacuation of blood clots History of idiopathic thrombocytopenic purpura Respiratory failure postoperatively patient - resolved Bilateral pleural effusions Proximal A. fib on amiodarone Postoperative shock Coronary artery disease status post CABG Type 2 diabetes mellitus Hypertension Hyperlipidemia Obstructive sleep apnea on CPAP PLAN: Patient's chest x-ray showed improvement in interstitial edema. Continue with the current medication regimen. Further recommendations to follow depending on the progress of the patient.
[2019-09-20 19:48] LABS: Glucose,Whole Blood 205 mg/dL (75-99)
--- NOTE | 2019-09-20 19:48 | P.PN ---
Subjective Progress Note Date: 09/20/19 Principal diagnosis: history of ITP Very pleasant 69-year-old gentleman with a past medical history of coronary artery bypass grafting, aortic stenosis, diabetes, hyperlipidemia, obstructive sleep apnea currently admitted with syncopal episode underwent cardiac catheterization and DAMARI and was found to have severe aortic stenosis. We have been consulted for history of ITP. Currently he is postop and doing well no new issues stable. We have been asked to follow along with pt for Hx of ITP, treated with splencectomy quite a few years ago, no recurrent episodes of ITP. Pt is s/p aortic valve replacement and CABG. No bleeding. Objective - Vital Signs Vital signs: Vital Signs Temp 98.6 F 09/20/19 15:48 Pulse 89 09/20/19 15:48 Resp 22 09/20/19 16:00 BP 119/67 09/20/19 15:48 Pulse Ox 98 09/20/19 15:48 Intake & Output 09/20/19 09/20/19 09/21/19 06:59 18:59 06:59 Intake Total 240 960 Output Total 650 Balance -410 960 Weight 120.6 kg Intake: Oral 240 960 Output: Urine 650 Other: Voiding Method Urinal Toilet # Voids 1 ABP, PAP, CO, CI - Last Documented Arterial Blood Pressure 119/71 Pulmonary Artery Pressure 41/24 Cardiac Output 5.5 Cardiac Index 2.5 - Exam The patient appeared well nourished and normally developed. Vital signs as documented. Head exam is unremarkable. No scleral icterus or corneal arcus noted. Neck is without jugular venous distension, thyromegaly, or carotid bruits. Carotid upstrokes are brisk bilaterally. Lungs are clear to auscultation and percussion. Cardiac exam reveals the PMI to be normally sized and situated. Rhythm is regular. First and second heart sounds normal. No murmurs, rubs or gallops. Abdominal exam reveals normal bowel sounds, no masses, no organomegaly and no aortic enlargement. Extremities are nonedematous and both femoral and pedal pulses are normal. - Labs CBC & Chem 7: 09/20/19 06:21 09/20/19 06:21 Labs: Abnormal Lab Results - Last 24 Hours (Table) 09/19/19 09/19/19 09/20/19 Range/Units 20:36 21:39 01:03 WBC (3.8-10.6) k/uL RBC (4.30-5.90) m/uL Hgb (13.0-17.5) gm/dL Hct (39.0-53.0) % RDW (11.5-15.5) % Neutrophils # (Manual) (1.3-7.7) k/uL Monocytes # (Manual) (0-1.0) k/uL Eosinophils # (Manual) (0-0.7) k/uL Nucleated RBCs (0-0) /100 WBC Carbon Dioxide (22-30) mmol/L BUN (9-20) mg/dL Glucose (74-99) mg/dL POC Glucose (mg/dL) 151 H 140 H 143 H (75-99) mg/dL Calcium (8.4-10.2) mg/dL ALT (21-72) U/L Total Protein (6.3-8.2) g/dL Albumin (3.5-5.0) g/dL 09/20/19 09/20/19 09/20/19 Range/Units 06:17 06:21 06:21 WBC 14.4 H (3.8-10.6) k/uL RBC 2.73 L (4.30-5.90) m/uL Hgb 8.7 L (13.0-17.5) gm/dL Hct 26.3 L (39.0-53.0) % RDW 17.5 H (11.5-15.5) % Neutrophils # (Manual) 9.65 H (1.3-7.7) k/uL Monocytes # (Manual) 1.15 H (0-1.0) k/uL Eosinophils # (Manual) 1.58 H (0-0.7) k/uL Nucleated RBCs 1 H (0-0) /100 WBC Carbon Dioxide 33 H (22-30) mmol/L BUN 36 H (9-20) mg/dL Glucose 133 H (74-99) mg/dL POC Glucose (mg/dL) 142 H (75-99) mg/dL Calcium 8.1 L (8.4-10.2) mg/dL ALT 101 H (21-72) U/L Total Protein 5.8 L (6.3-8.2) g/dL Albumin 3.0 L (3.5-5.0) g/dL 09/20/19 09/20/19 Range/Units 12:04 16:47 WBC (3.8-10.6) k/uL RBC (4.30-5.90) m/uL Hgb (13.0-17.5) gm/dL Hct (39.0-53.0) % RDW (11.5-15.5) % Neutrophils # (Manual) (1.3-7.7) k/uL Monocytes # (Manual) (0-1.0) k/uL Eosinophils # (Manual) (0-0.7) k/uL Nucleated RBCs (0-0) /100 WBC Carbon Dioxide (22-30) mmol/L BUN (9-20) mg/dL Glucose (74-99) mg/dL POC Glucose (mg/dL) 167 H 176 H (75-99) mg/dL Calcium (8.4-10.2) mg/dL ALT (21-72) U/L Total Protein (6.3-8.2) g/dL Albumin (3.5-5.0) g/dL Microbiology - Last 24 Hours (Table) 09/18/19 08:56 Blood Culture - Preliminary Blood No Growth after 48 hours 09/14/19 07:05 Blood Culture - Final Blood No Growth after 144 hours 09/18/19 10:15 Gram Stain - Final Sputum Sputum Culture - Final Assessment and Plan Assessment: impression and plan: 1. 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 Now recovered. Antiplatelet therapy, DVT prophylaxis, transfuse to keep platelets >50,000 - current platelet number of stable, no evidence of bleeding, post surgery - Continue monitoring. 2. Anemia, normocytic: - Multifactorial, status post surgery, blood loss anemia, - Current hemoglobin 8.7. - Evaluate for deficiencies, check iron B12 folate, check value hemolysis check LDH heptoglobin. - Continue ferrous sulfate,add folic acid. 3. reactive leukocytosis 4. Severe aortic stenosis status post bioprosthetic wall replacement. 5. Respiratory distress, bilateral pleural effusions. 6. Elevated liver enzymes 7. History of diabetes, hypertension, hyperlipidemia, obstructive sleep apnea. Patient on Arixtra2.5 mg subcutaneous daily. Thank you for allowing me to participate in the care of your patient. Shade Haywood MD Early Childhood Educator Aide, [facility] Hematology Oncology [id number], [address] [place] [address] Office: [phone]
[2019-09-20] MEDS: ATORVASTATIN 40 MG TAB PO SCH (19:51)
[2019-09-20] MEDS: SENNOSIDES-DOCUSATE SODIUM 1 EACH TAB PO SCH (19:51)
[2019-09-20] MEDS: ACETAMINOPHEN TAB 500 MG TAB PO PRN (19:53)
[2019-09-21 00:58] LABS: Glucose,Whole Blood 134 mg/dL (75-99)
[2019-09-21] MEDS: INSULIN ASPART (NovoLOG) 100 UNIT/ML VIAL SQ SCH ×5 (01:00→22:12)
[2019-09-21] MEDS: DILTIAZEM ORAL 30 MG TAB PO SCH ×4 (01:00→23:49)
[2019-09-21] MEDS: KETOROLAC 30 MG/ML 1 ML VIAL IVP SCH ×3 (01:01→15:41)
[2019-09-21 06:06] LABS: Glucose,Whole Blood 146 mg/dL (75-99)
[2019-09-21] MEDS: ASCORBIC ACID 500 MG TAB PO SCH ×2 (06:11→17:30)
[2019-09-21] MEDS: FERROUS SULFATE 325 MG TAB PO SCH ×2 (06:11→17:30)
[2019-09-21] MEDS: PANTOPRAZOLE 40 MG TABLET PO SCH (06:17)
[2019-09-21 06:47] LABS: ALT 89 U/L (21-72); AST 40 U/L (17-59); African American GFR (CKD) >90 (>60 ml/min/1.73 sqM); Albumin 2.8 g/dL (3.5-5.0); Alkaline Phosphatase 108 U/L (38-126); Anion Gap 4 mmol/L; Blood Urea Nitrogen 32 mg/dL (9-20); Carbon Dioxide 36 mmol/L (22-30); Chloride 102 mmol/L (98-107); Glucose 135 mg/dL (74-99); LDH 1092 U/L (313-618); Non-African American GFR(CKD) >90 (>60 ml/min/1.73 sqM); Potassium 4.2 mmol/L (3.5-5.1); Sodium 142 mmol/L (137-145); Total Bilirubin 1.4 mg/dL (0.2-1.3); Total Protein 5.4 g/dL (6.3-8.2)
[2019-09-21] MEDS: IPRATROPIUM-ALBUTEROL 3 ML NEB INHALATION SCH ×4 (08:15→21:26)
[2019-09-21] MEDS: ASPIRIN 325 MG TAB PO SCH (08:21)
[2019-09-21] MEDS: METOPROLOL TARTRATE 25 MG TAB PO SCH ×2 (08:21→22:11)
[2019-09-21] MEDS: AMIODARONE 200 MG TAB PO SCH ×2 (08:21→22:23)
[2019-09-21] MEDS: FONDAPARINUX 2.5 MG/0.5 ML SYRINGE SQ SCH (08:21)
[2019-09-21] MEDS: CLOPIDOGREL 75 MG TAB PO SCH (08:21)
[2019-09-21] MEDS: FUROSEMIDE 10 MG/ML 4 ML VIAL IV SCH ×2 (08:21→22:11)
[2019-09-21] MEDS: FOLIC ACID-VIT B COMPLEX-VIT C 1 CAP PO SCH (08:23)
[2019-09-21 08:32] LABS: Anisocytosis Slight; HCT 28.5 % (39.0-53.0); Hypochromasia Moderate; MCH 30.6 pg (25.0-35.0); MCHC 31.7 g/dL (31.0-37.0); MCV 96.6 fL (80.0-100.0); Macrocytosis Slight; Mean Platelet Volume 9.3; Platelet Count 311 k/uL (150-450); Poikilocytosis Slight; RBC 2.95 m/uL (4.30-5.90); RDW 16.8 % (11.5-15.5); WBC 11.9 k/uL (3.8-10.6)
[2019-09-21 09:24] LABS: Eosinophils # (M) 0.95 k/uL (0-0.7); Lymphocytes # (M) 1.19 k/uL (1.0-4.8); Monocytes # (M) 1.19 k/uL (0-1.0); Neutrophils # (M) 8.57 k/uL (1.3-7.7); Neutrophils % (M) 72 %; Nucleated Red Blood Cells 0 /100 WBC (0-0); Total Cells Counted 100
--- NOTE | 2019-09-21 10:19 | P.PN ---
Subjective Progress Note Date: 09/21/19 Principal diagnosis: Severe aortic valve stenosis and triple-vessel coronary artery disease. Past medical history significant for coronary artery disease, status post coronary artery bypass grafting surgery in 1999 with his left internal mammary artery to left anterior descending coronary artery, known aortic valve stenosis, history of platelet disorder status post splenectomy, diabetes mellitus type 2, hyperlipidemia, hypertension, obesity and a remote history of nicotine d ependence which he quit smoking over 25 years ago. POD #9 Urgent median sternotomy with redo double coronary artery bypass grafting using the left radial artery from the aorta to the right coronary artery, reverse saphenous vein graft from the aorta to the obtuse marginal artery, aortic valve replacement using a 25 mm Inspiris pericardial bioprosthesis, endoscopic harvesting of the left radial artery, endoscopic harvesting of the left greater saphenous vein in the groin to above the ankle level, intraoperative graft flow measurements using the [employer] system, intraoperative transesophageal echocardiogram and epi-aortic scanning. Postoperative prolonged mechanical ventilation secondary to re-operation and acidosis, unexpected. Postoperative lactic acidosis with metabolic acidosis, resolved. Postoperative thrombocytopenia, expected. Postoperative hypotension, unexpected. Postoperative hypernatremia, unexpected. Postoperative acute blood loss anemia, expected from hemodilution and cardiopulmonary bypass, with postoperative bleeding which was unexpected. POD #8 re-operation, sternal exploration with evacuation of clots. Postoperative transaminitis, somewhat expected due to hypotension. Postoperative atrial fibrillation, unexpected but common occurance after open heart surgery. Postoperative leukocytosis, an expected outcome as he is post splenectomy. The patient is sitting up to the bedside chair on the cardiac stepdown unit. He is in no acute distress. Continues to report that he is feeling better on a daily basis. Denies any complaints of pain, although complaining of shortness of breath with activity. He continues to complain of generalized weakness which he relates to his edema to his upper and lower extremities. He remains hemodynamically stable and is currently on no inotropic or pressor support. Oxygen saturations are 99% on 2 L nasal cannula. Achieving 750 mL on his incentive spirometry with encouragement. He remains afebrile. He reportes that he ambulated in the cardiac care unit in all way yesterday 2, he had to take some rest periods, but tolerated the walk overall. Discharge instructions were reviewed with the patient has he is anticipating being discharged to [facility] tomorrow for further rehabilitation needs. Objective - Vital Signs Vital signs: Vital Signs Temp 97.7 F 09/21/19 03:14 Pulse 76 09/21/19 04:30 Resp 22 09/21/19 04:30 BP 104/60 09/21/19 03:14 Pulse Ox 99 09/21/19 03:14 Intake & Output 09/20/19 09/21/19 09/21/19 18:59 06:59 18:59 Intake Total 960 230 Balance 960 230 Weight 119.6 kg Intake: IV 30 Invasive Line 6 30 Oral 960 200 Other: Voiding Method Toilet Toilet ABP, PAP, CO, CI - Last Documented Arterial Blood Pressure 119/71 Pulmonary Artery Pressure 41/24 Cardiac Output 5.5 Cardiac Index 2.5 - Constitutional General appearance: Present: cooperative, morbidly obese, no acute distress - Respiratory Details: Lungs sounds with expiratory wheezes scattered throughout, diminished to his bilateral bases. Respirations are symmetrical and nonlabored. Oxygen saturation are 99% on 2 L nasal cannula. Achieving 750 mL on his incentive spirometry. - Cardiovascular Details: Regular rhythm and rate. S1 and S2 present, negative for S3, gallop or murmur. Sternum is stable. Heart hugger is in place and is demonstrating appropriate use. Knee-high KORTNEY hose and sequential compression devices in place to his bilateral lower extremities. +2 generalized edema. - Gastrointestinal Gastrointestinal Comment(s): Abdomen is soft, nontender and nondistended. Active bowel sounds present in all 4 abdominal quadrants. No guarding or rigidity. No organomegaly appreciated. Bowel movement yesterday. Tolerating oral intake. - Genitourinary Genitourinary Comment(s): Voiding clear michaela urine. - Integumentary Integumentary Comment(s): Skin is warm and dry. No clubbing or cyanosis is present. Midline sternal incision is clean, dry and approximated. No drainage or redness is present. Gauze dressing is clean, dry and intact. Left radial harvest sites clean, dry and approximated. No drainage or redness present. Palpable ulnar pulse present. Left lower extremity EVH site clean, dry and approximated. No drainage or redness is present. - Neurologic Neurologic: Present: CNII-XII intact - Musculoskeletal Musculoskeletal: Present: gait normal, generalized weakness, strength equal bilaterally - Psychiatric Psychiatric: Present: A&O x's 3, appropriate affect, intact judgment & insight - Allied health notes Allied health notes reviewed: nursing - Labs CBC & Chem 7: 09/20/19 06:21 09/21/19 06:14 Labs: Abnormal Lab Results - Last 24 Hours (Table) 09/20/19 09/20/19 09/20/19 Range/Units 06:21 12:04 16:47 WBC 14.4 H (3.8-10.6) k/uL Neutrophils # (Manual) 9.65 H (1.3-7.7) k/uL Monocytes # (Manual) 1.15 H (0-1.0) k/uL Eosinophils # (Manual) 1.58 H (0-0.7) k/uL Nucleated RBCs 1 H (0-0) /100 WBC Carbon Dioxide (22-30) mmol/L BUN (9-20) mg/dL Glucose (74-99) mg/dL POC Glucose (mg/dL) 167 H 176 H (75-99) mg/dL Calcium (8.4-10.2) mg/dL Total Bilirubin (0.2-1.3) mg/dL ALT (21-72) U/L Lactate Dehydrogenase (313-618) U/L Total Protein (6.3-8.2) g/dL Albumin (3.5-5.0) g/dL 09/20/19 09/21/19 09/21/19 Range/Units 19:47 00:57 06:04 WBC (3.8-10.6) k/uL Neutrophils # (Manual) (1.3-7.7) k/uL Monocytes # (Manual) (0-1.0) k/uL Eosinophils # (Manual) (0-0.7) k/uL Nucleated RBCs (0-0) /100 WBC Carbon Dioxide (22-30) mmol/L BUN (9-20) mg/dL Glucose (74-99) mg/dL POC Glucose (mg/dL) 205 H 134 H 146 H (75-99) mg/dL Calcium (8.4-10.2) mg/dL Total Bilirubin (0.2-1.3) mg/dL ALT (21-72) U/L Lactate Dehydrogenase (313-618) U/L Total Protein (6.3-8.2) g/dL Albumin (3.5-5.0) g/dL 09/21/19 Range/Units 06:14 WBC (3.8-10.6) k/uL Neutrophils # (Manual) (1.3-7.7) k/uL Monocytes # (Manual) (0-1.0) k/uL Eosinophils # (Manual) (0-0.7) k/uL Nucleated RBCs (0-0) /100 WBC Carbon Dioxide 36 H (22-30) mmol/L BUN 32 H (9-20) mg/dL Glucose 135 H (74-99) mg/dL POC Glucose (mg/dL) (75-99) mg/dL Calcium 8.0 L (8.4-10.2) mg/dL Total Bilirubin 1.4 H (0.2-1.3) mg/dL ALT 89 H (21-72) U/L Lactate Dehydrogenase 1092 H (313-618) U/L Total Protein 5.4 L (6.3-8.2) g/dL Albumin 2.8 L (3.5-5.0) g/dL Microbiology - Last 24 Hours (Table) 09/18/19 08:56 Blood Culture - Preliminary Blood No Growth after 48 hours 09/14/19 07:05 Blood Culture - Final Blood No Growth after 144 hours 09/18/19 10:15 Gram Stain - Final Sputum Sputum Culture - Final - Imaging and Cardiology Chest x-ray: report reviewed, image reviewed Assessment and Plan Assessment: 1. Triple-vessel calcified coronary artery disease, NSTEMI in this admission, status post urgent two-vessel bypass 2. Severe aortic valve stenosis, status post bioprosthetic aortic valve re placement 3. Mild to moderate tricuspid valve regurgitation 4. Hypertension 5. Hyperlipidemia 6. History of ITP status post splenectomy 7. Type 2 diabetes mellitus, hemoglobin A1c 6.6% 8. Morbid obesity 9. Previous tobacco dependence, moderate COPD with FEV1 54% of predicted 10. Postoperative lactic acidosis with metabolic acidosis, resolving 11. Postoperative thrombocytopenia, resolving 12. Postoperative hypotension, resolved 13. Postoperative hypernatremia, resolved 14. Postoperative acute blood loss anemia with postoperative bleeding, status post reoperation with sternal exploration and evacuation of clots 15. Postoperative transaminitis 16. Postoperative prolonged mechanical ventilation 17. Postoperative atrial fibrillation, currently in normal sinus rhythm 18. Postoperative leukocytosis, expected due to his history of splenectomy Plan: 1. Continue to optimize medical management with full strength aspirin, plavix, statin and beta robin. Will increase metoprolol tartrate as tolerated. 2. Continue oral amiodarone 200 mg by mouth twice a day and Cardizem PO 30mg every 8 hours for radial artery spasm prophylaxis. 3. Wean oxygen as tolerated. Encourage incentive spirometry as tolerated. Bronchodilators per pulmonology, no steroid based inhaler per pulmonary 4. Continue Lasix 40 mg IV twice a day. 5. Increase activity as tolerated, out of bed to chair for all meals. PT/OT/cardiac rehab following. 6. Will monitor daily chest x-rays and labs. Electrolyte replacement per protocol. 7. Insulin management per primary care service. 8. Pain control per current medication regimen. Avoid opioids. 9. GI/DVT prophylaxis. Continue Arixtra. 10. Encourage use of incentive spirometry every hour while awake. 11. Shower daily. Discharge instructions reviewed with the patient. 12. Anticipate discharge to [facility] on 09/22/2019. 13. More recommendations to follow based on patient's clinical course. Time with Patient: Greater than 30
--- NOTE | 2019-09-21 10:52 | XR ---
EXAMINATION TYPE: XR chest 1V portable DATE OF EXAM: 09/21/2019 HISTORY: Shortness of breath. COMPARISON: 09/20/2019 TECHNIQUE: Single view of the chest is submitted. FINDINGS: Demonstrated are scattered senescent parenchymal change. Cardiomegaly pulmonary venous congestion and small effusions persist. Hilar and mediastinal structures are within normal limits. Degenerative changes are seen of the dorsal spine. IMPRESSION: 1. Cardiomegaly pulmonary venous congestion and small effusions persist.
[2019-09-21 11:58] LABS: Glucose,Whole Blood 168 mg/dL (75-99)
[2019-09-21] MEDS ORDERED: FUROSEMIDE 10 MG/ML 4 ML VIAL IV ONE (12:00)
--- NOTE | 2019-09-21 12:32 | PN ---
PROGRESS NOTE Joseph is angeline.m. 69-year-old gentleman with CAD status post CABG, status post aortic valve replacement. He is doing better. He still has significant leg and arm edema and also has scrotal edema. He is currently on 40 mg of IV Lasix b.i.d. He lost about 2 pounds since yesterday. I am going to give him an extra dose of Lasix this afternoon. EXAM: Comfortable at rest. Vital signs are stable. Chest exam reveals good air entry bilaterally. Heart exam reveals first and second heart sounds. No gallop. Examination of the extremities reveals bilateral moderate edema. He has edema over his arms also, but that has improved compared to before and he has scrotal edema. LABS: Showed that the hemoglobin is 9, platelet count is 311. Potassium is 4.2. Creatinine is 0.7. ASSESSMENT: 1. Coronary artery disease, status post redo coronary artery bypass grafting. 2. Status post aortic valve replacement. 3. Fluid overload. PLAN: Patient will get an extra dose of Lasix. His LV function was normal prior to surgery. MMODL / IJN: [id number] /
--- NOTE | 2019-09-21 12:36 | P.PN ---
Subjective Progress Note Date: 09/21/19 With today's evaluation of 09/21/2019, the patient is postop day #9 from redo bypass surgery. The patient also had an aortic valve replacement. The patient's sitting up on a chair. He is feeling better on a daily basis. He is using incentive spirometer. Is on 2 L of oxygen by nasal cannula. He is stable for now and is looking forward to be discharged to rehabilitation probably next 24 hours. Occasional reviewed. No other changes from my standpoint. He is in a sinus rhythm for now. The chest x-ray still showing cardiomegaly with mild pulmonary vascular congestion and small effusions. Objective - Vital Signs Vital signs: Vital Signs Temp 97.6 F 09/21/19 11:27 Pulse 72 09/21/19 11:27 Resp 20 09/21/19 11:27 BP 117/58 09/21/19 11:27 Pulse Ox 97 09/21/19 11:27 Intake & Output 09/20/19 09/21/19 09/21/19 18:59 06:59 18:59 Intake Total 960 230 240 Output Total 400 Balance 960 230 -160 Weight 119.6 kg Intake: IV 30 Invasive Line 6 30 Oral 960 200 240 Output: Urine 400 Other: Voiding Method Toilet Toilet Toilet # Voids 1 ABP, PAP, CO, CI - Last Documented Arterial Blood Pressure 119/71 Pulmonary Artery Pressure 41/24 Cardiac Output 5.5 Cardiac Index 2.5 - Exam - Constitutional General appearance: Present: cooperative, no acute distress, obese - Respiratory Details: Lung sounds diminished bilaterally with crackles in the bases. Respirations even, non-labored. Currently on 2L NC with oxygen saturation 96%. Chest tubes have been removed and the exit site is dry clean and intact. - Cardiovascular Details: S1, S2 present. Regular rate and rhythm, sinus rhythm on telemetry. Sternum stable. - Gastrointestinal Gastrointestinal Comment(s): Abdomen soft, non-tender, non-distended, obese. Active bowel sounds present x 4 quadrants. Tolerating ice chips, clear liquids. Denies flatus, positive na usea. - Genitourinary Genitourinary Comment(s): [place] present draining cloudy, yellow urine. Urine output 50 mL per hour overnight. - Integumentary Integumentary Comment(s): Skin is warm and dry. Anterior chest incision well approximated covered with dry intact dressing. Left radial artery harvest site well approximated, good cap refill, pt denies numbness/tingling, able to move fingers. Left lower extremity EVH site well approximated - Neurologic Neurologic: Present: CNII-XII intact - Musculoskeletal Musculoskeletal: Present: generalized weakness, strength equal bilaterally - Psychiatric Psychiatric: Present: A&O x's 3, appropriate affect, intact judgment & insight - Labs CBC & Chem 7: 09/21/19 06:14 09/21/19 06:14 Labs: Abnormal Lab Results - Last 24 Hours (Table) 09/20/19 09/20/19 09/21/19 Range/Units 16:47 19:47 00:57 WBC (3.8-10.6) k/uL RBC (4.30-5.90) m/uL Hgb (13.0-17.5) gm/dL Hct (39.0-53.0) % RDW (11.5-15.5) % Neutrophils # (Manual) (1.3-7.7) k/uL Monocytes # (Manual) (0-1.0) k/uL Eosinophils # (Manual) (0-0.7) k/uL Carbon Dioxide (22-30) mmol/L BUN (9-20) mg/dL Glucose (74-99) mg/dL POC Glucose (mg/dL) 176 H 205 H 134 H (75-99) mg/dL Calcium (8.4-10.2) mg/dL Total Bilirubin (0.2-1.3) mg/dL ALT (21-72) U/L Lactate Dehydrogenase (313-618) U/L Total Protein (6.3-8.2) g/dL Albumin (3.5-5.0) g/dL 09/21/19 09/21/19 09/21/19 Range/Units 06:04 06:14 06:14 WBC 11.9 H (3.8-10.6) k/uL RBC 2.95 L (4.30-5.90) m/uL Hgb 9.0 L (13.0-17.5) gm/dL Hct 28.5 L (39.0-53.0) % RDW 16.8 H (11.5-15.5) % Neutrophils # (Manual) 8.57 H (1.3-7.7) k/uL Monocytes # (Manual) 1.19 H (0-1.0) k/uL Eosinophils # (Manual) 0.95 H (0-0.7) k/uL Carbon Dioxide 36 H (22-30) mmol/L BUN 32 H (9-20) mg/dL Glucose 135 H (74-99) mg/dL POC Glucose (mg/dL) 146 H (75-99) mg/dL Calcium 8.0 L (8.4-10.2) mg/dL Total Bilirubin 1.4 H (0.2-1.3) mg/dL ALT 89 H (21-72) U/L Lactate Dehydrogenase 1092 H (313-618) U/L Total Protein 5.4 L (6.3-8.2) g/dL Albumin 2.8 L (3.5-5.0) g/dL 09/21/19 Range/Units 11:56 WBC (3.8-10.6) k/uL RBC (4.30-5.90) m/uL Hgb (13.0-17.5) gm/dL Hct (39.0-53.0) % RDW (11.5-15.5) % Neutrophils # (Manual) (1.3-7.7) k/uL Monocytes # (Manual) (0-1.0) k/uL Eosinophils # (Manual) (0-0.7) k/uL Carbon Dioxide (22-30) mmol/L BUN (9-20) mg/dL Glucose (74-99) mg/dL POC Glucose (mg/dL) 168 H (75-99) mg/dL Calcium (8.4-10.2) mg/dL Total Bilirubin (0.2-1.3) mg/dL ALT (21-72) U/L Lactate Dehydrogenase (313-618) U/L Total Protein (6.3-8.2) g/dL Albumin (3.5-5.0) g/dL Microbiology - Last 24 Hours (Table) 09/18/19 08:56 Blood Culture - Preliminary Blood No Growth after 72 hours 09/14/19 07:05 Blood Culture - Final Blood No Growth after 144 hours 11/28/19 10:15 Gram Stain - Final Sputum Sputum Culture - Final Assessment and Plan Plan: 1 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 Postop day #9 2 coronary valve stenosis post aortic valve with a bioprostheticvalve. Postop day #9 3 bleeding postoperatively, multifactorial including consumptive thrombocyt openia and the patient required a total of 7 units of packed RBCs, 5 units of fresh frozen plasma, 2 units of platelets and 2 units of cryoprecipitate. The hemoglobin is at 9 4. Shock related to above with bleeding and tamponade physiology, post reexploration and evacuation of blood clots around the pericardium, recovered and output from the chest tube is currently minimal for now. 5 history of ITP postsplenectomy. Platelet counts are stable, improving on Arixtra 6 diabetes mellitus currently on insulin sliding scale coverage 7 obesity 8 obstructive sleep apnea not utilizing any form of CPAP therapy on outpatient basis due to poor tolerability currently off BiPAP and currently on 3 L by nasal cannula 9 acute hypoxic respiratory failure, expected outcome of surgery, improving and currently on 2 L of oxygen by nasal cannula 10 bilateral pleural effusions, expected outcome of surgery, improving 11 blood loss anemia, acute, postop, expected outcome of surgery, stable 12 paroxysmal atrial fibrillation alternating with sinus rhythm 13 leukocytosis, improving, infection is doubtful at age, the white cell count is down to 11.1. No antibiotic treatment for now. Plan Continue same treatment for now. Chest x-ray reviewed. Hemoglobin is stable. White cell count approving. The patient is going to be transferred to [facility] in a.m. Meanwhile, continue using incentive spirometer. Ambulate him in the hallway. Medications were reviewed. Hemoglobin is stable. No other changes from my standpoint.
[2019-09-21 16:52] LABS: Glucose,Whole Blood 133 mg/dL (75-99)
--- NOTE | 2019-09-21 18:45 | P.PN ---
Subjective Progress Note Date: 09/21/19 Principal diagnosis: Severe aortic stenosis and status post CABG and aortic valve replacement Mr. Nelson is a 69-year-old male with a past medical history of coronary artery disease status post CABG, aortic stenosis, type 2 diabetes mellitus, hyperlipidemia, obstructive sleep apnea on CPAP coming to the hospital with a chief complaint of syncope. Patient underwent cardiac catheterization and DAMARI was found to have severe aortic stenosis. Patient had coronary artery bypass grafting along with aortic wall replacement on 09/12/2019. Postop patient had bleeding in the retrocardiac area so he was taken again for evacuation of the clots. Patient received multiple blood products during the procedure. He had a very rough postoperative recovery. On 09/21/19 : Patient is post op day #9 . Sitting up in a chair by the bedside. He still complains of difficulty in breathing and lower extremity edema. No significant issues reported by nursing staff overnight. Patient had a chest x- ray showing improvement in the interstitial edema and the right basilar opacity. Patient denies having any fevers chills or rigors. No complaints of chest pain or palpitations. No abdominal pain nausea vomiting or diarrhea. No dysuria or hematuria. Patient's medications and labs have been reviewed. Active Medications Acetaminophen (Tylenol Tab) 1,000 mg PO Q6HR PRN PRN Reason: Fever and/ or Pain Last Admin: 09/20/19 19:53 Dose: 1,000 mg Documented by: Albuterol/Ipratropium (Duoneb 0.5 Mg-3 Mg/3 Ml Soln) 3 ml INHALATION RT-Q2H PRN PRN Reason: Shortness Of Breath Or Wheezing Albuterol/Ipratropium (Duoneb 0.5 Mg-3 Mg/3 Ml Soln) 3 ml INHALATION RT-QID [facility] Last Admin: 09/21/19 15:41 Dose: Not Given Documented by: Amiodarone HCl (Cordarone) 200 mg PO BID [facility] Last Admin: 09/21/19 08:21 Dose: 200 mg Documented by: Ascorbic Acid (Vitamin C) 500 mg PO BID-W/MEALS [facility] Last Admin: 09/21/19 17:30 Dose: 500 mg Documented by: Aspirin (Aspirin) 325 mg PO DAILY [facility] Last Admin: 09/21/19 08:21 Dose: 325 mg Documented by: Atorvastatin Calcium (Lipitor) 40 mg PO HS [facility] Last Admin: 09/20/19 19:51 Dose: 40 mg Documented by: Benzocaine/Menthol (Cepacol Lozenge) 1 each MUCOUS MEM Q2H PRN PRN Reason: Sore Throat Clopidogrel Bisulfate (Plavix) 75 mg PO DAILY [facility] Last Admin: 09/21/19 08:21 Dose: 75 mg Documented by: Diltiazem HCl (Cardizem Oral) 30 mg PO Q8HR [facility] Last Admin: 09/21/19 15:41 Dose: 30 mg Documented by: Ferrous Sulfate (Feosol) 325 mg PO BID-W/MEALS [facility] Last Admin: 09/21/19 17:30 Dose: 325 mg Documented by: Fondaparinux (Arixtra) 2.5 mg SQ DAILY [facility] Last Admin: 09/21/19 08:21 Dose: 2.5 mg Documented by: Furosemide (Lasix) 40 mg IV BID [facility] Last Admin: 09/21/19 08:21 Dose: 40 mg Documented by: Amiodarone HCl 150 mg/ (Dextrose/Water) 103 mls @ 618 mls/hr IV .Q10M PRN; Protocol PRN Reason: A.FIB/FLUTTER Last Admin: 09/14/19 16:50 Dose: 618 mls/hr Documented by: Insulin Aspart (Novolog) 0 unit SQ [id number] SCH; Protocol Last Admin: 09/21/19 17:30 Dose: 1 unit Documented by: Magnesium Hydroxide (Milk Of Magnesia) 2,400 mg PO DAILY PRN PRN Reason: Constipation Last Admin: 09/20/19 14:14 Dose: 2,400 mg Documented by: Metoclopramide HCl (Reglan) 10 mg IVP Q4H PRN PRN Reason: Nausea And Vomiting Metoprolol Tartrate (Lopressor) 25 mg PO BID [facility] Last Admin: 09/21/19 08:21 Dose: 25 mg Documented by: Miscellaneous Information (Potassium Per Protocol) 1 each MISCELLANE DAILY PRN; Protocol PRN Reason: Per Protocol Miscellaneous Information (Magnesium Per Protocol) 1 each MISCELLANE DAILY PRN; Protocol PRN Reason: Per Protocol Miscellaneous Information (Phosphorus Per Protocol) 1 each MISCELLANE DAILY PRN; Protocol PRN Reason: Per Protocol Multivit/Ca Carb/B Cmplx/FA/Prenat (Nephrocaps) 1 each PO DAILY [facility] Last Admin: 09/21/19 08:23 Dose: 1 each Documented by: Ondansetron HCl (Zofran) 4 mg IVP Q6HR PRN PRN Reason: Nausea And Vomiting Last Admin: 09/17/19 19:22 Dose: 4 mg Documented by: Pantoprazole Sodium (Protonix) 40 mg PO AC-BRKFST [facility] Last Admin: 09/21/19 06:17 Dose: 40 mg Documented by: Senna/Docusate Sodium (Senokot-S) 2 each PO HS [facility] Last Admin: 09/20/19 19:51 Dose: 2 each Documented by: Sodium Chloride (Saline Flush) 10 ml IV BID [facility] Last Admin: 09/21/19 08:25 Dose: 10 ml Documented by: Objective - Vital Signs Vital signs: Vital Signs Temp 97.3 F L 09/21/19 15:38 Pulse 76 09/21/19 15:38 Resp 20 09/21/19 17:11 BP 117/65 09/21/19 15:38 Pulse Ox 98 09/21/19 15:38 Intake & Output 09/20/19 09/21/19 09/21/19 18:59 06:59 18:59 Intake Total 960 230 480 Output Total 400 Balance 960 230 80 Weight 119.6 kg Intake: IV 30 Invasive Line 6 30 Oral 960 200 480 Output: Urine 400 Other: Voiding Method Toilet Toilet Toilet # Voids 1 ABP, PAP, CO, CI - Last Documented Arterial Blood Pressure 119/71 Pulmonary Artery Pressure 41/24 Cardiac Output 5.5 Cardiac Index 2.5 - Exam GEN. APPEARANCE: alert, in no apparent distress HEENT : No pallor. No icterus. Pupils equal and round and reactive to light. No thyromegaly. RESPIRATORY EXAM: normal lung sounds bilaterally. Few crackles at the lower lung bases. CARDIOVASCULAR EXAM: regular rate, normal rhythm, normal heart sounds. Grade 3 systolic murmur, loudest at aortic area. GI/ABDOMINAL EXAM: soft, normal bowel sounds. Nontender. No guarding or rigidity. EXTREMITIES EXAM: Pitting edema bilaterally. Skin peeling off on the left lower extremity NEUROLOGICAL EXAM: alert, oriented X3, no focal deficits. - Labs CBC & Chem 7: 09/21/19 06:14 09/21/19 06:14 Labs: Abnormal Lab Results - Last 24 Hours (Table) 09/20/19 09/21/19 09/21/19 Range/Units 19:47 00:57 06:04 WBC (3.8-10.6) k/uL RBC (4.30-5.90) m/uL Hgb (13.0-17.5) gm/dL Hct (39.0-53.0) % RDW (11.5-15.5) % Neutrophils # (Manual) (1.3-7.7) k/uL Monocytes # (Manual) (0-1.0) k/uL Eosinophils # (Manual) (0-0.7) k/uL Carbon Dioxide (22-30) mmol/L BUN (9-20) mg/dL Glucose (74-99) mg/dL POC Glucose (mg/dL) 205 H 134 H 146 H (75-99) mg/dL Calcium (8.4-10.2) mg/dL Total Bilirubin (0.2-1.3) mg/dL ALT (21-72) U/L Lactate Dehydrogenase (313-618) U/L Total Protein (6.3-8.2) g/dL Albumin (3.5-5.0) g/dL 09/21/19 09/21/19 09/21/19 Range/Units 06:14 06:14 11:56 WBC 11.9 H (3.8-10.6) k/uL RBC 2.95 L (4.30-5.90) m/uL Hgb 9.0 L (13.0-17.5) gm/dL Hct 28.5 L (39.0-53.0) % RDW 16.8 H (11.5-15.5) % Neutrophils # (Manual) 8.57 H (1.3-7.7) k/uL Monocytes # (Manual) 1.19 H (0-1.0) k/uL Eosinophils # (Manual) 0.95 H (0-0.7) k/uL Carbon Dioxide 36 H (22-30) mmol/L BUN 32 H (9-20) mg/dL Glucose 135 H (74-99) mg/dL POC Glucose (mg/dL) 168 H (75-99) mg/dL Calcium 8.0 L (8.4-10.2) mg/dL Total Bilirubin 1.4 H (0.2-1.3) mg/dL ALT 89 H (21-72) U/L Lactate Dehydrogenase 1092 H (313-618) U/L Total Protein 5.4 L (6.3-8.2) g/dL Albumin 2.8 L (3.5-5.0) g/dL 09/21/19 Range/Units 16:40 WBC (3.8-10.6) k/uL RBC (4.30-5.90) m/uL Hgb (13.0-17.5) gm/dL Hct (39.0-53.0) % RDW (11.5-15.5) % Neutrophils # (Manual) (1.3-7.7) k/uL Monocytes # (Manual) (0-1.0) k/uL Eosinophils # (Manual) (0-0.7) k/uL Carbon Dioxide (22-30) mmol/L BUN (9-20) mg/dL Glucose (74-99) mg/dL POC Glucose (mg/dL) 133 H (75-99) mg/dL Calcium (8.4-10.2) mg/dL Total Bilirubin (0.2-1.3) mg/dL ALT (21-72) U/L Lactate Dehydrogenase (313-618) U/L Total Protein (6.3-8.2) g/dL Albumin (3.5-5.0) g/dL Microbiology - Last 24 Hours (Table) 09/18/19 08:56 Blood Culture - Preliminary Blood No Growth after 72 hours Assessment and Plan Assessment: ASSESSMENT Severe aortic stenosis status post CABG and bioprosthetic wall replacement - postop day #9 Non-ST elevation [place] Severe aortic stenosis Mild to moderate tricuspid regurgitation Postoperative bleeding status post exploration and evacuation of blood clots History of idiopathic thrombocytopenic purpura Respiratory failure postoperatively patient - resolved Bilateral pleural effusions Proximal A. fib on amiodarone Postoperative shock Coronary artery disease status post CABG Type 2 diabetes mellitus Hypertension Hyperlipidemia Obstructive sleep apnea on CPAP PLAN: Patient's chest x-ray showed improvement in interstitial edema. Continue with the current medication regimen. Further recommendations to follow depending on the progress of the patient. Planning for a transferring the patient to [facility] in the morning.
[2019-09-21] MEDS ORDERED: ALBUTEROL INHALER 60 PUFF/8 GM INHALER INHALATION PRN (19:46)
--- NOTE | 2019-09-21 19:49 | P.PN ---
Subjective Progress Note Date: 09/21/19 Principal diagnosis: history of ITP Very pleasant 69-year-old gentleman with a past medical history of coronary artery bypass grafting, aortic stenosis, diabetes, hyperlipidemia, obstructive sleep apnea currently admitted with syncopal episode underwent cardiac catheterization and DAMARI and was found to have severe aortic stenosis. We have been consulted for history of ITP. Currently he is postop and doing well no new issues stable. We have been asked to follow along with pt for Hx of ITP, treated with splencectomy quite a few years ago, no recurrent episodes of ITP. Pt is s/p aortic valve replacement and CABG. No bleeding. Objective - Vital Signs Vital signs: Vital Signs Temp 97.3 F L 09/21/19 15:38 Pulse 76 09/21/19 15:38 Resp 20 09/21/19 17:11 BP 117/65 09/21/19 15:38 Pulse Ox 98 09/21/19 15:38 Intake & Output 09/21/19 09/21/19 09/22/19 06:59 18:59 06:59 Intake Total 230 720 Output Total 400 Balance 230 320 Weight 119.6 kg Intake: IV 30 Invasive Line 6 30 Oral 200 720 Output: Urine 400 Other: Voiding Method Toilet Toilet # Voids 1 ABP, PAP, CO, CI - Last Documented Arterial Blood Pressure 119/71 Pulmonary Artery Pressure 41/24 Cardiac Output 5.5 Cardiac Index 2.5 - Exam The patient appeared well nourished and normally developed. Vital signs as documented. Head exam is unremarkable. No scleral icterus or corneal arcus noted. Neck is without jugular venous distension, thyromegaly, or carotid bruits. Carotid upstrokes are brisk bilaterally. Lungs are clear to auscultation and percussion. Cardiac exam reveals the PMI to be normally sized and situated. Rhythm is regular. First and second heart sounds normal. No murmurs, rubs or gallops. Abdominal exam reveals normal bowel sounds, no masses, no organomegaly and no aortic enlargement. Extremities are nonedematous and both femoral and pedal pulses are normal. - Labs CBC & Chem 7: 09/21/19 06:14 09/21/19 06:14 Labs: Abnormal Lab Results - Last 24 Hours (Table) 09/20/19 09/21/19 09/21/19 Range/Units 19:47 00:57 06:04 WBC (3.8-10.6) k/uL RBC (4.30-5.90) m/uL Hgb (13.0-17.5) gm/dL Hct (39.0-53.0) % RDW (11.5-15.5) % Neutrophils # (Manual) (1.3-7.7) k/uL Monocytes # (Manual) (0-1.0) k/uL Eosinophils # (Manual) (0-0.7) k/uL Carbon Dioxide (22-30) mmol/L BUN (9-20) mg/dL Glucose (74-99) mg/dL POC Glucose (mg/dL) 205 H 134 H 146 H (75-99) mg/dL Calcium (8.4-10.2) mg/dL Total Bilirubin (0.2-1.3) mg/dL ALT (21-72) U/L Lactate Dehydrogenase (313-618) U/L Total Protein (6.3-8.2) g/dL Albumin (3.5-5.0) g/dL 09/21/19 09/21/19 09/21/19 Range/Units 06:14 06:14 11:56 WBC 11.9 H (3.8-10.6) k/uL RBC 2.95 L (4.30-5.90) m/uL Hgb 9.0 L (13.0-17.5) gm/dL Hct 28.5 L (39.0-53.0) % RDW 16.8 H (11.5-15.5) % Neutrophils # (Manual) 8.57 H (1.3-7.7) k/uL Monocytes # (Manual) 1.19 H (0-1.0) k/uL Eosinophils # (Manual) 0.95 H (0-0.7) k/uL Carbon Dioxide 36 H (22-30) mmol/L BUN 32 H (9-20) mg/dL Glucose 135 H (74-99) mg/dL POC Glucose (mg/dL) 168 H (75-99) mg/dL Calcium 8.0 L (8.4-10.2) mg/dL Total Bilirubin 1.4 H (0.2-1.3) mg/dL ALT 89 H (21-72) U/L Lactate Dehydrogenase 1092 H (313-618) U/L Total Protein 5.4 L (6.3-8.2) g/dL Albumin 2.8 L (3.5-5.0) g/dL 09/21/19 Range/Units 16:40 WBC (3.8-10.6) k/uL RBC (4.30-5.90) m/uL Hgb (13.0-17.5) gm/dL Hct (39.0-53.0) % RDW (11.5-15.5) % Neutrophils # (Manual) (1.3-7.7) k/uL Monocytes # (Manual) (0-1.0) k/uL Eosinophils # (Manual) (0-0.7) k/uL Carbon Dioxide (22-30) mmol/L BUN (9-20) mg/dL Glucose (74-99) mg/dL POC Glucose (mg/dL) 133 H (75-99) mg/dL Calcium (8.4-10.2) mg/dL Total Bilirubin (0.2-1.3) mg/dL ALT (21-72) U/L Lactate Dehydrogenase (313-618) U/L Total Protein (6.3-8.2) g/dL Albumin (3.5-5.0) g/dL Microbiology - Last 24 Hours (Table) 09/18/19 08:56 Blood Culture - Preliminary Blood No Growth after 72 hours Assessment and Plan Assessment: impression and plan: 1. 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 Now recovered. Antiplatelet therapy, DVT prophylaxis, transfuse to keep platelets >50,000 - current platelet number of stable, no evidence of bleeding, post surgery - Continue monitoring. 2. Anemia, normocytic: - Multifactorial, status post surgery, blood loss anemia, - Current hemoglobin 8.7. - Evaluate for deficiencies, check iron B12 folate, check value hemolysis check LDH heptoglobin. - Continue ferrous sulfate,add folic acid. 3. reactive leukocytosis 4. Severe aortic stenosis status post bioprosthetic wall replacement. 5. Respiratory distress, bilateral pleural effusions. 6. Elevated liver enzymes 7. History of diabetes, hypertension, hyperlipidemia, obstructive sleep apnea. Patient on Arixtra2.5 mg subcutaneous daily. Thank you for allowing me to participate in the care of your patient. Shade Haywood MD [employer], [facility] Hematology Oncology [id number], [address] [place] [address] Office: [phone]
[2019-09-21] MEDS ORDERED: ALBUTEROL NEBULIZED 2.5 MG/3 ML INHALATION PRN (19:58)
[2019-09-21 20:53] LABS: Glucose,Whole Blood 199 mg/dL (75-99)
[2019-09-21] MEDS: ATORVASTATIN 40 MG TAB PO SCH (22:11)
[2019-09-21] MEDS: SENNOSIDES-DOCUSATE SODIUM 1 EACH TAB PO SCH (22:12)
[2019-09-22 01:56] LABS: Glucose,Whole Blood 164 mg/dL (75-99)
[2019-09-22] MEDS: INSULIN ASPART (NovoLOG) 100 UNIT/ML VIAL SQ SCH ×3 (02:15→12:12)
[2019-09-22 06:22] LABS: Anisocytosis Slight; Basophils # (A) 0.1 k/uL (0-0.2); Basophils % (A) 0 %; Eosinophils # (A) 0.7 k/uL (0-0.7); Eosinophils % (A) 5 %; HCT 28.1 % (39.0-53.0); HGB 8.8 gm/dL (13.0-17.5); Hypochromasia Moderate; Lymphocytes # (A) 1.4 k/uL (1.0-4.8); Lymphocytes % (A) 11 %; MCH 30.6 pg (25.0-35.0); MCHC 31.2 g/dL (31.0-37.0); MCV 97.9 fL (80.0-100.0); Macrocytosis Slight; Mean Platelet Volume 7.6; Monocytes # (A) 0.6 k/uL (0-1.0); Monocytes % (A) 5 %; Neutrophils # (A) 10.3 k/uL (1.3-7.7); Neutrophils % (A) 78 %; Platelet Count 490 k/uL (150-450); Poikilocytosis Slight; RBC 2.87 m/uL (4.30-5.90); RDW 16.5 % (11.5-15.5); WBC 13.2 k/uL (3.8-10.6)
[2019-09-22 06:30] LABS: Glucose,Whole Blood 200 mg/dL (75-99)
[2019-09-22] MEDS: ASCORBIC ACID 500 MG TAB PO SCH ×2 (06:36→15:59)
[2019-09-22] MEDS: PANTOPRAZOLE 40 MG TABLET PO SCH (06:36)
[2019-09-22] MEDS: FERROUS SULFATE 325 MG TAB PO SCH ×2 (06:36→15:59)
[2019-09-22 06:41] LABS: ALT 64 U/L (21-72); AST 31 U/L (17-59); African American GFR (CKD) >90 (>60 ml/min/1.73 sqM); Albumin 2.8 g/dL (3.5-5.0); Alkaline Phosphatase 97 U/L (38-126); Anion Gap 6 mmol/L; Blood Urea Nitrogen 28 mg/dL (9-20); Calcium 8.1 mg/dL (8.4-10.2); Carbon Dioxide 35 mmol/L (22-30); Chloride 100 mmol/L (98-107); Glucose 212 mg/dL (74-99); Non-African American GFR(CKD) >90 (>60 ml/min/1.73 sqM); Potassium 3.8 mmol/L (3.5-5.1); Sodium 141 mmol/L (137-145); Total Bilirubin 1.1 mg/dL (0.2-1.3); Total Protein 5.4 g/dL (6.3-8.2)
[2019-09-22] MEDS: AMIODARONE 200 MG TAB PO SCH (08:08)
[2019-09-22] MEDS: DILTIAZEM ORAL 30 MG TAB PO SCH ×2 (08:08→15:59)
[2019-09-22] MEDS: METOPROLOL TARTRATE 25 MG TAB PO SCH (08:09)
[2019-09-22] MEDS: FUROSEMIDE 10 MG/ML 4 ML VIAL IV SCH (08:09)
[2019-09-22] MEDS: FONDAPARINUX 2.5 MG/0.5 ML SYRINGE SQ SCH (08:09)
[2019-09-22] MEDS: CLOPIDOGREL 75 MG TAB PO SCH (08:09)
[2019-09-22] MEDS: FOLIC ACID-VIT B COMPLEX-VIT C 1 CAP PO SCH (08:09)
[2019-09-22] MEDS: ASPIRIN 325 MG TAB PO SCH (08:09)
[2019-09-22] MEDS: ACETAMINOPHEN TAB 500 MG TAB PO PRN (08:11)
[2019-09-22] MEDS: IPRATROPIUM-ALBUTEROL 3 ML NEB INHALATION SCH ×3 (08:15→16:13)
[2019-09-22 08:30] VITALS: RESP 22; TEMP 98.3
--- NOTE | 2019-09-22 09:14 | XR ---
EXAMINATION TYPE: XR chest 2V DATE OF EXAM: 09/22/2019 COMPARISON: Chest x-ray from yesterday and older studies. HISTORY: Post open cardiac surgery. TECHNIQUE: Frontal and lateral views of the chest are obtained. FINDINGS: Overlying sternal wires are redemonstrated. Overlying EKG leads are again seen. Metallic a ortic valve redemonstrated. Persistent cardiomegaly and central vascular congestion with left greate r than right bibasilar opacities on current study. Right basilar findings slightly improved from prio r. Keyonna B lines left lung periphery remain present . Small bilateral pleural effusions appreciated better on lateral view. IMPRESSION: Suspect persistent CHF exacerbation or fluid overload status as there is cardiomegaly wi th mild central vascular congestion and small bilateral pleural effusions are all redemonstrated. Und erlying left greater than right bibasilar acute atelectasis and/or infiltrate remains present.
[2019-09-22] MEDS ORDERED: SYMBICORT 160-4.5 MCG INHALER INHALATION SCH (09:24)
--- NOTE | 2019-09-22 10:44 | PN ---
PROGRESS NOTE Mr. Nelson is a 69-year-old male who has underwent coronary artery bypass grafting and aortic valve replacement. He is feeling better today. He is ambulating. He is denying any chest pain. He feels stronger. He denies any dizziness or palpitation. He denies any nausea. He was evaluated by the surgical team and scheduled to be discharged home today. He continues to be at this time on aspirin once a day, amiodarone 200 mg twice a day, Lipitor 40 mg daily, diltiazem 30 mg q.8 hours, Plavix 75 mg daily, furosemide 40 mg IV q.12 hours and metoprolol tartrate 25 mg 3 times a day. PHYSICAL EXAMINATION: Blood pressure 125/60 with a heart rate in the 80s. LUNGS: No wheezes. HEART: Regular rate and rhythm, S1, S2. No S3 with systolic murmur, ejection type, no diastolic murmur, no rub. ABDOMEN: Soft, nontender. EXTREMITIES: +1 edema. LAB DATA: Revealed platelet count of 490, hemoglobin of 8.8. BUN and creatinine 28 and 0.73, potassium 3.8. IMPRESSION: 1. Status post redo surgery with aortic valve replacement coronary bypass grafting. 2. Postoperative bleeding requiring repeat surgical intervention, stable. 3. Thrombocytopenia, resolved. 4. Paroxysmal atrial fibrillation. Remains in sinus mechanism. 5. History of diabetes. 6. History of chronic obstructive lung disease. RECOMMENDATION: From the cardiac standpoint stable, will continue to increase his level of activity. I would expect he should be able to be discharged home today and followed as an outpatient. MMODL / IJN: [id number] /
[2019-09-22 11:11] VITALS: BMI 40.8
[2019-09-22] MEDS ORDERED: IBUPROFEN 400 MG TAB PO PRN (11:24)
[2019-09-22 11:33] LABS: Glucose,Whole Blood 142 mg/dL (75-99)
[2019-09-22] MEDS ORDERED: LOSARTAN 25 MG TAB PO SCH (12:00)
[2019-09-22 13:03] LABS: Folate, Serum 13.1 ng/mL; Iron 22 ug/dL (65-175); Total Iron Binding Capacity 265 ug/dL (228-460)
--- NOTE | 2019-09-22 13:27 | P.PN ---
Subjective Progress Note Date: 09/22/19 Principal diagnosis: Multivessel coronary artery disease, non-STEMI, aortic valve stenosis On 2018 patient seen in follow-up on selective care unit, this is postoperative day 10, status post 2 vessel coronary artery bypass grafting, and aortic valve replacement. She is awake and alert, in no acute distress, some exertional dyspnea, but has been tolerating ambulation well, today he is on room air, his pulse ox is 92%, dynamically stable, in sinus mechanism, no fever or chills, lung sounds reveal diminished breath sounds at the bases, no rhonchi, no wheezing, today's labs have been reviewed, white blood cell count is 13.2, hemoglobin is 8.8, sodium is 141, potassium is 3.8, chloride is 100, CO2 35 B1 is 20, creatinine 0.73. he is working on incentive spirometer, achieving 750 ml. Today's chest x-ray showed persistent CHF exacerbation, would overload with mild central vascular congestion and small bilateral pleural effusions. he has been started on IV Lasix 40 mg twice daily Objective - Vital Signs Vital signs: Vital Signs Temp 98.3 F 09/22/19 08:00 Pulse 86 09/22/19 08:00 Resp 22 09/22/19 08:00 BP 125/64 09/22/19 08:00 Pulse Ox 92 L 09/22/19 08:00 Intake & Output 09/21/19 09/22/19 09/22/19 18:59 06:59 18:59 Intake Total 720 Output Total 782 259 9452 Balance 320 -900 -1200 Weight 118.2 kg 118.2 kg Intake: Oral 720 Output: Urine 716 309 2746 Other: Voiding Method Toilet Toilet # Voids 1 1 2 # Bowel Movements 1 ABP, PAP, CO, CI - Last Documented Arterial Blood Pressure 119/71 Pulmonary Artery Pressure 41/24 Cardiac Output 5.5 Cardiac Index 2.5 - Exam GENERAL EXAM: Alert, doesn't, 69-year-old white male, on room air pulse ox of 92%, comfortable in no apparent distress. HEAD: Normocephalic/atraumatic. EYES: Normal reaction of pupils, equal size. Conjunctiva pink, sclera white. NOSE: Clear with pink turbinates. THROAT: No erythema or exudates. NECK: No masses, no JVD, no thyroid enlargement, no adenopathy. CHEST: No chest wall deformity. Symmetrical expansion. Mid sternal incision is clean dry and intact, chest tube insertion sites are clean dry and intact, covered with dressings LUNGS: Equal air entry with no crackles, wheeze, rhonchi or dullness. CVS: Regular rate and rhythm, normal S1 and S2, no gallops, no murmurs, no rubs ABDOMEN: Soft, nontender. No hepatosplenomegaly, normal bowel sounds, no guarding or rigidity. EXTREMITIES: No clubbing, mild generalized upper and lower extremity edema, no cyanosis, 2+ pulses and upper and lower extremities. Left leg incisions clean dry intact MUSCULOSKELETAL: Muscle strength and tone normal. SPINE: No scoliosis or deformity SKIN: No rashes CENTRAL NERVOUS SYSTEM: Alert and oriented -3. No focal deficits, tone is normal in all 4 extremities. PSYCHIATRIC: Alert and oriented -3. Appropriate affect. Intact judgment and insight. - Labs CBC & Chem 7: 09/22/19 06:05 09/22/19 06:05 Labs: Abnormal Lab Results - Last 24 Hours (Table) 09/21/19 09/21/19 09/21/19 Range/Units 06:14 06:14 16:40 WBC (3.8-10.6) k/uL RBC (4.30-5.90) m/uL Hgb (13.0-17.5) gm/dL Hct (39.0-53.0) % RDW (11.5-15.5) % Plt Count (150-450) k/uL Neutrophils # (1.3-7.7) k/uL Haptoglobin 261.0 H (31.2-198.0) mg/dL Carbon Dioxide (22-30) mmol/L BUN (9-20) mg/dL Glucose (74-99) mg/dL POC Glucose (mg/dL) 133 H (75-99) mg/dL Calcium (8.4-10.2) mg/dL Iron 22 L (65-175) ug/dL % Saturation 8.30 L (15.00-50.00) Total Protein (6.3-8.2) g/dL Albumin (3.5-5.0) g/dL Vitamin B12 1159.0 H (200.0-944.0) pg/mL 09/21/19 09/22/1909/22/19 Range/Units 20:52 01:55 06:05 WBC 13.2 H (3.8-10.6) k/uL RBC 2.87 L (4.30-5.90) m/uL Hgb 8.8 L (13.0-17.5) gm/dL Hct 28.1 L (39.0-53.0) % RDW 16.5 H (11.5-15.5) % Plt Count 490 H (150-450) k/uL Neutrophils # 10.3 H (1.3-7.7) k/uL Haptoglobin (31.2-198.0) mg/dL Carbon Dioxide (22-30) mmol/L BUN (9-20) mg/dL Glucose (74-99) mg/dL POC Glucose (mg/dL) 199 H 164 H (75-99) mg/dL Calcium (8.4-10.2) mg/dL Iron (65-175) ug/dL % Saturation (15.00-50.00) Total Protein (6.3-8.2) g/dL Albumin (3.5-5.0) g/dL Vitamin B12 (200.0-944.0) pg/mL 09/22/19 09/22/19 09/22/19 Range/Units 06:05 06:28 11:30 WBC (3.8-10.6) k/uL RBC (4.30-5.90) m/uL Hgb (13.0-17.5) gm/dL Hct (39.0-53.0) % RDW (11.5-15.5) % Plt Count (150-450) k/uL Neutrophils # (1.3-7.7) k/uL Haptoglobin (31.2-198.0) mg/dL Carbon Dioxide 35 H (22-30) mmol/L BUN 28 H (9-20) mg/dL Glucose 212 H (74-99) mg/dL POC Glucose (mg/dL) 200 H 142 H (75-99) mg/dL Calcium 8.1 L (8.4-10.2) mg/dL Iron (65-175) ug/dL % Saturation (15.00-50.00) Total Protein 5.4 L (6.3-8.2) g/dL Albumin 2.8 L (3.5-5.0) g/dL Vitamin B12 (200.0-944.0) pg/mL Microbiology - Last 24 Hours (Table) 09/18/19 08:56 Blood Culture - Preliminary Blood No Growth after 96 hours Assessment and Plan Plan: 1 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 Postop day #10 2 coronary valve stenosis post aortic valve with a bioprostheticvalve. Postop day #9 3 bleeding postoperatively, multifactorial including consumptive thrombocytopenia and the patient required a total of 7 units of packed RBCs, 5 units of fresh frozen plasma, 2 units of platelets and 2 units of cryoprecipitate. The hemoglobin is at 9 4. Shock related to above with bleeding and tamponade physiology, post reexploration and evacuation of blood clots around the pericardium, recovered and output from the chest tube is currently minimal for now. 5 history of ITP postsplenectomy. Platelet counts are stable, improving on Arix tra 6 diabetes mellitus currently on insulin sliding scale coverage 7 obesity 8 obstructive sleep apnea not utilizing any form of CPAP therapy on outpatient basis due to poor tolerability currently off BiPAP and currently on 3 L by nasal cannula 9 acute hypoxic respiratory failure, expected outcome of surgery, improving and currently on 2 L of oxygen by nasal cannula 10 bilateral pleural effusions, expected outcome of surgery, improving 11 blood loss anemia, acute, postop, expected outcome of surgery, stable 12 paroxysmal atrial fibrillation alternating with sinus rhythm 13 leukocytosis, improving, infection is doubtful at age, the white cell count is down to 11.1. No antibiotic treatment for now. Plan: The chest x-ray has been reviewed, showing persistent pulmonary vascular co ngestion, and small bilateral pleural effusions, continues on IV diuretics, is in negative fluid balance, generalized edema is improving, encouraging deep breathing and coughing, signs are stable, patient has been tolerating ambulation, anticipate discharge to acute rehab possibly today I performed a history & physical examination of the patient and discussed their management with my nurse practitioner, Delicia Flores. I reviewed the nurse practitioner's note and agree with the documented findings and plan of care. Lung sounds are positive for basilar crackles. The findings and the impression was discussed with the patient. I attest to the documentation by the nurse practitioner. Time with Patient: Less than 30
[2019-09-22 13:33] VITALS: BP 127/58; PULSE 69
--- NOTE | 2019-09-22 15:37 | P.DS ---
Providers Date of admission: 09/06/19 12:01 Expected date of discharge: 09/22/19 Attending physician: Barry Vela Consults: 09/06/19 11:45 Consult Physician Stat Consulting Provider: Sonia Casillas Consult Reason/Comments: Syncope Do you want consulting provider notified?: Yes Consult Physician Urgent Consulting Provider: Zulma Cabral Consult Reason/Comments: NSTEMI, hx CABG, syncope Do you want consulting provider notified?: Yes 09/09/19 15:02 Consult Physician Urgent Consulting Provider: Barry Vela Consult Reason/Comments: severe , CAD Do you want consulting provider notified?: Already Contacted 09/10/19 10:15 Consult Physician Routine Consulting Provider: Joaquin Ferguson Consult Reason/Comments: patient reports he has a parasite infection, history of splenectomy Do you want consulting provider notified?: Yes 09/10/19 12:31 Consult Physician Routine Consulting Provider: Bharati Robins Consult Reason/Comments: Dental clearance preop aortic valve replacement Do you want consulting provider notified?: Yes 09/10/19 12:32 Consult Physician Routine Consulting Provider: Maikel Damon Consult Reason/Comments: History of ITP, status post splenectomy Do you want consulting provider notified?: Yes 09/10/19 12:46 Consult Physician Routine Consulting Provider: Vincenzo Alberts Consult Reason/Comments: Questionable delusions regarding parasitic infection throughout his body Do you want consulting provider notified?: Already Contacted 09/10/19 12:50 Consult Physician Routine Consulting Provider: Raheem Oquendo Consult Reason/Comments: Preoperative cardiac surgery Do you want consulting provider notified?: Yes 09/11/19 10:33 Consult to Anesthesia Routine Consulting Provider: Anesthesia,Services Consult Reason/Comments: Cardiac Surgery Pre-Op 09/12/19 18:39 Consult Physician Routine Consulting Provider: Nisa Chapa Consult Reason/Comments: med mgmt Do you want consulting provider notified?: Already Contacted 09/18/19 08:29 Consult Physician Routine Consulting Provider: Joaquin Ferguson Consult Reason/Comments: Elevated WBC count, history of splenectomy Do you want consulting provider notified?: Yes Primary care physician: Tim[facility] Course: FINAL DIAGNOSIS: 1. Triple-vessel calcified coronary artery disease, NSTEMI in this admission, status post urgent two-vessel bypass 2. Severe aortic valve stenosis, status post bioprosthetic aortic valve replacement 3. Mild to moderate tricuspid valve regurgitation 4. Hypertension 5. Hyperlipidemia 6. History of ITP status post splenectomy 7. Type 2 diabetes mellitus, hemoglobin A1c 6.6% 8. Morbid obesity 9. Previous tobacco dependence, moderate COPD with FEV1 54% of predicted 10. Postoperative lactic acidosis with metabolic acidosis, resolving 11. Postoperative thrombocytopenia, resolved 12. Postoperative hypotension, resolved 13. Postoperative hypernatremia, resolved 14. Postoperative acute blood loss anemia with postoperative bleeding, status post mediastinal exploration and evacuation of clots 15. Postoperative transaminitis, resolved 16. Postoperative prolonged mechanical ventilation 17. Postoperative atrial fibrillation, currently in normal sinus rhythm 18. Postoperative leukocytosis, expected due to his history of splenectomy PRINCIPAL PROCEDURE: 1. Selective left and right coronary angiogram, left internal mammary artery angiogram performed by Dr. Post. 2. Urgent median sternotomy with redo double vessel coronary artery bypass grafting using the left radial artery from the aorta to the right coronary artery, reverse greater saphenous vein graft from the aorta to the obtuse marginal coronary artery. 3. Aortic valve replacement using a 25 mm pericardial bioprosthesis Inspiris. 4. Endoscopic harvesting of the left radial artery. 5. Endoscopic harvesting of the left greater saphenous vein. 6. Intraoperative graft flow measurements using the [employer] system. 7. Intraoperative transesophageal echocardiogram and epi-aortic scanning. 8. Mediastinal exploration and evacuation of pericardial clots. HISTORY OF PRESENT ILLNESS: This is a 69-year-old gentleman who follows with Dr. Enrrique tran on an outpatient basis. He is a past medical history significant for coronary artery disease, status post coronary artery bypass grafting in 1999 with his left internal mammary artery to the left anterior descending coronary artery, known aortic valve stenosis, history of platelet disorder status post splenectomy, diabetes mellitus type 2 with an admission hemoglobin A1c of 6.6%, hyperlipidemia and a remote history of nicotine dependence in which he quit smoking over 25 years ago. The patient presented to the emergency department here at [facility] on 09/06/2019 with complaints of chest tightness, lightheadedness, syncope, nausea, vomiting and loss of bowel function. The patient had reported he had 3 or 4 syncopal episodes with loss of bowel function since June 2019. In the emergency department 12-lead EKG was completed which showed evidence of possible old myocardial infarction. Serial troponins were completed and were as high as 0.047. A chest x-ray was completed which demonstrated no acute cardiopulmonary process although did demonstrate cardiomegaly. A 2-D echocardiogram was completed which demonstrated moderate concentric left ventricular hypertrophy, moderate to severe aortic valve sclerosis, severe aortic valve stenosis, a peak gradient across aortic valve of 68.08 mmHg and a mean gradient of 47.03 mmHg, mild to moderate tricuspid valve regurgitation and an overall left ventricular systolic function to be low normal with an ejection fraction between 50 and 55%. Subsequently due to the patient's presenting symptoms, positive troponins and 2-D echocardiogram results a consult was placed to Dr. Post from [facility] for further workup and evaluation. The patient was admitted to the hospital for further evaluation and workup. HOSPITAL COURSE: The patient underwent a cardiac catheterization performed by Dr. Post which demonstrated a 60% stenosis to his left main coronary artery, a 90% stenosis to his right coronary artery, a 70% stenosis to a circumflex coronary artery and a totally occluded proximal left anterior descending coronar y artery. For further evaluation a transesophageal echocardiogram was also completed which demonstrated a trileaflet aortic valve with severe aortic valve stenosis with evidence of a peak gradient of 64 mmHg and a mean gradient of 44 mmHg, mild to moderate tricuspid valve regurgitation and an ejection fraction in the range of 55%. Due to the findings on the cardiac catheterization and transesophageal echocardiogram a consult was placed Dr. Barry gerber from cardiothoracic surgery for further evaluation and treatment. Dr. Vela reviewed the cardiac catheterization and transesophageal echocardiogram results with the patient and his and an urgent myocardial revascularization surgery with aortic valve replacement was recommended. Risks and benefits of the surgery including the STS risk score were discussed with the patient by Dr. Vela and the patient went to proceed with undergoing a myocardial revascularization surgery and aortic valve surgery. After obtaining consent, the patient was taken to the preoperative area on 09/12/2019, prepared in the usual fashion and subsequently taken to the operating room where Dr. Barry Vela performed an urgent median sternotomy with redo double vessel coronary artery bypass grafting using the left radial artery from the aorta to the right coronary artery, reverse greater saphenous vein graft from the aorta to the obtuse marginal coronary artery, with endoscopic harvesting of the left radial artery, endoscopic harvesting of the left greater saphenous vein, intraoperative transesophageal echocardiogram, graft flow measurements using the [employer] system and epi-aortic scanning. Upon completion of the surgery he was transferred to the cardiovascular intensive care unit where he was recovered, monitored hemodynamically and where he progressed cardiac rehabilitation phase 1. He had somewhat of a stormy postoperative course requiring prolonged mechanical ventilator support and due to some postoperative acute blood loss anemia was taken back to the operating room where he underwent a mediastinal exploration and evacuation of pericardial clots. He was subsequently extubated on postoperative day #2, all lines, tubes and supportive drips were discontinued when appropriate and he was transferred to the cardiac stepdown unit for further rehabilitation needs. His oxygen was titrated down, he continued to work with physical, occupational therapy and cardiac rehabilitation, he was tolerating oral diet, his pain was well controlled and he was ready to be discharged to [facility] for further rehabilitation needs on postoperative day #10. He has received verbal and written instructions regarding his medications, activity restrictions, signs and symptoms requiring physician notification and his follow-up appointments. COMPLICATIONS: His postoperative period was complicated by some acute blood loss anemia with postoperative bleeding requiring mediastinal reexploration and evacuation of clots, prolonged mechanical ventilation, postoperative atrial fibrillation which were treated accordingly. CONSULTATIONS: 1. Dr. Post for cardiology management. 2. Dr. Casillas for neurology management. 3. Dr. Daveor medical management. 4. Dr. Ferguson from infectious disease management. 5. Dr. Alberts for mental health management. 6. Dr. Boggs for hematology management. 7. Dr. Ervin for dental clearance. DISCHARGE INSTRUCTIONS: 1. No driving for 4 weeks, or until physician gives their ok. 2. The patient should sleep in their own bed, no medical bed needed. 3. Stairs are not an issue. If the bedroom is upstairs, it is advised that the patient go up at night and down in the morning for the first week. Go slowly, using handrail and take 1 step at a time. 4. KORTNEY hose are to be worn for 30 days or until physician discontinues. 5. Heart hugger is to be worn 100% of the time until physician discontinues.(except when showering) 6. No lifting, pushing, or pulling more than 10 pounds for 12 weeks. The physician will advise of any restriction changes. 7. The patient is expected to continue the prescribed walking program. 8. Continue pain control per as needed orders. 9. Continue with incentive spirometry and splinting/heart hugger until otherwise directed by the physician. 10. Must shower daily using liquid antibacterial soap and a separate white washcloth for each individual incision. 11. Routine sternal incision care, no ointments, lotions or powders on the incisions. 12. Please notify surgeon/nurse practitioner for temperature greater than 101F or purulent drainage from incisions 13. Prescriptions for first 30 days given per cardiac surgery service. After 30 days, all prescription refills obtained through cardiology/primary care physician. 14. A red arm and has been placed on this patient it should be worn for 30 days post surgery and will be removed by the cardiothoracic surgeons. If an ER visit is necessary, please make sure the number on the red arm band is called. REHAB/HOME HEALTH SERVICES TO PROVIDE: RN SKILLED HOME CARE SERVICES FOR POST-OP SURGICAL PATIENTS WITH THE FOLLOWING: Coronary Artery Bypass Surgery (CABG), Mitral Valve Replacement/Repair ( MVR), Aortic Valve Replacement/Repair (AVR) RN TO CONTINUE EDUCATION FROM ``ROAD TO A HEALTH HEART PATIENT EDUCATION MANUAL" (GIVEN TO PATIENT IN THE HOSPITAL) MEDICATION RECONCILIATION WITH EDUCATION NEEDED ON FIRST HOME VISIT EMPHASIZE IMPORTANCE OF WEARING BREAST SUPPORT/HEART HUGGER ENCOURAGE USE OF INCENTIVE SPIROMETER 10 X EVERY HOUR WHILE AWAKE ENCOURAGE UTILIZATION OF LOWER EXTREMITY COMPRESSION STOCKINGS/KORTNEY HOSE and ELEVATE LEGS ABOVE LEVEL OF HEART WHILE AT REST. ENCOURAGE AMBULATION 3-5x/day INCREASING TOLERATES, WHILE AVOID EXTREMES IN TEMPERATURE FREQUENCY: RN TO OPEN THE PATIENT WITHIN 24 HOURS OF DISCHARGE FROM THE HOSPITAL WITH TELEHEALTH [place]STALL[place] [facility] TO VISIT 2-3 X A WEEK FOR 4 WEEKS ESTABLISHED BY PATIENT NEEDS. LABORATORY: CBC, CMP TO BE DRAWN ON THE THIRD DAY POST DISCHARGE, (RAN STAT) FAX RESULTS TO [phone]. TELEHEALTH PARAMETERS: WEIGHT: NOTIFY MD OF WEIGHT GAIN OF 2 LBS IN 24 HOURS OR 5 LBS IN ONE WEEK HR: NOTIFY MD OF HR <55 BPM OR HR>100 BPM BP: NOTIFY MD IF BP <90/55 OR BP>140/100 O2 SAT: NOTIFY MD IF PO2<93% ON ROOM AIR SEND TELEHEALTH REPORT TO MORTGAGE MANAGER AND CARDIOVASCULAR SURGEON THE FIRST WEEK OF CARE AND THEN BI-WEEKLY. PLEASE ADDITIONALLY COMMUNICATE ANY ABNORMALS AND NEW FINDINGS TO THE SURGEONS OFFICE. The patient is being discharged to [facility] for further rehabilitation needs and will be discharged on amiodarone 200 mg by mouth twice a day which is to be decreased to amiodarone 200 mg by mouth daily on 09/27/2019, then discontinue the amiodarone on 10/04/2019. The patient also had a radial artery harvest completed and will be discharged home on Cardizem CD 120 mg by mouth daily. The Cardizem is not to be discontinued unless cleared by cardiothoracic surgery. This is to prevent radial artery spasm. Patient Condition at Discharge: Stable Plan - Discharge Summary Discharge Rx Participant: No New Discharge Prescriptions: New Aspirin 325 mg PO DAILY tab Diltiazem Cd [Cardizem Cd] 120 mg PO DAILY #30 cap.er.24h Amiodarone [Cordarone] 200 mg PO BID tab Losartan [Cozaar] 25 mg PO DAILY@1200 tab Ferrous Sulfate [Iron (65 MG Elemental)] 325 mg PO BID-W/MEALS tab Furosemide [Lasix] 40 mg PO DAILY #30 tablet Atorvastatin [Lipitor] 40 mg PO HS tab Metoprolol Tartrate [Lopressor] 25 mg PO TID tab Magnesium Hydroxide [Milk of Magnesia Concentrate] 2,400 mg PO DAILY PRN ml PRN Reason: Constipation Folic Acid-Vit B Complex-Vit C [Nephrocaps] 1 each PO DAILY cap Clopidogrel [Plavix] 75 mg PO DAILY tab Pantoprazole [Protonix] 40 mg PO AC-BRKFST tablet.dr Hairstonnozachary-Docusate Sodium [Senokot-S] 2 each PO HS tab Budesonide-Formot 160-4.5 Mcg [Symbicort 160-4.5 Mcg Inhaler] 2 puff INHALATION RT-BID puff Acetaminophen Tab [Tylenol] 1,000 mg PO Q6HR PRN tab PRN Reason: Fever and/ or MILD Pain Ascorbic Acid [Vitamin C] 500 mg PO BID-W/MEALS tab Metolazone [Zaroxolyn] 5 mg PO DAILY #5 tablet INSULIN ASPART (NovoLOG) [NovoLOG (formulary)] 0 unit SQ ACHS vial Continue metFORMIN HCL 1,000 mg PO BID Cholecalciferol [Vitamin D3 (25 Mcg = 1000 Iu)] 1,000 unit PO DAILY Vitamin B Complex 1 cap PO DAILY Discontinued Ubidecarenone [Co Q-10] 100 mg PO DAILY [place]-3 Fatty Acids [[place]-3] 1,000 mg PO DAILY Magnesium 200 mg PO DAILY Milk Thistle 150 mg PO DAILY Krill Oil 500 mg PO DAILY Gelatin 650mg 1,300 mg PO DAILY Calcium Carbonate [Calcium] 600 mg PO DAILY Discharge Medication List metFORMIN HCL 1,000 mg PO BID 10/11/14 [History] Cholecalciferol [Vitamin D3 (25 Mcg = 1000 Iu)] 1,000 unit PO DAILY 09/06/19 [History] Vitamin B Complex 1 cap PO DAILY 09/06/19 [History] Acetaminophen Tab [Tylenol] 1,000 mg PO Q6HR PRN tab 09/22/19 [Rx] Amiodarone [Cordarone] 200 mg PO BID tab 09/22/19 [Rx] Ascorbic Acid [Vitamin C] 500 mg PO BID-W/MEALS tab 09/22/19 [Rx] Aspirin 325 mg PO DAILY tab 09/22/19 [Rx] Atorvastatin [Lipitor] 40 mg PO HS tab 09/22/19 [Rx] Budesonide-Formot 160-4.5 Mcg [Symbicort 160-4.5 Mcg Inhaler] 2 puff INHALATION RT-BID puff 09/22/19 [Rx] Clopidogrel [Plavix] 75 mg PO DAILY tab 09/22/19 [Rx] Diltiazem Cd [Cardizem Cd] 120 mg PO DAILY #30 cap.er.24h 09/22/19 [Rx] Ferrous Sulfate [Iron (65 MG Elemental)] 325 mg PO BID-W/MEALS tab 09/22/19 [Rx] Folic Acid-Vit B Complex-Vit C [Nephrocaps] 1 each PO DAILY cap 09/22/19 [Rx] Furosemide [Lasix] 40 mg PO DAILY #30 tablet 09/22/19 [Rx] INSULIN ASPART (NovoLOG) [NovoLOG (formulary)] 0 unit SQ ACHS vial 09/22/19 [Rx] Losartan [Cozaar] 25 mg PO DAILY@1200 tab 09/22/19 [Rx] Magnesium Hydroxide [Milk of Magnesia Concentrate] 2,400 mg PO DAILY PRN ml 09/22/19 [Rx] Metolazone [Zaroxolyn] 5 mg PO DAILY #5 tablet 09/22/19 [Rx] Metoprolol Tartrate [Lopressor] 25 mg PO TID tab 09/22/19 [Rx] Pantoprazole [Protonix] 40 mg PO AC-BRKFST tablet. 09/22/19 [Rx] Sennosides-Docusate Sodium [Senokot-S] 2 each PO HS tab 09/22/19 [Rx] Follow up Appointment(s)/Referral(s): [facility], [NON-STAFF] - Chaitanya Post MD [STAFF PHYSICIAN] - 1 Week Barry Vela MD [STAFF PHYSICIAN] - 10/10/19 10:30 am Timo Mayorga III, MD [Primary Care Provider] - 1-2 days Raheem Oquendo DO [Doctor of Osteopathic Medicine] - 1 Week Ambulatory/Diagnostic Orders: Complete Blood Count w/diff [LAB.AMB] Time Frame: 09/25/19, Facility: [facility], Location: Laboratory [facility] Comprehensive Metabolic Panel [LAB.AMB] Time Frame: 09/25/19, Facility: [facility], Location: Laboratory [facility] Patient Instructions/Handouts: Aortic Valve Replacement (DC), Sternal Precautions (GEN), CABG (Coronary Artery Bypass Graft) (DC) Activity/Diet/Wound Care/Special Instructions: DISCHARGE INSTRUCTIONS: 1. No driving for 4 weeks, or until physician gives their ok. 2. The patient should sleep in their own bed, no medical bed needed. 3. Stairs are not an issue. If the bedroom is upstairs, it is advised that the patient go up at night and down in the morning for the first week. Go slowly, using handrail and take 1 step at a time. 4. KORTNEY hose are to be worn for 30 days or until physician discontinues. 5. Heart hugger is to be worn 100% of the time until physician discontinues.(except when showering) 6. No lifting, pushing, or pulling more than 10 pounds for 12 weeks. The physician will advise of any restriction changes. 7. The patient is expected to continue the prescribed walking program. 8. Continue pain control per as needed orders. 9. Continue with incentive spirometry and splinting/heart hugger until otherwise directed by the physician. 10. Must shower daily using liquid antibacterial soap and a separate white washcloth for each individual incision. 11. Routine sternal incision care, no ointments, lotions or powders on the incisions. 12. Please notify surgeon/nurse practitioner for temperature greater than 101F or purulent drainage from incisions 13. Prescriptions for first 30 days given per cardiac surgery service. After 30 days, all prescription refills obtained through cardiology/primary care physician. 14. A red arm and has been placed on this patient it should be worn for 30 days post surgery and will be removed by the cardiothoracic surgeons. If an ER visit is necessary, please make sure the number on the red arm band is called. 15. Check Accu-Cheks before meals and at bedtime. REHAB/HOME HEALTH SERVICES TO PROVIDE: RN SKILLED HOME CARE SERVICES FOR POST-OP SURGICAL PATIENTS WITH THE FOLLOWING: Coronary Artery Bypass Surgery (CABG), Mitral Valve Replacement/Repai r ( MVR), Aortic Valve Replacement/Repair (AVR) RN TO CONTINUE EDUCATION FROM ``ROAD TO A HEALTH HEART PATIENT EDUCATION MANUAL" (GIVEN TO PATIENT IN THE HOSPITAL) MEDICATION RECONCILIATION WITH EDUCATION NEEDED ON FIRST HOME VISIT EMPHASIZE IMPORTANCE OF WEARING BREAST SUPPORT/HEART HUGGER ENCOURAGE USE OF INCENTIVE SPIROMETER 10 X EVERY HOUR WHILE AWAKE ENCOURAGE UTILIZATION OF LOWER EXTREMITY COMPRESSION STOCKINGS/KORTNEY HOSE and ELEVATE LEGS ABOVE LEVEL OF HEART WHILE AT REST. ENCOURAGE AMBULATION 3-5x/day INCREASING TOLERATES, WHILE AVOID EXTREMES IN TEMPERATURE FREQUENCY: RN TO OPEN THE PATIENT WITHIN 24 HOURS OF DISCHARGE FROM THE HOSPITAL WITH TELEHEALTH [place]STALLED [place] [facility] [place] RN TO VISIT 2-3 X A WEEK FOR 4 WEEKS ESTABLISHED BY PATIENT NEEDS. LABORATORY: CBC, CMP TO BE DRAWN ON THE THIRD DAY POST DISCHARGE, (RAN STAT) FAX RESULTS TO [phone]. TELEHEALTH PARAMETERS: WEIGHT: NOTIFY MD OF WEIGHT GAIN OF 2 LBS IN 24 HOURS OR 5 LBS IN ONE WEEK HR: NOTIFY MD OF HR <55 BPM OR HR>100 BPM BP: NOTIFY MD IF BP <90/55 OR BP>140/100 O2 SAT: NOTIFY MD IF PO2<93% ON ROOM AIR SEND TELEHEALTH REPORT TO MORTGAGE MANAGER AND CARDIOVASCULAR SURGEON THE FIRST WEEK OF CARE AND THEN BI-WEEKLY. PLEASE ADDITIONALLY COMMUNICATE ANY ABNORMALS AND NEW FINDINGS TO THE SURGEONS OFFICE. Discharge Disposition: TRANSFER TO SNF/ECF
[2019-09-22] MEDS ORDERED: METOPROLOL TARTRATE 25 MG TAB PO SCH (16:00)
--- NOTE | 2019-09-22 19:37 | P.PN ---
Subjective Progress Note Date: 09/22/19 Principal diagnosis: Severe aortic stenosis and status post CABG and aortic valve replacement Mr. Nelson is a 69-year-old male with a past medical history of coronary artery disease status post CABG, aortic stenosis, type 2 diabetes mellitus, hyperlipidemia, obstructive sleep apnea on CPAP coming to the hospital with a chief complaint of syncope. Patient underwent cardiac catheterization and DAMARI was found to have severe aortic stenosis. Patient had coronary artery bypass grafting along with aortic wall replacement on 09/12/2019. Postop patient had bleeding in the retrocardiac area so he was taken again for evacuation of the clots. Patient received multiple blood products during the procedure. He had a very rough postoperative recovery. On 09/21/19 : Patient is post op day #9 . Sitting up in a chair by the bedside. He still complains of difficulty in breathing and lower extremity edema. No significant issues reported by nursing staff overnight. Patient had a chest x- ray showing improvement in the interstitial edema and the right basilar opacity. Patient denies having any fevers chills or rigors. No complaints of chest pain or palpitations. No abdominal pain nausea vomiting or diarrhea. No dysuria or hematuria. On 09/22/19 - Patient is postop #10. He is sitting up in a chair by the bedside. He still complains of mild difficulty in breathing. Chest x-ray done showing mild improvement in the interstitial edema and a right basilar opacity. Patient denies any fevers chills or rigors. Mild swelling of his lower extremities. No dysuria or hematuria. Planning for discharge today. Patient's medications and labs have been reviewed. Active Medications Acetaminophen (Tylenol Tab) 1,000 mg PO Q6HR PRN PRN Reason: Fever and/ or Pain Last Admin: 09/20/19 19:53 Dose: 1,000 mg Documented by: Albuterol/Ipratropium (Duoneb 0.5 Mg-3 Mg/3 Ml Soln) 3 ml INHALATION RT-Q2H PRN PRN Reason: Shortness Of Breath Or Wheezing Albuterol/Ipratropium (Duoneb 0.5 Mg-3 Mg/3 Ml Soln) 3 ml INHALATION RT-QID [facility] Last Admin: 09/21/19 15:41 Dose: Not Given Documented by: Amiodarone HCl (Cordarone) 200 mg PO BID [facility] Last Admin: 09/21/19 08:21 Dose: 200 mg Documented by: Ascorbic Acid (Vitamin C) 500 mg PO BID-W/MEALS [facility] Last Admin: 09/21/19 17:30 Dose: 500 mg Documented by: Aspirin (Aspirin) 325 mg PO DAILY [facility] Last Admin: 09/21/19 08:21 Dose: 325 mg Documented by: Atorvastatin Calcium (Lipitor) 40 mg PO HS [facility] Last Admin: 09/20/19 19:51 Dose: 40 mg Documented by: Benzocaine/Menthol (Cepacol Lozenge) 1 each MUCOUS MEM Q2H PRN PRN Reason: Sore Throat Clopidogrel Bisulfate (Plavix) 75 mg PO DAILY [facility] Last Admin: 09/21/19 08:21 Dose: 75 mg Documented by: Diltiazem HCl (Cardizem Oral) 30 mg PO Q8HR [facility] Last Admin: 09/21/19 15:41 Dose: 30 mg Documented by: Ferrous Sulfate (Feosol) 325 mg PO BID-W/MEALS [facility] Last Admin: 09/21/19 17:30 Dose: 325 mg Documented by: Fondaparinux (Arixtra) 2.5 mg SQ DAILY [facility] Last Admin: 09/21/19 08:21 Dose: 2.5 mg Documented by: Furosemide (Lasix) 40 mg IV BID [facility] Last Admin: 09/21/19 08:21 Dose: 40 mg Documented by: Amiodarone HCl 150 mg/ (Dextrose/Water) 103 mls @ 618 mls/hr IV .Q10M PRN; Protocol PRN Reason: A.FIB/FLUTTER Last Admin: 09/14/19 16:50 Dose: 618 mls/hr Documented by: Insulin Aspart (Novolog) 0 unit SQ [id number] [facility]; Protocol Last Admin: 09/21/19 17:30 Dose: 1 unit Documented by: Magnesium Hydroxide (Milk Of Magnesia) 2,400 mg PO DAILY PRN PRN Reason: Constipation Last Admin: 09/20/19 14:14 Dose: 2,400 mg Documented by: Metoclopramide HCl (Reglan) 10 mg IVP Q4H PRN PRN Reason: Nausea And Vomiting Metoprolol Tartrate (Lopressor) 25 mg PO BID [facility] Last Admin: 09/21/19 08:21 Dose: 25 mg Documented by: Miscellaneous Information (Potassium Per Protocol) 1 each MISCELLANE DAILY PRN; Protocol PRN Reason: Per Protocol Miscellaneous Information (Magnesium Per Protocol) 1 each MISCELLANE DAILY PRN; Protocol PRN Reason: Per Protocol Miscellaneous Information (Phosphorus Per Protocol) 1 each MISCELLANE DAILY PRN; Protocol PRN Reason: Per Protocol Multivit/Ca Carb/B Cmplx/FA/Prenat (Nephrocaps) 1 each PO DAILY [facility] Last Admin: 09/21/19 08:23 Dose: 1 each Documented by: Ondansetron HCl (Zofran) 4 mg IVP Q6HR PRN PRN Reason: Nausea And Vomiting Last Admin: 09/17/19 19:22 Dose: 4 mg Documented by: Pantoprazole Sodium (Protonix) 40 mg PO AC-BRKFST [facility] Last Admin: 09/21/19 06:17 Dose: 40 mg Documented by: Senna/Docusate Sodium (Senokot-S) 2 each PO HS [facility] Last Admin: 09/20/19 19:51 Dose: 2 each Documented by: Sodium Chloride (Saline Flush) 10 ml IV BID [facility] Last Admin: 09/21/19 08:25 Dose: 10 ml Documented by: Objective - Vital Signs Vital signs: Vital Signs Temp 98.3 F 09/22/19 08:00 Pulse 69 09/22/19 12:00 Resp 22 09/22/19 12:00 BP 127/58 09/22/19 12:00 Pulse Ox 92 L 09/22/19 12:00 Intake & Output 09/21/19 09/22/19 09/22/19 18:59 06:59 18:59 Intake Total 720 Output Total 704 861 5137 Balance 320 -900 -1200 Weight 118.2 kg 118.2 kg Intake: Oral 720 Output: Urine 664 440 1968 Other: Voiding Method Toilet Toilet # Voids 1 1 2 # Bowel Movements 1 ABP, PAP, CO, CI - Last Documented Arterial Blood Pressure 119/71 Pulmonary Artery Pressure 41/24 Cardiac Output 5.5 Cardiac Index 2.5 - Exam GEN. APPEARANCE: alert, in no apparent distress HEENT : No pallor. No icterus. Pupils equal and round and reactive to light. No thyromegaly. RESPIRATORY EXAM: normal lung sounds bilaterally. Few crackles at the lower lung bases. CARDIOVASCULAR EXAM: regular rate, normal rhythm, normal heart sounds. Grade 3 systolic murmur, loudest at aortic area. GI/ABDOMINAL EXAM: soft, normal bowel sounds. Nontender. No guarding or rigidity. EXTREMITIES EXAM: Pitting edema bilaterally. Skin peeling off on the left lower extremity NEUROLOGICAL EXAM: alert, oriented X3, no focal deficits. - Labs CBC & Chem 7: 09/22/19 06:05 09/22/19 06:05 Labs: Abnormal Lab Results - Last 24 Hours (Table) 09/21/19 09/21/19 09/21/19 Range/Units 06:14 06:14 16:40 WBC (3.8-10.6) k/uL RBC (4.30-5.90) m/uL Hgb (13.0-17.5) gm/dL Hct (39.0-53.0) % RDW (11.5-15.5) % Plt Count (150-450) k/uL Neutrophils # (1.3-7.7) k/uL Haptoglobin 261.0 H (31.2-198.0) mg/dL Carbon Dioxide (22-30) mmol/L BUN (9-20) mg/dL Glucose (74-99) mg/dL POC Glucose (mg/dL) 133 H (75-99) mg/dL Calcium (8.4-10.2) mg/dL Iron 22 L (65-175) ug/dL % Saturation 8.30 L (15.00-50.00) Total Protein (6.3-8.2) g/dL Albumin (3.5-5.0) g/dL Vitamin B12 1159.0 H (200.0-944.0) pg/mL 09/21/19 09/22/19 09/22/19 Range/Units 20:52 01:55 06:05 WBC 13.2 H (3.8-10.6) k/uL RBC 2.87 L (4.30-5.90) m/uL Hgb 8.8 L (13.0-17.5) gm/dL Hct 28.1 L (39.0-53.0) % RDW 16.5 H (11.5-15.5) % Plt Count 490 H (150-450) k/uL Neutrophils # 10.3 H (1.3-7.7) k/uL Haptoglobin (31.2-198.0) mg/dL Carbon Dioxide (22-30) mmol/L BUN (9-20) mg/dL Glucose (74-99) mg/dL POC Glucose (mg/dL) 199 H 164 H (75-99) mg/dL Calcium (8.4-10.2) mg/dL Iron (65-175) ug/dL % Saturation (15.00-50.00) Total Protein (6.3-8.2) g/dL Albumin (3.5-5.0) g/dL Vitamin B12 (200.0-944.0) pg/mL 09/22/19 09/22/19 09/22/19 Range/Units 06:05 06:28 11:30 WBC (3.8-10.6) k/uL RBC (4.30-5.90) m/uL Hgb (13.0-17.5) gm/dL Hct (39.0-53.0) % RDW (11.5-15.5) % Plt Count (150-450) k/uL Neutrophils # (1.3-7.7) k/uL Haptoglobin (31.2-198.0) mg/dL Carbon Dioxide 35 H (22-30) mmol/L BUN 28 H (9-20) mg/dL Glucose 212 H (74-99) mg/dL POC Glucose (mg/dL) 200 H 142 H (75-99) mg/dL Calcium 8.1 L (8.4-10.2) mg/dL Iron (65-175) ug/dL % Saturation (15.00-50.00) Total Protein 5.4 L (6.3-8.2) g/dL Albumin 2.8 L (3.5-5.0) g/dL Vitamin B12 (200.0-944.0) pg/mL Microbiology - Last 24 Hours (Table) 09/18/19 08:56 Blood Culture - Preliminary Blood No Growth after 96 hours Assessment and Plan Assessment: ASSESSMENT Severe aortic stenosis status post CABG and bioprosthetic wall replacement - postop day #9 Non-ST elevation TN Severe aortic stenosis Mild to moderate tricuspid regurgitation Postoperative bleeding status post exploration and evacuation of blood clots History of idiopathic thrombocytopenic purpura Respiratory failure postoperatively patient - resolved Bilateral pleural effusions Proximal A. fib on amiodarone Postoperative shock Coronary artery disease status post CABG Type 2 diabetes mellitus Hypertension Hyperlipidemia Obstructive sleep apnea on CPAP PLAN: Patient's chest x-ray showed improvement in interstitial edema. Continue with the current medication regimen. Discussed with CT surgery, nurse practitioner Lavon Clark, regarding discharge medications. Patient is advised to be continued on metformin as his hemoglobin A1c is 6.9 and his creatinine is within normal limits. Patient is encouraged to continue incentive spirometry and ambulation. Planning for transferring the patient to [facility] today.
--- NOTE | 2019-09-23 15:38 | CDI ---
Documentation Clarification Form Date: 09/23/19 From: Brandi Abad Phone: If you have a question about this query, please contact Marian Silveira, Act English Tutor at [phone] between 8am and 5pm. Admit Date: 09/06/19 Discharge Date: 09/22/19 Patient Name: Joseph Nelson Visit Number: [id number] ATTENTION: The Clinical Documentation Specialists (CDI) and [facility] Coding Staff appreciate your assistance in clarifying documentation. Please respond to the clarification below the line at the bottom and electronically sign. The CDI & [facility] Coding staff will review the response and follow-up if needed. Please note: Queries are made part of the Legal Health Record. If you have any questions, please contact the author of this message via ITS. Dear Dr. Barry Vela, The diagnosis persistent CHF exacerbation was documented in the 09/[address] Chan, but is not noted in subsequent documentation. History/Risk Factors: CAD, Aortic stenosis, DM, HTN Clinical Indicators: 09/19 CXR impression: findings consistent with CHF exacerbation remain present as there is cardiomegaly with central vascular congestion and interstitial edema along with small bilateral pleural effusions all are redemonstrated. 09/22 CXR impression: Suspect persistent CHF exacerbation of fluid overload status as there is cardiomegaly with mild central vascular congestion and small bilateral pleural effusions are all redemonstrated. Echo: Right ventricular systolic pressure is normal at <35 mmHg. Left ventricular systolic function is low-normal, EF between 50-55% Treatment: IV Lasix 40 mg given on 09/18 X 2 & 09/22 x 1, discharged on Lasix 40 mg po Please clarify the type of CHF: Systolic Heart Failure Diastolic Heart Failure Systolic & Diastolic Heart Failure Unable to Determine Other, please specify diastolic heart failure MTDD
== END 2019-09-22 17:19 | DRG 216 ==
LOC: EC 09:04 → 3SCARD 12:01 → 2SICU 09-12 09:13 → 3SCARD 09-20 03:50
PROVIDERS: ADMIT Hospitalist; ATTEND Surgery
PROC: B2111ZZ Fluoroscopy of Multiple Coronary Arteries using Low Osmolar Contrast (ICD-10-PCS; 2019-09-09)
PROC: B2181ZZ Fluoroscopy of Left Internal Mammary Bypass Graft using Low Osmolar Contrast (ICD-10-PCS; 2019-09-09)
PROC: B24BZZ4 Ultrasonography of Heart with Aorta, Transesophageal (ICD-10-PCS; 2019-09-09)
PROC: B44HZZZ Ultrasonography of Bilateral Lower Extremity Arteries (ICD-10-PCS; 2019-09-10)
PROC: 03BC4ZZ Excision of Left Radial Artery, Percutaneous Endoscopic Approach (ICD-10-PCS; 2019-09-12)
PROC: 06BQ4ZZ Excision of Left Saphenous Vein, Percutaneous Endoscopic Approach (ICD-10-PCS; 2019-09-12)
PROC: 5A1221Z Performance of Cardiac Output, Continuous (ICD-10-PCS; 2019-09-12)
PROC: 4A1335C Monitoring of Arterial Flow, Coronary, Percutaneous Approach (ICD-10-PCS; 2019-09-12)
PROC: B246ZZ4 Ultrasonography of Right and Left Heart, Transesophageal (ICD-10-PCS; 2019-09-12)
PROC: 5A1945Z Respiratory Ventilation, 24-96 Consecutive Hours (ICD-10-PCS; 2019-09-12)
PROC: 30243K1 Transfusion of Nonautologous Frozen Plasma into Central Vein, Percutaneous Approach (ICD-10-PCS; 2019-09-12)
PROC: 30243N1 Transfusion of Nonautologous Red Blood Cells into Central Vein, Percutaneous Approach (ICD-10-PCS; 2019-09-12)
PROC: 30243R1 Transfusion of Nonautologous Platelets into Central Vein, Percutaneous Approach (ICD-10-PCS; 2019-09-12)
PROC: 30243M1 Transfusion of Nonautologous Plasma Cryoprecipitate into Central Vein, Percutaneous Approach (ICD-10-PCS; 2019-09-12)
PROC: 02RF08Z Replacement of Aortic Valve with Zooplastic Tissue, Open Approach (ICD-10-PCS; principal; 2019-09-12 08:00)
PROC: 02100AW Bypass Coronary Artery, One Artery from Aorta with Autologous Arterial Tissue, Open Approach (ICD-10-PCS; 2019-09-12 08:00)
PROC: 021009W Bypass Coronary Artery, One Artery from Aorta with Autologous Venous Tissue, Open Approach (ICD-10-PCS; 2019-09-12 08:00)
PROC: 0W9C0ZZ Drainage of Mediastinum, Open Approach (ICD-10-PCS; 2019-09-13)
PROC: 5A09457 Assistance with Respiratory Ventilation, 24-96 Consecutive Hours, Continuous Positive Airway Pressure (ICD-10-PCS; 2019-09-14)
PROC: 05HY33Z Insertion of Infusion Device into Upper Vein, Percutaneous Approach (ICD-10-PCS; 2019-09-17)
DX: I21.4 Non-ST elevation (NSTEMI) myocardial infarction (principal); T81.19XA Other postprocedural shock, initial encounter; J96.01 Acute respiratory failure with hypoxia; I50.31 Acute diastolic (congestive) heart failure; I31.4 Cardiac tamponade; Z68.41 Body mass index [BMI] 40.0-44.9, adult; I97.611 Postprocedural hemorrhage of a circulatory system organ or structure following cardiac bypass; F05 Delirium due to known physiological condition; D62 Acute posthemorrhagic anemia; E87.0 Hyperosmolality and hypernatremia; E87.1 Hypo-osmolality and hyponatremia; E87.4 Mixed disorder of acid-base balance; D68.9 Coagulation defect, unspecified; E66.01 Morbid (severe) obesity due to excess calories; E11.42 Type 2 diabetes mellitus with diabetic polyneuropathy; I48.0 Paroxysmal atrial fibrillation; I11.0 Hypertensive heart disease with heart failure; D69.59 Other secondary thrombocytopenia; J44.9 Chronic obstructive pulmonary disease, unspecified; I08.2 Rheumatic disorders of both aortic and tricuspid valves; F22 Delusional disorders; I25.10 Atherosclerotic heart disease of native coronary artery without angina pectoris; N50.89 Other specified disorders of the male genital organs; E78.5 Hyperlipidemia, unspecified; G47.33 Obstructive sleep apnea (adult) (pediatric); K12.0 Recurrent oral aphthae; G93.0 Cerebral cysts; F45.9 Somatoform disorder, unspecified; K44.9 Diaphragmatic hernia without obstruction or gangrene; F41.9 Anxiety disorder, unspecified; R74.0 Nonspecific elevation of levels of transaminase and lactic acid dehydrogenase [LDH]; D72.828 Other elevated white blood cell count; M25.569 Pain in unspecified knee; M54.5 Low back pain; I25.2 Old myocardial infarction; Z79.84 Long term (current) use of oral hypoglycemic drugs; Z79.899 Other long term (current) drug therapy; Z71.3 Dietary counseling and surveillance; Z87.891 Personal history of nicotine dependence; Z90.49 Acquired absence of other specified parts of digestive tract; Z95.1 Presence of aortocoronary bypass graft; Z90.81 Acquired absence of spleen; Z98.890 Other specified postprocedural states; Z99.89 Dependence on other enabling machines and devices; Z86.2 Personal history of diseases of the blood and blood-forming organs and certain disorders involving the immune mechanism; Z82.49 Family history of ischemic heart disease and other diseases of the circulatory system; Y83.2 Surgical operation with anastomosis, bypass or graft as the cause of abnormal reaction of the patient, or of later complication, without mention of misadventure at the time of the procedure; Y92.230 Patient room in hospital as the place of occurrence of the external cause
CPT/HCPCS: 36410; 36415; 36430; 70450; 70486; 71045; 71046; 71275; 72125; 76937; 80048; 80053; 80061; 80074; 81001; 81003; 82306; 82330; 82607; 82728; 82746; 82805; 83010; 83036; 83540; 83550; 83605; 83615; 83735; 84132; 84145; 84443; 84484; 85025; 85027; 85379; 85384; 85520; 85610; 85730; 86850; 86891; 86900; 86901; 86920; 87040; 87070; 87086; 87205; 88305; 88311; 93005; 93306; 93312; 93320; 93325; 93455; 93880; 93922; 93970; 94002; 94003; 94150; 94640; 94660; 96361; 96365; 96375; 96376; 99291

== ENCOUNTER 2019-10-05 16:15 | Emergency (ER) | payer MEDICARE ==
[2019-10-05] MEDS ORDERED: SODIUM CHLORIDE 0.9% 500 ML 500 ML IV STA (16:42)
[2019-10-05] MEDS ORDERED: MORPHINE SULFATE 4 MG/ML SYRINGE IV STA (16:42)
--- NOTE | 2019-10-05 16:47 | ED ---
General Adult HPI - General Source: patient, RN notes reviewed, old records reviewed Mode of arrival: wheelchair Limitations: no limitations <Lukas Toscano - Last Filed: 10/05/19 19:23> <Melanie Akers - Last Filed: 10/06/19 14:43> - General Chief complaint: Back Pain/Injury Stated complaint: Left Side Pain post SX Time Seen by Provider: 10/05/19 16:28 - History of Present Illness Initial comments: 69-year-old male patient with past history significant for recent 2 vessel bypass and aortic valve replacement on 09/12. History of ITP status post splenectomy. Type 2 diabetes. Previous tobacco dependence. Presents to ED for chief complaint of left flank pain, paralumbar back pain. Patient reports that he was recently discharged from our rehabilitation today. Upon sitting down he began to experience left paralumbar, left flank pain. Reports that this is sharp in nature. Denies any anterior chest pain. Patient reports that when the pain is bad and it does make him somewhat short of breath however denies any shortness of breath at baseline without pain. Denies any other complaints at this time. Systemic: Pt denies fatigue, fever/chills, rash. Pt denies weakness, night sweats, weight loss. Neuro: Pt denies headache, visual disturbances, syncope or pre-syncope. HEENT: Pt denies ocular discharge or irritation, otalgia, rhinorrhea, pharyngitis or notable lymphadenopathy. Cardiopulmonary: Pt denies chest pain, heart palpitations, dyspnea on exertion. Abdominal/GI: Pt denies abdominal pain, n/v/d. : Pt denies dysuria, burning w/ urination, frequency/urgency. Denies new onset urinary or bowel incontinence. MSK: Pt denies loss of strength or function in extremities. Neuro: Pt denies new onset weakness, paresthesias. (Lukas Toscano) - Related Data Home Medications Medication Instructions Recorded Confirmed metFORMIN HCL 1,000 mg PO BID 10/11/14 09/06/19 Cholecalciferol [Vitamin D3 (25 1,000 unit PO DAILY 09/06/19 09/06/19 Mcg = 1000 Iu)] Vitamin B Complex 1 cap PO DAILY 09/06/19 09/06/19 Previous Rx's Medication Instructions Recorded Acetaminophen Tab [Tylenol] 1,000 mg PO Q6HR PRN tab 09/22/19 Amiodarone [Cordarone] 200 mg PO BID tab 09/22/19 Ascorbic Acid [Vitamin C] 500 mg PO BID-W/MEALS tab 09/22/19 Aspirin 325 mg PO DAILY tab 09/22/19 Atorvastatin [Lipitor] 40 mg PO HS tab 09/22/19 Budesonide-Formot 160-4.5 Mcg 2 puff INHALATION RT-BID puff 09/22/19 [Symbicort 160-4.5 Mcg Inhaler] Clopidogrel [Plavix] 75 mg PO DAILY tab 09/22/19 Diltiazem Cd [Cardizem Cd] 120 mg PO DAILY #30 cap.er.24h 09/22/19 Ferrous Sulfate [Iron (65 MG 325 mg PO BID-W/MEALS tab 09/22/19 Elemental)] Folic Acid-Vit B Complex-Vit C 1 each PO DAILY cap 09/22/19 [Nephrocaps] Furosemide [Lasix] 40 mg PO DAILY #30 tablet 09/22/19 INSULIN ASPART (NovoLOG) [NovoLOG 0 unit SQ ACHS vial 09/22/19 (formulary)] Losartan [Cozaar] 25 mg PO DAILY@1200 tab 09/22/19 Magnesium Hydroxide [Milk of 2,400 mg PO DAILY PRN ml 09/22/19 Magnesia Concentrate] Metolazone [Zaroxolyn] 5 mg PO DAILY #5 tablet 09/22/19 Metoprolol Tartrate [Lopressor] 25 mg PO TID tab 09/22/19 Pantoprazole [Protonix] 40 mg PO AC-BRKFST tablet. 09/22/19 Sennosides-Docusate Sodium 2 each PO HS tab 09/22/19 [Senokot-S] Tamsulosin [Flomax] 0.4 mg PO DAILY #10 cap 10/05/19 Allergies Allergy/AdvReac Type Severity Reaction Status Date / Time albuterol AdvReac Unknown Verified 10/05/19 16:23 prednisone AdvReac Anaphylaxis Verified 10/05/19 16:23 Review of Systems ROS Other: All systems not noted in ROS Statement are negative. <Lukas Toscano - Last Filed: 10/05/19 19:23> ROS Other: All systems not noted in ROS Statement are negative. <Melanie Akers - Last Filed: 10/06/19 14:43> ROS Statement: Those systems with pertinent positive or pertinent negative responses have been documented in the HPI. 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 History of Any Multi-Drug Resistant Organisms: None Reported Past Surgical History: Appendectomy, Coronary Bypass/CABG Additional Past Surgical History / Comment(s): spleenectomy, sinus surgery, jaw surgery Past Anesthesia/Blood Transfusion Reactions: No Reported Reaction Past Psychological History: No Psychological Hx Reported Smoking Status: Former smoker Past Alcohol Use History: None Reported Past Drug Use History: None Reported - Past Family History Mother Family Medical History: Congestive Heart Failure (CHF) Father Family Medical History: Myocardial Infarction (NH) Sister(s) Family Medical History: Coronary Artery Disease (CAD) Additional Family Medical History / Comment(s): Status post coronary artery bypass grafting surgery. <Lukas Toscano - Last Filed: 10/05/19 19:23> General Exam Limitations: no limitations <Lukas Toscano - Last Filed: 10/05/19 19:23> - General Exam Comments Initial Comments: Constitutional: NAD, AOX3, Pt has pleasant affect. HEENT: NC/AT, trachea midline, neck supple, no lymphadenopathy. Posterior pharynx non erythematous, without exudates. External ears appear normal, without discharge. Mucous membranes moist. Eyes PERRLA, EOM intact. There is no scleral icterus. No pallor noted. Cardiopulmonary: RRR, no murmurs, rubs or gallops, no JVD noted. Lungs CTAB in anterior and posterior ferrera. No peripheral edema. Abdominal exam: Abdomen soft and non-distended. Abdomen non-tender to palpation in all 4 quadrants. left flank mildly tender to palpation. Skin changes. No anterior abdominal tenderness.Bowel sounds active in LLQ. No hepatosplenomegaly. No ecchymosis Neuro: CN II-XII grossly intact. No nuchal rigidity. No raccon eyes, no barros sign, no hemotympanum. No cervical spinal tenderness. MSK: No posterior calf tenderness bilaterally, homans sign negative bilaterally. Posterior tibialis and radial pulse +2 bilaterally. Sensation intact in upper and lower extremities. Full active ROM in upper and lower extremities, 5/5 stregnth. (Lukas Toscano) Course Vital Signs 10/05/19 10/05/19 10/05/19 16:20 18:27 19:30 Temperature 98.3 F 97.7 F Pulse Rate 80 94 96 Respiratory 18 16 16 Rate Blood Pressure 120/63 125/78 116/83 O2 Sat by Pulse 97 99 98 Oximetry Medical Decision Making - Lab Data Result diagrams: 10/05/19 16:40 10/05/19 16:40 - EKG Data -: EKG Interpreted by Me (and Dr. Akers ) <Lukas Toscano - Last Filed: 10/05/19 19:23> - Lab Data Result diagrams: 10/05/19 16:40 10/05/19 16:40 <Melanie Akers - Last Filed: 10/06/19 14:43> - Medical Decision Making 69-year-old male patient with past history significant for recent 2 vessel bypass and aortic valve replacement on 09/12. History of ITP status post splenectomy. Type 2 diabetes. Previous tobacco dependence. Presents to ED for chief complaint of left flank pain, paralumbar back pain. Patient reports that he was recently discharged from our rehabilitation today. Upon sitting down he began to experience left paralumbar, left flank pain. Reports that this is sharp in nature. Denies any anterior chest pain. Patient reports that when the pain is bad and it does make him somewhat short of breath however denies any shortness of breath at baseline without pain. Denies any other complaints at this time. Patient vital signs stable, afebrile. Physical exam displayed: Flank mild tenderness to palpation. Liver investigations revealed leukocytosis of 14.1. Left shift. Hemoglobin of 11.9 trending up. Troponin negative. UA displayed hematuria. 10 white blood cells. No leukocyte esterase or nitrites. Chest x-ray displayed cardiomegaly. No obvious heart failure. Clearing of left heart failure compared to old exam. CT abdomen and pelvis without contrast displayed small obstructing calculus 4 mm at the left ureterovesicular junction with left-sided hydronephrosis and hydroureter. Mild sigmoid diverticulosis. Small left pleural effusion and pericardial effusion. Mild basilar pulmonary infiltrates atelectasis. Patient denies any cough or congestion. EKG displayed new T-wave inversions. Case was discussed with nurse practitioner. Patient's cardiothoracic surgeon Brooke. All findings were explained in depth including EKG changes. She is comfortable with discharge and will call patient tomorrow. Patient will otherwise be discharged with Flomax, analgesia. We'll follow up with urology tomorrow. Return to ER if condition worsens. Case discussed in depth with Dr. Akers. (Lukas Toscano) I was available for consultation in the emergency department. The history and physical exam were done by the midlevel provider. I was consulted for this patients care. I reviewed the case with the midlevel provider and based on their presentation of the patient, I agree with the assessment, medical decision making and plan of care as documented. Chart was dictated using [employer] dictation software. Attempts were made to correct any dictation errors however some typographical errors may persist. (Melanie Akers) - Lab Data Lab Results 10/05/19 10/05/19 10/05/19 Range/Units 16:40 16:40 16:40 WBC 14.1 H (3.8-10.6) k/uL RBC 4.03 L (4.30-5.90) m/uL Hgb 11.9 L (13.0-17.5) gm/dL Hct 37.0 L (39.0-53.0) % MCV 91.9 (80.0-100.0) fL MCH 29.4 (25.0-35.0) pg MCHC 32.1 (31.0-37.0) g/dL RDW 14.7 (11.5-15.5) % Plt Count 518 H (150-450) k/uL Neutrophils % 76 % Lymphocytes % 10 % Monocytes % 5 % Eosinophils % 7 % Basophils % 1 % Neutrophils # 10.6 H (1.3-7.7) k/uL Lymphocytes # 1.5 (1.0-4.8) k/uL Monocytes # 0.7 (0-1.0) k/uL Eosinophils # 0.9 H (0-0.7) k/uL Basophils # 0.1 (0-0.2) k/uL PT (9.0-12.0) sec INR (<1.2) APTT (22.0-30.0) sec Sodium 135 L (137-145) mmol/L Potassium 3.9 (3.5-5.1) mmol/L Chloride 91 L (98-107) mmol/L Carbon Dioxide 30 (22-30) mmol/L Anion Gap 14 mmol/L BUN 31 H (9-20) mg/dL Creatinine 1.02 (0.66-1.25) mg/dL Est GFR (CKD-EPI)AfAm 87 (>60 ml/min/1.73 sqM) Est GFR (CKD-EPI)NonAf 75 (>60 ml/min/1.73 sqM) Glucose 132 H (74-99) mg/dL Calcium 9.9 (8.4-10.2) mg/dL Magnesium 1.7 (1.6-2.3) mg/dL Total Bilirubin 0.7 (0.2-1.3) mg/dL AST 45 (17-59) U/L ALT 32 (4-49) U/L Alkaline Phosphatase 101 (38-126) U/L Troponin I (0.000-0.034) ng/mL NT-Pro-B Natriuret Pep 721 pg/mL Total Protein 7.9 (6.3-8.2) g/dL Albumin 4.2 (3.5-5.0) g/dL Urine Color Urine Appearance (Clear) Urine pH (5.0-8.0) Ur Specific [place] (1.001-1.035) Urine Protein (Negative) Urine Glucose (UA) (Negative) Urine Ketones (Negative) Urine Blood (Negative) Urine Nitrite (Negative) Urine Bilirubin (Negative) Urine Urobilinogen (<2.0) mg/dL Ur Leukocyte Esterase (Negative) Urine RBC (0-5) /hpf Urine WBC (0-5) /hpf Hyaline Casts (0-2) /lpf Urine Mucus (None) /hpf 10/05/19 10/05/19 10/05/19 Range/Units 16:40 16:40 18:30 WBC (3.8-10.6) k/uL RBC (4.30-5.90) m/uL Hgb (13.0-17.5) gm/dL Hct (39.0-53.0) % MCV (80.0-100.0) fL MCH (25.0-35.0) pg MCHC (31.0-37.0) g/dL RDW (11.5-15.5) % Plt Count (150-450) k/uL Neutrophils % % Lymphocytes % % Monocytes % % Eosinophils % % Basophils % % Neutrophils # (1.3-7.7) k/uL Lymphocytes # (1.0-4.8) k/uL Monocytes # (0-1.0) k/uL Eosinophils # (0-0.7) k/uL Basophils # (0-0.2) k/uL PT 10.0 (9.0-12.0) sec INR 0.9 (<1.2) APTT 23.3 (22.0-30.0) sec Sodium (137-145) mmol/L Potassium (3.5-5.1) mmol/L Chloride (98-107) mmol/L Carbon Dioxide (22-30) mmol/L Anion Gap mmol/L BUN (9-20) mg/dL Creatinine (0.66-1.25) mg/dL Est GFR (CKD-EPI)AfAm (>60 ml/min/1.73 sqM) Est GFR (CKD-EPI)NonAf (>60 ml/min/1.73 sqM) Glucose (74-99) mg/dL Calcium (8.4-10.2) mg/dL Magnesium (1.6-2.3) mg/dL Total Bilirubin (0.2-1.3) mg/dL AST (17-59) U/L ALT (4-49) U/L Alkaline Phosphatase (38-126) U/L Troponin I <0.012 (0.000-0.034) ng/mL NT-Pro-B Natriuret Pep pg/mL Total Protein (6.3-8.2) g/dL Albumin (3.5-5.0) g/dL Urine Color Yellow Urine Appearance Clear (Clear) Urine pH 6.0 (5.0-8.0) Ur Specific [place] 1.019 (1.001-1.035) Urine Protein Trace H (Negative) Urine Glucose (UA) Negative (Negative) Urine Ketones Negative (Negative) Urine Blood Large H (Negative) Urine Nitrite Negative (Negative) Urine Bilirubin Negative (Negative) Urine Urobilinogen <2.0 (<2.0) mg/dL Ur Leukocyte Esterase Negative (Negative) Urine RBC >182 H (0-5) /hpf Urine WBC 10 H (0-5) /hpf Hyaline Casts 15 H (0-2) /lpf Urine Mucus Rare H (None) /hpf - EKG Data EKG Comments: ventricular rate 82, MT interval 164, QRS 112, QT/QTc 48/476. Sinus tachycardia. T-wave inversions noted in lead 1 and lead to aVL and aVF (Lukas Toscano) Disposition Is patient prescribed a controlled substance at d/c from ED?: No <Lukas Toscano - Last Filed: 10/05/19 19:23> <Melanie Akers - Last Filed: 10/06/19 14:43> Clinical Impression: Ureteral calculi Disposition: HOME SELF-CARE Condition: Stable Instructions (If sedation given, give patient instructions): Kidney Stones (ED) Additional Instructions: follow-up with primary care provider and urologist tomorrow. Return to ER if condition worsens in any way. Follow-up with nurse practitioner Geetha from pick up office tomorrow. Prescriptions: Tamsulosin [Flomax] 0.4 mg PO DAILY #10 cap Referrals: Timo Mayorga III, MD [Primary Care Provider] - 1-2 days Barry Vela MD [STAFF PHYSICIAN] - 1-2 days Michelet Hayward MD [STAFF PHYSICIAN] - 1-2 days
[2019-10-05] MEDS ORDERED: ONDANSETRON 4 MG/2 ML VIAL IVP STA (16:52)
[2019-10-05 16:57] LABS: Basophils # (A) 0.1 k/uL (0-0.2); Basophils % (A) 1 %; Eosinophils # (A) 0.9 k/uL (0-0.7); Eosinophils % (A) 7 %; HGB 11.9 gm/dL (13.0-17.5); Lymphocytes # (A) 1.5 k/uL (1.0-4.8); Lymphocytes % (A) 10 %; MCH 29.4 pg (25.0-35.0); MCHC 32.1 g/dL (31.0-37.0); MCV 91.9 fL (80.0-100.0); Mean Platelet Volume 7.7; Monocytes # (A) 0.7 k/uL (0-1.0); Monocytes % (A) 5 %; Neutrophils # (A) 10.6 k/uL (1.3-7.7); Neutrophils % (A) 76 %; Platelet Count 518 k/uL (150-450); RBC 4.03 m/uL (4.30-5.90); RDW 14.7 % (11.5-15.5); WBC 14.1 k/uL (3.8-10.6)
[2019-10-05 17:06] LABS: INR 0.9 (<1.2); Partial Thromboplastin Time 23.3 sec (22.0-30.0)
[2019-10-05 17:07] LABS: Albumin 4.2 g/dL (3.5-5.0); Calcium 9.9 mg/dL (8.4-10.2); Magnesium 1.7 mg/dL (1.6-2.3); Total Bilirubin 0.7 mg/dL (0.2-1.3); Total Protein 7.9 g/dL (6.3-8.2)
--- NOTE | 2019-10-05 17:12 | XR ---
EXAMINATION TYPE: XR chest 2V DATE OF EXAM: 10/05/2019 COMPARISON: September 22, 2019 HISTORY: Postop cardiac surgery TECHNIQUE: 2 views FINDINGS: Heart is enlarged. There is minimal pulmonary congestion. There are sternal wires. There is no definite pleural fluid. There is cardiac valve surgery. IMPRESSION: Mild cardiomegaly. No obvious heart failure. There is clearing of the heart failure sharla red to old exam.
[2019-10-05 17:17] LABS: Potassium 3.9 mmol/L (3.5-5.1)
--- NOTE | 2019-10-05 18:15 | CT ---
EXAMINATION TYPE: CT abdomen pelvis wo con DATE OF EXAM: 10/05/2019 COMPARISON: None HISTORY: Left flank pain. CT DLP: 986.8 mGycm Automated exposure control for dose reduction was used. There is some pleural thickening and atelectasis at both lung bases. There is small left pleural effu karan. There is small pericardial effusion. Liver shows no focal defect. Gallbladder appears normal. Spleen is absent. There is no sign of pancre atic mass. There is no adrenal mass. Kidneys have normal size and contour. There is 2 cm cortical cyst posterior right kidney. There is mild left-sided hydronephrosis. There is mild ectasia of the left ureter. The re is 4 mm calculus at the left ureterovesical junction. Right kidney shows no sign of obstruction. T here is no retroperitoneal adenopathy. Bladder distends smoothly. There is no inguinal hernia. There is no free fluid in the pelvis. There are scattered sigmoid diverticula. Appendix is not defini tely seen. There is no sign of thickened appendix. There is no mesenteric edema. There is no ascites or free air. There is no sign of a bowel obstruction. There is no evidence of a calculus within the k idneys. Lumbar vertebra have normal alignment. There is mild disc space narrowing. Posterior elements are int act. There is no compression fracture. Bony pelvis is intact. IMPRESSION: Small obstructing calculus at the left ureterovesical junction with left-sided hydronephrosis and hyd roureter. Mild sigmoid diverticulosis. Left pleural effusion and pericardial effusion. Mild basilar pulmonary infiltrates and atelectasis.
[2019-10-05 18:28] VITALS: RESP 16
[2019-10-05 18:51] LABS: Appearance,Urine Clear (Clear); Bilirubin,Urine Negative (Negative); Blood,Urine Large (Negative); Color,Urine Yellow; Glucose,Urine (UA) Negative (Negative); Hyaline Casts,Urine 15 /lpf (0-2); Ketones,Urine Negative (Negative); Leukocyte Esterase,Urine Negative (Negative); Mucus,Urine Rare /hpf; Nitrite,Urine Negative (Negative); Protein,Urine Trace (Negative); RBC,Urine >182 /hpf (0-5); Specific Gravity,Urine 1.019 (1.001-1.035); Urobilinogen,Urine <2.0 mg/dL (<2.0); WBC,Urine 10 /hpf (0-5)
[2019-10-05] MEDS ORDERED: ACET/COD 300 MG/30 MG STARTER PACK 6 TAB BTL PO STA (19:27)
[2019-10-05] MEDS ORDERED: TAMSULOSIN 0.4 MG CAP.ER.24H PO STA (19:27)
[2019-10-05 19:30] VITALS: TEMP 97.7
[2019-10-05 19:31] VITALS: BP 116/83; PULSE 96
== END 2019-10-05 19:40 | disposition home or self-care (01) ==
LOC: EC 16:15
DX: N13.2 Hydronephrosis with renal and ureteral calculous obstruction (principal); I51.7 Cardiomegaly; K57.30 Diverticulosis of large intestine without perforation or abscess without bleeding; J90 Pleural effusion, not elsewhere classified; I31.3 Pericardial effusion (noninflammatory); J98.11 Atelectasis; D72.829 Elevated white blood cell count, unspecified; D69.3 Immune thrombocytopenic purpura; I25.2 Old myocardial infarction; G47.30 Sleep apnea, unspecified; E11.9 Type 2 diabetes mellitus without complications; I25.10 Atherosclerotic heart disease of native coronary artery without angina pectoris; Z79.84 Long term (current) use of oral hypoglycemic drugs; Z79.899 Other long term (current) drug therapy; Z88.8 Allergy status to other drugs, medicaments and biological substances; Z95.2 Presence of prosthetic heart valve; Z90.81 Acquired absence of spleen; Z95.1 Presence of aortocoronary bypass graft; Z99.89 Dependence on other enabling machines and devices; Z87.891 Personal history of nicotine dependence; Z82.49 Family history of ischemic heart disease and other diseases of the circulatory system
CPT/HCPCS: 36415; 93005; 83880; 80053; 83735; 84484; 85025; 85610; 85730; 81001; 71046; 74176; 96374; 96375; 96361 ×2; 99285; J2270; J2405

== ENCOUNTER 2019-10-09 12:31 | Observation (INO) | payer MEDICARE ==
--- NOTE | 2019-10-09 13:19 | XR ---
EXAMINATION TYPE: XR chest 2V DATE OF EXAM: 10/09/2019 COMPARISON: 10/05/2019 HISTORY: Dysrhythmia TECHNIQUE: Frontal and lateral views of the chest are obtained. FINDINGS: There is no focal air space opacity, pleural effusion, or pneumothorax seen. The cardiac silhouette size is enlarged with post surgical change and prosthetic valvular device. The osseous s tructures are intact. Mild multilevel degenerative changes seen of the spine. IMPRESSION: No acute cardiopulmonary process. Redemonstration of cardiomegaly.
[2019-10-09 13:20] LABS: INR 0.8 (<1.2); Partial Thromboplastin Time 23.4 sec (22.0-30.0); Prothrombin Time 9.4 sec (9.0-12.0)
[2019-10-09 13:21] LABS: ALT 24 U/L (4-49); AST 32 U/L (17-59); African American GFR (CKD) >90 (>60 ml/min/1.73 sqM); Albumin 4.2 g/dL (3.5-5.0); Alkaline Phosphatase 107 U/L (38-126); Anion Gap 13 mmol/L; Blood Urea Nitrogen 17 mg/dL (9-20); Calcium 10.4 mg/dL (8.4-10.2); Carbon Dioxide 32 mmol/L (22-30); Chloride 93 mmol/L (98-107); Creatine Kinase 42 U/L (55-170); Glucose 130 mg/dL (74-99); Magnesium 1.6 mg/dL (1.6-2.3); Non-African American GFR(CKD) 90 (>60 ml/min/1.73 sqM); Potassium 3.4 mmol/L (3.5-5.1); Sodium 138 mmol/L (137-145); Total Bilirubin 0.4 mg/dL (0.2-1.3); Total Protein 7.8 g/dL (6.3-8.2)
[2019-10-09 13:24] LABS: Basophils # (A) 0.2 k/uL (0-0.2); Basophils % (A) 2 %; Eosinophils # (A) 1.4 k/uL (0-0.7); Eosinophils % (A) 12 %; HCT 38.7 % (39.0-53.0); HGB 12.5 gm/dL (13.0-17.5); Hypochromasia Moderate; Lymphocytes # (A) 2.2 k/uL (1.0-4.8); Lymphocytes % (A) 18 %; MCH 29.9 pg (25.0-35.0); MCHC 32.2 g/dL (31.0-37.0); MCV 92.7 fL (80.0-100.0); Mean Platelet Volume 8.2; Monocytes # (A) 0.7 k/uL (0-1.0); Monocytes % (A) 6 %; Neutrophils # (A) 7.1 k/uL (1.3-7.7); Neutrophils % (A) 60 %; Platelet Count 516 k/uL (150-450); Poikilocytosis Slight; RBC 4.18 m/uL (4.30-5.90); RDW 14.5 % (11.5-15.5); WBC 11.7 k/uL (3.8-10.6)
[2019-10-09] MEDS ORDERED: ACETAMINOPHEN TAB 500 MG TAB PO PRN (13:28)
[2019-10-09] MEDS ORDERED: MAGNESIUM HYDROXIDE 2,400 MG/10 ML CUP PO PRN (13:28)
[2019-10-09] MEDS ORDERED: Magnesium Replacement Protocol 1 EACH MISC MISCELLANE PRN (13:38)
[2019-10-09] MEDS ORDERED: Potassium Replacement Protocol 1 EACH MISC MISCELLANE PRN (13:39)
[2019-10-09] MEDS: HEPARIN SODIUM,PORCINE 5,000 UNIT/ML 1 ML VIAL SQ SCH ×2 (13:56→20:58)
[2019-10-09] MEDS: POTASSIUM CHLORIDE ER 20 MEQ TAB.ER PO SCH ×2 (13:57→15:03)
[2019-10-09] MEDS: MAGNESIUM SULFATE-D5W PMX 1 GM in DEXTROSE/WATER 1 100ML.BAG IVPB SCH ×2 (13:57→15:04)
[2019-10-09] MEDS: METOPROLOL TARTRATE 25 MG TAB PO SCH ×2 (14:01→20:58)
--- NOTE | 2019-10-09 14:15 | ED ---
Arrhythmia/Palpitations HPI - General Chief Complaint: Arrhythmia/Palpitations Stated Complaint: High BP Time Seen by Provider: 10/09/19 12:41 Source: patient, family, RN notes reviewed, old records reviewed Mode of arrival: wheelchair Limitations: no limitations - History of Present Illness Initial Comments: This is a 61-year-old male who presents with complaints of palpitations. He did recently have cardiac surgery and did briefly have A. fib after surgery that did correct after medications. He apparently was not given his medications however after discharge. Patient presents today with palpitations no chest pain no fevers chills sweats he does have some shortness of breath reported. No other modifying factors MD Complaint: rapid heart beat, "heart racing" - Related Data Home Medications Medication Instructions Recorded Confirmed metFORMIN HCL 1,000 mg PO BID 10/11/14 09/06/19 Cholecalciferol [Vitamin D3 (25 1,000 unit PO DAILY 09/06/19 09/06/19 Mcg = 1000 Iu)] Vitamin B Complex 1 cap PO DAILY 09/06/19 09/06/19 Previous Rx's Medication Instructions Recorded Acetaminophen Tab [Tylenol] 1,000 mg PO Q6HR PRN tab 09/22/19 Amiodarone [Cordarone] 200 mg PO BID tab 09/22/19 Ascorbic Acid [Vitamin C] 500 mg PO BID-W/MEALS tab 09/22/19 Aspirin 325 mg PO DAILY tab 09/22/19 Atorvastatin [Lipitor] 40 mg PO HS tab 09/22/19 Budesonide-Formot 160-4.5 Mcg 2 puff INHALATION RT-BID puff 09/22/19 [Symbicort 160-4.5 Mcg Inhaler] Clopidogrel [Plavix] 75 mg PO DAILY tab 09/22/19 Diltiazem Cd [Cardizem Cd] 120 mg PO DAILY #30 cap.er.24h 09/22/19 Ferrous Sulfate [Iron (65 MG 325 mg PO BID-W/MEALS tab 09/22/19 Elemental)] Folic Acid-Vit B Complex-Vit C 1 each PO DAILY cap 09/22/19 [Nephrocaps] Furosemide [Lasix] 40 mg PO DAILY #30 tablet 09/22/19 INSULIN ASPART (NovoLOG) [NovoLOG 0 unit SQ ACHS vial 09/22/19 (formulary)] Losartan [Cozaar] 25 mg PO DAILY@1200 tab 09/22/19 Magnesium Hydroxide [Milk of 2,400 mg PO DAILY PRN ml 09/22/19 Magnesia Concentrate] Metolazone [Zaroxolyn] 5 mg PO DAILY #5 tablet 09/22/19 Metoprolol Tartrate [Lopressor] 25 mg PO TID tab 09/22/19 Pantoprazole [Protonix] 40 mg PO AC-BRKFST tablet. 09/22/19 Sennosides-Docusate Sodium 2 each PO HS tab 09/22/19 [Senokot-S] Tamsulosin [Flomax] 0.4 mg PO DAILY #10 cap 10/05/19 Allergies Allergy/AdvReac Type Severity Reaction Status Date / Time albuterol AdvReac Unknown Verified 10/09/19 12:37 prednisone AdvReac Anaphylaxis Verified 10/09/19 12:37 Review of Systems ROS Statement: Those systems with pertinent positive or pertinent negative responses have been documented in the HPI. ROS Other: All systems not noted in ROS Statement are negative. 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 History of Any Multi-Drug Resistant Organisms: None Reported Past Surgical History: Appendectomy, Coronary Bypass/CABG Additional Past Surgical History / Comment(s): spleenectomy, sinus surgery, jaw surgery Past Anesthesia/Blood Transfusion Reactions: No Reported Reaction Past Psychological History: No Psychological Hx Reported Smoking Status: Former smoker Past Alcohol Use History: None Reported Past Drug Use History: None Reported - Past Family History Mother Family Medical History: Congestive Heart Failure (CHF) Father Family Medical History: Myocardial Infarction ([place]) Sister(s) Family Medical History: Coronary Artery Disease (CAD) Additional Family Medical History / Comment(s): Status post coronary artery bypass grafting surgery. General Exam - General Exam Comments Initial Comments: this is a well-developed well-nourished awake alert oriented times 3 male Limitations: no limitations General appearance: alert, in no apparent distress Head exam: Present: atraumatic, normocephalic, normal inspection Eye exam: Present: normal appearance, PERRL, EOMI. Absent: scleral icterus, conjunctival injection, periorbital swelling ENT exam: Present: normal exam, mucous membranes moist Neck exam: Present: normal inspection. Absent: tenderness, meningismus, lymphadenopathy Respiratory exam: Present: normal lung sounds bilaterally, other (patient does demonstrate a well-healing chest surgical scar. No evidence of dehiscence or infectious process). Absent: respiratory distress, wheezes, rales, rhonchi, stridor Cardiovascular Exam: Present: tachycardia, irregular rhythm. Absent: systolic murmur, diastolic murmur, rubs, gallop, clicks GI/Abdominal exam: Present: soft, normal bowel sounds. Absent: distended, tenderness, guarding, rebound, rigid Extremities exam: Present: normal inspection, full ROM, normal capillary refill. Absent: tenderness, pedal edema, joint swelling, calf tenderness Back exam: Present: normal inspection Neurological exam: Present: alert, oriented X3, CN II-XII intact Psychiatric exam: Present: normal affect, normal mood Skin exam: Present: warm, dry, intact, normal color. Absent: rash Course Vital Signs 10/09/19 10/09/19 12:34 12:37 Temperature 98.0 F Pulse Rate 104 H 116 H Respiratory 20 20 Rate Blood Pressure 128/70 112/77 O2 Sat by Pulse 96 95 Oximetry - Reevaluation(s) Reevaluation #1: 10/09/19 14:13 patient was evaluated in the emergency department by cardiothoracic surgery. Darshana did come to evaluate the patient. I did discuss the case with him as well as with Dr. Bland patient will be admitted for evaluation of A. fib. Dr. Vela on consult Reevaluation #2: 10/09/19 14:14 orders per cardiothoracic surgery EKG Findings - EKG Results: EKG: interpreted by ERMD (atrial flutter with variable AV block rate was 114 QRS 108 QT since QTC 346/[address]-T wave configuration) Medical Decision Making - Medical Decision Making the patient will be admitted he does demonstrate atrial fibrillation he also demonstrates low potassium and magnesium levels. These will be corrected - Lab Data Result diagrams: 10/09/19 13:00 10/09/19 13:00 Lab Results 10/09/19 10/09/19 10/09/19 Range/Units 13:00 13:00 13:00 WBC 11.7 H (3.8-10.6) k/uL RBC 4.18 L (4.30-5.90) m/uL Hgb 12.5 L (13.0-17.5) gm/dL Hct 38.7 L (39.0-53.0) % MCV 92.7 (80.0-100.0) fL MCH 29.9 (25.0-35.0) pg MCHC 32.2 (31.0-37.0) g/dL RDW 14.5 (11.5-15.5) % Plt Count 516 H (150-450) k/uL Neutrophils % 60 % Lymphocytes % 18 % Monocytes % 6 % Eosinophils % 12 % Basophils % 2 % Neutrophils # 7.1 (1.3-7.7) k/uL Lymphocytes # 2.2 (1.0-4.8) k/uL Monocytes # 0.7 (0-1.0) k/uL Eosinophils # 1.4 H (0-0.7) k/uL Basophils # 0.2 (0-0.2) k/uL Hypochromasia Moderate Poikilocytosis Slight PT 9.4 (9.0-12.0) sec INR 0.8 (<1.2) APTT 23.4 (22.0-30.0) sec Sodium 138 (137-145) mmol/L Potassium 3.4 L (3.5-5.1) mmol/L Chloride 93 L (98-107) mmol/L Carbon Dioxide 32 H (22-30) mmol/L Anion Gap 13 mmol/L BUN 17 (9-20) mg/dL Creatinine 0.85 (0.66-1.25) mg/dL Est GFR (CKD-EPI)AfAm >90 (>60 ml/min/1.73 sqM) Est GFR (CKD-EPI)NonAf 90 (>60 ml/min/1.73 sqM) Glucose 130 H (74-99) mg/dL Calcium 10.4 H (8.4-10.2) mg/dL Magnesium 1.6 (1.6-2.3) mg/dL Total Bilirubin 0.4 (0.2-1.3) mg/dL AST 32 (17-59) U/L ALT 24 (4-49) U/L Alkaline Phosphatase 107 (38-126) U/L Creatine Kinase 42 L (55-170) U/L Troponin I (0.000-0.034) ng/mL Total Protein 7.8 (6.3-8.2) g/dL Albumin 4.2 (3.5-5.0) g/dL TSH 2.130 (0.465-4.680) mIU/L 10/09/19 Range/Units 13:00 WBC (3.8-10.6) k/uL RBC (4.30-5.90) m/uL Hgb (13.0-17.5) gm/dL Hct (39.0-53.0) % MCV (80.0-100.0) fL MCH (25.0-35.0) pg MCHC (31.0-37.0) g/dL RDW (11.5-15.5) % Plt Count (150-450) k/uL Neutrophils % % Lymphocytes % % Monocytes % % Eosinophils % % Basophils % % Neutrophils # (1.3-7.7) k/uL Lymphocytes # (1.0-4.8) k/uL Monocytes # (0-1.0) k/uL Eosinophils # (0-0.7) k/uL Basophils # (0-0.2) k/uL Hypochromasia Poikilocytosis PT (9.0-12.0) sec INR (<1.2) APTT (22.0-30.0) sec Sodium (137-145) mmol/L Potassium (3.5-5.1) mmol/L Chloride (98-107) mmol/L Carbon Dioxide (22-30) mmol/L Anion Gap mmol/L BUN (9-20) mg/dL Creatinine (0.66-1.25) mg/dL Est GFR (CKD-EPI)AfAm (>60 ml/min/1.73 sqM) Est GFR (CKD-EPI)NonAf (>60 ml/min/1.73 sqM) Glucose (74-99) mg/dL Calcium (8.4-10.2) mg/dL Magnesium (1.6-2.3) mg/dL Total Bilirubin (0.2-1.3) mg/dL AST (17-59) U/L ALT (4-49) U/L Alkaline Phosphatase (38-126) U/L Creatine Kinase (55-170) U/L Troponin I <0.012 (0.000-0.034) ng/mL Total Protein (6.3-8.2) g/dL Albumin (3.5-5.0) g/dL TSH (0.465-4.680) mIU/L - Radiology Data Radiology results: report reviewed (I did review the imaging and report no acute findings), image reviewed Disposition Clinical Impression: Atrial fibrillation, Status post cardiac surgery Disposition: ADMITTED IP TO THIS [facility] Condition: Stable Referrals: Timo Mayorga III, MD [Primary Care Provider] - 1-2 days
[2019-10-09] MEDS ORDERED: NALOXONE 0.4 MG/ML 1 ML VIAL IV PRN (14:17)
[2019-10-09] MEDS ORDERED: 0.9% NACL WITH KCL 20 MEQ/L 1,000 ML IV SCH (14:30)
--- NOTE | 2019-10-09 15:54 | P.GSCN ---
History of Present Illness Consult date: 10/09/19 Reason for Consult: Recent postoperative cardiac surgery, atrial flutter/atrial fibrillation. Requesting physician: Raheem Walters History of present illness: This is a 69-year-old gentleman who is followed by Dr. Enrrique Hunt on an outpatient basis. The patient has a past medical history significant for coronary artery disease, status post coronary artery bypass grafting in 1999 with his left internal mammary artery to left anterior descending coronary artery performed by Dr. Jake Alba, known aortic valve stenosis, history of platelet disorder status post splenectomy, diabetes mellitus type 2 with a recent hemoglobin A1c of 6.6%, hyperlipidemia, a remote history of smoking dependence quit smoking over 25 years ago, and a recent redo double vessel coronary artery bypass grafting surgery and aortic valve replacement using a 25 mm pericardial bioprosthesis Inspiris on 09/12/[address] Barry davila. subsequently, the patient was recovered and was discharged on 09/22/2019 to [facility] for further rehabilitation needs. The patient presented to the emergency department here at [facility] today after his home care nurse on visit found his heart rate was in the 130s and irregular. The patient also reports that he has been having some episodes of shortness of breath. He denies any recent fever, chills, nausea, vomiting, diarrhea or dizziness. The patient reports that once he was discharged from the extended care facility he was not given discharge medications. In the emergency department a chest x-ray was completed which showed no acute cardiopulmonary process and redemonstration of cardiomegaly. A 12-lead EKG was also completed which showed atrial flutter with variable AV block heart rate 114 BPM. Review of Systems A 14 point review of system was completed and was negative except as mentioned in the HPI. 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 History of Any Multi-Drug Resistant Organisms: None Reported Past Surgical History: Appendectomy, Cardiac Valve Replacement (August 2019 aortic valve replacement), Coronary Bypass/CABG (in 1999 and in August 2019), Heart Catheterization Additional Past Surgical History / Comment(s): spleenectomy, sinus surgery, jaw surgery Past Anesthesia/Blood Transfusion Reactions: No Reported Reaction Past Psychological History: No Psychological Hx Reported Smoking Status: Former smoker Past Alcohol Use History: None Reported Past Drug Use History: None Reported - Past Family History Mother Family Medical History: Congestive Heart Failure (CHF) Father Family Medical History: Myocardial Infarction ([place]) Sister(s) Family Medical History: Coronary Artery Disease (CAD) Additional Family Medical History / Comment(s): Status post coronary artery bypass grafting surgery. Medications and Allergies Home Medications Medication Instructions Recorded Confirmed Type metFORMIN HCL 1,000 mg PO BID 10/11/14 09/06/19 History Cholecalciferol [Vitamin D3 (25 1,000 unit PO DAILY 09/06/19 09/06/19 History Mcg = 1000 Iu)] Vitamin B Complex 1 cap PO DAILY 09/06/19 09/06/19 History Acetaminophen Tab [Tylenol] 1,000 mg PO Q6HR PRN tab 09/22/19 Rx Ascorbic Acid [Vitamin C] 500 mg PO BID-W/MEALS tab 09/22/19 Rx Atorvastatin [Lipitor] 40 mg PO HS tab 09/22/19 Rx Budesonide-Formot 160-4.5 Mcg 2 puff INHALATION RT-BID puff 09/22/19 Rx [Symbicort 160-4.5 Mcg Inhaler] Diltiazem Cd [Cardizem Cd] 120 mg PO DAILY #30 cap.er.24h 09/22/19 Rx Ferrous Sulfate [Iron (65 MG 325 mg PO BID-W/MEALS tab 09/22/19 Rx Elemental)] Furosemide [Lasix] 40 mg PO DAILY #30 tablet 09/22/19 Rx Losartan [Cozaar] 25 mg PO DAILY@1200 tab 09/22/19 Rx Metolazone [Zaroxolyn] 5 mg PO DAILY #5 tablet 09/22/19 Rx Metoprolol Tartrate [Lopressor] 25 mg PO TID tab 09/22/19 Rx Pantoprazole [Protonix] 40 mg PO AC-BRKFST tablet. 09/22/19 Rx Aspirin 325 mg PO W/SUPPER 10/09/19 10/09/19 History Clopidogrel [Plavix] 75 mg PO W/SUPPER 10/09/19 10/09/19 History Folic Acid-Vit B Complex-Vit C 1 mg PO W/SUPPER 10/09/19 10/09/19 History [Nephrocaps] Sennosides/Docusate Sodium 2 tab PO HS 10/09/19 10/09/19 History [Senna-S Laxative Tablet] Allergies Allergy/AdvReac Type Severity Reaction Status Date / Time albuterol AdvReac Unknown Verified 10/09/19 14:39 prednisone AdvReac Anaphylaxis Verified 10/09/19 14:39 Surgical - Exam Vital Signs Temp Pulse Resp BP Pulse Ox 98.0 F 104 H 20 128/70 96 10/09/19 12:34 10/09/19 12:34 10/09/19 12:34 10/09/19 12:34 10/09/19 12:34 - General well developed, well nourished, no distress, no pain, obese - Eyes PERRL, normal ocular movement - ENT normal pinna, normal nares, normal mucosa, no hearing loss, no congestion, poor prison - Neck neck is supple, no lymphadenopathy. no masses, no bruits, trachea midline, no venous distension - Respiratory lung sounds are essentially clear throughout, diminished to his bilateral bases. Respirations are symmetrical and nonlabored. Oxygen saturation are 95% on room air. - Cardiovascular irregular rhythm with a tachycardic rate. S1 and S2 present, negative for S3, gallop or murmur. Bedside telemetry showing atrial flutter heart rate 114. Paul rnum is stable. Heart hugger is in place and he is demonstrating appropriate use. +1 edema to his bilateral lower extremities. - Abdomen abdomen is soft, nontender nondistended. Active bowel sounds present in all 4 abdominal quadrants. No guarding or rigidity. No organomegaly appreciated. - Genitourinary deferred - Rectum deferred - Integumentary midline sternal incision is clean, dry and approximated. No drainage or redness is present. Left arm radial artery harvest sites clean, dry and approximated. No drainage or redness is present. no rash, no growths, no abnormal pigmentation - Neurologic normal coordination, normal sensation - Musculoskeletal normal gait, normal posture - Psychiatric oriented to time, oriented to person, oriented to place, speech is normal, memory intact Results - Labs 10/09/19 13:00 10/09/19 13:00 Abnormal Lab Results - Last 24 Hours (Table) 10/09/19 10/09/19 Range/Units 13:00 13:00 WBC 11.7 H (3.8-10.6) k/uL RBC 4.18 L (4.30-5.90) m/uL Hgb 12.5 L (13.0-17.5) gm/dL Hct 38.7 L (39.0-53.0) % Plt Count 516 H (150-450) k/uL Eosinophils # 1.4 H (0-0.7) k/uL Potassium 3.4 L (3.5-5.1) mmol/L Chloride 93 L (98-107) mmol/L Carbon Dioxide 32 H (22-30) mmol/L Glucose 130 H (74-99) mg/dL Calcium 10.4 H (8.4-10.2) mg/dL Creatine Kinase 42 L (55-170) U/L Diabetes panel 10/09/19 Range/Units 13:00 Sodium 138 (137-145) mmol/L Potassium 3.4 L (3.5-5.1) mmol/L Chloride 93 L (98-107) mmol/L Carbon Dioxide 32 H (22-30) mmol/L BUN 17 (9-20) mg/dL Creatinine 0.85 (0.66-1.25) mg/dL Glucose 130 H (74-99) mg/dL Calcium 10.4 H (8.4-10.2) mg/dL AST 32 (17-59) U/L ALT 24 (4-49) U/L Alkaline Phosphatase 107 (38-126) U/L Total Protein 7.8 (6.3-8.2) g/dL Albumin 4.2 (3.5-5.0) g/dL Thyroid panel 10/09/19 Range/Units 13:00 TSH 2.130 (0.465-4.680) mIU/L Calcium panel 10/09/19 Range/Units 13:00 Calcium 10.4 H (8.4-10.2) mg/dL Albumin 4.2 (3.5-5.0) g/dL Pituitary panel 10/09/19 Range/Units 13:00 Sodium 138 (137-145) mmol/L Potassium 3.4 L (3.5-5.1) mmol/L Chloride 93 L (98-107) mmol/L Carbon Dioxide 32 H (22-30) mmol/L BUN 17 (9-20) mg/dL Creatinine 0.85 (0.66-1.25) mg/dL Glucose 130 H (74-99) mg/dL Calcium 10.4 H (8.4-10.2) mg/dL TSH 2.130 (0.465-4.680) mIU/L Adrenal panel 10/09/19 Range/Units 13:00 Sodium 138 (137-145) mmol/L Potassium 3.4 L (3.5-5.1) mmol/L Chloride 93 L (98-107) mmol/L Carbon Dioxide 32 H (22-30) mmol/L BUN 17 (9-20) mg/dL Creatinine 0.85 (0.66-1.25) mg/dL Glucose 130 H (74-99) mg/dL Calcium 10.4 H (8.4-10.2) mg/dL Total Bilirubin 0.4 (0.2-1.3) mg/dL AST 32 (17-59) U/L ALT 24 (4-49) U/L Alkaline Phosphatase 107 (38-126) U/L Total Protein 7.8 (6.3-8.2) g/dL Albumin 4.2 (3.5-5.0) g/dL - Imaging Chest x-ray: report reviewed, image reviewed EKG: image reviewed Assessment and Plan Assessment: 1. Atrial fibrillation/atrial flutter 2. triple-vessel coronary artery disease, status post redo double vessel coronary artery bypass graft surgery 3. Severe aortic valve stenosis, status post bioprosthetic aortic valve replacement 4. History of non-STEMI 5. Mild to moderate tricuspid valve regurgitation 6. Hypertension 7. Hyperlipidemia 8. History of ITP status post splenectomy 9. Type 2 diabetes mellitus, recent hemoglobin A1c of 6.6% 10. Morbid obesity 11. Previous tobacco dependence 12. Chronic obstructive pulmonary disease with a recent FEV1 54% of predicted value Plan: The patient was seen and examined at his bedside in the emergency department. His chart and diagnostics were reviewed. His case was discussed at length with Dr. Barry Vela from cardiothoracic surgery. He was restarted on his aspirin 325 mg by mouth daily, Cardizem CD 120 mg by mouth daily for radial artery spasm prophylaxis, Cozaar 25 mg by mouth daily, Lasix 40 mg by mouth daily, atorvastatin 40 mg by mouth daily at bedtime and his beta robin metoprolol tartrate 25 mg by mouth 3 times a day. We will replace his magnesium and potassium per protocol. Cardiology Dr. Anderson was consulted for atrial fi brillation/atrial flutter management. Medical management and diabetes management per primary care service. Agree with admission for 24-hour observation. Continue postoperative cardiac surgery discharge instructions. Continue GI and DVT prophylaxis. More recommendations to follow based on patient's clinical course. Thank you Dr. Walters for this consult and we will follow the patient during his h ospital course. Time with Patient: Greater than 30
[2019-10-09] MEDS: metFORMIN 500 MG TAB PO SCH (18:29)
[2019-10-09] MEDS: SYMBICORT 160-4.5 MCG INHALER INHALATION SCH (20:51)
[2019-10-09] MEDS ORDERED: ATORVASTATIN 40 MG TAB PO SCH (21:00)
[2019-10-09 21:06] LABS: Glucose,Whole Blood 112 mg/dL (75-99)
--- NOTE | 2019-10-09 23:33 | P.HPIM ---
History of Present Illness H&P Date: 10/09/19 Chief Complaint: dizziness patient is a 69-year-old malewith a known history of coronary artery disease status post bypass graft and aortic valve replacement on 09/12/2019, diabetes2 [id number], hyperlipidemia and obstructive sleep apnea as well as history of ITPcame to ER with complaints dizziness and lightheadedness and palpitations.Patient says that his symptoms started day before yesterday and has been getting worse. No complaints of chest pain. Does have nausea. Noepisodes of vomiting.patient had recent bypass graft and aortic valve replacement. Rosette huertas was discharged to rehab on 09/22/2019. patient was found to be tachycardic with heart 130s and irregular was found by his visiting nurse and was transferred tospital for further evaluation. Patient reports that he was not given his discharge medications when he wasdischarged from the extended care facility. eKG showed atrial flutter with variable AV block with heart rate 114 chest x-ray showed no acutecardiopulmonary process Potassium 3.4 and magnesium 1.6 TSH within normal limits. Troponin 1 negative. Review of Systems Constitutional: Patient denies any fever or chills . No generalized weakness or weight loss. Abdomen: Patient denied nausea vomiting and diarrhea and abdominal pain. Cardiovascular: Patient denies any chest pain or short of breath patient does have dizziness and palpitations. Respiratory: patient denied any cough is from production. No shortness of breath Neurologic: Patient denied any numbness or tingling headache. Musculoskeletal: Patient denies any complaints of joint swelling or deformity. Skin: Negative Psychiatric: Negative Endocrine: No heat or cold intolerance. No recent weight gain. Genitourinary: No dysuria or hematuria. All other 14 point ROS negative except the above 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 History of Any Multi-Drug Resistant Organisms: None Reported Past Surgical History: Appendectomy, Coronary Bypass/CABG Additional Past Surgical History / Comment(s): spleenectomy, sinus surgery, jaw surgery Past Anesthesia/Blood Transfusion Reactions: No Reported Reaction Past Psychological History: No Psychological Hx Reported Smoking Status: Former smoker Past Alcohol Use History: None Reported Past Drug Use History: None Reported - Past Family History Mother Family Medical History: Congestive Heart Failure (CHF) Father Family Medical History: Myocardial Infarction ([place]) Sister(s) Family Medical History: Coronary Artery Disease (CAD) Additional Family Medical History / Comment(s): Status post coronary artery bypass grafting surgery. Medications and Allergies Home Medications Medication Instructions Recorded Confirmed Type metFORMIN HCL 1,000 mg PO BID 10/11/14 10/09/19 History Cholecalciferol [Vitamin D3 (25 1,000 unit PO W/SUPPER 09/06/19 10/09/19 History Mcg = 1000 Iu)] Vitamin B Complex 1 cap PO W/SUPPER 09/06/19 10/09/19 History Acetaminophen Tab [Tylenol] 1,000 mg PO Q6HR PRN tab 09/22/19 10/09/19 Rx Ascorbic Acid [Vitamin C] 500 mg PO BID-W/MEALS tab 09/22/19 10/09/19 Rx Atorvastatin [Lipitor] 40 mg PO HS tab 09/22/19 10/09/19 Rx Budesonide-Formot 160-4.5 Mcg 2 puff INHALATION RT-BID puff 09/22/19 10/09/19 Rx [Symbicort 160-4.5 Mcg Inhaler] Diltiazem Cd [Cardizem Cd] 120 mg PO DAILY #30 cap.er.24h 09/22/19 10/09/19 Rx Ferrous Sulfate [Iron (65 MG 325 mg PO BID-W/MEALS tab 09/22/19 10/09/19 Rx Elemental)] Furosemide [Lasix] 40 mg PO DAILY #30 tablet 09/22/19 10/09/19 Rx Losartan [Cozaar] 25 mg PO DAILY@1200 tab 09/22/19 10/09/19 Rx Metolazone [Zaroxolyn] 5 mg PO DAILY #5 tablet 09/22/19 10/09/19 Rx Metoprolol Tartrate [Lopressor] 25 mg PO TID tab 09/22/19 10/09/19 Rx Pantoprazole [Protonix] 40 mg PO AC-BRKFST tablet. 09/22/19 10/09/19 Rx Aspirin 325 mg PO W/SUPPER 10/09/19 10/09/19 History Clopidogrel [Plavix] 75 mg PO W/SUPPER 10/09/19 10/09/19 History Folic Acid-Vit B Complex-Vit C 1 mg PO W/SUPPER 10/09/19 10/09/19 History [Nephrocaps] Sennosides/Docusate Sodium 2 tab PO HS 10/09/19 10/09/19 History [Senna-S Laxative Tablet] Allergies Allergy/AdvReac Type Severity Reaction Status Date / Time albuterol AdvReac Unknown Verified 10/09/19 14:39 prednisone AdvReac Anaphylaxis Verified 10/09/19 14:39 Physical Exam Vitals: Vital Signs Temp Pulse Resp BP Pulse Ox 10/09/19 15:00 55 L 20 104/47 95 10/09/19 14:37 87 20 107/63 95 10/09/19 13:37 90 20 103/87 95 10/09/19 12:37 116 H 20 112/77 95 10/09/19 12:34 98.0 F 104 H 20 128/70 96 Intake and Output 10/09/19 10/09/19 10/09/19 06:59 14:59 22:59 Other: Weight 97.522 kg PHYSICAL EXAMINATION: Patient is lying in the bed comfortably, no acute distress, awake alert and oriented.. HEENT: Normocephalic. Neck is supple. Pupils reactive. Nostrils clear. Oral cavity is moist. Ears reveal no drainage. Neck reveals no JVD, carotid bruits, or thyromegaly. CHEST EXAMINATION: Trachea is central. Symmetrical expansion.bibasilar diminished air entry. Lung ferrera clear to auscultation and percussion. CARDIAC: Normal S1, S2 with no gallops. No murmurs . Irregulary irregular rhythm. ABDOMEN: Soft. Bowel sounds normal. No organomegaly. No abdominal bruits. Extremities: trace edema. No clubbing or cyanosis Neurologically awake, alert, oriented x3 with well-coordinated movements. No focal deficits noted Skin: No rash or skin lesions. Psychiatric: Coperative. Nonsuicidal Musculoskeletal: No joint swelling or deformity. Normal range of motion. Results CBC & Chem 7: 10/09/19 13:00 10/09/19 13:00 Labs: Abnormal Lab Results - Last 24 Hours (Table) 10/09/19 10/09/19 Range/Units 13:00 13:00 WBC 11.7 H (3.8-10.6) k/uL RBC 4.18 L (4.30-5.90) m/uL Hgb 12.5 L (13.0-17.5) gm/dL Hct 38.7 L (39.0-53.0) % Plt Count 516 H (150-450) k/uL Eosinophils # 1.4 H (0-0.7) k/uL Potassium 3.4 L (3.5-5.1) mmol/L Chloride 93 L (98-107) mmol/L Carbon Dioxide 32 H (22-30) mmol/L Glucose 130 H (74-99) mg/dL Calcium 10.4 H (8.4-10.2) mg/dL Creatine Kinase 42 L (55-170) U/L Thrombosis Risk Factor Assmnt - DVT/VTE Prophylaxis DVT/VTE Prophylaxis: Pharmacologic Prophylaxis ordered Assessment and Plan Assessment: atrial flutter with variable AV block and RVR Hypokalemia and hypomagnesemia Recent coronary artery bypass graft and aortic valve replacement on 09/12/2019 Mild to moderate tricuspid regurgitation Hypertension Hyperlipidemia Diabetes type [id number] A1c 6.6 COPD stable Previous history of smoking Obesity with BMI 33.7 GI and DVT prophylaxiswith PPI and heparin subcu Plan: Patient was started back on metoprolol and Cardizem 120 mg daily. Continue with telemetry monitoring. continue with aspirin, Plavix and statinsand Cozaar ,Lasix.. Continue with insulin sliding scale andfollow blood cultures.breathing treatme nts as needed. CT surgery is following and further recommendati clinical course. Prognosis is guarded with multiple comorbid conditions. Time with Patient: Greater than 30
[2019-10-10 06:14] LABS: Glucose,Whole Blood 127 mg/dL (75-99)
[2019-10-10] MEDS: metFORMIN 500 MG TAB PO SCH (06:24)
[2019-10-10] MEDS: HEPARIN SODIUM,PORCINE 5,000 UNIT/ML 1 ML VIAL SQ SCH (06:24)
[2019-10-10] MEDS ORDERED: PANTOPRAZOLE 40 MG TABLET PO SCH (07:30)
--- NOTE | 2019-10-10 08:31 | P.PN ---
Subjective Progress Note Date: 10/10/19 Principal diagnosis: Atrial fibrillation status post cardiac surgery. Previous medical history of coronary artery disease with myocardial infarction and severe aortic valve stenosis status post redo 2 vessel CABG and bioprosthetic aortic valve replacement on 09/12/2019 with reoperation for sternal exploration and evacuation of clots, hypertension, hyperlipidemia, type 2 diabetes, ITP status post splenectomy, obesity, previous tobacco dependence, COPD, obstructive sleep apnea with home CPAP use, and family history of heart disease. The patient's currently sitting up in the recliner in no acute distress. Denies any pain or shortness of breath. Currently in normal sinus rhythm, hemodynamically stable. Patient has been able to ambulate, asking if he can take a shower today. No new concerns. Objective - Vital Signs Vital signs: Vital Signs Temp 98.0 F 10/10/19 03:00 Pulse 74 10/10/19 03:00 Resp 16 10/10/19 03:00 BP 110/62 10/10/19 03:00 Pulse Ox 94 L 10/10/19 03:00 Intake & Output 10/09/19 10/10/19 10/10/19 18:59 06:59 18:59 Intake Total 480 Balance 480 Weight 97.522 kg 97.3 kg Intake: Oral 480 Other: Voiding Method Toilet # Voids 2 - Constitutional General appearance: Present: cooperative, no acute distress, obese - Respiratory Details: Lungs sounds diminished bilaterally. Respirations even, nonlabored. Currently on room air with oxygen saturation 94%. Able to achieve 1500 mL on his incentive spirometry. Strong cough. - Cardiovascular Details: S1, S2 present. Regular rate and rhythm, sinus rhythm on telemetry. Sternum stable. Palpable pulses bilaterally. No edema present. No calf pain or tenderness noted. Heart hugger in place with patient demonstrating appropriate use. Antiembolism stockings present. - Gastrointestinal Gastrointestinal Comment(s): Abdomen soft, nontender, nondistended. Active bowel sounds present 4 quadrants. Tolerating diet. - Genitourinary Genitourinary Comment(s): Continues to void clear, yellow urine - Integumentary Integumentary Comment(s): Skin is warm and dry with evidence of good perfusion. Anterior chest incision well approximated, left radial artery harvest site well approximated, left lower extremity EVH site well approximated - Neurologic Neurologic: Present: CNII-XII intact - Musculoskeletal Musculoskeletal: Present: gait normal, strength equal bilaterally - Psychiatric Psychiatric: Present: A&O x's 3, appropriate affect, intact judgment & insight - Allied health notes Allied health notes reviewed: nursing - Labs CBC & Chem 7: 10/09/19 13:00 10/09/19 13:00 Labs: Abnormal Lab Results - Last 24 Hours (Table) 10/09/19 10/09/19 10/09/19 Range/Units 13:00 13:00 21:04 WBC 11.7 H (3.8-10.6) k/uL RBC 4.18 L (4.30-5.90) m/uL Hgb 12.5 L (13.0-17.5) gm/dL Hct 38.7 L (39.0-53.0) % Plt Count 516 H (150-450) k/uL Eosinophils # 1.4 H (0-0.7) k/uL Potassium 3.4 L (3.5-5.1) mmol/L Chloride 93 L (98-107) mmol/L Carbon Dioxide 32 H (22-30) mmol/L Glucose 130 H (74-99) mg/dL POC Glucose (mg/dL) 112 H (75-99) mg/dL Calcium 10.4 H (8.4-10.2) mg/dL Creatine Kinase 42 L (55-170) U/L 10/10/19 Range/Units 06:13 WBC (3.8-10.6) k/uL RBC (4.30-5.90) m/uL Hgb (13.0-17.5) gm/dL Hct (39.0-53.0) % Plt Count (150-450) k/uL Eosinophils # (0-0.7) k/uL Potassium (3.5-5.1) mmol/L Chloride (98-107) mmol/L Carbon Dioxide (22-30) mmol/L Glucose (74-99) mg/dL POC Glucose (mg/dL) 127 H (75-99) mg/dL Calcium (8.4-10.2) mg/dL Creatine Kinase (55-170) U/L Assessment and Plan Assessment: 1. Paroxysmal atrial fibrillation 2. History of coronary artery disease with myocardial infarction, status post redo 2 vessel CABG with reoperation for sternal exploration and evacuation of cl ots 3. History of severe aortic stenosis, status post bioprosthetic aortic valve replacement 4. Hypertension 5. Hyperlipidemia 6. Type 2 diabetes 7. History of ITP status post splenectomy 8. Obesity 9. Previous tobacco dependence 10. COPD 11. Obstructive sleep apnea with home CPAP use 12. Family history of heart disease Plan: 1. Continue to maximize medical therapy with aspirin, statin, Plavix, Cozaar, beta robin therapy. May increase beta robin therapy as tolerated 2. Continue Cardize CD for radial artery spasm prophylaxis. Do not discontinue without discussing with cardiothoracic surgery first 3. Continue oral Lasix and potassium. Magnesium replaced. 4. Encourage incentive spirometry use 10 times every hour while awake 5. Increase activity, ambulate as tolerated. Patient to shower today, and everyday thereafter 6. Continue postoperative cardiac surgery discharge instructions. 7. As patient is stable and back in normal sinus rhythm now that he is on his postoperative medications, he should be discharged to home with home care today. Medications should be delivered to the bedside from outpatient pharmacy prior to discharge. Cardiac surgery discharge instructions and follow-up appointments to be placed on the discharge plan. Time with Patient: Greater than 30
[2019-10-10] MEDS: SYMBICORT 160-4.5 MCG INHALER INHALATION SCH (08:38)
[2019-10-10] MEDS: METOPROLOL TARTRATE 25 MG TAB PO SCH (08:55)
[2019-10-10] MEDS: MAGNESIUM SULFATE-D5W PMX 1 GM in DEXTROSE/WATER 1 100ML.BAG IVPB SCH ×2 (08:55→10:23)
[2019-10-10] MEDS ORDERED: FOLIC ACID-VIT B COMPLEX-VIT C 1 CAP PO SCH (09:00)
[2019-10-10] MEDS ORDERED: ASPIRIN 325 MG TAB PO SCH (09:00)
[2019-10-10] MEDS ORDERED: POTASSIUM CHLORIDE ER 10 MEQ TAB.ER.PRT PO SCH (09:00)
[2019-10-10] MEDS ORDERED: CLOPIDOGREL 75 MG TAB PO SCH (09:00)
[2019-10-10] MEDS ORDERED: TAMSULOSIN 0.4 MG CAP.ER.24H PO SCH (09:00)
[2019-10-10] MEDS ORDERED: FUROSEMIDE 40 MG TAB PO SCH (09:00)
[2019-10-10] MEDS ORDERED: CHOLECALCIFEROL 1,000 UNIT TAB PO SCH (09:00)
[2019-10-10] MEDS ORDERED: DILTIAZEM CD 120 MG CAP.ER.24H PO SCH (09:00)
[2019-10-10 09:08] VITALS: BP 109/66; TEMP 97.8
[2019-10-10 09:36] LABS: HCT 33.3 % (39.0-53.0); HGB 10.7 gm/dL (13.0-17.5); Hypochromasia Marked; MCH 30.3 pg (25.0-35.0); MCHC 32.2 g/dL (31.0-37.0); MCV 94.3 fL (80.0-100.0); Platelet Count 422 k/uL (150-450); Poikilocytosis Slight; RBC 3.53 m/uL (4.30-5.90); RDW 14.5 % (11.5-15.5); WBC 10.7 k/uL (3.8-10.6)
[2019-10-10 09:54] LABS: African American GFR (CKD) >90 (>60 ml/min/1.73 sqM); Anion Gap 9 mmol/L; Blood Urea Nitrogen 19 mg/dL (9-20); Calcium 9.5 mg/dL (8.4-10.2); Carbon Dioxide 30 mmol/L (22-30); Chloride 97 mmol/L (98-107); Glucose 126 mg/dL (74-99); Non-African American GFR(CKD) >90 (>60 ml/min/1.73 sqM); Potassium 3.4 mmol/L (3.5-5.1); Sodium 136 mmol/L (137-145)
[2019-10-10] MEDS ORDERED: POTASSIUM CHLORIDE ER 20 MEQ TAB.ER PO STA (10:03)
--- NOTE | 2019-10-10 10:39 | P.CRDCN ---
History of Present Illness Consult date: 10/10/19 History of present illness: this is a 69-year-old gentleman with history of coronary artery disease and prior bypass grafting surgery in 1999 with a MARTE to the LAD, known aortic valve stenosis, history of platelet disorder status post splenectomy, diabetes, hyperlipidemia, remote history of nicotine dependence who had a recent redo double vessel coronary artery bypass grafting surgery and aortic valve replacement using a 25 mm pericardial bioprosthesis on September 12. Patient was discharged to [facility] on September 22 for rehab. Overall the patient states that he had been feeling quite weak over the past couple of days and having some mild shortness of breath otherwise doing well even with physical therapy. He states that he checked his oxygenation and on their he also can see his heart rate which was found to be in the 1:30 range and quite irregular. For this reason he came to the hospital for further evaluation and treatment. He denies any pa lpitations and no chest discomfort.his EKG on presentation here showed an atrial flutter with a rapid ventricular response.chest x-ray did not show any acute cardiopulmonary process.I pressure 110/60 this morning with a heart rate in the 80s, 97% on room air.magnesium on admission 1.6, 1.7 this morning, troponin 0.012, TSH 2.1.the patient has converted to normal sinus rhythm and at present is in a normal sinus rhythm.at the time of my examination this morning, patient feels well, he has no complaints. He is quite eager to be discharged home. Patient is currently on a full aspirin along with Plavix, on subcu heparin but not initiated on oral anticoagulation. 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 Last Myocardial Infarction Date:: 09/06/2019 History of Any Multi-Drug Resistant Organisms: None Reported Past Surgical History: Appendectomy, Coronary Bypass/CABG Additional Past Surgical History / Comment(s): spleenectomy, sinus surgery, jaw surgery Past Anesthesia/Blood Transfusion Reactions: No Reported Reaction Past Psychological History: No Psychological Hx Reported Smoking Status: Former smoker Past Alcohol Use History: None Reported Past Drug Use History: None Reported - Past Family History Mother Family Medical History: Congestive Heart Failure (CHF) Father Family Medical History: Myocardial Infarction ([place]) Sister(s) Family Medical History: Coronary Artery Disease (CAD) Additional Family Medical History / Comment(s): Status post coronary artery bypass grafting surgery. Medications and Allergies Home Medications Medication Instructions Recorded Confirmed Type metFORMIN HCL 1,000 mg PO BID 10/11/14 10/09/19 History Cholecalciferol [Vitamin D3 (25 1,000 unit PO W/SUPPER 09/06/19 10/09/19 History Mcg = 1000 Iu)] Vitamin B Complex 1 cap PO W/SUPPER 09/06/19 10/09/19 History Acetaminophen Tab [Tylenol] 1,000 mg PO Q6HR PRN tab 09/22/19 10/09/19 Rx Ascorbic Acid [Vitamin C] 500 mg PO BID-W/MEALS tab 09/22/19 10/09/19 Rx Atorvastatin [Lipitor] 40 mg PO HS tab 09/22/19 10/09/19 Rx Budesonide-Formot 160-4.5 Mcg 2 puff INHALATION RT-BID puff 09/22/19 10/09/19 Rx [Symbicort 160-4.5 Mcg Inhaler] Diltiazem Cd [Cardizem Cd] 120 mg PO DAILY #30 cap.er.24h 09/22/19 10/09/19 Rx Ferrous Sulfate [Iron (65 MG 325 mg PO BID-W/MEALS tab 09/22/19 10/09/19 Rx Elemental)] Furosemide [Lasix] 40 mg PO DAILY #30 tablet 09/22/19 10/09/19 Rx Losartan [Cozaar] 25 mg PO DAILY@1200 tab 09/22/19 10/09/19 Rx Metolazone [Zaroxolyn] 5 mg PO DAILY #5 tablet 09/22/19 10/09/19 Rx Metoprolol Tartrate [Lopressor] 25 mg PO TID tab 09/22/19 10/09/19 Rx Pantoprazole [Protonix] 40 mg PO AC-BRKFST tablet. 09/22/19 10/09/19 Rx Aspirin 325 mg PO W/SUPPER 10/09/19 10/09/19 History Clopidogrel [Plavix] 75 mg PO W/SUPPER 10/09/19 10/09/19 History Folic Acid-Vit B Complex-Vit C 1 mg PO W/SUPPER 10/09/19 10/09/19 History [Nephrocaps] Sennosides/Docusate Sodium 2 tab PO HS 10/09/19 10/09/19 History [Senna-S Laxative Tablet] Allergies Allergy/AdvReac Type Severity Reaction Status Date / Time albuterol AdvReac Unknown Verified 10/09/19 14:39 prednisone AdvReac Anaphylaxis Verified 10/09/19 14:39 Physical Exam Vitals: Vital Signs Temp Pulse Pulse Resp BP BP Pulse Ox 10/10/19 08:00 97.8 F 88 19 109/66 97 10/10/19 03:00 98.0 F 74 16 110/62 94 L 10/09/19 23:30 98.5 F 73 16 114/65 97 10/09/19 20:50 97.9 F 86 16 129/63 97 10/09/19 18:02 97.8 F 81 18 116/72 97 10/09/19 17:00 83 20 123/83 95 10/09/19 16:00 55 L 20 114/73 95 10/09/19 15:00 55 L 20 103/72 95 10/09/19 14:37 87 20 107/63 95 10/09/19 13:37 90 20 103/87 95 10/09/19 12:37 116 H 20 112/77 95 10/09/19 12:34 98.0 F 104 H 20 128/70 96 Intake and Output 10/09/19 10/10/19 10/10/19 22:59 06:59 14:59 Intake Total 480 Balance 480 Intake: Oral 480 Other: Voiding Method Toilet # Voids 2 Weight 97.3 kg PHYSICAL EXAMINATION: GENERAL:69-year-old gentleman in no acute distress at the time of my examination HEENT: Head is atraumatic, normocephalic. Pupils equal, round. Sclera anicteric. Conjunctiva are clear. Mucous membranes of the mouth are moist. Neck is supple. There is no elevated jugular venous pressure.no carotid bruit is heard. HEART EXAMINATION: [Heart S1, S2 systolic murmur is heard, sternum is stable. CHEST EXAMINATION:[ Lungs are clear to auscultation and precussion. No chest wall tenderness is noted on palpation or with deep breathing.] ABDOMEN: [ Soft, nontender. Bowel sounds are heard. No organomegaly noted]. EXTREMITIES:[ 2+ peripheral pulses with no evidence of peripheral edema and no calf tenderness noted]. NEUROLOGIC [patient is awake, alert and oriented X3 . Results 10/10/19 06:32 10/10/19 06:32 Cardiac Enzymes 10/09/19 10/09/19 Range/Units 13:00 13:00 AST 32 (17-59) U/L Troponin I <0.012 (0.000-0.034) ng/mL Coagulation 10/09/19 Range/Units 13:00 PT 9.4 (9.0-12.0) sec APTT 23.4 (22.0-30.0) sec CBC 10/09/19 10/10/19 Range/Units 13:00 06:32 WBC 11.7 H 10.7 H (3.8-10.6) k/uL RBC 4.18 L 3.53 L (4.30-5.90) m/uL Hgb 12.5 L 10.7 L (13.0-17.5) gm/dL Hct 38.7 L 33.3 L (39.0-53.0) % Plt Count 516 H 422 (150-450) k/uL Comprehensive Metabolic Panel 10/09/19 10/10/19 Range/Units 13:00 06:32 Sodium 138 136 L (137-145) mmol/L Potassium 3.4 L 3.4 L (3.5-5.1) mmol/L Chloride 93 L 97 L (98-107) mmol/L Carbon Dioxide 32 H 30 (22-30) mmol/L BUN 17 19 (9-20) mg/dL Creatinine 0.85 0.81 (0.66-1.25) mg/dL Glucose 130 H 126 H (74-99) mg/dL Calcium 10.4 H 9.5 (8.4-10.2) mg/dL AST 32 (17-59) U/L ALT 24 (4-49) U/L Alkaline Phosphatase 107 (38-126) U/L Total Protein 7.8 (6.3-8.2) g/dL Albumin 4.2 (3.5-5.0) g/dL Current Medications Generic Name Dose Route Start Last Admin Trade Name Freq PRN Reason Stop Dose Admin Acetaminophen 1,000 mg 10/09/19 13:28 Tylenol Tab PO Q6HR PRN Fever and/ or MILD Pain Aspirin 325 mg 10/10/19 09:00 10/10/19 08:55 Aspirin PO 325 mg DAILY [facility] Administration Atorvastatin Calcium 40 mg 10/09/19 21:00 10/09/19 20:58 Lipitor PO Not Given HS [facility] Budesonide/Formoterol Fumarate 2 puff 10/09/19 20:00 10/10/19 08:38 Symbicort 160-4.5 Mcg Inhaler INHALATION Not Given RT-BID [facility] Cholecalciferol 1,000 unit 10/10/19 09:00 10/10/19 08:55 Vitamin D3 (25 Mcg = 1000 Iu) PO 1,000 unit DAILY [facility] Administration Clopidogrel Bisulfate 75 mg 10/10/19 09:00 10/10/19 08:55 Plavix PO 75 mg DAILY [facility] Administration Diltiazem HCl 120 mg 10/10/19 09:00 10/10/19 08:55 Cardizem Cd PO 120 mg DAILY [facility] Administration Furosemide 40 mg 10/10/19 09:00 10/10/19 08:55 Lasix PO 40 mg DAILY [facility] Administration Heparin Sodium (Porcine) 5,000 unit 10/09/19 14:00 10/10/19 06:24 Heparin SQ 5,000 unit Q8H [facility] Administration Losartan Potassium 25 mg 10/10/19 12:00 Cozaar PO DAILY@1200 [facility] Magnesium Hydroxide 2,400 mg 10/09/19 13:28 Milk Of Magnesia PO DAILY PRN Constipation Metformin HCl 1,000 mg 10/09/19 17:30 10/10/19 06:24 Glucophage PO 1,000 mg AC-BID [facility] Administration Metoprolol Tartrate 25 mg 10/09/19 16:00 10/10/19 08:55 Lopressor PO 25 mg TID [facility] Administration Miscellaneous Information 1 each 10/09/19 13:38 Magnesium Per Protocol MISCELLANE DAILY PRN Per Protocol Protocol Miscellaneous Information 1 each 10/09/19 13:39 Potassium Per Protocol MISCELLANE DAILY PRN Per Protocol Protocol Multivit/Ca Carb/B Cmplx/FA/Prenat 1 each 10/10/19 09:00 Nephrocaps PO DAILY [facility] Naloxone HCl 0.2 mg 10/09/19 14:17 Narcan IV Q2M PRN Opioid Reversal Pantoprazole Sodium 40 mg 10/10/19 07:30 10/10/19 06:24 Protonix PO 40 mg AC-BRKFST [facility] Administration Potassium Chloride 10 meq 10/10/19 09:00 10/10/19 08:55 K-Dur 10 PO 10 meq DAILY [facility] Administration Sodium Chloride 10 ml 10/10/19 09:00 10/10/19 08:59 Saline Flush IV 10 ml BID [facility] Administration Tamsulosin HCl 0.4 mg 10/10/19 09:00 10/10/19 08:55 Flomax PO 0.4 mg DAILY [facility] Administration Intake and Output 10/09/19 10/10/19 10/10/19 22:59 06:59 14:59 Intake Total 480 Balance 480 Intake: Oral 480 Other: Voiding Method Toilet # Voids 2 Weight 97.3 kg 10/10/19 06:32 10/10/19 06:32 EKG Interpretations (text) EKG on presentation here shows atrial flutter with rapid ventricular response Assessment and Plan Plan: assessment and plan 1. atrial flutter with rapid ventricular response, typical, currently in normal sinus rhythm 2. History of coronary artery disease with myocardial infarction, status post redo 2 vessel CABG with reoperation for sternal exploration and evacuation of clots 3. History of severe aortic stenosis, status post bioprosthetic aortic valve replacement 4. Hypertension 5. Hyperlipidemia 6. Type 2 diabetes 7. History of ITP status post splenectomy 8. Obesity 9. Previous tobacco dependence 10. COPD 11. Obstructive sleep apnea with home CPAP use 12. Family history of heart disease Plan TSH level is normal, patient's potassium was low which is being replaced, magnesium level was also low which is currently being replaced. We will increase dose of metoprolol to 50 mg one tablet by mouth twice a day. Patient will require anticoagulation for stroke prevention.we will discuss with Cardiothoracic Surgery.Our recommendation would be Eliquis and Plavix, and to d/c asa. Further recommendations to follow DNP note has been reviewed, I agree with a documented findings and plan of care. Patient was seen and examined.
[2019-10-10] MEDS ORDERED: APIXABAN 5 MG TAB PO SCH (11:15)
[2019-10-10] MEDS ORDERED: LOSARTAN 25 MG TAB PO SCH (12:00)
[2019-10-10 12:35] LABS: Glucose,Whole Blood 107 mg/dL (75-99)
[2019-10-10 13:24] VITALS: BMI 33.5
[2019-10-10 14:21] VITALS: PULSE 69; RESP 17
[2019-10-10] MEDS ORDERED: METOPROLOL TARTRATE 50 MG TAB PO SCH (21:00)
[2019-10-11] MEDS ORDERED: ASPIRIN 81 MG PO SCH (09:00)
--- NOTE | 2019-10-30 21:28 | P.DS ---
Providers Date of admission: 10/09/19 14:17 Expected date of discharge: 10/10/19 Attending physician: Lele Dumont Consults: 10/09/19 13:05 Consult Physician Stat Consulting Provider: Barry Vela Consult Reason/Comments: postop A. fib Do you want consulting provider notified?: Already Contacted 10/09/19 15:18 Consult Physician Routine Consulting Provider: Chaitanay Post Consult Reason/Comments: postoperative paroxysmal atrial fibrillation Do you want consulting provider notified?: Yes Primary care physician: Timo Osuna [facility] Course: Discharge diagnosis atrial flutter with variable AV block and RVR Hypokalemia and hypomagnesemia Recent coronary artery bypass graft and aortic valve replacement on 09/12/2019 Mild to moderate tricuspid regurgitation Hypertension Hyperlipidemia Diabetes type [id number] A1c 6.6 COPD stable Previous history of smoking Obesity with BMI 33.7 GI and DVT prophylaxiswith PPI and heparin subcu Hospital course patient is a 69-year-old malewith a known history of coronary artery disease status post bypass graft and aortic valve replacement on 09/12/2019, diabetes2 [id number], hyperlipidemia and obstructive sleep apnea as well as history of ITPcame to ER with complaints dizziness and lightheadedness and palpitations.Patient says that his symptoms started day before yesterday and has been getting worse. No complaints of chest pain. Does have nausea. Noepisodes of vomiting.patient had recent bypass graft and aortic valve replacement. Patient was discharged to rehab on 09/22/2019. patient was found to be tachycardic with heart 130s and irregular was found [facility]. Patient reports that he was not given his discharge medications when he wasdis[facility]. eKG showed atrial flutter with variable AV block with heart rate 114 chest x-ray showed no acutecardiopulmonary process Potassium 3.4 and magnesium 1.6 TSH within normal limits. Troponin 1 negative.1. Patient was started back on metoprolol and Cardizem 120 mg daily. Continue with telemetry monitoring. continue with Plavix and statinsand Cozaar ,Lasix..replace electrolytes. Patient was started on Eliquis. Aspirin has been discontinued. Continue with insulin sliding scale andfollow blood cultures.breathing treatments as needed. CT surgery and cardiology has seen the patient . Patient did improve clinically and is being discharged home today. Outpatient follow-up with cardiology was recommended. PHYSICAL EXAMINATION: Patient is lying in the bed comfortably, no acute distress, awake alert and oriented.. HEENT: Normocephalic. Neck is supple. Pupils reactive. Nostrils clear. Oral cavity is moist. Ears reveal no drainage. Neck reveals no JVD, carotid bruits, or thyromegaly. CHEST EXAMINATION: Trachea is central. Symmetrical expansion. Bibasilar diminished air entry. Lung ferrera clear to auscultation and percussion. CARDIAC: Normal S1, S2 with no gallops. No murmurs ABDOMEN: Soft. Bowel sounds normal. No organomegaly. No abdominal bruits. Extremities: reveal no edema. No clubbing or cyanosis Neurologically awake, alert, oriented x3 with well-coordinated movements. No focal deficits noted Skin: No rash or skin lesions. Psychiatric: Coperative. Nonsuicidal Musculoskeletal: No joint swelling or deformity. Normal range of motion. Vital Signs Temp Pulse Pulse Resp BP BP Pulse Ox 10/10/19 08:00 97.8 F 88 19 109/66 97 10/10/19 03:00 98.0 F 74 16 110/62 94 L 10/09/19 23:30 98.5 F 73 16 114/65 97 10/09/19 20:50 97.9 F 86 16 129/63 97 10/09/19 18:02 97.8 F 81 18 116/72 97 10/09/19 17:00 83 20 123/83 95 10/09/19 16:00 55 L 20 114/73 95 10/09/19 15:00 55 L 20 103/72 95 10/09/19 14:37 87 20 107/63 95 10/09/19 13:37 90 20 103/87 95 10/09/19 12:37 116 H 20 112/77 95 10/09/19 12:34 98.0 F 104 H 20 128/70 96 Total time taken greater than 35 minutes including 18 minutes for counseling and coordination of care. Patient Condition at Discharge: Stable Plan - Discharge Summary Discharge Rx Participant: No New Discharge Prescriptions: New Metoprolol Tartrate [Lopressor] 50 mg PO BID #60 tab Aspirin 81 mg PO DAILY #20 chew Apixaban [Eliquis] 5 mg PO BID #60 tab Tamsulosin [Flomax] 0.4 mg PO DAILY #30 cap.er.24h Potassium Chloride ER [K-Dur 10] 10 meq PO DAILY #30 tab.er.prt Tamsulosin [Flomax] 0.4 mg PO DAILY #30 cap Continue Cholecalciferol [Vitamin D3 (25 Mcg = 1000 Iu)] 1,000 unit PO W/SUPPER Vitamin B Complex 1 cap PO W/SUPPER Budesonide-Formot 160-4.5 Mcg [Symbicort 160-4.5 Mcg Inhaler] 2 puff INHALATION RT-BID puff Acetaminophen Tab [Tylenol] 1,000 mg PO Q6HR PRN tab PRN Reason: Fever and/ or MILD Pain Ascorbic Acid [Vitamin C] 500 mg PO BID-W/MEALS tab Folic Acid-Vit B Complex-Vit C [Nephrocaps] 1 mg PO W/SUPPER Diltiazem Cd [Cardizem CD] 120 mg PO DAILY #30 cap.er.24h Losartan [Cozaar] 25 mg PO DAILY@1200 #30 tab Furosemide [Lasix] 40 mg PO DAILY #30 tablet Atorvastatin [Lipitor] 40 mg PO HS #30 tab metFORMIN HCL 1,000 mg PO BID #60 tab Pantoprazole [Protonix] 40 mg PO AC-BRKFST #30 tablet.dr Discontinued Ferrous Sulfate [Iron (65 MG Elemental)] 325 mg PO BID-W/MEALS tab Metoprolol Tartrate [Lopressor] 25 mg PO TID tab Metolazone [Zaroxolyn] 5 mg PO DAILY #5 tablet Aspirin 325 mg PO W/SUPPER Clopidogrel [Plavix] 75 mg PO W/SUPPER Sennosides/Docusate Sodium [Senna-S Laxative Tablet] 2 tab PO HS Discharge Medication List Cholecalciferol [Vitamin D3 (25 Mcg = 1000 Iu)] 1,000 unit PO W/SUPPER 09/06/19 [History] Vitamin B Complex 1 cap PO W/SUPPER 09/06/19 [History] Acetaminophen Tab [Tylenol] 1,000 mg PO Q6HR PRN tab 09/22/19 [Rx] Ascorbic Acid [Vitamin C] 500 mg PO BID-W/MEALS tab 09/22/19 [Rx] Budesonide-Formot 160-4.5 Mcg [Symbicort 160-4.5 Mcg Inhaler] 2 puff INHALATION RT-BID puff 09/22/19 [Rx] Folic Acid-Vit B Complex-Vit C [Nephrocaps] 1 mg PO W/SUPPER 10/09/19 [History] Apixaban [Eliquis] 5 mg PO BID #60 tab 10/10/19 [Rx] Aspirin 81 mg PO DAILY #20 chew 10/10/19 [Rx] Atorvastatin [Lipitor] 40 mg PO HS #30 tab 10/10/19 [Rx] Diltiazem Cd [Cardizem CD] 120 mg PO DAILY #30 cap.er.24h 10/10/19 [Rx] Furosemide [Lasix] 40 mg PO DAILY #30 tablet 10/10/19 [Rx] Losartan [Cozaar] 25 mg PO DAILY@1200 #30 tab 10/10/19 [Rx] Metoprolol Tartrate [Lopressor] 50 mg PO BID #60 tab 10/10/19 [Rx] Pantoprazole [Protonix] 40 mg PO AC-BRKFST #30 tablet.dr 10/10/19 [Rx] Potassium Chloride ER [K-Dur 10] 10 meq PO DAILY #30 tab.er.prt 10/10/19 [Rx] Tamsulosin [Flomax] 0.4 mg PO DAILY #30 cap 10/10/19 [Rx] Tamsulosin [Flomax] 0.4 mg PO DAILY #30 cap.er.24h 10/10/19 [Rx] metFORMIN HCL 1,000 mg PO BID #60 tab 10/10/19 [Rx] Follow up Appointment(s)/Referral(s): Chaitanya Post MD [STAFF PHYSICIAN] - 10/14/19 10:00 am (Appointment is with ROLF Claros) Barry Vela MD [STAFF PHYSICIAN] - (Office will call with appointment, likely 10/17/19. Appoinment for 10/13/19 is cancelled) Timo Mayorga III, MD [Primary Care Provider] - 11/14/19 1:00 pm Raheem Oquendo DO [Doctor of Osteopathic Medicine] - 10/24/19 2:30 pm (Appointment is with ROLF Starr) Patient Instructions/Handouts: A-fib (Atrial Fibrillation) (DC), Safe Use of Anticoagulants (DC) Activity/Diet/Wound Care/Special Instructions: DISCHARGE INSTRUCTIONS: 1. No driving for 4 weeks, or until physician gives their ok. 2. The patient should sleep in their own bed, no medical bed needed. 3. Stairs are not an issue. If the bedroom is upstairs, it is advised that the patient go up at night and down in the morning for the first week. Go slowly, using handrail and take 1 step at a time. 4. KORTNEY hose are to be worn for 30 days or until physician discontinues. 5. Heart hugger is to be worn 100% of the time until physician discontinues.(except when showering) 6. No lifting, pushing, or pulling more than 10 pounds for 12 weeks. The physician will advise of any restriction changes. 7. The patient is expected to continue the prescribed walking program. 8. Continue pain control per as needed orders. 9. Continue with incentive spirometry and splinting/heart hugger until otherwise directed by the physician. 10. Must shower daily using liquid antibacterial soap and a separate white washcloth for each individual incision. 11. Routine sternal incision care. No powders, lotions, ointments on incisions. No dressings are necessary on incisions unless they are draining. Dermabond tape is to remain on sternal incision until surgeon follow-up. 12. Please call surgeon/VAT SKIMMER for temp greater than 101 F or purulent drainage from incisions 13. All prescriptions refills need to be filled through whey department operator/primary care physician. HOME HEALTH SERVICES TO PROVIDE: RN SKILLED HOME CARE SERVICES FOR POST-OP SURGICAL PATIENTS WITH THE FOLLOWING: Coronary Artery Bypass Surgery (CABG), Mitral Valve Replacement/Repair ( MVR), Aortic Valve Replacement/Repair (AVR) RN TO CONTINUE EDUCATION FROM ``ROAD TO A HEALTH HEART PATIENT EDUCATION MANUAL (GIVEN TO PATIENT IN THE HOSPITAL) MEDICATION RECONCILIATION WITH EDUCATION NEEDED ON FIRST HOME VISIT EMPHASIZE IMPORTANCE OF WEARING BREAST SUPPORT/HEART HUGGER ENCOURAGE USE OF INCENTIVE SPIROMETER 10 X EVERY HOUR WHILE AWAKE ENCOURAGE UTILIZATION OF LOWER EXTREMITY COMPRESSION STOCKINGS/KORTNEY HOSE and ELEVATE LEGS ABOVE LEVEL OF HEART WHILE AT REST. ENCOURAGE AMBULATION 3-5x/day INCREASING TOLERATES, WHILE AVOIDING EXTREMES IN TEMPERATURE FREQUENCY: RN TO OPEN THE PATIENT WITHIN 24 HOURS OF DISCHARGE FROM THE HOSPITAL WITH TELEHEALTH INSTALLED AT [facility] [place], RN TO VISIT 2-3 X A WEEK FOR 4 WEEKS ESTABLISHED BY PATIENT NEEDS. For any questions or concerns please call director river restoration Geetha @ or Saeid @ Discharge Disposition: HOME SELF-CARE
== END 2019-10-10 15:45 | disposition home or self-care (01) ==
LOC: EC 12:31 → 3SCARD 14:17
PROVIDERS: ADMIT Internal Medicine; ATTEND Internal Medicine
DX: I48.92 Unspecified atrial flutter (principal); I44.39 Other atrioventricular block; E87.6 Hypokalemia; E83.42 Hypomagnesemia; E11.9 Type 2 diabetes mellitus without complications; Z95.1 Presence of aortocoronary bypass graft; Z95.3 Presence of xenogenic heart valve; I07.1 Rheumatic tricuspid insufficiency; E66.01 Morbid (severe) obesity due to excess calories; E78.5 Hyperlipidemia, unspecified; G47.33 Obstructive sleep apnea (adult) (pediatric); I10 Essential (primary) hypertension; I25.10 Atherosclerotic heart disease of native coronary artery without angina pectoris; I25.2 Old myocardial infarction; I35.0 Nonrheumatic aortic (valve) stenosis; I48.0 Paroxysmal atrial fibrillation; G47.30 Sleep apnea, unspecified; J44.9 Chronic obstructive pulmonary disease, unspecified; Z68.33 Body mass index [BMI] 33.0-33.9, adult; Z79.02 Long term (current) use of antithrombotics/antiplatelets; Z79.4 Long term (current) use of insulin; Z79.51 Long term (current) use of inhaled steroids; Z79.82 Long term (current) use of aspirin; Z79.899 Other long term (current) drug therapy; Z82.49 Family history of ischemic heart disease and other diseases of the circulatory system; Z86.2 Personal history of diseases of the blood and blood-forming organs and certain disorders involving the immune mechanism; Z87.891 Personal history of nicotine dependence; Z90.81 Acquired absence of spleen; Z88.8 Allergy status to other drugs, medicaments and biological substances; Z99.89 Dependence on other enabling machines and devices
CPT/HCPCS: 96366 ×3; 96372 ×3; 96365; 96367; 99285; 36415; 93005; 80053; 80048; 82550; 83735 ×2; 84443; 84484; 85025; 85027; 85610; 85730; 71046; G0378 ×2; J1644 ×2; J3475 ×2

== ENCOUNTER → 2019-10-30 | Outpatient (CLI) | payer MEDICARE ==
[2019-10-30 09:48] LABS: Basophils # (A) 0.3 k/uL (0-0.2); Basophils % (A) 3 %; Eosinophils # (A) 1.4 k/uL (0-0.7); Eosinophils % (A) 15 %; HCT 42.8 % (39.0-53.0); HGB 13.1 gm/dL (13.0-17.5); Hypochromasia Slight; Lymphocytes % (A) 22 %; MCH 28.8 pg (25.0-35.0); MCHC 30.6 g/dL (31.0-37.0); MCV 94.1 fL (80.0-100.0); Mean Platelet Volume 9.2; Monocytes # (A) 0.7 k/uL (0-1.0); Monocytes % (A) 7 %; Neutrophils # (A) 4.7 k/uL (1.3-7.7); Neutrophils % (A) 51 %; Platelet Count 292 k/uL (150-450); RBC 4.55 m/uL (4.30-5.90); RDW 14.3 % (11.5-15.5); WBC 9.3 k/uL (3.8-10.6)
[2019-10-30 17:01] LABS: African American GFR (CKD) 101.4 (60.0-200.0); Albumin 4.3 g/dL (3.80-4.90); Albumin/Globulin Ratio 1.79 (1.60-3.17); Anion Gap 10.2 mmol/L (4.00-12.00); BUN/Creat Ratio 17.78 Ratio (12.00-20.00); Calcium 9.5 mg/dL (8.7-10.3); Carbon Dioxide 27.8 mmol/L (21.6-31.8); Globulin 2.4 g/dL (1.6-3.3); Non-African American GFR(CKD) 87.5 (60.0-200.0); Potassium 4.5 mmol/L (3.5-5.5); Total Bilirubin 0.4 mg/dL (0.3-1.2); Total Protein 6.7 g/dL (6.2-8.2)
== END | disposition home or self-care (01) ==
LOC: LABWHC1 08:01
PROVIDERS: ATTEND Family Medicine
DX: I25.10 Atherosclerotic heart disease of native coronary artery without angina pectoris (principal); I48.20 Chronic atrial fibrillation, unspecified; E55.9 Vitamin D deficiency, unspecified; Z95.2 Presence of prosthetic heart valve
CPT/HCPCS: 36415; 80053; 82306; 83735; 85025

== ENCOUNTER → 2019-11-19 | Outpatient (CLI) | payer MEDICARE ==
[2019-11-19 07:53] LABS: HCT 42.3 % (39.0-53.0); HGB 12.7 gm/dL (13.0-17.5); Hypochromasia Moderate; MCH 27.7 pg (25.0-35.0); MCHC 29.9 g/dL (31.0-37.0); MCV 92.4 fL (80.0-100.0); Platelet Count 303 k/uL (150-450); RBC 4.58 m/uL (4.30-5.90); RDW 13.8 % (11.5-15.5)
[2019-11-19 12:11] LABS: African American GFR (CKD) 101.4 (60.0-200.0); Albumin 4.3 g/dL (3.80-4.90); Albumin/Globulin Ratio 1.87 (1.60-3.17); Anion Gap 9.3 mmol/L (4.00-12.00); BUN/Creat Ratio 15.56 Ratio (12.00-20.00); Calcium 9.1 mg/dL (8.7-10.3); Carbon Dioxide 26.7 mmol/L (21.6-31.8); Globulin 2.3 g/dL (1.6-3.3); Non-African American GFR(CKD) 87.5 (60.0-200.0); Potassium 4.5 mmol/L (3.5-5.5); Total Bilirubin 0.5 mg/dL (0.3-1.2); Total Protein 6.6 g/dL (6.2-8.2)
== END | disposition home or self-care (01) ==
LOC: LABWHC1 06:41
PROVIDERS: ATTEND Internal Medicine Cardiovascular Disease
DX: R55 Syncope and collapse (principal)
CPT/HCPCS: 36415; 80053; 85027

== ENCOUNTER → 2020-03-03 | Outpatient (CLI) | payer MEDICARE ==
[2020-03-03 16:13] LABS: Chol/HDL Ratio 3.82
== END | disposition home or self-care (01) ==
LOC: LABWHC1 08:03
PROVIDERS: ATTEND Nurse Practitioner Adult Health
DX: I10 Essential (primary) hypertension (principal); E78.5 Hyperlipidemia, unspecified; E55.9 Vitamin D deficiency, unspecified; E61.2 Magnesium deficiency
CPT/HCPCS: 36415; 80061; 82306; 83735; 84443

== ENCOUNTER 2020-05-14 03:43 | Observation (INO) | payer MEDICARE ==
[2020-05-14 04:27] LABS: Basophils # (A) 0.2 k/uL (0-0.2); Basophils % (A) 1 %; Eosinophils # (A) 0.5 k/uL (0-0.7); Eosinophils % (A) 4 %; HCT 48.8 % (39.0-53.0); HGB 15.6 gm/dL (13.0-17.5); Lymphocytes # (A) 3.3 k/uL (1.0-4.8); Lymphocytes % (A) 27 %; MCH 29.7 pg (25.0-35.0); MCV 92.7 fL (80.0-100.0); Mean Platelet Volume 8.9; Monocytes # (A) 1.1 k/uL (0-1.0); Monocytes % (A) 9 %; Neutrophils # (A) 6.7 k/uL (1.3-7.7); Neutrophils % (A) 56 %; Platelet Count 209 k/uL (150-450); RBC 5.26 m/uL (4.30-5.90); RDW 13.8 % (11.5-15.5); WBC 12.1 k/uL (3.8-10.6)
--- NOTE | 2020-05-14 04:30 | XR ---
EXAMINATION TYPE: XR chest 2V DATE OF EXAM: 05/14/2020 COMPARISON: 10/09/2019 HISTORY: Dysrhythmia TECHNIQUE: 2 views FINDINGS: There is no heart failure nor confluent pneumonic infiltrate. There are sternal wires. Cost ophrenic angles are clear. There is cardiac valve surgery. Bony thorax is intact. IMPRESSION: No active cardiopulmonary disease. No change.
[2020-05-14] MEDS ORDERED: ONDANSETRON 4 MG/2 ML VIAL IVP STA (04:39)
[2020-05-14 04:44] LABS: INR 0.9 (<1.2); Partial Thromboplastin Time 23.6 sec (22.0-30.0); Prothrombin Time 9.3 sec (9.0-12.0)
[2020-05-14 04:54] LABS: ALT 21 U/L (4-49); AST 34 U/L (17-59); African American GFR (CKD) >90 (>60 ml/min/1.73 sqM); Albumin 4.4 g/dL (3.5-5.0); Alkaline Phosphatase 95 U/L (38-126); Anion Gap 10 mmol/L; Blood Urea Nitrogen 20 mg/dL (9-20); Calcium 9.6 mg/dL (8.4-10.2); Carbon Dioxide 26 mmol/L (22-30); Chloride 98 mmol/L (98-107); Glucose 215 mg/dL (74-99); Non-African American GFR(CKD) >90 (>60 ml/min/1.73 sqM); Potassium 4.3 mmol/L (3.5-5.1); Sodium 134 mmol/L (137-145); Total Bilirubin 0.4 mg/dL (0.2-1.3); Total Protein 7.7 g/dL (6.3-8.2)
[2020-05-14] MEDS ORDERED: NITROGLYCERIN SL TABS 0.4 MG TAB SUBLINGUAL PRN (05:51)
--- NOTE | 2020-05-14 06:00 | ED ---
Chest Pain HPI - General Chief Complaint: Chest Pain Stated Complaint: Dizziness, back pain, nausea Time Seen by Provider: 05/14/20 04:02 Source: patient Mode of arrival: ambulatory Limitations: no limitations - History of Present Illness Initial Comments: 's patient is 69-year-old man who presents to be evaluated for chest discomfort that was coming by lightheadedness and some nausea. The patient states this had started tonight. He was trying to sleep. Patient had been trying sleep and then developed a sharp stabbing pain near his right scapula. He states that he was not able to find a comfortable position. That was followed by the development of a vague chest discomfort that he is not able to characterize well. He also is having some nausea and feeling lightheaded like he will pass out. The patient states that these symptoms were similar to what he had when he was found to have previous heart attack. MD Complaint: chest pain -: hour(s) Onset: during rest Pain Location: substernal Pain Radiation: none Severity: mild Quality: dull Consistency: constant Improves With: nothing Worsens With: nothing Anginal Symptoms: nausea, other (Lightheadedness) Treatments Prior to Arrival: none - Related Data Home Medications Medication Instructions Recorded Confirmed Ascorbic Acid [Vitamin C] 1,000 mg PO DAILY 05/14/20 05/14/20 Ashwagandha 1 tab PO BID 05/14/20 05/14/20 Astragalus 1 tab PO BID 05/14/20 05/14/20 Cholecalciferol (Vitamin D3) 125 mcg PO DAILY 05/14/20 05/14/20 [Vitamin D3] Chromium Picolinate(Unknown Dose) 1 tab PO DAILY 05/14/20 05/14/20 De-Ribbed Lien Powder 1 scoop PO BID 05/14/20 05/14/20 Egg Protein Powder 1 scoop PO DAILY 05/14/20 05/14/20 Fish Oil/Dha/Epa [Fish Oil 1,200 1 cap PO TID 05/14/20 05/14/20 mg Fish Oil] Ginseng W/Capitan Jelly 2 tab PO DAILY 05/14/20 05/14/20 Ip-6 Inositol 3 tab PO BID 05/14/20 05/14/20 L-Carnitine(Unknown Dose) 2 tab PO BID 07/24/20 07/24/20 Lutein 20 mg PO DAILY 05/14/20 05/14/20 Milk Thistle(Unknown Dose) 1 tab PO BID 05/14/20 05/14/20 [place] Lind Extract 1 tab PO DAILY 05/14/20 05/14/20 Capitan Honey Jelly 1 tsp PO DAILY 05/14/20 05/14/20 Selenium(Unknown Dose) 1 tab PO DAILY 05/14/20 05/14/20 Spironolactone 25 mg PO HS 05/14/20 05/14/20 [place] Lecithin Powder 1 scoop PO DAILY 05/14/20 05/14/20 Turmeric Root Extract [Turmeric] 500 mg PO BID PRN 05/14/20 05/14/20 Ubidecarenone [Co Q-10] 100 mg PO BID 05/14/20 05/14/20 Vitamin D3 W/Iodine 1 tab PO DAILY 05/14/20 05/14/20 Vitamin K(Unknown Dose) 1 tab PO DAILY 05/14/20 05/14/20 Zinc 50 mg PO DAILY 05/14/20 05/14/20 Previous Rx's Medication Instructions Recorded Apixaban [Eliquis] 5 mg PO BID #60 tab 10/10/19 Diltiazem Cd [Cardizem CD] 120 mg PO DAILY #30 cap.er.24h 10/10/19 Furosemide [Lasix] 40 mg PO DAILY #30 tablet 10/10/19 Metoprolol Tartrate [Lopressor] 50 mg PO BID #60 tab 10/10/19 metFORMIN HCL 1,000 mg PO BID #60 tab 10/10/19 Aspirin 81 mg PO DAILY #30 chew 05/15/20 Atorvastatin [Lipitor] 40 mg PO HS #30 tab 05/15/20 Cephalexin [Keflex] 500 mg PO QID #21 cap 05/15/20 Losartan [Cozaar] 25 mg PO DAILY@1200 #30 tab 05/15/20 Meclizine [Antivert] 12.5 mg PO BID PRN #10 tab 05/15/20 Nitroglycerin Sl Tabs [Nitrostat] 0.4 mg SUBLINGUAL Q5M PRN #20 tab 05/15/20 Nystatin 100,000Unit/gm Cream 1 applic TOPICAL DAILY #1 applic 05/15/20 [Mycostatin Cream] Allergies Allergy/AdvReac Type Severity Reaction Status Date / Time prednisone Allergy Anaphylaxis Verified 05/14/20 08:36 albuterol AdvReac Unknown Verified 05/14/20 08:36 Review of Systems ROS Statement: Those systems with pertinent positive or pertinent negative responses have been documented in the HPI. ROS Other: All systems not noted in ROS Statement are negative. Constitutional: Denies: fever, chills, weakness Respiratory: Denies: cough, dyspnea Cardiovascular: Reports: as per HPI, chest pain. Denies: palpitations, orthopnea, edema, syncope Gastrointestinal: Reports: nausea. Denies: abdominal pain, vomiting, diarrhea Genitourinary: Denies: dysuria, hematuria Musculoskeletal: Denies: back pain Skin: Denies: rash Neurological: Denies: headache, weakness, numbness EKG Findings - EKG Comments: EKG Findings:: Possible old septal infarct. - EKG Results: EKG: interpreted by RICARDO, sinus rhythm (Rate 72 bpm), normal axis, normal ST/T Past Medical History Past Medical History: Blood Disorder, Coronary Artery Disease (CAD), Chest Pain / Angina, Diabetes Mellitus, Hyperlipidemia, Myocardial Infarction ([place]), Sleep Apnea/CPAP/BIPAP Additional Past Medical History / Comment(s): ITP Last Myocardial Infarction Date:: 09/06/2019 History of Any Multi-Drug Resistant Organisms: None Reported Past Surgical History: Appendectomy, Coronary Bypass/CABG, Heart Catheterization With Stent Additional Past Surgical History / Comment(s): spleenectomy, sinus surgery, jaw surgery Past Anesthesia/Blood Transfusion Reactions: No Reported Reaction Past Psychological History: No Psychological Hx Reported Past Alcohol Use History: None Reported Past Drug Use History: None Reported - Past Family History Mother Family Medical History: Congestive Heart Failure (CHF) Father Family Medical History: Myocardial Infarction (LA) Sister(s) Family Medical History: Coronary Artery Disease (CAD) Additional Family Medical History / Comment(s): Status post coronary artery bypass grafting surgery. General Exam Limitations: no limitations General appearance: alert, in no apparent distress Head exam: Present: atraumatic, normocephalic Eye exam: Present: normal appearance. Absent: scleral icterus, conjunctival injection Neck exam: Present: normal inspection Respiratory exam: Present: normal lung sounds bilaterally. Absent: respiratory distress, wheezes, rales, rhonchi, stridor Cardiovascular Exam: Present: regular rate, normal rhythm, normal heart sounds. Absent: systolic murmur, diastolic murmur, rubs, gallop GI/Abdominal exam: Present: soft. Absent: distended, tenderness, guarding, rebound, rigid, mass Extremities exam: Present: normal inspection, normal capillary refill. Absent: pedal edema, calf tenderness Back exam: Present: normal inspection Neurological exam: Present: alert Skin exam: Present: warm, dry, intact, normal color. Absent: rash Course Vital Signs 05/14/20 05/14/20 05/14/20 03:46 05:37 06:00 Temperature 97.9 F 97.6 F Pulse Rate 75 67 62 Respiratory 18 18 18 Rate Blood Pressure 157/80 128/78 110/62 O2 Sat by Pulse 96 98 95 Oximetry Disposition Clinical Impression: Impetigo, Nausea, Chest pain Disposition: ADMITTED IP TO THIS HOSP Condition: Fair Is patient prescribed a controlled substance at d/c from ED?: No
--- NOTE | 2020-05-14 08:48 | P.HPIM ---
History of Present Illness This is a pleasant 69 years old male with past medical history of hypertension, coronary artery disease status post 2 vessel bypass surgery, sleep apnea on CPAP/BiPAP, hyperlipidemia, diabetes mellitus. He is a patient of Dr. Mayorga, he follows with barrelhead inspector Dr. Anderson and sees neurologist Dr. Cristiano hale for his herniated disc and chronic low back pain. He presents because of feeling faint and about to pass out when he woke up 2:00 in the morning wanted to go to the restroom once he stood up he felt dizzy like about to faint and he went back to his bed, he checked his blood pressure on it was 165/90, associated with nausea. He denies chest pain, no shortness of breath, irritable bowel movements and no urinary complaints. However he has pain in the right shoulder blade that comes and goes for the last 2 days about 3-4/10 in severity like sharp increased by movement and decreased Vicryl for deep inspiration Patient denies cough and or dyspnea as well. Patient saw his membership secretary when day earlier who did Doppler ultrasound of the legs to rule out DVT which was negative. Vitals are stable and patient is afebrile, he has mild leukocytosis at 12.1 Sleeve Wheel Maker evaluated the patient and recommended ultrasound of the gallbladder Patient also found to have some redness in the back of his neck and he was started on Keflex Review of Systems CONSTITUTIONAL: No fever, no malaise, no fatigue. HEENT: No recent visual problems or hearing problems. Denied any sore throat. CARDIOVASCULAR: No orthopnea, PND, no palpitations, no syncope. PULMONARY: No shortness of breath, no cough, no hemoptysis. GASTROINTESTINAL: No diarrhea, no nausea, no vomiting, no abdominal pain. Normoactive bowel sounds. NEUROLOGICAL: No headaches, no weakness, no numbness. HEMATOLOGICAL: Denies any bleeding or petechiae. GENITOURINARY: Denies any burning micturition, frequency, or urgency. MUSCULOSKELETAL/RHEUMATOLOGICAL: Denies any joint pain, swelling, or any muscle pain. ENDOCRINE: Denies any polyuria or polydipsia. Past Medical History Past Medical History: Blood Disorder, Coronary Artery Disease (CAD), Chest Pain / Angina, Diabetes Mellitus, Hyperlipidemia, Myocardial Infarction ([place]), Sleep Apnea/CPAP/BIPAP Additional Past Medical History / Comment(s): ITP Last Myocardial Infarction Date:: 09/06/2019 History of Any Multi-Drug Resistant Organisms: None Reported Past Surgical History: Appendectomy, Coronary Bypass/CABG, Heart Catheterization With Stent Additional Past Surgical History / Comment(s): spleenectomy, sinus surgery, jaw surgery Past Anesthesia/Blood Transfusion Reactions: No Reported Reaction Date of Last Stent Placement:: august of 2019 Past Psychological History: No Psychological Hx Reported Additional Psychological History / Comment(s): Patient does not relate to any psychiatric hospitalizations or psychiatric care. Has been seen by dermatology without evidence of any significant skin disorder that appears that there was referral in the past to psychiatry, patient however has not seen a psychiatrist. Smoking Status: Former smoker Past Alcohol Use History: None Reported Past Drug Use History: None Reported - Past Family History Mother Family Medical History: Congestive Heart Failure (CHF) Father Family Medical History: Myocardial Infarction ([place]) Sister(s) Family Medical History: Coronary Artery Disease (CAD) Additional Family Medical History / Comment(s): Status post coronary artery bypass grafting surgery. Medications and Allergies Home Medications Medication Instructions Recorded Confirmed Type Cholecalciferol [Vitamin D3 (25 1,000 unit PO W/SUPPER 09/06/19 10/09/19 History Mcg = 1000 Iu)] Vitamin B Complex 1 cap PO W/SUPPER 09/06/19 10/09/19 History Acetaminophen Tab [Tylenol] 1,000 mg PO Q6HR PRN tab 09/22/19 10/09/19 Rx Ascorbic Acid [Vitamin C] 500 mg PO BID-W/MEALS tab 09/22/19 10/09/19 Rx Budesonide-Formot 160-4.5 Mcg 2 puff INHALATION RT-BID puff 09/22/19 10/09/19 Rx [Symbicort 160-4.5 Mcg Inhaler] Folic Acid-Vit B Complex-Vit C 1 mg PO W/SUPPER 10/09/19 10/09/19 History [Nephrocaps] Apixaban [Eliquis] 5 mg PO BID #60 tab 10/10/19 Rx Aspirin 81 mg PO DAILY #20 chew 10/10/19 Rx Atorvastatin [Lipitor] 40 mg PO HS #30 tab 10/10/19 Rx Diltiazem Cd [Cardizem CD] 120 mg PO DAILY #30 cap.er.24h 10/10/19 Rx Furosemide [Lasix] 40 mg PO DAILY #30 tablet 10/10/19 Rx Losartan [Cozaar] 25 mg PO DAILY@1200 #30 tab 10/10/19 Rx Metoprolol Tartrate [Lopressor] 50 mg PO BID #60 tab 10/10/19 Rx Pantoprazole [Protonix] 40 mg PO AC-BRKFST #30 tablet.dr 10/10/19 Rx Potassium Chloride ER [K-Dur 10] 10 meq PO DAILY #30 tab.er.prt 10/10/19 Rx Tamsulosin [Flomax] 0.4 mg PO DAILY #30 cap 10/10/19 Rx Tamsulosin [Flomax] 0.4 mg PO DAILY #30 cap.er.24h 10/10/19 Rx metFORMIN HCL 1,000 mg PO BID #60 tab 10/10/19 Rx Allergies Allergy/AdvReac Type Severity Reaction Status Date / Time prednisone Allergy Anaphylaxis Verified 05/14/20 08:36 albuterol AdvReac Unknown Verified 05/14/20 08:36 Physical Exam Vitals: Vital Signs Temp Pulse Pulse Resp BP BP Pulse Ox 05/14/20 06:50 98 F 65 131/74 98 05/14/20 06:00 97.6 F 62 18 110/62 95 05/14/20 05:37 67 18 128/78 98 05/14/20 03:46 97.9 F 75 18 157/80 96 Intake and Output 05/13/20 05/14/20 05/14/20 22:59 06:59 14:59 Other: Weight 111.13 kg -GENERAL: The patient is alert and oriented x3, not in any acute distress. Obese -HEENT: Pupils are round and equally reacting to light. EOMI. No scleral icterus. No conjunctival pallor. Normocephalic, atraumatic. No pharyngeal erythema. No thyromegaly. Redness in the back of neck however no purulent discharge or open wound CARDIOVASCULAR: S1 and S2 present. No murmurs, rubs, or gallops. PULMONARY: Chest is clear to auscultation, no wheezing or crackles. ABDOMEN: Soft, nontender, nondistended, normoactive bowel sounds. No palpable organomegaly. MUSCULOSKELETAL: No joint swelling or deformity. EXTREMITIES: No cyanosis, clubbing, or pedal edema. NEUROLOGICAL: Gross neurological examination did not reveal any focal deficits. SKIN: No rashes. No petechiae Results CBC & Chem 7: 05/14/20 04:13 05/14/20 04:13 Labs: Abnormal Lab Results - Last 24 Hours (Table) 05/14/20 05/14/20 Range/Units 04:13 04:13 WBC 12.1 H (3.8-10.6) k/uL Monocytes # 1.1 H (0-1.0) k/uL Sodium 134 L (137-145) mmol/L Glucose 215 H (74-99) mg/dL Thrombosis Risk Factor Assmnt - Choose All That Apply Each Factor Represents 1 point: Obesity (BMI >25) Each Risk Factor Represents 2 Points: Age 61-74 years Other congenital or acquired thrombophilia - If yes, enter type in comment: Yes (idiopathic thrombosis pulmonary) Thrombosis Risk Factor Assessment Total Risk Factor Score: 3 Thrombosis Risk Factor Assessment Level: Moderate Risk Assessment and Plan Assessment: Presyncope, cardiology will evaluate the patient Right shoulder blade pain, follow-up barrelhead inspector, follow-up gallbladder ultrasound History of coronary artery disease status post 2 vessel bypass surgery Sleep apnea on CPAP/BiPAP Hyperlipidemia Diabetes mellitus Plan: This is a pleasant 69 years old male who presents with presyncope and right shoulder blade pain. Do serial troponins, EKG, cardiology consult. Follow-up results of the gallbladder ultrasound. We'll check TSH and hemoglobin A1c and postural vitals Labs and medication were reviewed.. Continue same treatment. Continue with symptomatic treatment. Resume home medication. Monitor lytes and vitals. DVT and GI prophylaxis. Further recommendations of the clinical course of the patient DVT prophylaxis: On Eliquis GI Prophylaxis: Pepcid PT/OT: Pending Prognosis is guarded
[2020-05-14] MEDS: FUROSEMIDE 40 MG TAB PO SCH ×2 (09:00→09:33)
[2020-05-14] MEDS ORDERED: ONDANSETRON 4 MG/2 ML VIAL IVP PRN (09:15)
[2020-05-14] MEDS: ASPIRIN 81 MG PO SCH (09:32)
[2020-05-14] MEDS: PANTOPRAZOLE 40 MG TABLET PO SCH (09:32)
[2020-05-14] MEDS: metFORMIN 500 MG TAB PO SCH ×2 (09:32→22:18)
[2020-05-14] MEDS: POTASSIUM CHLORIDE ER 10 MEQ TAB.ER.PRT PO SCH (09:32)
[2020-05-14] MEDS: METOPROLOL TARTRATE 50 MG TAB PO SCH ×2 (09:32→22:17)
[2020-05-14] MEDS: TAMSULOSIN 0.4 MG CAP.ER.24H PO SCH (09:33)
[2020-05-14] MEDS: APIXABAN 5 MG TAB PO SCH ×2 (09:33→22:18)
[2020-05-14] MEDS: DILTIAZEM CD 120 MG CAP.ER.24H PO SCH (09:35)
[2020-05-14] MEDS: CEPHALEXIN 500 MG CAP PO SCH ×2 (09:35→16:07)
[2020-05-14] MEDS: SYMBICORT 160-4.5 MCG INHALER INHALATION SCH ×2 (09:38→20:55)
--- NOTE | 2020-05-14 09:41 | P.CRDCN ---
History of Present Illness History of present illness: HISTORY OF PRESENTING ILLNESS This is a pleasant 69-year-old male past medical history significant for or an artery artery disease status post bypass grafting, aortic valve replacement, hypertension, dyslipidemia, paroxysmal atrial fibrillation on long- term anticoagulation and history of ischemic cardiomyopathy with recently improved LV systolic function. He follows in the office with Dr. Post. We have been asked to see in consultation for chest pain. He states for the last few days has been experiencing pain in the right flank region intermittently. Described as a sharp stabbing pain when it occurs. No specific aggravating symptoms. Woke up last night to use the bathroom and felt acutely light headed like was going to pass out. He walked to the bathroom and his symptoms worsened. He states he felt so weak he could not even walk to the bathroom. He then started feeling dizzy like the room was spinning and felt like he was drunk. He couldn't walk straight. He has had an irritation at the base of his left neck for the past few days as well that is red and tender to touch. He feels his left ear is full and he hears crackling at times in his ear. He continues to feel dizzy and nauseated this morning. DIAGNOSTICS EKG reveals sinus mechanism with poor R-wave progression. Chest xray negative for an acute cardiopulmonary process. Laboratory reviewed, WBC 12.1, hemoglobin 15.6, platelets 209, sodium 134, potassium 4.3, creatinine 0.8, magnesium 2.0, cardiac enzymes negative 2. Current cardiac medications include Eliquis 5 mg twice a day, diltiazem 120 mg daily, Lasix 40 mg daily, Lopressor 50 mg twice a day, Aldactone 25 mg at bedtime and multiple vitamins supplements. Most recent echocardiogram obtained in the office February 2020 revealed preserved LV systolic function with ejection fraction 50% with normally functioning bioprosthetic aortic valve. REVIEW OF SYSTEMS At the time of my exam: CONSTITUTIONAL: Denies fever or chills. CARDIOVASCULAR: Denies chest pain, shortness of breath, orthopnea, PND or palpitations. RESPIRATORY: Denies cough. GASTROINTESTINAL: Complains of persistent nausea and vomiting. Denies abdominal pain, diarrhea or constipation. MUSCULOSKELETAL: Denies myalgias. NEUROLOGIC: Denies numbness, tingling or weakness. ENDOCRINE: Denies fatigue, weight change, polydipsia or polyurina. GENITOURINARY: Denies burning, hematuria or urgency with micturation. HEMATOLOGIC: Denies history of anemia or bleeding. PHYSICAL EXAMINATION Blood pressure 145/79 heart rate 62 afebrile and maintaining oxygen saturation on room air. CONSTITUTIONAL: No apparent distress. HEENT: Head is normocephalic. Pupils are equal, round. Sclerae anicteric. Mucous membranes of the mouth are moist. No JVD. No carotid bruit. Posterior base of the neck inflammation, erythemia and tenderness. CHEST EXAMINATION: Lungs are clear to auscultation. No chest wall tenderness is noted on palpation or with deep breathing. HEART EXAMINATION: Regular rate and rhythm. S1, S2 heard. Soft systolic ejection murmur at the base, no gallops or rub. ABDOMEN: Soft, nontender. Positive bowel sounds. EXTREMITIES: 2+ peripheral pulses, no lower extremity edema and no calf tenderness. NEUROLOGIC EXAMINATION: Patient is awake, alert and oriented x3. ASSESSMENT Flank pain, nausea and vomiting. An acute coronary event has been ruled out. Dizziness suggestive of vertigo Neck rash with cellulitis type appearance History of coronary artery disease status post bypass grafting Valvular heart disease s/p aortic valve replacement Hypertension Dyslipidemia Paroxysmal atrial fibrillation on long-term anticoagulation History of ischemic cardiomyopathy with recently improved LV systolic function PLAN An acute coronary event has been ruled out. Obtain ultrasound of the gallbladder. Medical management and evaluation of the rash at the base of his neck and assoc iated ear discomfort. Consider ID evaluation. No further cardiac work-up at this time. Follow up with Dr. Post upon discharge. Thank you kindly for this consultation. Nurse Practitioner note has been reviewed, I agree with a documented findings and plan of care. Patient was seen and examined. 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 Has been seen by dermatology without evidence of any significant skin disorder that appears that there was referral in the past to psychiatry, patient however has not seen a psychiatrist. Smoking Status: Former smoker Past Alcohol Use History: None Reported Past Drug Use History: None Reported - Past Family History Mother Family Medical History: Congestive Heart Failure (CHF) Father Family Medical History: Myocardial Infarction ([place]) Sister(s) Family Medical History: Coronary Artery Disease (CAD) Additional Family Medical History / Comment(s): Status post coronary artery bypass grafting surgery. Medications and Allergies Home Medications Medication Instructions Recorded Confirmed Type Apixaban [Eliquis] 5 mg PO BID #60 tab 10/10/19 05/14/20 Rx Diltiazem Cd [Cardizem CD] 120 mg PO DAILY #30 cap.er.24h 10/10/19 05/14/20 Rx Furosemide [Lasix] 40 mg PO DAILY #30 tablet 10/10/19 05/14/20 Rx Metoprolol Tartrate [Lopressor] 50 mg PO BID #60 tab 10/10/19 05/14/20 Rx metFORMIN HCL 1,000 mg PO BID #60 tab 10/10/19 05/14/20 Rx Ascorbic Acid [Vitamin C] 1,000 mg PO DAILY 05/14/20 05/14/20 History Ashwagandha 1 tab PO BID 05/14/20 05/14/20 History Astragalus 1 tab PO BID 05/14/20 05/14/20 History Cholecalciferol (Vitamin D3) 125 mcg PO DAILY 05/14/20 05/14/20 History [Vitamin D3] Chromium Picolinate(Unknown Dose) 1 tab PO DAILY 05/14/20 05/14/20 History De-Ribbed Lien Powder 1 scoop PO BID 05/14/20 05/14/20 History Egg Protein Powder 1 scoop PO DAILY 05/14/20 05/14/20 History Fish Oil/Dha/Epa [Fish Oil 1,200 1 cap PO TID 05/14/20 05/14/20 History mg Fish Oil] Ginseng W/[place] Jelly 2 tab PO DAILY 05/14/20 05/14/20 History Ip-6 Inositol 3 tab PO BID 05/14/20 05/14/20 History L-Carnitine(Unknown Dose) 2 tab PO BID 05/14/20 05/14/20 History Lutein 20 mg PO DAILY 05/14/20 05/14/20 History Milk Thistle(Unknown Dose) 1 tab PO BID 05/14/20 05/14/20 History [place] Extract 1 tab PO DAILY 05/14/20 05/14/20 History [place] Honey Jelly 1 tsp PO DAILY 05/14/20 05/14/20 History Selenium(Unknown Dose) 1 tab PO DAILY 05/14/20 05/14/20 History Spironolactone 25 mg PO HS 05/14/20 05/14/20 History [place] Lecithin Powder 1 scoop PO DAILY 05/14/20 05/14/20 History Turmeric Root Extract [Turmeric] 500 mg PO BID PRN 05/14/20 05/14/20 History Ubidecarenone [Co Q-10] 100 mg PO BID 05/14/20 05/14/20 History Vitamin D3 W/Iodine 1 tab PO DAILY 05/14/20 05/14/20 History Vitamin K(Unknown Dose) 1 tab PO DAILY 05/14/20 05/14/20 History Zinc 50 mg PO DAILY 05/14/20 05/14/20 History Allergies Allergy/AdvReac Type Severity Reaction Status Date / Time prednisone Allergy Anaphylaxis Verified 05/14/20 08:36 albuterol AdvReac Unknown Verified 05/14/20 08:36 Physical Exam Vitals: Vital Signs Temp Pulse Pulse Resp BP BP Pulse Ox 05/14/20 06:50 98 F 65 131/74 98 05/14/20 06:00 97.6 F 62 18 110/62 95 05/14/20 05:37 67 18 128/78 98 05/14/20 03:46 97.9 F 75 18 157/80 96 Intake and Output 05/13/20 05/14/20 05/14/20 22:59 06:59 14:59 Other: Weight 111.13 kg Results 05/14/20 04:13 05/14/20 04:13 Cardiac Enzymes 05/14/20 05/14/20 Range/Units 04:13 04:13 AST 34 (17-59) U/L Troponin I <0.012 (0.000-0.034) ng/mL Coagulation 05/14/20 Range/Units 04:13 PT 9.3 (9.0-12.0) sec APTT 23.6 (22.0-30.0) sec CBC 05/14/20 Range/Units 04:13 WBC 12.1 H (3.8-10.6) k/uL RBC 5.26 (4.30-5.90) m/uL Hgb 15.6 (13.0-17.5) gm/dL Hct 48.8 (39.0-53.0) % Plt Count 209 (150-450) k/uL Comprehensive Metabolic Panel 05/14/20 Range/Units 04:13 Sodium 134 L (137-145) mmol/L Potassium 4.3 (3.5-5.1) mmol/L Chloride 98 (98-107) mmol/L Carbon Dioxide 26 (22-30) mmol/L BUN 20 (9-20) mg/dL Creatinine 0.80 (0.66-1.25) mg/dL Glucose 215 H (74-99) mg/dL Calcium 9.6 (8.4-10.2) mg/dL AST 34 (17-59) U/L ALT 21 (4-49) U/L Alkaline Phosphatase 95 (38-126) U/L Total Protein 7.7 (6.3-8.2) g/dL Albumin 4.4 (3.5-5.0) g/dL Current Medications Generic Name Dose Route Start Last Admin Trade Name Freq PRN Reason Stop Dose Admin Acetaminophen 1,000 mg 05/14/20 12:00 Tylenol Tab PO Q6HR PRN Fever and/ or MILD Pain Apixaban 5 mg 05/14/20 09:00 Eliquis PO BID [facility] Aspirin 81 mg 05/14/20 09:00 Aspirin PO DAILY [facility] Atorvastatin Calcium 40 mg 05/14/20 21:00 Lipitor PO HS [facility] Budesonide/Formoterol Fumarate 2 puff 05/14/20 08:00 Symbicort 160-4.5 Mcg Inhaler INHALATION RT-BID [facility] Cephalexin 500 mg 05/14/20 09:00 Keflex PO QID [facility] Cholecalciferol 1,000 unit 05/14/20 17:30 Vitamin D3 (25 Mcg = 1000 Iu) PO W/SUPPER [facility] Diltiazem HCl 120 mg 05/14/20 09:00 Cardizem Cd PO DAILY [facility] Furosemide 40 mg 05/14/20 09:00 Lasix PO DAILY [facility] Losartan Potassium 25 mg 05/14/20 12:00 Cozaar PO DAILY@1200 [facility] Metformin HCl 1,000 mg 05/14/20 09:00 Glucophage PO BID [facility] Metoprolol Tartrate 50 mg 05/14/20 09:00 Lopressor PO BID [facility] Multivit/Ca Carb/B Cmplx/FA/Prenat 1 each 05/14/20 17:30 Nephrocaps PO W/SUPPER [facility] Nitroglycerin 0.4 mg 05/14/20 05:51 Nitrostat SUBLINGUAL Q5M PRN Chest Pain Pantoprazole Sodium 40 mg 05/14/20 07:30 Protonix PO AC-BRKFST [facility] Potassium Chloride 10 meq 05/14/20 09:00 K-Dur 10 PO DAILY [facility] Tamsulosin HCl 0.4 mg 05/14/20 09:00 Flomax PO DAILY [facility] Intake and Output 05/13/20 05/14/20 05/14/20 22:59 06:59 14:59 Other: Weight 111.13 kg 05/14/20 04:13 05/14/20 04:13
--- NOTE | 2020-05-14 10:01 | US ---
EXAMINATION TYPE: US gallbladder DATE OF EXAM: 05/14/2020 COMPARISON: Correlation CT 10/05/2019 CLINICAL HISTORY: 69 year-old male abdominal pain and nausea. TECHNIQUE: Multiple sonographic images of the right upper quadrant are obtained. FINDINGS: EXAM MEASUREMENTS: Liver Length: 15.8 cm Gallbladder Wall: 0.3 cm CBD: 0.4 cm Right Kidney: 12.3 x 5.3 x 5.5 cm RADIUS GRINDER NOTES: Technically difficult study due to overlying bowel gas. Pancreas: Only a small portion of the pancreatic neck is visualized and shows no gross abnormality. The remainder is obscured by bowel gas. Liver: Visualized portions show no gross abnormality. Gallbladder: No stones seen. No abnormal distention, wall thickening, or surrounding fluid. Evidence for sonographic Chao's sign: No CBD: wnl Right Kidney: 2.4 x 2.2 cm cyst . No hydronephrosis. IMPRESSION: No gallstones or biliary ductal dilatation. A benign 2.4 cm right renal cyst.
[2020-05-14] MEDS ORDERED: ACETAMINOPHEN TAB 500 MG TAB PO PRN (12:00)
[2020-05-14 12:03] LABS: Glucose,Whole Blood 230 mg/dL (75-99)
[2020-05-14 12:43] LABS: HCT 48.4 % (39.0-53.0); HGB 15.6 gm/dL (13.0-17.5); MCHC 32.2 g/dL (31.0-37.0); MCV 93.3 fL (80.0-100.0); Mean Platelet Volume 10.4; Platelet Count 216 k/uL (150-450); RBC 5.19 m/uL (4.30-5.90); RDW 13.7 % (11.5-15.5); WBC 11.8 k/uL (3.8-10.6)
[2020-05-14] MEDS: LOSARTAN 25 MG TAB PO SCH (13:52)
[2020-05-14 14:08] LABS: Appearance,Urine Clear (Clear); Bilirubin,Urine Negative (Negative); Blood,Urine Negative (Negative); Color,Urine Yellow; Glucose,Urine (UA) 3+ (Negative); Ketones,Urine Negative (Negative); Leukocyte Esterase,Urine Negative (Negative); Nitrite,Urine Negative (Negative); PH, Urine 5.5 (5.0-8.0); Protein,Urine Negative (Negative); Specific Gravity,Urine 1.015 (1.001-1.035); Urobilinogen,Urine <2.0 mg/dL (<2.0)
[2020-05-14] MEDS: MECLIZINE 12.5 MG TAB PO PRN (16:04)
[2020-05-14] MEDS ORDERED: SODIUM CHLORIDE 0.9% 1,000 ML IV SCH (16:15)
[2020-05-14] MEDS: SODIUM CHLORIDE 0.9% 1,000 ML IV SCH (16:15)
[2020-05-14] MEDS ORDERED: FOLIC ACID-VIT B COMPLEX-VIT C 1 CAP PO SCH ×2 (17:30)
[2020-05-14] MEDS ORDERED: CHOLECALCIFEROL 1,000 UNIT TAB PO SCH (17:30)
[2020-05-14 18:50] LABS: Hemoglobin A1C 8.4 % (4.0-6.0)
[2020-05-14] MEDS: ATORVASTATIN 40 MG TAB PO SCH ×2 (22:17→22:23)
[2020-05-15] MEDS: CEPHALEXIN 500 MG CAP PO SCH ×4 (02:03→13:28)
[2020-05-15] MEDS: PANTOPRAZOLE 40 MG TABLET PO SCH (06:25)
[2020-05-15] MEDS: SODIUM CHLORIDE 0.9% 1,000 ML IV SCH (06:25)
[2020-05-15 06:53] LABS: Basophils # (A) 0.1 k/uL (0-0.2); Basophils % (A) 1 %; Eosinophils # (A) 0.4 k/uL (0-0.7); Eosinophils % (A) 4 %; HCT 44.7 % (39.0-53.0); HGB 14.3 gm/dL (13.0-17.5); Lymphocytes # (A) 2.7 k/uL (1.0-4.8); Lymphocytes % (A) 25 %; MCH 30.2 pg (25.0-35.0); MCV 94.4 fL (80.0-100.0); Mean Platelet Volume 8.9; Monocytes # (A) 0.8 k/uL (0-1.0); Monocytes % (A) 8 %; Neutrophils # (A) 6.6 k/uL (1.3-7.7); Neutrophils % (A) 60 %; Platelet Count 188 k/uL (150-450); RBC 4.74 m/uL (4.30-5.90); RDW 13.7 % (11.5-15.5); WBC 10.9 k/uL (3.8-10.6)
[2020-05-15 07:12] LABS: Cholesterol 252 mg/dL (<200); HDL Cholesterol 63 mg/dL (40-60); LDL Cholesterol,Calculated 139 mg/dL (0-99); Triglycerides 248 mg/dL (<150)
[2020-05-15 07:58] VITALS: BP 107/55; PULSE 70; RESP 16; TEMP 97.7
[2020-05-15] MEDS: METOPROLOL TARTRATE 50 MG TAB PO SCH (07:59)
[2020-05-15] MEDS: DILTIAZEM CD 120 MG CAP.ER.24H PO SCH (07:59)
[2020-05-15] MEDS: APIXABAN 5 MG TAB PO SCH (07:59)
[2020-05-15] MEDS: metFORMIN 500 MG TAB PO SCH (07:59)
[2020-05-15] MEDS: FUROSEMIDE 40 MG TAB PO SCH (07:59)
[2020-05-15] MEDS: TAMSULOSIN 0.4 MG CAP.ER.24H PO SCH (07:59)
[2020-05-15] MEDS: ASPIRIN 81 MG PO SCH (07:59)
[2020-05-15] MEDS ORDERED: ASPIRIN 325 MG TAB PO SCH (09:00)
[2020-05-15] MEDS: MECLIZINE 12.5 MG TAB PO PRN (10:02)
[2020-05-15] MEDS: SYMBICORT 160-4.5 MCG INHALER INHALATION SCH (10:45)
[2020-05-15] MEDS: POTASSIUM CHLORIDE ER 10 MEQ TAB.ER.PRT PO SCH (10:58)
[2020-05-15] MEDS: LOSARTAN 25 MG TAB PO SCH (10:59)
[2020-05-15] MEDS ORDERED: NYSTAT-TRIAMCIN 100,000-0.1 UNIT/GM-% CREAM 30 GM TUBE TOPICAL SCH (12:45)
[2020-05-15] MEDS ORDERED: NYSTATIN 100,000UNIT/GM CREAM 30 GM TUBE TOPICAL SCH (13:00)
[2020-05-15] MEDS ORDERED: TRIAMCINOLONE 0.1% CREAM 80 GM TUBE TOPICAL SCH (13:00)
--- NOTE | 2020-05-15 13:44 | CONS ---
CONSULTATION DATE OF SERVICE: 05/15/2020 REASON FOR CONSULTATION: Posterior neck cellulitis. HISTORY OF PRESENT ILLNESS: The patient is a 69-year-old male presented to [facility] ER yesterday morning with chief complaints of chest discomfort, lightheadedness and some nausea. The patient's symptoms started the night before he presented to the hospital. The patient was trying to sleep. Described the pain to be more of a stabbing in nature. No nausea, no vomiting. No abdominal pain or any diarrhea. No fever. With these symptoms, the patient was evaluated by the ER physician. On arrival to the ER, the patient has been afebrile. The patient did have mild elevated white count of 11.8. UA was negative. Liver enzymes are normal. Urine was negative. The patient did have a chest x-ray that was negative. Ultrasound of the gallbladder was negative as well. The patient is being worked up by Cardiology for his chest pain. The patient was noticed to have erythematous rash to the posterior neck area for which the patient was started on Keflex and I was asked to see the patient regarding further recommendations, possible cellulitis and antibiotic. The patient mentioned he had this rash for almost a year now. He is not sure how it started. Previously and currently being following with Dermatology and has applied different types of local cream. However, the patient is not sure about the name, without any significant improvement. The patient did have mild burning pain to the posterior neck area, intensity 2 to 3/10 and no radiation. Currently with no open wound or any drainage. REVIEW OF SYSTEMS: Positive points have been mentioned in HPI. Other systems are negative. PAST MEDICAL HISTORY: Coronary artery disease and diabetes mellitus, hyperlipidemia, sleep apnea. PAST SURGICAL HISTORY: Appendectomy, coronary bypass grafting, PTCA with stent, splenectomy, and sinus surgery. SOCIAL HISTORY: No history of smoking, drinking or drug use. FAMILY HISTORY: Mother with history of congestive heart failure. Father with history of MA. ALLERGIES: TO PREDNISONE AND ALBUTEROL. MEDICATIONS: The patient is currently on Tylenol, Eliquis, aspirin, Lipitor, Symbicort, cephalexin 500 q.i.d., Cardizem, Lasix, Cozaar, Antivert, Glucophage, Lopressor, Nephrocaps, Nitrostat, and Flomax. PHYSICAL EXAMINATION: Blood pressure is 107/55 with a pulse of 70. Temperature is 97.7. He is 98% on 2 L nasal cannula. General description is an elderly male up in the bed in no distress. No tachypnea or accessory muscles of respiration use. HEENT: Examination shows no pallor or scleral icterus. Oral mucosa membranes dry. NECK: Trachea central. No thyromegaly. LUNGS: Unlabored breathing. Clear to auscultation with no wheeze or crackles. HEART S1, S2. Regular rate and rhythm. ABDOMEN: Soft, no tenderness. No guarding or rigidity. EXTREMITIES: No edema of the feet. Examination of the posterior neck: Area of erythema. Minimal warmth. No open area. No induration. No drainage. LABS: Hemoglobin 14.8, white count 10.2, admission white count was 12.1, BUN of 20, creatinine 0.80. Liver enzymes have been normal. DIAGNOSTIC IMPRESSION AND PLAN: Patient with a posterior neck cellulitis rash which has been there for a long time with question of possible dermatitis. Underlying cellulitis less likely but not entirely excluded. In view of the patient clinical response to oral Keflex, possibly from a gram-positive skin tessie such as strep as his white count has improved. PLAN: 1. Keflex 500 mg p.o. q.6 hours for 10 days. 2. We will apply Mycolog cream to the area daily and see clinical response. 3. Patient to follow up in the office in a week if no improvement. Thank you for this consultation. MMODL / IJN: [id number] /
--- NOTE | 2020-05-16 02:20 | P.DS ---
Providers Date of admission: 05/14/20 05:52 Attending physician: Nisa Chapa Consults: 05/14/20 05:52 Consult Physician Routine Consulting Provider: Liv Tamayo Consult Reason/Comments: chest pain Do you want consulting provider notified?: Yes 05/14/20 19:58 Consult Physician Urgent Consulting Provider: Virginia Troncoso Consult Reason/Comments: Cellulitis the back of the neck Do you want consulting provider notified?: Yes Primary care physician: Timo Mayorga Hospital Course: Date of service 05/15/2020 Diagnoses: Presyncope, cardiology evaluated the patient and cleared him for discharge. His dizziness is significantly improved Right shoulder blade pain, improved, gallbladder ultrasound was negative History of coronary artery disease status post 2 vessel bypass surgery Sleep apnea on CPAP/BiPAP Hyperlipidemia Diabetes mellitus Hospital course: This is a pleasant 69 years old male with past medical history of hypertension, coronary artery disease status post 2 vessel bypass surgery, sleep apnea on CPAP/BiPAP, hyperlipidemia, diabetes mellitus. He is a patient of Dr. Mayorga, he follows with machine operator helper Dr. Anderson and sees neurologist Dr. Ross for his herniated disc and chronic low back pain. He presents because of presyncope , rather than vertigo. Evaluated by machine operator helper and recommended no further cardiac workup. Patient dizziness improved and he felt he can go home. No other complaints. Infectious disease evaluate the patient for a rash in the back of his neck, being diabetic he was prescribed Keflex with recommendation to follow up outpatient History of the pain is also improved prior to discharge, patient felt his back to his baseline. He denies any abdominal complaints, no change in his urine or bowel habits. No fever Patient was cleared for discharge by adjuvant cardiology team Problems and management plan were discussed with the patient and he verbalized understanding and acceptance Patient was found stable and can be discharged home however he needs follow-up as an outpatient. Patient was instructed to follow up with PCP Dr. Mayorga within one week and patient agrees. Patient agrees with the appointments made for him with Dr. Mayorga on 05/[address] Anderson on 05/31 Gen: patient is a AAOx3, no distress CVS: S1-S2, RRR, no murmur Lungs: B/L CTA, no wheezing Abdomen: soft, no distention, no tenderness, positive bowel sounds Extremity: no leg edema or induration Time spent more than 35 minutes Plan - Discharge Summary Discharge Rx Participant: Yes New Discharge Prescriptions: New Meclizine [Antivert] 12.5 mg PO BID PRN #10 tab PRN Reason: Vertigo Aspirin 81 mg PO DAILY #30 chew Losartan [Cozaar] 25 mg PO DAILY@1200 #30 tab Cephalexin [Keflex] 500 mg PO QID #21 cap Atorvastatin [Lipitor] 40 mg PO HS #30 tab Nystatin 100,000Unit/gm Cream [Mycostatin Cream] 1 applic TOPICAL DAILY #1 applic Nitroglycerin Sl Tabs [Nitrostat] 0.4 mg SUBLINGUAL Q5M PRN #20 tab PRN Reason: Chest Pain Continue Metoprolol Tartrate [Lopressor] 50 mg PO BID #60 tab Apixaban [Eliquis] 5 mg PO BID #60 tab Diltiazem Cd [Cardizem CD] 120 mg PO DAILY #30 cap.er.24h Furosemide [Lasix] 40 mg PO DAILY #30 tablet metFORMIN HCL 1,000 mg PO BID #60 tab Vitamin K(Unknown Dose) 1 tab PO DAILY Chromium Picolinate(Unknown Dose) 1 tab PO DAILY Zinc 50 mg PO DAILY Selenium(Unknown Dose) 1 tab PO DAILY Ennice Honey Jelly 1 tsp PO DAILY Milk Thistle(Unknown Dose) 1 tab PO BID Lutein 20 mg PO DAILY Egg Protein Powder 1 scoop PO DAILY Ascorbic Acid [Vitamin C] 1,000 mg PO DAILY Vitamin D3 W/Iodine 1 tab PO DAILY L-Carnitine(Unknown Dose) 2 tab PO BID Fish Oil/Dha/Epa [Fish Oil 1,200 mg Fish Oil] 1 cap PO TID Cholecalciferol (Vitamin D3) [Vitamin D3] 125 mcg PO DAILY Ubidecarenone [Co Q-10] 100 mg PO BID [place] Lecithin Powder 1 scoop PO DAILY [place] Chisana Extract 1 tab PO DAILY Ginseng W/Ennice Jelly 2 tab PO DAILY De-Ribbed Lien Powder 1 scoop PO BID Turmeric Root Extract [Turmeric] 500 mg PO BID PRN PRN Reason: Inflammation Astragalus 1 tab PO BID Spironolactone 25 mg PO HS Ip-6 Inositol 3 tab PO BID Ashwagandha 1 tab PO BID Discharge Medication List Apixaban [Eliquis] 5 mg PO BID #60 tab 10/10/19 [Rx] Diltiazem Cd [Cardizem CD] 120 mg PO DAILY #30 cap.er.24h 10/10/19 [Rx] Furosemide [Lasix] 40 mg PO DAILY #30 tablet 10/10/19 [Rx] Metoprolol Tartrate [Lopressor] 50 mg PO BID #60 tab 10/10/19 [Rx] metFORMIN HCL 1,000 mg PO BID #60 tab 10/10/19 [Rx] Ascorbic Acid [Vitamin C] 1,000 mg PO DAILY 05/14/20 [History] Ashwagandha 1 tab PO BID 05/14/20 [History] Astragalus 1 tab PO BID 05/14/20 [History] Cholecalciferol (Vitamin D3) [Vitamin D3] 125 mcg PO DAILY 05/14/20 [History] Chromium Picolinate(Unknown Dose) 1 tab PO DAILY 05/14/20 [History] De-Ribbed Lien Powder 1 scoop PO BID 05/14/20 [History] Egg Protein Powder 1 scoop PO DAILY 05/14/20 [History] Fish Oil/Dha/Epa [Fish Oil 1,200 mg Fish Oil] 1 cap PO TID 05/14/20 [History] Ginseng W/Ennice Jelly 2 tab PO DAILY 05/14/20 [History] Ip-6 Inositol 3 tab PO BID 05/14/20 [History] L-Carnitine(Unknown Dose) 2 tab PO BID 05/14/20 [History] Lutein 20 mg PO DAILY 05/14/20 [History] Milk Thistle(Unknown Dose) 1 tab PO BID 05/14/20 [History] [place] Chisana Extract 1 tab PO DAILY 05/14/20 [History] Ennice Honey Jelly 1 tsp PO DAILY 05/14/20 [History] Selenium(Unknown Dose) 1 tab PO DAILY 05/14/20 [History] Spironolactone 25 mg PO HS 05/14/20 [History] [place] Lecithin Powder 1 scoop PO DAILY 05/14/20 [History] Turmeric Root Extract [Turmeric] 500 mg PO BID PRN 05/14/20 [History] Ubidecarenone [Co Q-10] 100 mg PO BID 05/14/20 [History] Vitamin D3 W/Iodine 1 tab PO DAILY 07/24/20 [History] Vitamin K(Unknown Dose) 1 tab PO DAILY 05/14/20 [History] Zinc 50 mg PO DAILY 05/14/20 [History] Aspirin 81 mg PO DAILY #30 chew 05/15/20 [Rx] Atorvastatin [Lipitor] 40 mg PO HS #30 tab 05/15/20 [Rx] Cephalexin [Keflex] 500 mg PO QID #21 cap 05/15/20 [Rx] Losartan [Cozaar] 25 mg PO DAILY@1200 #30 tab 05/15/20 [Rx] Meclizine [Antivert] 12.5 mg PO BID PRN #10 tab 05/15/20 [Rx] Nitroglycerin Sl Tabs [Nitrostat] 0.4 mg SUBLINGUAL Q5M PRN #20 tab 05/15/20 [Rx] Nystatin 100,000Unit/gm Cream [Mycostatin Cream] 1 applic TOPICAL DAILY #1 applic 05/15/20 [Rx] Follow up Appointment(s)/Referral(s): Chaitanya Post MD [STAFF PHYSICIAN] - 05/31/20 3:45 pm (With CERTIFIED MEDICAL AIDE) Timo Mayorga III, MD [Primary Care Provider] - 05/21/20 1:30 pm Patient Instructions/Handouts: Chest Pain (DC), Vertigo (DC), Acute Nausea and Vomiting (DC) Discharge Disposition: HOME SELF-CARE
== END 2020-05-15 15:38 | disposition home or self-care (01) ==
LOC: EC 03:43 → 3NCARDOBS 05:52
PROVIDERS: ADMIT Hospitalist; ATTEND Hospitalist
DX: R55 Syncope and collapse (principal); R07.89 Other chest pain; I25.10 Atherosclerotic heart disease of native coronary artery without angina pectoris; I10 Essential (primary) hypertension; Z95.1 Presence of aortocoronary bypass graft; G47.30 Sleep apnea, unspecified; Z99.89 Dependence on other enabling machines and devices; E78.5 Hyperlipidemia, unspecified; E11.9 Type 2 diabetes mellitus without complications; Z87.891 Personal history of nicotine dependence; G89.29 Other chronic pain; M54.5 Low back pain; R21 Rash and other nonspecific skin eruption; I25.2 Old myocardial infarction; D69.3 Immune thrombocytopenic purpura; Z95.5 Presence of coronary angioplasty implant and graft; Z90.81 Acquired absence of spleen; Z98.890 Other specified postprocedural states; Z82.49 Family history of ischemic heart disease and other diseases of the circulatory system; L01.00 Impetigo, unspecified; Z95.2 Presence of prosthetic heart valve; I48.0 Paroxysmal atrial fibrillation; Z79.01 Long term (current) use of anticoagulants; Z79.84 Long term (current) use of oral hypoglycemic drugs; Z79.51 Long term (current) use of inhaled steroids; Z79.82 Long term (current) use of aspirin; Z79.899 Other long term (current) drug therapy; Z88.8 Allergy status to other drugs, medicaments and biological substances
CPT/HCPCS: 93005 ×2; 96376; 96374; 99285; 36415; 80061; 80053; 84443; 83735; 84484; 85025 ×2; 85027; 85610; 85730; 81003; 83036; 71046; 76705; G0378 ×2; U0003; J2405

== ENCOUNTER 2020-07-12 16:39 | Observation (INO) | payer MEDICARE ==
--- NOTE | 2020-07-12 17:31 | ED ---
SOB HPI - General Chief Complaint: Shortness of Breath Stated Complaint: abnormal EKG Time Seen by Provider: 07/12/20 16:40 Source: patient Mode of arrival: wheelchair Limitations: no limitations - History of Present Illness Initial Comments: 70-year-old male with past medical history of coronary disease, diabetes, hypertension who presents to the emergency department with reported left-sided chest pain, left upper arm tingling and shortness of breath. Patient was seen and Dr. Mayorga's office today. He does have a history of CABG and aortic valve replacement. Dr. Mayorga thought that the patient was conversational dyspneic in the office. He also stated that he was short of breath when laying down and had gained 11 pounds in the past month. He recommended that the patient come to the emergency department for evaluation of possible congestive heart failure. Patient reports to lightheadedness which has been chronic for him. He has a history of vertigo and states that he has taken multiple tablets of his "vertigo medication" however cannot name to me what these are. States his photo tube assembler is Dr. Anderson. Denies ripping or tearing sensation to his back. No fevers or chills. Denies cough. No vision changes. No other alleviating, precipitating or modifying factors - Related Data Home Medications Medication Instructions Recorded Confirmed Ascorbic Acid [Vitamin C] 1,000 mg PO DAILY 05/14/20 07/12/20 Ashwagandha 1 tab PO BID 05/14/20 07/12/20 Astragalus 1 tab PO BID 05/14/20 07/12/20 Cholecalciferol (Vitamin D3) 125 mcg PO DAILY 05/14/20 07/12/20 [Vitamin D3] Chromium Picolinate(Unknown Dose) 1 tab PO DAILY 05/14/20 07/12/20 De-Ribbed Lien Powder 1 scoop PO BID 05/14/20 07/12/20 Egg Protein Powder 1 scoop PO DAILY 05/14/20 07/12/20 Fish Oil/Dha/Epa [Fish Oil 1,200 1 cap PO TID 05/14/20 07/12/20 mg Fish Oil] Ip-6 Inositol 3 tab PO BID 05/14/20 07/12/20 L-Carnitine(Unknown Dose) 2 tab PO BID 05/14/20 07/12/20 Lutein 20 mg PO DAILY 05/14/20 07/12/20 Selenium(Unknown Dose) 1 tab PO DAILY 05/14/20 07/12/20 Spironolactone 25 mg PO HS 05/14/20 07/12/20 [place] Lecithin Powder 1 scoop PO DAILY 05/14/20 07/12/20 Turmeric Root Extract [Turmeric] 500 mg PO BID PRN 05/14/20 07/12/20 Ubidecarenone [Co Q-10] 100 mg PO BID 05/14/20 07/12/20 Zinc 50 mg PO DAILY 05/14/20 07/12/20 Avocado Oil 1 tsp PO BID 07/12/20 07/12/20 Black Seed Oil 1 tsp PO BID 07/12/20 07/12/20 Meclizine [Antivert] 25 mg PO BID PRN 07/12/20 07/12/20 Milk Thistle 1000mg 1 cap PO BID 07/12/20 07/12/20 Rutin/Quercetin/Bioflav/Bilber 1 cap PO BID 07/12/20 07/12/20 [Bilberry Extract] Previous Rx's Medication Instructions Recorded Apixaban [Eliquis] 5 mg PO BID #60 tab 10/10/19 Diltiazem Cd [Cardizem CD] 120 mg PO DAILY #30 cap.er.24h 10/10/19 Furosemide [Lasix] 40 mg PO DAILY #30 tablet 10/10/19 Metoprolol Tartrate [Lopressor] 50 mg PO BID #60 tab 10/10/19 metFORMIN HCL 1,000 mg PO BID #60 tab 10/10/19 Allergies Allergy/AdvReac Type Severity Reaction Status Date / Time prednisone Allergy Anaphylaxis Verified 07/12/20 20:15 albuterol AdvReac Unknown Verified 07/12/20 20:15 Review of Systems ROS Statement: Those systems with pertinent positive or pertinent negative responses have been documented in the HPI. ROS Other: All systems not noted in ROS Statement are negative. Past Medical History Past Medical History: Blood Disorder, Coronary Artery Disease (CAD), Chest Pain / Angina, Diabetes Mellitus, Hyperlipidemia, Myocardial Infarction ([place]), Sleep Apnea/CPAP/BIPAP Additional Past Medical History / Comment(s): ITP Last Myocardial Infarction Date:: 09/06/2019 History of Any Multi-Drug Resistant Organisms: None Reported Past Surgical History: Appendectomy, Coronary Bypass/CABG, Heart Catheterization With Stent Additional Past Surgical History / Comment(s): spleenectomy, sinus surgery, jaw surgery Past Anesthesia/Blood Transfusion Reactions: No Reported Reaction Date of Last Stent Placement:: august of 2019 Past Psychological History: No Psychological Hx Reported Smoking Status: Never smoker Past Alcohol Use History: None Reported Past Drug Use History: None Reported - Past Family History Mother Family Medical History: Congestive Heart Failure (CHF) Father Family Medical History: Myocardial Infarction ([place]) Sister(s) Family Medical History: Coronary Artery Disease (CAD) Additional Family Medical History / Comment(s): Status post coronary artery bypass grafting surgery. General Exam Limitations: no limitations General appearance: alert, in no apparent distress Head exam: Present: atraumatic, normocephalic, normal inspection Eye exam: Present: normal appearance, PERRL, EOMI. Absent: scleral icterus, conjunctival injection, periorbital swelling ENT exam: Present: normal exam, mucous membranes moist Neck exam: Present: normal inspection. Absent: tenderness, meningismus, lymphadenopathy Respiratory exam: Present: normal lung sounds bilaterally. Absent: respiratory distress, wheezes, rales, rhonchi, stridor Cardiovascular Exam: Present: regular rate, normal rhythm, normal heart sounds. Absent: systolic murmur, diastolic murmur, rubs, gallop, clicks GI/Abdominal exam: Present: soft, normal bowel sounds. Absent: distended, tenderness, guarding, rebound, rigid Extremities exam: Present: full ROM, normal capillary refill, pedal edema. Absent: tenderness, joint swelling, calf tenderness Back exam: Present: normal inspection Neurological exam: Present: alert, oriented X3, CN II-XII intact Psychiatric exam: Present: normal affect, normal mood Skin exam: Present: warm, dry, intact, normal color. Absent: rash Course Vital Signs 07/12/20 07/12/20 07/12/20 16:40 18:32 19:53 Temperature 97.6 F Pulse Rate 74 75 Respiratory 18 18 16 Rate Blood Pressure 125/70 128/73 O2 Sat by Pulse 95 96 Oximetry Medical Decision Making - Medical Decision Making Upon arrival the patient was placed into room 9. A thorough history and physical exam was performed. The patient is hooked up to continuous pulse ox and cardiac monitoring. He does have notable periods of bradycardia down to the 40s. Patient associates his dizziness when his heart rate is low. A 12-lead EKG is performed. No signs of high degree block. Peripheral IV is established. Laboratory studies were conducted. Lactic acid elevated at 2.1. Troponin less than 0.012. BNP is 74. Chest x-ray demonstrates no active court-appointed disease. Patient does not appear to have an exacerbation of congestive heart failure at this time however I'm concerned about the patient's bradycardia causing his dizziness. I did recommend hospital admission for cardiology consultation. Patient agreed to this. Called and discussed the case with Dr. Wilde who accepted admission. Patient remained in stable condition and was transported to floor - Lab Data Result diagrams: 07/13/20 07:28 07/13/20 07:28 Lab Results 07/12/20 07/12/20 07/12/20 Range/Units 17:22 17:22 17:22 WBC 10.5 (3.8-10.6) k/uL RBC 5.23 (4.30-5.90) m/uL Hgb 15.7 (13.0-17.5) gm/dL Hct 48.8 (39.0-53.0) % MCV 93.4 (80.0-100.0) fL MCH 30.0 (25.0-35.0) pg MCHC 32.2 (31.0-37.0) g/dL RDW 13.6 (11.5-15.5) % Plt Count 211 (150-450) k/uL Neutrophils % 58 % Lymphocytes % 28 % Monocytes % 8 % Eosinophils % 3 % Basophils % 1 % Neutrophils # 6.1 (1.3-7.7) k/uL Lymphocytes # 3.0 (1.0-4.8) k/uL Monocytes # 0.8 (0-1.0) k/uL Eosinophils # 0.4 (0-0.7) k/uL Basophils # 0.1 (0-0.2) k/uL PT 9.4 (9.0-12.0) sec INR 0.9 (<1.2) APTT 24.1 (22.0-30.0) sec Sodium 138 (137-145) mmol/L Potassium 4.5 (3.5-5.1) mmol/L Chloride 105 (98-107) mmol/L Carbon Dioxide 27 (22-30) mmol/L Anion Gap 6 mmol/L BUN 19 (9-20) mg/dL Creatinine 0.88 (0.66-1.25) mg/dL Est GFR (CKD-EPI)AfAm >90 (>60 ml/min/1.73 sqM) Est GFR (CKD-EPI)NonAf 88 (>60 ml/min/1.73 sqM) Glucose 157 H (74-99) mg/dL Lactic Ac Sepsis Rflx Plasma Lactic Acid Srini (0.7-2.0) mmol/L Calcium 9.5 (8.4-10.2) mg/dL Magnesium 1.9 (1.6-2.3) mg/dL Total Bilirubin 0.4 (0.2-1.3) mg/dL AST 29 (17-59) U/L ALT 25 (4-49) U/L Alkaline Phosphatase 73 (38-126) U/L Troponin I (0.000-0.034) ng/mL NT-Pro-B Natriuret Pep pg/mL Total Protein 7.1 (6.3-8.2) g/dL Albumin 4.0 (3.5-5.0) g/dL 07/12/20 07/12/20 07/12/20 Range/Units 17:22 17:22 17:22 WBC (3.8-10.6) k/uL RBC (4.30-5.90) m/uL Hgb (13.0-17.5) gm/dL Hct (39.0-53.0) % MCV (80.0-100.0) fL MCH (25.0-35.0) pg MCHC (31.0-37.0) g/dL RDW (11.5-15.5) % Plt Count (150-450) k/uL Neutrophils % % Lymphocytes % % Monocytes % % Eosinophils % % Basophils % % Neutrophils # (1.3-7.7) k/uL Lymphocytes # (1.0-4.8) k/uL Monocytes # (0-1.0) k/uL Eosinophils # (0-0.7) k/uL Basophils # (0-0.2) k/uL PT (9.0-12.0) sec INR (<1.2) APTT (22.0-30.0) sec Sodium (137-145) mmol/L Potassium (3.5-5.1) mmol/L Chloride (98-107) mmol/L Carbon Dioxide (22-30) mmol/L Anion Gap mmol/L BUN (9-20) mg/dL Creatinine (0.66-1.25) mg/dL Est GFR (CKD-EPI)AfAm (>60 ml/min/1.73 sqM) Est GFR (CKD-EPI)NonAf (>60 ml/min/1.73 sqM) Glucose (74-99) mg/dL Lactic Ac Sepsis Rflx Plasma Lactic Acid Srini 2.1 H* (0.7-2.0) mmol/L Calcium (8.4-10.2) mg/dL Magnesium (1.6-2.3) mg/dL Total Bilirubin (0.2-1.3) mg/dL AST (17-59) U/L ALT (4-49) U/L Alkaline Phosphatase (38-126) U/L Troponin I <0.012 (0.000-0.034) ng/mL NT-Pro-B Natriuret Pep 74 pg/mL Total Protein (6.3-8.2) g/dL Albumin (3.5-5.0) g/dL 07/12/20 Range/Units 18:21 WBC (3.8-10.6) k/uL RBC (4.30-5.90) m/uL Hgb (13.0-17.5) gm/dL Hct (39.0-53.0) % MCV (80.0-100.0) fL MCH (25.0-35.0) pg MCHC (31.0-37.0) g/dL RDW (11.5-15.5) % Plt Count (150-450) k/uL Neutrophils % % Lymphocytes % % Monocytes % % Eosinophils % % Basophils % % Neutrophils # (1.3-7.7) k/uL Lymphocytes # (1.0-4.8) k/uL Monocytes # (0-1.0) k/uL Eosinophils # (0-0.7) k/uL Basophils # (0-0.2) k/uL PT (9.0-12.0) sec INR (<1.2) APTT (22.0-30.0) sec Sodium (137-145) mmol/L Potassium (3.5-5.1) mmol/L Chloride (98-107) mmol/L Carbon Dioxide (22-30) mmol/L Anion Gap mmol/L BUN (9-20) mg/dL Creatinine (0.66-1.25) mg/dL Est GFR (CKD-EPI)AfAm (>60 ml/min/1.73 sqM) Est GFR (CKD-EPI)NonAf (>60 ml/min/1.73 sqM) Glucose (74-99) mg/dL Lactic Ac Sepsis Rflx Y Plasma Lactic Acid Srini (0.7-2.0) mmol/L Calcium (8.4-10.2) mg/dL Magnesium (1.6-2.3) mg/dL Total Bilirubin (0.2-1.3) mg/dL AST (17-59) U/L ALT (4-49) U/L Alkaline Phosphatase (38-126) U/L Troponin I (0.000-0.034) ng/mL NT-Pro-B Natriuret Pep pg/mL Total Protein (6.3-8.2) g/dL Albumin (3.5-5.0) g/dL - EKG Data EKG Comments: EKG demonstrates normal sinus rhythm with a ventricular rate of 70. ME interval 190. QRS 86. QTC of 427. Q wave in lead 3. No acute ST segment elevations or depressions concerning for ischemic changes Repeat EKG at 1805 demonstrates a sinus bradycardia with ventricular rate of 52. ME interval 192. QRS 86. QTC 377. No evidence of high degree block. No acute ST segment elevations or depressions. Rhythm strip also obtained at this time Disposition Clinical Impression: Chest pain Disposition: ADMITTED IP TO THIS HOSP Condition: Stable Is patient prescribed a controlled substance at d/c from ED?: No Decision to Admit Reason: Admit from EC Decision Date: 07/12/20 Decision Time: 18:57
--- NOTE | 2020-07-12 17:39 | XR ---
EXAMINATION TYPE: XR chest 2V DATE OF EXAM: 07/12/2020 COMPARISON: 05/14/2020 HISTORY: Pain TECHNIQUE: 2 views FINDINGS: Heart and mediastinum are normal. Lungs are clear of infiltrate. There is no pleural effusi on. There are sternal wires. There are chest leads. Bony thorax is intact. There is cardiac valve surgery. IMPRESSION: No active cardiopulmonary disease. No change.
[2020-07-12 17:42] LABS: Basophils # (A) 0.1 k/uL (0-0.2); Basophils % (A) 1 %; Eosinophils # (A) 0.4 k/uL (0-0.7); Eosinophils % (A) 3 %; HCT 48.8 % (39.0-53.0); HGB 15.7 gm/dL (13.0-17.5); Lymphocytes % (A) 28 %; MCHC 32.2 g/dL (31.0-37.0); MCV 93.4 fL (80.0-100.0); Mean Platelet Volume 9.4; Monocytes # (A) 0.8 k/uL (0-1.0); Monocytes % (A) 8 %; Neutrophils # (A) 6.1 k/uL (1.3-7.7); Neutrophils % (A) 58 %; Platelet Count 211 k/uL (150-450); RBC 5.23 m/uL (4.30-5.90); RDW 13.6 % (11.5-15.5); WBC 10.5 k/uL (3.8-10.6)
[2020-07-12 17:52] LABS: INR 0.9 (<1.2); Partial Thromboplastin Time 24.1 sec (22.0-30.0); Prothrombin Time 9.4 sec (9.0-12.0)
[2020-07-12 18:02] LABS: ALT 25 U/L (4-49); AST 29 U/L (17-59); African American GFR (CKD) >90 (>60 ml/min/1.73 sqM); Alkaline Phosphatase 73 U/L (38-126); Anion Gap 6 mmol/L; Blood Urea Nitrogen 19 mg/dL (9-20); Calcium 9.5 mg/dL (8.4-10.2); Carbon Dioxide 27 mmol/L (22-30); Chloride 105 mmol/L (98-107); Glucose 157 mg/dL (74-99); Magnesium 1.9 mg/dL (1.6-2.3); Non-African American GFR(CKD) 88 (>60 ml/min/1.73 sqM); Potassium 4.5 mmol/L (3.5-5.1); Sodium 138 mmol/L (137-145); Total Bilirubin 0.4 mg/dL (0.2-1.3); Total Protein 7.1 g/dL (6.3-8.2)
[2020-07-12] MEDS ORDERED: NALOXONE 0.4 MG/ML 1 ML VIAL IV PRN (19:32)
[2020-07-12] MEDS: SODIUM CHLORIDE 0.9% 1,000 ML IV SCH (21:57)
[2020-07-13 06:27] LABS: Glucose,Whole Blood 186 mg/dL (75-99)
[2020-07-13 08:02] VITALS: RESP 16
[2020-07-13 08:38] LABS: Basophils # (A) 0.1 k/uL (0-0.2); Basophils % (A) 1 %; Eosinophils # (A) 0.3 k/uL (0-0.7); Eosinophils % (A) 3 %; HCT 46.5 % (39.0-53.0); Lymphocytes # (A) 2.8 k/uL (1.0-4.8); Lymphocytes % (A) 32 %; MCH 30.2 pg (25.0-35.0); MCHC 32.3 g/dL (31.0-37.0); MCV 93.4 fL (80.0-100.0); Mean Platelet Volume 10.5; Monocytes # (A) 0.7 k/uL (0-1.0); Monocytes % (A) 8 %; Neutrophils # (A) 4.6 k/uL (1.3-7.7); Neutrophils % (A) 53 %; Platelet Count 200 k/uL (150-450); RBC 4.98 m/uL (4.30-5.90); RDW 13.7 % (11.5-15.5); WBC 8.6 k/uL (3.8-10.6)
[2020-07-13 08:42] LABS: African American GFR (CKD) >90 (>60 ml/min/1.73 sqM); Anion Gap 4 mmol/L; Blood Urea Nitrogen 18 mg/dL (9-20); Calcium 8.2 mg/dL (8.4-10.2); Carbon Dioxide 27 mmol/L (22-30); Chloride 106 mmol/L (98-107); Glucose 191 mg/dL (74-99); Non-African American GFR(CKD) >90 (>60 ml/min/1.73 sqM); Potassium 4.2 mmol/L (3.5-5.1); Sodium 137 mmol/L (137-145)
[2020-07-13] MEDS: SODIUM CHLORIDE 0.9% 1,000 ML IV SCH (08:57)
[2020-07-13] MEDS ORDERED: ACETAMINOPHEN TAB 325 MG TAB PO PRN (08:59)
[2020-07-13] MEDS ORDERED: DILTIAZEM CD 120 MG CAP.ER.24H PO SCH (09:00)
[2020-07-13] MEDS ORDERED: FUROSEMIDE 40 MG TAB PO SCH (09:00)
[2020-07-13] MEDS ORDERED: METOPROLOL TARTRATE 25 MG TAB PO SCH ×2 (09:00→21:00)
[2020-07-13] MEDS ORDERED: APIXABAN 5 MG TAB PO SCH (09:00)
[2020-07-13] MEDS ORDERED: MECLIZINE 25 MG TAB PO PRN (09:03)
--- NOTE | 2020-07-13 09:44 | P.HPIM ---
History of Present Illness 70-year-old male with past medical history of coronary disease, diabetes, hypertension who presents to the emergency department with reported left-sided chest pain, left upper arm tingling and shortness of breath. Patient was seen and Dr. Mayorga's office today. He does have a history of CABG and aortic valve replacement. Dr. Mayorga thought that the patient was conversational dyspneic in the office. He also stated that he was short of breath when laying down and had some approximately 11 pounds in the past month. He recommended that the patient come to the emergency department for evaluation of possible congestive heart failure. Patient reports to lightheadedness which has been chronic for him. He has a history of vertigo and states that he has taken multiple tablets of his "vertigo medication" however cannot name to me what these are. States his certified physician assistant is Dr. Anderson. Denies ripping or tearing sensation to his back. No fevers or chills. Denies cough. No vision changes. No other alleviating, Perceptin or modifying factors. Patient was a valid by cardiology rule out acute coronary syndromes EKG no significant abnormality troponins were negative. Echocardiogram is being up and by cardiology and if there is okay patient will be discharged today. Before his discharge and also do workup for a stroke several vascular accident with a computed tomography scan without contrast and carotid Doppler. all patient's symptoms completely resolved patient denied any shortness of breath patient on multiple [id number] supplements. Review of Systems i REVIEW OF SYSTEMS: CONSTITUTIONAL: No fever, no malaise, no fatigue. HEENT: No recent visual problems or hearing problems. Denied any sore throat. CARDIOVASCULAR: No chest pain, orthopnea, PND, no palpitations, no syncope. PULMONARY: No shortness of breath, no cough, no hemoptysis. GASTROINTESTINAL: No diarrhea, no nausea, no vomiting, no abdominal pain. NEUROLOGICAL: as mentioned in HPI HEMATOLOGICAL: Denies any bleeding or petechiae. GENITOURINARY: Denies any burning micturition, frequency, or urgency. MUSCULOSKELETAL/RHEUMATOLOGICAL: Denies any joint pain, swelling, or any muscle pain. ENDOCRINE: Denies any polyuria or polydipsia. The rest of the 14-point review of systems is negative. 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 Last Myocardial Infarction Date:: 09/06/2019 History of Any Multi-Drug Resistant Organisms: None Reported Past Surgical History: Appendectomy, Coronary Bypass/CABG, Heart Catheterization With Stent Additional Past Surgical History / Comment(s): spleenectomy, sinus surgery, jaw surgery Past Anesthesia/Blood Transfusion Reactions: No Reported Reaction Date of Last Stent Placement:: august of 2019 Past Psychological History: No Psychological Hx Reported Smoking Status: Never smoker Past Alcohol Use History: None Reported Past Drug Use History: None Reported - Past Family History Mother Family Medical History: Congestive Heart Failure (CHF) Father Family Medical History: Myocardial Infarction (CA) Sister(s) Family Medical History: Coronary Artery Disease (CAD) Additional Family Medical History / Comment(s): Status post coronary artery bypass grafting surgery. Medications and Allergies Home Medications Medication Instructions Recorded Confirmed Type Apixaban [Eliquis] 5 mg PO BID #60 tab 10/10/19 07/12/20 Rx Diltiazem Cd [Cardizem CD] 120 mg PO DAILY #30 cap.er.24h 10/10/19 07/12/20 Rx Furosemide [Lasix] 40 mg PO DAILY #30 tablet 10/10/19 07/12/20 Rx Metoprolol Tartrate [Lopressor] 50 mg PO BID #60 tab 10/10/19 07/12/20 Rx metFORMIN HCL 1,000 mg PO BID #60 tab 10/10/19 07/12/20 Rx Ascorbic Acid [Vitamin C] 1,000 mg PO DAILY 05/14/20 07/12/20 History Ashwagandha 1 tab PO BID 05/14/20 07/12/20 History Astragalus 1 tab PO BID 05/14/20 07/12/20 History Cholecalciferol (Vitamin D3) 125 mcg PO DAILY 05/14/20 07/12/20 History [Vitamin D3] Chromium Picolinate(Unknown Dose) 1 tab PO DAILY 05/14/20 07/12/20 History De-Ribbed Lien Powder 1 scoop PO BID 05/14/20 07/12/20 History Egg Protein Powder 1 scoop PO DAILY 05/14/20 07/12/20 History Fish Oil/Dha/Epa [Fish Oil 1,200 1 cap PO TID 05/14/20 07/12/20 History mg Fish Oil] Ip-6 Inositol 3 tab PO BID 05/14/20 07/12/20 History L-Carnitine(Unknown Dose) 2 tab PO BID 05/14/20 07/12/20 History Lutein 20 mg PO DAILY 05/14/20 07/12/20 History Selenium(Unknown Dose) 1 tab PO DAILY 05/14/20 07/12/20 History Spironolactone 25 mg PO HS 05/14/20 07/12/20 History [place] Lecithin Powder 1 scoop PO DAILY 05/14/20 07/12/20 History Turmeric Root Extract [Turmeric] 500 mg PO BID PRN 05/14/20 07/12/20 History Ubidecarenone [Co Q-10] 100 mg PO BID 05/14/20 07/12/20 History Zinc 50 mg PO DAILY 05/14/20 07/12/20 History Avocado Oil 1 tsp PO BID 07/12/20 07/12/20 History Black Seed Oil 1 tsp PO BID 07/12/20 07/12/20 History Meclizine [Antivert] 25 mg PO BID PRN 07/12/20 07/12/20 History Milk Thistle 1000mg 1 cap PO BID 07/12/20 07/12/20 History Rutin/Quercetin/Bioflav/Bilber 1 cap PO BID 07/12/20 07/12/20 History [Bilberry Extract] Allergies Allergy/AdvReac Type Severity Reaction Status Date / Time prednisone Allergy Anaphylaxis Verified 07/12/20 20:15 albuterol AdvReac Unknown Verified 07/12/20 20:15 Physical Exam Vitals: Vital Signs Temp Pulse Pulse Resp BP BP Pulse Ox 07/13/20 08:01 97.7 F 69 16 127/72 93 L 07/13/20 04:50 97.6 F 78 18 115/69 95 07/12/20 20:44 97.5 F L 54 L 19 119/71 97 07/12/20 20:40 97.5 F L 54 L 19 119/71 97 07/12/20 19:53 75 16 128/73 96 07/12/20 18:32 18 07/12/20 16:40 97.6 F 74 18 125/70 95 Intake and Output 07/12/20 07/13/20 07/13/20 22:59 06:59 14:59 Other: Voiding Method Toilet Toilet Toilet # Voids 2 Weight 116.12 kg PHYSICAL EXAMINATION: GENERAL: The patient is alert and oriented x3, not in any acute distress.obese HEENT: Pupils are round and equally reacting to light. EOMI. No scleral icterus. No conjunctival pallor. Normocephalic, atraumatic. No pharyngeal erythema. No thyromegaly. CARDIOVASCULAR: S1 and S2 present. No murmurs, rubs, or gallops. PULMONARY: Chest is clear to auscultation, no wheezing or crackles. ABDOMEN: Soft, nontender, nondistended, normoactive bowel sounds. No palpable organomegaly. MUSCULOSKELETAL: No joint swelling or deformity. EXTREMITIES: No cyanosis, clubbing, or pedal edema. NEUROLOGICAL: Gross neurological examination did not reveal any focal deficits. SKIN: No rashes. Results CBC & Chem 7: 07/13/20 07:28 07/13/20 07:28 Labs: Abnormal Lab Results - Last 24 Hours (Table) 07/12/20 07/12/20 07/12/20 Range/Units 17:22 17:22 20:23 Glucose 157 H (74-99) mg/dL POC Glucose (mg/dL) (75-99) mg/dL Plasma Lactic Acid Srini 2.1 H* 2.8 H* (0.7-2.0) mmol/L Calcium (8.4-10.2) mg/dL 07/13/20 07/13/20 Range/Units 06:26 07:28 Glucose 191 H (74-99) mg/dL POC Glucose (mg/dL) 186 H (75-99) mg/dL Plasma Lactic Acid Srini (0.7-2.0) mmol/L Calcium 8.2 L (8.4-10.2) mg/dL Thrombosis Risk Factor Assmnt - Choose All That Apply Each Factor Represents 1 point: Obesity (BMI >25) Each Risk Factor Represents 2 Points: Age 61-74 years Thrombosis Risk Factor Assessment Total Risk Factor Score: 3 Thrombosis Risk Factor Assessment Level: Moderate Risk Assessment and Plan Plan: -shortness of breath with tingling and numbness in the left arm: Rule out a concurrent syndromes patient will undergo echocardiogram was evaluated cardiology for echocardiogram doesn't show any significant pneumonia most abdomen this patient will be discharged today. -Numbness in the left arm along with tingling: Possibly of CVAs lowpatient denied any neck pain related to peripheral Neurontin causes. I'll rule out cerebral vascular accident with the CT of the head and a carotid Doppler and patient is already getting an echocardiogram is already in the aspirin at home. -coronary artery disease and CABG in the past -type 2 diabetes mellitus hyperlipidemia -Sleep apnea and uses CPAP machine at home
--- NOTE | 2020-07-13 09:45 | P.DS ---
Providers Date of admission: 07/12/20 19:32 Attending physician: Mayo Wilde Consults: 07/12/20 19:34 Consult Physician Urgent Consulting Provider: [facility] Consult Reason/Comments: acute chest pain, acute transient bradycardia Do you want consulting provider notified?: Yes Primary care physician: Timo Osuna [facility] Course: please refer to my HPI for details Patient Condition at Discharge: Stable Plan - Discharge Summary Discharge Rx Participant: No New Discharge Prescriptions: Discontinued Ginseng W/[place] Jelly 2 tab PO DAILY [place] Oil 1 tsp PO BID Macugaurd 1 tab PO DAILY No Action Metoprolol Tartrate [Lopressor] 50 mg PO BID #60 tab Apixaban [Eliquis] 5 mg PO BID #60 tab Diltiazem Cd [Cardizem CD] 120 mg PO DAILY #30 cap.er.24h Furosemide [Lasix] 40 mg PO DAILY #30 tablet metFORMIN HCL 1,000 mg PO BID #60 tab Chromium Picolinate(Unknown Dose) 1 tab PO DAILY Zinc 50 mg PO DAILY Selenium(Unknown Dose) 1 tab PO DAILY Lutein 20 mg PO DAILY Egg Protein Powder 1 scoop PO DAILY Ascorbic Acid [Vitamin C] 1,000 mg PO DAILY L-Carnitine(Unknown Dose) 2 tab PO BID Fish Oil/Dha/Epa [Fish Oil 1,200 mg Fish Oil] 1 cap PO TID Cholecalciferol (Vitamin D3) [Vitamin D3] 125 mcg PO DAILY Ubidecarenone [Co Q-10] 100 mg PO BID [place] Lecithin Powder 1 scoop PO DAILY De-Ribbed Lien Powder 1 scoop PO BID Turmeric Root Extract [Turmeric] 500 mg PO BID PRN PRN Reason: Inflammation Astragalus 1 tab PO BID Spironolactone 25 mg PO HS Ip-6 Inositol 3 tab PO BID Ashwagandha 1 tab PO BID Milk Thistle 1000mg 1 cap PO BID Meclizine [Antivert] 25 mg PO BID PRN PRN Reason: Vertigo Rutin/Quercetin/Bioflav/Bilber [Bilberry Extract] 1 cap PO BID Avocado Oil 1 tsp PO BID Black Seed Oil 1 tsp PO BID Discharge Medication List Apixaban [Eliquis] 5 mg PO BID #60 tab 10/10/19 [Rx] Diltiazem Cd [Cardizem CD] 120 mg PO DAILY #30 cap.er.24h 10/10/19 [Rx] Furosemide [Lasix] 40 mg PO DAILY #30 tablet 10/10/19 [Rx] Metoprolol Tartrate [Lopressor] 50 mg PO BID #60 tab 10/10/19 [Rx] metFORMIN HCL 1,000 mg PO BID #60 tab 10/10/19 [Rx] Ascorbic Acid [Vitamin C] 1,000 mg PO DAILY 05/14/20 [History] Ashwagandha 1 tab PO BID 05/14/20 [History] Astragalus 1 tab PO BID 05/14/20 [History] Cholecalciferol (Vitamin D3) [Vitamin D3] 125 mcg PO DAILY 05/14/20 [History] Chromium Picolinate(Unknown Dose) 1 tab PO DAILY 05/14/20 [History] De-Ribbed Lien Powder 1 scoop PO BID 05/14/20 [History] Egg Protein Powder 1 scoop PO DAILY 05/14/20 [History] Fish Oil/Dha/Epa [Fish Oil 1,200 mg Fish Oil] 1 cap PO TID 05/14/20 [History] Ip-6 Inositol 3 tab PO BID 05/14/20 [History] L-Carnitine(Unknown Dose) 2 tab PO BID 05/14/20 [History] Lutein 20 mg PO DAILY 05/14/20 [History] Selenium(Unknown Dose) 1 tab PO DAILY 05/14/20 [History] Spironolactone 25 mg PO HS 05/14/20 [History] [place] Lecithin Powder 1 scoop PO DAILY 05/14/20 [History] Turmeric Root Extract [Turmeric] 500 mg PO BID PRN 05/14/20 [History] Ubidecarenone [Co Q-10] 100 mg PO BID 05/14/20 [History] Zinc 50 mg PO DAILY 05/14/20 [History] Avocado Oil 1 tsp PO BID 07/12/20 [History] Black Seed Oil 1 tsp PO BID 07/12/20 [History] Meclizine [Antivert] 25 mg PO BID PRN 07/12/20 [History] Milk Thistle 1000mg 1 cap PO BID 07/12/20 [History] Rutin/Quercetin/Bioflav/Bilber [Bilberry Extract] 1 cap PO BID 07/12/20 [History] Follow up Appointment(s)/Referral(s): Timo Mayorga III, MD [Primary Care Provider] - 3 Days Patient Instructions/Handouts: Chest Pain (GEN), Shortness of Breath (GEN) Discharge Disposition: HOME SELF-CARE
--- NOTE | 2020-07-13 10:54 | CT ---
EXAMINATION TYPE: CT brain wo con DATE OF EXAM: 07/13/2020 COMPARISON: 09/06/2019 HISTORY: Dizziness, left arm tingling CT DLP: 1065.3 mGycm Automated exposure control for dose reduction was used. FINDINGS: There is a 3.2 x 3.9 cm anterior temporal fossa cyst most compatible with arachnoid cyst with ann karan of the anterior cortex of the left temporal lobe. Mild generalized degenerative change. Low-attenuation in the white matter is nonspecific but most typ ical remote ischemia. Intracranial atherosclerotic changes noted. Calvarium intact. Orbital structure s are symmetric. Changes of chronic sinusitis are noted. Sinonasal polyposis in the differential diag nosis. Craniocervical junction maintained. Sella turcica has a normal appearance. IMPRESSION: 1. Large left anterior temporal fossa cyst measuring 3.2 x 3.9 cm most suggestive of an arachnoid cys t with compression of the anterior left temporal cortex. Findings similar to the prior exam. 2. Degenerative and nonspecific white matter changes most typical remote microvascular ischemia. 3. Changes of chronic sinusitis.
--- NOTE | 2020-07-13 10:56 | P.CRDCN ---
History of Present Illness History of present illness: HISTORY OF PRESENTING ILLNESS This is a pleasant 70-year-old male past medical history significant for artery disease status post bypass grafting, valvular heart disease status post aortic valve replacement, hyperlipidemia, diabetes mellitus, hypertension, paroxysmal atrial fibrillation on long-term anticoagulation, ischemic cardiomyopathy and obstructive sleep apnea. He follows in the office with Dr. Post. We have been asked to see in consultation for chest pain and bradycardia. He states he was sent to the emergency department on advice of his primary care physician secondary to generalized weakness and shortness of breath. He is seen and examined sitting up in the chair in no acute distress. He states he has become increasingly forgetful lately and is having trouble with his medication regimen. He has not been taking his medication as prescribed. He thinks he is just forgetting. Recently he has noticed increased generalized weakness and some exertional shortness of breath. He states yesterday while sitting in the emergency department he noticed his heart rate was fluctuating from 2200 on the monitor. Last evening telemetry tracings indicated he went into afib intermittently with controlled ventricular rates. He was asymptomatic at the time. He denies chest pain, dizziness or palpitations currently. He does recall feeling palpitations at times that may be associated with his shortness of breath. DIAGNOSTICS EKG reveals sinus mechanism heart rate of 70 with poor R-wave progression. Chest xray negative for an acute cardiopulmonary process. Laboratory reviewed, CBC unremarkable, sodium 137, potassium 4.2, creatinine 0.79, cardiac enzymes negative 3, lactic acid on admission 2.1 repeat after fluid hydration 1.9, magnesium 1.9, cardiac enzymes negative 3, NT proBNP 74. Current cardiac medications include Aldactone 25 mg daily, Lopressor 50 mg twice a day, Lasix 40 mg daily, diltiazem 120 mg daily and Eliquis 5 mg twice a day. Echocardiogram obtained prior to aortic valve surgery revealed preserved LV systolic function with ejection fraction 50-55% with severe aortic stenosis with a mean gradient of 47 mmHg and mild to moderate tricuspid regurgitation. REVIEW OF SYSTEMS At the time of my exam: CONSTITUTIONAL: Denies fever or chills. CARDIOVASCULAR: Denies chest pain, shortness of breath, orthopnea, PND or palpitations. RESPIRATORY: Denies cough. GASTROINTESTINAL: Denies abdominal pain, diarrhea, constipation, nausea or vomit ing. MUSCULOSKELETAL: Denies myalgias. NEUROLOGIC: Denies numbness, tingling or weakness. ENDOCRINE: Denies fatigue, weight change, polydipsia or polyurina. GENITOURINARY: Denies burning, hematuria or urgency with micturation. HEMATOLOGIC: Denies history of anemia or bleeding. PHYSICAL EXAMINATION Blood pressure 127/72 heart rate 69 afebrile and maintaining oxygen saturation on room air. CONSTITUTIONAL: No apparent distress. HEENT: Head is normocephalic. Pupils are equal, round. Sclerae anicteric. Mucous membranes of the mouth are moist. No JVD. No carotid bruit. CHEST EXAMINATION: Lungs are clear to auscultation. No chest wall tenderness is noted on palpation or with deep breathing. HEART EXAMINATION: Regular rate and rhythm. S1, S2 heard. Systolic ejection murmur at the base, no gallops or rub. ABDOMEN: Soft, nontender. Positive bowel sounds. EXTREMITIES: 2+ peripheral pulses, 1+ bilateral lower extremity edema and no calf tenderness. NEUROLOGIC EXAMINATION: Patient is awake, alert and oriented x3. ASSESSMENT Palpitations, shortness of breath and weakness. An acute event has been ruled out. Altered mental status Lactic acidosis Coronary artery disease status post bypass grafting Valvular heart disease status post aortic valve replacement Paroxysmal atrial fibrillation on long-term anticoagulation Hypertension Dyslipidemia Diabetes mellitus PLAN An acute coronary event has been ruled out. Decreased Lopressor to 25 mg twice a day. Continue Eliquis, diltiazem, Lasix and Aldactone as previously ordered. Request social work or case management evaluation to assist the patient with possible home care needs. Obtain 2-D echocardiogram and Doppler study to assess cardiac structure and function. Follow-up with Dr. Post in the outpatient setting. Thank you kindly for this consultation. Nurse Practitioner note has been reviewed, I agree with a documented findings and plan of care. Patient was seen and examined. 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 Last Myocardial Infarction Date:: 09/06/2019 History of Any Multi-Drug Resistant Organisms: None Reported Past Surgical History: Appendectomy, Coronary Bypass/CABG, Heart Catheterization With Stent Additional Past Surgical History / Comment(s): spleenectomy, sinus surgery, jaw surgery Past Anesthesia/Blood Transfusion Reactions: No Reported Reaction Date of Last Stent Placement:: august of 2019 Past Psychological History: No Psychological Hx Reported Smoking Status: Never smoker Past Alcohol Use History: None Reported Past Drug Use History: None Reported - Past Family History Mother Family Medical History: Congestive Heart Failure (CHF) Father Family Medical History: Myocardial Infarction (ID) Sister(s) Family Medical History: Coronary Artery Disease (CAD) Additional Family Medical History / Comment(s): Status post coronary artery b ypass grafting surgery. Medications and Allergies Home Medications Medication Instructions Recorded Confirmed Type Apixaban [Eliquis] 5 mg PO BID #60 tab 10/10/19 07/12/20 Rx Diltiazem Cd [Cardizem CD] 120 mg PO DAILY #30 cap.er.24h 10/10/19 07/12/20 Rx Furosemide [Lasix] 40 mg PO DAILY #30 tablet 10/10/19 07/12/20 Rx Metoprolol Tartrate [Lopressor] 50 mg PO BID #60 tab 10/10/19 07/12/20 Rx metFORMIN HCL 1,000 mg PO BID #60 tab 10/10/19 07/12/20 Rx Ascorbic Acid [Vitamin C] 1,000 mg PO DAILY 05/14/20 07/12/20 History Ashwagandha 1 tab PO BID 05/14/20 07/12/20 History Astragalus 1 tab PO BID 05/14/20 07/12/20 History Cholecalciferol (Vitamin D3) 125 mcg PO DAILY 05/14/20 07/12/20 History [Vitamin D3] Chromium Picolinate(Unknown Dose) 1 tab PO DAILY 05/14/20 07/12/20 History De-Ribbed Lien Powder 1 scoop PO BID 05/14/20 07/12/20 History Egg Protein Powder 1 scoop PO DAILY 05/14/20 07/12/20 History Fish Oil/Dha/Epa [Fish Oil 1,200 1 cap PO TID 05/14/20 07/12/20 History mg Fish Oil] Ip-6 Inositol 3 tab PO BID 05/14/20 07/12/20 History L-Carnitine(Unknown Dose) 2 tab PO BID 05/14/20 07/12/20 History Lutein 20 mg PO DAILY 05/14/20 07/12/20 History Selenium(Unknown Dose) 1 tab PO DAILY 05/14/20 07/12/20 History Spironolactone 25 mg PO HS 05/14/20 07/12/20 History [place] Lecithin Powder 1 scoop PO DAILY 05/14/20 07/12/20 History Turmeric Root Extract [Turmeric] 500 mg PO BID PRN 05/14/20 07/12/20 History Ubidecarenone [Co Q-10] 100 mg PO BID 05/14/20 07/12/20 History Zinc 50 mg PO DAILY 05/14/20 07/12/20 History Avocado Oil 1 tsp PO BID 07/12/20 07/12/20 History Black Seed Oil 1 tsp PO BID 07/12/20 07/12/20 History Meclizine [Antivert] 25 mg PO BID PRN 07/12/20 07/12/20 History Milk Thistle 1000mg 1 cap PO BID 07/12/20 07/12/20 History Rutin/Quercetin/Bioflav/Bilber 1 cap PO BID 07/12/20 07/12/20 History [Bilberry Extract] Allergies Allergy/AdvReac Type Severity Reaction Status Date / Time prednisone Allergy Anaphylaxis Verified 07/12/20 20:15 albuterol AdvReac Unknown Verified 07/12/20 20:15 Physical Exam Vitals: Vital Signs Temp Pulse Pulse Resp BP BP Pulse Ox 07/13/20 08:01 97.7 F 69 16 127/72 93 L 07/13/20 04:50 97.6 F 78 18 115/69 95 07/12/20 20:44 97.5 F L 54 L 19 119/71 97 07/12/20 20:40 97.5 F L 54 L 19 119/71 97 07/12/20 19:53 75 16 128/73 96 07/12/20 18:32 18 07/12/20 16:40 97.6 F 74 18 125/70 95 Intake and Output 07/12/20 07/13/20 07/13/20 22:59 06:59 14:59 Other: Voiding Method Toilet Toilet Toilet # Voids 2 Weight 116.12 kg Results 07/13/20 07:28 07/13/20 07:28 Cardiac Enzymes 07/12/20 07/12/20 07/12/20 Range/Units 17:22 17:22 20:23 AST 29 (17-59) U/L Troponin I <0.012 <0.012 (0.000-0.034) ng/mL 07/12/20 Range/Units 23:40 AST (17-59) U/L Troponin I <0.012 (0.000-0.034) ng/mL Coagulation 07/12/20 Range/Units 17:22 PT 9.4 (9.0-12.0) sec APTT 24.1 (22.0-30.0) sec CBC 07/12/20 07/13/20 Range/Units 17:22 07:28 WBC 10.5 8.6 (3.8-10.6) k/uL RBC 5.23 4.98 (4.30-5.90) m/uL Hgb 15.7 15.0 (13.0-17.5) gm/dL Hct 48.8 46.5 (39.0-53.0) % Plt Count 211 200 (150-450) k/uL Comprehensive Metabolic Panel 07/12/20 07/13/20 Range/Units 17:22 07:28 Sodium 138 137 (137-145) mmol/L Potassium 4.5 4.2 (3.5-5.1) mmol/L Chloride 105 106 (98-107) mmol/L Carbon Dioxide 27 27 (22-30) mmol/L BUN 19 18 (9-20) mg/dL Creatinine 0.88 0.79 (0.66-1.25) mg/dL Glucose 157 H 191 H (74-99) mg/dL Calcium 9.5 8.2 L (8.4-10.2) mg/dL AST 29 (17-59) U/L ALT 25 (4-49) U/L Alkaline Phosphatase 73 (38-126) U/L Total Protein 7.1 (6.3-8.2) g/dL Albumin 4.0 (3.5-5.0) g/dL Current Medications Generic Name Dose Route Start Last Admin Trade Name Freq PRN Reason Stop Dose Admin Acetaminophen 650 mg 07/13/20 08:59 Acetaminophen Tab 325 Mg Tab PO Q6HR PRN Fever and/ or Pain Apixaban 5 mg 07/13/20 09:00 07/13/20 08:57 Apixaban 5 Mg Tab PO 5 mg BID MASSIMO Administration Diltiazem HCl 120 mg 07/13/20 09:00 07/13/20 09:15 Diltiazem Cd 120 Mg Cap.Er.24h PO 120 mg DAILY MASSIMO Administration Furosemide 40 mg 07/13/20 09:00 07/13/20 08:57 Furosemide 40 Mg Tab PO 40 mg DAILY MASSIMO Administration Meclizine HCl 25 mg 07/13/20 09:03 Meclizine 25 Mg Tab PO BID PRN Vertigo Metformin HCl 1,000 mg 07/13/20 17:30 Metformin 500 Mg Tab PO AC-BID MASSIMO Metoprolol Tartrate 50 mg 07/13/20 21:00 Metoprolol Tartrate 50 Mg Tab PO BID MASSIMO Naloxone HCl 0.2 mg 07/12/20 19:32 Naloxone 0.4 Mg/Ml 1 Ml Vial IV Q2M PRN Opioid Reversal Spironolactone 25 mg 07/13/20 21:00 Spironolactone 25 Mg Tab PO HS MASSIMO Intake and Output 07/12/20 07/13/20 07/13/20 22:59 06:59 14:59 Other: Voiding Method Toilet Toilet Toilet # Voids 2 Weight 116.12 kg 07/13/20 07:28 07/13/20 07:28
--- NOTE | 2020-07-13 11:23 | US ---
EXAMINATION TYPE: US carotid duplex BILAT DATE OF EXAM: 07/13/2020 COMPARISON: NONE CLINICAL HISTORY: CVA. EXAM MEASUREMENTS: RIGHT: Peak Systolic Velocity (PSV) cm/sec ----- Right CCA: 103.3 ----- Right ICA: 90.8 ----- Right ECA: 140.8 ICA/CCA ratio: 0.9 RIGHT: End Diastole cm/sec ----- Right CCA: 20.2 ----- Right ICA: 14.3 ----- Right ECA: 8.7 LEFT: Peak Systolic Velocity (PSV) cm/sec ----- Left CCA: 114.9 ----- Left ICA: 110.7 ----- Left ECA: 125.4 ICA/CCA ratio: 1.0 LEFT: End Diastole cm/sec ----- Left CCA: 20.1 ----- Left ICA: 20.6 ----- Left ECA: 10.8 VERTEBRALS (direction of flow): Right Vertebral: Antegrade Left Vertebral: Antegrade Rhythm: Normal Large thick neck, technically difficult study. Mild atherosclerotic changes with no significant velocity increases. Intimal thickening is evident. IMPRESSION: 1. Atheromatous plaquing without significant flow-limiting stenosis internal carotid arteries. 2. There may be some borderline narrowing at 50% within the left external carotid artery. Moderate na rrowing of right external carotid artery between 50 and 69% is noted by velocity. Criteria for Assigning % of Stenosis / Diameter reduction (Estimation based on the indirect measurements of the internal carotid artery velocities (ICA PSV). 1. Normal (no stenosis)=ICA PSV < 125 cm/s: ratio < 2.0: ICA EDV<40 cm/s. 2. Less than 50% stenosis=ICA PSV < 125 cm/s: ratio < 2.0: ICA EDV<40 cm/s. 3. 50 to 69% stenosis=ICA PSV of 125 to 230 cm/s: ration 2.0 ? 4.0: ICA EDV 40-100 cm/s. 4. Greater than 70% stenosis to near occlusion= ICA PSV > 230 cm/s: ratio > 4.0: ICA EDV > 100 cm/s. 5. Near occlusion= ICA PSV velocities may be low or undetectable: variable ratio and ICA EDV. 6. Total occlusion=unable to detect flow.
--- NOTE | 2020-07-13 15:00 | ECHOF ---
Referral Reason:sob MEASUREMENTS -------- HEIGHT: 170.2 cm WEIGHT: 116.1 kg BP: 127/72 IVSd: 1.2 cm (0.6 - 1.1) LVIDd: 4.1 cm (3.9 - 5.3) LVPWd: 1.3 cm (0.6 - 1.1) EDV(Teich): 74 ml IVSs: 1.7 cm LVIDs: 2.6 cm LVPWs: 1.6 cm %IVS Thck: 39 % ESV(Teich): 24 ml EF(Teich): 67 % %FS: 37 % SV(Teich): 50 ml Ao Diam: 2.3 cm (2.0 - 3.7) LA Diam: 3.8 cm (2.7 - 3.8) AV Cusp: 1.5 cm (1.5 - 2.6) EPSS: 0.6 cm MV E Bradley: 0.69 m/s MV DecT: 262 ms MV Dec Magoffin: 2.6 m/s MV A Bradley: 0.93 m/s MV E/A Ratio: 0.74 MV PHT: 76 ms AV Vmax: 1.81 m/s AV maxP.11 mmHg AV Vmax: 1.87 m/s AV Vmean: 1.23 m/s AV maxP.00 mmHg AV meanP.89 mmHg AV Env.Ti: 284 ms AV VTI: 34.8 cm TR Vmax: 0.84 m/s TR maxP.85 mmHg RAP: 5.00 mmHg RVSP: 7.85 mmHg MV EF SLOPE: 38.91 mm/s (70 - 150) MV EXCURSION: 19.78 mm (> 18.000) FINDINGS -------- This was a technically difficult study with suboptimal views. The left ventricular size is normal. There is mild concentric left ventricular hypertrophy. Overa ll left ventricular systolic function is low-normal with, an EF between 50 - 55 %. There is paradox ical/dysynergic septal motion consistent with post-operative status. The right ventricle is normal in size. The left atrial size is normal. The right atrial size is normal. 5.0mg OF Lumason UTLIZED: 2 OR MORE WALL SEGMENTS NOT VISUALIZED. Peak/mean gradient across the Aortic Valve is 14.00mmHg / 6.89mmHg. Normally functioning bioprosthe tic valve. The mitral valve is normal. There is trace mitral regurgitation. The tricuspid valve appears structurally normal. Trace tricuspid regurgitation present. Right alicia tricular systolic pressure is normal at < 35 mmHg. There is no pulmonic regurgitation present. The aortic root size is normal. IVC Not well visulized. There is no pericardial effusion. CONCLUSIONS -------- 1. The left ventricular size is normal. 2. There is mild concentric left ventricular hypertrophy. 3. Overall left ventricular systolic function is low-normal with, an EF between 50 - 55 %. 4. There is paradoxical/dysynergic septal motion consistent with post-operative status. 5. Peak/mean gradient across the Aortic Valve is 14.00mmHg / 6.89mmHg. 6. Normally functioning bioprosthetic valve. 7. There is trace mitral regurgitation. 8. Trace tricuspid regurgitation present. 9. There is no pericardial effusion. FAN BLADE ALIGNER: Geetha Welch RDCS
[2020-07-13 15:04] VITALS: BP 115/68; PULSE 66; TEMP 97.8
[2020-07-13] MEDS ORDERED: metFORMIN 500 MG TAB PO SCH (17:30)
[2020-07-13] MEDS ORDERED: METOPROLOL TARTRATE 50 MG TAB PO SCH (21:00)
[2020-07-13] MEDS ORDERED: SPIRONOLACTONE 25 MG TAB PO SCH (21:00)
== END 2020-07-13 16:41 | disposition home or self-care (01) ==
LOC: EC 16:39 → 3NCARDOBS 19:32
PROVIDERS: ADMIT Internal Medicine; ATTEND Internal Medicine
DX: R07.89 Other chest pain (principal); E11.9 Type 2 diabetes mellitus without complications; E78.5 Hyperlipidemia, unspecified; E87.2 Acidosis; G47.30 Sleep apnea, unspecified; I08.2 Rheumatic disorders of both aortic and tricuspid valves; I10 Essential (primary) hypertension; R00.2 Palpitations; I25.10 Atherosclerotic heart disease of native coronary artery without angina pectoris; I25.2 Old myocardial infarction; I25.5 Ischemic cardiomyopathy; I48.0 Paroxysmal atrial fibrillation; Z79.01 Long term (current) use of anticoagulants; Z79.84 Long term (current) use of oral hypoglycemic drugs; Z79.899 Other long term (current) drug therapy; Z82.49 Family history of ischemic heart disease and other diseases of the circulatory system; Z90.81 Acquired absence of spleen; Z91.14 Patient's other noncompliance with medication regimen; Z95.1 Presence of aortocoronary bypass graft; Z95.2 Presence of prosthetic heart valve
CPT/HCPCS: 93005 ×2; 99285; 36415; 83880; 80053; 80048; 83605; 83735; 84484; 85025 ×2; 85610; 85730; 71046; 93880; 70450; G0378 ×2; C8929; Q9950; 93306

== ENCOUNTER → 2021-01-18 | Outpatient (CLI) | payer MEDICARE ==
[2021-01-18 11:36] LABS: African American GFR (CKD) 88.6 (60.0-200.0); Albumin 4.6 g/dL (3.80-4.90); Albumin/Globulin Ratio 1.92 (1.60-3.17); Anion Gap 9.6 mmol/L (4.00-12.00); Calcium 9.4 mg/dL (8.7-10.3); Carbon Dioxide 26.4 mmol/L (21.6-31.8); Chol/HDL Ratio 3.72; Globulin 2.4 g/dL (1.6-3.3); Magnesium 2.1 mg/dL (1.5-2.4); Non-African American GFR(CKD) 76.5 (60.0-200.0); Potassium 4.4 mmol/L (3.5-5.5); Total Bilirubin 0.3 mg/dL (0.3-1.2)
[2021-01-18 11:42] LABS: Basophils # (A) 0.11 X 10*3/uL (0.00-0.10); Basophils % (A) 1.2 %; Eosinophils # (A) 0.41 X 10*3/uL (0.04-0.35); Eosinophils % (A) 4.6 %; HCT 49.8 % (39.6-50.0); HGB 16.5 g/dL (13.0-17.0); Lymphocytes # (A) 2.82 X 10*3/uL (0.90-5.00); Lymphocytes % (A) 31.7 %; MCH 31.1 pg (27.0-32.0); MCHC 33.1 g/dL (32.0-37.0); Monocytes # (A) 0.99 X 10*3/uL (0.20-1.00); Monocytes % (A) 11.1 %; Neutrophils # (A) 4.54 X 10*3/uL (1.80-7.70); Neutrophils % (A) 51.2 %; Platelet Count 222 X 10*3/uL (140-440); RDW 12.8 % (11.5-14.5); WBC 8.89 X 10*3/uL (4.50-10.00)
[2021-01-18 11:53] LABS: Urine Creatinine 118.8 mg/dL
== END | disposition home or self-care (01) ==
LOC: LABWHC1 07:58
PROVIDERS: ATTEND Family Medicine
DX: E11.65 Type 2 diabetes mellitus with hyperglycemia (principal); I25.10 Atherosclerotic heart disease of native coronary artery without angina pectoris; E78.5 Hyperlipidemia, unspecified
CPT/HCPCS: 36415; 80053; 80061; 82043; 82570; 83721; 83735; 85025

== ENCOUNTER → 2021-07-14 | Outpatient (CLI) | payer MEDICARE ==
[2021-07-15 11:35] LABS: African American GFR (CKD) 104.9 (60.0-200.0); Albumin 4.4 g/dL (3.80-4.90); Albumin/Globulin Ratio 1.76 (1.60-3.17); Anion Gap 12.1 mmol/L (4.00-12.00); BUN/Creat Ratio 18.75 Ratio (12.00-20.00); Calcium 9.3 mg/dL (8.7-10.3); Carbon Dioxide 21.9 mmol/L (21.6-31.8); Chol/HDL Ratio 3.26; Globulin 2.5 g/dL (1.6-3.3); Non-African American GFR(CKD) 90.5 (60.0-200.0); Potassium 4.3 mmol/L (3.5-5.5); Total Bilirubin 0.7 mg/dL (0.2-1.2); Total Protein 6.9 g/dL (6.2-8.2)
== END | disposition home or self-care (01) ==
LOC: LABWHC1 15:42
PROVIDERS: ATTEND Nurse Practitioner Adult Health
DX: Z13.21 Encounter for screening for nutritional disorder (principal); E11.65 Type 2 diabetes mellitus with hyperglycemia; E78.5 Hyperlipidemia, unspecified
CPT/HCPCS: 36415; 80053; 80061; 82306; 83721

== ENCOUNTER → 2022-04-13 | Outpatient (CLI) | payer MEDICARE ==
[2022-04-13 10:24] LABS: Eosinophils # (A) 0.35 X 10*3/uL (0.04-0.35); Eosinophils % (A) 3.4 %; HCT 48.2 % (39.6-50.0); HGB 15.9 g/dL (13.0-17.0); Immature Grans, Automated 0.4 %; Lymphocytes # (A) 3.05 X 10*3/uL (0.90-5.00); Lymphocytes % (A) 29.2 %; MCH 30.9 pg (27.0-32.0); MCV 93.6 fL (80.0-97.0); Mean Platelet Volume 12.1 fL (9.5-12.2); Monocytes # (A) 1.07 X 10*3/uL (0.20-1.00); Monocytes % (A) 10.2 %; NRBC Per 100 WBC 0 /100 WBCS (0.0-0.0); Neutrophils # (A) 5.83 X 10*3/uL (1.80-7.70); Neutrophils % (A) 55.8 %; Platelet Count 196 X 10*3/uL (140-440); RBC 5.15 X 10*6/uL (4.40-5.60); RDW 12.9 % (11.5-14.5); WBC 10.44 X 10*3/uL (4.50-10.00)
[2022-04-13 10:52] LABS: ALT 27 U/L (10-49); AST 24 U/L (14-35); African American GFR (CKD) 104.9 (60.0-200.0); Albumin 4.2 g/dL (3.8-4.9); Albumin/Globulin Ratio 1.68 (1.60-3.17); Alkaline Phosphatase 68 U/L (41-126); Blood Urea Nitrogen 14.4 mg/dL (9.0-27.0); Calcium 9.4 mg/dL (8.7-10.3); Carbon Dioxide 24.6 mmol/L (20.0-27.5); Chloride 101 mmol/L (96-109); Chol/HDL Ratio 4.66 Ratio; Globulin 2.5 g/dL (1.6-3.3); Glucose 260 mg/dL (70-110); LDL Cholesterol,Calculated 143.4 mg/dL (0.0-131.0); Non-African American GFR(CKD) 90.5 (60.0-200.0); Potassium 4.3 mmol/L (3.5-5.5); Sodium 138 mmol/L (135-145); Total Protein 6.7 g/dL (6.2-8.2)
== END | disposition home or self-care (01) ==
LOC: LABWHC1 06:54
PROVIDERS: ATTEND Family Medicine
DX: Z12.5 Encounter for screening for malignant neoplasm of prostate (principal); Z13.228 Encounter for screening for other metabolic disorders; Z13.0 Encounter for screening for diseases of the blood and blood-forming organs and certain disorders involving the immune mechanism; E78.5 Hyperlipidemia, unspecified; E55.9 Vitamin D deficiency, unspecified
CPT/HCPCS: 80061; 80053; 84443; 85025; 82306; 83036; 36415; G0103

== ENCOUNTER → 2023-06-13 | Outpatient (CLI) | payer MEDICARE ==
[2023-06-13 11:24] LABS: Chol/HDL Ratio 3.66 Ratio
[2023-06-13 11:50] LABS: ALT 20 U/L (10-49); AST 32 U/L (14-35); Albumin 4.2 d/dL (3.8-4.9); Albumin/Globulin Ratio 1.62 Ratio (1.60-3.17); Alkaline Phosphatase 69 U/L (41-126); BUN/Creat Ratio 14.67 Ratio (12.00-20.00); Blood Urea Nitrogen 13.2 mg/dL (9.0-27.0); Calcium 9.5 mg/dL (8.7-10.3); Carbon Dioxide 21.6 mmol/L (21.6-31.8); Chloride 102 mmol/L (96-109); Globulin 2.6 d/dL (1.6-3.3); Glucose 184 mg/dL (70-110); Potassium 4.8 mmol/L (3.5-5.5); Sodium 138 mmol/L (135-145); Total Bilirubin 0.5 mg/dL (0.3-1.2); Total Protein 6.8 d/dL (6.2-8.2)
[2023-06-13 12:12] LABS: Basophils % (A) 1.1 %; Eosinophils # (A) 0.25 X 10*3/uL (0.04-0.35); Eosinophils % (A) 2.8 %; HCT 48.6 % (39.6-50.0); HGB 16.6 d/dL (13.0-17.0); Lymphocytes # (A) 2.63 X 10*3/uL (0.90-5.00); Lymphocytes % (A) 29.6 %; MCHC 34.2 d/dL (32.0-37.0); MCV 93.6 FL (80.0-97.0); Mean Platelet Volume 12.6 FL (9.5-12.2); Monocytes # (A) 1.08 X 10*3/uL (0.20-1.00); Monocytes % (A) 12.1 %; NRBC Per 100 WBC 0 X 10*3/uL (0.00-0.01); Neutrophils # (A) 4.81 X 10*3/uL (1.80-7.70); Neutrophils % (A) 54.2 %; Platelet Count 266 X 10*3/uL (140-440); RBC 5.19 X 10*6/uL (4.40-5.60); RBC Morphology Normal (Normal); RDW 12.8 % (11.5-14.5); WBC 8.89 X 10*3/uL (4.50-10.00)
== END | disposition home or self-care (01) ==
LOC: LABWHC1 06:53
PROVIDERS: ATTEND Family Medicine
DX: I10 Essential (primary) hypertension (principal); E11.65 Type 2 diabetes mellitus with hyperglycemia; I25.10 Atherosclerotic heart disease of native coronary artery without angina pectoris; E55.9 Vitamin D deficiency, unspecified; I48.11 Longstanding persistent atrial fibrillation; E78.2 Mixed hyperlipidemia; R53.83 Other fatigue
CPT/HCPCS: 36415; 80053; 80061; 82306; 83036; 84443; 85025

== ENCOUNTER → 2023-06-21 | Outpatient (CLI) | payer MEDICARE | END | disposition home or self-care (01) | LOC: LABWHC1 15:42 | PROVIDERS: ATTEND Family Medicine | DX: I10 Essential (primary) hypertension (principal); E11.65 Type 2 diabetes mellitus with hyperglycemia; I25.10 Atherosclerotic heart disease of native coronary artery without angina pectoris; E55.9 Vitamin D deficiency, unspecified; I48.11 Longstanding persistent atrial fibrillation; E78.2 Mixed hyperlipidemia; R53.83 Other fatigue | CPT/HCPCS: 36415 ==

== ENCOUNTER → 2023-09-04 | Outpatient (CLI) | payer MEDICARE | END | disposition home or self-care (01) | LOC: LABWHC1 15:58 | PROVIDERS: ATTEND Psychiatry & Neurology Neurology | DX: G62.9 Polyneuropathy, unspecified (principal); Z79.899 Other long term (current) drug therapy | CPT/HCPCS: 36415; 82607; 83036 ==

== ENCOUNTER → 2023-12-26 | Outpatient (CLI) | payer MEDICARE ==
[2023-12-26 11:38] LABS: HCT 48.1 % (39.6-50.0); HGB 16.1 g/dL (13.0-17.0); MCH 30.9 pg (27.0-32.0); MCHC 33.5 g/dL (32.0-37.0); MCV 92.3 FL (80.0-97.0); NRBC Per 100 WBC 0 X 10*3/uL (0.00-0.01); Platelet Count 214 X 10*3/uL (140-440); RBC 5.21 X 10*6/uL (4.40-5.60); RDW 12.5 % (11.5-14.5); WBC 9.08 X 10*3/uL (4.50-10.00)
[2023-12-26 11:39] LABS: Basophils # (A) 0.11 X 10*3/uL (0.00-0.10); Basophils % (A) 1.2 %; Eosinophils # (A) 0.34 X 10*3/uL (0.04-0.35); Eosinophils % (A) 3.7 %; Lymphocytes # (A) 2.97 X 10*3/uL (0.90-5.00); Lymphocytes % (A) 32.7 %; Neutrophils # (A) 4.64 X 10*3/uL (1.80-7.70); Neutrophils % (A) 51.2 %
[2023-12-26 11:59] LABS: ALT 23 U/L (10-49); AST 22 U/L (14-35); Albumin 4.2 g/dL (3.8-4.9); Albumin/Globulin Ratio 1.62 Ratio (1.60-3.17); Alkaline Phosphatase 60 U/L (41-126); Blood Urea Nitrogen 17.1 mg/dL (9.0-27.0); Calcium 9.7 mg/dL (8.7-10.3); Carbon Dioxide 23.6 mmol/L (21.6-31.8); Chloride 103 mmol/L (96-109); Chol/HDL Ratio 3.57 Ratio; Globulin 2.6 g/dL (1.6-3.3); Glucose 192 mg/dL (70-110); LDL Cholesterol,Calculated 126.7 mg/dL (0.0-131.0); Potassium 4.6 mmol/L (3.5-5.5); Sodium 140 mmol/L (135-145); Total Bilirubin 0.6 mg/dL (0.3-1.2); Total Protein 6.8 g/dL (6.2-8.2); Uric Acid 6.4 mg/dL (3.7-8.7)
[2023-12-26 12:04] LABS: PSA Annual Screen 0.968 ng/mL (0.000-4.000)
--- NOTE | 2023-12-26 12:30 | XR ---
EXAMINATION TYPE: XR knee 4V bilateral DATE OF EXAM: 12/26/2023 CLINICAL HISTORY: pain TECHNIQUE: 4 views of the knees bilaterally are obtained. COMPARISON: None. FINDINGS: There is no acute fracture/dislocation. The tri-compartment joint spaces appear moderatel y narrowed. Small suprapatellar joint effusion seen bilaterally. The overlying soft tissue appears un remarkable. IMPRESSION: There is no acute fracture or dislocation ICD 10 NO FRACTURE, INITIAL EVALUATION
== END | disposition home or self-care (01) ==
LOC: LABWHC1 06:51
PROVIDERS: ATTEND Internal Medicine
DX: Z12.5 Encounter for screening for malignant neoplasm of prostate (principal); Z11.59 Encounter for screening for other viral diseases; E11.9 Type 2 diabetes mellitus without complications; M17.10 Unilateral primary osteoarthritis, unspecified knee
CPT/HCPCS: 86803; 80061; 80053; 84443; 84550; 85025; 73564; 36415; G0103

== ENCOUNTER → 2024-08-28 | Outpatient (CLI) | payer MEDICARE ==
--- NOTE | 2024-08-28 15:08 | CT ---
EXAMINATION TYPE: CT cervical spine wo con CT DLP: 712 mGycm, Automated exposure control for dose reduction was used. DATE OF EXAM: 08/28/2024 3:02 PM COMPARISON: CT brain C-spine 09/06/2019. CLINICAL INDICATION:Male, 74 years old with history of M54.2 CERVICALGIA, M25.512; PHH, Fell and is n ow having pain in neck running down into left shoulder/arm. TECHNIQUE: Axial CT images from the skull base to the inferior aspect of T2 we obtained without intra venous contrast. Coronal and sagittal reformatted images were also reviewed. FINDINGS: Fracture: None. Osseous structures: Multilevel degenerative disc disease changes with endplate spurring and disc spac e narrowing. Vertebral alignment: Within normal limits. Spinal canal/Neural Foramina: No significant central canal or neural foraminal stenosis at C2-C3. Broad-based disc bulge at C3-C4 with mild effacement of the anterior thecal sac. Moderate right and m ild left neural foraminal stenosis secondary to uncovertebral joint hypertrophy at this level. Broad-based disc bulge with mild effacement of the anterior thecal sac at C4-C5. Mild right neural fo raminal stenosis secondary to uncovertebral joint hypertrophy. Left neuroforamen is patent. Posterior disc osteophyte complex with mild effacement of the anterior thecal sac at C5-C6. Mild righ t neural foraminal stenosis secondary to uncovertebral joint hypertrophy. Left neural foramen is yeboah nt. Posterior disc osteophyte complex with mild effacement of the anterior thecal sac at C6-C7. Moderate bilateral neural foraminal stenosis secondary to uncovertebral joint hypertrophy. No significant neural foraminal or central canal stenosis at C7-T1. Neck soft tissues: Prevertebral soft tissues are within normal limits. Other: The airway is patent. The lung apices are clear. IMPRESSION: 1. No evidence of cervical spine fracture. 2. Moderate multilevel degenerative disc disease as described above. [facility], , 08/28/2024 3:06 PM
--- NOTE | 2024-08-29 22:48 | XR ---
EXAMINATION TYPE: XR shoulder complete LT DATE OF EXAM: 08/28/2024 3:01 PM COMPARISON: None. CLINICAL INDICATION: Male, 74 years old with history of M54.2 CERVICALGIA, M25.512, TECHNIQUE: Left XR shoulder complete LT view(s) obtained. FINDINGS: The humeral head articulates with the glenoid. The acromio-clavicular junction is normal. No acute fractures or dislocations are evident. A follow up study can be performed 7-10 days from acute trauma for continued pain. MRI can be perfor med if soft tissue evaluation would be of benefit. IMPRESSION: 1. No acute osseous left shoulder abnormality. [facility], Workstation: [email or web address], 08/29/2024 10:45 PM
== END | disposition home or self-care (01) ==
LOC: RADCTMAIN 14:26
PROVIDERS: ATTEND Internal Medicine
DX: M50.321 Other cervical disc degeneration at C4-C5 level (principal); M25.512 Pain in left shoulder
CPT/HCPCS: 72125

== ENCOUNTER → 2024-10-09 | Outpatient (CLI) | payer MEDICARE ==
[2024-10-09 15:03] LABS: Basophils # (A) 0.13 X 10*3/uL (0.00-0.10); Basophils % (A) 1.4 %; Eosinophils # (A) 0.37 X 10*3/uL (0.04-0.35); Eosinophils % (A) 3.9 %; HCT 48.9 % (39.6-50.0); HGB 16.3 g/dL (13.0-17.0); Lymphocytes # (A) 3.22 X 10*3/uL (0.90-5.00); MCH 30.8 pg (27.0-32.0); MCHC 33.3 g/dL (32.0-37.0); MCV 92.3 FL (80.0-97.0); Mean Platelet Volume 12.7 FL (9.5-12.2); Monocytes # (A) 0.87 X 10*3/uL (0.20-1.00); Monocytes % (A) 9.2 %; NRBC Per 100 WBC 0 X 10*3/uL (0.00-0.01); Neutrophils # (A) 4.84 X 10*3/uL (1.80-7.70); Neutrophils % (A) 51.1 %; Platelet Count 233 X 10*3/uL (140-440); RDW 12.9 % (11.5-14.5); WBC 9.47 X 10*3/uL (4.50-10.00)
[2024-10-09 15:51] LABS: Chol/HDL Ratio 3.48 Ratio; LDL Cholesterol,Calculated 125.6 mg/dL (0.0-131.0)
[2024-10-09 16:00] LABS: ALT 29 U/L (10-49); AST 26 U/L (14-35); Albumin 4.2 g/dL (3.8-4.9); Albumin/Globulin Ratio 1.62 Ratio (1.60-3.17); Alkaline Phosphatase 65 U/L (41-126); Blood Urea Nitrogen 14.4 mg/dL (9.0-27.0); Calcium 9.7 mg/dL (8.7-10.3); Carbon Dioxide 23.1 mmol/L (21.6-31.8); Chloride 100 mmol/L (96-109); Globulin 2.6 g/dL (1.6-3.3); Glucose 295 mg/dL (70-110); Potassium 4.6 mmol/L (3.5-5.5); Sodium 138 mmol/L (135-145); Total Bilirubin 0.5 mg/dL (0.3-1.2); Total Protein 6.8 g/dL (6.2-8.2)
== END | disposition home or self-care (01) ==
LOC: LABWHC1 09:51
PROVIDERS: ATTEND Internal Medicine
DX: I25.10 Atherosclerotic heart disease of native coronary artery without angina pectoris (principal); E11.65 Type 2 diabetes mellitus with hyperglycemia; E55.9 Vitamin D deficiency, unspecified
CPT/HCPCS: 36415; 80053; 80061; 82306; 83036; 84443; 85025

== ENCOUNTER → 2024-10-28 | Outpatient (CLI) | payer MEDICARE ==
--- NOTE | 2024-10-28 15:32 | US ---
EXAMINATION TYPE: US thyroid st tissue head/neck DATE OF EXAM: 10/28/2024 COMPARISON: NONE CLINICAL INDICATION: Male, 74 years old with history of K11.20 SIALOADENITIS, UNSPECIFIED; left ear i nfection, parotitis. Pt. no longer symptomatic after course of antibiotics TECHNIQUE: Grayscale and color Doppler imaging of the bilateral parotid glands. FINDINGS: GLAND SIZE: Right: 7.5x4.2x1.5cm Left: 7.2x3.6x1.4cm Symmetric normal-sized parotid glands without concerning solid or cystic mass bilaterally. IMPRESSION: Unremarkable study [facility], , 10/28/2024 3:30 PM
== END | disposition home or self-care (01) ==
LOC: RADUSWWP 14:48
PROVIDERS: ATTEND Internal Medicine
DX: K11.20 Sialoadenitis, unspecified (principal)
CPT/HCPCS: 76536